=== PATIENT | male | born 1965 | race American Indian/Alaskan Native ===

== ENCOUNTER 2021-11-11 18:13 | Inpatient (IN) | payer MEDICARE ==
[2021-11-11] MEDS ORDERED: cefTRIAXone/NS 2 GM/100 ML 2 GM/100 ML BAG IV ONE ×2 (19:15→22:30)
[2021-11-11] MEDS ORDERED: AZITHROMYCIN/NS 500 MG/250 ML 500 MG/250 ML BAG IV ONE ×2 (19:15→22:30)
[2021-11-11] MEDS ORDERED: methylPREDNISolone Sod Succinate 125 MG/2 ML INJ IV ONE (19:15)
--- NOTE | 2021-11-11 19:18 | Emergency Department Report ---
ED Shortness of Breath HPI - General Chief Complaint: Dyspnea/Respdistress Stated Complaint: STEFF Time Seen by Provider: 11/11/21 19:01 Source: patient, EMS Mode of arrival: Stretcher Limitations: Physical Limitation - History of Present Illness Initial Comments: Patient is a 56-year-old male who presents emergency room with complaints of shortness of breath. Patient states the shortness of breath started 5 hours ago. Patient states shortness of breath worsening. Patient brought in by EMS. Patient has been intubated in the past. Patient states that the shortness of breath better with rest and worse with movement. Patient states he is bedbound due to his weight. Patient denies chest pain. Patient denies fever and chills. Patient complains of cough. Patient dates the cough is dry. Patient denies recent travel. Patient denies recent international travel. Patient denies exposure to the novel coronavirus. Patient denies sick contacts. Patient denies fever and chills. Patient denies loss of smell.. Patient denies diarrhea. Patient denies coming in contact with anybody with symptoms of the novel coronavirus. MD Complaint: shortness of breath -: Sudden Severity: severe Consistency: constant Improves With: rest Worsens With: movement Associated Symptoms: denies other symptoms Treatments Prior to Arrival: oxygen - Related Data Home Oxygen Therapy: No Allergies Allergy/AdvReac Type Severity Reaction Status Date / Time No Known Allergies Allergy Verified 11/11/21 20:58 ED Review of Systems ROS: Stated complaint: STEFF Other details as noted in HPI Constitutional: denies: chills, fever Eyes: denies: eye pain, eye discharge, vision change ENT: denies: ear pain, throat pain Respiratory: see HPI, cough, shortness of breath. denies: wheezing Cardiovascular: denies: chest pain, palpitations Endocrine: no symptoms reported Gastrointestinal: denies: abdominal pain, nausea, diarrhea Genitourinary: denies: urgency, dysuria Musculoskeletal: denies: back pain, joint swelling, arthralgia Skin: denies: rash, lesions Neurological: denies: headache, weakness, paresthesias Psychiatric: denies: anxiety, depression Hematological/Lymphatic: denies: easy bleeding, easy bruising ED Past Medical Hx - Past Medical History Previous Medical History?: Yes Hx Hypertension: Yes Hx Congestive Heart Failure: No Hx Diabetes: No Additional medical history: obesity, - Surgical History Past Surgical History?: Yes Additional Surgical History: Right hand surgery - Family History Family history: no significant - Social History Smoking Status: Never Smoker Substance Use Type: None ED Physical Exam - General Limitations: Physical Limitation General appearance: lethargic - Head Head exam: Present: atraumatic, normocephalic - Eye Eye exam: Present: normal appearance - ENT ENT exam: Present: mucous membranes dry - Neck Neck exam: Present: normal inspection - Respiratory Respiratory exam: Present: respiratory distress, accessory muscle use, decreased breath sounds - Cardiovascular Cardiovascular Exam: Present: regular rate, normal rhythm. Absent: systolic murmur, diastolic murmur, rubs, gallop - GI/Abdominal GI/Abdominal exam: Present: soft, normal bowel sounds - Rectal Rectal exam: Present: deferred - Extremities Exam Extremities exam: Present: normal inspection - Back Exam Back exam: Present: normal inspection - Neurological Exam Neurological exam: Present: alert, oriented X3 - Skin Skin exam: Present: warm, dry, intact, normal color. Absent: rash ED Course Vital Signs 11/11/21 11/11/21 11/11/21 18:19 19:09 20:34 Temperature 98.2 F Pulse Rate 91 H 86 91 H Respiratory 18 36 H 14 Rate Blood Pressure 136/68 Blood Pressure 103/78 131/73 [Left] O2 Sat by Pulse 100 95 100 Oximetry 11/11/21 11/11/21 11/11/21 21:19 22:59 23:00 Temperature Pulse Rate 87 76 76 Respiratory 20 20 14 Rate Blood Pressure Blood Pressure 124/82 74/30 104/53 [Left] O2 Sat by Pulse 99 100 93 Oximetry 11/11/21 11/12/21 11/12/21 23:13 00:04 00:09 Temperature Pulse Rate 82 87 86 Respiratory 17 17 19 Rate Blood Pressure Blood Pressure 113/61 145/79 145/79 [Left] O2 Sat by Pulse 95 97 100 Oximetry - Reevaluation(s) Reevaluation #1: Patient arrived via EMS. Patient is hypoxic. Patient will be placed on BiPAP. Respiratory therapy placed on BiPAP. 11/11/21 190 Patient's oxygen saturation on BiPAP is 96%. We will continue to monitor the patient. 11/11/21 19:10 Reevaluation #2: Patient increasing lethargic. Patient having increased work of breathing and worsening hypoxia. Patient will be intubated. 11/11/21 20:55 Reevaluation #3: Patient intubated without difficulty. See procedure note. 11/11/21 21:20 Reevaluation #4: Central line placed. Patient did not have any IV access post intubation so a central line was placed in the right femoral vein. See procedure note. Patient tolerated procedure well. Patient is intubated and the patient's oxygen saturation is improved. Patient given sedation. 11/11/21 22:06 Patient's blood pressure is decreasing. Patient was given a fluid bolus of 500 mils. Patient also be placed on Levophed. We will continue to monitor blood pressure. Patient's oxygen stable on the vent. 11/11/21 22:33 Reevaluation #5: Patient's blood pressure is improving. 11/11/21 23:02 Patient still on the fentanyl drip and the Levophed. Patient's blood pressure is stabilizing. 11/11/21 23:31 - Consultations Consultation #1: Hospitalist consulted for admission. Hospitalist to admit patient. 11/11/21 22:34 Consultation #2: I discussed the case with nephrology, Dr. Vargas. Dr. Vargas wants to emergent dialysis for the patient. 11/11/21 22:45 Consultation #3: I discussed the case with Dr. Umana. Dr. Umana is going to come in place the Vas-Cath. Dr. Buckley also accepted the patient to be admitted to the ICU. 11/11/21 23:30 - Central Line Placement Right Femoral Consent Obtained: emergent situation Time Out Performed: Yes Patient Placed on Monitor/Pulse Ox: Yes MD Prep: mask, gown, gloves Central Line Prep: Chlorhexidine scrub, sterile drapes applied Local Anesthesia Used: Lidocaine 1% Ultrasound Used for Placement: Yes Central Line Lumen Inserted: triple Reason for Insertion: Emergency Venous Access Bloods Obtained for Lab: No Central Line Position: good blood return, all ports aspirated, flus, sutured in place with 2-0 Dressing Applied: Tegaderm Patient Tolerated Procedure: well, no complications Complications: none Additional Comments: Central line placed without difficulty. Patient had no complications. Minimal blood loss. Patient required 1 stick. Humbertoger technique used. - Intubation Time Out Performed: Yes Sedative: Etomidate Paralytic: Rocuronium Laryngoscope: fiberoptic video scope Size: 3 Assist Device Used: fiberoptic device ET Tube Size: 7.5 Tube Secured Location: teeth Tube Placement Confirmation: visualized tube passing t, equal breath sounds bilat, no breath sounds over epi, confirmation by capnometr Patient Tolerated Procedure: well, no complications ED Medical Decision Making - Lab Data Result diagrams: 11/11/21 19:49 11/11/21 19:49 - EKG Data -: EKG Interpreted by Me EKG shows normal: sinus rhythm, axis, intervals, QRS complexes, ST-T waves Rate: normal - Radiology Data Radiology results: report reviewed interpreted by me: Chest x-ray shows a right sided pneumonia. CHEST 1 VIEW 11/11/2021 6:39 PM INDICATION / CLINICAL INFORMATION: Dyspnea. COMPARISON: None available. FINDINGS: SUPPORT DEVICES: None. Diffuse opacities are seen throughout the right lung with almost complete opacification. Increased interstitial prominence throughout the left lung. Heart is enlarged - Medical Decision Making Patient is a 56-year-old male who presented to the emergency room with complaints of shortness of breath and dyspnea on exertion and cough. Patient initially started on BiPAP. However, the patient continued to decline and became increasingly lethargic and increased work of breathing as well as hypoxic while on BiPAP. Patient eventually was intubated. Patient intubated without difficulty. Patient's hypoxia improved with post intubation. Patient was placed on a fentanyl drip for sedation. After initial evaluation, the patient was given early antibiotics due to the high suspicion of a pneumonia. Patient had a chest x-ray which shows pneumonia. I personally reviewed the chest x-ray. After the patient, the patient had a central line placed for good IV access. Patient had a triple-lumen placed in the right femoral vein. Patient had labs done which showed multiple abnormalities to include acute renal failure, hyperkalemia, elevated WBC, multiple chemistry abnormalities. Patient eventually became hypoxic and the patient was placed on Levophed. Patient was also given normal saline bolus. Patient's blood pressure responded well to saline and Levophed. I then discussed the patient with the hospitalist for admission. Patient was accepted to the hospitalist however I consulted nephrology and creative manager prior to admission. The medical doctor md recommended emergent dialysis. I then discussed the case with the creative manager to have the creative manager come place a dialysis cath. Critical care time documented due to the multiple reassessments, prolonged time at the bedside, interpretation of diagnostics and labs And discussion with consultants. - Differential Diagnosis Shortness of breath, respiratory failure, pneumonia Critical Care Time: Yes Critical care time in (mins) excluding proc time.: 80 Critical care attestation.: If time is entered above; I have spent that time in minutes in the direct care of this critically ill patient, excluding procedure time. Critical Care Time: 80 minutes ED Disposition Clinical Impression: Hypoxia, SOB (shortness of breath), Hyperkalemia Acute respiratory failure Qualifiers: Respiratory failure complication: hypoxia Qualified Code(s): J96.01 - Acute respiratory failure with hypoxia Pneumonia Qualifiers: Pneumonia type: due to unspecified organism Laterality: unspecified laterality Lung location: unspecified part of lung Qualified Code(s): J18.9 - Pneumonia, unspecified organism Hypotension Qualifiers: Hypotension type: unspecified hypotension type Qualified Code(s): I95.9 - Hypotension, unspecified Sepsis Qualifiers: Sepsis type: sepsis due to unspecified organism Sepsis acute organ dysfunction status: with acute organ dysfunction Severe sepsis acute organ dysfunction type: acute renal failure Acute renal failure type: unspecified Severe sepsis shock status: without septic shock Qualified Code(s): A41.9 - Sepsis, unspecified organism Acute renal failure (ARF) Qualifiers: Acute renal failure type: unspecified Qualified Code(s): N17.9 - Acute kidney failure, unspecified Disposition: ADMITTED INPATIENT Is pt being admited?: Yes Does the pt Need Aspirin: No Condition: Critical Time of Disposition: 23:06
--- NOTE | 2021-11-11 19:46 | XRay Report ---
CHEST 1 VIEW 11/11/2021 6:39 PM INDICATION / CLINICAL INFORMATION: Dyspnea. COMPARISON: None available. FINDINGS: SUPPORT DEVICES: None. Diffuse opacities are seen throughout the right lung with almost complete opacification. Increased in terstitial prominence throughout the left lung. Heart is enlarged Signer Name: Daniel Stephens MD Signed: 11/11/2021 7:42 PM Workstation Name: [id number]
[2021-11-11 20:25] LABS: Basophils # (Auto) 0.1 K/mm3 (0.0-0.1); Basophils % (Auto) 0.5 % (0.0-1.8); Eosinophils # (Auto) 0.1 K/mm3 (0.0-0.4); Eosinophils % (Auto) 0.9 % (0.0-4.3); Lymphocytes # (Auto) 1.1 K/mm3 (1.2-5.4); Mean Corpuscular HGB Conc 29 % (32-34); Mean Corpuscular Volume 93 fl (84-94); Monocytes % (Auto) 8.8 % (0.0-7.3); Platelet Count 255 K/mm3 (140-440); Red Blood Count 3.73 M/mm3 (3.65-5.03)
[2021-11-11 20:30] LABS: Hematocrit 34.8 % (35.5-45.6); Hemoglobin 10.1 gm/dl (11.8-15.2); Red Cell Distribution Width 20.1 % (13.2-15.2)
[2021-11-11 20:43] LABS: Calcium 7.5 mg/dL (8.4-10.2)
[2021-11-11] MEDS ORDERED: INSULIN REGULAR, HUMAN 100 UNITS/1 ML IV ONE (20:52)
[2021-11-11] MEDS ORDERED: DEXTROSE 50% IN WATER (25GM) 50 ML SYRINGE IV ONE (20:52)
[2021-11-11] MEDS ORDERED: CALCIUM CHLORIDE 1,000 MG/10 ML SYRINGE IV ONE ×2 (20:52→22:30)
[2021-11-11] MEDS ORDERED: LIP THERAPY VASELINE TP PRN (20:56)
[2021-11-11] MEDS ORDERED: MINERAL OIL/PETROLATUM, WHITE OPHTH OINT 3.5 GM OU PRN (20:56)
[2021-11-11] MEDS ORDERED: ETOMIDATE 20 MG/10 ML INJ IV ONE (21:04)
[2021-11-11] MEDS ORDERED: ROCURONIUM 50 MG/5 ML INJ IV ONE (21:05)
[2021-11-11] MEDS: fentaNYL DRIP Premix 2,000 MCG/100 ML BAG IV SCH (21:17)
[2021-11-11 21:20] LABS: Chol/HDL Ratio 3.39 %
[2021-11-11] MEDS ORDERED: LORazepam 2 MG/ML VIAL ONE (21:36)
[2021-11-11] MEDS ORDERED: LORazepam 2 MG/ML VIAL IM ONE (21:43)
[2021-11-11] MEDS: fentaNYL 100 MCG/2 ML INJ IV PRN (22:17)
[2021-11-11] MEDS ORDERED: methylPREDNISolone Sod Succinate 125 MG/2 ML INJ ONE (22:20)
[2021-11-11] MEDS ORDERED: SODIUM CHLORIDE 0.9% 500 ML 500 ML ONE (22:27)
[2021-11-11] MEDS ORDERED: SODIUM CHLORIDE 0.9% 500 ML 500 ML IV ONE (22:31)
[2021-11-11] MEDS: NORepinephrine/NS 8 MG-250 ML 8 MG/250 ML INFUS..BTL IV SCH (22:34)
[2021-11-11] MEDS ORDERED: HYDROmorphone 1 MG/1 ML INJ IV PRN (22:40)
[2021-11-11] MEDS ORDERED: DEXTROSE 50% IN WATER (25GM) 50 ML SYRINGE IV PRN (22:40)
[2021-11-11] MEDS ORDERED: ACETAMINOPHEN 325 MG TAB PO PRN (22:40)
[2021-11-11] MEDS ORDERED: MORPHINE 2 MG/1 ML INJ IV PRN (22:40)
[2021-11-11] MEDS ORDERED: ALBUTEROL 2.5 MG/3 ML NEBU IH PRN (22:40)
[2021-11-11] MEDS ORDERED: ONDANSETRON 4 MG/2 ML INJ IV PRN (22:40)
[2021-11-11] MEDS ORDERED: ALBUTEROL 2.5 MG/3 ML NEBU IH ONE (22:49)
--- NOTE | 2021-11-11 22:49 | History and Physical Report ---
History of Present Illness Date of examination: 11/11/21 Date of admission: 11/11/21 Chief complaint: Acute respiratory failure History of present illness: 56-year-old male with history of diabetes, hypertension, obesity was brought to the emergency room because of shortness of breath. Patient states the shortness of breath started 5 hours ago. Patient states shortness of breath worsening. Patient brought in by EMS. Patient has been intubated in the past. Patient states that the shortness of breath better with rest and worse with movement. Patient states he is bedbound due to his weight. Patient denies chest pain. Patient denies fever and chills. Patient complains of cough. Patient dates the cough is dry. In the emergency room patient is found to have acute respiratory failure subsequently patient was intubated. Patient also found to have acute renal failure BUN is 107 creatinine 13.8, potassium 7.6, bicarb 30, WBC 11.5, chest x- ray shows diffuse opacities are seen throughout the right lung with almost complete opacification. Increased interstitial prominence throughout the left lung. So going to admit the patient to the ICU put the patient on IV antibiotic patient already get insulin D50 calcium gluconate and Kayexalate. ER physician talked with critical care and nephrology for emergent hemodialysis and management Past History Past Medical History: diabetes, hypertension, other (Obesity) Past Surgical History: Other (Right hand surgery) Social history: other (Non-smoker) Family history: no significant family history Medications and Allergies Allergies Allergy/AdvReac Type Severity Reaction Status Date / Time No Known Allergies Allergy Verified 11/11/21 20:58 Active Meds: Active Medications Fentanyl (Fentanyl 100 Mcg/2 Ml Inj) 50 mcg IV Q10MIN PRN PRN Reason: ANALGESIA Last Admin: 11/11/21 22:17 Dose: 50 mcg Hydrophilic Ointment (Lip Therapy Vaseline) 1 applic TP Q2HR PRN PRN Reason: Dry Lips Fentanyl Citrate (Fentanyl Drip Premix) 2,000 mcg in 100 mls @ 13.608 mls/hr IV TITR BAO; Protocol Last Titration: 11/11/21 22:18 Dose: 1 mcg/kg/hr, 13.608 mls/hr Azithromycin (Zithromax/Ns) 500 mg in 250 mls @ 250 mls/hr IV ONCE ONE; Protocol Stop: 11/11/21 23:29 Last Admin: 11/11/21 22:43 Dose: 250 mls/hr Ceftriaxone Sodium (Rocephin/Ns 2 Gm/100 Ml) 2 gm in 100 mls @ 200 mls/hr IV ONCE ONE; Protocol Stop: 11/11/21 22:59 Last Admin: 11/11/21 22:42 Dose: 200 mls/hr NORepinephrine/NS 8 MG-250 ML (Norepinephrine/Ns 8 Mg-250 Ml (Double Conc)) 8 mg in 250 mls @ 3.75 mls/hr IV TITRATE BAO; Protocol Last Admin: 11/11/21 22:34 Dose: 2 mcg/min, 3.75 mls/hr Sodium Chloride (Nacl 0.9% 500 Ml) 500 mls @ 999 mls/hr IV ONCE ONE Stop: 11/11/21 23:01 Multi-Ingred Cream/Lotion/Oil/Oint (Mineral Oil/Petrolatum, White Ophth Oint 3.5 Gm) 1 applic OU Q4HR PRN PRN Reason: Dry Eye(s) Review of Systems All systems: negative Constitutional: weakness, malaise, lethargy Cardiovascular: shortness of breath, dyspnea on exertion Respiratory: shortness of breath, dyspnea on exertion Exam - Constitutional Vitals: Temp Pulse Resp BP Pulse Ox 98.2 F 87 20 124/82 99 11/11/21 18:19 11/11/21 21:19 11/11/21 21:19 11/11/21 21:19 11/11/21 21:19 General appearance: Present: severe distress - EENT Eyes: Present: PERRL ENT: hearing intact, clear oral mucosa - Neck Neck: Present: supple, normal ROM - Respiratory Respiratory effort: normal Respiratory: bilateral: diminished - Cardiovascular Heart Sounds: Present: S1 & S2. Absent: rub, click - Extremities Extremities: pulses symmetrical, No edema Peripheral Pulses: within normal limits - Abdominal General gastrointestinal: Present: soft, non-tender, non-distended, normal bowel sounds Male genitourinary: Present: normal - Integumentary Integumentary: Present: clear, warm, dry - Musculoskeletal Musculoskeletal: gait normal, strength equal bilaterally - Psychiatric Psychiatric: other (Patient is on vent) - Neurologic Neurologic: CNII-XII intact, moves all extremities, other (Patient is on vent) HEART Score - HEART Score Troponin: Troponin T 0.324 ng/mL (0.00-0.029) H* 11/11/21 19:49 Results - Labs CBC & Chem 7: 11/11/21 19:49 11/11/21 19:49 Labs: Laboratory Last Values WBC 11.5 K/mm3 (4.5-11.0) H 11/11/21 19:49 RBC 3.73 M/mm3 (3.65-5.03) 11/11/21 19:49 Hgb 10.1 gm/dl (11.8-15.2) L 11/11/21 19:49 Hct 34.8 % (35.5-45.6) L 11/11/21 19:49 MCV 93 fl (84-94) 11/11/21 19:49 MCH 27 pg (28-32) L 11/11/21 19:49 MCHC 29 % (32-34) L 11/11/21 19:49 RDW 20.1 % (13.2-15.2) H 11/11/21 19:49 Plt Count 255 K/mm3 (140-440) 11/11/21 19:49 Lymph % (Auto) 10.0 % (13.4-35.0) L 11/11/21 19:49 [place] % (Auto) 8.8 % (0.0-7.3) H 11/11/21 19:49 Eos % (Auto) 0.9 % (0.0-4.3) 11/11/21 19:49 Baso % (Auto) 0.5 % (0.0-1.8) 11/11/21 19:49 Lymph # (Auto) 1.1 K/mm3 (1.2-5.4) L 11/11/21 19:49 [place] # (Auto) 1.0 K/mm3 (0.0-0.8) H 11/11/21 19:49 Eos # (Auto) 0.1 K/mm3 (0.0-0.4) 11/11/21 19:49 Baso # (Auto) 0.1 K/mm3 (0.0-0.1) 11/11/21 19:49 Seg Neutrophils % 79.8 % (40.0-70.0) H 11/11/21 19:49 Seg Neutrophils # 9.2 K/mm3 (1.8-7.7) H 11/11/21 19:49 Sodium 140 mmol/L (137-145) 11/11/21 19:49 Potassium 7.6 mmol/L (3.6-5.0) H* 11/11/21 19:49 Chloride 107.8 mmol/L (98-107) H 11/11/21 19:49 Carbon Dioxide 13 mmol/L (22-30) L 11/11/21 19:49 Anion Gap 27 mmol/L 11/11/21 19:49 BUN 107 mg/dL (9-20) H 11/11/21 19:49 Creatinine 13.8 mg/dL (0.8-1.3) H 11/11/21 19:49 Estimated GFR 5 ml/min 11/11/21 19:49 BUN/Creatinine Ratio 8 % 11/11/21 19:49 Glucose 96 mg/dL (75-100) 11/11/21 19:49 Lactic Acid 0.90 mmol/L (0.7-2.0) 11/11/21 19:49 Calcium 7.5 mg/dL (8.4-10.2) L 11/11/21 19:49 Total Bilirubin 0.40 mg/dL (0.1-1.2) 11/11/21 19:49 AST 10 units/L (5-40) 11/11/21 19:49 ALT 7 units/L (7-56) 11/11/21 19:49 Alkaline Phosphatase 111 units/L (35-129) 11/11/21 19:49 Troponin T 0.324 ng/mL (0.00-0.029) H* 11/11/21 19:49 Total Protein 9.1 g/dL (6.3-8.2) H 11/11/21 19:49 Albumin 3.0 g/dL (3.9-5) L 11/11/21 19:49 Albumin/Globulin Ratio 0.5 % 11/11/21 19:49 Triglycerides 79 mg/dL (2-149) 11/11/21 19:49 Cholesterol 146 mg/dL (50-199) 11/11/21 19:49 LDL Cholesterol Direct 85 mg/dL (50-130) 11/11/21 19:49 HDL Cholesterol 43 mg/dL (40-59) 11/11/21 19:49 Cholesterol/HDL Ratio 3.39 % 11/11/21 19:49 - Imaging and Cardiology Chest x-ray: report reviewed Assessment and Plan VTE prophylaxis?: Chemical Plan of care discussed with patient/family: Yes - Patient Problems (1) Acute respiratory failure Current Visit: Yes Status: Acute Qualifiers: Respiratory failure complication: hypoxia Qualified Code(s): J96.01 - Acute respiratory failure with hypoxia Plan to address problem: Admit the patient to the ICU. Patient is on vent. DuoNeb by nebulizer every 4 hours. Albuterol via nebulizer every 4 hours as needed. Will consult critical care evaluation (2) Pneumonia Current Visit: Yes Status: Acute Plan to address problem: Rocephin 2 g IV daily. Zithromax 500 g p.o. daily. DuoNeb by nebulizer every 4 hours. Blood culture and sputum culture. Consult critical care evaluation. Recheck CBC in the morning (3) Hypoxia Current Visit: Yes Status: Acute Plan to address problem: Patient is on vent. DuoNeb by nebulizer every 4 hours. Albuterol via nebulizer every 4 hours as needed. Will consult critical care evaluation (4) KD (acute kidney injury) Current Visit: Yes Status: Acute Plan to address problem: Avoid nephrotoxic drug. Half-normal saline at the rate of 100 cc/h. Renally dose medication. Case discussed with nephrology for emergent dialysis. Recheck BMP in the morning (5) Hyperkalemia Current Visit: Yes Status: Acute Plan to address problem: Patient already get insulin regular 10 units IV x1 dose. D50 x1 ampoule. Calcium chloride 1000 mg IV x1 dose. Kayexalate 30 g p.o. x1 dose. Case discussed with nephrology for emergent dialysis. Recheck BMP in the morning (6) Diabetes Current Visit: Yes Status: Acute Plan to address problem: Accu-Chek every 6 hours with Humalog moderate dose coverage. Diabetic education (7) Elevated troponin Current Visit: Yes Status: Acute Plan to address problem: Aspirin 325 mg p.o. daily. Lipitor 40 mg p.o. daily. Serial cardiac enzymes. Echocardiogram. Cardiology evaluation (8) Hypertension Current Visit: Yes Status: Acute Plan to address problem: Hydralazine 10 mg IV every 6 hours as needed. We continue the home medication (9) Obesity Current Visit: Yes Status: Acute Plan to address problem: Counseled regarding weight reduction. Outpatient referral with bariatric surgery (10) DVT prophylaxis Current Visit: Yes Status: Acute Plan to address problem: Heparin 5000 units subcu every 12 hours for DVT prophylaxis. Pepcid 20 mg IV every 12 hours for GI prophylaxis. Patient is a full code
[2021-11-11] MEDS ORDERED: CALCIUM GLUCONATE 2,000 MG in SODIUM CHLORIDE 0.9% 100 ML IV ONE (22:51)
[2021-11-11] MEDS ORDERED: SODIUM BICARB 8.4% 50 MEQ/50 ML SYRINGE IV ONE (22:53)
[2021-11-11] MEDS ORDERED: SODIUM POLYSTYRENE 15 GM/60 ML ORAL LIQD PO ONE (22:54)
--- NOTE | 2021-11-11 22:59 | Progress Note ---
Subjective Date of service: 11/11/21 Interval history: Consulted for renal failure, hyperkalemia, acidosis. Medical Management for high K ordered. R&B of [employer] CLERK d/w family who are agreeable to and consent for dialysis. ER consulting vascular for vascath placmeent and stat HD ordered for afterwards. Mayur Vargas MD [phone] Objective - Vital Signs Vital signs: Vital Signs - 12hr 11/11/21 11/11/21 11/11/21 18:19 19:09 20:34 Temperature 98.2 F Pulse Rate 91 H 86 91 H Respiratory 18 36 H 14 Rate Blood Pressure 136/68 Blood Pressure 103/78 131/73 [Left] O2 Sat by Pulse 100 95 100 Oximetry 11/11/21 21:19 Temperature Pulse Rate 87 Respiratory 20 Rate Blood Pressure Blood Pressure 124/82 [Left] O2 Sat by Pulse 99 Oximetry - Lab 11/11/21 19:49 11/11/21 19:49 Most recent lab results Calcium 7.5 mg/dL (8.4-10.2) L 11/11/21 19:49 Medications & Allergies - Medications Allergies/Adverse Reactions: Allergies No Known Allergies Allergy (Verified 11/11/21 20:58) Active Medications: Generic Name Dose Route Start Last Admin Trade Name Freq PRN Reason Stop Dose Admin Acetaminophen 650 mg 11/11/21 22:40 Acetaminophen 325 Mg Tab PO Q4H PRN Pain MILD(1-3)/Fever >100.5/SOTO Albuterol 2.5 mg 11/11/21 22:40 Albuterol 2.5 Mg/3 Ml Nebu IH Q3HRT PRN Shortness Of Breath Albuterol/Ipratropium 1 ampul 11/12/21 02:00 Ipratropium/Albuterol Sulfate 3 Ml Ampul.Neb IH Q6HRT BAO Azithromycin 500 mg 11/12/21 10:00 Azithromycin 250 Mg Tab PO QDAY BAO Protocol Dextrose 50 ml 11/11/21 22:40 Dextrose 50% In Water (25gm) 50 Ml Syringe IV Q30MIN PRN Hypoglycemia Protocol Dextrose 0 ml 11/11/21 23:00 Dextrose 10% *Hypoglycemia IV 11/11/21 23:01 ONCE ONE Famotidine 20 mg 11/12/21 10:00 Famotidine 20 Mg/2 Ml Inj IV DAILY BAO Fentanyl 50 mcg 11/11/21 20:56 11/11/21 22:17 Fentanyl 100 Mcg/2 Ml Inj IV 50 mcg Q10MIN PRN Administration ANALGESIA Heparin Sodium (Porcine) 5,000 unit 11/12/21 10:00 Heparin 5,000 Unit/1 Ml Vial SUB-Q Q12HR [facility] Hydromorphone HCl 0.5 mg 11/11/21 22:40 Hydromorphone 1 Mg/1 Ml Inj IV Q3H PRN Pain , Severe (7-10) Hydrophilic Ointment 1 applic 11/11/21 20:56 Lip Therapy Vaseline TP Q2HR PRN Dry Lips Fentanyl Citrate 2,000 mcg in 100 mls @ 13.608 mls/hr 11/11/21 21:00 11/11/21 22:18 Fentanyl Drip Premix IV 1 mcg/kg/hr TITR BAO 13.608 mls/hr Titration Protocol 1 MCG/KG/HR Azithromycin 500 mg in 250 mls @ 250 mls/hr 11/11/21 22:30 11/11/21 22:43 Zithromax/Ns IV 11/11/21 23:29 250 mls/hr ONCE ONE Administration Protocol Ceftriaxone Sodium 2 gm in 100 mls @ 200 mls/hr 11/11/21 22:30 11/11/21 22:42 Rocephin/Ns 2 Gm/100 Ml IV 11/11/21 22:59 200 mls/hr ONCE ONE Administration Protocol NORepinephrine/NS 8 MG-250 ML 8 mg in 250 mls @ 3.75 mls/hr 11/11/21 23:00 11/11/21 22:34 Norepinephrine/Ns 8 Mg-250 Ml (Double Conc) IV 2 mcg/min TITRATE BAO 3.75 mls/hr Administration Protocol 2 MCG/MIN Sodium Chloride 500 mls @ 999 mls/hr 11/11/21 22:31 Nacl 0.9% 500 Ml IV 11/11/21 23:01 ONCE ONE Sodium Chloride 1,000 mls @ 100 mls/hr 11/11/21 23:00 Nacl 0.45% 1000 Ml IV DIRECT BAO Ceftriaxone Sodium 2 gm in 100 mls @ 200 mls/hr 11/12/21 22:00 Rocephin/Ns 2 Gm/100 Ml IV Q24H BAO Protocol Calcium Gluconate 2,000 mg/ 120 mls @ 660 mls/hr 11/11/21 22:51 Sodium Chloride IV 11/11/21 23:01 ONCE ONE Insulin Human Lispro 0 unit 11/12/21 00:00 Insulin Lispro 100 Unit/Ml SUB-Q Q6HR [facility] Protocol Morphine Sulfate 2 mg 11/11/21 22:40 Morphine 2 Mg/1 Ml Inj IV Q4H PRN Pain, Moderate (4-6) Multi-Ingred Cream/Lotion/Oil/Oint 1 applic 11/11/21 20:56 Mineral Oil/Petrolatum, White Ophth Oint 3.5 Gm OU Q4HR PRN Dry Eye(s) Ondansetron HCl 4 mg 11/11/21 22:40 Ondansetron 4 Mg/2 Ml Inj IV Q8H PRN Nausea And Vomiting Sodium Chloride 10 ml 11/12/21 10:00 Sodium Chloride 0.9% 10 Ml Flush Syringe IV BID [facility] Sodium Chloride 10 ml 11/11/21 22:40 Sodium Chloride 0.9% 10 Ml Flush Syringe IV PRN PRN LINE FLUSH
[2021-11-11] MEDS ORDERED: DEXTROSE 10% *Hypoglycemia IV ONE (23:00)
[2021-11-11] MEDS: CALC GLUCONATE 1GM/NS 100 ML 1 GM/100 ML BAG IV SCH ×2 (23:00→23:40)
[2021-11-11] MEDS ORDERED: SODIUM CHLORIDE 0.45% 1000 ML 1,000 ML IV SCH (23:00)
[2021-11-11] MEDS ORDERED: DEXTROSE 10% *Hypoglycemia IV PRN (23:03)
[2021-11-12] MEDS: fentaNYL 100 MCG/2 ML INJ IV PRN (00:12)
--- NOTE | 2021-11-12 01:48 | Procedure Note ---
Date of procedure: 11/12/21 Pre-op diagnosis: Renal Failure Post-op diagnosis: same Procedure: Right IJ trialysis catheter placement Patient's sister had just left but has been informed of need for HD so catheter placed emergently. Using ultrasound guidance, right IJ was accessed and using seldinger techingue a 13 pakistani triple lumen vascath was placed. Good blood return and flushing of all ports. Sutured in and dressed by nursing. Awaiting stat CXR. No immediate complications noted. Anesthesia: MAC Surgeon: JAKE KRUEGER Estimated blood loss: none Pathology: none Condition: critical Disposition: ICU
--- NOTE | 2021-11-12 01:53 | Consultation ---
History of Present Illness Consult date: 11/12/21 Requesting physician: FIDEL REDMAN III Reason for consult: hypoxemia, other (need for vascath) History of present illness: 56 y/o morbidly obese male, bedbound secondary to weight per chart admitted with acute respiratory failure, and acute renal failure. Patient is currently intubated and sedated on Fent. Per ED physician, patient was recently admitted at another hospital with a negative work up per family (sister). I was called in to place vascath and consulted for help with vent management. Per the chart, patient has been intubated before. He has never been to [facility] based on this MRN. Past History Past Medical History: diabetes, hypertension, other (Obesity) Past Surgical History: Other (Right hand surgery) Social history: other (Non-smoker) Family history: no significant family history Medications and Allergies Allergies Allergy/AdvReac Type Severity Reaction Status Date / Time No Known Allergies Allergy Verified 11/11/21 20:58 Active Meds: Active Medications Acetaminophen (Acetaminophen 325 Mg Tab) 650 mg PO Q4H PRN PRN Reason: Pain MILD(1-3)/Fever >100.5/SOTO Albuterol (Albuterol 2.5 Mg/3 Ml Nebu) 2.5 mg IH Q3HRT PRN PRN Reason: Shortness Of Breath Albuterol/Ipratropium (Ipratropium/Albuterol Sulfate 3 Ml Ampul.Neb) 1 ampul IH Q6HRT [facility] Aspirin (Aspirin 325 Mg Tab) 325 mg PO QDAY [facility] Atorvastatin Calcium (Atorvastatin 40 Mg Tab) 40 mg PO QHS [facility]O Azithromycin (Azithromycin 250 Mg Tab) 500 mg PO QDAY [facility]; Protocol Dextrose (Dextrose 10% *Hypoglycemia) 0 ml IV PRN PRN PRN Reason: Hypoglycemia Famotidine (Famotidine 20 Mg/2 Ml Inj) 20 mg IV DAILY [facility] Fentanyl (Fentanyl 100 Mcg/2 Ml Inj) 50 mcg IV Q10MIN PRN PRN Reason: ANALGESIA Last Admin: 11/12/21 00:12 Dose: 50 mcg Heparin Sodium (Porcine) (Heparin 5,000 Unit/1 Ml Vial) 5,000 unit SUB-Q Q12HR [facility] Hydromorphone HCl (Hydromorphone 1 Mg/1 Ml Inj) 0.5 mg IV Q3H PRN PRN Reason: Pain , Severe (7-10) Hydrophilic Ointment (Lip Therapy Vaseline) 1 applic TP Q2HR PRN PRN Reason: Dry Lips Fentanyl Citrate (Fentanyl Drip Premix) 2,000 mcg in 100 mls @ 13.608 mls/hr IV TITR [facility]; Protocol Last Titration: 11/12/21 00:11 Dose: 2 mcg/kg/hr, 27.216 mls/hr NORepinephrine/NS 8 MG-250 ML (Norepinephrine/Ns 8 Mg-250 Ml (Double Conc)) 8 mg in 250 mls @ 3.75 mls/hr IV TITRATE [facility]; Protocol Last Titration: 11/11/21 23:08 Dose: 10 mcg/min, 18.75 mls/hr Sodium Chloride (Nacl 0.45% 1000 Ml) 1,000 mls @ 100 mls/hr IV DIRECT [facility] Ceftriaxone Sodium (Rocephin/Ns 2 Gm/100 Ml) 2 gm in 100 mls @ 200 mls/hr IV Q24H [facility]; Protocol Insulin Human Lispro (Insulin Lispro 100 Unit/Ml) 0 unit SUB-Q Q6HR [facility]; Pro tocol Morphine Sulfate (Morphine 2 Mg/1 Ml Inj) 2 mg IV Q4H PRN PRN Reason: Pain, Moderate (4-6) Multi-Ingred Cream/Lotion/Oil/Oint (Mineral Oil/Petrolatum, White Ophth Oint 3.5 Gm) 1 applic OU Q4HR PRN PRN Reason: Dry Eye(s) Ondansetron HCl (Ondansetron 4 Mg/2 Ml Inj) 4 mg IV Q8H PRN PRN Reason: Nausea And Vomiting Sodium Chloride (Sodium Chloride 0.9% 10 Ml Flush Syringe) 10 ml IV BID [facility]O Sodium Chloride (Sodium Chloride 0.9% 10 Ml Flush Syringe) 10 ml IV PRN PRN PRN Reason: LINE FLUSH Review of Systems ROS unobtainable: due to endotracheal tube, due to mental status Physical Examination Vital signs: Vital Signs Temp Pulse Resp BP Pulse Ox 98.2 F 91 H 18 103/78 100 11/11/21 18:19 11/11/21 18:19 11/11/21 18:19 11/11/21 18:19 11/11/21 18:19 General appearance: comatose Eyes: non-icteric ENT: other (orally intubated and sedated) Neck: supple, other (large in circumference) Effort: normal Ascultation: Bilateral: diminished breath sounds Cardiovascular: regular rate and rhythm Gastrointestinal: normoactive bowel sounds Extremities: edema, anasarca unable to assess Results - Laboratory Findings CBC and BMP: 11/11/21 19:49 11/11/21 19:49 Abnormal lab findings: Abnormal Labs 11/11/21 11/11/21 11/11/21 19:49 19:49 23:29 WBC 11.5 H Hgb 10.1 L Hct 34.8 L MCH 27 L MCHC 29 L RDW 20.1 H Lymph % (Auto) 10.0 L Pike % (Auto) 8.8 H Lymph # (Auto) 1.1 L Pike # (Auto) 1.0 H Seg Neutrophils % 79.8 H Seg Neutrophils # 9.2 H Potassium 7.6 H* Chloride 107.8 H Carbon Dioxide 13 L BUN 107 H Creatinine 13.8 H Calcium 7.5 L Total Creatine Kinase 268 H Troponin T 0.324 H* Total Protein 9.1 H Albumin 3.0 L PTH Intact 11/11/21 23:29 WBC Hgb Hct MCH MCHC RDW Lymph % (Auto) Pike % (Auto) Lymph # (Auto) Pike # (Auto) Seg Neutrophils % Seg Neutrophils # Potassium Chloride Carbon Dioxide BUN Creatinine Calcium Total Creatine Kinase Troponin T Total Protein Albumin PTH Intact 1174 H - Diagnostic Findings Chest x-ray: image reviewed Assessment and Plan 56 y/o morbidly obese male with acute respiratory failure, requiring intubation and now in acute renal failure and in need of HD 1. Obtain ABG 2. Place Iglesias catheter 3. Wean Pressors for maps greater than 65 4. Insulin, D50 for Hyperkalemia, and HD per renal 5. Stopped scheduled duonebs 6. Stopped abx 7. Obtain BNP with morning labs 8. Guarded prognosis. CCT 31 minutes.
[2021-11-12] MEDS ORDERED: IPRATROPIUM/ALBUTEROL SULFATE 3 ML AMPUL.NEB IH SCH (02:00)
[2021-11-12] MEDS: INSULIN LISPRO 100 UNIT/ML SUB-Q SCH ×4 (02:55→17:25)
[2021-11-12 02:58] LABS: ABG Base Excess -10.6 mmol/L (-2.0-3.0); ABG HCO3 17.4 mmol/L (20.0-26.0); ABG Methemoglobin 0.6 % (0.0-1.5); ABG Oxygen Saturation 96.8 % (95.0-99.0); ABG PCO2 48.7 mm Hg; ABG PO2 100.6 mm Hg (80.0-90.0)
[2021-11-12 03:07] LABS: ABG PH 7.172 pH Units (7.350-7.450)
[2021-11-12 03:15] LABS: Bacteria,Urine 2+ /HPF (Negative); Bilirubin,Urine NEG (Negative); Blood,Urine SM (Negative); Color,Urine Yellow (Yellow); Mucus,Urine FEW /HPF; Urobilinogen,Urine < 2.0 mg/dL (<2.0)
[2021-11-12 03:17] LABS: Protein,Urine >500 mg/dL (Negative)
[2021-11-12] MEDS: D5W/0.9% NACL 1,000 ML IV SCH ×2 (03:28→22:51)
[2021-11-12 03:33] LABS: Creatinine,Urine 189.3 mg/dL (0.1-20.0)
[2021-11-12 03:41] LABS: Iron 24 ug/dL (49-181); Total Iron Binding Capacity 157 mcg/dL (250-450)
[2021-11-12] MEDS: fentaNYL DRIP Premix 2,000 MCG/100 ML BAG IV SCH ×6 (04:50→23:37)
[2021-11-12 05:53] LABS: Hepatitis B Surface Antigen Non-Reactive (Negative); Hepatitis C Virus Antibody Non-Reactive (NonReactive)
[2021-11-12 08:26] LABS: Mean Corpuscular HGB Conc 29 % (32-34); Mean Corpuscular Volume 91 fl (84-94); Platelet Count 261 K/mm3 (140-440); Red Blood Count 3.54 M/mm3 (3.65-5.03)
[2021-11-12 08:31] LABS: Hematocrit 32.3 % (35.5-45.6); Hemoglobin 9.4 gm/dl (11.8-15.2)
[2021-11-12 08:46] LABS: Calcium 8.1 mg/dL (8.4-10.2)
[2021-11-12 09:16] LABS: Basophils % (Manual) 0 % (0.0-1.8); Eosinophils % (Manual) 0 % (0.0-4.3); Total Cells Counted 100
[2021-11-12 09:18] LABS: Platelet Estimate Consistent w Auto; RBC Morphology Normal; Toxic Granulation 1+
--- NOTE | 2021-11-12 09:30 | Consultation ---
History of Present Illness - Reason for Consult Consult date: 11/12/21 acute renal failure - History of Present Illness RFC: KD, Hyperkalemia, acidosis, likely CKD HPI: 56-year-old male with history of diabetes, hypertension, obesity was brought to the emergency room because of shortness of breath. Pt has been found to have KD and acidois/hyperkalemia. Pt is currently intubated on Vent. Pt underwent emergent HD last night after Vascath placement. HD consent was obtained from Sister. ROS: Unable to obtain as pt intubated Past History Past Medical History: diabetes, hypertension, other (Obesity) Past Surgical History: Other (Right hand surgery) Social history: other (Non-smoker) Family history: no significant family history Medications and Allergies Allergies Allergy/AdvReac Type Severity Reaction Status Date / Time No Known Allergies Allergy Verified 11/11/21 20:58 Active Meds: Active Medications Acetaminophen (Acetaminophen 325 Mg Tab) 650 mg PO Q4H PRN PRN Reason: Pain MILD(1-3)/Fever >100.5/SOTO Albuterol (Albuterol 2.5 Mg/3 Ml Nebu) 2.5 mg IH Q3HRT PRN PRN Reason: Shortness Of Breath Aspirin (Aspirin 325 Mg Tab) 325 mg PO QDAY [facility] Atorvastatin Calcium (Atorvastatin 40 Mg Tab) 40 mg PO QHS [facility] Dextrose (Dextrose 10% *Hypoglycemia) 0 ml IV PRN PRN PRN Reason: Hypoglycemia Famotidine (Famotidine 20 Mg/2 Ml Inj) 20 mg IV DAILY [facility] Fentanyl (Fentanyl 100 Mcg/2 Ml Inj) 50 mcg IV Q10MIN PRN PRN Reason: ANALGESIA Last Admin: 11/12/21 00:12 Dose: 50 mcg Heparin Sodium (Porcine) (Heparin 5,000 Unit/1 Ml Vial) 5,000 unit SUB-Q Q12HR [facility] Hydromorphone HCl (Hydromorphone 1 Mg/1 Ml Inj) 0.5 mg IV Q3H PRN PRN Reason: Pain , Severe (7-10) Hydrophilic Ointment (Lip Therapy Vaseline) 1 applic TP Q2HR PRN PRN Reason: Dry Lips Fentanyl Citrate (Fentanyl Drip Premix) 2,000 mcg in 100 mls @ 13.608 mls/hr IV TITR [facility]; Protocol Last Admin: 11/12/21 08:33 Dose: 2 mcg/kg/hr, 27.216 mls/hr NORepinephrine/NS 8 MG-250 ML (Norepinephrine/Ns 8 Mg-250 Ml (Double Conc)) 8 mg in 250 mls @ 3.75 mls/hr IV TITRATE [facility]; Protocol Last Titration: 11/12/21 08:30 Dose: 0 mcg/min, 0 mls/hr Sodium Chloride (Nacl 0.45% 1000 Ml) 1,000 mls @ 100 mls/hr IV DIRECT [facility] Dextrose/Sodium Chloride (D5ns) 1,000 mls @ 50 mls/hr IV DIRECT [facility] Last Admin: 11/12/21 03:28 Dose: 50 mls/hr Insulin Human Lispro (Insulin Lispro 100 Unit/Ml) 0 unit SUB-Q Q6HR [facility]; Protocol Last Admin: 11/12/21 07:10 Dose: Not Given Morphine Sulfate (Morphine 2 Mg/1 Ml Inj) 2 mg IV Q4H PRN PRN Reason: Pain, Moderate (4-6) Multi-Ingred Cream/Lotion/Oil/Oint (Mineral Oil/Petrolatum, White Ophth Oint 3.5 Gm) 1 applic OU Q4HR PRN PRN Reason: Dry Eye(s) Ondansetron HCl (Ondansetron 4 Mg/2 Ml Inj) 4 mg IV Q8H PRN PRN Reason: Nausea And Vomiting Sodium Chloride (Sodium Chloride 0.9% 10 Ml Flush Syringe) 10 ml IV BID [facility] Sodium Chloride (Sodium Chloride 0.9% 10 Ml Flush Syringe) 10 ml IV PRN PRN PRN Reason: LINE FLUSH Exam - Vital Signs Vital signs: Vital Signs Temp Pulse Resp BP Pulse Ox 98.2 F 91 H 18 103/78 100 11/11/21 18:19 11/11/21 18:19 11/11/21 18:19 11/11/21 18:19 11/11/21 18:19 - Physical Exam Narrative exam: General appearance: comatose Eyes: non-icteric ENT: other (orally intubated and sedated) Neck: supple, other (large in circumference) Effort: normal Ascultation: Bilateral: diminished breath sounds Cardiovascular: regular rate and rhythm Gastrointestinal: normoactive bowel sounds Extremities: edema, anasarca unable to assess Results - Lab Results 11/12/21 06:55 11/12/21 06:55 Most recent lab results ABG pH 7.172 pH Units (7.350-7.450) L* 11/12/21 02:28 ABG pCO2 48.7 mm Hg 11/12/21 02:28 ABG pO2 100.6 mm Hg (80.0-90.0) H 11/12/21 02:28 ABG HCO3 17.4 mmol/L (20.0-26.0) L 11/12/21 02:28 ABG O2 Saturation 96.8 % (95.0-99.0) 11/12/21 02:28 Calcium 8.1 mg/dL (8.4-10.2) L 11/12/21 06:55 Urine Creatinine 189.3 mg/dL (0.1-20.0) H 11/12/21 02:20 Urine Sodium 30 mmol/L 11/12/21 02:20 Assessment and Plan (1) Acute respiratory failure (2) Pneumonia (3) Hypoxia (4) KD (acute kidney injury), likely CKD (5) Hyperkalemia (6) Diabetes (7) Elevated troponin (8) Hypertension (9) Obesity (10)Acidosis -No BL Cr available but likely has CKD -R&B of [employer] d/w family last night who agreed to and consented for dialysis. -s/p Vascath by ICU and HD afterwards. HD#2 today -Has been on pressors -Check Renal US, Urine studies -CK not high -PTH high signalling 2HPT from CKD -Intubated on Vent -Eval for HD need daily -Renally dose all meds Critical Care time: 36 minutes
[2021-11-12 09:51] LABS: ABG HCO3 20.1 mmol/L (20.0-26.0); ABG Methemoglobin 0.5 % (0.0-1.5); ABG Oxygen Saturation 99.3 % (95.0-99.0); ABG PCO2 42.2 mm Hg; ABG PH 7.296 pH Units (7.350-7.450); ABG PO2 237.3 mm Hg (80.0-90.0)
[2021-11-12] MEDS ORDERED: AZITHROMYCIN 250 MG TAB PO SCH (10:00)
[2021-11-12] MEDS ORDERED: FAMOTIDINE 20 MG/2 ML INJ IV SCH ×2 (10:00)
[2021-11-12] MEDS ORDERED: SODIUM POLYSTYRENE 15 GM/60 ML ORAL LIQD PO ONE ×3 (10:03→19:00)
[2021-11-12] MEDS: HEPARIN 5,000 UNIT/1 ML VIAL SUB-Q SCH ×2 (11:06→21:55)
--- NOTE | 2021-11-12 11:32 | XRay Report ---
CHEST 1 VIEW INDICATION / CLINICAL INFORMATION: post procedure. COMPARISON: Chest x-ray 11/11/2021 FINDINGS: SUPPORT DEVICES: Endotracheal tube terminates 4 cm to 5 cm above the barbra. Esophagogastric tube ter minates below the inferior margin likely within the stomach. Right IJ central venous catheter termina franklin near the cavoatrial junction.. HEART / MEDIASTINUM: No significant interval change. LUNGS / PLEURA: Diffuse airspace opacification of the right lung is again demonstrated minimally impr rivka. Left lung grossly clear. No pneumothorax. ADDITIONAL FINDINGS: No significant additional findings. IMPRESSION: 1. Minimal improvement in diffuse opacities throughout the right lung. Stable endotracheal tube. Esop hagogastric tube terminates beneath the inferior margin of the image likely within the stomach. Right IJ central venous catheter terminates near the cavoatrial junction. Signer Name: Rubén Dc II, MD Signed: 11/12/2021 2:37 AM Workstation Name: [id number]
--- NOTE | 2021-11-12 11:32 | Electrocardiograph Report ---
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
--- NOTE | 2021-11-12 11:32 | XRay Report ---
CHEST 1 VIEW INDICATION / CLINICAL INFORMATION: ETT placement. COMPARISON: Chest x-ray 11/11/2021 FINDINGS: SUPPORT DEVICES: Endotracheal tube terminates approximately 3 to 4 cm above the barbra. HEART / MEDIASTINUM: Borderline mild cardiomegaly stable. LUNGS / PLEURA: Diffuse airspace opacification of the right chest is demonstrated worsening since com parison study within the upper chest. Left lung is grossly clear for technique utilized. No pneumotho rax. ADDITIONAL FINDINGS: No significant additional findings. IMPRESSION: 1. Right greater than left airspace disease suggesting asymmetric pulmonary edema and/or infection. 2. Endotracheal tube in satisfactory position. Signer Name: Rubén Dc II, MD Signed: 11/12/2021 12:12 AM Workstation Name: [id number]
--- NOTE | 2021-11-12 11:33 | XRay Report ---
CHEST 1 VIEW INDICATION / CLINICAL INFORMATION: follow up respiratory failure STUDY TIME: 738 COMPARISON: 11/12/2021 FINDINGS: SUPPORT DEVICES: Stable HEART / MEDIASTINUM: Stable LUNGS / PLEURA: Congestion is increasing. Infiltrate in the right lung appears increased. No pneumoth orax. ADDITIONAL FINDINGS: No significant additional findings. Signer Name: Scotty Joshua MD Signed: 11/12/2021 8:59 AM Workstation Name: [id number]
--- NOTE | 2021-11-12 11:33 | XRay Report ---
ABDOMEN AP PORTABLE SUPINE 0727 INDICATION: og placement COMPARISON: None available. FINDINGS: Orogastric tube is coiled in the stomach with tip continuing distally into the distal stoma ch area. Signer Name: Scotty Joshua MD Signed: 11/12/2021 9:00 AM Workstation Name: [id number]
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
[2021-11-12] MEDS: ASPIRIN 325 MG TAB PO SCH (12:38)
[2021-11-12 17:25] LABS: Calcium 7.8 mg/dL (8.4-10.2)
--- NOTE | 2021-11-12 18:02 | Consultation ---
History of Present Illness Consult date: 11/12/21 Requesting physician: DAVID MALLOY Consult reason: elevated troponin History of present illness: Patient is a 56-year-old morbidly obese bedbound male who was admitted with acute respiratory failure and acute renal failure. Patient is currently intubated and sedated. As such, majority of HPI has been obtained from chart. Per documentation, patient presented with complaints of shortness of breath that began 5 hours prior to arrival. Associated with a dry cough. No chest pain or additional cardiac complaints reported. Cardiology has been consulted today for evaluation of elevated troponins. Initial troponin noted to be 0.324 upon admission. No repeat troponins have been checked. ECG reveals no acute i schemic changes. Patient is previously unknown to our practice. No prior cardiac work-up on file for review. Past History Past Medical History: diabetes, hypertension, other (chronic lymphedema) Social history: denies: smoking Medications and Allergies Allergies Allergy/AdvReac Type Severity Reaction Status Date / Time No Known Allergies Allergy Verified 11/11/21 20:58 Active Meds: Active Medications Acetaminophen (Acetaminophen 325 Mg Tab) 650 mg PO Q4H PRN PRN Reason: Pain MILD(1-3)/Fever >100.5/SOTO Albuterol (Albuterol 2.5 Mg/3 Ml Nebu) 2.5 mg IH Q3HRT PRN PRN Reason: Shortness Of Breath Aspirin (Aspirin 325 Mg Tab) 325 mg PO QDAY [facility] Last Admin: 11/12/21 12:38 Dose: 325 mg Atorvastatin Calcium (Atorvastatin 40 Mg Tab) 40 mg PO QHS [facility] Dextrose (Dextrose 10% *Hypoglycemia) 0 ml IV PRN PRN PRN Reason: Hypoglycemia Docusate Sodium (Docusate Sodium 100 Mg/10 Ml Oral Liqd) 100 mg PO BID [facility] Famotidine (Famotidine 20 Mg Tab) 20 mg PO QDAY [facility] Fentanyl (Fentanyl 100 Mcg/2 Ml Inj) 50 mcg IV Q10MIN PRN PRN Reason: ANALGESIA Last Admin: 11/12/21 00:12 Dose: 50 mcg Heparin Sodium (Porcine) (Heparin 5,000 Unit/1 Ml Vial) 5,000 unit SUB-Q Q12HR [facility] Last Admin: 11/12/21 11:06 Dose: 5,000 unit Hydromorphone HCl (Hydromorphone 1 Mg/1 Ml Inj) 0.5 mg IV Q3H PRN PRN Reason: Pain , Severe (7-10) Hydrophilic Ointment (Lip Therapy Vaseline) 1 applic TP Q2HR PRN PRN Reason: Dry Lips Fentanyl Citrate (Fentanyl Drip Premix) 2,000 mcg in 100 mls @ 13.608 mls/hr IV TITR BAO; Protocol Last Admin: 11/12/21 15:53 Dose: 2 mcg/kg/hr, 27.216 mls/hr NORepinephrine/NS 8 MG-250 ML (Norepinephrine/Ns 8 Mg-250 Ml (Double Conc)) 8 mg in 250 mls @ 3.75 mls/hr IV TITRATE BAO; Protocol Last Titration: 11/12/21 08:30 Dose: 0 mcg/min, 0 mls/hr Sodium Chloride (Nacl 0.45% 1000 Ml) 1,000 mls @ 100 mls/hr IV DIRECT BAO Dextrose/Sodium Chloride (D5ns) 1,000 mls @ 50 mls/hr IV DIRECT BAO Last Admin: 11/12/21 03:28 Dose: 50 mls/hr Insulin Human Lispro (Insulin Lispro 100 Unit/Ml) 0 unit SUB-Q Q6HR BAO; Protocol Last Admin: 11/12/21 17:25 Dose: Not Given Morphine Sulfate (Morphine 2 Mg/1 Ml Inj) 2 mg IV Q4H PRN PRN Reason: Pain, Moderate (4-6) Multi-Ingred Cream/Lotion/Oil/Oint (Mineral Oil/Petrolatum, White Ophth Oint 3.5 Gm) 1 applic OU Q4HR PRN PRN Reason: Dry Eye(s) Ondansetron HCl (Ondansetron 4 Mg/2 Ml Inj) 4 mg IV Q8H PRN PRN Reason: Nausea And Vomiting Sodium Chloride (Sodium Chloride 0.9% 10 Ml Flush Syringe) 10 ml IV BID BAO Last Admin: 11/12/21 11:06 Dose: 10 ml Sodium Chloride (Sodium Chloride 0.9% 10 Ml Flush Syringe) 10 ml IV PRN PRN PRN Reason: LINE FLUSH Review of Systems ROS unobtainable: due to endotracheal tube Physical Examination Vital Signs Temp Pulse Resp BP Pulse Ox 98.2 F 91 H 18 103/78 100 11/11/21 18:19 11/11/21 18:19 11/11/21 18:19 11/11/21 18:19 11/11/21 18:19 General appearance: other (intubated/sedated) HEENT: Positive: Normocephaly Neck: Negative: JVD/HJR Cardiac: Positive: Reg Rate and Rhythm, Other (distant heart sounds) Lungs: Positive: Ventilated Respirations Neuro: Positive: Other (intubated) Abdomen: Positive: Soft Skin: Negative: Rash Extremities: Present: edema Results 11/12/21 06:55 11/12/21 16:46 Cardiac Enzymes 11/11/21 Range/Units 19:49 AST 10 (5-40) units/L Lipids 11/11/21 Range/Units 19:49 Triglycerides 79 (2-149) mg/dL Cholesterol 146 (50-199) mg/dL HDL Cholesterol 43 (40-59) mg/dL Cholesterol/HDL Ratio 3.39 % CBC 11/11/21 11/12/21 Range/Units 19:49 06:55 WBC 11.5 H 20.5 H (4.5-11.0) K/mm3 RBC 3.73 3.54 L (3.65-5.03) M/mm3 Hgb 10.1 L 9.4 L (11.8-15.2) gm/dl Hct 34.8 L 32.3 L (35.5-45.6) % Plt Count 255 261 (140-440) K/mm3 Lymph # (Auto) 1.1 L (1.2-5.4) K/mm3 [place] # (Auto) 1.0 H (0.0-0.8) K/mm3 Eos # (Auto) 0.1 (0.0-0.4) K/mm3 Baso # (Auto) 0.1 (0.0-0.1) K/mm3 Comprehensive Metabolic Panel 11/11/21 11/12/21 11/12/21 Range/Units 19:49 06:55 16:46 Sodium 140 143 146 H (137-145) mmol/L Potassium 7.6 H* 5.5 H D 5.0 (3.6-5.0) mmol/L Chloride 107.8 H 107.1 H 108.2 H (98-107) mmol/L Carbon Dioxide 13 L 19 L 21 L (22-30) mmol/L BUN 107 H 78 H 66 H (9-20) mg/dL Creatinine 13.8 H 9.4 H 9.8 H (0.8-1.3) mg/dL Glucose 96 119 H 125 H (75-100) mg/dL Calcium 7.5 L 8.1 L 7.8 L (8.4-10.2) mg/dL AST 10 (5-40) units/L ALT 7 (7-56) units/L Alkaline Phosphatase 111 (35-129) units/L Total Protein 9.1 H (6.3-8.2) g/dL Albumin 3.0 L (3.9-5) g/dL - Imaging and Cardiology Echo: pending EKG: report reviewed, image reviewed - EKG Interpretation EKG: no acute changes EKG interpretations - EKG Sinus rhythms and dysrhythmias: sinus rhythm Assessment and Plan Acute Encephalopathy Acute Respiratory Failure Acute Renal Failure (s/p Vascath placement & emergent HD 11/11) Hyperkalemia (resolved) Anemia S/p Shock H/o HTN DM Morbid Obesity/Bedbound ?OHS/AYAN Chronic Lymphedema Plan: Echo pending. Trend serial troponins. CE elevation likely represents type 2 MO in the setting of acute respiratory failure/acute renal failure/shock. Continue present management per Primary teams. Ischemic evaluation may be considered when patient is clinically stable. Patient seen in conjunction with Dr. Avila, who agrees with the assessment and plan of care. - Patient Problems (1) Acute respiratory failure Current Visit: Yes Status: Acute Qualifiers: Respiratory failure complication: hypoxia Qualified Code(s): J96.01 - Acute respiratory failure with hypoxia (2) Acute renal failure (ARF) Current Visit: Yes Status: Acute Qualifiers: Qualified Code(s): N17.9 - Acute kidney failure, unspecified (3) Type 2 MO (myocardial infarction) Current Visit: Yes Status: Acute
[2021-11-12] MEDS: DOCUSATE SODIUM 100 MG/10 ML ORAL LIQD PO SCH (21:55)
[2021-11-12] MEDS ORDERED: cefTRIAXone/NS 2 GM/100 ML 2 GM/100 ML BAG IV SCH (22:00)
[2021-11-13] MEDS: INSULIN LISPRO 100 UNIT/ML SUB-Q SCH ×3 (02:27→14:52)
[2021-11-13] MEDS: fentaNYL DRIP Premix 2,000 MCG/100 ML BAG IV SCH ×3 (03:23→19:55)
[2021-11-13 05:02] LABS: ABG Base Excess -3.9 mmol/L (-2.0-3.0); ABG HCO3 22.8 mmol/L (20.0-26.0); ABG Methemoglobin 0.5 % (0.0-1.5); ABG Oxygen Saturation 96.6 % (95.0-99.0); ABG PCO2 50.3 mm Hg; ABG PH 7.274 pH Units (7.350-7.450); ABG PO2 93.2 mm Hg (80.0-90.0)
[2021-11-13 05:13] LABS: Calcium 7.7 mg/dL (8.4-10.2)
[2021-11-13] MEDS ORDERED: ETOMIDATE 20 MG/10 ML INJ IV ONE (05:25)
[2021-11-13] MEDS ORDERED: ROCURONIUM 50 MG/5 ML INJ IV ONE (05:25)
[2021-11-13 05:29] LABS: Hematocrit 27.5 % (35.5-45.6); Hemoglobin 8.4 gm/dl (11.8-15.2); Mean Corpuscular HGB Conc 30 % (32-34); Mean Corpuscular Volume 89 fl (84-94); Platelet Count 254 K/mm3 (140-440); Red Blood Count 3.09 M/mm3 (3.65-5.03); Red Cell Distribution Width 19.6 % (13.2-15.2)
--- NOTE | 2021-11-13 06:03 | XRay Report ---
CHEST 1 VIEW INDICATION / CLINICAL INFORMATION: follow up respiratory failure. COMPARISON: Chest x-ray 11/12/2021 FINDINGS: SUPPORT DEVICES: Stable, satisfactory device positioning. HEART / MEDIASTINUM: No significant interval change. LUNGS / PLEURA: Diffuse bilateral interstitial and airspace opacities suggest minimal change. No pneu mothorax. ADDITIONAL FINDINGS: No significant additional findings. IMPRESSION: 1. Persistent diffuse bilateral interstitial and airspace opacities with minimal interval change. Sta ble tubes and lines. Signer Name: Rubén Dc II, MD Signed: 11/13/2021 5:59 AM Workstation Name: [id number]
[2021-11-13] MEDS ORDERED: MAGNESIUM SULFATE 2 GM/50 ML BAG IV ONE (07:22)
[2021-11-13] MEDS: ASPIRIN 325 MG TAB PO SCH (09:04)
[2021-11-13] MEDS: DOCUSATE SODIUM 100 MG/10 ML ORAL LIQD PO SCH ×2 (09:04→22:39)
[2021-11-13] MEDS: HEPARIN 5,000 UNIT/1 ML VIAL SUB-Q SCH ×2 (09:05→22:39)
[2021-11-13] MEDS: FAMOTIDINE 20 MG TAB PO SCH (09:05)
--- NOTE | 2021-11-13 09:17 | Progress Note ---
Assessment and Plan 56 y/o morbidly obese male with acute respiratory failure, requiring intubation and now in acute renal failure and in need of HD 11/13/21: HD per renal. No PSV trials today. Wean PEEP after HD. Guarded prognosis. 1. Obtain ABG 2. Place Iglesias catheter 3. Wean Pressors for maps greater than 65 4. Insulin, D50 for Hyperkalemia, and HD per renal 5. Stopped scheduled duonebs 6. Stopped abx 7. Obtain BNP with morning labs 8. Guarded prognosis. CCT 31 minutes. Subjective Date of service: 11/13/21 Interval history: awake and alert. Had HD yesterday and getting HD again today. Very anxious. Down to 45% but still on 10 of PEEP, CXR shows pulmonary edema Objective Vital Signs - 12hr 11/12/21 11/12/21 11/12/21 21:20 21:31 21:41 Temperature Pulse Rate 70 75 67 Pulse Rate [ From Monitor] Respiratory 12 17 22 Rate Blood Pressure 99/50 105/57 99/50 O2 Sat by Pulse 100 99 99 Oximetry 11/12/21 11/12/21 11/12/21 21:51 22:00 22:11 Temperature Pulse Rate 66 71 63 Pulse Rate [ From Monitor] Respiratory 20 20 20 Rate Blood Pressure 92/51 102/54 102/54 O2 Sat by Pulse 99 99 99 Oximetry 11/12/21 11/12/21 11/12/21 22:21 22:31 22:41 Temperature Pulse Rate 64 66 63 Pulse Rate [ From Monitor] Respiratory 20 21 20 Rate Blood Pressure 90/43 90/43 90/43 O2 Sat by Pulse 100 99 99 Oximetry 11/12/21 11/12/21 11/12/21 22:51 23:01 23:09 Temperature Pulse Rate 71 86 69 Pulse Rate [ From Monitor] Respiratory 21 12 20 Rate Blood Pressure 90/43 90/43 84/62 O2 Sat by Pulse 100 99 95 Oximetry 11/12/21 11/12/21 11/12/21 23:11 23:21 23:31 Temperature Pulse Rate 67 73 72 Pulse Rate [ From Monitor] Respiratory 20 20 20 Rate Blood Pressure 84/62 84/62 84/62 O2 Sat by Pulse 95 97 98 Oximetry 11/12/21 11/12/21 11/13/21 23:41 23:51 00:00 Temperature 98.0 F Pulse Rate 68 72 74 Pulse Rate [ 64 From Monitor] Respiratory 19 20 17 Rate Blood Pressure 84/62 101/59 105/60 O2 Sat by Pulse 98 99 98 Oximetry 11/13/21 11/13/21 11/13/21 00:11 00:20 00:21 Temperature Pulse Rate 64 72 72 Pulse Rate [ From Monitor] Respiratory 20 15 Rate Blood Pressure 105/60 101/53 91/57 O2 Sat by Pulse 99 99 97 Oximetry 11/13/21 11/13/21 11/13/21 00:30 00:41 00:51 Temperature Pulse Rate 65 71 70 Pulse Rate [ From Monitor] Respiratory 16 20 20 Rate Blood Pressure 101/53 101/53 107/63 O2 Sat by Pulse 98 98 97 Oximetry 11/13/21 11/13/21 11/13/21 01:00 01:11 01:21 Temperature Pulse Rate 73 75 73 Pulse Rate [ From Monitor] Respiratory 19 23 20 Rate Blood Pressure 110/58 110/58 123/69 O2 Sat by Pulse 98 99 98 Oximetry 11/13/21 11/13/21 11/13/21 01:31 01:41 01:51 Temperature Pulse Rate 74 75 71 Pulse Rate [ From Monitor] Respiratory 18 19 21 Rate Blood Pressure 123/69 107/52 106/56 O2 Sat by Pulse Oximetry 11/13/21 11/13/21 11/13/21 02:00 02:11 02:21 Temperature Pulse Rate 68 67 73 Pulse Rate [ From Monitor] Respiratory 20 20 21 Rate Blood Pressure 111/56 111/56 111/57 O2 Sat by Pulse 94 95 Oximetry 11/13/21 11/13/21 11/13/21 02:30 02:41 02:51 Temperature Pulse Rate 74 74 79 Pulse Rate [ From Monitor] Respiratory 12 20 11 L Rate Blood Pressure 100/56 100/56 96/63 O2 Sat by Pulse 95 94 95 Oximetry 11/13/21 11/13/21 11/13/21 03:00 03:11 03:21 Temperature Pulse Rate 68 103 H 104 H Pulse Rate [ From Monitor] Respiratory 20 18 20 Rate Blood Pressure 99/54 99/54 128/84 O2 Sat by Pulse 95 94 92 Oximetry 11/13/21 11/13/21 11/13/21 03:30 03:41 03:51 Temperature Pulse Rate 94 H 85 76 Pulse Rate [ From Monitor] Respiratory 17 19 20 Rate Blood Pressure 137/83 137/83 107/61 O2 Sat by Pulse 92 93 89 Oximetry 11/13/21 11/13/21 11/13/21 04:00 04:01 04:11 Temperature 97.3 F L Pulse Rate 75 80 71 Pulse Rate [ 75 From Monitor] Respiratory 20 19 20 Rate Blood Pressure 113/80 107/61 122/69 O2 Sat by Pulse 99 94 92 Oximetry 11/13/21 11/13/21 11/13/21 04:21 04:30 04:41 Temperature Pulse Rate 71 90 77 Pulse Rate [ From Monitor] Respiratory 20 15 21 Rate Blood Pressure 106/59 113/80 113/80 O2 Sat by Pulse 92 92 91 Oximetry 11/13/21 11/13/21 11/13/21 04:51 05:00 05:11 Temperature Pulse Rate 72 78 73 Pulse Rate [ From Monitor] Respiratory 20 18 20 Rate Blood Pressure 121/73 121/77 121/77 O2 Sat by Pulse 93 94 93 Oximetry 11/13/21 11/13/21 11/13/21 05:21 05:30 05:41 Temperature Pulse Rate 72 90 81 Pulse Rate [ From Monitor] Respiratory 20 20 20 Rate Blood Pressure 117/62 133/72 133/72 O2 Sat by Pulse 94 94 93 Oximetry 11/13/21 11/13/21 11/13/21 05:51 06:01 06:11 Temperature Pulse Rate 109 H 91 H 85 Pulse Rate [ From Monitor] Respiratory 15 20 20 Rate Blood Pressure 127/82 147/78 147/78 O2 Sat by Pulse 94 90 91 Oximetry 11/13/21 11/13/21 11/13/21 06:21 06:30 06:41 Temperature Pulse Rate 79 75 77 Pulse Rate [ From Monitor] Respiratory 20 20 20 Rate Blood Pressure 124/71 101/50 101/50 O2 Sat by Pulse 91 92 94 Oximetry 11/13/21 11/13/21 11/13/21 06:51 07:00 07:11 Temperature Pulse Rate 83 83 76 Pulse Rate [ From Monitor] Respiratory 18 20 19 Rate Blood Pressure 116/60 149/81 149/81 O2 Sat by Pulse 95 95 93 Oximetry 11/13/21 11/13/21 11/13/21 07:21 07:30 07:37 Temperature 99.7 F H Pulse Rate 117 H 84 Pulse Rate [ From Monitor] Respiratory 19 20 Rate Blood Pressure 119/75 130/72 O2 Sat by Pulse 92 92 Oximetry 11/13/21 11/13/21 11/13/21 07:41 07:51 08:00 Temperature Pulse Rate 78 81 93 H Pulse Rate [ From Monitor] Respiratory 20 20 20 Rate Blood Pressure 130/72 119/63 183/106 O2 Sat by Pulse 93 94 95 Oximetry 11/13/21 08:11 Temperature Pulse Rate 77 Pulse Rate [ From Monitor] Respiratory 20 Rate Blood Pressure 129/72 O2 Sat by Pulse 95 Oximetry Constitutional: comatose Eyes: non-icteric ENT: other (orally intubated and sedated) Neck: supple, other (large in circumference) Effort: normal Ascultation: Bilateral: diminished breath sounds Cardiovascular: regular rate and rhythm Gastrointestinal: normoactive bowel sounds Extremities: edema, anasarca Neurologic: unable to assess CBC and BMP: 11/13/21 04:00 11/13/21 04:00 ABG, PT/INR, D-dimer: ABG ABG pH 7.274 pH Units (7.350-7.450) L 11/13/21 04:00 ABG pCO2 50.3 mm Hg 11/13/21 04:00 ABG pO2 93.2 mm Hg (80.0-90.0) H 11/13/21 04:00 ABG O2 Saturation 96.6 % (95.0-99.0) 11/13/21 04:00 Abnormal lab findings: Abnormal Labs 11/11/21 11/11/21 11/11/21 19:49 19:49 23:29 WBC 11.5 H RBC Hgb 10.1 L Hct 34.8 L MCH 27 L MCHC 29 L RDW 20.1 H Lymph % (Auto) 10.0 L Parmer % (Auto) 8.8 H Lymph # (Auto) 1.1 L Parmer # (Auto) 1.0 H Seg Neutrophils % 79.8 H Seg Neuts % (Manual) Lymphocytes % (Manual) Seg Neutrophils # 9.2 H Seg Neutrophils # Man Lymphocytes # (Manual) ABG pH ABG pO2 ABG HCO3 ABG O2 Saturation ABG Base Excess ABG Hemoglobin Sodium Potassium 7.6 H* Chloride 107.8 H Carbon Dioxide 13 L BUN 107 H Creatinine 13.8 H Glucose POC Glucose Calcium 7.5 L Phosphorus Magnesium Iron TIBC Total Creatine Kinase 268 H Troponin T 0.324 H* NT-Pro-B Natriuret Pep Total Protein 9.1 H Albumin 3.0 L PTH Intact Urine WBC (Auto) Urine Creatinine 11/11/21 11/11/21 11/12/21 23:29 23:29 02:20 WBC RBC Hgb Hct MCH MCHC RDW Lymph % (Auto) Parmer % (Auto) Lymph # (Auto) Parmer # (Auto) Seg Neutrophils % Seg Neuts % (Manual) Lymphocytes % (Manual) Seg Neutrophils # Seg Neutrophils # Man Lymphocytes # (Manual) ABG pH ABG pO2 ABG HCO3 ABG O2 Saturation ABG Base Excess ABG Hemoglobin Sodium Potassium Chloride Carbon Dioxide BUN Creatinine Glucose POC Glucose Calcium Phosphorus Magnesium Iron 24 L TIBC 157 L Total Creatine Kinase Troponin T NT-Pro-B Natriuret Pep Total Protein Albumin PTH Intact 1174 H Urine WBC (Auto) Urine Creatinine 189.3 H 11/12/21 11/12/21 11/12/21 02:20 02:28 06:55 WBC 20.5 H RBC 3.54 L Hgb 9.4 L Hct 32.3 L MCH 27 L MCHC 29 L RDW 20.0 H Lymph % (Auto) Parmer % (Auto) Lymph # (Auto) Parmer # (Auto) Seg Neutrophils % Seg Neuts % (Manual) 89.0 H Lymphocytes % (Manual) 0 L Seg Neutrophils # Seg Neutrophils # Man 18.2 H Lymphocytes # (Manual) 0.0 L ABG pH 7.172 L* ABG pO2 100.6 H ABG HCO3 17.4 L ABG O2 Saturation ABG Base Excess -10.6 L ABG Hemoglobin 9.4 L Sodium Potassium Chloride Carbon Dioxide BUN Creatinine Glucose POC Glucose Calcium Phosphorus Magnesium Iron TIBC Total Creatine Kinase Troponin T NT-Pro-B Natriuret Pep Total Protein Albumin PTH Intact Urine WBC (Auto) 12.0 H Urine Creatinine 11/12/21 11/12/21 11/12/21 06:55 09:10 12:01 WBC RBC Hgb Hct MCH MCHC RDW Lymph % (Auto) Parmer % (Auto) Lymph # (Auto) Parmer # (Auto) Seg Neutrophils % Seg Neuts % (Manual) Lymphocytes % (Manual) Seg Neutrophils # Seg Neutrophils # Man Lymphocytes # (Manual) ABG pH 7.296 L ABG pO2 237.3 H ABG HCO3 ABG O2 Saturation 99.3 H ABG Base Excess -6.0 L ABG Hemoglobin 8.8 L Sodium Potassium 5.5 H D Chloride 107.1 H Carbon Dioxide 19 L BUN 78 H Creatinine 9.4 H Glucose 119 H POC Glucose 106 H Calcium 8.1 L Phosphorus Magnesium Iron TIBC Total Creatine Kinase Troponin T NT-Pro-B Natriuret Pep Total Protein Albumin PTH Intact Urine WBC (Auto) Urine Creatinine 11/12/21 11/12/21 11/12/21 16:46 16:46 22:30 WBC RBC Hgb Hct MCH MCHC RDW Lymph % (Auto) Parmer % (Auto) Lymph # (Auto) Parmer # (Auto) Seg Neutrophils % Seg Neuts % (Manual) Lymphocytes % (Manual) Seg Neutrophils # Seg Neutrophils # Man Lymphocytes # (Manual) ABG pH ABG pO2 ABG HCO3 ABG O2 Saturation ABG Base Excess ABG Hemoglobin Sodium 146 H Potassium Chloride 108.2 H Carbon Dioxide 21 L BUN 66 H Creatinine 9.8 H Glucose 125 H POC Glucose Calcium 7.8 L Phosphorus Magnesium Iron TIBC Total Creatine Kinase Troponin T 0.319 H* 0.313 H* NT-Pro-B Natriuret Pep Total Protein Albumin PTH Intact Urine WBC (Auto) Urine Creatinine 11/12/21 11/12/21 11/13/21 23:18 Unknown 04:00 WBC 17.2 H RBC 3.09 L Hgb 8.4 L Hct 27.5 L MCH 27 L MCHC 30 L RDW 19.6 H Lymph % (Auto) Parmer % (Auto) Lymph # (Auto) Parmer # (Auto) Seg Neutrophils % Seg Neuts % (Manual) Lymphocytes % (Manual) Seg Neutrophils # Seg Neutrophils # Man Lymphocytes # (Manual) ABG pH ABG pO2 ABG HCO3 ABG O2 Saturation ABG Base Excess ABG Hemoglobin Sodium Potassium Chloride Carbon Dioxide BUN Creatinine Glucose POC Glucose 120 H Calcium Phosphorus Magnesium Iron TIBC Total Creatine Kinase Troponin T NT-Pro-B Natriuret Pep 3674 H Total Protein Albumin PTH Intact Urine WBC (Auto) Urine Creatinine 11/13/21 11/13/21 04:00 04:00 WBC RBC Hgb Hct MCH MCHC RDW Lymph % (Auto) Parmer % (Auto) Lymph # (Auto) Parmer # (Auto) Seg Neutrophils % Seg Neuts % (Manual) Lymphocytes % (Manual) Seg Neutrophils # Seg Neutrophils # Man Lymphocytes # (Manual) ABG pH 7.274 L ABG pO2 93.2 H ABG HCO3 ABG O2 Saturation ABG Base Excess -3.9 L ABG Hemoglobin 8.2 L Sodium Potassium Chloride Carbon Dioxide 21 L BUN 71 H Creatinine 9.9 H Glucose 128 H POC Glucose Calcium 7.7 L Phosphorus 5.10 H Magnesium 1.60 L Iron TIBC Total Creatine Kinase Troponin T NT-Pro-B Natriuret Pep Total Protein Albumin PTH Intact Urine WBC (Auto) Urine Creatinine
--- NOTE | 2021-11-13 10:55 | Progress Note ---
Assessment and Plan (1) Acute respiratory failure (2) Pneumonia (3) Hypoxia (4) KD (acute kidney injury) on top of CKD (5) Hyperkalemia (6) Diabetes (7) Elevated troponin (8) Hypertension (9) Obesity (10)Acidosis -No BL Cr available but likely has CKD -R&B of [employer] d/w family on admission who agreed to and consented for dialysis. -s/p Vascath by ICU. 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 Initiated on HD yesterday. Objective - Exam Narrative Exam: General appearance: comatose Eyes: non-icteric ENT: other (orally intubated and sedated) Neck: supple, other (large in circumference) Effort: normal Ascultation: Bilateral: diminished breath sounds Cardiovascular: regular rate and rhythm Gastrointestinal: normoactive bowel sounds Extremities: edema, anasarca unable to assess - Vital Signs Vital signs: Vital Signs - 12hr 11/12/21 11/12/21 11/12/21 23:01 23:09 23:11 Temperature Pulse Rate 86 69 67 Pulse Rate [ From Monitor] Respiratory 12 20 20 Rate Blood Pressure 90/43 84/62 84/62 O2 Sat by Pulse 99 95 95 Oximetry 11/12/21 11/12/21 11/12/21 23:21 23:31 23:41 Temperature Pulse Rate 73 72 68 Pulse Rate [ From Monitor] Respiratory 20 20 19 Rate Blood Pressure 84/62 84/62 84/62 O2 Sat by Pulse 97 98 98 Oximetry 11/12/21 11/13/21 11/13/21 23:51 00:00 00:11 Temperature 98.0 F Pulse Rate 72 74 64 Pulse Rate [ 64 From Monitor] Respiratory 20 17 20 Rate Blood Pressure 101/59 105/60 105/60 O2 Sat by Pulse 99 98 99 Oximetry 11/13/21 11/13/21 11/13/21 00:20 00:21 00:30 Temperature Pulse Rate 72 72 65 Pulse Rate [ From Monitor] Respiratory 15 16 Rate Blood Pressure 101/53 91/57 101/53 O2 Sat by Pulse 99 97 98 Oximetry 11/13/21 11/13/21 11/13/21 00:41 00:51 01:00 Temperature Pulse Rate 71 70 73 Pulse Rate [ From Monitor] Respiratory 20 20 19 Rate Blood Pressure 101/53 107/63 110/58 O2 Sat by Pulse 98 97 98 Oximetry 11/13/21 11/13/21 11/13/21 01:11 01:21 01:31 Temperature Pulse Rate 75 73 74 Pulse Rate [ From Monitor] Respiratory 23 20 18 Rate Blood Pressure 110/58 123/69 123/69 O2 Sat by Pulse 99 98 Oximetry 11/13/21 11/13/21 11/13/21 01:41 01:51 02:00 Temperature Pulse Rate 75 71 68 Pulse Rate [ From Monitor] Respiratory 19 21 20 Rate Blood Pressure 107/52 106/56 111/56 O2 Sat by Pulse Oximetry 11/13/21 11/13/21 11/13/21 02:11 02:21 02:30 Temperature Pulse Rate 67 73 74 Pulse Rate [ From Monitor] Respiratory 20 21 12 Rate Blood Pressure 111/56 111/57 100/56 O2 Sat by Pulse 94 95 95 Oximetry 11/13/21 11/13/21 11/13/21 02:41 02:51 03:00 Temperature Pulse Rate 74 79 68 Pulse Rate [ From Monitor] Respiratory 20 11 L 20 Rate Blood Pressure 100/56 96/63 99/54 O2 Sat by Pulse 94 95 95 Oximetry 11/13/21 11/13/21 11/13/21 03:11 03:21 03:30 Temperature Pulse Rate 103 H 104 H 94 H Pulse Rate [ From Monitor] Respiratory 18 20 17 Rate Blood Pressure 99/54 128/84 137/83 O2 Sat by Pulse 94 92 92 Oximetry 11/13/21 11/13/21 11/13/21 03:41 03:51 04:00 Temperature 97.3 F L Pulse Rate 85 76 75 Pulse Rate [ 75 From Monitor] Respiratory 19 20 20 Rate Blood Pressure 137/83 107/61 113/80 O2 Sat by Pulse 93 89 99 Oximetry 11/13/21 11/13/21 11/13/21 04:01 04:11 04:21 Temperature Pulse Rate 80 71 71 Pulse Rate [ From Monitor] Respiratory 19 20 20 Rate Blood Pressure 107/61 122/69 106/59 O2 Sat by Pulse 94 92 92 Oximetry 11/13/21 11/13/21 11/13/21 04:30 04:41 04:51 Temperature Pulse Rate 90 77 72 Pulse Rate [ From Monitor] Respiratory 15 21 20 Rate Blood Pressure 113/80 113/80 121/73 O2 Sat by Pulse 92 91 93 Oximetry 11/13/21 11/13/21 11/13/21 05:00 05:11 05:21 Temperature Pulse Rate 78 73 72 Pulse Rate [ From Monitor] Respiratory 18 20 20 Rate Blood Pressure 121/77 121/77 117/62 O2 Sat by Pulse 94 93 94 Oximetry 11/13/21 11/13/21 11/13/21 05:30 05:41 05:51 Temperature Pulse Rate 90 81 109 H Pulse Rate [ From Monitor] Respiratory 20 20 15 Rate Blood Pressure 133/72 133/72 127/82 O2 Sat by Pulse 94 93 94 Oximetry 11/13/21 11/13/21 11/13/21 06:01 06:11 06:21 Temperature Pulse Rate 91 H 85 79 Pulse Rate [ From Monitor] Respiratory 20 20 20 Rate Blood Pressure 147/78 147/78 124/71 O2 Sat by Pulse 90 91 91 Oximetry 11/13/21 11/13/21 11/13/21 06:30 06:41 06:51 Temperature Pulse Rate 75 77 83 Pulse Rate [ From Monitor] Respiratory 20 20 18 Rate Blood Pressure 101/50 101/50 116/60 O2 Sat by Pulse 92 94 95 Oximetry 11/13/21 11/13/21 11/13/21 07:00 07:11 07:21 Temperature Pulse Rate 83 76 117 H Pulse Rate [ From Monitor] Respiratory 20 19 19 Rate Blood Pressure 149/81 149/81 119/75 O2 Sat by Pulse 95 93 92 Oximetry 11/13/21 11/13/21 11/13/21 07:30 07:37 07:41 Temperature 99.7 F H Pulse Rate 84 78 Pulse Rate [ From Monitor] Respiratory 20 20 Rate Blood Pressure 130/72 130/72 O2 Sat by Pulse 92 93 Oximetry 11/13/21 11/13/21 11/13/21 07:51 08:00 08:11 Temperature Pulse Rate 81 93 H 77 Pulse Rate [ From Monitor] Respiratory 20 20 20 Rate Blood Pressure 119/63 183/106 129/72 O2 Sat by Pulse 94 95 95 Oximetry - Lab 11/13/21 04:00 11/13/21 04:00 Most recent lab results ABG pH 7.274 pH Units (7.350-7.450) L 11/13/21 04:00 ABG pCO2 50.3 mm Hg 11/13/21 04:00 ABG pO2 93.2 mm Hg (80.0-90.0) H 11/13/21 04:00 ABG HCO3 22.8 mmol/L (20.0-26.0) 11/13/21 04:00 ABG O2 Saturation 96.6 % (95.0-99.0) 11/13/21 04:00 Calcium 7.7 mg/dL (8.4-10.2) L 11/13/21 04:00 Phosphorus 5.10 mg/dL (2.5-4.5) H 11/13/21 04:00 Magnesium 1.60 mg/dL (1.7-2.3) L 11/13/21 04:00 Urine Creatinine 189.3 mg/dL (0.1-20.0) H 11/12/21 02:20 Urine Sodium 30 mmol/L 11/12/21 02:20 Medications & Allergies - Medications Allergies/Adverse Reactions: Allergies No Known Allergies Allergy (Verified 11/11/21 20:58) Active Medications: Generic Name Dose Route Start Last Admin Trade Name Freq PRN Reason Stop Dose Admin Acetaminophen 650 mg 11/11/21 22:40 Acetaminophen 325 Mg Tab PO Q4H PRN Pain MILD(1-3)/Fever >100.5/SOTO Albuterol 2.5 mg 11/11/21 22:40 Albuterol 2.5 Mg/3 Ml Nebu IH Q3HRT PRN Shortness Of Breath Aspirin 325 mg 11/12/21 10:00 11/13/21 09:04 Aspirin 325 Mg Tab PO 325 mg QDAY BAO Administration Atorvastatin Calcium 40 mg 11/12/21 22:00 11/12/21 21:55 Atorvastatin 40 Mg Tab PO 40 mg QHS BAO Administration Dextrose 0 ml 11/11/21 23:03 Dextrose 10% *Hypoglycemia IV PRN PRN Hypoglycemia Docusate Sodium 100 mg 11/12/21 22:00 11/13/21 09:04 Docusate Sodium 100 Mg/10 Ml Oral Liqd PO 100 mg BID BAO Administration Famotidine 20 mg 11/13/21 10:00 11/13/21 09:05 Famotidine 20 Mg Tab PO 20 mg QDAY BAO Administration Fentanyl 50 mcg 11/11/21 20:56 11/12/21 00:12 Fentanyl 100 Mcg/2 Ml Inj IV 50 mcg Q10MIN PRN Administration ANALGESIA Heparin Sodium (Porcine) 5,000 unit 11/12/21 10:00 11/13/21 09:05 Heparin 5,000 Unit/1 Ml Vial SUB-Q 5,000 unit Q12HR BAO Administration Hydromorphone HCl 0.5 mg 11/11/21 22:40 Hydromorphone 1 Mg/1 Ml Inj IV Q3H PRN Pain , Severe (7-10) Hydrophilic Ointment 1 applic 11/11/21 20:56 Lip Therapy Vaseline TP Q2HR PRN Dry Lips Fentanyl Citrate 2,000 mcg in 100 mls @ 13.608 mls/hr 11/11/21 21:00 11/13/21 10:24 Fentanyl Drip Premix IV 2 mcg/kg/hr TITR BAO 27.216 mls/hr Titration Protocol 1 MCG/KG/HR NORepinephrine/NS 8 MG-250 ML 8 mg in 250 mls @ 3.75 mls/hr 11/11/21 23:00 11/13/21 10:24 Norepinephrine/Ns 8 Mg-250 Ml (Double Conc) IV 2 mcg/min TITRATE BAO 3.75 mls/hr Titration Protocol 2 MCG/MIN Sodium Chloride 1,000 mls @ 100 mls/hr 11/11/21 23:00 Nacl 0.45% 1000 Ml IV DIRECT BAO Dextrose/Sodium Chloride 1,000 mls @ 50 mls/hr 11/12/21 03:00 11/13/21 08:49 D5ns IV 0 mls/hr DIRECT BAO Infusion Propofol 1,000 mg in 100 mls @ 8.166 mls/hr 11/13/21 09:00 11/13/21 09:15 Diprivan 10 Mg/Ml IV 5 mcg/kg/min TITR BAO 8.166 mls/hr Administration Protocol 5 MCG/KG/MIN Insulin Human Lispro 0 unit 11/12/21 00:00 11/13/21 07:18 Insulin Lispro 100 Unit/Ml SUB-Q Not Given Q6HR BAO Protocol Morphine Sulfate 2 mg 11/11/21 22:40 Morphine 2 Mg/1 Ml Inj IV Q4H PRN Pain, Moderate (4-6) Multi-Ingred Cream/Lotion/Oil/Oint 1 applic 11/11/21 20:56 Mineral Oil/Petrolatum, White Ophth Oint 3.5 Gm OU Q4HR PRN Dry Eye(s) Ondansetron HCl 4 mg 11/11/21 22:40 Ondansetron 4 Mg/2 Ml Inj IV Q8H PRN Nausea And Vomiting Sodium Chloride 10 ml 11/12/21 10:00 11/13/21 09:05 Sodium Chloride 0.9% 10 Ml Flush Syringe IV 10 ml BID BAO Administration Sodium Chloride 10 ml 11/11/21 22:40 Sodium Chloride 0.9% 10 Ml Flush Syringe IV PRN PRN LINE FLUSH
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
[2021-11-14] MEDS: INSULIN LISPRO 100 UNIT/ML SUB-Q SCH ×4 (00:50→17:26)
--- NOTE | 2021-11-14 02:22 | XRay Report ---
CHEST 1 VIEW INDICATION / CLINICAL INFORMATION: follow up respiratory failure. COMPARISON: Chest x-ray 11/13/2021 FINDINGS: SUPPORT DEVICES: Stable, satisfactory device positioning. HEART / MEDIASTINUM: No significant interval change. Moderate cardiomegaly. LUNGS / PLEURA: Persistent lower lung opacities and interval partial clearing of the mid chest bilate rally. No pneumothorax. ADDITIONAL FINDINGS: No significant additional findings. IMPRESSION: 1. Minimal interval change in the chest. There may be minimal improvement in airspace opacities mid c hest. Persistent lower lung opacities are noted. Signer Name: Rubén Dc II, MD Signed: 11/14/2021 2:18 AM Workstation Name: [id number]
[2021-11-14] MEDS: NORepinephrine/NS 8 MG-250 ML 8 MG/250 ML INFUS..BTL IV SCH (02:49)
[2021-11-14] MEDS: fentaNYL DRIP Premix 2,000 MCG/100 ML BAG IV SCH ×5 (02:52→22:50)
[2021-11-14 04:27] LABS: ABG HCO3 24.7 mmol/L (20.0-26.0); ABG Methemoglobin 0.4 % (0.0-1.5); ABG Oxygen Saturation 97.9 % (95.0-99.0); ABG PH 7.409 pH Units (7.350-7.450); ABG PO2 107.1 mm Hg (80.0-90.0)
[2021-11-14 07:10] LABS: Hematocrit 26.6 % (35.5-45.6); Hemoglobin 8.1 gm/dl (11.8-15.2); Mean Corpuscular HGB Conc 30 % (32-34); Mean Corpuscular Volume 88 fl (84-94); Platelet Count 233 K/mm3 (140-440); Red Blood Count 3.03 M/mm3 (3.65-5.03); Red Cell Distribution Width 19.3 % (13.2-15.2)
[2021-11-14 07:30] LABS: Calcium 7.5 mg/dL (8.4-10.2)
[2021-11-14] MEDS ORDERED: POTASSIUM CHLORIDE 20 MEQ PACKET FEEDTUBE SCH (08:30)
[2021-11-14] MEDS ORDERED: MAGNESIUM SULFATE 2 GM/50 ML BAG IV SCH (08:30)
[2021-11-14] MEDS: ASPIRIN 325 MG TAB PO SCH (10:14)
[2021-11-14] MEDS: DOCUSATE SODIUM 100 MG/10 ML ORAL LIQD PO SCH ×2 (10:14→20:55)
[2021-11-14] MEDS: FAMOTIDINE 20 MG TAB PO SCH (10:14)
[2021-11-14] MEDS: HEPARIN 5,000 UNIT/1 ML VIAL SUB-Q SCH ×2 (10:17→22:00)
--- NOTE | 2021-11-14 11:37 | Progress Note ---
Assessment and Plan Patient is a 56-year-old morbidly obese bedbound male who was admitted with acute respiratory failure and acute renal failure on 11/12/21. Cardiology initially consulted for elevated troponin on admission. Assessment: Acute Encephalopathy Acute Respiratory Failure Acute Renal Failure (s/p Vascath placement & emergent HD 11/11) Hyperkalemia (resolved) Anemia S/p Shock H/o HTN DM Morbid Obesity/Bedbound ?OHS/AYAN Chronic Lymphedema NSTEMI- likely type II NH in the setting of acute respiratory failure/acute renal failure/shock. Cardiographics: EKG- 11/12/21-sinus rhythm, low voltage, extremity Chest x-ray- 11/14/21: Minimal interval change in the chest. There may be minimal improvement airspace opacities mid chest. Persistent low opacities are noted Echocardiogram- 11/11/21: Exam will be followed up by limited Optison contrast study on 11/14/2021. Left ventricle systolic function is normal. LVEF is > 70%. Mild concentric left ventricular hypertrophy. There is no pericardial effusion. Plan: Limited follow-up echocardiogram pending Continue present management per Primary teams. Ischemic evaluation unattainable at this time due to patient weight limitations. Monitor electrolytes and replace as needed per protocol. Patient seen in conjunction with Dr. Metcalf, who agrees with the assessment and plan of care. - Patient Problems (1) Acute renal failure (ARF) Current Visit: Yes Status: Acute Qualifiers: Qualified Code(s): N17.9 - Acute kidney failure, unspecified (2) Acute respiratory failure Current Visit: Yes Status: Acute Qualifiers: Respiratory failure complication: hypoxia Qualified Code(s): J96.01 - Acute respiratory failure with hypoxia (3) Elevated troponin Current Visit: Yes Status: Acute (4) Obesity Current Visit: Yes Status: Acute (5) SOB (shortness of breath) Current Visit: Yes Status: Acute (6) Type 2 NH (myocardial infarction) Current Visit: Yes Status: Acute Subjective Date of service: 11/14/21 Principal diagnosis: Acute respiratory failure, Interval history: Patient seen and examined this morning in the intensive care unit. Patient remains intubated, however is awake and following commands on the vent. Per [employer], CPAP trial will likely occur today. Patient in no apparent distress. Intake & Output 11/11/21 11/12/21 11/13/2128/22 23:59 23:59 23:59 23:59 Intake Total 352.145 5737.825 2562.060 1081.897 Output Total 35 0 28 Balance 261.038 2465.825 2562.060 1053.897 Weight 272.155 kg 272.2 kg 272.2 kg Height Height 5 ft 9 in Height 5 ft 9 in Height 5 ft 9 in Height 5 ft 9 in Weight Weight 272.2 kg Weight 272.2 kg Weight 272.2 kg Weight 272.155 kg Objective Vital Signs Temp Pulse Pulse Resp BP Pulse Ox Pulse Ox 11/14/21 11:31 98.5 F 11/14/21 11:00 74 17 178/99 96 11/14/21 10:45 79 20 161/100 95 11/14/21 10:30 71 22 142/81 93 11/14/21 10:16 71 17 149/84 94 11/14/21 10:00 67 22 132/67 95 11/14/21 09:45 70 22 124/76 100 11/14/21 09:41 72 0 L 124/76 95 11/14/21 09:30 64 22 120/61 97 11/14/21 09:15 68 22 124/65 96 11/14/21 09:00 67 22 120/60 93 11/14/21 08:45 63 22 120/65 96 11/14/21 08:30 65 22 121/61 96 11/14/21 08:15 68 22 114/60 96 11/14/21 08:00 62 65 22 103/45 95 11/14/21 07:46 70 22 113/58 95 11/14/21 07:30 72 22 131/84 94 11/14/21 07:15 66 22 140/78 95 11/14/21 07:08 99.2 F 11/14/21 07:00 71 22 136/77 95 11/14/21 06:00 68 22 133/75 96 11/14/21 05:00 73 22 125/80 98 11/14/21 04:00 59 L 61 22 104/57 98 11/14/21 03:43 98.1 F 11/14/21 03:00 58 L 22 108/63 98 11/14/21 02:00 51 L 22 95/56 98 11/14/21 01:00 58 L 22 106/56 97 11/14/21 00:00 67 61 22 116/59 96 11/13/21 23:52 97.8 F 11/13/21 23:23 73 16 136/113 95 11/13/21 23:00 76 20 131/61 95 11/13/21 22:01 69 22 107/58 93 11/13/21 21:00 67 22 125/68 96 11/13/21 20:58 67 0 L 125/68 96 11/13/21 20:00 67 62 22 108/56 97 11/13/21 19:49 97.4 F L 11/13/21 19:00 75 22 109/69 97 11/13/21 18:30 98 11/13/21 18:15 91 H 22 146/87 97 11/13/21 18:00 99.0 F 83 22 150/98 98 100 11/13/21 17:45 53 L 22 103/69 99 11/13/21 17:30 49 L 22 104/65 99 11/13/21 17:15 49 L 22 97/58 100 11/13/21 17:00 54 L 22 94/57 99 11/13/21 16:45 53 L 22 93/60 99 11/13/21 16:30 57 L 22 108/68 99 11/13/21 16:29 98.9 F 11/13/21 16:15 58 L 22 104/67 98 11/13/21 16:13 57 L 104/67 11/13/21 16:00 66 50 L 22 94/58 98 11/13/21 15:45 65 22 90/58 98 11/13/21 15:30 64 21 110/65 99 11/13/21 15:15 65 22 128/74 99 11/13/21 15:00 69 22 136/73 97 11/13/21 14:45 98.9 F 77 15 115/67 97 98 11/13/21 14:30 71 22 115/67 96 11/13/21 14:15 65 22 106/65 99 11/13/21 14:00 59 L 22 119/70 98 11/13/21 13:45 57 L 22 114/62 100 11/13/21 13:30 59 L 22 115/69 99 11/13/21 13:11 57 L 22 104/62 99 11/13/21 13:00 62 22 104/62 99 11/13/21 12:51 63 22 109/65 99 11/13/21 12:41 60 22 114/68 98 11/13/21 12:30 62 22 114/68 98 11/13/21 12:21 62 22 93/49 99 11/13/21 12:11 62 20 115/69 99 11/13/21 12:00 65 65 20 115/69 98 11/13/21 11:51 68 20 115/72 98 11/13/21 11:47 67 115/72 97 11/13/21 11:41 98.9 F 62 20 109/64 97 - Physical Examination General: No Apparent Distress HEENT: Positive: Normocephaly Cardiac: Positive: Reg Rate and Rhythm, S1/S2 Lungs: Positive: Rhonchi, Ventilated Respirations Neuro: Positive: Other (intubated but awake and alert. Following commands. ) Abdomen: Positive: Soft, Active Bowel Sounds Skin: Negative: Rash Extremities: Present: edema (Chronic lymphedema) - Labs and Meds CBC 11/14/21 Range/Units 06:30 WBC 11.2 H (4.5-11.0) K/mm3 RBC 3.03 L (3.65-5.03) M/mm3 Hgb 8.1 L (11.8-15.2) gm/dl Hct 26.6 L (35.5-45.6) % Plt Count 233 (140-440) K/mm3 Comprehensive Metabolic Panel 11/14/21 Range/Units 06:30 Sodium 141 (137-145) mmol/L Potassium 3.0 L D (3.6-5.0) mmol/L Chloride 103.9 (98-107) mmol/L Carbon Dioxide 22 (22-30) mmol/L BUN 41 H (9-20) mg/dL Creatinine 7.0 H (0.8-1.3) mg/dL Glucose 107 H (75-100) mg/dL Calcium 7.5 L (8.4-10.2) mg/dL - Imaging and Cardiology EKG: report reviewed, image reviewed Echo: report reviewed - Telemetry EKG Rhythm: Sinus Rhythm - EKG Sinus rhythms and dysrhythmias: sinus rhythm - Allied health notes Allied health notes reviewed: nursing
--- NOTE | 2021-11-14 12:06 | Progress Note ---
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, He may have progressive CKD -Intubated on Vent -Eval for HD need daily -Renally dose all meds Subjective Date of service: 11/14/21 Principal diagnosis: Acute respiratory failure, Interval history: patient is intubated, awake, follows simple commands Objective - Vital Signs Vital signs: Vital Signs - 12hr 11/14/21 11/14/21 11/14/21 01:00 02:00 03:00 Temperature Pulse Rate 58 L 51 L 58 L Pulse Rate [ From Monitor] Respiratory Rate Blood Pressure 106/56 95/56 108/63 O2 Sat by Pulse 97 98 98 Oximetry 11/14/21 11/14/21 11/14/21 03:43 04:00 05:00 Temperature 98.1 F Pulse Rate 59 L 73 Pulse Rate [ 61 From Monitor] Respiratory Rate Blood Pressure 104/57 125/80 O2 Sat by Pulse 98 98 Oximetry 11/14/21 11/14/21 11/14/21 06:00 07:00 07:08 Temperature 99.2 F Pulse Rate 68 71 Pulse Rate [ From Monitor] Respiratory Rate Blood Pressure 133/75 136/77 O2 Sat by Pulse 96 95 Oximetry 11/14/21 11/14/21 11/14/21 07:15 07:30 07:46 Temperature Pulse Rate 66 72 70 Pulse Rate [ From Monitor] Respiratory 22 Rate Blood Pressure 140/78 131/84 113/58 O2 Sat by Pulse 95 94 95 Oximetry 11/14/21 11/14/21 11/14/21 08:00 08:15 08:30 Temperature Pulse Rate 62 68 65 Pulse Rate [ 65 From Monitor] Respiratory 22 Rate Blood Pressure 103/45 114/60 121/61 O2 Sat by Pulse 95 96 96 Oximetry 11/14/21 11/14/21 11/14/21 08:45 09:00 09:15 Temperature Pulse Rate 63 67 68 Pulse Rate [ From Monitor] Respiratory 22 22 22 Rate Blood Pressure 120/65 120/60 124/65 O2 Sat by Pulse 96 93 96 Oximetry 11/14/21 11/14/21 11/14/21 09:30 09:41 09:45 Temperature Pulse Rate 64 72 70 Pulse Rate [ From Monitor] Respiratory 22 0 L 22 Rate Blood Pressure 120/61 124/76 124/76 O2 Sat by Pulse 97 95 100 Oximetry 11/14/21 11/14/21 11/14/21 10:00 10:16 10:30 Temperature Pulse Rate 67 71 71 Pulse Rate [ From Monitor] Respiratory 22 17 22 Rate Blood Pressure 132/67 149/84 142/81 O2 Sat by Pulse 95 94 93 Oximetry 11/14/21 11/14/21 11/14/21 10:45 11:00 11:31 Temperature 98.5 F Pulse Rate 79 74 Pulse Rate [ From Monitor] Respiratory 20 17 Rate Blood Pressure 161/100 178/99 O2 Sat by Pulse 95 96 Oximetry - General Appearance General appearance: obese, intubated EENT: ATNC, PERRL, mucous membranes dry Neck: no JVD Respiratory: Present: Clear to Ascultation. Absent: Rales, Ronchi Cardiology: regular, S1S2 Gastrointestinal: normoactive bowel sounds, no tenderness, no distended, no masses Integumentary: no rash, warm and dry Musculoskeletal: other (non pitting edema in BLE) - Lab 11/14/21 06:30 11/14/21 06:30 Most recent lab results ABG pH 7.409 pH Units (7.350-7.450) 11/14/21 04:10 ABG pCO2 40.0 mm Hg 11/14/21 04:10 ABG pO2 107.1 mm Hg (80.0-90.0) H 11/14/21 04:10 ABG HCO3 24.7 mmol/L (20.0-26.0) 11/14/21 04:10 ABG O2 Saturation 97.9 % (95.0-99.0) 11/14/21 04:10 Calcium 7.5 mg/dL (8.4-10.2) L 11/14/21 06:30 Phosphorus 3.10 mg/dL (2.5-4.5) D 11/14/21 06:30 Magnesium 1.60 mg/dL (1.7-2.3) L 11/14/21 06:30 Urine Creatinine 189.3 mg/dL (0.1-20.0) H 11/12/21 02:20 Urine Sodium 30 mmol/L 11/12/21 02:20 Medications & Allergies - Medications Allergies/Adverse Reactions: Allergies No Known Allergies Allergy (Verified 11/11/21 20:58) Active Medications: Generic Name Dose Route Start Last Admin Trade Name Freq PRN Reason Stop Dose Admin Acetaminophen 650 mg 11/11/21 22:40 Acetaminophen 325 Mg Tab PO Q4H PRN Pain MILD(1-3)/Fever >100.5/SOTO Albuterol 2.5 mg 11/11/21 22:40 Albuterol 2.5 Mg/3 Ml Nebu IH Q3HRT PRN Shortness Of Breath Aspirin 325 mg 11/12/21 10:00 11/14/21 10:14 Aspirin 325 Mg Tab PO 325 mg QDAY BAO Administration Atorvastatin Calcium 40 mg 11/12/21 22:00 11/13/21 22:39 Atorvastatin 40 Mg Tab PO 40 mg QHS BAO Administration Dextrose 0 ml 11/11/21 23:03 Dextrose 10% *Hypoglycemia IV PRN PRN Hypoglycemia Docusate Sodium 100 mg 11/12/21 22:00 11/14/21 10:14 Docusate Sodium 100 Mg/10 Ml Oral Liqd PO 100 mg BID BAO Administration Famotidine 20 mg 11/13/21 10:00 11/14/21 10:14 Famotidine 20 Mg Tab PO 20 mg QDAY BAO Administration Fentanyl 50 mcg 11/11/21 20:56 11/12/21 00:12 Fentanyl 100 Mcg/2 Ml Inj IV 50 mcg Q10MIN PRN Administration ANALGESIA Heparin Sodium (Porcine) 5,000 unit 11/12/21 10:00 11/14/21 10:17 Heparin 5,000 Unit/1 Ml Vial SUB-Q 5,000 unit Q12HR BAO Administration Hydrophilic Ointment 1 applic 11/11/21 20:56 Lip Therapy Vaseline TP Q2HR PRN Dry Lips Fentanyl Citrate 2,000 mcg in 100 mls @ 13.608 mls/hr 11/11/21 21:00 11/14/21 10:17 Fentanyl Drip Premix IV 2 mcg/kg/hr TITR BAO 27.216 mls/hr Administration Protocol 1 MCG/KG/HR NORepinephrine/NS 8 MG-250 ML 8 mg in 250 mls @ 3.75 mls/hr 11/11/21 23:00 11/14/21 02:49 Norepinephrine/Ns 8 Mg-250 Ml (Double Conc) IV 4 mcg/min TITRATE BAO 7.5 mls/hr Administration Protocol 2 MCG/MIN Propofol 1,000 mg in 100 mls @ 8.166 mls/hr 11/13/21 09:00 11/14/21 10:30 Diprivan 10 Mg/Ml IV 0 mcg/kg/min TITR BAO 0 mls/hr Titration Protocol 5 MCG/KG/MIN Magnesium Sulfate 2 gm in 50 mls @ 25 mls/hr 11/14/21 08:30 11/14/21 10:15 Magnesium Sulfate 2gm/50ml IV 11/14/21 12:30 25 mls/hr ONCE@0830 BAO Administration Insulin Human Lispro 0 unit 11/12/21 00:00 11/14/21 07:02 Insulin Lispro 100 Unit/Ml SUB-Q Not Given Q6HR [facility] Protocol Multi-Ingred Cream/Lotion/Oil/Oint 1 applic 11/11/21 20:56 Mineral Oil/Petrolatum, White Ophth Oint 3.5 Gm OU Q4HR PRN Dry Eye(s) Ondansetron HCl 4 mg 11/11/21 22:40 Ondansetron 4 Mg/2 Ml Inj IV Q8H PRN Nausea And Vomiting Potassium Chloride 20 meq 11/14/21 08:30 11/14/21 10:14 Potassium Chloride 20 Meq Packet FEEDTUBE 11/14/21 12:30 20 meq ONCE@0830 BAO Administration Sodium Chloride 10 ml 11/12/21 10:00 11/14/21 10:15 Sodium Chloride 0.9% 10 Ml Flush Syringe IV 10 ml BID BAO Administration Sodium Chloride 10 ml 11/11/21 22:40 Sodium Chloride 0.9% 10 Ml Flush Syringe IV PRN PRN LINE FLUSH
--- NOTE | 2021-11-14 12:35 | Progress Note ---
Assessment and Plan Assessment and plan: This is a 56-year-old male with DM, HTN, obesity, currently bedbound and past intubations admitted with acute hypoxic respiratory failure and acute renal failure Hospital course to date: 11/12: Overnight patient received a dialysis catheter and was initiated on dialysis. Iglesias catheter was also placed. Antibiotics discontinued. proBNP pending. Decrease in FiO2 related to ABG. Echocardiogram pending. Patient given X1 for potassium 5.5 and nutrition consulted for tube feedings. updated brother at bedside 11/13: Propofol letter for sedation as patient seems restless on the ventilator only on fentanyl. HD scheduled for today. [facility] plans to conduct PSV possibly Sunday. 11/14: Tolerated HD overnight, 2L removed. Plan for possible HD again today. Patient is tolerating PST today on low dose fentanyl, plan for possible extubation tomorrow. Neuro: Acute metabolic encephalopathy -Fentanyl drip -RASS goal 0 to -1 -Avoid delirium -Reorientation as needed -Maintain sleep-wake cycle -aspiration/seizure precautions -As needed analgesia -Patient will open eyes to verbal stimuli -Consider neurology consult Cardiac: h/o HTN, elevated troponins -Cardiology consulted, appreciate recommendations -Blood pressure monitoring per protocol -S/p vasopressor support -Echocardiogram shows ejection fraction greater than 70 Respiratory: Acute hypoxic respiratory failure, ? [facility] consulted, appreciate recommendations -Intubated in the emergency department with a 8.00 ETT at 24 the lips -A.m. vent settings:AC/PRVC rate 22, tidal 550, PEEP 6, FiO2 40% -See RT notes for titration -A.m. ABG and CXR noted -VAP bundle -SPO2 monitoring GI: Protin calorie malnutrition, Morbid obesity -Continue enteral nutrition -NTR consulted for tube feedings -BR: Colace : Acute Renal Failure -FeNa 1.04% indicating either ATN or prerenal state -Nephrology consulted, appreciate recommendations -Vas-Cath placed at HD initiated 11/12 -HD per nephrology -Strict intake and output -Renally dose medications -Avoid nephrotoxic medications -Daily weights -Renal ultrasound pending -Trend BMP -Repeat magnesium -We will likely need to be started on phosphate binders Endo: h/o DM -Avoid hypoglycemia -SSI -Accu-Cheks q. 6 -Hemoglobin A1c 5.7 GI/DVT Prophylaxis - PPI- Pepcid - Heparin SubQ The high probability of a clinically significant, sudden or life threatening deterioration of the [multi] system(s) required my full and direct attention, intervention and personal management. The aggregate critical care time was [60] minutes. This time is in addition to time spent performing reported procedures but includes the following: [x] Data Review and interpretation [x] Patient assessment and monitoring of vital signs [x] Documentation [x] Medication orders and management Disposition Plan: icu Total Time Spent with Patient (Minutes): 60 History Interval history: Patient seen and examined at the bedside. Intubated and on low dose sedation, fully awake and following commands. [facility] overnight Hospitalist Physical - Constitutional Vitals: Temp Pulse Resp BP Pulse Ox 98.5 F 68 22 147/69 95 11/14/21 11:31 11/14/21 12:15 11/14/21 12:15 11/14/21 12:15 11/14/21 12:15 General appearance: Present: no acute distress, obese, other (intubated, while awake on low dose sedation) - EENT Eyes: Present: PERRL ENT: hearing intact - Neck Neck: Present: normal ROM - Respiratory Respiratory effort: normal Respiratory: bilateral: rhonchi - Cardiovascular Rhythm: regular Heart Sounds: Present: S1 & S2 - Extremities Extremities: no ischemia, pulses intact, pulses symmetrical Extremity abnormal: edema - Peripheral Assessment Generalized Edema Type: Pitting Edema Degree: 2+ Capillary Refill: < 3 seconds Skin Temperature: Warm Peripheral Pulses: within normal limits - Abdominal General gastrointestinal: soft, non-distended, normal bowel sounds - Integumentary Integumentary: Present: warm, dry - Psychiatric Psychiatric: appropriate mood/affect, cooperative, other (intubated, while awake on low dose sedation) - Neurologic Neurologic: moves all extremities (Except right hand graft- patient unable to moved- that his baseline), other (intubated, while awake on low dose sedation) - Allied Health Allied health notes reviewed: nursing, case management HEART Score - HEART Score Troponin: Troponin T 0.313 ng/mL (0.00-0.029) H* 11/12/21 22:30 Results - Labs CBC & Chem 7: 11/14/21 06:30 11/14/21 06:30 Labs: Laboratory Last Values WBC 11.2 K/mm3 (4.5-11.0) H 11/14/21 06:30 RBC 3.03 M/mm3 (3.65-5.03) L 11/14/21 06:30 Hgb 8.1 gm/dl (11.8-15.2) L 11/14/21 06:30 Hct 26.6 % (35.5-45.6) L 11/14/21 06:30 MCV 88 fl (84-94) 11/14/21 06:30 MCH 27 pg (28-32) L 11/14/21 06:30 MCHC 30 % (32-34) L 11/14/21 06:30 RDW 19.3 % (13.2-15.2) H 11/14/21 06:30 Plt Count 233 K/mm3 (140-440) 11/14/21 06:30 Lymph % (Auto) 10.0 % (13.4-35.0) L 11/11/21 19:49 [place] % (Auto) 8.8 % (0.0-7.3) H 11/11/21 19:49 Eos % (Auto) 0.9 % (0.0-4.3) 11/11/21 19:49 Baso % (Auto) 0.5 % (0.0-1.8) 11/11/21 19:49 Lymph # (Auto) 1.1 K/mm3 (1.2-5.4) L 11/11/21 19:49 [place] # (Auto) 1.0 K/mm3 (0.0-0.8) H 11/11/21 19:49 Eos # (Auto) 0.1 K/mm3 (0.0-0.4) 11/11/21 19:49 Baso # (Auto) 0.1 K/mm3 (0.0-0.1) 11/11/21 19:49 Add Manual Diff Complete 11/12/21 06:55 Total Counted 100 11/12/21 06:55 Seg Neutrophils % Low Heel Builder 11/12/21 06:55 Seg Neuts % (Manual) 89.0 % (40.0-70.0) H 11/12/21 06:55 Band Neutrophils % 5.0 % 11/12/21 06:55 Lymphocytes % (Manual) 0 % (13.4-35.0) L 11/12/21 06:55 Reactive Lymphs % (Man) 0 % 11/12/21 06:55 Monocytes % (Manual) 3.0 % (0.0-7.3) 11/12/21 06:55 Eosinophils % (Manual) 0 % (0.0-4.3) 11/12/21 06:55 Basophils % (Manual) 0 % (0.0-1.8) 11/12/21 06:55 Metamyelocytes % 3.0 % 11/12/21 06:55 Myelocytes % 0 % 11/12/21 06:55 Promyelocytes % 0 % 11/12/21 06:55 Blast Cells % 0 % 11/12/21 06:55 Nucleated RBC % Not Reportable 11/12/21 06:55 Seg Neutrophils # 9.2 K/mm3 (1.8-7.7) H 11/11/21 19:49 Seg Neutrophils # Man 18.2 K/mm3 (1.8-7.7) H 11/12/21 06:55 Band Neutrophils # 1.0 K/mm3 11/12/21 06:55 Lymphocytes # (Manual) 0.0 K/mm3 (1.2-5.4) L 11/12/21 06:55 Abs React Lymphs (Man) 0.0 K/mm3 11/12/21 06:55 Monocytes # (Manual) 0.6 K/mm3 (0.0-0.8) 11/12/21 06:55 Eosinophils # (Manual) 0.0 K/mm3 (0.0-0.4) 11/12/21 06:55 Basophils # (Manual) 0.0 K/mm3 (0.0-0.1) 11/12/21 06:55 Metamyelocytes # 0.6 K/mm3 11/12/21 06:55 Myelocytes # 0.0 K/mm3 11/12/21 06:55 Promyelocytes # 0.0 K/mm3 11/12/21 06:55 Blast Cells # 0.0 K/mm3 11/12/21 06:55 WBC Morphology Not Reportable 11/12/21 06:55 Hypersegmented Neuts Not Reportable 11/12/21 06:55 Hyposegmented Neuts Not Reportable 11/12/21 06:55 Hypogranular Neuts Not Reportable 11/12/21 06:55 Smudge Cells Not Reportable 11/12/21 06:55 Toxic Granulation 1+ 11/12/21 06:55 Toxic Vacuolation Not Reportable 11/12/21 06:55 Dohle Bodies Not Reportable 11/12/21 06:55 Pelger-Huet Anomaly Not Reportable 11/12/21 06:55 Lissa Rods Not Reportable 11/12/21 06:55 Platelet Estimate Consistent w auto 11/12/21 06:55 Clumped Platelets Not Reportable 11/12/21 06:55 Plt Clumps, EDTA Not Reportable 11/12/21 06:55 Large Platelets Not Reportable 11/12/21 06:55 Giant Platelets Not Reportable 11/12/21 06:55 Platelet Satelliting Not Reportable 11/12/21 06:55 Plt Morphology Comment Not Reportable 11/12/21 06:55 RBC Morphology Normal 11/12/21 06:55 Dimorphic RBCs Not Reportable 11/12/21 06:55 Polychromasia Not Reportable 11/12/21 06:55 Hypochromasia Not Reportable 11/12/21 06:55 Poikilocytosis Not Reportable 11/12/21 06:55 Anisocytosis Not Reportable 11/12/21 06:55 Microcytosis Not Reportable 11/12/21 06:55 Macrocytosis Not Reportable 11/12/21 06:55 Spherocytes Not Reportable 11/12/21 06:55 Pappenheimer Bodies Not Reportable 11/12/21 06:55 Sickle Cells Not Reportable 11/12/21 06:55 Target Cells Not Reportable 11/12/21 06:55 Tear Drop Cells Not Reportable 11/12/21 06:55 Ovalocytes Not Reportable 11/12/21 06:55 Helmet Cells Not Reportable 11/12/21 06:55 Shea-Selman Bodies Not Reportable 11/12/21 06:55 Borden Rings Not Reportable 11/12/21 06:55 Zuly Cells Not Reportable 11/12/21 06:55 Bite Cells Not Reportable 11/12/21 06:55 Crenated Cell Not Reportable 11/12/21 06:55 Elliptocytes Not Reportable 11/12/21 06:55 Acanthocytes (Spur) Not Reportable 11/12/21 06:55 Rouleaux Not Reportable 11/12/21 06:55 Hemoglobin C Crystals Not Reportable 11/12/21 06:55 Schistocytes Not Reportable 11/12/21 06:55 Malaria parasites Not Reportable 11/12/21 06:55 Nam Bodies Not Reportable 11/12/21 06:55 Hem Pathologist Commnt No 11/12/21 06:55 ABG pH 7.409 pH Units (7.350-7.450) 11/14/21 04:10 ABG pCO2 40.0 mm Hg 11/14/21 04:10 ABG pO2 107.1 mm Hg (80.0-90.0) H 11/14/21 04:10 ABG HCO3 24.7 mmol/L (20.0-26.0) 11/14/21 04:10 ABG O2 Saturation 97.9 % (95.0-99.0) 11/14/21 04:10 ABG O2 Content 9.0 (0.0-44) 11/14/21 04:10 ABG Base Excess 0.0 mmol/L (-2.0-3.0) 11/14/21 04:10 ABG Hemoglobin 6.5 gm/dl (14.0-18.0) L 11/14/21 04:10 ABG Carboxyhemoglobin 1.1 % (0.0-5.0) 11/14/21 04:10 ABG Methemoglobin 0.4 % (0.0-1.5) 11/14/21 04:10 Oxyhemoglobin 96.4 % (95.0-99.0) 11/14/21 04:10 FiO2 45 % 11/14/21 04:10 Sodium 141 mmol/L (137-145) 11/14/21 06:30 Potassium 3.0 mmol/L (3.6-5.0) L D 11/14/21 06:30 Chloride 103.9 mmol/L (98-107) 11/14/21 06:30 Carbon Dioxide 22 mmol/L (22-30) 11/14/21 06:30 Anion Gap 18 mmol/L 11/14/21 06:30 BUN 41 mg/dL (9-20) H 11/14/21 06:30 Creatinine 7.0 mg/dL (0.8-1.3) H 11/14/21 06:30 Estimated GFR 10 ml/min 11/14/21 06:30 BUN/Creatinine Ratio 6 % 11/14/21 06:30 Glucose 107 mg/dL (75-100) H 11/14/21 06:30 POC Glucose 95 mg/dL (70-105) 11/14/21 05:18 Hemoglobin A1c 5.7 % (4-6) 11/12/21 06:55 Lactic Acid 0.90 mmol/L (0.7-2.0) 11/11/21 19:49 Calcium 7.5 mg/dL (8.4-10.2) L 11/14/21 06:30 Phosphorus 3.10 mg/dL (2.5-4.5) D 11/14/21 06:30 Magnesium 1.60 mg/dL (1.7-2.3) L 11/14/21 06:30 Iron 24 ug/dL (49-181) L 11/11/21 23:29 TIBC 157 mcg/dL (250-450) L 11/11/21 23:29 Total Bilirubin 0.40 mg/dL (0.1-1.2) 11/11/21 19:49 AST 10 units/L (5-40) 11/11/21 19:49 ALT 7 units/L (7-56) 11/11/21 19:49 Alkaline Phosphatase 111 units/L (35-129) 11/11/21 19:49 Total Creatine Kinase 268 units/L (55-170) H 11/11/21 23:29 Troponin T 0.313 ng/mL (0.00-0.029) H* 11/12/21 22:30 NT-Pro-B Natriuret Pep 3674 pg/mL (0-900) H 11/12/21 Unknown Total Protein 9.1 g/dL (6.3-8.2) H 11/11/21 19:49 Albumin 3.0 g/dL (3.9-5) L 11/11/21 19:49 Albumin/Globulin Ratio 0.5 % 11/11/21 19:49 Triglycerides 79 mg/dL (2-149) 11/11/21 19:49 Cholesterol 146 mg/dL (50-199) 11/11/21 19:49 LDL Cholesterol Direct 85 mg/dL (50-130) 11/11/21 19:49 HDL Cholesterol 43 mg/dL (40-59) 11/11/21 19:49 Cholesterol/HDL Ratio 3.39 % 11/11/21 19:49 PTH Intact 1174 pg/mL (15-65) H 11/11/21 23:29 Urine Color Yellow (Yellow) 11/12/21 02:20 Urine Turbidity Cloudy (Clear) 11/12/21 02:20 Urine pH 5.0 (5.0-7.0) 11/12/21 02:20 Ur Specific [place] 1.013 (1.003-1.030) 11/12/21 02:20 Urine Protein >500 mg/dL (Negative) 11/12/21 02:20 Urine Glucose (UA) Neg mg/dL (Negative) 11/12/21 02:20 Urine Ketones Neg mg/dL (Negative) 11/12/21 02:20 Urine Blood Sm (Negative) 11/12/21 02:20 Urine Nitrite Neg (Negative) 11/12/21 02:20 Urine Bilirubin Neg (Negative) 11/12/21 02:20 Urine Urobilinogen < 2.0 mg/dL (<2.0) 11/12/21 02:20 Ur Leukocyte Esterase Tr (Negative) 11/12/21 02:20 Urine WBC (Auto) 12.0 /HPF (0.0-6.0) H 11/12/21 02:20 Urine RBC (Auto) 4.0 /HPF (0.0-6.0) 11/12/21 02:20 U Epithel Cells (Auto) 9.0 /HPF (0-13.0) 11/12/21 02:20 Urine Bacteria (Auto) 2+ /HPF (Negative) 11/12/21 02:20 Urine Mucus Few /HPF 11/12/21 02:20 Urine Yeast (Budding) 3+ /HPF 11/12/21 02:20 Urine Eosinophils None seen (None Seen) 11/12/21 02:20 Urine Creatinine 189.3 mg/dL (0.1-20.0) H 11/12/21 02:20 Urine Sodium 30 mmol/L 11/12/21 02:20 Hepatitis A IgM Ab Non-reactive (NonReactive) 11/12/21 04:45 Hep Bs Antigen Non-reactive (Negative) 11/12/21 04:45 Hep B Core IgM Ab Non-reactive (NonReactive) 11/12/21 04:45 Hepatitis C Antibody Non-reactive (NonReactive) 11/12/21 04:45 Microbiology: Microbiology 11/11/21 02:28 Tracheal Aspirate Sputum Culture - Final 11/12/21 02:20 Urine,Clean Catch Urine Culture - Preliminary Enterococcus Species Iglesias/IV: Voiding Method Indwelling Catheter Active Medications - Current Medications Current Medications: Generic Name Dose Route Start Last Admin Trade Name Freq PRN Reason Stop Dose Admin Acetaminophen 650 mg 11/11/21 22:40 Acetaminophen 325 Mg Tab PO Q4H PRN Pain MILD(1-3)/Fever >100.5/SOTO Albuterol 2.5 mg 11/11/21 22:40 Albuterol 2.5 Mg/3 Ml Nebu IH Q3HRT PRN Shortness Of Breath Aspirin 325 mg 11/12/21 10:00 11/14/21 10:14 Aspirin 325 Mg Tab PO 325 mg QDAY BAO Administration Atorvastatin Calcium 40 mg 11/12/21 22:00 11/13/21 22:39 Atorvastatin 40 Mg Tab PO 40 mg QHS BAO Administration Dextrose 0 ml 11/11/21 23:03 Dextrose 10% *Hypoglycemia IV PRN PRN Hypoglycemia Docusate Sodium 100 mg 11/12/21 22:00 11/14/21 10:14 Docusate Sodium 100 Mg/10 Ml Oral Liqd PO 100 mg BID BAO Administration Famotidine 20 mg 11/13/21 10:00 11/14/21 10:14 Famotidine 20 Mg Tab PO 20 mg QDAY BAO Administration Fentanyl 50 mcg 11/11/21 20:56 11/12/21 00:12 Fentanyl 100 Mcg/2 Ml Inj IV 50 mcg Q10MIN PRN Administration ANALGESIA Heparin Sodium (Porcine) 5,000 unit 11/12/21 10:00 11/14/21 10:17 Heparin 5,000 Unit/1 Ml Vial SUB-Q 5,000 unit Q12HR BAO Administration Hydrophilic Ointment 1 applic 11/11/21 20:56 Lip Therapy Vaseline TP Q2HR PRN Dry Lips Fentanyl Citrate 2,000 mcg in 100 mls @ 13.608 mls/hr 11/11/21 21:00 11/14/21 12:12 Fentanyl Drip Premix IV 1 mcg/kg/hr TITR BAO 13.608 mls/hr Titration Protocol 1 MCG/KG/HR NORepinephrine/NS 8 MG-250 ML 8 mg in 250 mls @ 3.75 mls/hr 11/11/21 23:00 11/14/21 02:49 Norepinephrine/Ns 8 Mg-250 Ml (Double Conc) IV 4 mcg/min TITRATE BAO 7.5 mls/hr Administration Protocol 2 MCG/MIN Propofol 1,000 mg in 100 mls @ 8.166 mls/hr 11/13/21 09:00 11/14/21 10:30 Diprivan 10 Mg/Ml IV 0 mcg/kg/min TITR BAO 0 mls/hr Titration Protocol 5 MCG/KG/MIN Insulin Human Lispro 0 unit 11/12/21 00:00 11/14/21 12:19 Insulin Lispro 100 Unit/Ml SUB-Q Not Given Q6HR BAO Protocol Multi-Ingred Cream/Lotion/Oil/Oint 1 applic 11/11/21 20:56 Mineral Oil/Petrolatum, White Ophth Oint 3.5 Gm OU Q4HR PRN Dry Eye(s) Ondansetron HCl 4 mg 11/11/21 22:40 Ondansetron 4 Mg/2 Ml Inj IV Q8H PRN Nausea And Vomiting Sodium Chloride 10 ml 11/12/21 10:00 11/14/21 10:15 Sodium Chloride 0.9% 10 Ml Flush Syringe IV 10 ml BID BAO Administration Sodium Chloride 10 ml 11/11/21 22:40 Sodium Chloride 0.9% 10 Ml Flush Syringe IV PRN PRN LINE FLUSH Nutrition/Malnutrition Assess - Dietary Evaluation Nutrition/Malnutrition Findings: Nutrition Notes Start: 11/12/21 16 :08 Freq: Status: Active Protocol: Document 11/13/21 16:02 ANAIS (Rec: 11/13/21 16:12 ANAIS [email or web address]) Nutrition Notes Need for Assessment generated from: MD Order,Education Initial or Follow up Brief Note Current Diagnosis Acute Kidney Injury,Diabetes, Hypertension,Respiratory Failure Other Pertinent Diagnosis Pneumonia, Hyperkalemia, Metabolic Acidosis, Leukocytosis. Current Diet TF-Nepro w/CARBSTEADY @ 50 ml/ hr (since D 11/12). Height 5 ft 9 in Weight 272.2 kg [place] Body Weight (kg) 72.72 BMI 88.6 Weight change and time frame No body weight change reported . Weight Status Morbidly Obese Subjective/Other Information RD consult for Nutrition Education. No reports available on TF tolerance at the time, will assess at F/U. Pt still in critical condition , not a candidate for Nutrition Education at the time, will assess feasibility on F/U. Percent of energy/protein needs met: Prescribed TF-Nepro w/ CARBSTEADY @ 50 ml/hr provides for energy/protein needs (2, 178 Kcal/98 g) during LOS, 100 % Kcal; 47%% AA. Nutrition Intervention Follow-Up By: 11/14/21 Additional Comments Nutrition education will be provided on F/U, if feasible. Continue monitoring TF tolerance and BM.
--- NOTE | 2021-11-14 14:58 | Progress Note ---
Assessment and Plan 56 y/o morbidly obese male with acute respiratory failure, requiring intubation and now in acute renal failure and in need of HD 11/14/21: Wean PEEP again today and attempt PSV trial. If passes will attempt extubation. HD per renal 11/13/21: HD per renal. No PSV trials today. Wean PEEP after HD. Guarded prognosis. 1. Obtain ABG 2. Place Iglesias catheter 3. Wean Pressors for maps greater than 65 4. Insulin, D50 for Hyperkalemia, and HD per renal 5. Stopped scheduled duonebs 6. Stopped abx 7. Obtain BNP with morning labs 8. Guarded prognosis. CCT 31 minutes. Subjective Date of service: 11/14/21 Principal diagnosis: Acute respiratory failure, Interval history: Awake and alert. ON one and one. Had HD yesterday. Objective Vital Signs - 12hr 11/14/21 11/14/21 11/14/21 03:00 03:43 04:00 Temperature 98.1 F Pulse Rate 58 L 59 L Pulse Rate [ 61 From Monitor] Respiratory Rate Blood Pressure 108/63 104/57 O2 Sat by Pulse 98 98 Oximetry 11/14/21 11/14/21 11/14/21 05:00 06:00 07:00 Temperature Pulse Rate 73 68 71 Pulse Rate [ From Monitor] Respiratory Rate Blood Pressure 125/80 133/75 136/77 O2 Sat by Pulse 98 96 95 Oximetry 11/14/21 11/14/21 11/14/21 07:08 07:15 07:30 Temperature 99.2 F Pulse Rate 66 72 Pulse Rate [ From Monitor] Respiratory Rate Blood Pressure 140/78 131/84 O2 Sat by Pulse 95 94 Oximetry 11/14/21 11/14/21 11/14/21 07:46 08:00 08:15 Temperature Pulse Rate 70 62 68 Pulse Rate [ 65 From Monitor] Respiratory 22 Rate Blood Pressure 113/58 103/45 114/60 O2 Sat by Pulse 95 95 96 Oximetry 11/14/21 11/14/21 11/14/21 08:30 08:45 09:00 Temperature Pulse Rate 65 63 67 Pulse Rate [ From Monitor] Respiratory 22 Rate Blood Pressure 121/61 120/65 120/60 O2 Sat by Pulse 96 96 93 Oximetry 11/14/21 11/14/21 11/14/21 09:15 09:30 09:41 Temperature Pulse Rate 68 64 72 Pulse Rate [ From Monitor] Respiratory 22 22 0 L Rate Blood Pressure 124/65 120/61 124/76 O2 Sat by Pulse 96 97 95 Oximetry 11/14/21 11/14/21 11/14/21 09:45 10:00 10:16 Temperature Pulse Rate 70 67 71 Pulse Rate [ From Monitor] Respiratory 22 17 Rate Blood Pressure 124/76 132/67 149/84 O2 Sat by Pulse 100 95 94 Oximetry 11/14/21 11/14/21 11/14/21 10:30 10:45 11:00 Temperature Pulse Rate 71 79 74 Pulse Rate [ From Monitor] Respiratory 20 17 Rate Blood Pressure 142/81 161/100 178/99 O2 Sat by Pulse 93 95 96 Oximetry 11/14/21 11/14/21 11/14/21 11:15 11:30 11:31 Temperature 98.5 F Pulse Rate 83 73 Pulse Rate [ From Monitor] Respiratory 12 22 Rate Blood Pressure 146/124 146/124 O2 Sat by Pulse 92 93 Oximetry 11/14/21 11/14/21 11/14/21 11:45 12:00 12:15 Temperature Pulse Rate 75 70 68 Pulse Rate [ 73 From Monitor] Respiratory 18 15 22 Rate Blood Pressure 152/87 148/77 147/69 O2 Sat by Pulse 95 95 95 Oximetry 11/14/21 11/14/21 11/14/21 12:30 12:45 13:00 Temperature Pulse Rate 73 78 74 Pulse Rate [ From Monitor] Respiratory 18 Rate Blood Pressure 148/78 133/74 133/74 O2 Sat by Pulse 95 95 92 Oximetry 11/14/21 11/14/21 11/14/21 13:15 13:30 13:46 Temperature Pulse Rate 69 69 78 Pulse Rate [ From Monitor] Respiratory 21 18 Rate Blood Pressure 135/70 135/70 148/75 O2 Sat by Pulse 94 94 93 Oximetry 11/14/21 11/14/21 11/14/21 14:00 14:16 14:30 Temperature Pulse Rate 69 71 69 Pulse Rate [ From Monitor] Respiratory 22 Rate Blood Pressure 135/69 166/95 166/95 O2 Sat by Pulse 94 97 94 Oximetry Constitutional: comatose Eyes: non-icteric ENT: other (orally intubated and sedated) Neck: supple, other (large in circumference) Effort: normal Ascultation: Bilateral: diminished breath sounds Cardiovascular: regular rate and rhythm Gastrointestinal: normoactive bowel sounds Extremities: edema, anasarca Neurologic: unable to assess CBC and BMP: 11/14/21 06:30 11/14/21 06:30 ABG, PT/INR, D-dimer: ABG ABG pH 7.409 pH Units (7.350-7.450) 11/14/21 04:10 ABG pCO2 40.0 mm Hg 11/14/21 04:10 ABG pO2 107.1 mm Hg (80.0-90.0) H 11/14/21 04:10 ABG O2 Saturation 97.9 % (95.0-99.0) 11/14/21 04:10 Abnormal lab findings: Abnormal Labs 11/11/21 11/11/21 11/11/21 19:49 19:49 23:29 WBC 11.5 H RBC Hgb 10.1 L Hct 34.8 L MCH 27 L MCHC 29 L RDW 20.1 H Lymph % (Auto) 10.0 L [place] % (Auto) 8.8 H Lymph # (Auto) 1.1 L [place] # (Auto) 1.0 H Seg Neutrophils % 79.8 H Seg Neuts % (Manual) Lymphocytes % (Manual) Seg Neutrophils # 9.2 H Seg Neutrophils # Man Lymphocytes # (Manual) ABG pH ABG pO2 ABG HCO3 ABG O2 Saturation ABG Base Excess ABG Hemoglobin Sodium Potassium 7.6 H* Chloride 107.8 H Carbon Dioxide 13 L BUN 107 H Creatinine 13.8 H Glucose POC Glucose Calcium 7.5 L Phosphorus Magnesium Iron TIBC Total Creatine Kinase 268 H Troponin T 0.324 H* NT-Pro-B Natriuret Pep Total Protein 9.1 H Albumin 3.0 L PTH Intact Urine WBC (Auto) Urine Creatinine 11/11/21 11/11/21 11/12/21 23:29 23:29 02:20 WBC RBC Hgb Hct MCH MCHC RDW Lymph % (Auto) [place] % (Auto) Lymph # (Auto) [place] # (Auto) Seg Neutrophils % Seg Neuts % (Manual) Lymphocytes % (Manual) Seg Neutrophils # Seg Neutrophils # Man Lymphocytes # (Manual) ABG pH ABG pO2 ABG HCO3 ABG O2 Saturation ABG Base Excess ABG Hemoglobin Sodium Potassium Chloride Carbon Dioxide BUN Creatinine Glucose POC Glucose Calcium Phosphorus Magnesium Iron 24 L TIBC 157 L Total Creatine Kinase Troponin T NT-Pro-B Natriuret Pep Total Protein Albumin PTH Intact 1174 H Urine WBC (Auto) Urine Creatinine 189.3 H 11/12/21 11/12/21 11/12/21 02:20 02:28 06:55 WBC 20.5 H RBC 3.54 L Hgb 9.4 L Hct 32.3 L MCH 27 L MCHC 29 L RDW 20.0 H Lymph % (Auto) [place] % (Auto) Lymph # (Auto) [place] # (Auto) Seg Neutrophils % Seg Neuts % (Manual) 89.0 H Lymphocytes % (Manual) 0 L Seg Neutrophils # Seg Neutrophils # Man 18.2 H Lymphocytes # (Manual) 0.0 L ABG pH 7.172 L* ABG pO2 100.6 H ABG HCO3 17.4 L ABG O2 Saturation ABG Base Excess -10.6 L ABG Hemoglobin 9.4 L Sodium Potassium Chloride Carbon Dioxide BUN Creatinine Glucose POC Glucose Calcium Phosphorus Magnesium Iron TIBC Total Creatine Kinase Troponin T NT-Pro-B Natriuret Pep Total Protein Albumin PTH Intact Urine WBC (Auto) 12.0 H Urine Creatinine 11/12/21 11/12/21 11/12/21 06:55 09:10 12:01 WBC RBC Hgb Hct MCH MCHC RDW Lymph % (Auto) [place] % (Auto) Lymph # (Auto) [place] # (Auto) Seg Neutrophils % Seg Neuts % (Manual) Lymphocytes % (Manual) Seg Neutrophils # Seg Neutrophils # Man Lymphocytes # (Manual) ABG pH 7.296 L ABG pO2 237.3 H ABG HCO3 ABG O2 Saturation 99.3 H ABG Base Excess -6.0 L ABG Hemoglobin 8.8 L Sodium Potassium 5.5 H D Chloride 107.1 H Carbon Dioxide 19 L BUN 78 H Creatinine 9.4 H Glucose 119 H POC Glucose 106 H Calcium 8.1 L Phosphorus Magnesium Iron TIBC Total Creatine Kinase Troponin T NT-Pro-B Natriuret Pep Total Protein Albumin PTH Intact Urine WBC (Auto) Urine Creatinine 11/12/21 11/12/21 11/12/21 16:46 16:46 22:30 WBC RBC Hgb Hct MCH MCHC RDW Lymph % (Auto) [place] % (Auto) Lymph # (Auto) [place] # (Auto) Seg Neutrophils % Seg Neuts % (Manual) Lymphocytes % (Manual) Seg Neutrophils # Seg Neutrophils # Man Lymphocytes # (Manual) ABG pH ABG pO2 ABG HCO3 ABG O2 Saturation ABG Base Excess ABG Hemoglobin Sodium 146 H Potassium Chloride 108.2 H Carbon Dioxide 21 L BUN 66 H Creatinine 9.8 H Glucose 125 H POC Glucose Calcium 7.8 L Phosphorus Magnesium Iron TIBC Total Creatine Kinase Troponin T 0.319 H* 0.313 H* NT-Pro-B Natriuret Pep Total Protein Albumin PTH Intact Urine WBC (Auto) Urine Creatinine 11/12/21 11/12/21 11/13/21 23:18 Unknown 04:00 WBC 17.2 H RBC 3.09 L Hgb 8.4 L Hct 27.5 L MCH 27 L MCHC 30 L RDW 19.6 H Lymph % (Auto) [place] % (Auto) Lymph # (Auto) [place] # (Auto) Seg Neutrophils % Seg Neuts % (Manual) Lymphocytes % (Manual) Seg Neutrophils # Seg Neutrophils # Man Lymphocytes # (Manual) ABG pH ABG pO2 ABG HCO3 ABG O2 Saturation ABG Base Excess ABG Hemoglobin Sodium Potassium Chloride Carbon Dioxide BUN Creatinine Glucose POC Glucose 120 H Calcium Phosphorus Magnesium Iron TIBC Total Creatine Kinase Troponin T NT-Pro-B Natriuret Pep 3674 H Total Protein Albumin PTH Intact Urine WBC (Auto) Urine Creatinine 11/13/21 11/13/21 11/13/21 04:00 04:00 05:23 WBC RBC Hgb Hct MCH MCHC RDW Lymph % (Auto) [place] % (Auto) Lymph # (Auto) [place] # (Auto) Seg Neutrophils % Seg Neuts % (Manual) Lymphocytes % (Manual) Seg Neutrophils # Seg Neutrophils # Man Lymphocytes # (Manual) ABG pH 7.274 L ABG pO2 93.2 H ABG HCO3 ABG O2 Saturation ABG Base Excess -3.9 L ABG Hemoglobin 8.2 L Sodium Potassium Chloride Carbon Dioxide 21 L BUN 71 H Creatinine 9.9 H Glucose 128 H POC Glucose 117 H Calcium 7.7 L Phosphorus 5.10 H Magnesium 1.60 L Iron TIBC Total Creatine Kinase Troponin T NT-Pro-B Natriuret Pep Total Protein Albumin PTH Intact Urine WBC (Auto) Urine Creatinine 11/13/21 11/13/21 11/14/21 16:20 23:31 04:10 WBC RBC Hgb Hct MCH MCHC RDW Lymph % (Auto) [place] % (Auto) Lymph # (Auto) [place] # (Auto) Seg Neutrophils % Seg Neuts % (Manual) Lymphocytes % (Manual) Seg Neutrophils # Seg Neutrophils # Man Lymphocytes # (Manual) ABG pH ABG pO2 107.1 H ABG HCO3 ABG O2 Saturation ABG Base Excess ABG Hemoglobin 6.5 L Sodium Potassium Chloride Carbon Dioxide BUN Creatinine Glucose POC Glucose 125 H 123 H Calcium Phosphorus Magnesium Iron TIBC Total Creatine Kinase Troponin T NT-Pro-B Natriuret Pep Total Protein Albumin PTH Intact Urine WBC (Auto) Urine Creatinine 11/14/21 11/14/21 06:30 06:30 WBC 11.2 H RBC 3.03 L Hgb 8.1 L Hct 26.6 L MCH 27 L MCHC 30 L RDW 19.3 H Lymph % (Auto) [place] % (Auto) Lymph # (Auto) [place] # (Auto) Seg Neutrophils % Seg Neuts % (Manual) Lymphocytes % (Manual) Seg Neutrophils # Seg Neutrophils # Man Lymphocytes # (Manual) ABG pH ABG pO2 ABG HCO3 ABG O2 Saturation ABG Base Excess ABG Hemoglobin Sodium Potassium 3.0 L D Chloride Carbon Dioxide BUN 41 H Creatinine 7.0 H Glucose 107 H POC Glucose Calcium 7.5 L Phosphorus Magnesium 1.60 L Iron TIBC Total Creatine Kinase Troponin T NT-Pro-B Natriuret Pep Total Protein Albumin PTH Intact Urine WBC (Auto) Urine Creatinine Allied health notes reviewed: nursing
[2021-11-15] MEDS: fentaNYL DRIP Premix 2,000 MCG/100 ML BAG IV SCH ×3 (03:00→18:41)
[2021-11-15 05:12] LABS: Hematocrit 26.3 % (35.5-45.6); Hemoglobin 8.1 gm/dl (11.8-15.2); Mean Corpuscular HGB Conc 31 % (32-34); Mean Corpuscular Volume 88 fl (84-94); Platelet Count 221 K/mm3 (140-440); Red Cell Distribution Width 19.2 % (13.2-15.2)
[2021-11-15 05:34] LABS: Calcium 8.3 mg/dL (8.4-10.2)
[2021-11-15] MEDS: INSULIN LISPRO 100 UNIT/ML SUB-Q SCH ×4 (05:43→19:38)
[2021-11-15] MEDS: ASPIRIN 325 MG TAB PO SCH (09:47)
[2021-11-15] MEDS: HEPARIN 5,000 UNIT/1 ML VIAL SUB-Q SCH ×2 (09:47→21:10)
[2021-11-15] MEDS: FAMOTIDINE 20 MG TAB PO SCH (09:47)
[2021-11-15] MEDS: DOCUSATE SODIUM 100 MG/10 ML ORAL LIQD PO SCH ×2 (09:47→21:10)
--- NOTE | 2021-11-15 10:37 | Progress Note ---
Assessment and Plan Patient is a 56-year-old morbidly obese bedbound male who was admitted with acute respiratory failure and acute renal failure on 11/12/21. Cardiology initially consulted for elevated troponin on admission. Assessment: Acute Encephalopathy Acute Respiratory Failure Acute Renal Failure (s/p Vascath placement & emergent HD 11/11)- nephrology following Hyperkalemia (resolved) Anemia S/p Shock H/o HTN DM Morbid Obesity/Bedbound ?OHS/AYAN Chronic Lymphedema NSTEMI- likely type II DC in the setting of acute respiratory failure/acute renal failure/shock. Cardiographics: EKG- 11/12/21-sinus rhythm, low voltage, extremity Chest x-ray- 11/14/21: Minimal interval change in the chest. There may be minimal improvement airspace opacities mid chest. Persistent low opacities are noted Echocardiogram- 11/11/21: Exam will be followed up by limited Optison contrast study on 11/14/2021. Left ventricle systolic function is normal. LVEF is > 70%. Mild concentric left ventricular hypertrophy. There is no pericardial effusion. Follow-up limited echo 11/14/2021: LV: The left ventricular systolic function is normal. The left ventricular ejection fraction is within the normal range. LVEF is 55 to 60%. No left ventricle thrombus noted on the study Plan: Limited follow-up echocardiogram result as above. Ischemic evaluation unattainable at this time due to patient weight limitations. Electrolyte replacement per Nephrology Continue present management per Primary teams. Patient seen in conjunction with Dr. Metcalf, who agrees with the assessment and plan of care. - Patient Problems (1) Acute renal failure (ARF) Current Visit: Yes Status: Acute Qualifiers: Qualified Code(s): N17.9 - Acute kidney failure, unspecified (2) Acute respiratory failure Current Visit: Yes Status: Acute Qualifiers: Respiratory failure complication: hypoxia Qualified Code(s): J96.01 - Acute respiratory failure with hypoxia (3) Elevated troponin Current Visit: Yes Status: Acute (4) Obesity Current Visit: Yes Status: Acute (5) SOB (shortness of breath) Current Visit: Yes Status: Acute (6) Type 2 DC (myocardial infarction) Current Visit: Yes Status: Acute Subjective Date of service: 11/15/21 Principal diagnosis: Acute respiratory failure, Interval history: Patient seen and examined this morning in the intensive care unit. Patient remains intubated, however is awake and following commands on the vent. Tolerating PST. Possible extubation today. No apparent distress. Telemetry: Sinus rhythm 70s Intake & Output 11/12/21 11/13/21 11/14/21 11/15/21 23:59 23:59 23:59 23:59 Intake Total 2134.825 2562.060 2070.349 986.151 Output Total 35 0 38 15 Balance 2099.825 2562.060 2032.349 971.151 Weight 272.2 kg 272.2 kg 272.2 kg Objective Vital Signs Temp Pulse Pulse Resp BP Pulse Ox Pulse Ox 11/15/21 10:00 64 22 110/55 93 11/15/21 09:00 73 22 110/57 91 11/15/21 08:00 98 F 64 22 122/65 93 11/15/21 07:00 67 22 128/76 95 11/15/21 06:00 63 22 99/41 95 11/15/21 05:00 69 22 123/69 96 11/15/21 04:03 78 127/82 99 11/15/21 04:00 98.3 F 75 77 22 103/64 97 11/15/21 03:00 60 22 98/53 98 11/15/21 02:00 62 22 103/60 98 11/15/21 01:00 64 22 108/66 97 11/15/21 00:00 97.7 F 60 77 22 96/62 98 11/14/21 23:36 59 L 97/60 99 11/14/21 23:32 60 22 97/60 99 11/14/21 23:00 61 22 97/53 99 11/14/21 22:00 62 22 113/57 97 11/14/21 21:00 82 20 182/92 96 11/14/21 20:00 98.2 F 85 77 14 201/99 97 11/14/21 19:48 83 146/92 95 11/14/21 19:00 76 22 175/91 94 11/14/21 18:47 96 11/14/21 18:39 75 12 133/68 98 11/14/21 18:10 97.9 F 93 H 22 141/77 94 11/14/21 18:00 83 18 158/89 93 11/14/21 17:45 72 22 136/70 95 11/14/21 17:30 79 22 148/94 97 11/14/21 17:16 67 22 161/84 96 11/14/21 17:15 72 161/84 11/14/21 17:00 69 22 140/81 96 11/14/21 16:45 65 22 140/81 97 11/14/21 16:30 75 16 140/92 96 11/14/21 16:15 68 22 146/82 97 11/14/21 16:00 97.9 F 64 77 14 125/66 97 11/14/21 15:52 64 0 L 129/81 97 11/14/21 15:45 68 22 129/81 96 11/14/21 15:30 66 20 140/76 96 11/14/21 15:16 66 22 124/63 96 11/14/21 15:15 65 134/63 11/14/21 15:00 66 22 142/71 95 11/14/21 14:46 21 133/72 95 11/14/21 14:45 98.4 F 74 22 133/72 97 11/14/21 14:30 69 22 166/95 94 11/14/21 14:16 71 22 166/95 97 11/14/21 14:00 69 22 135/69 94 11/14/21 13:46 78 18 148/75 93 11/14/21 13:30 69 21 135/70 94 11/14/21 13:15 69 22 135/70 94 11/14/21 13:00 74 18 133/74 92 11/14/21 12:45 78 22 133/74 95 11/14/21 12:30 73 22 148/78 95 11/14/21 12:15 68 22 147/69 95 11/14/21 12:00 70 73 15 148/77 95 11/14/21 11:45 75 18 152/87 95 11/14/21 11:31 98.5 F 11/14/21 11:30 73 22 146/124 93 11/14/21 11:15 83 12 146/124 92 11/14/21 11:00 74 17 178/99 96 11/14/21 10:45 79 20 161/100 95 - Physical Examination General: No Apparent Distress HEENT: Positive: Normocephaly Neck: Negative: JVD/HJR Cardiac: Positive: Reg Rate and Rhythm, S1/S2 Lungs: Positive: clear to auscultation (Anterior lobes), Ventilated Respirations Neuro: Positive: Other (intubated but awake and alert. Following commands. ) Abdomen: Positive: Soft, Active Bowel Sounds Skin: Negative: Rash Extremities: Present: edema (Chronic lymphedema bilateral lower extremities) - Labs and Meds CBC 11/15/21 Range/Units 04:00 WBC 11.3 H (4.5-11.0) K/mm3 RBC 3.00 L (3.65-5.03) M/mm3 Hgb 8.1 L (11.8-15.2) gm/dl Hct 26.3 L (35.5-45.6) % Plt Count 221 (140-440) K/mm3 Comprehensive Metabolic Panel 11/14/21 11/15/21 Range/Units 15:00 04:00 Sodium 140 (137-145) mmol/L Potassium 3.4 L 3.4 L (3.6-5.0) mmol/L Chloride 100.6 (98-107) mmol/L Carbon Dioxide 24 (22-30) mmol/L BUN 32 H (9-20) mg/dL Creatinine 5.9 H (0.8-1.3) mg/dL Glucose 117 H (75-100) mg/dL Calcium 8.3 L (8.4-10.2) mg/dL - Imaging and Cardiology EKG: report reviewed, image reviewed Echo: pending - Telemetry EKG Rhythm: Sinus Rhythm - Allied health notes Allied health notes reviewed: nursing
--- NOTE | 2021-11-15 11:31 | Progress Note ---
Assessment and Plan (1) Acute respiratory failure (2) Pneumonia (3) Hypoxia (4) KD (acute kidney injury) on top of CKD (5) Hyperkalemia (6) Diabetes (7) Elevated troponin (8) Hypertension (9) Obesity (10)Acidosis -no indication for HD today -no UOP recorded, renal US is pending -Intubated on Vent -Eval for HD need daily -Renally dose all meds Subjective Date of service: 11/15/21 Principal diagnosis: Acute respiratory failure, Interval history: tolerated HD yesterday Objective - Vital Signs Vital signs: Vital Signs - 12hr 11/14/21 11/14/21 11/15/21 23:32 23:36 00:00 Temperature 97.7 F Pulse Rate 60 59 L 60 Pulse Rate [ 77 From Monitor] Respiratory 22 Rate Blood Pressure 97/60 97/60 96/62 O2 Sat by Pulse 99 99 98 Oximetry 11/15/21 11/15/21 11/15/21 01:00 02:00 03:00 Temperature Pulse Rate 64 62 60 Pulse Rate [ From Monitor] Respiratory 22 Rate Blood Pressure 108/66 103/60 98/53 O2 Sat by Pulse 97 98 98 Oximetry 11/15/21 11/15/21 11/15/21 04:00 04:03 05:00 Temperature 98.3 F Pulse Rate 75 78 69 Pulse Rate [ 77 From Monitor] Respiratory 22 22 Rate Blood Pressure 103/64 127/82 123/69 O2 Sat by Pulse 97 99 96 Oximetry 11/15/21 11/15/21 11/15/21 06:00 07:00 08:00 Temperature 98 F Pulse Rate 63 67 64 Pulse Rate [ 64 From Monitor] Respiratory 22 22 14 Rate Blood Pressure 99/41 128/76 122/65 O2 Sat by Pulse 95 95 98 Oximetry 11/15/21 11/15/21 11/15/21 09:00 10:00 11:00 Temperature Pulse Rate 73 64 65 Pulse Rate [ From Monitor] Respiratory 22 Rate Blood Pressure 110/57 110/55 102/52 O2 Sat by Pulse 91 93 95 Oximetry - Lab 11/15/21 04:00 11/15/21 04:00 Most recent lab results ABG pH 7.409 pH Units (7.350-7.450) 11/14/21 04:10 ABG pCO2 40.0 mm Hg 11/14/21 04:10 ABG pO2 107.1 mm Hg (80.0-90.0) H 11/14/21 04:10 ABG HCO3 24.7 mmol/L (20.0-26.0) 11/14/21 04:10 ABG O2 Saturation 97.9 % (95.0-99.0) 11/14/21 04:10 Calcium 8.3 mg/dL (8.4-10.2) L 11/15/21 04:00 Phosphorus 3.10 mg/dL (2.5-4.5) 11/15/21 04:00 Magnesium 1.90 mg/dL (1.7-2.3) 11/14/21 15:00 Urine Creatinine 189.3 mg/dL (0.1-20.0) H 11/12/21 02:20 Urine Sodium 30 mmol/L 11/12/21 02:20 Medications & Allergies - Medications Allergies/Adverse Reactions: Allergies No Known Allergies Allergy (Verified 11/11/21 20:58) Active Medications: Generic Name Dose Route Start Last Admin Trade Name Freq PRN Reason Stop Dose Admin Acetaminophen 650 mg 11/11/21 22:40 Acetaminophen 325 Mg Tab PO Q4H PRN Pain MILD(1-3)/Fever >100.5/SOTO Albuterol 2.5 mg 11/11/21 22:40 Albuterol 2.5 Mg/3 Ml Nebu IH Q3HRT PRN Shortness Of Breath Aspirin 325 mg 11/12/21 10:00 11/15/21 09:47 Aspirin 325 Mg Tab PO 325 mg QDAY BAO Administration Atorvastatin Calcium 40 mg 11/12/21 22:00 11/14/21 22:00 Atorvastatin 40 Mg Tab PO 40 mg QHS BAO Administration Dextrose 0 ml 11/11/21 23:03 Dextrose 10% *Hypoglycemia IV PRN PRN Hypoglycemia Docusate Sodium 100 mg 11/12/21 22:00 11/15/21 09:47 Docusate Sodium 100 Mg/10 Ml Oral Liqd PO 100 mg BID BAO Administration Famotidine 20 mg 11/13/21 10:00 11/15/21 09:47 Famotidine 20 Mg Tab PO 20 mg QDAY BAO Administration Fentanyl 50 mcg 11/11/21 20:56 11/12/21 00:12 Fentanyl 100 Mcg/2 Ml Inj IV 50 mcg Q10MIN PRN Administration ANALGESIA Heparin Sodium (Porcine) 5,000 unit 11/12/21 10:00 11/15/21 09:47 Heparin 5,000 Unit/1 Ml Vial SUB-Q 5,000 unit Q12HR BAO Administration Hydrophilic Ointment 1 applic 11/11/21 20:56 Lip Therapy Vaseline TP Q2HR PRN Dry Lips Fentanyl Citrate 2,000 mcg in 100 mls @ 13.608 mls/hr 11/11/21 21:00 11/15/21 11:02 Fentanyl Drip Premix IV 0 mcg/kg/hr TITR BAO 0 mls/hr Titration Protocol 1 MCG/KG/HR NORepinephrine/NS 8 MG-250 ML 8 mg in 250 mls @ 3.75 mls/hr 11/11/21 23:00 11/14/21 02:49 Norepinephrine/Ns 8 Mg-250 Ml (Double Conc) IV 4 mcg/min TITRATE BAO 7.5 mls/hr Administration Protocol 2 MCG/MIN Propofol 1,000 mg in 100 mls @ 8.166 mls/hr 11/13/21 09:00 11/15/21 11:00 Diprivan 10 Mg/Ml IV 0 mcg/kg/min TITR BAO 0 mls/hr Titration Protocol 5 MCG/KG/MIN Insulin Human Lispro 0 unit 11/12/21 00:00 11/15/21 07:25 Insulin Lispro 100 Unit/Ml SUB-Q Not Given Q6HR [facility] Protocol Multi-Ingred Cream/Lotion/Oil/Oint 1 applic 11/11/21 20:56 Mineral Oil/Petrolatum, White Ophth Oint 3.5 Gm OU Q4HR PRN Dry Eye(s) Ondansetron HCl 4 mg 11/11/21 22:40 Ondansetron 4 Mg/2 Ml Inj IV Q8H PRN Nausea And Vomiting Sodium Chloride 10 ml 11/12/21 10:00 11/14/21 20:55 Sodium Chloride 0.9% 10 Ml Flush Syringe IV 10 ml BID BAO Administration Sodium Chloride 10 ml 11/11/21 22:40 Sodium Chloride 0.9% 10 Ml Flush Syringe IV PRN PRN LINE FLUSH
--- NOTE | 2021-11-15 11:37 | Progress Note ---
Assessment and Plan 56 y/o morbidly obese male with acute respiratory failure, requiring intubation and now in acute renal failure and in need of HD 11/15/21: stop sedation. Attempt PSV. Bipap PRN and QHS. Hopeful extubation today. HD per renal. 11/14/21: Wean PEEP again today and attempt PSV trial. If passes will attempt extubation. HD per renal 11/13/21: HD per renal. No PSV trials today. Wean PEEP after HD. Guarded prognosis. 1. Obtain ABG 2. Place Iglesias catheter 3. Wean Pressors for maps greater than 65 4. Insulin, D50 for Hyperkalemia, and HD per renal 5. Stopped scheduled duonebs 6. Stopped abx 7. Obtain BNP with morning labs 8. Guarded prognosis. CCT 31 minutes. Subjective Date of service: 11/15/21 Principal diagnosis: Acute respiratory failure, Interval history: No acute events. Awake and alert. Wants tube out. Objective Vital Signs - 12hr 11/14/21 11/15/21 11/15/21 23:36 00:00 01:00 Temperature 97.7 F Pulse Rate 59 L 60 64 Pulse Rate [ 77 From Monitor] Respiratory 22 Rate Blood Pressure 97/60 96/62 108/66 O2 Sat by Pulse 99 98 97 Oximetry 11/15/21 11/15/21 11/15/21 02:00 03:00 04:00 Temperature 98.3 F Pulse Rate 62 60 75 Pulse Rate [ 77 From Monitor] Respiratory 22 Rate Blood Pressure 103/60 98/53 103/64 O2 Sat by Pulse 98 98 97 Oximetry 11/15/21 11/15/21 11/15/21 04:03 05:00 06:00 Temperature Pulse Rate 78 69 63 Pulse Rate [ From Monitor] Respiratory 22 Rate Blood Pressure 127/82 123/69 99/41 O2 Sat by Pulse 99 96 95 Oximetry 11/15/21 11/15/21 11/15/21 07:00 08:00 09:00 Temperature 98 F Pulse Rate 67 64 73 Pulse Rate [ 64 From Monitor] Respiratory 22 14 22 Rate Blood Pressure 128/76 122/65 110/57 O2 Sat by Pulse 95 98 91 Oximetry 11/15/21 11/15/21 10:00 11:00 Temperature Pulse Rate 64 65 Pulse Rate [ From Monitor] Respiratory 22 Rate Blood Pressure 110/55 102/52 O2 Sat by Pulse 93 95 Oximetry Constitutional: comatose Eyes: non-icteric ENT: other (orally intubated and sedated) Neck: supple, other (large in circumference) Effort: normal Ascultation: Bilateral: diminished breath sounds Cardiovascular: regular rate and rhythm Gastrointestinal: normoactive bowel sounds Extremities: edema, anasarca Neurologic: unable to assess CBC and BMP: 11/15/21 04:00 11/15/21 04:00 ABG, PT/INR, D-dimer: ABG ABG pH 7.409 pH Units (7.350-7.450) 11/14/21 04:10 ABG pCO2 40.0 mm Hg 11/14/21 04:10 ABG pO2 107.1 mm Hg (80.0-90.0) H 11/14/21 04:10 ABG O2 Saturation 97.9 % (95.0-99.0) 11/14/21 04:10 Abnormal lab findings: Abnormal Labs 11/11/21 11/11/21 11/11/21 19:49 19:49 23:29 WBC 11.5 H RBC Hgb 10.1 L Hct 34.8 L MCH 27 L MCHC 29 L RDW 20.1 H Lymph % (Auto) 10.0 L [place] % (Auto) 8.8 H Lymph # (Auto) 1.1 L [place] # (Auto) 1.0 H Seg Neutrophils % 79.8 H Seg Neuts % (Manual) Lymphocytes % (Manual) Seg Neutrophils # 9.2 H Seg Neutrophils # Man Lymphocytes # (Manual) ABG pH ABG pO2 ABG HCO3 ABG O2 Saturation ABG Base Excess ABG Hemoglobin Sodium Potassium 7.6 H* Chloride 107.8 H Carbon Dioxide 13 L BUN 107 H Creatinine 13.8 H Glucose POC Glucose Calcium 7.5 L Phosphorus Magnesium Iron TIBC Total Creatine Kinase 268 H Troponin T 0.324 H* NT-Pro-B Natriuret Pep Total Protein 9.1 H Albumin 3.0 L PTH Intact Urine WBC (Auto) Urine Creatinine 11/11/21 11/11/21 11/12/21 23:29 23:29 02:20 WBC RBC Hgb Hct MCH MCHC RDW Lymph % (Auto) [place] % (Auto) Lymph # (Auto) [place] # (Auto) Seg Neutrophils % Seg Neuts % (Manual) Lymphocytes % (Manual) Seg Neutrophils # Seg Neutrophils # Man Lymphocytes # (Manual) ABG pH ABG pO2 ABG HCO3 ABG O2 Saturation ABG Base Excess ABG Hemoglobin Sodium Potassium Chloride Carbon Dioxide BUN Creatinine Glucose POC Glucose Calcium Phosphorus Magnesium Iron 24 L TIBC 157 L Total Creatine Kinase Troponin T NT-Pro-B Natriuret Pep Total Protein Albumin PTH Intact 1174 H Urine WBC (Auto) Urine Creatinine 189.3 H 11/12/21 11/12/21 11/12/21 02:20 02:28 06:55 WBC 20.5 H RBC 3.54 L Hgb 9.4 L Hct 32.3 L MCH 27 L MCHC 29 L RDW 20.0 H Lymph % (Auto) [place] % (Auto) Lymph # (Auto) [place] # (Auto) Seg Neutrophils % Seg Neuts % (Manual) 89.0 H Lymphocytes % (Manual) 0 L Seg Neutrophils # Seg Neutrophils # Man 18.2 H Lymphocytes # (Manual) 0.0 L ABG pH 7.172 L* ABG pO2 100.6 H ABG HCO3 17.4 L ABG O2 Saturation ABG Base Excess -10.6 L ABG Hemoglobin 9.4 L Sodium Potassium Chloride Carbon Dioxide BUN Creatinine Glucose POC Glucose Calcium Phosphorus Magnesium Iron TIBC Total Creatine Kinase Troponin T NT-Pro-B Natriuret Pep Total Protein Albumin PTH Intact Urine WBC (Auto) 12.0 H Urine Creatinine 11/12/21 11/12/21 11/12/21 06:55 09:10 12:01 WBC RBC Hgb Hct MCH MCHC RDW Lymph % (Auto) [place] % (Auto) Lymph # (Auto) [place] # (Auto) Seg Neutrophils % Seg Neuts % (Manual) Lymphocytes % (Manual) Seg Neutrophils # Seg Neutrophils # Man Lymphocytes # (Manual) ABG pH 7.296 L ABG pO2 237.3 H ABG HCO3 ABG O2 Saturation 99.3 H ABG Base Excess -6.0 L ABG Hemoglobin 8.8 L Sodium Potassium 5.5 H D Chloride 107.1 H Carbon Dioxide 19 L BUN 78 H Creatinine 9.4 H Glucose 119 H POC Glucose 106 H Calcium 8.1 L Phosphorus Magnesium Iron TIBC Total Creatine Kinase Troponin T NT-Pro-B Natriuret Pep Total Protein Albumin PTH Intact Urine WBC (Auto) Urine Creatinine 11/12/21 11/12/21 11/12/21 16:46 16:46 22:30 WBC RBC Hgb Hct MCH MCHC RDW Lymph % (Auto) [place] % (Auto) Lymph # (Auto) [place] # (Auto) Seg Neutrophils % Seg Neuts % (Manual) Lymphocytes % (Manual) Seg Neutrophils # Seg Neutrophils # Man Lymphocytes # (Manual) ABG pH ABG pO2 ABG HCO3 ABG O2 Saturation ABG Base Excess ABG Hemoglobin Sodium 146 H Potassium Chloride 108.2 H Carbon Dioxide 21 L BUN 66 H Creatinine 9.8 H Glucose 125 H POC Glucose Calcium 7.8 L Phosphorus Magnesium Iron TIBC Total Creatine Kinase Troponin T 0.319 H* 0.313 H* NT-Pro-B Natriuret Pep Total Protein Albumin PTH Intact Urine WBC (Auto) Urine Creatinine 11/12/21 11/12/21 11/13/21 23:18 Unknown 04:00 WBC 17.2 H RBC 3.09 L Hgb 8.4 L Hct 27.5 L MCH 27 L MCHC 30 L RDW 19.6 H Lymph % (Auto) [place] % (Auto) Lymph # (Auto) [place] # (Auto) Seg Neutrophils % Seg Neuts % (Manual) Lymphocytes % (Manual) Seg Neutrophils # Seg Neutrophils # Man Lymphocytes # (Manual) ABG pH ABG pO2 ABG HCO3 ABG O2 Saturation ABG Base Excess ABG Hemoglobin Sodium Potassium Chloride Carbon Dioxide BUN Creatinine Glucose POC Glucose 120 H Calcium Phosphorus Magnesium Iron TIBC Total Creatine Kinase Troponin T NT-Pro-B Natriuret Pep 3674 H Total Protein Albumin PTH Intact Urine WBC (Auto) Urine Creatinine 11/13/21 11/13/21 11/13/21 04:00 04:00 05:23 WBC RBC Hgb Hct MCH MCHC RDW Lymph % (Auto) [place] % (Auto) Lymph # (Auto) [place] # (Auto) Seg Neutrophils % Seg Neuts % (Manual) Lymphocytes % (Manual) Seg Neutrophils # Seg Neutrophils # Man Lymphocytes # (Manual) ABG pH 7.274 L ABG pO2 93.2 H ABG HCO3 ABG O2 Saturation ABG Base Excess -3.9 L ABG Hemoglobin 8.2 L Sodium Potassium Chloride Carbon Dioxide 21 L BUN 71 H Creatinine 9.9 H Glucose 128 H POC Glucose 117 H Calcium 7.7 L Phosphorus 5.10 H Magnesium 1.60 L Iron TIBC Total Creatine Kinase Troponin T NT-Pro-B Natriuret Pep Total Protein Albumin PTH Intact Urine WBC (Auto) Urine Creatinine 11/13/21 11/13/21 11/14/21 16:20 23:31 04:10 WBC RBC Hgb Hct MCH MCHC RDW Lymph % (Auto) [place] % (Auto) Lymph # (Auto) [place] # (Auto) Seg Neutrophils % Seg Neuts % (Manual) Lymphocytes % (Manual) Seg Neutrophils # Seg Neutrophils # Man Lymphocytes # (Manual) ABG pH ABG pO2 107.1 H ABG HCO3 ABG O2 Saturation ABG Base Excess ABG Hemoglobin 6.5 L Sodium Potassium Chloride Carbon Dioxide BUN Creatinine Glucose POC Glucose 125 H 123 H Calcium Phosphorus Magnesium Iron TIBC Total Creatine Kinase Troponin T NT-Pro-B Natriuret Pep Total Protein Albumin PTH Intact Urine WBC (Auto) Urine Creatinine 11/14/21 11/14/21 11/14/21 06:30 06:30 15:00 WBC 11.2 H RBC 3.03 L Hgb 8.1 L Hct 26.6 L MCH 27 L MCHC 30 L RDW 19.3 H Lymph % (Auto) [place] % (Auto) Lymph # (Auto) [place] # (Auto) Seg Neutrophils % Seg Neuts % (Manual) Lymphocytes % (Manual) Seg Neutrophils # Seg Neutrophils # Man Lymphocytes # (Manual) ABG pH ABG pO2 ABG HCO3 ABG O2 Saturation ABG Base Excess ABG Hemoglobin Sodium Potassium 3.0 L D 3.4 L Chloride Carbon Dioxide BUN 41 H Creatinine 7.0 H Glucose 107 H POC Glucose Calcium 7.5 L Phosphorus Magnesium 1.60 L Iron TIBC Total Creatine Kinase Troponin T NT-Pro-B Natriuret Pep Total Protein Albumin PTH Intact Urine WBC (Auto) Urine Creatinine 11/14/21 11/15/21 11/15/21 17:24 04:00 04:00 WBC 11.3 H RBC 3.00 L Hgb 8.1 L Hct 26.3 L MCH 27 L MCHC 31 L RDW 19.2 H Lymph % (Auto) [place] % (Auto) Lymph # (Auto) [place] # (Auto) Seg Neutrophils % Seg Neuts % (Manual) Lymphocytes % (Manual) Seg Neutrophils # Seg Neutrophils # Man Lymphocytes # (Manual) ABG pH ABG pO2 ABG HCO3 ABG O2 Saturation ABG Base Excess ABG Hemoglobin Sodium Potassium 3.4 L Chloride Carbon Dioxide BUN 32 H Creatinine 5.9 H Glucose 117 H POC Glucose 124 H Calcium 8.3 L Phosphorus Magnesium Iron TIBC Total Creatine Kinase Troponin T NT-Pro-B Natriuret Pep Total Protein Albumin PTH Intact Urine WBC (Auto) Urine Creatinine Allied health notes reviewed: nursing
--- NOTE | 2021-11-15 11:46 | Progress Note ---
<RUFUS ALVAREZ - Last Filed: 11/15/21 17:54> Assessment and Plan Assessment and plan: This is a 56-year-old male with DM, HTN, obesity, currently bedbound and past intubations admitted with acute hypoxic respiratory failure and acute renal failure Hospital course to date: 11/12: Overnight patient received a dialysis catheter and was initiated on dialysis. Iglesias catheter was also placed. Antibiotics discontinued. proBNP pending. Decrease in FiO2 related to ABG. Echocardiogram pending. Patient given X1 for potassium 5.5 and nutrition consulted for tube feedings. updated brother at bedside 11/13: Propofol letter for sedation as patient seems restless on the ventilator only on fentanyl. HD scheduled for today. [facility] plans to conduct PSV possibly Sunday. 11/14: Tolerated HD overnight, 2L removed. Plan for possible HD again today. Patient is tolerating PST today on low dose fentanyl, plan for possible extubation tomorrow. 11/15: SANA overnight. Remains on the vent and on low dose sedation. Continue to tolerate HD. Plan for PST and possible extubation today Neuro: Acute metabolic encephalopathy -Fentanyl and prop drip -RASS goal 0 to -1 -Avoid delirium -Reorientation as needed -Maintain sleep-wake cycle -aspiration/seizure precautions -As needed analgesia -Patient will open eyes to verbal stimuli -Consider neurology consult Cardiac: h/o HTN, elevated troponins -Cardiology consulted, appreciate recommendations -Blood pressure monitoring per protocol -S/p vasopressor support -Echocardiogram shows ejection fraction greater than 70 Respiratory: Acute hypoxic respiratory failure, ? [facility] consulted, appreciate recommendations -Intubated in the emergency department with a 8.00 ETT at 24 the lips -A.m. vent settings:AC/PRVC rate 22, tidal 550, PEEP 6, FiO2 40% -See RT notes for titration -A.m. ABG and CXR noted -VAP bundle -SPO2 monitoring GI: Protin calorie malnutrition, Morbid obesity -Continue enteral nutrition -NTR consulted for tube feedings -BR: Colace : Acute Renal Failure -FeNa 1.04% indicating either ATN or prerenal state -Nephrology consulted, appreciate recommendations -Vas-Cath placed at HD initiated 11/12 -HD per nephrology -Strict intake and output -Renally dose medications -Avoid nephrotoxic medications -Daily weights -Renal ultrasound pending -Trend BMP -Repeat magnesium Endo: h/o DM -Avoid hypoglycemia -SSI -Accu-Cheks q. 6 -Hemoglobin A1c 5.7 GI/DVT Prophylaxis - PPI- Pepcid - Heparin SubQ The high probability of a clinically significant, sudden or life threatening deterioration of the [multi] system(s) required my full and direct attention, intervention and personal management. The aggregate critical care time was [60] minutes. This time is in addition to time spent performing reported procedures but includes the following: [x] Data Review and interpretation [x] Patient assessment and monitoring of vital signs [x] Documentation [x] Medication orders and management Disposition Plan: icu Total Time Spent with Patient (Minutes): 60 History Interval history: Patient seen and examined at the bedside. Intubated and on low dose sedation, fully awake and following commands. SANA overnight Hospitalist Physical - Constitutional Vitals: Temp Pulse Resp BP Pulse Ox 98 F 65 22 102/52 95 11/15/21 08:00 11/15/21 11:00 11/15/21 11:00 11/15/21 11:00 11/15/21 11:00 General appearance: Present: no acute distress, obese, other (intubated, while awake on low dose sedation) - EENT Eyes: Present: PERRL, EOM intact ENT: hearing intact - Neck Neck: Present: normal ROM - Respiratory Respiratory effort: normal Respiratory: bilateral: rhonchi - Cardiovascular Rhythm: regular Heart Sounds: Present: S1 & S2 - Extremities Extremities: no ischemia, pulses intact, pulses symmetrical Extremity abnormal: edema - Peripheral Assessment Generalized Edema Type: Non-pitting Edema Degree: 2+ Capillary Refill: < 3 seconds Skin Temperature: Warm Peripheral Pulses: within normal limits - Abdominal General gastrointestinal: soft, non-distended, normal bowel sounds - Integumentary Integumentary: Present: warm, dry - Psychiatric Psychiatric: appropriate mood/affect, cooperative - Neurologic Neurologic: moves all extremities - Allied Health Allied health notes reviewed: nursing HEART Score - HEART Score Troponin: Troponin T 0.313 ng/mL (0.00-0.029) H* 11/12/21 22:30 Results - Labs CBC & Chem 7: 11/15/21 04:00 11/15/21 04:00 Labs: Laboratory Last Values WBC 11.3 K/mm3 (4.5-11.0) H 11/15/21 04:00 RBC 3.00 M/mm3 (3.65-5.03) L 11/15/21 04:00 Hgb 8.1 gm/dl (11.8-15.2) L 11/15/21 04:00 Hct 26.3 % (35.5-45.6) L 11/15/21 04:00 MCV 88 fl (84-94) 11/15/21 04:00 MCH 27 pg (28-32) L 11/15/21 04:00 MCHC 31 % (32-34) L 11/15/21 04:00 RDW 19.2 % (13.2-15.2) H 11/15/21 04:00 Plt Count 221 K/mm3 (140-440) 11/15/21 04:00 Lymph % (Auto) 10.0 % (13.4-35.0) L 11/11/21 19:49 [place] % (Auto) 8.8 % (0.0-7.3) H 11/11/21 19:49 Eos % (Auto) 0.9 % (0.0-4.3) 11/11/21 19:49 Baso % (Auto) 0.5 % (0.0-1.8) 11/11/21 19:49 Lymph # (Auto) 1.1 K/mm3 (1.2-5.4) L 11/11/21 19:49 [place] # (Auto) 1.0 K/mm3 (0.0-0.8) H 11/11/21 19:49 Eos # (Auto) 0.1 K/mm3 (0.0-0.4) 11/11/21 19:49 Baso # (Auto) 0.1 K/mm3 (0.0-0.1) 11/11/21 19:49 Add Manual Diff Complete 11/12/21 06:55 Total Counted 100 11/12/21 06:55 Seg Neutrophils % Broadcast Checker 11/12/21 06:55 Seg Neuts % (Manual) 89.0 % (40.0-70.0) H 11/12/21 06:55 Band Neutrophils % 5.0 % 11/12/21 06:55 Lymphocytes % (Manual) 0 % (13.4-35.0) L 11/12/21 06:55 Reactive Lymphs % (Man) 0 % 11/12/21 06:55 Monocytes % (Manual) 3.0 % (0.0-7.3) 11/12/21 06:55 Eosinophils % (Manual) 0 % (0.0-4.3) 11/12/21 06:55 Basophils % (Manual) 0 % (0.0-1.8) 11/12/21 06:55 Metamyelocytes % 3.0 % 11/12/21 06:55 Myelocytes % 0 % 11/12/21 06:55 Promyelocytes % 0 % 11/12/21 06:55 Blast Cells % 0 % 11/12/21 06:55 Nucleated RBC % Not Reportable 11/12/21 06:55 Seg Neutrophils # 9.2 K/mm3 (1.8-7.7) H 11/11/21 19:49 Seg Neutrophils # Man 18.2 K/mm3 (1.8-7.7) H 11/12/21 06:55 Band Neutrophils # 1.0 K/mm3 11/12/21 06:55 Lymphocytes # (Manual) 0.0 K/mm3 (1.2-5.4) L 11/12/21 06:55 Abs React Lymphs (Man) 0.0 K/mm3 11/12/21 06:55 Monocytes # (Manual) 0.6 K/mm3 (0.0-0.8) 11/12/21 06:55 Eosinophils # (Manual) 0.0 K/mm3 (0.0-0.4) 11/12/21 06:55 Basophils # (Manual) 0.0 K/mm3 (0.0-0.1) 11/12/21 06:55 Metamyelocytes # 0.6 K/mm3 11/12/21 06:55 Myelocytes # 0.0 K/mm3 11/12/21 06:55 Promyelocytes # 0.0 K/mm3 11/12/21 06:55 Blast Cells # 0.0 K/mm3 11/12/21 06:55 WBC Morphology Not Reportable 11/12/21 06:55 Hypersegmented Neuts Not Reportable 11/12/21 06:55 Hyposegmented Neuts Not Reportable 11/12/21 06:55 Hypogranular Neuts Not Reportable 11/12/21 06:55 Smudge Cells Not Reportable 11/12/21 06:55 Toxic Granulation 1+ 11/12/21 06:55 Toxic Vacuolation Not Reportable 11/12/21 06:55 Dohle Bodies Not Reportable 11/12/21 06:55 Pelger-Huet Anomaly Not Reportable 11/12/21 06:55 Lissa Rods Not Reportable 11/12/21 06:55 Platelet Estimate Consistent w auto 11/12/21 06:55 Clumped Platelets Not Reportable 11/12/21 06:55 Plt Clumps, EDTA Not Reportable 11/12/21 06:55 Large Platelets Not Reportable 11/12/21 06:55 Giant Platelets Not Reportable 11/12/21 06:55 Platelet Satelliting Not Reportable 11/12/21 06:55 Plt Morphology Comment Not Reportable 11/12/21 06:55 RBC Morphology Normal 11/12/21 06:55 Dimorphic RBCs Not Reportable 11/12/21 06:55 Polychromasia Not Reportable 11/12/21 06:55 Hypochromasia Not Reportable 11/12/21 06:55 Poikilocytosis Not Reportable 11/12/21 06:55 Anisocytosis Not Reportable 11/12/21 06:55 Microcytosis Not Reportable 11/12/21 06:55 Macrocytosis Not Reportable 11/12/21 06:55 Spherocytes Not Reportable 11/12/21 06:55 Pappenheimer Bodies Not Reportable 11/12/21 06:55 Sickle Cells Not Reportable 11/12/21 06:55 Target Cells Not Reportable 11/12/21 06:55 Tear Drop Cells Not Reportable 11/12/21 06:55 Ovalocytes Not Reportable 11/12/21 06:55 Helmet Cells Not Reportable 11/12/21 06:55 [place] Bodies Not Reportable 11/12/21 06:55 [place] Rings Not Reportable 11/12/21 06:55 [place] Cells Not Reportable 11/12/21 06:55 Bite Cells Not Reportable 11/12/21 06:55 Crenated Cell Not Reportable 11/12/21 06:55 Elliptocytes Not Reportable 11/12/21 06:55 Acanthocytes (Spur) Not Reportable 11/12/21 06:55 Rouleaux Not Reportable 11/12/21 06:55 Hemoglobin C Crystals Not Reportable 11/12/21 06:55 Schistocytes Not Reportable 11/12/21 06:55 Malaria parasites Not Reportable 11/12/21 06:55 Nam Bodies Not Reportable 11/12/21 06:55 Hem Pathologist Commnt No 11/12/21 06:55 ABG pH 7.409 pH Units (7.350-7.450) 11/14/21 04:10 ABG pCO2 40.0 mm Hg 11/14/21 04:10 ABG pO2 107.1 mm Hg (80.0-90.0) H 11/14/21 04:10 ABG HCO3 24.7 mmol/L (20.0-26.0) 11/14/21 04:10 ABG O2 Saturation 97.9 % (95.0-99.0) 11/14/21 04:10 ABG O2 Content 9.0 (0.0-44) 11/14/21 04:10 ABG Base Excess 0.0 mmol/L (-2.0-3.0) 11/14/21 04:10 ABG Hemoglobin 6.5 gm/dl (14.0-18.0) L 11/14/21 04:10 ABG Carboxyhemoglobin 1.1 % (0.0-5.0) 11/14/21 04:10 ABG Methemoglobin 0.4 % (0.0-1.5) 11/14/21 04:10 Oxyhemoglobin 96.4 % (95.0-99.0) 11/14/21 04:10 FiO2 45 % 11/14/21 04:10 Sodium 140 mmol/L (137-145) 11/15/21 04:00 Potassium 3.4 mmol/L (3.6-5.0) L 11/15/21 04:00 Chloride 100.6 mmol/L (98-107) 11/15/21 04:00 Carbon Dioxide 24 mmol/L (22-30) 11/15/21 04:00 Anion Gap 19 mmol/L 11/15/21 04:00 BUN 32 mg/dL (9-20) H 11/15/21 04:00 Creatinine 5.9 mg/dL (0.8-1.3) H 11/15/21 04:00 Estimated GFR 12 ml/min 11/15/21 04:00 BUN/Creatinine Ratio 5 % 11/15/21 04:00 Glucose 117 mg/dL (75-100) H 11/15/21 04:00 POC Glucose 104 mg/dL (70-105) 11/15/21 05:31 Hemoglobin A1c 5.7 % (4-6) 11/12/21 06:55 Lactic Acid 0.90 mmol/L (0.7-2.0) 11/11/21 19:49 Calcium 8.3 mg/dL (8.4-10.2) L 11/15/21 04:00 Phosphorus 3.10 mg/dL (2.5-4.5) 11/15/21 04:00 Magnesium 1.90 mg/dL (1.7-2.3) 11/14/21 15:00 Iron 24 ug/dL (49-181) L 11/11/21 23:29 TIBC 157 mcg/dL (250-450) L 11/11/21 23:29 Total Bilirubin 0.40 mg/dL (0.1-1.2) 11/11/21 19:49 AST 10 units/L (5-40) 11/11/21 19:49 ALT 7 units/L (7-56) 11/11/21 19:49 Alkaline Phosphatase 111 units/L (35-129) 11/11/21 19:49 Total Creatine Kinase 268 units/L (55-170) H 11/11/21 23:29 Troponin T 0.313 ng/mL (0.00-0.029) H* 11/12/21 22:30 NT-Pro-B Natriuret Pep 3674 pg/mL (0-900) H 11/12/21 Unknown Total Protein 9.1 g/dL (6.3-8.2) H 11/11/21 19:49 Albumin 3.0 g/dL (3.9-5) L 11/11/21 19:49 Albumin/Globulin Ratio 0.5 % 11/11/21 19:49 Triglycerides 79 mg/dL (2-149) 11/11/21 19:49 Cholesterol 146 mg/dL (50-199) 11/11/21 19:49 LDL Cholesterol Direct 85 mg/dL (50-130) 11/11/21 19:49 HDL Cholesterol 43 mg/dL (40-59) 11/11/21 19:49 Cholesterol/HDL Ratio 3.39 % 11/11/21 19:49 PTH Intact 1174 pg/mL (15-65) H 11/11/21 23:29 Urine Color Yellow (Yellow) 11/12/21 02:20 Urine Turbidity Cloudy (Clear) 11/12/21 02:20 Urine pH 5.0 (5.0-7.0) 11/12/21 02:20 Ur Specific [place] 1.013 (1.003-1.030) 11/12/21 02:20 Urine Protein >500 mg/dL (Negative) 11/12/21 02:20 Urine Glucose (UA) Neg mg/dL (Negative) 11/12/21 02:20 Urine Ketones Neg mg/dL (Negative) 11/12/21 02:20 Urine Blood Sm (Negative) 11/12/21 02:20 Urine Nitrite Neg (Negative) 11/12/21 02:20 Urine Bilirubin Neg (Negative) 11/12/21 02:20 Urine Urobilinogen < 2.0 mg/dL (<2.0) 11/12/21 02:20 Ur Leukocyte Esterase Tr (Negative) 11/12/21 02:20 Urine WBC (Auto) 12.0 /HPF (0.0-6.0) H 11/12/21 02:20 Urine RBC (Auto) 4.0 /HPF (0.0-6.0) 11/12/21 02:20 U Epithel Cells (Auto) 9.0 /HPF (0-13.0) 11/12/21 02:20 Urine Bacteria (Auto) 2+ /HPF (Negative) 11/12/21 02:20 Urine Mucus Few /HPF 11/12/21 02:20 Urine Yeast (Budding) 3+ /HPF 11/12/21 02:20 Urine Eosinophils None seen (None Seen) 11/12/21 02:20 Urine Creatinine 189.3 mg/dL (0.1-20.0) H 11/12/21 02:20 Urine Sodium 30 mmol/L 11/12/21 02:20 Hepatitis A IgM Ab Non-reactive (NonReactive) 11/12/21 04:45 Hep Bs Antigen Non-reactive (Negative) 11/12/21 04:45 Hep B Core IgM Ab Non-reactive (NonReactive) 11/12/21 04:45 Hepatitis C Antibody Non-reactive (NonReactive) 11/12/21 04:45 Microbiology: Microbiology 11/12/21 02:20 Urine,Clean Catch Urine Culture - Final Enterococcus Faecalis 11/11/21 02:28 Tracheal Aspirate Sputum Culture - Final Iglesias/IV: Voiding Method Indwelling Catheter Active Medications - Current Medications Current Medications: Generic Name Dose Route Start Last Admin Trade Name Freq PRN Reason Stop Dose Admin Acetaminophen 650 mg 11/11/21 22:40 Acetaminophen 325 Mg Tab PO Q4H PRN Pain MILD(1-3)/Fever >100.5/SOTO Albuterol 2.5 mg 11/11/21 22:40 Albuterol 2.5 Mg/3 Ml Nebu IH Q3HRT PRN Shortness Of Breath Aspirin 325 mg 11/12/21 10:00 11/15/21 09:47 Aspirin 325 Mg Tab PO 325 mg QDAY BAO Administration Atorvastatin Calcium 40 mg 11/12/21 22:00 11/14/21 22:00 Atorvastatin 40 Mg Tab PO 40 mg QHS BAO Administration Dextrose 0 ml 11/11/21 23:03 Dextrose 10% *Hypoglycemia IV PRN PRN Hypoglycemia Docusate Sodium 100 mg 11/12/21 22:00 11/15/21 09:47 Docusate Sodium 100 Mg/10 Ml Oral Liqd PO 100 mg BID BAO Administration Famotidine 20 mg 11/13/21 10:00 11/15/21 09:47 Famotidine 20 Mg Tab PO 20 mg QDAY BAO Administration Fentanyl 50 mcg 11/11/21 20:56 11/12/21 00:12 Fentanyl 100 Mcg/2 Ml Inj IV 50 mcg Q10MIN PRN Administration ANALGESIA Heparin Sodium (Porcine) 5,000 unit 11/12/21 10:00 11/15/21 09:47 Heparin 5,000 Unit/1 Ml Vial SUB-Q 5,000 unit Q12HR BAO Administration Hydrophilic Ointment 1 applic 11/11/21 20:56 Lip Therapy Vaseline TP Q2HR PRN Dry Lips Fentanyl Citrate 2,000 mcg in 100 mls @ 13.608 mls/hr 11/11/21 21:00 11/15/21 11:02 Fentanyl Drip Premix IV 0 mcg/kg/hr TITR BAO 0 mls/hr Titration Protocol 1 MCG/KG/HR NORepinephrine/NS 8 MG-250 ML 8 mg in 250 mls @ 3.75 mls/hr 11/11/21 23:00 11/14/21 02:49 Norepinephrine/Ns 8 Mg-250 Ml (Double Conc) IV 4 mcg/min TITRATE BAO 7.5 mls/hr Administration Protocol 2 MCG/MIN Propofol 1,000 mg in 100 mls @ 8.166 mls/hr 11/13/21 09:00 11/15/21 11:00 Diprivan 10 Mg/Ml IV 0 mcg/kg/min TITR BAO 0 mls/hr Titration Protocol 5 MCG/KG/MIN Insulin Human Lispro 0 unit 11/12/21 00:00 11/15/21 07:25 Insulin Lispro 100 Unit/Ml SUB-Q Not Given Q6HR BAO Protocol Multi-Ingred Cream/Lotion/Oil/Oint 1 applic 11/11/21 20:56 Mineral Oil/Petrolatum, White Ophth Oint 3.5 Gm OU Q4HR PRN Dry Eye(s) Ondansetron HCl 4 mg 11/11/21 22:40 Ondansetron 4 Mg/2 Ml Inj IV Q8H PRN Nausea And Vomiting Sodium Chloride 10 ml 11/12/21 10:00 11/14/21 20:55 Sodium Chloride 0.9% 10 Ml Flush Syringe IV 10 ml BID BAO Administration Sodium Chloride 10 ml 11/11/21 22:40 Sodium Chloride 0.9% 10 Ml Flush Syringe IV PRN PRN LINE FLUSH Nutrition/Malnutrition Assess - Dietary Evaluation Nutrition/Malnutrition Findings: Nutrition Notes Start: 11/12/21 16:08 Freq: Status: Active Protocol: Document 11/14/21 15:39 TODD (Rec: 11/14/21 15:45 [facility] [id number]) Nutrition Notes Initial or Follow up Reassessment Current Diagnosis Diabetes,Hypertension, Respiratory Failure Other Pertinent Diagnosis Acute renal failure (on HD), pneu Current Diet TF - Nepro at 50ml/hr Labs/Tests K 3 BUN 41 Cr 7 Mg 1.6 Pertinent Medications Mg sulfate x 1 dose, Levophed gtt, 20mEq KCl x 1 dose Height 5 ft 9 in Weight 272.2 kg [place] Body Weight (kg) 72.72 BMI 88.6 Weight Status Morbidly Obese Subjective/Other Information Observed Nepro infusing at goal rate. Per RN, pt tolerating TF. Pt remains on vent support. Percent of energy/protein needs met: 99% energy 53% pro Burn Absent Trauma Absent #1 Nutrition Diagnosis Inadequate oral intake Diagnosis Progress(for reassessment Continues documentation) Is patient on ventilator? Yes Is Patient Ambulatory and/or Out of Bed No REE-([place] Jeor-confined to bed) 4258.860 Kcal/Kg value to use for calculation 8 Approximate Energy Requirements Using 2178 kcal/Kg Additional Notes Pro needs up to 2.5g/kg IBW: 182g/day Fluid needs 1-1.5L/day Nutrition Intervention Nutrition Support: Continue Nepro at 50ml/hr with 200ml water flush q4h. Kcal 2,160 Protein (gm) 97 Carbohydrates (gm) 193 Fat (gm) 115 Fluid (mL) 872 Fiber (gm) 15 Goal #1 TF tolerance Goal #2 TF to meet at least 75% energy and pro needs Follow-Up By: 11/21/21 Additional Comments F/U: stable TF, vent status, wt <AMADO YODER - Last Filed: 11/15/21 18:59> Assessment and Plan Assessment and plan: I saw and evaluated the patient. I agree with the findings and the plan of care as documented in the Nurse Practitioner's~note, with the following corrections and additions. Hospitalist Physical - Constitutional Vitals: Temp Pulse Resp BP Pulse Ox 99 F 69 14 132/73 99 11/15/21 16:00 11/15/21 16:00 11/15/21 16:00 11/15/21 16:00 11/15/21 16:00 HEART Score - HEART Score Troponin: Troponin T 0.313 ng/mL (0.00-0.029) H* 11/12/21 22:30 Results - Labs CBC & Chem 7: 11/15/21 04:00 11/15/21 04:00 Labs: Laboratory Last Values WBC 11.3 K/mm3 (4.5-11.0) H 11/15/21 04:00 RBC 3.00 M/mm3 (3.65-5.03) L 11/15/21 04:00 Hgb 8.1 gm/dl (11.8-15.2) L 11/15/21 04:00 Hct 26.3 % (35.5-45.6) L 11/15/21 04:00 MCV 88 fl (84-94) 11/15/21 04:00 MCH 27 pg (28-32) L 11/15/21 04:00 MCHC 31 % (32-34) L 11/15/21 04:00 RDW 19.2 % (13.2-15.2) H 11/15/21 04:00 Plt Count 221 K/mm3 (140-440) 11/15/21 04:00 Lymph % (Auto) 10.0 % (13.4-35.0) L 11/11/21 19:49 [place] % (Auto) 8.8 % (0.0-7.3) H 11/11/21 19:49 Eos % (Auto) 0.9 % (0.0-4.3) 11/11/21 19:49 Baso % (Auto) 0.5 % (0.0-1.8) 11/11/21 19:49 Lymph # (Auto) 1.1 K/mm3 (1.2-5.4) L 11/11/21 19:49 [place] # (Auto) 1.0 K/mm3 (0.0-0.8) H 11/11/21 19:49 Eos # (Auto) 0.1 K/mm3 (0.0-0.4) 11/11/21 19:49 Baso # (Auto) 0.1 K/mm3 (0.0-0.1) 11/11/21 19:49 Add Manual Diff Complete 11/12/21 06:55 Total Counted 100 11/12/21 06:55 Seg Neutrophils % Broadcast Checker 11/12/21 06:55 Seg Neuts % (Manual) 89.0 % (40.0-70.0) H 11/12/21 06:55 Band Neutrophils % 5.0 % 11/12/21 06:55 Lymphocytes % (Manual) 0 % (13.4-35.0) L 11/12/21 06:55 Reactive Lymphs % (Man) 0 % 11/12/21 06:55 Monocytes % (Manual) 3.0 % (0.0-7.3) 11/12/21 06:55 Eosinophils % (Manual) 0 % (0.0-4.3) 11/12/21 06:55 Basophils % (Manual) 0 % (0.0-1.8) 11/12/21 06:55 Metamyelocytes % 3.0 % 11/12/21 06:55 Myelocytes % 0 % 11/12/21 06:55 Promyelocytes % 0 % 11/12/21 06:55 Blast Cells % 0 % 11/12/21 06:55 Nucleated RBC % Not Reportable 11/12/21 06:55 Seg Neutrophils # 9.2 K/mm3 (1.8-7.7) H 11/11/21 19:49 Seg Neutrophils # Man 18.2 K/mm3 (1.8-7.7) H 11/12/21 06:55 Band Neutrophils # 1.0 K/mm3 11/12/21 06:55 Lymphocytes # (Manual) 0.0 K/mm3 (1.2-5.4) L 11/12/21 06:55 Abs React Lymphs (Man) 0.0 K/mm3 11/12/21 06:55 Monocytes # (Manual) 0.6 K/mm3 (0.0-0.8) 11/12/21 06:55 Eosinophils # (Manual) 0.0 K/mm3 (0.0-0.4) 11/12/21 06:55 Basophils # (Manual) 0.0 K/mm3 (0.0-0.1) 11/12/21 06:55 Metamyelocytes # 0.6 K/mm3 11/12/21 06:55 Myelocytes # 0.0 K/mm3 11/12/21 06:55 Promyelocytes # 0.0 K/mm3 11/12/21 06:55 Blast Cells # 0.0 K/mm3 11/12/21 06:55 WBC Morphology Not Reportable 11/12/21 06:55 Hypersegmented Neuts Not Reportable 11/12/21 06:55 Hyposegmented Neuts Not Reportable 11/12/21 06:55 Hypogranular Neuts Not Reportable 11/12/21 06:55 Smudge Cells Not Reportable 11/12/21 06:55 Toxic Granulation 1+ 11/12/21 06:55 Toxic Vacuolation Not Reportable 11/12/21 06:55 Dohle Bodies Not Reportable 11/12/21 06:55 Pelger-Huet Anomaly Not Reportable 11/12/21 06:55 Lissa Rods Not Reportable 11/12/21 06:55 Platelet Estimate Consistent w auto 11/12/21 06:55 Clumped Platelets Not Reportable 11/12/21 06:55 Plt Clumps, EDTA Not Reportable 11/12/21 06:55 Large Platelets Not Reportable 11/12/21 06:55 Giant Platelets Not Reportable 11/12/21 06:55 Platelet Satelliting Not Reportable 11/12/21 06:55 Plt Morphology Comment Not Reportable 11/12/21 06:55 RBC Morphology Normal 11/12/21 06:55 Dimorphic RBCs Not Reportable 11/12/21 06:55 Polychromasia Not Reportable 11/12/21 06:55 Hypochromasia Not Reportable 11/12/21 06:55 Poikilocytosis Not Reportable 11/12/21 06:55 Anisocytosis Not Reportable 11/12/21 06:55 Microcytosis Not Reportable 11/12/21 06:55 Macrocytosis Not Reportable 11/12/21 06:55 Spherocytes Not Reportable 11/12/21 06:55 Pappenheimer Bodies Not Reportable 11/12/21 06:55 Sickle Cells Not Reportable 11/12/21 06:55 Target Cells Not Reportable 11/12/21 06:55 Tear Drop Cells Not Reportable 11/12/21 06:55 Ovalocytes Not Reportable 11/12/21 06:55 Helmet Cells Not Reportable 11/12/21 06:55 [place] Bodies Not Reportable 11/12/21 06:55 [place] Rings Not Reportable 11/12/21 06:55 [place] Cells Not Reportable 11/12/21 06:55 Bite Cells Not Reportable 11/12/21 06:55 Crenated Cell Not Reportable 11/12/21 06:55 Elliptocytes Not Reportable 11/12/21 06:55 Acanthocytes (Spur) Not Reportable 11/12/21 06:55 Rouleaux Not Reportable 11/12/21 06:55 Hemoglobin C Crystals Not Reportable 11/12/21 06:55 Schistocytes Not Reportable 11/12/21 06:55 Malaria parasites Not Reportable 11/12/21 06:55 Nam Bodies Not Reportable 11/12/21 06:55 Hem Pathologist Commnt No 11/12/21 06:55 ABG pH 7.335 pH Units (7.350-7.450) L 11/15/21 16:20 ABG pCO2 50.2 mm Hg 11/15/21 16:20 ABG pO2 254.0 mm Hg (80.0-90.0) H 11/15/21 16:20 ABG HCO3 26.2 mmol/L (20.0-26.0) H 11/15/21 16:20 ABG O2 Saturation 99.4 % (95.0-99.0) H 11/15/21 16:20 ABG O2 Content 12.3 (0.0-44) 11/15/21 16:20 ABG Base Excess 0.1 mmol/L (-2.0-3.0) 11/15/21 16:20 ABG Hemoglobin 8.5 gm/dl (14.0-18.0) L 11/15/21 16:20 ABG Carboxyhemoglobin 1.0 % (0.0-5.0) 11/15/21 16:20 ABG Methemoglobin 0.5 % (0.0-1.5) 11/15/21 16:20 Oxyhemoglobin 98.0 % (95.0-99.0) 11/15/21 16:20 FiO2 100 % 11/15/21 16:20 Sodium 140 mmol/L (137-145) 11/15/21 04:00 Potassium 3.4 mmol/L (3.6-5.0) L 11/15/21 04:00 Chloride 100.6 mmol/L (98-107) 11/15/21 04:00 Carbon Dioxide 24 mmol/L (22-30) 11/15/21 04:00 Anion Gap 19 mmol/L 11/15/21 04:00 BUN 32 mg/dL (9-20) H 11/15/21 04:00 Creatinine 5.9 mg/dL (0.8-1.3) H 11/15/21 04:00 Estimated GFR 12 ml/min 11/15/21 04:00 BUN/Creatinine Ratio 5 % 11/15/21 04:00 Glucose 117 mg/dL (75-100) H 11/15/21 04:00 POC Glucose 132 mg/dL (70-105) H 11/15/21 13:58 Hemoglobin A1c 5.7 % (4-6) 11/12/21 06:55 Lactic Acid 0.90 mmol/L (0.7-2.0) 11/11/21 19:49 Calcium 8.3 mg/dL (8.4-10.2) L 11/15/21 04:00 Phosphorus 3.10 mg/dL (2.5-4.5) 11/15/21 04:00 Magnesium 1.90 mg/dL (1.7-2.3) 11/14/21 15:00 Iron 24 ug/dL (49-181) L 11/11/21 23:29 TIBC 157 mcg/dL (250-450) L 11/11/21 23:29 Total Bilirubin 0.40 mg/dL (0.1-1.2) 11/11/21 19:49 AST 10 units/L (5-40) 11/11/21 19:49 ALT 7 units/L (7-56) 11/11/21 19:49 Alkaline Phosphatase 111 units/L (35-129) 11/11/21 19:49 Total Creatine Kinase 268 units/L (55-170) H 11/11/21 23:29 Troponin T 0.313 ng/mL (0.00-0.029) H* 11/12/21 22:30 NT-Pro-B Natriuret Pep 3674 pg/mL (0-900) H 11/12/21 Unknown Total Protein 9.1 g/dL (6.3-8.2) H 11/11/21 19:49 Albumin 3.0 g/dL (3.9-5) L 11/11/21 19:49 Albumin/Globulin Ratio 0.5 % 11/11/21 19:49 Triglycerides 79 mg/dL (2-149) 11/11/21 19:49 Cholesterol 146 mg/dL (50-199) 11/11/21 19:49 LDL Cholesterol Direct 85 mg/dL (50-130) 11/11/21 19:49 HDL Cholesterol 43 mg/dL (40-59) 11/11/21 19:49 Cholesterol/HDL Ratio 3.39 % 11/11/21 19:49 PTH Intact 1174 pg/mL (15-65) H 11/11/21 23:29 Urine Color Yellow (Yellow) 11/12/21 02:20 Urine Turbidity Cloudy (Clear) 11/12/21 02:20 Urine pH 5.0 (5.0-7.0) 11/12/21 02:20 Ur Specific [place] 1.013 (1.003-1.030) 11/12/21 02:20 Urine Protein >500 mg/dL (Negative) 11/12/21 02:20 Urine Glucose (UA) Neg mg/dL (Negative) 11/12/21 02:20 Urine Ketones Neg mg/dL (Negative) 11/12/21 02:20 Urine Blood Sm (Negative) 11/12/21 02:20 Urine Nitrite Neg (Negative) 11/12/21 02:20 Urine Bilirubin Neg (Negative) 11/12/21 02:20 Urine Urobilinogen < 2.0 mg/dL (<2.0) 11/12/21 02:20 Ur Leukocyte Esterase Tr (Negative) 11/12/21 02:20 Urine WBC (Auto) 12.0 /HPF (0.0-6.0) H 11/12/21 02:20 Urine RBC (Auto) 4.0 /HPF (0.0-6.0) 11/12/21 02:20 U Epithel Cells (Auto) 9.0 /HPF (0-13.0) 11/12/21 02:20 Urine Bacteria (Auto) 2+ /HPF (Negative) 11/12/21 02:20 Urine Mucus Few /HPF 11/12/21 02:20 Urine Yeast (Budding) 3+ /HPF 11/12/21 02:20 Urine Eosinophils None seen (None Seen) 11/12/21 02:20 Urine Creatinine 189.3 mg/dL (0.1-20.0) H 11/12/21 02:20 Urine Sodium 30 mmol/L 11/12/21 02:20 Hepatitis A IgM Ab Non-reactive (NonReactive) 11/12/21 04:45 Hep Bs Antigen Non-reactive (Negative) 11/12/21 04:45 Hep B Core IgM Ab Non-reactive (NonReactive) 11/12/21 04:45 Hepatitis C Antibody Non-reactive (NonReactive) 11/12/21 04:45 Iglesias/IV: Voiding Method Indwelling Catheter Active Medications - Current Medications Current Medications: Generic Name Dose Route Start Last Admin Trade Name Freq PRN Reason Stop Dose Admin Acetaminophen 650 mg 11/11/21 22:40 Acetaminophen 325 Mg Tab PO Q4H PRN Pain MILD(1-3)/Fever >100.5/SOTO Albuterol 2.5 mg 11/11/21 22:40 Albuterol 2.5 Mg/3 Ml Nebu IH Q3HRT PRN Shortness Of Breath Aspirin 325 mg 11/12/21 10:00 11/15/21 09:47 Aspirin 325 Mg Tab PO 325 mg QDAY BAO Administration Atorvastatin Calcium 40 mg 11/12/21 22:00 11/14/21 22:00 Atorvastatin 40 Mg Tab PO 40 mg QHS BAO Administration Dextrose 0 ml 11/11/21 23:03 Dextrose 10% *Hypoglycemia IV PRN PRN Hypoglycemia Docusate Sodium 100 mg 11/12/21 22:00 11/15/21 09:47 Docusate Sodium 100 Mg/10 Ml Oral Liqd PO 100 mg BID BAO Administration Famotidine 20 mg 11/13/21 10:00 11/15/21 09:47 Famotidine 20 Mg Tab PO 20 mg QDAY BAO Administration Fentanyl 50 mcg 11/11/21 20:56 11/12/21 00:12 Fentanyl 100 Mcg/2 Ml Inj IV 50 mcg Q10MIN PRN Administration ANALGESIA Heparin Sodium (Porcine) 5,000 unit 11/12/21 10:00 11/15/21 09:47 Heparin 5,000 Unit/1 Ml Vial SUB-Q 5,000 unit Q12HR BAO Administration Hydrophilic Ointment 1 applic 11/11/21 20:56 Lip Therapy Vaseline TP Q2HR PRN Dry Lips Fentanyl Citrate 2,000 mcg in 100 mls @ 13.608 mls/hr 11/11/21 21:00 11/15/21 18:41 Fentanyl Drip Premix IV 1 mcg/kg/hr TITR BAO 13.608 mls/hr Administration Protocol 1 MCG/KG/HR NORepinephrine/NS 8 MG-250 ML 8 mg in 250 mls @ 3.75 mls/hr 11/11/21 23:00 11/14/21 02:49 Norepinephrine/Ns 8 Mg-250 Ml (Double Conc) IV 4 mcg/min TITRATE BAO 7.5 mls/hr Administration Protocol 2 MCG/MIN Propofol 1,000 mg in 100 mls @ 8.166 mls/hr 11/13/21 09:00 11/15/21 16:56 Diprivan 10 Mg/Ml IV 5 mcg/kg/min TITR BAO 8.166 mls/hr Titration Protocol 5 MCG/KG/MIN Insulin Human Lispro 0 unit 11/12/21 00:00 11/15/21 16:56 Insulin Lispro 100 Unit/Ml SUB-Q Not Given Q6HR BAO Protocol Multi-Ingred Cream/Lotion/Oil/Oint 1 applic 11/11/21 20:56 Mineral Oil/Petrolatum, White Ophth Oint 3.5 Gm OU Q4HR PRN Dry Eye(s) Ondansetron HCl 4 mg 11/11/21 22:40 Ondansetron 4 Mg/2 Ml Inj IV Q8H PRN Nausea And Vomiting Sodium Chloride 10 ml 11/12/21 10:00 11/14/21 20:55 Sodium Chloride 0.9% 10 Ml Flush Syringe IV 10 ml BID BAO Administration Sodium Chloride 10 ml 11/11/21 22:40 Sodium Chloride 0.9% 10 Ml Flush Syringe IV PRN PRN LINE FLUSH Nutrition/Malnutrition Assess - Dietary Evaluation Nutrition/Malnutrition Findings: Nutrition Notes Start: 11/12/21 16:08 Freq: Status: Active Protocol: Document 11/14/21 15:39 TODD (Rec: 11/14/21 15:45 [facility] [id number]) Nutrition Notes Initial or Follow up Reassessment Current Diagnosis Diabetes,Hypertension, Respiratory Failure Other Pertinent Diagnosis Acute renal failure (on HD), pneu Current Diet TF - Nepro at 50ml/hr Labs/Tests K 3 BUN 41 Cr 7 Mg 1.6 Pertinent Medications Mg sulfate x 1 dose, Levophed gtt, 20mEq KCl x 1 dose Height 5 ft 9 in Weight 272.2 kg [place] Body Weight (kg) 72.72 BMI 88.6 Weight Status Morbidly Obese Subjective/Other Information Observed Nepro infusing at goal rate. Per RN, pt tolerating TF. Pt remains on vent support. Percent of energy/protein needs met: 99% energy 53% pro Burn Absent Trauma Absent #1 Nutrition Diagnosis Inadequate oral intake Diagnosis Progress(for reassessment Continues documentation) Is patient on ventilator? Yes Is Patient Ambulatory and/or Out of Bed No REE-([place]-confined to bed) 4258.860 Kcal/Kg value to use for calculation 8 Approximate Energy Requirements Using 2178 kcal/Kg Additional Notes Pro needs up to 2.5g/kg IBW: 182g/day Fluid needs 1-1.5L/day Nutrition Intervention Nutrition Support: Continue Nepro at 50ml/hr with 200ml water flush q4h. Kcal 2,160 Protein (gm) 97 Carbohydrates (gm) 193 Fat (gm) 115 Fluid (mL) 872 Fiber (gm) 15 Goal #1 TF tolerance Goal #2 TF to meet at least 75% energy and pro needs Follow-Up By: 11/21/21 Additional Comments F/U: stable TF, vent status, wt
[2021-11-15] MEDS ORDERED: EPINEPHrine RACEMIC 2.25% 0.5ML NEBU IH ONE (13:00)
[2021-11-15] MEDS ORDERED: ROCURONIUM 50 MG/5 ML INJ IV ONE (13:17)
[2021-11-15] MEDS ORDERED: ETOMIDATE 20 MG/10 ML INJ IV ONE (13:17)
[2021-11-15] MEDS ORDERED: propofoL 200 MG/20 ML VIAL IV ONE (13:20)
--- NOTE | 2021-11-15 14:03 | Event Note ---
Date: 11/15/21 PROCEDURE NOTE responded to desaturation event while on BIPAP patient with O2 sats in the 80's and dropping clinically with increasing lethargy and hypoventilation had essentially failed a trial of BIPAP despite IPAP 20, EPAP 12 and rate of 25 - call placed to anesthesia for back-up - ambubagged with peep valve at 16 cm H2O - propofol 100 mg administered after O2 sats recovered - intubation attempted with glideoscope - vocal cords anterior and unable to get ETT in - bagged and O2 sats recovered - bougie tried unsuccesfully - able with cricoid pressure and repositioning to get ETT through vocal cords then - stylet withdrawn as tube advanced into trachea - good color change on CO2 detector - CXR confirms adequate position - no overt hemodynamic decompensation throughout - anesthesiologist present towards end of procedure and appreciated
--- NOTE | 2021-11-15 14:10 | Ultrasound Report ---
ULTRASOUND RENAL INDICATION / CLINICAL INFORMATION: renal failure. COMPARISON: None available. FINDINGS: RIGHT KIDNEY: Length = 11.0 cm. - Echogenicity: Normal. - Cortical Thickness: Normal. - Hydronephrosis: None. - Cyst or mass: No significant abnormality. - Stones: None seen. LEFT KIDNEY: Not visualized URINARY BLADDER: Not visualized FREE FLUID: None. ADDITIONAL FINDINGS: None. IMPRESSION: 1. Examination is limited no acute findings are seen in the right kidney Signer Name: Daniel Stephens MD Signed: 11/15/2021 2:01 PM Workstation Name: [id number]
--- NOTE | 2021-11-15 14:37 | XRay Report ---
CHEST 1 VIEW 11/15/2021 1:27 PM INDICATION / CLINICAL INFORMATION: ETT placement. COMPARISON: 11/15/21 4:13 AM FINDINGS: SUPPORT DEVICES: Tubes and lines are in expected position. HEART / MEDIASTINUM: Stable. LUNGS / PLEURA: Bibasilar pulmonary opacities are unchanged. No pneumothorax. ADDITIONAL FINDINGS: No significant additional findings. IMPRESSION: 1. Endotracheal tube in expected position. No significant change. Signer Name: Licha Lockhart MD Signed: 11/15/2021 2:33 PM Workstation Name: [email or web address]
--- NOTE | 2021-11-15 16:42 | XRay Report ---
ABDOMEN 1 VIEW 11/15/2021 2:31 PM INDICATION / CLINICAL INFORMATION: OGT placement. COMPARISON: None available. FINDINGS: TUBES / LINES: Tip of the esophagogastric tube projects the level the gastric antrum. BOWEL GAS PATTERN: No significant abnormality. FREE AIR / EXTRALUMINAL GAS: None. ADDITIONAL FINDINGS: No significant additional findings. IMPRESSION: 1. Esophagogastric tube in expected position. Signer Name: Abiodun Bentley MD Signed: 11/15/2021 4:37 PM Workstation Name: [email or web address]
--- NOTE | 2021-11-15 16:47 | XRay Report ---
CHEST 1 VIEW INDICATION / CLINICAL INFORMATION: follow up respiratory failure. COMPARISON: One day prior FINDINGS: SUPPORT DEVICES: Unchanged. HEART / MEDIASTINUM: Stable. LUNGS / PLEURA: No significant interval change in severity or distribution of airspace opacities. No pneumothorax. ADDITIONAL FINDINGS: No significant additional findings. IMPRESSION: 1. No significant change. Signer Name: Ramon Saba MD Signed: 11/15/2021 4:43 PM Workstation Name: [email or web address]
[2021-11-15 17:00] LABS: ABG Base Excess 0.1 mmol/L (-2.0-3.0); ABG HCO3 26.2 mmol/L (20.0-26.0); ABG Methemoglobin 0.5 % (0.0-1.5); ABG Oxygen Saturation 99.4 % (95.0-99.0); ABG PCO2 50.2 mm Hg; ABG PH 7.335 pH Units (7.350-7.450)
[2021-11-16] MEDS: INSULIN LISPRO 100 UNIT/ML SUB-Q SCH ×4 (00:11→22:08)
[2021-11-16] MEDS: fentaNYL DRIP Premix 2,000 MCG/100 ML BAG IV SCH ×4 (01:36→22:54)
--- NOTE | 2021-11-16 01:54 | XRay Report ---
CHEST 1 VIEW INDICATION / CLINICAL INFORMATION: follow up respiratory failure. COMPARISON: Chest x-ray 11/15/2021 FINDINGS: SUPPORT DEVICES: Stable, satisfactory device positioning. HEART / MEDIASTINUM: Stable cardiomegaly. LUNGS / PLEURA: Prominent central vasculature increased in prominence since comparison. Interval decr ease in lung volume. Mid and lower lung opacities present bilaterally suggests minimal change. No pne umothorax. BONES: No significant osseous abnormality. ADDITIONAL FINDINGS: No significant additional findings. IMPRESSION: 1. Interval decrease in lung volumes. 2. Persistent bibasilar lung opacities thought to reflect atelectasis and/or edema. Mild vascular con gestion not excluded. Signer Name: Rubén Dc II, MD Signed: 11/16/2021 1:49 AM Workstation Name: [id number]
[2021-11-16 04:42] LABS: Hematocrit 25.2 % (35.5-45.6); Hemoglobin 7.8 gm/dl (11.8-15.2); Mean Corpuscular HGB Conc 31 % (32-34); Mean Corpuscular Volume 87 fl (84-94); Platelet Count 220 K/mm3 (140-440); Red Blood Count 2.88 M/mm3 (3.65-5.03); Red Cell Distribution Width 19.1 % (13.2-15.2)
[2021-11-16 04:42] LABS: ABG Base Excess 0.4 mmol/L (-2.0-3.0); ABG HCO3 25.7 mmol/L (20.0-26.0); ABG Methemoglobin 0.4 % (0.0-1.5); ABG Oxygen Saturation 98.1 % (95.0-99.0); ABG PCO2 44.6 mm Hg; ABG PH 7.378 pH Units (7.350-7.450); ABG PO2 115.6 mm Hg (80.0-90.0)
[2021-11-16 05:05] LABS: Calcium 7.9 mg/dL (8.4-10.2)
--- NOTE | 2021-11-16 07:02 | Progress Note ---
Assessment and Plan 56 y/o morbidly obese male with acute respiratory failure, requiring intubation and now in acute renal failure and in need of HD 11/16/21: Given patient body habitus, difficult airway and likely no improvement in current clinical state, will need trach. However given his neck size, I would suggest this be done by ENT as I am not even sure that the bovona XLT is long enough. Ok to consult surgery here but I suggest seeking transfer to a tertiary care facility with ENT to attempt this. Also suggest obtaining neck CT to further evaluate total neck anatomy that way if we need to send this over prior to acceptance we can. Guarded prognosis but mental status is intact. HD per renal. 11/15/21: stop sedation. Attempt PSV. Bipap PRN and QHS. Hopeful extubation today. HD per renal. 11/14/21: Wean PEEP again today and attempt PSV trial. If passes will attempt extubation. HD per renal 11/13/21: HD per renal. No PSV trials today. Wean PEEP after HD. Guarded prognosis. 1. Obtain ABG 2. Place Iglesias catheter 3. Wean Pressors for maps greater than 65 4. Insulin, D50 for Hyperkalemia, and HD per renal 5. Stopped scheduled duonebs 6. Stopped abx 7. Obtain BNP with morning labs 8. Guarded prognosis. CCT 31 minutes. Subjective Date of service: 11/16/21 Principal diagnosis: Acute respiratory failure, Interval history: Patient failed extubation yesterday despite rescue attempt with Bipap. Appreciate Dr. Gerard for re-intubating patient as I was in clinic. Sedated this am on Diprovan and Fent. Back at 40% with good sats. Good abg this am. Objective Vital Signs - 12hr 11/15/21 11/15/21 11/15/21 19:00 19:47 19:48 Temperature 97.6 F Pulse Rate 61 Pulse Rate [ 69 From Monitor] Respiratory 22 Rate Blood Pressure 118/65 O2 Sat by Pulse 100 99 Oximetry 11/15/21 11/15/21 11/15/21 19:49 20:00 21:00 Temperature 97.6 F Pulse Rate 63 64 57 L Pulse Rate [ From Monitor] Respiratory 22 22 Rate Blood Pressure 125/71 141/71 95/49 O2 Sat by Pulse 100 100 100 Oximetry 03/29/22 03/29/22 03/29/22 22:00 22:01 23:00 Temperature Pulse Rate 52 L 51 L 53 L Pulse Rate [ From Monitor] Respiratory 22 Rate Blood Pressure 92/47 92/47 97/49 O2 Sat by Pulse 100 100 100 Oximetry 11/15/21 11/15/21 11/16/21 23:47 23:53 00:00 Temperature 97.6 F Pulse Rate 62 61 Pulse Rate [ 60 From Monitor] Respiratory 22 Rate Blood Pressure 96/48 113/66 O2 Sat by Pulse 100 94 Oximetry 11/16/21 11/16/21 11/16/21 01:00 02:00 03:00 Temperature Pulse Rate 58 L 61 64 Pulse Rate [ From Monitor] Respiratory 22 Rate Blood Pressure 101/51 126/75 126/75 O2 Sat by Pulse 100 100 100 Oximetry 11/16/21 11/16/21 11/16/21 03:57 04:00 04:27 Temperature 97.8 F Pulse Rate 65 72 Pulse Rate [ From Monitor] Respiratory 22 Rate Blood Pressure 111/60 125/71 O2 Sat by Pulse 100 100 Oximetry 11/16/21 11/16/21 05:00 06:00 Temperature Pulse Rate 65 63 Pulse Rate [ From Monitor] Respiratory 22 Rate Blood Pressure 114/58 110/53 O2 Sat by Pulse 100 98 Oximetry Constitutional: comatose Eyes: non-icteric ENT: other (orally intubated and sedated) Neck: supple, other (large in circumference) Effort: normal Ascultation: Bilateral: diminished breath sounds Cardiovascular: regular rate and rhythm Gastrointestinal: normoactive bowel sounds Extremities: edema, anasarca Neurologic: unable to assess CBC and BMP: 11/16/21 04:00 11/16/21 04:00 ABG, PT/INR, D-dimer: ABG ABG pH 7.378 pH Units (7.350-7.450) 11/16/21 04:05 ABG pCO2 44.6 mm Hg 11/16/21 04:05 ABG pO2 115.6 mm Hg (80.0-90.0) H 11/16/21 04:05 ABG O2 Saturation 98.1 % (95.0-99.0) 11/16/21 04:05 Abnormal lab findings: Abnormal Labs 11/11/21 11/11/21 11/11/21 19:49 19:49 23:29 WBC 11.5 H RBC Hgb 10.1 L Hct 34.8 L MCH 27 L MCHC 29 L RDW 20.1 H Lymph % (Auto) 10.0 L [place] % (Auto) 8.8 H Lymph # (Auto) 1.1 L [place] # (Auto) 1.0 H Seg Neutrophils % 79.8 H Seg Neuts % (Manual) Lymphocytes % (Manual) Seg Neutrophils # 9.2 H Seg Neutrophils # Man Lymphocytes # (Manual) ABG pH ABG pO2 ABG HCO3 ABG O2 Saturation ABG Base Excess ABG Hemoglobin Sodium Potassium 7.6 H* Chloride 107.8 H Carbon Dioxide 13 L BUN 107 H Creatinine 13.8 H Glucose POC Glucose Calcium 7.5 L Phosphorus Magnesium Iron TIBC Total Creatine Kinase 268 H Troponin T 0.324 H* NT-Pro-B Natriuret Pep Total Protein 9.1 H Albumin 3.0 L PTH Intact Urine WBC (Auto) Urine Creatinine 11/11/21 11/11/21 11/12/21 23:29 23:29 02:20 WBC RBC Hgb Hct MCH MCHC RDW Lymph % (Auto) [place] % (Auto) Lymph # (Auto) [place] # (Auto) Seg Neutrophils % Seg Neuts % (Manual) Lymphocytes % (Manual) Seg Neutrophils # Seg Neutrophils # Man Lymphocytes # (Manual) ABG pH ABG pO2 ABG HCO3 ABG O2 Saturation ABG Base Excess ABG Hemoglobin Sodium Potassium Chloride Carbon Dioxide BUN Creatinine Glucose POC Glucose Calcium Phosphorus Magnesium Iron 24 L TIBC 157 L Total Creatine Kinase Troponin T NT-Pro-B Natriuret Pep Total Protein Albumin PTH Intact 1174 H Urine WBC (Auto) Urine Creatinine 189.3 H 11/12/21 11/12/21 11/12/21 02:20 02:28 06:55 WBC 20.5 H RBC 3.54 L Hgb 9.4 L Hct 32.3 L MCH 27 L MCHC 29 L RDW 20.0 H Lymph % (Auto) [place] % (Auto) Lymph # (Auto) [place] # (Auto) Seg Neutrophils % Seg Neuts % (Manual) 89.0 H Lymphocytes % (Manual) 0 L Seg Neutrophils # Seg Neutrophils # Man 18.2 H Lymphocytes # (Manual) 0.0 L ABG pH 7.172 L* ABG pO2 100.6 H ABG HCO3 17.4 L ABG O2 Saturation ABG Base Excess -10.6 L ABG Hemoglobin 9.4 L Sodium Potassium Chloride Carbon Dioxide BUN Creatinine Glucose POC Glucose Calcium Phosphorus Magnesium Iron TIBC Total Creatine Kinase Troponin T NT-Pro-B Natriuret Pep Total Protein Albumin PTH Intact Urine WBC (Auto) 12.0 H Urine Creatinine 11/12/21 11/12/21 11/12/21 06:55 09:10 12:01 WBC RBC Hgb Hct MCH MCHC RDW Lymph % (Auto) [place] % (Auto) Lymph # (Auto) [place] # (Auto) Seg Neutrophils % Seg Neuts % (Manual) Lymphocytes % (Manual) Seg Neutrophils # Seg Neutrophils # Man Lymphocytes # (Manual) ABG pH 7.296 L ABG pO2 237.3 H ABG HCO3 ABG O2 Saturation 99.3 H ABG Base Excess -6.0 L ABG Hemoglobin 8.8 L Sodium Potassium 5.5 H D Chloride 107.1 H Carbon Dioxide 19 L BUN 78 H Creatinine 9.4 H Glucose 119 H POC Glucose 106 H Calcium 8.1 L Phosphorus Magnesium Iron TIBC Total Creatine Kinase Troponin T NT-Pro-B Natriuret Pep Total Protein Albumin PTH Intact Urine WBC (Auto) Urine Creatinine 11/12/21 11/12/21 11/12/21 16:46 16:46 22:30 WBC RBC Hgb Hct MCH MCHC RDW Lymph % (Auto) [place] % (Auto) Lymph # (Auto) [place] # (Auto) Seg Neutrophils % Seg Neuts % (Manual) Lymphocytes % (Manual) Seg Neutrophils # Seg Neutrophils # Man Lymphocytes # (Manual) ABG pH ABG pO2 ABG HCO3 ABG O2 Saturation ABG Base Excess ABG Hemoglobin Sodium 146 H Potassium Chloride 108.2 H Carbon Dioxide 21 L BUN 66 H Creatinine 9.8 H Glucose 125 H POC Glucose Calcium 7.8 L Phosphorus Magnesium Iron TIBC Total Creatine Kinase Troponin T 0.319 H* 0.313 H* NT-Pro-B Natriuret Pep Total Protein Albumin PTH Intact Urine WBC (Auto) Urine Creatinine 11/12/21 11/12/21 11/13/21 23:18 Unknown 04:00 WBC 17.2 H RBC 3.09 L Hgb 8.4 L Hct 27.5 L MCH 27 L MCHC 30 L RDW 19.6 H Lymph % (Auto) [place] % (Auto) Lymph # (Auto) [place] # (Auto) Seg Neutrophils % Seg Neuts % (Manual) Lymphocytes % (Manual) Seg Neutrophils # Seg Neutrophils # Man Lymphocytes # (Manual) ABG pH ABG pO2 ABG HCO3 ABG O2 Saturation ABG Base Excess ABG Hemoglobin Sodium Potassium Chloride Carbon Dioxide BUN Creatinine Glucose POC Glucose 120 H Calcium Phosphorus Magnesium Iron TIBC Total Creatine Kinase Troponin T NT-Pro-B Natriuret Pep 3674 H Total Protein Albumin PTH Intact Urine WBC (Auto) Urine Creatinine 11/13/21 11/13/21 11/13/21 04:00 04:00 05:23 WBC RBC Hgb Hct MCH MCHC RDW Lymph % (Auto) [place] % (Auto) Lymph # (Auto) [place] # (Auto) Seg Neutrophils % Seg Neuts % (Manual) Lymphocytes % (Manual) Seg Neutrophils # Seg Neutrophils # Man Lymphocytes # (Manual) ABG pH 7.274 L ABG pO2 93.2 H ABG HCO3 ABG O2 Saturation ABG Base Excess -3.9 L ABG Hemoglobin 8.2 L Sodium Potassium Chloride Carbon Dioxide 21 L BUN 71 H Creatinine 9.9 H Glucose 128 H POC Glucose 117 H Calcium 7.7 L Phosphorus 5.10 H Magnesium 1.60 L Iron TIBC Total Creatine Kinase Troponin T NT-Pro-B Natriuret Pep Total Protein Albumin PTH Intact Urine WBC (Auto) Urine Creatinine 11/13/21 11/13/21 11/14/21 16:20 23:31 04:10 WBC RBC Hgb Hct MCH MCHC RDW Lymph % (Auto) [place] % (Auto) Lymph # (Auto) [place] # (Auto) Seg Neutrophils % Seg Neuts % (Manual) Lymphocytes % (Manual) Seg Neutrophils # Seg Neutrophils # Man Lymphocytes # (Manual) ABG pH ABG pO2 107.1 H ABG HCO3 ABG O2 Saturation ABG Base Excess ABG Hemoglobin 6.5 L Sodium Potassium Chloride Carbon Dioxide BUN Creatinine Glucose POC Glucose 125 H 123 H Calcium Phosphorus Magnesium Iron TIBC Total Creatine Kinase Troponin T NT-Pro-B Natriuret Pep Total Protein Albumin PTH Intact Urine WBC (Auto) Urine Creatinine 11/14/21 11/14/21 11/14/21 06:30 06:30 15:00 WBC 11.2 H RBC 3.03 L Hgb 8.1 L Hct 26.6 L MCH 27 L MCHC 30 L RDW 19.3 H Lymph % (Auto) [place] % (Auto) Lymph # (Auto) [place] # (Auto) Seg Neutrophils % Seg Neuts % (Manual) Lymphocytes % (Manual) Seg Neutrophils # Seg Neutrophils # Man Lymphocytes # (Manual) ABG pH ABG pO2 ABG HCO3 ABG O2 Saturation ABG Base Excess ABG Hemoglobin Sodium Potassium 3.0 L D 3.4 L Chloride Carbon Dioxide BUN 41 H Creatinine 7.0 H Glucose 107 H POC Glucose Calcium 7.5 L Phosphorus Magnesium 1.60 L Iron TIBC Total Creatine Kinase Troponin T NT-Pro-B Natriuret Pep Total Protein Albumin PTH Intact Urine WBC (Auto) Urine Creatinine 11/14/21 11/15/21 11/15/21 17:24 04:00 04:00 WBC 11.3 H RBC 3.00 L Hgb 8.1 L Hct 26.3 L MCH 27 L MCHC 31 L RDW 19.2 H Lymph % (Auto) [place] % (Auto) Lymph # (Auto) [place] # (Auto) Seg Neutrophils % Seg Neuts % (Manual) Lymphocytes % (Manual) Seg Neutrophils # Seg Neutrophils # Man Lymphocytes # (Manual) ABG pH ABG pO2 ABG HCO3 ABG O2 Saturation ABG Base Excess ABG Hemoglobin Sodium Potassium 3.4 L Chloride Carbon Dioxide BUN 32 H Creatinine 5.9 H Glucose 117 H POC Glucose 124 H Calcium 8.3 L Phosphorus Magnesium Iron TIBC Total Creatine Kinase Troponin T NT-Pro-B Natriuret Pep Total Protein Albumin PTH Intact Urine WBC (Auto) Urine Creatinine 11/15/21 11/15/21 11/16/21 13:58 16:20 04:00 WBC 13.2 H RBC 2.88 L Hgb 7.8 L Hct 25.2 L MCH 27 L MCHC 31 L RDW 19.1 H Lymph % (Auto) [place] % (Auto) Lymph # (Auto) [place] # (Auto) Seg Neutrophils % Seg Neuts % (Manual) Lymphocytes % (Manual) Seg Neutrophils # Seg Neutrophils # Man Lymphocytes # (Manual) ABG pH 7.335 L ABG pO2 254.0 H ABG HCO3 26.2 H ABG O2 Saturation 99.4 H ABG Base Excess ABG Hemoglobin 8.5 L Sodium Potassium Chloride Carbon Dioxide BUN Creatinine Glucose POC Glucose 132 H Calcium Phosphorus Magnesium Iron TIBC Total Creatine Kinase Troponin T NT-Pro-B Natriuret Pep Total Protein Albumin PTH Intact Urine WBC (Auto) Urine Creatinine 11/16/21 11/16/21 04:00 04:05 WBC RBC Hgb Hct MCH MCHC RDW Lymph % (Auto) [place] % (Auto) Lymph # (Auto) [place] # (Auto) Seg Neutrophils % Seg Neuts % (Manual) Lymphocytes % (Manual) Seg Neutrophils # Seg Neutrophils # Man Lymphocytes # (Manual) ABG pH ABG pO2 115.6 H ABG HCO3 ABG O2 Saturation ABG Base Excess ABG Hemoglobin 8.1 L Sodium Potassium Chloride Carbon Dioxide BUN 44 H Creatinine 7.7 H Glucose 104 H POC Glucose Calcium 7.9 L Phosphorus Magnesium Iron TIBC Total Creatine Kinase Troponin T NT-Pro-B Natriuret Pep Total Protein Albumin PTH Intact Urine WBC (Auto) Urine Creatinine Allied health notes reviewed: nursing
[2021-11-16] MEDS: DOCUSATE SODIUM 100 MG/10 ML ORAL LIQD PO SCH ×2 (09:00→21:17)
[2021-11-16] MEDS: FAMOTIDINE 20 MG TAB PO SCH (09:01)
[2021-11-16] MEDS: HEPARIN 5,000 UNIT/1 ML VIAL SUB-Q SCH ×2 (09:01→21:17)
[2021-11-16] MEDS: ASPIRIN 325 MG TAB PO SCH (09:01)
--- NOTE | 2021-11-16 09:41 | Progress Note ---
Assessment and Plan Patient is a 56-year-old morbidly obese bedbound male who was admitted with acute respiratory failure and acute renal failure on 11/12/21. Cardiology initially consulted for elevated troponin on admission. Assessment: Acute Encephalopathy Acute Respiratory Failure Acute Renal Failure (s/p Vascath placement & emergent HD 11/11)- nephrology following Hyperkalemia (resolved) Anemia S/p Shock H/o HTN DM Morbid Obesity/Bedbound ?O[facility]/AYAN Chronic Lymphedema NSTEMI- likely type II NH in the setting of acute respiratory failure/acute renal failure/shock. Cardiographics: EKG- 11/12/21-sinus rhythm, low voltage, extremity Chest x-ray- 11/14/21: Minimal interval change in the chest. There may be minimal improvement airspace opacities mid chest. Persistent low opacities are noted Echocardiogram- 11/11/21: Exam will be followed up by limited Optison contrast study on 11/14/2021. Left ventricle systolic function is normal. LVEF is > 70%. Mild concentric left ventricular hypertrophy. There is no pericardial effusion. Follow-up limited echo 11/14/2021: LV: The left ventricular systolic function is normal. The left ventricular ejection fraction is within the normal range. LVEF is 55 to 60%. No left ventricle thrombus noted on the study Plan: Ischemic evaluation remains unattainable at this time due to patient weight limitations. Electrolyte replacement per Nephrology Continue present management per Primary teams. Patient seen in conjunction with Dr. Metcalf, who agrees with the assessment and plan of care. - Patient Problems (1) Acute renal failure (ARF) Current Visit: Yes Status: Acute Qualifiers: Qualified Code(s): N17.9 - Acute kidney failure, unspecified (2) Acute respiratory failure Current Visit: Yes Status: Acute Qualifiers: Respiratory failure complication: hypoxia Qualified Code(s): J96.01 - Acute respiratory failure with hypoxia (3) Elevated troponin Current Visit: Yes Status: Acute (4) Obesity Current Visit: Yes Status: Acute (5) SOB (shortness of breath) Current Visit: Yes Status: Acute (6) Type 2 NH (myocardial infarction) Current Visit: Yes Status: Acute Subjective Date of service: 11/16/21 Principal diagnosis: Acute respiratory failure, Interval history: Patient seen and examined this morning in the intensive care unit. Patient was extubated yesterday but was subsequently reintubated for respiratory distress. Patient back on IV sedation. No apparent distress and is alert and following commands. Telemetry: Sinus rhythm 70s Intake & Output 11/15/21 11/16/21 11/16/21 23:59 07:59 15:59 Intake Total 81.135 811.525 530.317 Output Total 20 120 Balance 61.135 691.525 530.317 Objective Vital Signs Temp Pulse Pulse Resp BP Pulse Ox 11/16/21 09:00 73 22 115/55 97 11/16/21 08:42 75 137/68 97 11/16/21 08:00 98.8 F 69 69 22 120/70 99 11/16/21 07:00 60 22 94/50 99 11/16/21 06:00 63 22 110/53 98 11/16/21 05:00 65 22 114/58 100 11/16/21 04:27 72 125/71 100 11/16/21 04:00 65 22 111/60 100 11/16/21 03:57 97.8 F 11/16/21 03:00 64 22 126/75 100 11/16/21 02:00 61 22 126/75 100 11/16/21 01:00 58 L 22 101/51 100 11/16/21 00:00 61 60 22 113/66 94 11/15/21 23:53 97.6 F 11/15/21 23:47 62 96/48 100 11/15/21 23:00 53 L 22 97/49 100 11/15/21 22:01 51 L 22 92/47 100 11/15/21 22:00 52 L 22 92/47 100 11/15/21 21:00 57 L 22 95/49 100 11/15/21 20:00 97.6 F 64 22 141/71 100 11/15/21 19:49 63 125/71 100 11/15/21 19:48 69 99 11/15/21 19:47 97.6 F 11/15/21 19:00 61 22 118/65 100 11/15/21 18:01 84 15 114/60 11/15/21 17:00 60 22 113/69 100 11/15/21 16:00 99 F 64 69 22 132/73 100 11/15/21 15:49 61 165/128 99 11/15/21 15:00 56 L 22 96/46 100 11/15/21 14:00 84 20 147/77 99 11/15/21 13:30 88 11/15/21 13:00 107 H 27 H 203/105 95 11/15/21 12:01 82 15 103/82 92 11/15/21 12:00 97.8 F 75 75 16 96 11/15/21 11:53 80 11 L 124/77 99 11/15/21 11:00 65 22 102/52 95 11/15/21 10:00 64 22 110/55 93 - Physical Examination General: No Apparent Distress HEENT: Positive: Normocephaly Neck: Positive: trachea midline. Negative: JVD/HJR Cardiac: Positive: Reg Rate and Rhythm, S1/S2 Lungs: Positive: clear to auscultation, Ventilated Respirations (Anterior lobe) Neuro: Positive: Other (intubated but awake and alert. Following commands. ) Abdomen: Positive: Soft, Active Bowel Sounds Skin: Negative: Rash Extremities: Present: edema (Chronic lymphedema bilateral lower extremities) - Labs and Meds CBC 11/16/21 Range/Units 04:00 WBC 13.2 H (4.5-11.0) K/mm3 RBC 2.88 L (3.65-5.03) M/mm3 Hgb 7.8 L (11.8-15.2) gm/dl Hct 25.2 L (35.5-45.6) % Plt Count 220 (140-440) K/mm3 Comprehensive Metabolic Panel 11/16/21 Range/Units 04:00 Sodium 138 (137-145) mmol/L Potassium 3.7 (3.6-5.0) mmol/L Chloride 98.4 (98-107) mmol/L Carbon Dioxide 24 (22-30) mmol/L BUN 44 H (9-20) mg/dL Creatinine 7.7 H (0.8-1.3) mg/dL Glucose 104 H (75-100) mg/dL Calcium 7.9 L (8.4-10.2) mg/dL - Imaging and Cardiology EKG: report reviewed, image reviewed Echo: pending - Telemetry EKG Rhythm: Sinus Rhythm - EKG Sinus rhythms and dysrhythmias: sinus rhythm - Allied health notes Allied health notes reviewed: nursing
[2021-11-16] MEDS ORDERED: SODIUM CHLORIDE 0.9% 100 ML IV PRN (10:22)
--- NOTE | 2021-11-16 10:43 | Progress Note ---
<RUFUS ALVAREZ - Last Filed: 11/16/21 16:57> Assessment and Plan Assessment and plan: This is a 56-year-old male with DM, HTN, obesity, currently bedbound and past intubations admitted with acute hypoxic respiratory failure and acute renal failure Hospital course to date: 11/12: Overnight patient received a dialysis catheter and was initiated on dialysis. Iglesias catheter was also placed. Antibiotics discontinued. proBNP pending. Decrease in FiO2 related to ABG. Echocardiogram pending. Patient given X1 for potassium 5.5 and nutrition consulted for tube feedings. updated brother at bedside 11/13: Propofol letter for sedation as patient seems restless on the ventilator only on fentanyl. HD scheduled for today. [facility] plans to conduct PSV possibly Sunday. 11/14: Tolerated HD overnight, 2L removed. Plan for possible HD again today. Patient is tolerating PST today on low dose fentanyl, plan for possible extubation tomorrow. 11/15: SANA overnight. Remains on the vent and on low dose sedation. Continue to tolerate HD. Plan for PST and possible extubation today. 11/16: Failed extubation yesterday and had to be emergently reintubated due to hypoxia and decreased LOC. Patient is stable on the vent this am, remains on low dose sedation, while awake and following commands. CCM recommendations noted due to patient's body habitus, he might need to be trach/Peg. CT neck was canceled due to weight limit. General Surgery consulted for Trach/PEG eval. Neuro: Acute metabolic encephalopathy -Intubated and on low dose Fentanyl and prop drip, RASS 0 -RASS goal 0 to -1 -Avoid delirium -Reorientation as needed -Maintain sleep-wake cycle -aspiration/seizure precautions -As needed analgesia -Patient will open eyes to verbal stimuli -Consider neurology consult Cardiac: h/o HTN, elevated troponins -Cardiology consulted, appreciate recommendations -Blood pressure monitoring per protocol -S/p vasopressor support -Echocardiogram shows ejection fraction greater than 70 Respiratory: Acute hypoxic respiratory failure, ? OHS -CCM consulted, appreciate recommendations -Intubated in the emergency department on 11/04 -11/15 Failed extubation had to be emergently reintubated due to hypoxia and decreased LOC -A.m. vent settings:AC/PRVC rate 22, tidal 550, PEEP 8, FiO2 40% -See RT notes for titration -A.m. ABG and CXR noted -VAP bundle -SPO2 monitoring -Per CCM patient might need trach/PEG -General Surgery consulted GI: Protin calorie malnutrition, Morbid obesity -Continue enteral nutrition -NTR consulted for tube feedings -BR: Colace : Acute Renal Failure -FeNa 1.04% indicating either ATN or prerenal state -Nephrology consulted, appreciate recommendations -Vas-Cath placed at HD initiated 11/12 -HD per nephrology -Strict intake and output -Renally dose medications -Avoid nephrotoxic medications -Daily weights -Renal ultrasound pending -Trend BMP -Repeat magnesium Endo: h/o DM -Avoid hypoglycemia -SSI -Accu-Cheks q. 6 -Hemoglobin A1c 5.7 GI/DVT Prophylaxis - PPI- Pepcid - Heparin SubQ The high probability of a clinically significant, sudden or life threatening deterioration of the [multi] system(s) required my full and direct attention, intervention and personal management. The aggregate critical care time was [60] minutes. This time is in addition to time spent performing reported procedures but includes the following: [x] Data Review and interpretation [x] Patient assessment and monitoring of vital signs [x] Documentation [x] Medication orders and management Disposition Plan: icu Total Time Spent with Patient (Minutes): 60 History Interval history: Patient seen and examined at the bedside. failed extubation yesterday and had to be emergently reintubated due to hypoxia and decreased LOC. Patient stable on the vent this am, on low dose sedation,AAO and following commands. SANA overnight Hospitalist Physical - Constitutional Vitals: Temp Pulse Resp BP Pulse Ox 98.8 F 67 22 112/55 98 11/16/21 08:00 11/16/21 10:00 11/16/21 10:00 11/16/21 10:00 11/16/21 10:00 General appearance: Present: no acute distress, obese, other (intubated, while awake on low dose sedation) - EENT Eyes: Present: PERRL, EOM intact ENT: hearing intact - Neck Neck: Present: normal ROM - Respiratory Respiratory effort: normal Respiratory: bilateral: rhonchi - Cardiovascular Rhythm: regular Heart Sounds: Present: S1 & S2 - Extremities Extremities: no ischemia, pulses intact, pulses symmetrical Extremity abnormal: edema - Peripheral Assessment Generalized Edema Type: Non-pitting Edema Degree: 1+ Capillary Refill: < 3 seconds Skin Temperature: Warm Peripheral Pulses: within normal limits - Abdominal General gastrointestinal: soft, non-distended, normal bowel sounds - Integumentary Integumentary: Present: warm, dry - Psychiatric Psychiatric: appropriate mood/affect, cooperative - Neurologic Neurologic: moves all extremities, other (intubated, while awake on low dose sedation) - Allied Health Allied health notes reviewed: nursing HEART Score - HEART Score Troponin: Troponin T 0.313 ng/mL (0.00-0.029) H* 11/12/21 22:30 Results - Labs CBC & Chem 7: 11/16/21 04:00 11/16/21 04:00 Labs: Laboratory Last Values WBC 13.2 K/mm3 (4.5-11.0) H 11/16/21 04:00 RBC 2.88 M/mm3 (3.65-5.03) L 11/16/21 04:00 Hgb 7.8 gm/dl (11.8-15.2) L 11/16/21 04:00 Hct 25.2 % (35.5-45.6) L 11/16/21 04:00 MCV 87 fl (84-94) 11/16/21 04:00 MCH 27 pg (28-32) L 11/16/21 04:00 MCHC 31 % (32-34) L 11/16/21 04:00 RDW 19.1 % (13.2-15.2) H 11/16/21 04:00 Plt Count 220 K/mm3 (140-440) 11/16/21 04:00 Lymph % (Auto) 10.0 % (13.4-35.0) L 11/11/21 19:49 [place] % (Auto) 8.8 % (0.0-7.3) H 11/11/21 19:49 Eos % (Auto) 0.9 % (0.0-4.3) 11/11/21 19:49 Baso % (Auto) 0.5 % (0.0-1.8) 11/11/21 19:49 Lymph # (Auto) 1.1 K/mm3 (1.2-5.4) L 11/11/21 19:49 [place] # (Auto) 1.0 K/mm3 (0.0-0.8) H 11/11/21 19:49 Eos # (Auto) 0.1 K/mm3 (0.0-0.4) 11/11/21 19:49 Baso # (Auto) 0.1 K/mm3 (0.0-0.1) 11/11/21 19:49 Add Manual Diff Complete 11/12/21 06:55 Total Counted 100 11/12/21 06:55 Seg Neutrophils % Inbound Call Center Representative 11/12/21 06:55 Seg Neuts % (Manual) 89.0 % (40.0-70.0) H 11/12/21 06:55 Band Neutrophils % 5.0 % 11/12/21 06:55 Lymphocytes % (Manual) 0 % (13.4-35.0) L 11/12/21 06:55 Reactive Lymphs % (Man) 0 % 11/12/21 06:55 Monocytes % (Manual) 3.0 % (0.0-7.3) 11/12/21 06:55 Eosinophils % (Manual) 0 % (0.0-4.3) 11/12/21 06:55 Basophils % (Manual) 0 % (0.0-1.8) 11/12/21 06:55 Metamyelocytes % 3.0 % 11/12/21 06:55 Myelocytes % 0 % 11/12/21 06:55 Promyelocytes % 0 % 11/12/21 06:55 Blast Cells % 0 % 11/12/21 06:55 Nucleated RBC % Not Reportable 11/12/21 06:55 Seg Neutrophils # 9.2 K/mm3 (1.8-7.7) H 11/11/21 19:49 Seg Neutrophils # Man 18.2 K/mm3 (1.8-7.7) H 11/12/21 06:55 Band Neutrophils # 1.0 K/mm3 11/12/21 06:55 Lymphocytes # (Manual) 0.0 K/mm3 (1.2-5.4) L 11/12/21 06:55 Abs React Lymphs (Man) 0.0 K/mm3 11/12/21 06:55 Monocytes # (Manual) 0.6 K/mm3 (0.0-0.8) 11/12/21 06:55 Eosinophils # (Manual) 0.0 K/mm3 (0.0-0.4) 11/12/21 06:55 Basophils # (Manual) 0.0 K/mm3 (0.0-0.1) 11/12/21 06:55 Metamyelocytes # 0.6 K/mm3 11/12/21 06:55 Myelocytes # 0.0 K/mm3 11/12/21 06:55 Promyelocytes # 0.0 K/mm3 11/12/21 06:55 Blast Cells # 0.0 K/mm3 11/12/21 06:55 WBC Morphology Not Reportable 11/12/21 06:55 Hypersegmented Neuts Not Reportable 11/12/21 06:55 Hyposegmented Neuts Not Reportable 11/12/21 06:55 Hypogranular Neuts Not Reportable 11/12/21 06:55 Smudge Cells Not Reportable 11/12/21 06:55 Toxic Granulation 1+ 11/12/21 06:55 Toxic Vacuolation Not Reportable 11/12/21 06:55 Dohle Bodies Not Reportable 11/12/21 06:55 Pelger-Huet Anomaly Not Reportable 11/12/21 06:55 Lissa Rods Not Reportable 11/12/21 06:55 Platelet Estimate Consistent w auto 11/12/21 06:55 Clumped Platelets Not Reportable 11/12/21 06:55 Plt Clumps, EDTA Not Reportable 11/12/21 06:55 Large Platelets Not Reportable 11/12/21 06:55 Giant Platelets Not Reportable 11/12/21 06:55 Platelet Satelliting Not Reportable 11/12/21 06:55 Plt Morphology Comment Not Reportable 11/12/21 06:55 RBC Morphology Normal 11/12/21 06:55 Dimorphic RBCs Not Reportable 11/12/21 06:55 Polychromasia Not Reportable 11/12/21 06:55 Hypochromasia Not Reportable 11/12/21 06:55 Poikilocytosis Not Reportable 11/12/21 06:55 Anisocytosis Not Reportable 11/12/21 06:55 Microcytosis Not Reportable 11/12/21 06:55 Macrocytosis Not Reportable 11/12/21 06:55 Spherocytes Not Reportable 11/12/21 06:55 Pappenheimer Bodies Not Reportable 11/12/21 06:55 Sickle Cells Not Reportable 11/12/21 06:55 Target Cells Not Reportable 11/12/21 06:55 Tear Drop Cells Not Reportable 11/12/21 06:55 Ovalocytes Not Reportable 11/12/21 06:55 Helmet Cells Not Reportable 11/12/21 06:55 Shea-Marinette Bodies Not Reportable 11/12/21 06:55 [place] Rings Not Reportable 11/12/21 06:55 Tuttle Cells Not Reportable 11/12/21 06:55 Bite Cells Not Reportable 11/12/21 06:55 Crenated Cell Not Reportable 11/12/21 06:55 Elliptocytes Not Reportable 11/12/21 06:55 Acanthocytes (Spur) Not Reportable 11/12/21 06:55 Rouleaux Not Reportable 11/12/21 06:55 Hemoglobin C Crystals Not Reportable 11/12/21 06:55 Schistocytes Not Reportable 11/12/21 06:55 Malaria parasites Not Reportable 11/12/21 06:55 Nam Bodies Not Reportable 11/12/21 06:55 Hem Pathologist Commnt No 11/12/21 06:55 ABG pH 7.378 pH Units (7.350-7.450) 11/16/21 04:05 ABG pCO2 44.6 mm Hg 11/16/21 04:05 ABG pO2 115.6 mm Hg (80.0-90.0) H 11/16/21 04:05 ABG HCO3 25.7 mmol/L (20.0-26.0) 11/16/21 04:05 ABG O2 Saturation 98.1 % (95.0-99.0) 11/16/21 04:05 ABG O2 Content 11.2 (0.0-44) 11/16/21 04:05 ABG Base Excess 0.4 mmol/L (-2.0-3.0) 11/16/21 04:05 ABG Hemoglobin 8.1 gm/dl (14.0-18.0) L 11/16/21 04:05 ABG Carboxyhemoglobin 1.0 % (0.0-5.0) 11/16/21 04:05 ABG Methemoglobin 0.4 % (0.0-1.5) 11/16/21 04:05 Oxyhemoglobin 96.6 % (95.0-99.0) 11/16/21 04:05 FiO2 60 % 11/16/21 04:05 Sodium 138 mmol/L (137-145) 11/16/21 04:00 Potassium 3.7 mmol/L (3.6-5.0) 11/16/21 04:00 Chloride 98.4 mmol/L (98-107) 11/16/21 04:00 Carbon Dioxide 24 mmol/L (22-30) 11/16/21 04:00 Anion Gap 19 mmol/L 11/16/21 04:00 BUN 44 mg/dL (9-20) H 11/16/21 04:00 Creatinine 7.7 mg/dL (0.8-1.3) H 11/16/21 04:00 Estimated GFR 9 ml/min 11/16/21 04:00 BUN/Creatinine Ratio 6 % 11/16/21 04:00 Glucose 104 mg/dL (75-100) H 11/16/21 04:00 POC Glucose 98 mg/dL (70-105) 11/16/21 05:41 Hemoglobin A1c 5.7 % (4-6) 11/12/21 06:55 Lactic Acid 0.90 mmol/L (0.7-2.0) 11/11/21 19:49 Calcium 7.9 mg/dL (8.4-10.2) L 11/16/21 04:00 Phosphorus 4.40 mg/dL (2.5-4.5) D 11/16/21 04:00 Magnesium 1.90 mg/dL (1.7-2.3) 11/16/21 04:00 Iron 24 ug/dL (49-181) L 11/11/21 23:29 TIBC 157 mcg/dL (250-450) L 11/11/21 23:29 Total Bilirubin 0.40 mg/dL (0.1-1.2) 11/11/21 19:49 AST 10 units/L (5-40) 11/11/21 19:49 ALT 7 units/L (7-56) 11/11/21 19:49 Alkaline Phosphatase 111 units/L (35-129) 11/11/21 19:49 Total Creatine Kinase 268 units/L (55-170) H 11/11/21 23:29 Troponin T 0.313 ng/mL (0.00-0.029) H* 11/12/21 22:30 NT-Pro-B Natriuret Pep 3674 pg/mL (0-900) H 11/12/21 Unknown Total Protein 9.1 g/dL (6.3-8.2) H 11/11/21 19:49 Albumin 3.0 g/dL (3.9-5) L 11/11/21 19:49 Albumin/Globulin Ratio 0.5 % 11/11/21 19:49 Triglycerides 79 mg/dL (2-149) 11/11/21 19:49 Cholesterol 146 mg/dL (50-199) 11/11/21 19:49 LDL Cholesterol Direct 85 mg/dL (50-130) 11/11/21 19:49 HDL Cholesterol 43 mg/dL (40-59) 11/11/21 19:49 Cholesterol/HDL Ratio 3.39 % 11/11/21 19:49 PTH Intact 1174 pg/mL (15-65) H 11/11/21 23:29 Urine Color Yellow (Yellow) 11/12/21 02:20 Urine Turbidity Cloudy (Clear) 11/12/21 02:20 Urine pH 5.0 (5.0-7.0) 11/12/21 02:20 Ur Specific [place] 1.013 (1.003-1.030) 11/12/21 02:20 Urine Protein >500 mg/dL (Negative) 11/12/21 02:20 Urine Glucose (UA) Neg mg/dL (Negative) 11/12/21 02:20 Urine Ketones Neg mg/dL (Negative) 11/12/21 02:20 Urine Blood Sm (Negative) 11/12/21 02:20 Urine Nitrite Neg (Negative) 11/12/21 02:20 Urine Bilirubin Neg (Negative) 11/12/21 02:20 Urine Urobilinogen < 2.0 mg/dL (<2.0) 11/12/21 02:20 Ur Leukocyte Esterase Tr (Negative) 11/12/21 02:20 Urine WBC (Auto) 12.0 /HPF (0.0-6.0) H 11/12/21 02:20 Urine RBC (Auto) 4.0 /HPF (0.0-6.0) 11/12/21 02:20 U Epithel Cells (Auto) 9.0 /HPF (0-13.0) 11/12/21 02:20 Urine Bacteria (Auto) 2+ /HPF (Negative) 11/12/21 02:20 Urine Mucus Few /HPF 11/12/21 02:20 Urine Yeast (Budding) 3+ /HPF 11/12/21 02:20 Urine Eosinophils None seen (None Seen) 11/12/21 02:20 Urine Creatinine 189.3 mg/dL (0.1-20.0) H 11/12/21 02:20 Urine Sodium 30 mmol/L 11/12/21 02:20 Hepatitis A IgM Ab Non-reactive (NonReactive) 11/12/21 04:45 Hep Bs Antigen Non-reactive (Negative) 11/12/21 04:45 Hep B Core IgM Ab Non-reactive (NonReactive) 11/12/21 04:45 Hepatitis C Antibody Non-reactive (NonReactive) 11/12/21 04:45 Iglesias/IV: Voiding Method Incontinent Active Medications - Current Medications Current Medications: Generic Name Dose Route Start Last Admin Trade Name Freq PRN Reason Stop Dose Admin Acetaminophen 650 mg 11/11/21 22:40 Acetaminophen 325 Mg Tab PO Q4H PRN Pain MILD(1-3)/Fever >100.5/SOTO Albuterol 2.5 mg 11/11/21 22:40 Albuterol 2.5 Mg/3 Ml Nebu IH Q3HRT PRN Shortness Of Breath Aspirin 325 mg 11/12/21 10:00 11/16/21 09:01 Aspirin 325 Mg Tab PO 325 mg QDAY BAO Administration Atorvastatin Calcium 40 mg 11/12/21 22:00 11/15/21 21:10 Atorvastatin 40 Mg Tab PO 40 mg QHS BAO Administration Dextrose 0 ml 11/11/21 23:03 Dextrose 10% *Hypoglycemia IV PRN PRN Hypoglycemia Docusate Sodium 100 mg 11/12/21 22:00 11/16/21 09:00 Docusate Sodium 100 Mg/10 Ml Oral Liqd PO 100 mg BID BAO Administration Famotidine 20 mg 11/13/21 10:00 11/16/21 09:01 Famotidine 20 Mg Tab PO 20 mg QDAY BAO Administration Fentanyl 50 mcg 11/11/21 20:56 11/12/21 00:12 Fentanyl 100 Mcg/2 Ml Inj IV 50 mcg Q10MIN PRN Administration ANALGESIA Heparin Sodium (Porcine) 5,000 unit 11/12/21 10:00 11/16/21 09:01 Heparin 5,000 Unit/1 Ml Vial SUB-Q 5,000 unit Q12HR BAO Administration Hydrophilic Ointment 1 applic 11/11/21 20:56 Lip Therapy Vaseline TP Q2HR PRN Dry Lips Fentanyl Citrate 2,000 mcg in 100 mls @ 13.608 mls/hr 11/11/21 21:00 11/16/21 08:59 Fentanyl Drip Premix IV 1 mcg/kg/hr TITR BAO 13.608 mls/hr Administration Protocol 1 MCG/KG/HR NORepinephrine/NS 8 MG-250 ML 8 mg in 250 mls @ 3.75 mls/hr 11/11/21 23:00 11/14/21 02:49 Norepinephrine/Ns 8 Mg-250 Ml (Double Conc) IV 4 mcg/min TITRATE BAO 7.5 mls/hr Administration Protocol 2 MCG/MIN Propofol 1,000 mg in 100 mls @ 8.166 mls/hr 11/13/21 09:00 11/16/21 09:00 Diprivan 10 Mg/Ml IV 8 mcg/kg/min TITR BAO 13.066 mls/hr Administration Protocol 5 MCG/KG/MIN Sodium Chloride 100 mls @ 999 mls/hr 11/16/21 10:22 Nacl 0.9% IV LONG PRN Hypotension Insulin Human Lispro 0 unit 11/12/21 00:00 11/16/21 05:46 Insulin Lispro 100 Unit/Ml SUB-Q Not Given Q6HR [facility] Protocol Multi-Ingred Cream/Lotion/Oil/Oint 1 applic 11/11/21 20:56 Mineral Oil/Petrolatum, White Ophth Oint 3.5 Gm OU Q4HR PRN Dry Eye(s) Ondansetron HCl 4 mg 11/11/21 22:40 Ondansetron 4 Mg/2 Ml Inj IV Q8H PRN Nausea And Vomiting Sodium Chloride 10 ml 11/12/21 10:00 11/16/21 09:02 Sodium Chloride 0.9% 10 Ml Flush Syringe IV 10 ml BID BAO Administration Sodium Chloride 10 ml 11/11/21 22:40 Sodium Chloride 0.9% 10 Ml Flush Syringe IV PRN PRN LINE FLUSH Nutrition/Malnutrition Assess - Dietary Evaluation Nutrition/Malnutrition Findings: Nutrition Notes Start: 11/12/21 16:08 Freq: Status: Active Protocol: Document 11/14/21 15:39 TODD (Rec: 11/14/21 15:45 TODD [id number]) Nutrition Notes Initial or Follow up Reassessment Current Diagnosis Diabetes,Hypertension, Respiratory Failure Other Pertinent Diagnosis Acute renal failure (on HD), pneu Current Diet TF - Nepro at 50ml/hr Labs/Tests K 3 BUN 41 Cr 7 Mg 1.6 Pertinent Medications Mg sulfate x 1 dose, Levophed gtt, 20mEq KCl x 1 dose Height 5 ft 9 in Weight 272.2 kg [place] Body Weight (kg) 72.72 BMI 88.6 Weight Status Morbidly Obese Subjective/Other Information Observed Nepro infusing at goal rate. Per RN, pt tolerating TF. Pt remains on vent support. Percent of energy/protein needs met: 99% energy 53% pro Burn Absent Trauma Absent #1 Nutrition Diagnosis Inadequate oral intake Diagnosis Progress(for reassessment Continues documentation) Is patient on ventilator? Yes Is Patient Ambulatory and/or Out of Bed No REE-([facility]-confined to bed) 4258.860 Kcal/Kg value to use for calculation 8 Approximate Energy Requirements Using 2178 kcal/Kg Additional Notes Pro needs up to 2.5g/kg IBW: 182g/day Fluid needs 1-1.5L/day Nutrition Intervention Nutrition Support: Continue Nepro at 50ml/hr with 200ml water flush q4h. Kcal 2,160 Protein (gm) 97 Carbohydrates (gm) 193 Fat (gm) 115 Fluid (mL) 872 Fiber (gm) 15 Goal #1 TF tolerance Goal #2 TF to meet at least 75% energy and pro needs Follow-Up By: 11/21/21 Additional Comments F/U: stable TF, vent status, wt <AMADO YODER - Last Filed: 11/17/21 07:06> Assessment and Plan Assessment and plan: I saw and evaluated the patient. I agree with the findings and the plan of care as documented in the Nurse Practitioner's~note, with the following corrections and additions. Hospitalist Physical - Constitutional Vitals: Temp Pulse Resp BP Pulse Ox 97.8 F 83 19 133/84 96 11/17/21 04:00 11/17/21 06:00 11/17/21 06:00 11/17/21 06:00 11/17/21 06:00 HEART Score - HEART Score Troponin: Troponin T 0.313 ng/mL (0.00-0.029) H* 11/12/21 22:30 Results - Labs CBC & Chem 7: 11/17/21 04:15 11/17/21 04:15 Labs: Laboratory Last Values WBC 11.8 K/mm3 (4.5-11.0) H 11/17/21 04:15 RBC 3.02 M/mm3 (3.65-5.03) L 11/17/21 04:15 Hgb 8.1 gm/dl (11.8-15.2) L 11/17/21 04:15 Hct 26.9 % (35.5-45.6) L 11/17/21 04:15 MCV 89 fl (84-94) 11/17/21 04:15 MCH 27 pg (28-32) L 11/17/21 04:15 MCHC 30 % (32-34) L 11/17/21 04:15 RDW 18.9 % (13.2-15.2) H 11/17/21 04:15 Plt Count 223 K/mm3 (140-440) 11/17/21 04:15 Lymph % (Auto) 10.0 % (13.4-35.0) L 11/11/21 19:49 [place] % (Auto) 8.8 % (0.0-7.3) H 11/11/21 19:49 Eos % (Auto) 0.9 % (0.0-4.3) 11/11/21 19:49 Baso % (Auto) 0.5 % (0.0-1.8) 11/11/21 19:49 Lymph # (Auto) 1.1 K/mm3 (1.2-5.4) L 11/11/21 19:49 [place] # (Auto) 1.0 K/mm3 (0.0-0.8) H 11/11/21 19:49 Eos # (Auto) 0.1 K/mm3 (0.0-0.4) 11/11/21 19:49 Baso # (Auto) 0.1 K/mm3 (0.0-0.1) 11/11/21 19:49 Add Manual Diff Complete 11/12/21 06:55 Total Counted 100 11/12/21 06:55 Seg Neutrophils % Inbound Call Center Representative 11/12/21 06:55 Seg Neuts % (Manual) 89.0 % (40.0-70.0) H 11/12/21 06:55 Band Neutrophils % 5.0 % 11/12/21 06:55 Lymphocytes % (Manual) 0 % (13.4-35.0) L 11/12/21 06:55 Reactive Lymphs % (Man) 0 % 11/12/21 06:55 Monocytes % (Manual) 3.0 % (0.0-7.3) 11/12/21 06:55 Eosinophils % (Manual) 0 % (0.0-4.3) 11/12/21 06:55 Basophils % (Manual) 0 % (0.0-1.8) 11/12/21 06:55 Metamyelocytes % 3.0 % 11/12/21 06:55 Myelocytes % 0 % 11/12/21 06:55 Promyelocytes % 0 % 11/12/21 06:55 Blast Cells % 0 % 11/12/21 06:55 Nucleated RBC % Not Reportable 11/12/21 06:55 Seg Neutrophils # 9.2 K/mm3 (1.8-7.7) H 11/11/21 19:49 Seg Neutrophils # Man 18.2 K/mm3 (1.8-7.7) H 11/12/21 06:55 Band Neutrophils # 1.0 K/mm3 11/12/21 06:55 Lymphocytes # (Manual) 0.0 K/mm3 (1.2-5.4) L 11/12/21 06:55 Abs React Lymphs (Man) 0.0 K/mm3 11/12/21 06:55 Monocytes # (Manual) 0.6 K/mm3 (0.0-0.8) 11/12/21 06:55 Eosinophils # (Manual) 0.0 K/mm3 (0.0-0.4) 11/12/21 06:55 Basophils # (Manual) 0.0 K/mm3 (0.0-0.1) 11/12/21 06:55 Metamyelocytes # 0.6 K/mm3 11/12/21 06:55 Myelocytes # 0.0 K/mm3 11/12/21 06:55 Promyelocytes # 0.0 K/mm3 11/12/21 06:55 Blast Cells # 0.0 K/mm3 11/12/21 06:55 WBC Morphology Not Reportable 11/12/21 06:55 Hypersegmented Neuts Not Reportable 11/12/21 06:55 Hyposegmented Neuts Not Reportable 11/12/21 06:55 Hypogranular Neuts Not Reportable 11/12/21 06:55 Smudge Cells Not Reportable 11/12/21 06:55 Toxic Granulation 1+ 11/12/21 06:55 Toxic Vacuolation Not Reportable 11/12/21 06:55 Dohle Bodies Not Reportable 11/12/21 06:55 Pelger-Huet Anomaly Not Reportable 11/12/21 06:55 Lissa Rods Not Reportable 11/12/21 06:55 Platelet Estimate Consistent w auto 11/12/21 06:55 Clumped Platelets Not Reportable 11/12/21 06:55 Plt Clumps, EDTA Not Reportable 11/12/21 06:55 Large Platelets Not Reportable 11/12/21 06:55 Giant Platelets Not Reportable 11/12/21 06:55 Platelet Satelliting Not Reportable 11/12/21 06:55 Plt Morphology Comment Not Reportable 11/12/21 06:55 RBC Morphology Normal 11/12/21 06:55 Dimorphic RBCs Not Reportable 11/12/21 06:55 Polychromasia Not Reportable 11/12/21 06:55 Hypochromasia Not Reportable 11/12/21 06:55 Poikilocytosis Not Reportable 11/12/21 06:55 Anisocytosis Not Reportable 11/12/21 06:55 Microcytosis Not Reportable 11/12/21 06:55 Macrocytosis Not Reportable 11/12/21 06:55 Spherocytes Not Reportable 11/12/21 06:55 Pappenheimer Bodies Not Reportable 11/12/21 06:55 Sickle Cells Not Reportable 11/12/21 06:55 Target Cells Not Reportable 11/12/21 06:55 Tear Drop Cells Not Reportable 11/12/21 06:55 Ovalocytes Not Reportable 11/12/21 06:55 Helmet Cells Not Reportable 11/12/21 06:55 Shea-[place]in[place] Bodies Not Reportable 11/12/21 06:55 [place] Rings Not Reportable 11/12/21 06:55 Tuttle Cells Not Reportable 11/12/21 06:55 Bite Cells Not Reportable 11/12/21 06:55 Crenated Cell Not Reportable 11/12/21 06:55 Elliptocytes Not Reportable 11/12/21 06:55 Acanthocytes (Spur) Not Reportable 11/12/21 06:55 Rouleaux Not Reportable 11/12/21 06:55 Hemoglobin C Crystals Not Reportable 11/12/21 06:55 Schistocytes Not Reportable 11/12/21 06:55 Malaria parasites Not Reportable 11/12/21 06:55 Nam Bodies Not Reportable 11/12/21 06:55 Hem Pathologist Commnt No 11/12/21 06:55 ABG pH 7.412 pH Units (7.350-7.450) 11/17/21 04:25 ABG pCO2 41.3 mm Hg 11/17/21 04:25 ABG pO2 153.8 mm Hg (80.0-90.0) H 11/17/21 04:25 ABG HCO3 25.7 mmol/L (20.0-26.0) 11/17/21 04:25 ABG O2 Saturation 98.9 % (95.0-99.0) 11/17/21 04:25 ABG O2 Content 11.7 (0.0-44) 11/17/21 04:25 ABG Base Excess 1.0 mmol/L (-2.0-3.0) 11/17/21 04:25 ABG Hemoglobin 8.3 gm/dl (14.0-18.0) L 11/17/21 04:25 ABG Carboxyhemoglobin 1.1 % (0.0-5.0) 11/17/21 04:25 ABG Methemoglobin 0.4 % (0.0-1.5) 11/17/21 04:25 Oxyhemoglobin 97.4 % (95.0-99.0) 11/17/21 04:25 FiO2 40 % 11/17/21 04:25 Sodium 139 mmol/L (137-145) 11/17/21 04:15 Potassium 3.6 mmol/L (3.6-5.0) 11/17/21 04:15 Chloride 101.1 mmol/L (98-107) 11/17/21 04:15 Carbon Dioxide 25 mmol/L (22-30) 11/17/21 04:15 Anion Gap 17 mmol/L 11/17/21 04:15 BUN 33 mg/dL (9-20) H 11/17/21 04:15 Creatinine 6.2 mg/dL (0.8-1.3) H 11/17/21 04:15 Estimated GFR 11 ml/min 11/17/21 04:15 BUN/Creatinine Ratio 5 % 11/17/21 04:15 Glucose 118 mg/dL (75-100) H 11/17/21 04:15 POC Glucose 103 mg/dL (70-105) 11/17/21 05:04 Hemoglobin A1c 5.7 % (4-6) 11/12/21 06:55 Lactic Acid 0.90 mmol/L (0.7-2.0) 11/11/21 19:49 Calcium 8.5 mg/dL (8.4-10.2) 11/17/21 04:15 Phosphorus 4.40 mg/dL (2.5-4.5) D 11/16/21 04:00 Magnesium 1.90 mg/dL (1.7-2.3) 11/16/21 04:00 Iron 24 ug/dL (49-181) L 11/11/21 23:29 TIBC 157 mcg/dL (250-450) L 11/11/21 23:29 Total Bilirubin 0.40 mg/dL (0.1-1.2) 11/11/21 19:49 AST 10 units/L (5-40) 11/11/21 19:49 ALT 7 units/L (7-56) 11/11/21 19:49 Alkaline Phosphatase 111 units/L (35-129) 11/11/21 19:49 Total Creatine Kinase 268 units/L (55-170) H 11/11/21 23:29 Troponin T 0.313 ng/mL (0.00-0.029) H* 11/12/21 22:30 NT-Pro-B Natriuret Pep 3674 pg/mL (0-900) H 11/12/21 Unknown Total Protein 9.1 g/dL (6.3-8.2) H 11/11/21 19:49 Albumin 3.0 g/dL (3.9-5) L 11/11/21 19:49 Albumin/Globulin Ratio 0.5 % 11/11/21 19:49 Triglycerides 79 mg/dL (2-149) 11/11/21 19:49 Cholesterol 146 mg/dL (50-199) 11/11/21 19:49 LDL Cholesterol Direct 85 mg/dL (50-130) 11/11/21 19:49 HDL Cholesterol 43 mg/dL (40-59) 11/11/21 19:49 Cholesterol/HDL Ratio 3.39 % 11/11/21 19:49 PTH Intact 1174 pg/mL (15-65) H 11/11/21 23:29 Urine Color Yellow (Yellow) 11/12/21 02:20 Urine Turbidity Cloudy (Clear) 11/12/21 02:20 Urine pH 5.0 (5.0-7.0) 11/12/21 02:20 Ur Specific [place] 1.013 (1.003-1.030) 11/12/21 02:20 Urine Protein >500 mg/dL (Negative) 11/12/21 02:20 Urine Glucose (UA) Neg mg/dL (Negative) 11/12/21 02:20 Urine Ketones Neg mg/dL (Negative) 11/12/21 02:20 Urine Blood Sm (Negative) 11/12/21 02:20 Urine Nitrite Neg (Negative) 11/12/21 02:20 Urine Bilirubin Neg (Negative) 11/12/21 02:20 Urine Urobilinogen < 2.0 mg/dL (<2.0) 11/12/21 02:20 Ur Leukocyte Esterase Tr (Negative) 11/12/21 02:20 Urine WBC (Auto) 12.0 /HPF (0.0-6.0) H 11/12/21 02:20 Urine RBC (Auto) 4.0 /HPF (0.0-6.0) 11/12/21 02:20 U Epithel Cells (Auto) 9.0 /HPF (0-13.0) 11/12/21 02:20 Urine Bacteria (Auto) 2+ /HPF (Negative) 11/12/21 02:20 Urine Mucus Few /HPF 11/12/21 02:20 Urine Yeast (Budding) 3+ /HPF 11/12/21 02:20 Urine Eosinophils None seen (None Seen) 11/12/21 02:20 Urine Creatinine 189.3 mg/dL (0.1-20.0) H 11/12/21 02:20 Urine Sodium 30 mmol/L 11/12/21 02:20 Hepatitis A IgM Ab Non-reactive (NonReactive) 11/12/21 04:45 Hep Bs Antigen Non-reactive (Negative) 11/12/21 04:45 Hep B Core IgM Ab Non-reactive (NonReactive) 11/12/21 04:45 Hepatitis C Antibody Non-reactive (NonReactive) 11/12/21 04:45 Iglesias/IV: Voiding Method Incontinent Active Medications - Current Medications Current Medications: Generic Name Dose Route Start Last Admin Trade Name Freq PRN Reason Stop Dose Admin Acetaminophen 650 mg 11/11/21 22:40 Acetaminophen 325 Mg Tab PO Q4H PRN Pain MILD(1-3)/Fever >100.5/SOTO Albuterol 2.5 mg 11/11/21 22:40 Albuterol 2.5 Mg/3 Ml Nebu IH Q3HRT PRN Shortness Of Breath Aspirin 325 mg 11/12/21 10:00 11/16/21 09:01 Aspirin 325 Mg Tab PO 325 mg QDAY BAO Administration Atorvastatin Calcium 40 mg 11/12/21 22:00 11/16/21 21:17 Atorvastatin 40 Mg Tab PO 40 mg QHS BAO Administration Dextrose 0 ml 11/11/21 23:03 Dextrose 10% *Hypoglycemia IV PRN PRN Hypoglycemia Docusate Sodium 100 mg 11/12/21 22:00 11/16/21 21:17 Docusate Sodium 100 Mg/10 Ml Oral Liqd PO 100 mg BID BAO Administration Famotidine 20 mg 11/13/21 10:00 11/16/21 09:01 Famotidine 20 Mg Tab PO 20 mg QDAY BAO Administration Fentanyl 50 mcg 11/11/21 20:56 11/12/21 00:12 Fentanyl 100 Mcg/2 Ml Inj IV 50 mcg Q10MIN PRN Administration ANALGESIA Heparin Sodium (Porcine) 5,000 unit 11/12/21 10:00 11/16/21 21:17 Heparin 5,000 Unit/1 Ml Vial SUB-Q 5,000 unit Q12HR BAO Administration Hydrophilic Ointment 1 applic 11/11/21 20:56 Lip Therapy Vaseline TP Q2HR PRN Dry Lips Fentanyl Citrate 2,000 mcg in 100 mls @ 13.608 mls/hr 11/11/21 21:00 11/17/21 06:03 Fentanyl Drip Premix IV 2 mcg/kg/hr TITR BAO 27.216 mls/hr Administration Protocol 1 MCG/KG/HR NORepinephrine/NS 8 MG-250 ML 8 mg in 250 mls @ 3.75 mls/hr 11/11/21 23:00 11/17/21 02:00 Norepinephrine/Ns 8 Mg-250 Ml (Double Conc) IV 2 mcg/min TITRATE BAO 3.75 mls/hr Titration Protocol 2 MCG/MIN Propofol 1,000 mg in 100 mls @ 8.166 mls/hr 11/13/21 09:00 11/17/21 06:03 Diprivan 10 Mg/Ml IV 8 mcg/kg/min TITR BAO 13.066 mls/hr Titration Protocol 5 MCG/KG/MIN Sodium Chloride 100 mls @ 999 mls/hr 11/16/21 10:22 Nacl 0.9% IV LONG PRN Hypotension Insulin Human Lispro 0 unit 11/12/21 00:00 11/17/21 06:13 Insulin Lispro 100 Unit/Ml SUB-Q Not Given Q6HR [facility] Protocol Multi-Ingred Cream/Lotion/Oil/Oint 1 applic 11/11/21 20:56 Mineral Oil/Petrolatum, White Ophth Oint 3.5 Gm OU Q4HR PRN Dry Eye(s) Ondansetron HCl 4 mg 11/11/21 22:40 Ondansetron 4 Mg/2 Ml Inj IV Q8H PRN Nausea And Vomiting Sodium Chloride 10 ml 11/12/21 10:00 11/16/21 21:17 Sodium Chloride 0.9% 10 Ml Flush Syringe IV 10 ml BID BAO Administration Sodium Chloride 10 ml 11/11/21 22:40 Sodium Chloride 0.9% 10 Ml Flush Syringe IV PRN PRN LINE FLUSH Nutrition/Malnutrition Assess - Dietary Evaluation Nutrition/Malnutrition Findings: Nutrition Notes Start: 11/12/21 16:08 Freq: Status: Active Protocol: Document 11/14/21 15:39 TODD (Rec: 11/14/21 15:45 TODD [id number]) Nutrition Notes Initial or Follow up Reassessment Current Diagnosis Diabetes,Hypertension, Respiratory Failure Other Pertinent Diagnosis Acute renal failure (on HD), pneu Current Diet TF - Nepro at 50ml/hr Labs/Tests K 3 BUN 41 Cr 7 Mg 1.6 Pertinent Medications Mg sulfate x 1 dose, Levophed gtt, 20mEq KCl x 1 dose Height 5 ft 9 in Weight 272.2 kg [place] Body Weight (kg) 72.72 BMI 88.6 Weight Status Morbidly Obese Subjective/Other Information Observed Nepro infusing at goal rate. Per RN, pt tolerating TF. Pt remains on vent support. Percent of energy/protein needs met: 99% energy 53% pro Burn Absent Trauma Absent #1 Nutrition Diagnosis Inadequate oral intake Diagnosis Progress(for reassessment Continues documentation) Is patient on ventilator? Yes Is Patient Ambulatory and/or Out of Bed No REE-([facility]-confined to bed) 4258.860 Kcal/Kg value to use for calculation 8 Approximate Energy Requirements Using 2178 kcal/Kg Additional Notes Pro needs up to 2.5g/kg IBW: 182g/day Fluid needs 1-1.5L/day Nutrition Intervention Nutrition Support: Continue Nepro at 50ml/hr with 200ml water flush q4h. Kcal 2,160 Protein (gm) 97 Carbohydrates (gm) 193 Fat (gm) 115 Fluid (mL) 872 Fiber (gm) 15 Goal #1 TF tolerance Goal #2 TF to meet at least 75% energy and pro needs Follow-Up By: 11/21/21 Additional Comments F/U: stable TF, vent status, wt
--- NOTE | 2021-11-16 10:49 | Progress Note ---
Assessment and Plan Assessment Acute respiratory failure Pneumonia Hypoxia KD (acute kidney injury) on top of CKD Hyperkalemia Diabetes Elevated troponin Hypertension Obesity Acidosis Plan -Renal labs reviewed. Serum creatinine 7.7 today, yesterday's was 5.9 -Hemodialysis today for UF and clearance, HD to be done daily ordered for now -Renal ultrasound- Left kidney no visualized. No hydronephrosis to right kidney -Intubated on Vent -Renally dose all medications -Obtain daily weights -Monitor I/O's daily -Assess dialysis needs daily -Plan of care reviewed by Dr. Ya Subjective Date of service: 11/16/21 Principal diagnosis: Acute respiratory failure, Interval history: Awake and Intubated. Sister at bedside. Reviewed renal plan with both. Objective - Vital Signs Vital signs: Vital Signs - 12hr 11/15/21 11/15/21 11/15/21 23:00 23:47 23:53 Temperature 97.6 F Pulse Rate 53 L 62 Pulse Rate [ From Monitor] Respiratory 22 Rate Blood Pressure 97/49 96/48 O2 Sat by Pulse 100 100 Oximetry 11/16/21 11/16/21 11/16/21 00:00 01:00 02:00 Temperature Pulse Rate 61 58 L 61 Pulse Rate [ 60 From Monitor] Respiratory 22 Rate Blood Pressure 113/66 101/51 126/75 O2 Sat by Pulse 94 100 100 Oximetry 11/16/21 11/16/21 11/16/21 03:00 03:57 04:00 Temperature 97.8 F Pulse Rate 64 65 Pulse Rate [ From Monitor] Respiratory 22 Rate Blood Pressure 126/75 111/60 O2 Sat by Pulse 100 100 Oximetry 11/16/21 11/16/21 11/16/21 04:27 05:00 06:00 Temperature Pulse Rate 72 65 63 Pulse Rate [ From Monitor] Respiratory 22 Rate Blood Pressure 125/71 114/58 110/53 O2 Sat by Pulse 100 100 98 Oximetry 11/16/21 11/16/21 11/16/21 07:00 08:00 08:42 Temperature 98.8 F Pulse Rate 60 69 75 Pulse Rate [ 69 From Monitor] Respiratory 22 22 Rate Blood Pressure 94/50 120/70 137/68 O2 Sat by Pulse 99 99 97 Oximetry 11/16/21 11/16/21 09:00 10:00 Temperature Pulse Rate 73 67 Pulse Rate [ From Monitor] Respiratory 22 22 Rate Blood Pressure 115/55 112/55 O2 Sat by Pulse 97 98 Oximetry - General Appearance General appearance: well-developed, appears stated age, obese, fatigue, other EENT: ATNC, PERRL Neck: no JVD, supple Respiratory: Present: Decreased Breath Sounds Cardiology: S1S2 Gastrointestinal: normoactive bowel sounds, obese Integumentary: warm and dry Neurologic: other (Awake but intubated) Musculoskeletal: joint swelling - Lab 11/16/21 04:00 11/16/21 04:00 Most recent lab results ABG pH 7.378 pH Units (7.350-7.450) 11/16/21 04:05 ABG pCO2 44.6 mm Hg 11/16/21 04:05 ABG pO2 115.6 mm Hg (80.0-90.0) H 11/16/21 04:05 ABG HCO3 25.7 mmol/L (20.0-26.0) 11/16/21 04:05 ABG O2 Saturation 98.1 % (95.0-99.0) 11/16/21 04:05 Calcium 7.9 mg/dL (8.4-10.2) L 11/16/21 04:00 Phosphorus 4.40 mg/dL (2.5-4.5) D 11/16/21 04:00 Magnesium 1.90 mg/dL (1.7-2.3) 11/16/21 04:00 Urine Creatinine 189.3 mg/dL (0.1-20.0) H 11/12/21 02:20 Urine Sodium 30 mmol/L 11/12/21 02:20 Medications & Allergies - Medications Allergies/Adverse Reactions: Allergies No Known Allergies Allergy (Verified 11/11/21 20:58) Active Medications: Generic Name Dose Route Start Last Admin Trade Name Freq PRN Reason Stop Dose Admin Acetaminophen 650 mg 11/11/21 22:40 Acetaminophen 325 Mg Tab PO Q4H PRN Pain MILD(1-3)/Fever >100.5/SOTO Albuterol 2.5 mg 11/11/21 22:40 Albuterol 2.5 Mg/3 Ml Nebu IH Q3HRT PRN Shortness Of Breath Aspirin 325 mg 11/12/21 10:00 11/16/21 09:01 Aspirin 325 Mg Tab PO 325 mg QDAY BAO Administration Atorvastatin Calcium 40 mg 11/12/21 22:00 11/15/21 21:10 Atorvastatin 40 Mg Tab PO 40 mg QHS BAO Administration Dextrose 0 ml 11/11/21 23:03 Dextrose 10% *Hypoglycemia IV PRN PRN Hypoglycemia Docusate Sodium 100 mg 11/12/21 22:00 11/16/21 09:00 Docusate Sodium 100 Mg/10 Ml Oral Liqd PO 100 mg BID BAO Administration Famotidine 20 mg 11/13/21 10:00 11/16/21 09:01 Famotidine 20 Mg Tab PO 20 mg QDAY BAO Administration Fentanyl 50 mcg 11/11/21 20:56 11/12/21 00:12 Fentanyl 100 Mcg/2 Ml Inj IV 50 mcg Q10MIN PRN Administration ANALGESIA Heparin Sodium (Porcine) 5,000 unit 11/12/21 10:00 11/16/21 09:01 Heparin 5,000 Unit/1 Ml Vial SUB-Q 5,000 unit Q12HR [facility] Administration Hydrophilic Ointment 1 applic 11/11/21 20:56 Lip Therapy Vaseline TP Q2HR PRN Dry Lips Fentanyl Citrate 2,000 mcg in 100 mls @ 13.608 mls/hr 11/11/21 21:00 11/16/21 08:59 Fentanyl Drip Premix IV 1 mcg/kg/hr TITR BAO 13.608 mls/hr Administration Protocol 1 MCG/KG/HR NORepinephrine/NS 8 MG-250 ML 8 mg in 250 mls @ 3.75 mls/hr 11/11/21 23:00 11/14/21 02:49 Norepinephrine/Ns 8 Mg-250 Ml (Double Conc) IV 4 mcg/min TITRATE BAO 7.5 mls/hr Administration Protocol 2 MCG/MIN Propofol 1,000 mg in 100 mls @ 8.166 mls/hr 11/13/21 09:00 11/16/21 09:00 Diprivan 10 Mg/Ml IV 8 mcg/kg/min TITR BAO 13.066 mls/hr Administration Protocol 5 MCG/KG/MIN Sodium Chloride 100 mls @ 999 mls/hr 11/16/21 10:22 Nacl 0.9% IV LONG PRN Hypotension Insulin Human Lispro 0 unit 11/12/21 00:00 11/16/21 05:46 Insulin Lispro 100 Unit/Ml SUB-Q Not Given Q6HR [facility] Protocol Multi-Ingred Cream/Lotion/Oil/Oint 1 applic 11/11/21 20:56 Mineral Oil/Petrolatum, White Ophth Oint 3.5 Gm OU Q4HR PRN Dry Eye(s) Ondansetron HCl 4 mg 11/11/21 22:40 Ondansetron 4 Mg/2 Ml Inj IV Q8H PRN Nausea And Vomiting Sodium Chloride 10 ml 11/12/21 10:00 11/16/21 09:02 Sodium Chloride 0.9% 10 Ml Flush Syringe IV 10 ml BID BAO Administration Sodium Chloride 10 ml 11/11/21 22:40 Sodium Chloride 0.9% 10 Ml Flush Syringe IV PRN PRN LINE FLUSH
--- NOTE | 2021-11-16 13:20 | Ultrasound Report ---
SOFT TISSUE HEAD AND NECK ULTRASOUND HISTORY: future tracheostomy placement. TECHNIQUE: Grayscale and color Doppler imaging performed. COMPARISON: None FINDINGS: A modified examination was performed for tracheostomy placement planning. The anterior bord er of the trachea is approximately 3 cm deep to the skin. There is no evidence for cervical mass, gwen nopathy or fluid collection. The thyroid gland is mildly enlarged. The right lobe measures 5.6 x 2.0 x 2.5 cm. The left lobe measu res 6.1 x 1.9 x 2.2 cm. The isthmus measures 0.5 cm in thickness. There is a solitary ill-defined nod ule in the inferior left thyroid lobe measuring 2.7 x 1.9 x 2.2 cm. IMPRESSION: Mild thyromegaly. 2.7 cm left thyroid lobe nodule. The trachea is approximately 3 cm deep to the skin. Signer Name: Phu Coley Jr, MD Signed: 11/16/2021 1:13 PM Workstation Name: [id number]
--- NOTE | 2021-11-16 13:22 | Ultrasound Report ---
LIMITED ABDOMINAL ULTRASOUND HISTORY: for future peg placement. TECHNIQUE: Grayscale and color Doppler imaging performed. COMPARISON: None FINDINGS: A modified examination was performed for surgical planning for PEG tube placement. Images o f the left upper quadrant were obtained. The left upper quadrant abdominal wall is approximately 9 cm deep to the skin surface. Detailed evaluation of internal structures was not obtained. IMPRESSION: The subcutaneous tissues in the left upper quadrant is 9 cm thick. Signer Name: Phu Coley Jr, MD Signed: 11/16/2021 1:15 PM Workstation Name: [id number]
[2021-11-16] MEDS: NORepinephrine/NS 8 MG-250 ML 8 MG/250 ML INFUS..BTL IV SCH (13:33)
--- NOTE | 2021-11-16 16:47 | Consultation ---
History of Present Illness Consult date: 11/16/21 Requesting physician: JAKE KRUEGER - History of present illness History of present illness: 56-year-old -[place] male with a BMI of 88. Patient has respiratory insufficiency and has required several reintubations. Is also with recent onset of hemodialysis for renal failure. Surgical consultation is for trach and PEG placement. Patient's girth is too large to fit in the CT scanner. Unable to obtain neck CT or abdominal CT to evaluate distances since they were changed by his morbid obesity. Ultrasound of the neck indicates the distance from the skin to mid trachea is about 3 cm. Ultrasound of the left upper quadrant shows the distance from skin to peritoneum is 9 cm. We will review distances available on [facility] in the OR and the PEG kit. Past History Past Medical History: diabetes, hypertension, other (chronic lymphedema) Past Surgical History: Other (Right hand surgery) Social history: denies: smoking Family history: no significant family history Medications and Allergies Allergies Allergy/AdvReac Type Severity Reaction Status Date / Time No Known Allergies Allergy Verified 11/11/21 20:58 Active Meds: Active Medications Acetaminophen (Acetaminophen 325 Mg Tab) 650 mg PO Q4H PRN PRN Reason: Pain MILD(1-3)/Fever >100.5/SOTO Albuterol (Albuterol 2.5 Mg/3 Ml Nebu) 2.5 mg IH Q3HRT PRN PRN Reason: Shortness Of Breath Aspirin (Aspirin 325 Mg Tab) 325 mg PO QDAY [facility] Last Admin: 11/16/21 09:01 Dose: 325 mg Atorvastatin Calcium (Atorvastatin 40 Mg Tab) 40 mg PO QHS [facility] Last Admin: 11/15/21 21:10 Dose: 40 mg Dextrose (Dextrose 10% *Hypoglycemia) 0 ml IV PRN PRN PRN Reason: Hypoglycemia Docusate Sodium (Docusate Sodium 100 Mg/10 Ml Oral Liqd) 100 mg PO BID [facility] Last Admin: 11/16/21 09:00 Dose: 100 mg Famotidine (Famotidine 20 Mg Tab) 20 mg PO QDAY [facility] Last Admin: 11/16/21 09:01 Dose: 20 mg Fentanyl (Fentanyl 100 Mcg/2 Ml Inj) 50 mcg IV Q10MIN PRN PRN Reason: ANALGESIA Last Admin: 11/12/21 00:12 Dose: 50 mcg Heparin Sodium (Porcine) (Heparin 5,000 Unit/1 Ml Vial) 5,000 unit SUB-Q Q12HR BAO Last Admin: 11/16/21 09:01 Dose: 5,000 unit Hydrophilic Ointment (Lip Therapy Vaseline) 1 applic TP Q2HR PRN PRN Reason: Dry Lips Fentanyl Citrate (Fentanyl Drip Premix) 2,000 mcg in 100 mls @ 13.608 mls/hr IV TITR BAO; Protocol Last Admin: 11/16/21 16:26 Dose: 1 mcg/kg/hr, 13.608 mls/hr NORepinephrine/NS 8 MG-250 ML (Norepinephrine/Ns 8 Mg-250 Ml (Double Conc)) 8 mg in 250 mls @ 3.75 mls/hr IV TITRATE BAO; Protocol Last Admin: 11/16/21 13:33 Dose: 2 mcg/min, 3.75 mls/hr Propofol (Diprivan 10 Mg/Ml) 1,000 mg in 100 mls @ 8.166 mls/hr IV TITR BAO; Protocol Last Titration: 11/16/21 16:38 Dose: 0 mcg/kg/min, 0 mls/hr Sodium Chloride (Nacl 0.9%) 100 mls @ 999 mls/hr IV LONG PRN PRN Reason: Hypotension Insulin Human Lispro (Insulin Lispro 100 Unit/Ml) 0 unit SUB-Q Q6HR BAO; Protocol Last Admin: 11/16/21 11:16 Dose: Not Given Multi-Ingred Cream/Lotion/Oil/Oint (Mineral Oil/Petrolatum, White Ophth Oint 3.5 Gm) 1 applic OU Q4HR PRN PRN Reason: Dry Eye(s) Ondansetron HCl (Ondansetron 4 Mg/2 Ml Inj) 4 mg IV Q8H PRN PRN Reason: Nausea And Vomiting Sodium Chloride (Sodium Chloride 0.9% 10 Ml Flush Syringe) 10 ml IV BID BAO Last Admin: 11/16/21 09:02 Dose: 10 ml Sodium Chloride (Sodium Chloride 0.9% 10 Ml Flush Syringe) 10 ml IV PRN PRN PRN Reason: LINE FLUSH Exam Vital Signs Temp Pulse Resp BP Pulse Ox 98.2 F 91 H 18 103/78 100 11/11/21 18:19 11/11/21 18:19 11/11/21 18:19 11/11/21 18:19 11/11/21 18:19 - General physical appearance Positive: well developed - Eyes Positive: PERRL - Neck Positive: no masses, no bruits, trachea midline - Respiratory Positive: normal expansion - Cardiovascular Rhythm: regular - Extremities Extremities: no ischemia Extremity abnormal: edema - Abdomen Abdomen: Present: soft. Absent: tender, distended, masses, rebound - Integumentary no rash Results - Labs 11/16/21 04:00 11/16/21 04:00 Abnormal lab results 11/15/21 11/16/21 11/16/21 Range/Units 16:20 04:00 04:00 WBC 13.2 H (4.5-11.0) K/mm3 RBC 2.88 L (3.65-5.03) M/mm3 Hgb 7.8 L (11.8-15.2) gm/dl Hct 25.2 L (35.5-45.6) % MCH 27 L (28-32) pg MCHC 31 L (32-34) % RDW 19.1 H (13.2-15.2) % ABG pH 7.335 L (7.350-7.450) pH Units ABG pO2 254.0 H (80.0-90.0) mm Hg ABG HCO3 26.2 H (20.0-26.0) mmol/L ABG O2 Saturation 99.4 H (95.0-99.0) % ABG Hemoglobin 8.5 L (14.0-18.0) gm/dl BUN 44 H (9-20) mg/dL Creatinine 7.7 H (0.8-1.3) mg/dL Glucose 104 H (75-100) mg/dL Calcium 7.9 L (8.4-10.2) mg/dL 11/16/21 Range/Units 04:05 WBC (4.5-11.0) K/mm3 RBC (3.65-5.03) M/mm3 Hgb (11.8-15.2) gm/dl Hct (35.5-45.6) % MCH (28-32) pg MCHC (32-34) % RDW (13.2-15.2) % ABG pH (7.350-7.450) pH Units ABG pO2 115.6 H (80.0-90.0) mm Hg ABG HCO3 (20.0-26.0) mmol/L ABG O2 Saturation (95.0-99.0) % ABG Hemoglobin 8.1 L (14.0-18.0) gm/dl BUN (9-20) mg/dL Creatinine (0.8-1.3) mg/dL Glucose (75-100) mg/dL Calcium (8.4-10.2) mg/dL Diabetes panel 11/16/21 Range/Units 04:00 Sodium 138 (137-145) mmol/L Potassium 3.7 (3.6-5.0) mmol/L Chloride 98.4 (98-107) mmol/L Carbon Dioxide 24 (22-30) mmol/L BUN 44 H (9-20) mg/dL Creatinine 7.7 H (0.8-1.3) mg/dL Glucose 104 H (75-100) mg/dL Calcium 7.9 L (8.4-10.2) mg/dL Calcium panel 11/16/21 Range/Units 04:00 Calcium 7.9 L (8.4-10.2) mg/dL Phosphorus 4.40 D (2.5-4.5) mg/dL Pituitary panel 11/16/21 Range/Units 04:00 Sodium 138 (137-145) mmol/L Potassium 3.7 (3.6-5.0) mmol/L Chloride 98.4 (98-107) mmol/L Carbon Dioxide 24 (22-30) mmol/L BUN 44 H (9-20) mg/dL Creatinine 7.7 H (0.8-1.3) mg/dL Glucose 104 H (75-100) mg/dL Calcium 7.9 L (8.4-10.2) mg/dL Adrenal panel 11/16/21 Range/Units 04:00 Sodium 138 (137-145) mmol/L Potassium 3.7 (3.6-5.0) mmol/L Chloride 98.4 (98-107) mmol/L Carbon Dioxide 24 (22-30) mmol/L BUN 44 H (9-20) mg/dL Creatinine 7.7 H (0.8-1.3) mg/dL Glucose 104 H (75-100) mg/dL Calcium 7.9 L (8.4-10.2) mg/dL Assessment and Plan 56-year-old -[place] male with a BMI of 88. Patient has respiratory insufficiency and has required several reintubations. Is also with recent onset of hemodialysis for renal failure. Surgical consultation is for trach and PEG placement. Patient's girth is too large to fit in the CT scanner. Unable to obtain neck CT or abdominal CT to evaluate distances since they were changed by his morbid obesity. Ultrasound of the neck indicates the distance from the skin to mid trachea is about 3 cm. Ultrasound of the left upper quadrant shows the distance from skin to peritoneum is 9 cm. We will review distances available on [facility] in the OR and the PEG kit.
[2021-11-17] MEDS: INSULIN LISPRO 100 UNIT/ML SUB-Q SCH ×4 (01:43→17:29)
[2021-11-17] MEDS: fentaNYL DRIP Premix 2,000 MCG/100 ML BAG IV SCH ×6 (02:30→21:10)
--- NOTE | 2021-11-17 04:21 | XRay Report ---
CHEST 1 VIEW INDICATION / CLINICAL INFORMATION: follow up respiratory failure. COMPARISON: Chest x-ray 11/16/2021 FINDINGS: SUPPORT DEVICES: Stable, satisfactory device positioning. HEART / MEDIASTINUM: Stable moderate cardiomegaly. LUNGS / PLEURA: Low lung volumes with bibasilar opacities minimal change in comparison given the diff erence in technique. The may be some improvement in vascular prominence within the central chest. No pneumothorax. BONES: No significant osseous abnormality. ADDITIONAL FINDINGS: No significant additional findings. IMPRESSION: 1. Overall appearance of the chest suggests minimal change given the difference in technique. There m ay be minimal decrease in central vascular prominence. Signer Name: Rubén Dc II, MD Signed: 11/17/2021 4:17 AM Workstation Name: [id number]
[2021-11-17 04:48] LABS: Hematocrit 26.9 % (35.5-45.6); Hemoglobin 8.1 gm/dl (11.8-15.2); Mean Corpuscular HGB Conc 30 % (32-34); Mean Corpuscular Volume 89 fl (84-94); Platelet Count 223 K/mm3 (140-440); Red Blood Count 3.02 M/mm3 (3.65-5.03); Red Cell Distribution Width 18.9 % (13.2-15.2)
[2021-11-17 04:56] LABS: ABG HCO3 25.7 mmol/L (20.0-26.0); ABG Methemoglobin 0.4 % (0.0-1.5); ABG Oxygen Saturation 98.9 % (95.0-99.0); ABG PCO2 41.3 mm Hg; ABG PH 7.412 pH Units (7.350-7.450); ABG PO2 153.8 mm Hg (80.0-90.0)
[2021-11-17 05:00] LABS: Calcium 8.5 mg/dL (8.4-10.2)
--- NOTE | 2021-11-17 09:24 | Progress Note ---
Assessment and Plan 56 y/o morbidly obese male with acute respiratory failure, requiring intubation and now in acute renal failure and in need of HD 11/17/21: Follow up Gen Sigala eval, they are checking to see the materials they have in OR. Reviewed neck ultrasound, per their read trachea is only about an 1inch away from the skin. Shocking given his neck size but given the difficulty in intubation and his entrance being anterior, this makes sense. Will defer to surgery call but have no problem with calling for transfer as well. Wean Pressors as tolerated. HD per renal. COntinue sedation for RASS of 0. Guarded to poor prognosis. 11/16/21: Given patient body habitus, difficult airway and likely no improvement in current clinical state, will need trach. However given his neck size, I would suggest this be done by ENT as I am not even sure that the bovona XLT is long enough. Ok to consult surgery here but I suggest seeking transfer to a [facility] facility with ENT to attempt this. Also suggest obtaining neck CT to further evaluate total neck anatomy that way if we need to send this over prior to acceptance we can. Guarded prognosis but mental status is intact. HD per renal. 11/15/21: stop sedation. Attempt PSV. Bipap PRN and QHS. Hopeful extubation today. HD per renal. 11/14/21: Wean PEEP again today and attempt PSV trial. If passes will attempt extubation. HD per renal 11/13/21: HD per renal. No PSV trials today. Wean PEEP after HD. Guarded prognosis. 1. Obtain ABG 2. Place Iglesias catheter 3. Wean Pressors for maps greater than 65 4. Insulin, D50 for Hyperkalemia, and HD per renal 5. Stopped scheduled duonebs 6. Stopped abx 7. Obtain BNP with morning labs 8. Guarded prognosis. CCT 31 minutes. Subjective Date of service: 11/17/21 Principal diagnosis: Acute respiratory failure, Interval history: Unable to fit in CT scanner. Neck ultrasound done. Gen Sigala did see and appreciate their evaluation. Objective Vital Signs - 12hr 11/16/21 11/16/21 11/16/21 21:31 21:45 22:01 Temperature Pulse Rate 75 67 73 Pulse Rate [ From Monitor] Respiratory 23 21 19 Rate Blood Pressure 108/54 108/54 108/54 O2 Sat by Pulse 98 98 98 Oximetry 11/16/21 11/16/21 11/16/21 22:07 22:15 22:31 Temperature Pulse Rate 68 67 74 Pulse Rate [ From Monitor] Respiratory 22 22 22 Rate Blood Pressure 108/54 108/54 108/54 O2 Sat by Pulse 98 99 99 Oximetry 11/16/21 11/16/21 11/16/21 22:45 23:00 23:15 Temperature Pulse Rate 74 76 95 H Pulse Rate [ From Monitor] Respiratory 22 22 22 Rate Blood Pressure 108/54 115/69 115/69 O2 Sat by Pulse 99 99 100 Oximetry 11/16/21 11/16/21 11/17/21 23:31 23:45 00:00 Temperature 98.3 F Pulse Rate 89 82 69 Pulse Rate [ 75 From Monitor] Respiratory 22 22 Rate Blood Pressure 115/69 160/79 114/66 O2 Sat by Pulse 96 94 96 Oximetry 11/17/21 11/17/21 11/17/21 00:08 00:15 00:30 Temperature Pulse Rate 62 59 L 52 L Pulse Rate [ From Monitor] Respiratory 22 22 Rate Blood Pressure 114/66 114/66 88/31 O2 Sat by Pulse 97 98 98 Oximetry 11/17/21 11/17/21 11/17/21 00:45 01:00 01:15 Temperature Pulse Rate 52 L 54 L 53 L Pulse Rate [ From Monitor] Respiratory 22 22 22 Rate Blood Pressure 140/82 112/60 115/65 O2 Sat by Pulse 100 100 100 Oximetry 11/17/21 11/17/21 11/17/21 01:30 01:45 02:00 Temperature Pulse Rate 76 55 L 54 L Pulse Rate [ From Monitor] Respiratory 22 22 22 Rate Blood Pressure 125/96 109/63 105/56 O2 Sat by Pulse 100 100 100 Oximetry 11/17/21 11/17/21 11/17/21 02:15 02:30 02:45 Temperature Pulse Rate 53 L 52 L 52 L Pulse Rate [ From Monitor] Respiratory 22 22 22 Rate Blood Pressure 107/60 110/62 113/65 O2 Sat by Pulse 100 100 100 Oximetry 11/17/21 11/17/21 11/17/21 03:00 03:15 03:30 Temperature Pulse Rate 52 L 54 L 55 L Pulse Rate [ From Monitor] Respiratory 22 22 22 Rate Blood Pressure 112/66 118/72 116/69 O2 Sat by Pulse 100 100 100 Oximetry 11/17/21 11/17/21 11/17/21 03:45 04:00 04:15 Temperature 97.8 F Pulse Rate 58 L 69 71 Pulse Rate [ 81 From Monitor] Respiratory Rate Blood Pressure 121/70 156/87 165/94 O2 Sat by Pulse 100 100 100 Oximetry 11/17/21 11/17/21 11/17/21 04:27 04:30 04:45 Temperature Pulse Rate 77 85 83 Pulse Rate [ From Monitor] Respiratory Rate Blood Pressure 130/73 164/82 135/72 O2 Sat by Pulse 96 99 97 Oximetry 11/17/21 11/17/21 11/17/21 05:00 05:15 05:30 Temperature Pulse Rate 84 79 75 Pulse Rate [ From Monitor] Respiratory 15 Rate Blood Pressure 130/73 134/68 124/71 O2 Sat by Pulse 96 94 94 Oximetry 11/17/21 11/17/21 11/17/21 05:45 06:00 06:15 Temperature Pulse Rate 66 83 62 Pulse Rate [ From Monitor] Respiratory Rate Blood Pressure 113/36 133/84 131/80 O2 Sat by Pulse 95 96 96 Oximetry 11/17/21 11/17/21 11/17/21 06:30 06:45 07:00 Temperature Pulse Rate 60 54 L 54 L Pulse Rate [ From Monitor] Respiratory Rate Blood Pressure 131/77 113/54 97/50 O2 Sat by Pulse 97 97 98 Oximetry 11/17/21 11/17/21 11/17/21 07:11 07:15 07:30 Temperature 98.1 F Pulse Rate 53 L 54 L Pulse Rate [ From Monitor] Respiratory Rate Blood Pressure 93/50 100/56 O2 Sat by Pulse 97 98 Oximetry 11/17/21 11/17/21 11/17/21 07:45 08:00 08:15 Temperature Pulse Rate 54 L 53 L 54 L Pulse Rate [ 54 L From Monitor] Respiratory 22 Rate Blood Pressure 101/59 99/57 100/52 O2 Sat by Pulse 99 99 99 Oximetry Constitutional: comatose Eyes: non-icteric ENT: other (orally intubated and sedated) Neck: supple, other (large in circumference) Effort: normal Ascultation: Bilateral: diminished breath sounds Cardiovascular: regular rate and rhythm Gastrointestinal: normoactive bowel sounds Extremities: edema, anasarca Neurologic: unable to assess CBC and BMP: 11/17/21 04:15 11/17/21 04:15 ABG, PT/INR, D-dimer: ABG ABG pH 7.412 pH Units (7.350-7.450) 11/17/21 04:25 ABG pCO2 41.3 mm Hg 11/17/21 04:25 ABG pO2 153.8 mm Hg (80.0-90.0) H 11/17/21 04:25 ABG O2 Saturation 98.9 % (95.0-99.0) 11/17/21 04:25 Abnormal lab findings: Abnormal Labs 11/11/21 11/11/21 11/11/21 19:49 19:49 23:29 WBC 11.5 H RBC Hgb 10.1 L Hct 34.8 L MCH 27 L MCHC 29 L RDW 20.1 H Lymph % (Auto) 10.0 L Gar[place] % (Auto) 8.8 H Lymph # (Auto) 1.1 L [place] # (Auto) 1.0 H Seg Neutrophils % 79.8 H Seg Neuts % (Manual) Lymphocytes % (Manual) Seg Neutrophils # 9.2 H Seg Neutrophils # Man Lymphocytes # (Manual) ABG pH ABG pO2 ABG HCO3 ABG O2 Saturation ABG Base Excess ABG Hemoglobin Sodium Potassium 7.6 H* Chloride 107.8 H Carbon Dioxide 13 L BUN 107 H Creatinine 13.8 H Glucose POC Glucose Calcium 7.5 L Phosphorus Magnesium Iron TIBC Total Creatine Kinase 268 H Troponin T 0.324 H* NT-Pro-B Natriuret Pep Total Protein 9.1 H Albumin 3.0 L PTH Intact Urine WBC (Auto) Urine Creatinine 11/11/21 11/11/21 11/12/21 23:29 23:29 02:20 WBC RBC Hgb Hct MCH MCHC RDW Lymph % (Auto) Gar[place] % (Auto) Lymph # (Auto) [place] # (Auto) Seg Neutrophils % Seg Neuts % (Manual) Lymphocytes % (Manual) Seg Neutrophils # Seg Neutrophils # Man Lymphocytes # (Manual) ABG pH ABG pO2 ABG HCO3 ABG O2 Saturation ABG Base Excess ABG Hemoglobin Sodium Potassium Chloride Carbon Dioxide BUN Creatinine Glucose POC Glucose Calcium Phosphorus Magnesium Iron 24 L TIBC 157 L Total Creatine Kinase Troponin T NT-Pro-B Natriuret Pep Total Protein Albumin PTH Intact 1174 H Urine WBC (Auto) Urine Creatinine 189.3 H 11/12/21 11/12/21 11/12/21 02:20 02:28 06:55 WBC 20.5 H RBC 3.54 L Hgb 9.4 L Hct 32.3 L MCH 27 L MCHC 29 L RDW 20.0 H Lymph % (Auto) [place] % (Auto) Lymph # (Auto) [place] # (Auto) Seg Neutrophils % Seg Neuts % (Manual) 89.0 H Lymphocytes % (Manual) 0 L Seg Neutrophils # Seg Neutrophils # Man 18.2 H Lymphocytes # (Manual) 0.0 L ABG pH 7.172 L* ABG pO2 100.6 H ABG HCO3 17.4 L ABG O2 Saturation ABG Base Excess -10.6 L ABG Hemoglobin 9.4 L Sodium Potassium Chloride Carbon Dioxide BUN Creatinine Glucose POC Glucose Calcium Phosphorus Magnesium Iron TIBC Total Creatine Kinase Troponin T NT-Pro-B Natriuret Pep Total Protein Albumin PTH Intact Urine WBC (Auto) 12.0 H Urine Creatinine 11/12/21 11/12/21 11/12/21 06:55 09:10 12:01 WBC RBC Hgb Hct MCH MCHC RDW Lymph % (Auto) [place] % (Auto) Lymph # (Auto) [place] # (Auto) Seg Neutrophils % Seg Neuts % (Manual) Lymphocytes % (Manual) Seg Neutrophils # Seg Neutrophils # Man Lymphocytes # (Manual) ABG pH 7.296 L ABG pO2 237.3 H ABG HCO3 ABG O2 Saturation 99.3 H ABG Base Excess -6.0 L ABG Hemoglobin 8.8 L Sodium Potassium 5.5 H D Chloride 107.1 H Carbon Dioxide 19 L BUN 78 H Creatinine 9.4 H Glucose 119 H POC Glucose 106 H Calcium 8.1 L Phosphorus Magnesium Iron TIBC Total Creatine Kinase Troponin T NT-Pro-B Natriuret Pep Total Protein Albumin PTH Intact Urine WBC (Auto) Urine Creatinine 11/12/21 11/12/21 11/12/21 16:46 16:46 22:30 WBC RBC Hgb Hct MCH MCHC RDW Lymph % (Auto) Garland % (Auto) Lymph # (Auto) [place] # (Auto) Seg Neutrophils % Seg Neuts % (Manual) Lymphocytes % (Manual) Seg Neutrophils # Seg Neutrophils # Man Lymphocytes # (Manual) ABG pH ABG pO2 ABG HCO3 ABG O2 Saturation ABG Base Excess ABG Hemoglobin Sodium 146 H Potassium Chloride 108.2 H Carbon Dioxide 21 L BUN 66 H Creatinine 9.8 H Glucose 125 H POC Glucose Calcium 7.8 L Phosphorus Magnesium Iron TIBC Total Creatine Kinase Troponin T 0.319 H* 0.313 H* NT-Pro-B Natriuret Pep Total Protein Albumin PTH Intact Urine WBC (Auto) Urine Creatinine 11/12/21 11/12/21 11/13/21 23:18 Unknown 04:00 WBC 17.2 H RBC 3.09 L Hgb 8.4 L Hct 27.5 L MCH 27 L MCHC 30 L RDW 19.6 H Lymph % (Auto) [place] % (Auto) Lymph # (Auto) [place] # (Auto) Seg Neutrophils % Seg Neuts % (Manual) Lymphocytes % (Manual) Seg Neutrophils # Seg Neutrophils # Man Lymphocytes # (Manual) ABG pH ABG pO2 ABG HCO3 ABG O2 Saturation ABG Base Excess ABG Hemoglobin Sodium Potassium Chloride Carbon Dioxide BUN Creatinine Glucose POC Glucose 120 H Calcium Phosphorus Magnesium Iron TIBC Total Creatine Kinase Troponin T NT-Pro-B Natriuret Pep 3674 H Total Protein Albumin PTH Intact Urine WBC (Auto) Urine Creatinine 11/13/21 11/13/21 11/13/21 04:00 04:00 05:23 WBC RBC Hgb Hct MCH MCHC RDW Lymph % (Auto) [place] % (Auto) Lymph # (Auto) [place] # (Auto) Seg Neutrophils % Seg Neuts % (Manual) Lymphocytes % (Manual) Seg Neutrophils # Seg Neutrophils # Man Lymphocytes # (Manual) ABG pH 7.274 L ABG pO2 93.2 H ABG HCO3 ABG O2 Saturation ABG Base Excess -3.9 L ABG Hemoglobin 8.2 L Sodium Potassium Chloride Carbon Dioxide 21 L BUN 71 H Creatinine 9.9 H Glucose 128 H POC Glucose 117 H Calcium 7.7 L Phosphorus 5.10 H Magnesium 1.60 L Iron TIBC Total Creatine Kinase Troponin T NT-Pro-B Natriuret Pep Total Protein Albumin PTH Intact Urine WBC (Auto) Urine Creatinine 11/13/21 11/13/21 11/14/21 16:20 23:31 04:10 WBC RBC Hgb Hct MCH MCHC RDW Lymph % (Auto) [place] % (Auto) Lymph # (Auto) [place] # (Auto) Seg Neutrophils % Seg Neuts % (Manual) Lymphocytes % (Manual) Seg Neutrophils # Seg Neutrophils # Man Lymphocytes # (Manual) ABG pH ABG pO2 107.1 H ABG HCO3 ABG O2 Saturation ABG Base Excess ABG Hemoglobin 6.5 L Sodium Potassium Chloride Carbon Dioxide BUN Creatinine Glucose POC Glucose 125 H 123 H Calcium Phosphorus Magnesium Iron TIBC Total Creatine Kinase Troponin T NT-Pro-B Natriuret Pep Total Protein Albumin PTH Intact Urine WBC (Auto) Urine Creatinine 11/14/21 11/14/21 11/14/21 06:30 06:30 15:00 WBC 11.2 H RBC 3.03 L Hgb 8.1 L Hct 26.6 L MCH 27 L MCHC 30 L RDW 19.3 H Lymph % (Auto) [place] % (Auto) Lymph # (Auto) [place] # (Auto) Seg Neutrophils % Seg Neuts % (Manual) Lymphocytes % (Manual) Seg Neutrophils # Seg Neutrophils # Man Lymphocytes # (Manual) ABG pH ABG pO2 ABG HCO3 ABG O2 Saturation ABG Base Excess ABG Hemoglobin Sodium Potassium 3.0 L D 3.4 L Chloride Carbon Dioxide BUN 41 H Creatinine 7.0 H Glucose 107 H POC Glucose Calcium 7.5 L Phosphorus Magnesium 1.60 L Iron TIBC Total Creatine Kinase Troponin T NT-Pro-B Natriuret Pep Total Protein Albumin PTH Intact Urine WBC (Auto) Urine Creatinine 11/14/21 11/15/21 11/15/21 17:24 04:00 04:00 WBC 11.3 H RBC 3.00 L Hgb 8.1 L Hct 26.3 L MCH 27 L MCHC 31 L RDW 19.2 H Lymph % (Auto) [place] % (Auto) Lymph # (Auto) [place] # (Auto) Seg Neutrophils % Seg Neuts % (Manual) Lymphocytes % (Manual) Seg Neutrophils # Seg Neutrophils # Man Lymphocytes # (Manual) ABG pH ABG pO2 ABG HCO3 ABG O2 Saturation ABG Base Excess ABG Hemoglobin Sodium Potassium 3.4 L Chloride Carbon Dioxide BUN 32 H Creatinine 5.9 H Glucose 117 H POC Glucose 124 H Calcium 8.3 L Phosphorus Magnesium Iron TIBC Total Creatine Kinase Troponin T NT-Pro-B Natriuret Pep Total Protein Albumin PTH Intact Urine WBC (Auto) Urine Creatinine 11/15/21 11/15/21 11/16/21 13:58 16:20 04:00 WBC 13.2 H RBC 2.88 L Hgb 7.8 L Hct 25.2 L MCH 27 L MCHC 31 L RDW 19.1 H Lymph % (Auto) [place] % (Auto) Lymph # (Auto) [place] # (Auto) Seg Neutrophils % Seg Neuts % (Manual) Lymphocytes % (Manual) Seg Neutrophils # Seg Neutrophils # Man Lymphocytes # (Manual) ABG pH 7.335 L ABG pO2 254.0 H ABG HCO3 26.2 H ABG O2 Saturation 99.4 H ABG Base Excess ABG Hemoglobin 8.5 L Sodium Potassium Chloride Carbon Dioxide BUN Creatinine Glucose POC Glucose 132 H Calcium Phosphorus Magnesium Iron TIBC Total Creatine Kinase Troponin T NT-Pro-B Natriuret Pep Total Protein Albumin PTH Intact Urine WBC (Auto) Urine Creatinine 11/16/21 11/16/21 11/16/21 04:00 04:05 11:06 WBC RBC Hgb Hct MCH MCHC RDW Lymph % (Auto) [place] % (Auto) Lymph # (Auto) [place] # (Auto) Seg Neutrophils % Seg Neuts % (Manual) Lymphocytes % (Manual) Seg Neutrophils # Seg Neutrophils # Man Lymphocytes # (Manual) ABG pH ABG pO2 115.6 H ABG HCO3 ABG O2 Saturation ABG Base Excess ABG Hemoglobin 8.1 L Sodium Potassium Chloride Carbon Dioxide BUN 44 H Creatinine 7.7 H Glucose 104 H POC Glucose 106 H Calcium 7.9 L Phosphorus Magnesium Iron TIBC Total Creatine Kinase Troponin T NT-Pro-B Natriuret Pep Total Protein Albumin PTH Intact Urine WBC (Auto) Urine Creatinine 11/16/21 11/16/21 11/17/21 18:05 23:51 04:15 WBC 11.8 H RBC 3.02 L Hgb 8.1 L Hct 26.9 L MCH 27 L MCHC 30 L RDW 18.9 H Lymph % (Auto) [place] % (Auto) Lymph # (Auto) [place] # (Auto) Seg Neutrophils % Seg Neuts % (Manual) Lymphocytes % (Manual) Seg Neutrophils # Seg Neutrophils # Man Lymphocytes # (Manual) ABG pH ABG pO2 ABG HCO3 ABG O2 Saturation ABG Base Excess ABG Hemoglobin Sodium Potassium Chloride Carbon Dioxide BUN Creatinine Glucose POC Glucose 109 H 118 H Calcium Phosphorus Magnesium Iron TIBC Total Creatine Kinase Troponin T NT-Pro-B Natriuret Pep Total Protein Albumin PTH Intact Urine WBC (Auto) Urine Creatinine 11/17/21 11/17/21 04:15 04:25 WBC RBC Hgb Hct MCH MCHC RDW Lymph % (Auto) [place] % (Auto) Lymph # (Auto) [place] # (Auto) Seg Neutrophils % Seg Neuts % (Manual) Lymphocytes % (Manual) Seg Neutrophils # Seg Neutrophils # Man Lymphocytes # (Manual) ABG pH ABG pO2 153.8 H ABG HCO3 ABG O2 Saturation ABG Base Excess ABG Hemoglobin 8.3 L Sodium Potassium Chloride Carbon Dioxide BUN 33 H Creatinine 6.2 H Glucose 118 H POC Glucose Calcium Phosphorus Magnesium Iron TIBC Total Creatine Kinase Troponin T NT-Pro-B Natriuret Pep Total Protein Albumin PTH Intact Urine WBC (Auto) Urine Creatinine Allied health notes reviewed: nursing
--- NOTE | 2021-11-17 09:56 | Progress Note ---
Assessment and Plan Acute respiratory failure Pneumonia Hypoxia KD (acute kidney injury) on top of CKD Hyperkalemia Diabetes Elevated troponin Hypertension Obesity Acidosis Plan -no signs of renal recover -cont daily HD for clearance and volume removal for now -Renal ultrasound- Left kidney no visualized. No hydronephrosis to right kidney -Intubated on Vent -Renally dose all medications -Obtain daily weights -Monitor I/O's daily -Assess dialysis needs daily Subjective Date of service: 11/17/21 Principal diagnosis: Acute respiratory failure, Interval history: in ICU, on pressor Objective - Vital Signs Vital signs: Vital Signs - 12hr 11/16/21 11/16/21 11/16/21 22:01 22:07 22:15 Temperature Pulse Rate 73 68 67 Pulse Rate [ From Monitor] Respiratory Rate Blood Pressure 108/54 108/54 108/54 O2 Sat by Pulse 98 98 99 Oximetry 11/16/21 11/16/21 11/16/21 22:31 22:45 23:00 Temperature Pulse Rate 74 74 76 Pulse Rate [ From Monitor] Respiratory Rate Blood Pressure 108/54 108/54 115/69 O2 Sat by Pulse 99 99 99 Oximetry 11/16/21 11/16/21 11/16/21 23:15 23:31 23:45 Temperature Pulse Rate 95 H 89 82 Pulse Rate [ From Monitor] Respiratory 22 Rate Blood Pressure 115/69 115/69 160/79 O2 Sat by Pulse 100 96 94 Oximetry 11/17/21 11/17/21 11/17/21 00:00 00:08 00:15 Temperature 98.3 F Pulse Rate 69 62 59 L Pulse Rate [ 75 From Monitor] Respiratory Rate Blood Pressure 114/66 114/66 114/66 O2 Sat by Pulse 96 97 98 Oximetry 11/17/21 11/17/21 11/17/21 00:30 00:45 01:00 Temperature Pulse Rate 52 L 52 L 54 L Pulse Rate [ From Monitor] Respiratory 22 Rate Blood Pressure 88/31 140/82 112/60 O2 Sat by Pulse 98 100 100 Oximetry 11/17/21 11/17/21 11/17/21 01:15 01:30 01:45 Temperature Pulse Rate 53 L 76 55 L Pulse Rate [ From Monitor] Respiratory 22 Rate Blood Pressure 115/65 125/96 109/63 O2 Sat by Pulse 100 100 100 Oximetry 11/17/21 11/17/21 11/17/21 02:00 02:15 02:30 Temperature Pulse Rate 54 L 53 L 52 L Pulse Rate [ From Monitor] Respiratory Rate Blood Pressure 105/56 107/60 110/62 O2 Sat by Pulse 100 100 100 Oximetry 11/17/21 11/17/21 11/17/21 02:45 03:00 03:15 Temperature Pulse Rate 52 L 52 L 54 L Pulse Rate [ From Monitor] Respiratory Rate Blood Pressure 113/65 112/66 118/72 O2 Sat by Pulse 100 100 100 Oximetry 11/17/21 11/17/21 11/17/21 03:30 03:45 04:00 Temperature 97.8 F Pulse Rate 55 L 58 L 69 Pulse Rate [ 81 From Monitor] Respiratory Rate Blood Pressure 116/69 121/70 156/87 O2 Sat by Pulse 100 100 100 Oximetry 11/17/21 11/17/21 11/17/21 04:15 04:27 04:30 Temperature Pulse Rate 71 77 85 Pulse Rate [ From Monitor] Respiratory Rate Blood Pressure 165/94 130/73 164/82 O2 Sat by Pulse 100 96 99 Oximetry 11/17/21 11/17/21 11/17/21 04:45 05:00 05:15 Temperature Pulse Rate 83 84 79 Pulse Rate [ From Monitor] Respiratory Rate Blood Pressure 135/72 130/73 134/68 O2 Sat by Pulse 97 96 94 Oximetry 11/17/21 11/17/21 11/17/21 05:30 05:45 06:00 Temperature Pulse Rate 75 66 83 Pulse Rate [ From Monitor] Respiratory 15 19 Rate Blood Pressure 124/71 113/36 133/84 O2 Sat by Pulse 94 95 96 Oximetry 11/17/21 11/17/21 11/17/21 06:15 06:30 06:45 Temperature Pulse Rate 62 60 54 L Pulse Rate [ From Monitor] Respiratory 22 Rate Blood Pressure 131/80 131/77 113/54 O2 Sat by Pulse 96 97 97 Oximetry 11/17/21 11/17/21 11/17/21 07:00 07:11 07:15 Temperature 98.1 F Pulse Rate 54 L 53 L Pulse Rate [ From Monitor] Respiratory 22 Rate Blood Pressure 97/50 93/50 O2 Sat by Pulse 98 97 Oximetry 11/17/21 11/17/21 11/17/21 07:30 07:45 08:00 Temperature Pulse Rate 54 L 54 L 53 L Pulse Rate [ 54 L From Monitor] Respiratory 22 22 22 Rate Blood Pressure 100/56 101/59 99/57 O2 Sat by Pulse 98 99 99 Oximetry 11/17/21 11/17/21 08:15 09:18 Temperature Pulse Rate 54 L 77 Pulse Rate [ From Monitor] Respiratory 22 Rate Blood Pressure 100/52 141/76 O2 Sat by Pulse 99 96 Oximetry - Lab 11/17/21 04:15 11/17/21 04:15 Most recent lab results ABG pH 7.412 pH Units (7.350-7.450) 11/17/21 04:25 ABG pCO2 41.3 mm Hg 11/17/21 04:25 ABG pO2 153.8 mm Hg (80.0-90.0) H 11/17/21 04:25 ABG HCO3 25.7 mmol/L (20.0-26.0) 11/17/21 04:25 ABG O2 Saturation 98.9 % (95.0-99.0) 11/17/21 04:25 Calcium 8.5 mg/dL (8.4-10.2) 11/17/21 04:15 Phosphorus 4.40 mg/dL (2.5-4.5) D 11/16/21 04:00 Magnesium 1.90 mg/dL (1.7-2.3) 11/16/21 04:00 Urine Creatinine 189.3 mg/dL (0.1-20.0) H 11/12/21 02:20 Urine Sodium 30 mmol/L 11/12/21 02:20 Medications & Allergies - Medications Allergies/Adverse Reactions: Allergies No Known Allergies Allergy (Verified 11/11/21 20:58) Active Medications: Generic Name Dose Route Start Last Admin Trade Name Freq PRN Reason Stop Dose Admin Acetaminophen 650 mg 11/11/21 22:40 Acetaminophen 325 Mg Tab PO Q4H PRN Pain MILD(1-3)/Fever >100.5/SOTO Albuterol 2.5 mg 11/11/21 22:40 Albuterol 2.5 Mg/3 Ml Nebu IH Q3HRT PRN Shortness Of Breath Aspirin 325 mg 11/17/21 10:00 Aspirin 325 Mg Tab FEEDTUBE QDAY [facility] Atorvastatin Calcium 40 mg 11/17/21 22:00 Atorvastatin 40 Mg Tab FEEDTUBE QHS BAO Dextrose 0 ml 11/11/21 23:03 Dextrose 10% *Hypoglycemia IV PRN PRN Hypoglycemia Docusate Sodium 100 mg 11/17/21 10:00 Docusate Sodium 100 Mg/10 Ml Oral Liqd FEEDTUBE BID [facility] Famotidine 20 mg 11/17/21 10:00 Famotidine 20 Mg Tab FEEDTUBE QDAY [facility] Fentanyl 50 mcg 11/11/21 20:56 11/12/21 00:12 Fentanyl 100 Mcg/2 Ml Inj IV 50 mcg Q10MIN PRN Administration ANALGESIA Heparin Sodium (Porcine) 5,000 unit 11/12/21 10:00 11/16/21 21:17 Heparin 5,000 Unit/1 Ml Vial SUB-Q 5,000 unit Q12HR [facility] Administration Hydrophilic Ointment 1 applic 11/11/21 20:56 Lip Therapy Vaseline TP Q2HR PRN Dry Lips Fentanyl Citrate 2,000 mcg in 100 mls @ 13.608 mls/hr 11/11/21 21:00 11/17/21 06:03 Fentanyl Drip Premix IV 2 mcg/kg/hr TITR BAO 27.216 mls/hr Administration Protocol 1 MCG/KG/HR NORepinephrine/NS 8 MG-250 ML 8 mg in 250 mls @ 3.75 mls/hr 11/11/21 23:00 11/17/21 08:21 Norepinephrine/Ns 8 Mg-250 Ml (Double Conc) IV 2 mcg/min TITRATE BAO 3.75 mls/hr Titration Protocol 2 MCG/MIN Propofol 1,000 mg in 100 mls @ 8.166 mls/hr 11/13/21 09:00 11/17/21 08:42 Diprivan 10 Mg/Ml IV 8 mcg/kg/min TITR BAO 13.066 mls/hr Titration Protocol 5 MCG/KG/MIN Sodium Chloride 100 mls @ 999 mls/hr 11/16/21 10:22 Nacl 0.9% IV LONG PRN Hypotension Insulin Human Lispro 0 unit 11/12/21 00:00 11/17/21 06:13 Insulin Lispro 100 Unit/Ml SUB-Q Not Given Q6HR [facility] Protocol Multi-Ingred Cream/Lotion/Oil/Oint 1 applic 11/11/21 20:56 Mineral Oil/Petrolatum, White Ophth Oint 3.5 Gm OU Q4HR PRN Dry Eye(s) Ondansetron HCl 4 mg 11/11/21 22:40 Ondansetron 4 Mg/2 Ml Inj IV Q8H PRN Nausea And Vomiting Senna 8.6 mg 11/17/21 10:00 Sennosides 8.6 Mg Tab FEEDTUBE Q12H BOA Sodium Chloride 10 ml 11/12/21 10:00 11/16/21 21:17 Sodium Chloride 0.9% 10 Ml Flush Syringe IV 10 ml BID BAO Administration Sodium Chloride 10 ml 11/11/21 22:40 Sodium Chloride 0.9% 10 Ml Flush Syringe IV PRN PRN LINE FLUSH
[2021-11-17] MEDS: DOCUSATE SODIUM 100 MG/10 ML ORAL LIQD FEEDTUBE SCH ×2 (10:16→21:10)
[2021-11-17] MEDS: SENNOSIDES 8.6 MG TAB FEEDTUBE SCH ×2 (10:16→21:10)
[2021-11-17] MEDS: FAMOTIDINE 20 MG TAB FEEDTUBE SCH (10:16)
[2021-11-17] MEDS: ASPIRIN 325 MG TAB FEEDTUBE SCH (10:16)
[2021-11-17] MEDS: HEPARIN 5,000 UNIT/1 ML VIAL SUB-Q SCH ×2 (10:17→21:10)
--- NOTE | 2021-11-17 10:36 | Progress Note ---
<RUFUS ALVAREZ - Last Filed: 11/17/21 16:10> Assessment and Plan Assessment and plan: This is a 56-year-old male with DM, HTN, obesity, currently bedbound and past intubations admitted with acute hypoxic respiratory failure and acute renal failure Hospital course to date: 11/12: Overnight patient received a dialysis catheter and was initiated on dialysis. Iglesias catheter was also placed. Antibiotics discontinued. proBNP pending. Decrease in FiO2 related to ABG. Echocardiogram pending. Patient given X1 for potassium 5.5 and nutrition consulted for tube feedings. updated brother at bedside 11/13: Propofol letter for sedation as patient seems restless on the ventilator only on fentanyl. HD scheduled for today. [facility] plans to conduct PSV possibly Sunday. 11/14: Tolerated HD overnight, 2L removed. Plan for possible HD again today. Patient is tolerating PST today on low dose fentanyl, plan for possible extubation tomorrow. 11/15: SANA overnight. Remains on the vent and on low dose sedation. Continue to tolerate HD. Plan for PST and possible extubation today. 11/16: Failed extubation yesterday and had to be emergently reintubated due to hypoxia and decreased LOC. Patient is stable on the vent this am, remains on low dose sedation, while awake and following commands. CCM recommendations noted due to patient's body habitus, he might need to be trach/Peg. CT neck was canceled due to weight limit. General Surgery consulted for Trach/PEG eval. 11/17: Remains on the vent, sedation increased overnight due to increased agitation and low dose pressors were initiated. Patient tolerated HD yesterday, plan for HD again today. Plan for possible trach/PEG vs possible transfer for ENT eval for trach/PEG. Awaiting on General surgery recommendations. Neuro: Acute metabolic encephalopathy -Intubated on Fentanyl and prop drip, RASS 0 -RASS goal 0 to -1 -Avoid delirium -Reorientation as needed -Maintain sleep-wake cycle -aspiration/seizure precautions -As needed analgesia -Patient will open eyes to verbal stimuli -Consider neurology consult Cardiac: h/o HTN, elevated troponins -Cardiology consulted, appreciate recommendations -Blood pressure monitoring per protocol -S/p vasopressor support -Echocardiogram shows ejection fraction greater than 70 Respiratory: Acute hypoxic respiratory failure, ? OHS -CCM consulted, appreciate recommendations -Intubated in the emergency department on 11/04 -11/15 Failed extubation had to be emergently reintubated due to hypoxia and decreased LOC -A.m. vent settings:AC/PRVC rate 22, tidal 550, PEEP 8, FiO2 30% -See RT notes for titration -A.m. ABG and CXR noted -VAP bundle -SPO2 monitoring -Per CCM patient might need trach/PEG -General Surgery consulted GI: Protin calorie malnutrition, Morbid obesity -Continue enteral nutrition -NTR consulted for tube feedings -BR: Colace : Acute Renal Failure -FeNa 1.04% indicating either ATN or prerenal state -Nephrology consulted, appreciate recommendations -Vas-Cath placed at HD initiated 11/12 -HD per nephrology -Strict intake and output -Renally dose medications -Avoid nephrotoxic medications -Daily weights -Renal ultrasound pending -Trend BMP -Repeat magnesium Endo: h/o DM -Avoid hypoglycemia -SSI -Accu-Cheks q. 6 -Hemoglobin A1c 5.7 GI/DVT Prophylaxis - PPI- Pepcid - Heparin SubQ The high probability of a clinically significant, sudden or life threatening deterioration of the [multi] system(s) required my full and direct attention, intervention and personal management. The aggregate critical care time was [60] minutes. This time is in addition to time spent performing reported procedures but includes the following: [x] Data Review and interpretation [x] Patient assessment and monitoring of vital signs [x] Documentation [x] Medication orders and management Disposition Plan: icu Total Time Spent with Patient (Minutes): 60 History Interval history: Patient seen and examined at the bedside. Remains intubated and sedated on propofol and fentanyl, easily arousable and following commands. Periods of anxiety/agitation overnight, sedation was increased and low dose pressors were initiated for hypotension. Hospitalist Physical - Constitutional Vitals: Temp Pulse Resp BP Pulse Ox 98.1 F 77 22 141/76 96 11/17/21 07:11 11/17/21 09:18 11/17/21 08:15 11/17/21 09:18 11/17/21 09:18 General appearance: Present: no acute distress, obese, other (intubated and sedated, easily arousable and following commands) - EENT Eyes: Present: PERRL ENT: hearing intact - Neck Neck: Present: normal ROM - Respiratory Respiratory effort: normal Respiratory: bilateral: diminished - Cardiovascular Rhythm: regular Heart Sounds: Present: S1 & S2 - Extremities Extremities: no ischemia, pulses intact, pulses symmetrical Extremity abnormal: edema - Peripheral Assessment Generalized Edema Type: Non-pitting Edema Degree: 3+ Capillary Refill: < 3 seconds Skin Temperature: Warm Peripheral Pulses: within normal limits - Abdominal General gastrointestinal: soft, non-distended, normal bowel sounds - Integumentary Integumentary: Present: warm, dry - Psychiatric Psychiatric: appropriate mood/affect, cooperative - Neurologic Neurologic: moves all extremities, other (intubated and sedated, easily arousable and following commands) - Allied Health Allied health notes reviewed: nursing, case management HEART Score - HEART Score Troponin: Troponin T 0.313 ng/mL (0.00-0.029) H* 11/12/21 22:30 Results - Labs CBC & Chem 7: 11/17/21 04:15 11/17/21 04:15 Labs: Laboratory Last Values WBC 11.8 K/mm3 (4.5-11.0) H 11/17/21 04:15 RBC 3.02 M/mm3 (3.65-5.03) L 11/17/21 04:15 Hgb 8.1 gm/dl (11.8-15.2) L 11/17/21 04:15 Hct 26.9 % (35.5-45.6) L 11/17/21 04:15 MCV 89 fl (84-94) 11/17/21 04:15 MCH 27 pg (28-32) L 11/17/21 04:15 MCHC 30 % (32-34) L 11/17/21 04:15 RDW 18.9 % (13.2-15.2) H 11/17/21 04:15 Plt Count 223 K/mm3 (140-440) 11/17/21 04:15 Lymph % (Auto) 10.0 % (13.4-35.0) L 11/11/21 19:49 [place] % (Auto) 8.8 % (0.0-7.3) H 11/11/21 19:49 Eos % (Auto) 0.9 % (0.0-4.3) 11/11/21 19:49 Baso % (Auto) 0.5 % (0.0-1.8) 11/11/21 19:49 Lymph # (Auto) 1.1 K/mm3 (1.2-5.4) L 11/11/21 19:49 [place] # (Auto) 1.0 K/mm3 (0.0-0.8) H 11/11/21 19:49 Eos # (Auto) 0.1 K/mm3 (0.0-0.4) 11/11/21 19:49 Baso # (Auto) 0.1 K/mm3 (0.0-0.1) 11/11/21 19:49 Add Manual Diff Complete 11/12/21 06:55 Total Counted 100 11/12/21 06:55 Seg Neutrophils % Technical Assoc 11/12/21 06:55 Seg Neuts % (Manual) 89.0 % (40.0-70.0) H 11/12/21 06:55 Band Neutrophils % 5.0 % 11/12/21 06:55 Lymphocytes % (Manual) 0 % (13.4-35.0) L 11/12/21 06:55 Reactive Lymphs % (Man) 0 % 11/12/21 06:55 Monocytes % (Manual) 3.0 % (0.0-7.3) 11/12/21 06:55 Eosinophils % (Manual) 0 % (0.0-4.3) 11/12/21 06:55 Basophils % (Manual) 0 % (0.0-1.8) 11/12/21 06:55 Metamyelocytes % 3.0 % 11/12/21 06:55 Myelocytes % 0 % 11/12/21 06:55 Promyelocytes % 0 % 11/12/21 06:55 Blast Cells % 0 % 11/12/21 06:55 Nucleated RBC % Not Reportable 11/12/21 06:55 Seg Neutrophils # 9.2 K/mm3 (1.8-7.7) H 11/11/21 19:49 Seg Neutrophils # Man 18.2 K/mm3 (1.8-7.7) H 11/12/21 06:55 Band Neutrophils # 1.0 K/mm3 11/12/21 06:55 Lymphocytes # (Manual) 0.0 K/mm3 (1.2-5.4) L 11/12/21 06:55 Abs React Lymphs (Man) 0.0 K/mm3 11/12/21 06:55 Monocytes # (Manual) 0.6 K/mm3 (0.0-0.8) 11/12/21 06:55 Eosinophils # (Manual) 0.0 K/mm3 (0.0-0.4) 11/12/21 06:55 Basophils # (Manual) 0.0 K/mm3 (0.0-0.1) 11/12/21 06:55 Metamyelocytes # 0.6 K/mm3 11/12/21 06:55 Myelocytes # 0.0 K/mm3 11/12/21 06:55 Promyelocytes # 0.0 K/mm3 11/12/21 06:55 Blast Cells # 0.0 K/mm3 11/12/21 06:55 WBC Morphology Not Reportable 11/12/21 06:55 Hypersegmented Neuts Not Reportable 11/12/21 06:55 Hyposegmented Neuts Not Reportable 11/12/21 06:55 Hypogranular Neuts Not Reportable 11/12/21 06:55 Smudge Cells Not Reportable 11/12/21 06:55 Toxic Granulation 1+ 11/12/21 06:55 Toxic Vacuolation Not Reportable 11/12/21 06:55 Dohle Bodies Not Reportable 11/12/21 06:55 Pelger-Huet Anomaly Not Reportable 11/12/21 06:55 Lissa Rods Not Reportable 11/12/21 06:55 Platelet Estimate Consistent w auto 11/12/21 06:55 Clumped Platelets Not Reportable 11/12/21 06:55 Plt Clumps, EDTA Not Reportable 11/12/21 06:55 Large Platelets Not Reportable 11/12/21 06:55 Giant Platelets Not Reportable 11/12/21 06:55 Platelet Satelliting Not Reportable 11/12/21 06:55 Plt Morphology Comment Not Reportable 11/12/21 06:55 RBC Morphology Normal 11/12/21 06:55 Dimorphic RBCs Not Reportable 11/12/21 06:55 Polychromasia Not Reportable 11/12/21 06:55 Hypochromasia Not Reportable 11/12/21 06:55 Poikilocytosis Not Reportable 11/12/21 06:55 Anisocytosis Not Reportable 11/12/21 06:55 Microcytosis Not Reportable 11/12/21 06:55 Macrocytosis Not Reportable 11/12/21 06:55 Spherocytes Not Reportable 11/12/21 06:55 Pappenheimer Bodies Not Reportable 11/12/21 06:55 Sickle Cells Not Reportable 11/12/21 06:55 Target Cells Not Reportable 11/12/21 06:55 Tear Drop Cells Not Reportable 11/12/21 06:55 Ovalocytes Not Reportable 11/12/21 06:55 Helmet Cells Not Reportable 11/12/21 06:55 [place] Bodies Not Reportable 11/12/21 06:55 Blairs Rings Not Reportable 11/12/21 06:55 [place] Cells Not Reportable 11/12/21 06:55 Bite Cells Not Reportable 11/12/21 06:55 Crenated Cell Not Reportable 11/12/21 06:55 Elliptocytes Not Reportable 11/12/21 06:55 Acanthocytes (Spur) Not Reportable 11/12/21 06:55 Rouleaux Not Reportable 11/12/21 06:55 Hemoglobin C Crystals Not Reportable 11/12/21 06:55 Schistocytes Not Reportable 11/12/21 06:55 Malaria parasites Not Reportable 11/12/21 06:55 Nam Bodies Not Reportable 11/12/21 06:55 Hem Pathologist Commnt No 11/12/21 06:55 ABG pH 7.412 pH Units (7.350-7.450) 11/17/21 04:25 ABG pCO2 41.3 mm Hg 11/17/21 04:25 ABG pO2 153.8 mm Hg (80.0-90.0) H 11/17/21 04:25 ABG HCO3 25.7 mmol/L (20.0-26.0) 11/17/21 04:25 ABG O2 Saturation 98.9 % (95.0-99.0) 11/17/21 04:25 ABG O2 Content 11.7 (0.0-44) 11/17/21 04:25 ABG Base Excess 1.0 mmol/L (-2.0-3.0) 11/17/21 04:25 ABG Hemoglobin 8.3 gm/dl (14.0-18.0) L 11/17/21 04:25 ABG Carboxyhemoglobin 1.1 % (0.0-5.0) 11/17/21 04:25 ABG Methemoglobin 0.4 % (0.0-1.5) 11/17/21 04:25 Oxyhemoglobin 97.4 % (95.0-99.0) 11/17/21 04:25 FiO2 40 % 11/17/21 04:25 Sodium 139 mmol/L (137-145) 11/17/21 04:15 Potassium 3.6 mmol/L (3.6-5.0) 11/17/21 04:15 Chloride 101.1 mmol/L (98-107) 11/17/21 04:15 Carbon Dioxide 25 mmol/L (22-30) 11/17/21 04:15 Anion Gap 17 mmol/L 11/17/21 04:15 BUN 33 mg/dL (9-20) H 11/17/21 04:15 Creatinine 6.2 mg/dL (0.8-1.3) H 11/17/21 04:15 Estimated GFR 11 ml/min 11/17/21 04:15 BUN/Creatinine Ratio 5 % 11/17/21 04:15 Glucose 118 mg/dL (75-100) H 11/17/21 04:15 POC Glucose 103 mg/dL (70-105) 11/17/21 05:04 Hemoglobin A1c 5.7 % (4-6) 11/12/21 06:55 Lactic Acid 0.90 mmol/L (0.7-2.0) 11/11/21 19:49 Calcium 8.5 mg/dL (8.4-10.2) 11/17/21 04:15 Phosphorus 4.40 mg/dL (2.5-4.5) D 11/16/21 04:00 Magnesium 1.90 mg/dL (1.7-2.3) 11/16/21 04:00 Iron 24 ug/dL (49-181) L 11/11/21 23:29 TIBC 157 mcg/dL (250-450) L 11/11/21 23:29 Total Bilirubin 0.40 mg/dL (0.1-1.2) 11/11/21 19:49 AST 10 units/L (5-40) 11/11/21 19:49 ALT 7 units/L (7-56) 11/11/21 19:49 Alkaline Phosphatase 111 units/L (35-129) 11/11/21 19:49 Total Creatine Kinase 268 units/L (55-170) H 11/11/21 23:29 Troponin T 0.313 ng/mL (0.00-0.029) H* 11/12/21 22:30 NT-Pro-B Natriuret Pep 3674 pg/mL (0-900) H 11/12/21 Unknown Total Protein 9.1 g/dL (6.3-8.2) H 11/11/21 19:49 Albumin 3.0 g/dL (3.9-5) L 11/11/21 19:49 Albumin/Globulin Ratio 0.5 % 11/11/21 19:49 Triglycerides 79 mg/dL (2-149) 11/11/21 19:49 Cholesterol 146 mg/dL (50-199) 11/11/21 19:49 LDL Cholesterol Direct 85 mg/dL (50-130) 11/11/21 19:49 HDL Cholesterol 43 mg/dL (40-59) 11/11/21 19:49 Cholesterol/HDL Ratio 3.39 % 11/11/21 19:49 PTH Intact 1174 pg/mL (15-65) H 11/11/21 23:29 Urine Color Yellow (Yellow) 11/12/21 02:20 Urine Turbidity Cloudy (Clear) 11/12/21 02:20 Urine pH 5.0 (5.0-7.0) 11/12/21 02:20 Ur Specific [place] 1.013 (1.003-1.030) 11/12/21 02:20 Urine Protein >500 mg/dL (Negative) 11/12/21 02:20 Urine Glucose (UA) Neg mg/dL (Negative) 11/12/21 02:20 Urine Ketones Neg mg/dL (Negative) 11/12/21 02:20 Urine Blood Sm (Negative) 11/12/21 02:20 Urine Nitrite Neg (Negative) 11/12/21 02:20 Urine Bilirubin Neg (Negative) 11/12/21 02:20 Urine Urobilinogen < 2.0 mg/dL (<2.0) 11/12/21 02:20 Ur Leukocyte Esterase Tr (Negative) 11/12/21 02:20 Urine WBC (Auto) 12.0 /HPF (0.0-6.0) H 11/12/21 02:20 Urine RBC (Auto) 4.0 /HPF (0.0-6.0) 11/12/21 02:20 U Epithel Cells (Auto) 9.0 /HPF (0-13.0) 11/12/21 02:20 Urine Bacteria (Auto) 2+ /HPF (Negative) 11/12/21 02:20 Urine Mucus Few /HPF 11/12/21 02:20 Urine Yeast (Budding) 3+ /HPF 11/12/21 02:20 Urine Eosinophils None seen (None Seen) 11/12/21 02:20 Urine Creatinine 189.3 mg/dL (0.1-20.0) H 11/12/21 02:20 Urine Sodium 30 mmol/L 11/12/21 02:20 Hepatitis A IgM Ab Non-reactive (NonReactive) 11/12/21 04:45 Hep Bs Antigen Non-reactive (Negative) 11/12/21 04:45 Hep B Core IgM Ab Non-reactive (NonReactive) 11/12/21 04:45 Hepatitis C Antibody Non-reactive (NonReactive) 11/12/21 04:45 Iglesias/IV: Voiding Method Incontinent Active Medications - Current Medications Current Medications: Generic Name Dose Route Start Last Admin Trade Name Freq PRN Reason Stop Dose Admin Acetaminophen 650 mg 11/11/21 22:40 Acetaminophen 325 Mg Tab PO Q4H PRN Pain MILD(1-3)/Fever >100.5/SOTO Albuterol 2.5 mg 11/11/21 22:40 Albuterol 2.5 Mg/3 Ml Nebu IH Q3HRT PRN Shortness Of Breath Aspirin 325 mg 11/17/21 10:00 11/17/21 10:16 Aspirin 325 Mg Tab FEEDTUBE 325 mg QDAY BAO Administration Atorvastatin Calcium 40 mg 11/17/21 22:00 Atorvastatin 40 Mg Tab FEEDTUBE QHS BAO Dextrose 0 ml 11/11/21 23:03 Dextrose 10% *Hypoglycemia IV PRN PRN Hypoglycemia Docusate Sodium 100 mg 11/17/21 10:00 11/17/21 10:16 Docusate Sodium 100 Mg/10 Ml Oral Liqd FEEDTUBE 100 mg BID BAO Administration Famotidine 20 mg 11/17/21 10:00 11/17/21 10:16 Famotidine 20 Mg Tab FEEDTUBE 20 mg QDAY [facility] Administration Fentanyl 50 mcg 11/11/21 20:56 11/12/21 00:12 Fentanyl 100 Mcg/2 Ml Inj IV 50 mcg Q10MIN PRN Administration ANALGESIA Heparin Sodium (Porcine) 5,000 unit 11/12/21 10:00 11/17/21 10:17 Heparin 5,000 Unit/1 Ml Vial SUB-Q 5,000 unit Q12HR BAO Administration Hydrophilic Ointment 1 applic 11/11/21 20:56 Lip Therapy Vaseline TP Q2HR PRN Dry Lips Fentanyl Citrate 2,000 mcg in 100 mls @ 13.608 mls/hr 11/11/21 21:00 11/17/21 10:16 Fentanyl Drip Premix IV 2 mcg/kg/hr TITR BAO 27.216 mls/hr Administration Protocol 1 MCG/KG/HR NORepinephrine/NS 8 MG-250 ML 8 mg in 250 mls @ 3.75 mls/hr 11/11/21 23:00 11/17/21 08:21 Norepinephrine/Ns 8 Mg-250 Ml (Double Conc) IV 2 mcg/min TITRATE BAO 3.75 mls/hr Titration Protocol 2 MCG/MIN Propofol 1,000 mg in 100 mls @ 8.166 mls/hr 11/13/21 09:00 11/17/21 10:21 Diprivan 10 Mg/Ml IV 10 mcg/kg/min TITR BAO 16.332 mls/hr Titration Protocol 5 MCG/KG/MIN Sodium Chloride 100 mls @ 999 mls/hr 11/16/21 10:22 Nacl 0.9% IV LONG PRN Hypotension Insulin Human Lispro 0 unit 11/12/21 00:00 11/17/21 06:13 Insulin Lispro 100 Unit/Ml SUB-Q Not Given Q6HR [facility] Protocol Multi-Ingred Cream/Lotion/Oil/Oint 1 applic 11/11/21 20:56 Mineral Oil/Petrolatum, White Ophth Oint 3.5 Gm OU Q4HR PRN Dry Eye(s) Ondansetron HCl 4 mg 11/11/21 22:40 Ondansetron 4 Mg/2 Ml Inj IV Q8H PRN Nausea And Vomiting Senna 8.6 mg 11/17/21 10:00 11/17/21 10:16 Sennosides 8.6 Mg Tab FEEDTUBE 8.6 mg Q12H BAO Administration Sodium Chloride 10 ml 11/12/21 10:00 11/17/21 10:17 Sodium Chloride 0.9% 10 Ml Flush Syringe IV 10 ml BID BAO Administration Sodium Chloride 10 ml 11/11/21 22:40 Sodium Chloride 0.9% 10 Ml Flush Syringe IV PRN PRN LINE FLUSH Nutrition/Malnutrition Assess - Dietary Evaluation Nutrition/Malnutrition Findings: Nutrition Notes Start: 11/12/21 16:08 Freq: Status: Active Protocol: Document 11/14/21 15:39 [facility] (Rec: 11/14/21 15:45 [facility] [email or web address]) Nutrition Notes Initial or Follow up Reassessment Current Diagnosis Diabetes,Hypertension, Respiratory Failure Other Pertinent Diagnosis Acute renal failure (on HD), pneu Current Diet TF - Nepro at 50ml/hr Labs/Tests K 3 BUN 41 Cr 7 Mg 1.6 Pertinent Medications Mg sulfate x 1 dose, Levophed gtt, 20mEq KCl x 1 dose Height 5 ft 9 in Weight 272.2 kg [place] Body Weight (kg) 72.72 BMI 88.6 Weight Status Morbidly Obese Subjective/Other Information Observed Nepro infusing at goal rate. Per RN, pt tolerating TF. Pt remains on vent support. Percent of energy/protein needs met: 99% energy 53% pro Burn Absent Trauma Absent #1 Nutrition Diagnosis Inadequate oral intake Diagnosis Progress(for reassessment Continues documentation) Is patient on ventilator? Yes Is Patient Ambulatory and/or Out of Bed No REE-([place]-confined to bed) 4258.860 Kcal/Kg value to use for calculation 8 Approximate Energy Requirements Using 2178 kcal/Kg Additional Notes Pro needs up to 2.5g/kg IBW: 182g/day Fluid needs 1-1.5L/day Nutrition Intervention Nutrition Support: Continue Nepro at 50ml/hr with 200ml water flush q4h. Kcal 2,160 Protein (gm) 97 Carbohydrates (gm) 193 Fat (gm) 115 Fluid (mL) 872 Fiber (gm) 15 Goal #1 TF tolerance Goal #2 TF to meet at least 75% energy and pro needs Follow-Up By: 11/21/21 Additional Comments F/U: stable TF, vent status, wt <AMADO YODER - Last Filed: 11/18/21 07:26> Assessment and Plan Assessment and plan: I saw and evaluated the patient. I agree with the findings and the plan of care as documented in the Nurse Practitioner's~note, with the following corrections and additions. Hospitalist Physical - Constitutional Vitals: Temp Pulse Resp BP Pulse Ox 98 F 62 20 121/81 99 11/18/21 03:18 11/18/21 06:00 11/18/21 06:00 11/18/21 06:00 11/18/21 06:00 HEART Score - HEART Score Troponin: Troponin T 0.313 ng/mL (0.00-0.029) H* 11/12/21 22:30 Results - Labs CBC & Chem 7: 11/18/21 04:00 11/18/21 04:00 Labs: Laboratory Last Values WBC 10.9 K/mm3 (4.5-11.0) 11/18/21 04:00 RBC 2.88 M/mm3 (3.65-5.03) L 11/18/21 04:00 Hgb 7.8 gm/dl (11.8-15.2) L 11/18/21 04:00 Hct 25.3 % (35.5-45.6) L 11/18/21 04:00 MCV 88 fl (84-94) 11/18/21 04:00 MCH 27 pg (28-32) L 11/18/21 04:00 MCHC 31 % (32-34) L 11/18/21 04:00 RDW 18.7 % (13.2-15.2) H 11/18/21 04:00 Plt Count 229 K/mm3 (140-440) 11/18/21 04:00 Lymph % (Auto) 10.0 % (13.4-35.0) L 11/11/21 19:49 [place] % (Auto) 8.8 % (0.0-7.3) H 11/11/21 19:49 Eos % (Auto) 0.9 % (0.0-4.3) 11/11/21 19:49 Baso % (Auto) 0.5 % (0.0-1.8) 11/11/21 19:49 Lymph # (Auto) 1.1 K/mm3 (1.2-5.4) L 11/11/21 19:49 [place] # (Auto) 1.0 K/mm3 (0.0-0.8) H 11/11/21 19:49 Eos # (Auto) 0.1 K/mm3 (0.0-0.4) 11/11/21 19:49 Baso # (Auto) 0.1 K/mm3 (0.0-0.1) 11/11/21 19:49 Add Manual Diff Complete 11/12/21 06:55 Total Counted 100 11/12/21 06:55 Seg Neutrophils % Technical Assoc 11/12/21 06:55 Seg Neuts % (Manual) 89.0 % (40.0-70.0) H 11/12/21 06:55 Band Neutrophils % 5.0 % 11/12/21 06:55 Lymphocytes % (Manual) 0 % (13.4-35.0) L 11/12/21 06:55 Reactive Lymphs % (Man) 0 % 11/12/21 06:55 Monocytes % (Manual) 3.0 % (0.0-7.3) 11/12/21 06:55 Eosinophils % (Manual) 0 % (0.0-4.3) 11/12/21 06:55 Basophils % (Manual) 0 % (0.0-1.8) 11/12/21 06:55 Metamyelocytes % 3.0 % 11/12/21 06:55 Myelocytes % 0 % 11/12/21 06:55 Promyelocytes % 0 % 11/12/21 06:55 Blast Cells % 0 % 11/12/21 06:55 Nucleated RBC % Not Reportable 11/12/21 06:55 Seg Neutrophils # 9.2 K/mm3 (1.8-7.7) H 11/11/21 19:49 Seg Neutrophils # Man 18.2 K/mm3 (1.8-7.7) H 11/12/21 06:55 Band Neutrophils # 1.0 K/mm3 11/12/21 06:55 Lymphocytes # (Manual) 0.0 K/mm3 (1.2-5.4) L 11/12/21 06:55 Abs React Lymphs (Man) 0.0 K/mm3 11/12/21 06:55 Monocytes # (Manual) 0.6 K/mm3 (0.0-0.8) 11/12/21 06:55 Eosinophils # (Manual) 0.0 K/mm3 (0.0-0.4) 11/12/21 06:55 Basophils # (Manual) 0.0 K/mm3 (0.0-0.1) 11/12/21 06:55 Metamyelocytes # 0.6 K/mm3 11/12/21 06:55 Myelocytes # 0.0 K/mm3 11/12/21 06:55 Promyelocytes # 0.0 K/mm3 11/12/21 06:55 Blast Cells # 0.0 K/mm3 11/12/21 06:55 WBC Morphology Not Reportable 11/12/21 06:55 Hypersegmented Neuts Not Reportable 11/12/21 06:55 Hyposegmented Neuts Not Reportable 11/12/21 06:55 Hypogranular Neuts Not Reportable 11/12/21 06:55 Smudge Cells Not Reportable 11/12/21 06:55 Toxic Granulation 1+ 11/12/21 06:55 Toxic Vacuolation Not Reportable 11/12/21 06:55 Dohle Bodies Not Reportable 11/12/21 06:55 Pelger-Huet Anomaly Not Reportable 11/12/21 06:55 Lissa Rods Not Reportable 11/12/21 06:55 Platelet Estimate Consistent w auto 11/12/21 06:55 Clumped Platelets Not Reportable 11/12/21 06:55 Plt Clumps, EDTA Not Reportable 11/12/21 06:55 Large Platelets Not Reportable 11/12/21 06:55 Giant Platelets Not Reportable 11/12/21 06:55 Platelet Satelliting Not Reportable 11/12/21 06:55 Plt Morphology Comment Not Reportable 11/12/21 06:55 RBC Morphology Normal 11/12/21 06:55 Dimorphic RBCs Not Reportable 11/12/21 06:55 Polychromasia Not Reportable 11/12/21 06:55 Hypochromasia Not Reportable 11/12/21 06:55 Poikilocytosis Not Reportable 11/12/21 06:55 Anisocytosis Not Reportable 11/12/21 06:55 Microcytosis Not Reportable 11/12/21 06:55 Macrocytosis Not Reportable 11/12/21 06:55 Spherocytes Not Reportable 11/12/21 06:55 Pappenheimer Bodies Not Reportable 11/12/21 06:55 Sickle Cells Not Reportable 11/12/21 06:55 Target Cells Not Reportable 11/12/21 06:55 Tear Drop Cells Not Reportable 11/12/21 06:55 Ovalocytes Not Reportable 11/12/21 06:55 Helmet Cells Not Reportable 11/12/21 06:55 [place] Bodies Not Reportable 11/12/21 06:55 Blairs Rings Not Reportable 11/12/21 06:55 [place] Cells Not Reportable 11/12/21 06:55 Bite Cells Not Reportable 11/12/21 06:55 Crenated Cell Not Reportable 11/12/21 06:55 Elliptocytes Not Reportable 11/12/21 06:55 Acanthocytes (Spur) Not Reportable 11/12/21 06:55 Rouleaux Not Reportable 11/12/21 06:55 Hemoglobin C Crystals Not Reportable 11/12/21 06:55 Schistocytes Not Reportable 11/12/21 06:55 Malaria parasites Not Reportable 11/12/21 06:55 Nam Bodies Not Reportable 11/12/21 06:55 Hem Pathologist Commnt No 11/12/21 06:55 ABG pH 7.467 pH Units (7.350-7.450) H 11/18/21 04:35 ABG pCO2 37.1 mm Hg 11/18/21 04:35 ABG pO2 110.0 mm Hg (80.0-90.0) H 11/18/21 04:35 ABG HCO3 26.2 mmol/L (20.0-26.0) H 11/18/21 04:35 ABG O2 Saturation 98.1 % (95.0-99.0) 11/18/21 04:35 ABG O2 Content 11.3 (0.0-44) 11/18/21 04:35 ABG Base Excess 2.4 mmol/L (-2.0-3.0) 11/18/21 04:35 ABG Hemoglobin 8.1 gm/dl (14.0-18.0) L 11/18/21 04:35 ABG Carboxyhemoglobin 1.2 % (0.0-5.0) 11/18/21 04:35 ABG Methemoglobin 0.4 % (0.0-1.5) 11/18/21 04:35 Oxyhemoglobin 96.5 % (95.0-99.0) 11/18/21 04:35 FiO2 30 % 11/18/21 04:35 Sodium 138 mmol/L (137-145) 11/18/21 04:00 Potassium 3.6 mmol/L (3.6-5.0) 11/18/21 04:00 Chloride 99.6 mmol/L (98-107) 11/18/21 04:00 Carbon Dioxide 26 mmol/L (22-30) 11/18/21 04:00 Anion Gap 16 mmol/L 11/18/21 04:00 BUN 28 mg/dL (9-20) H 11/18/21 04:00 Creatinine 5.5 mg/dL (0.8-1.3) H 11/18/21 04:00 Estimated GFR 13 ml/min 11/18/21 04:00 BUN/Creatinine Ratio 5 % 11/18/21 04:00 Glucose 99 mg/dL (75-100) 11/18/21 04:00 POC Glucose 82 mg/dL (70-105) 11/18/21 05:09 Hemoglobin A1c 5.7 % (4-6) 11/12/21 06:55 Lactic Acid 0.90 mmol/L (0.7-2.0) 11/11/21 19:49 Calcium 8.4 mg/dL (8.4-10.2) 11/18/21 04:00 Phosphorus 3.20 mg/dL (2.5-4.5) 11/18/21 04:00 Magnesium 1.80 mg/dL (1.7-2.3) 11/18/21 04:00 Iron 24 ug/dL (49-181) L 11/11/21 23:29 TIBC 157 mcg/dL (250-450) L 11/11/21 23:29 Total Bilirubin 0.40 mg/dL (0.1-1.2) 11/11/21 19:49 AST 10 units/L (5-40) 11/11/21 19:49 ALT 7 units/L (7-56) 11/11/21 19:49 Alkaline Phosphatase 111 units/L (35-129) 11/11/21 19:49 Total Creatine Kinase 268 units/L (55-170) H 11/11/21 23:29 Troponin T 0.313 ng/mL (0.00-0.029) H* 11/12/21 22:30 NT-Pro-B Natriuret Pep 3674 pg/mL (0-900) H 11/12/21 Unknown Total Protein 9.1 g/dL (6.3-8.2) H 11/11/21 19:49 Albumin 3.0 g/dL (3.9-5) L 11/11/21 19:49 Albumin/Globulin Ratio 0.5 % 11/11/21 19:49 Triglycerides 79 mg/dL (2-149) 11/11/21 19:49 Cholesterol 146 mg/dL (50-199) 11/11/21 19:49 LDL Cholesterol Direct 85 mg/dL (50-130) 11/11/21 19:49 HDL Cholesterol 43 mg/dL (40-59) 11/11/21 19:49 Cholesterol/HDL Ratio 3.39 % 11/11/21 19:49 PTH Intact 1174 pg/mL (15-65) H 11/11/21 23:29 Urine Color Yellow (Yellow) 11/12/21 02:20 Urine Turbidity Cloudy (Clear) 11/12/21 02:20 Urine pH 5.0 (5.0-7.0) 11/12/21 02:20 Ur Specific [place] 1.013 (1.003-1.030) 11/12/21 02:20 Urine Protein >500 mg/dL (Negative) 11/12/21 02:20 Urine Glucose (UA) Neg mg/dL (Negative) 11/12/21 02:20 Urine Ketones Neg mg/dL (Negative) 11/12/21 02:20 Urine Blood Sm (Negative) 11/12/21 02:20 Urine Nitrite Neg (Negative) 11/12/21 02:20 Urine Bilirubin Neg (Negative) 11/12/21 02:20 Urine Urobilinogen < 2.0 mg/dL (<2.0) 11/12/21 02:20 Ur Leukocyte Esterase Tr (Negative) 11/12/21 02:20 Urine WBC (Auto) 12.0 /HPF (0.0-6.0) H 11/12/21 02:20 Urine RBC (Auto) 4.0 /HPF (0.0-6.0) 11/12/21 02:20 U Epithel Cells (Auto) 9.0 /HPF (0-13.0) 11/12/21 02:20 Urine Bacteria (Auto) 2+ /HPF (Negative) 11/12/21 02:20 Urine Mucus Few /HPF 11/12/21 02:20 Urine Yeast (Budding) 3+ /HPF 11/12/21 02:20 Urine Eosinophils None seen (None Seen) 11/12/21 02:20 Urine Creatinine 189.3 mg/dL (0.1-20.0) H 11/12/21 02:20 Urine Sodium 30 mmol/L 11/12/21 02:20 Hepatitis A IgM Ab Non-reactive (NonReactive) 11/12/21 04:45 Hep Bs Antigen Non-reactive (Negative) 11/12/21 04:45 Hep B Core IgM Ab Non-reactive (NonReactive) 11/12/21 04:45 Hepatitis C Antibody Non-reactive (NonReactive) 11/12/21 04:45 Iglesias/IV: Voiding Method Incontinent Active Medications - Current Medications Current Medications: Generic Name Dose Route Start Last Admin Trade Name Freq PRN Reason Stop Dose Admin Acetaminophen 650 mg 11/11/21 22:40 Acetaminophen 325 Mg Tab PO Q4H PRN Pain MILD(1-3)/Fever >100.5/SOTO Albuterol 2.5 mg 11/11/21 22:40 Albuterol 2.5 Mg/3 Ml Nebu IH Q3HRT PRN Shortness Of Breath Aspirin 325 mg 11/17/21 10:00 11/17/21 10:16 Aspirin 325 Mg Tab FEEDTUBE 325 mg QDAY BAO Administration Atorvastatin Calcium 40 mg 11/17/21 22:00 11/17/21 21:10 Atorvastatin 40 Mg Tab FEEDTUBE 40 mg QHS BAO Administration Dextrose 0 ml 11/11/21 23:03 Dextrose 10% *Hypoglycemia IV PRN PRN Hypoglycemia Docusate Sodium 100 mg 11/17/21 10:00 11/17/21 21:10 Docusate Sodium 100 Mg/10 Ml Oral Liqd FEEDTUBE 100 mg BID BAO Administration Famotidine 20 mg 11/17/21 10:00 11/17/21 10:16 Famotidine 20 Mg Tab FEEDTUBE 20 mg QDAY BAO Administration Fentanyl 50 mcg 11/11/21 20:56 11/12/21 00:12 Fentanyl 100 Mcg/2 Ml Inj IV 50 mcg Q10MIN PRN Administration ANALGESIA Heparin Sodium (Porcine) 5,000 unit 11/12/21 10:00 11/17/21 21:10 Heparin 5,000 Unit/1 Ml Vial SUB-Q 5,000 unit Q12HR [facility] Administration Hydrophilic Ointment 1 applic 11/11/21 20:56 Lip Therapy Vaseline TP Q2HR PRN Dry Lips Fentanyl Citrate 2,000 mcg in 100 mls @ 13.608 mls/hr 11/11/21 21:00 11/18/21 06:29 Fentanyl Drip Premix IV 2 mcg/kg/hr TITR BAO 27.216 mls/hr Administration Protocol 1 MCG/KG/HR NORepinephrine/NS 8 MG-250 ML 8 mg in 250 mls @ 3.75 mls/hr 11/11/21 23:00 11/17/21 21:11 Norepinephrine/Ns 8 Mg-250 Ml (Double Conc) IV 1.07 mcg/min TITRATE BAO 2 mls/hr Titration Protocol 2 MCG/MIN Propofol 1,000 mg in 100 mls @ 8.166 mls/hr 11/13/21 09:00 11/18/21 04:30 Diprivan 10 Mg/Ml IV 15 mcg/kg/min TITR BAO 24.498 mls/hr Administration Protocol 5 MCG/KG/MIN Sodium Chloride 100 mls @ 999 mls/hr 11/16/21 10:22 Nacl 0.9% IV LONG PRN Hypotension Insulin Human Lispro 0 unit 11/12/21 00:00 11/18/21 06:05 Insulin Lispro 100 Unit/Ml SUB-Q Not Given Q6HR [facility] Protocol Multi-Ingred Cream/Lotion/Oil/Oint 1 applic 11/11/21 20:56 Mineral Oil/Petrolatum, White Ophth Oint 3.5 Gm OU Q4HR PRN Dry Eye(s) Ondansetron HCl 4 mg 11/11/21 22:40 Ondansetron 4 Mg/2 Ml Inj IV Q8H PRN Nausea And Vomiting Senna 8.6 mg 11/17/21 10:00 11/17/21 21:10 Sennosides 8.6 Mg Tab FEEDTUBE 8.6 mg Q12H BAO Administration Sodium Chloride 10 ml 11/12/21 10:00 11/17/21 21:10 Sodium Chloride 0.9% 10 Ml Flush Syringe IV 10 ml BID BAO Administration Sodium Chloride 10 ml 11/11/21 22:40 Sodium Chloride 0.9% 10 Ml Flush Syringe IV PRN PRN LINE FLUSH Nutrition/Malnutrition Assess - Dietary Evaluation Nutrition/Malnutrition Findings: Nutrition Notes Start: 11/12/21 16:08 Freq: Status: Active Protocol: Document 11/14/21 15:39 TODD (Rec: 11/14/21 15:45 TODD [id number]) Nutrition Notes Initial or Follow up Reassessment Current Diagnosis Diabetes,Hypertension, Respiratory Failure Other Pertinent Diagnosis Acute renal failure (on HD), pneu Current Diet TF - Nepro at 50ml/hr Labs/Tests K 3 BUN 41 Cr 7 Mg 1.6 Pertinent Medications Mg sulfate x 1 dose, Levophed gtt, 20mEq KCl x 1 dose Height 5 ft 9 in Weight 272.2 kg [place] Body Weight (kg) 72.72 BMI 88.6 Weight Status Morbidly Obese Subjective/Other Information Observed Nepro infusing at goal rate. Per RN, pt tolerating TF. Pt remains on vent support. Percent of energy/protein needs met: 99% energy 53% pro Burn Absent Trauma Absent #1 Nutrition Diagnosis Inadequate oral intake Diagnosis Progress(for reassessment Continues documentation) Is patient on ventilator? Yes Is Patient Ambulatory and/or Out of Bed No REE-([facility]-confined to bed) 4258.860 Kcal/Kg value to use for calculation 8 Approximate Energy Requirements Using 2178 kcal/Kg Additional Notes Pro needs up to 2.5g/kg IBW: 182g/day Fluid needs 1-1.5L/day Nutrition Intervention Nutrition Support: Continue Nepro at 50ml/hr with 200ml water flush q4h. Kcal 2,160 Protein (gm) 97 Carbohydrates (gm) 193 Fat (gm) 115 Fluid (mL) 872 Fiber (gm) 15 Goal #1 TF tolerance Goal #2 TF to meet at least 75% energy and pro needs Follow-Up By: 11/21/21 Additional Comments F/U: stable TF, vent status, wt
--- NOTE | 2021-11-17 15:32 | Progress Note ---
Assessment and Plan Patient is a 56-year-old morbidly obese bedbound male who was admitted with acute respiratory failure and acute renal failure on 11/12/21. Cardiology initially consulted for elevated troponin on admission. Assessment: Acute Encephalopathy Acute Respiratory Failure Acute Renal Failure (s/p Vascath placement & emergent HD 11/11)- nephrology following Hyperkalemia (resolved) Anemia S/p Shock H/o HTN DM Morbid Obesity/Bedbound ?OHS/AYAN Chronic Lymphedema NSTEMI- likely type II GA in the setting of acute respiratory failure/acute renal failure/shock. Echocardiogram- 11/11/21: Exam will be followed up by limited Optison contrast study on 11/14/2021. Left ventricle systolic function is normal. LVEF is > 70%. Mild concentric left ventricular hypertrophy. There is no pericardial effusion. Limited echo 11/14/2021: LV: The left ventricular systolic function is normal. The left ventricular ejection fraction is within the normal range. LVEF is 55 to 60%. No left ventricle thrombus noted on the study Plan: Ischemic evaluation remains unattainable at this time due to patient weight limitations. Electrolyte replacement per Nephrology Continue present management per Primary teams. Patient seen in conjunction with Dr. Ma, who agrees with the assessment and plan of care. 30 minutes of critical care time spent in care coordination of patient - Patient Problems (1) Acute renal failure (ARF) Current Visit: No Status: Acute Qualifiers: Qualified Code(s): N17.9 - Acute kidney failure, unspecified (2) Acute respiratory failure Current Visit: Yes Status: Acute Qualifiers: Respiratory failure complication: hypoxia Qualified Code(s): J96.01 - Acute respiratory failure with hypoxia (3) Hyperkalemia Current Visit: Yes Status: Acute (4) Hypotension Current Visit: Yes Status: Acute Qualifiers: Hypotension type: unspecified hypotension type Qualified Code(s): I95.9 - Hypotension, unspecified (5) Obesity Current Visit: Yes Status: Acute (6) Type 2 GA (myocardial infarction) Current Visit: Yes Status: Acute Subjective Date of service: 11/17/21 Principal diagnosis: Acute respiratory failure, Interval history: Patient remains intubated and awake Patient sinus 60s to 70s on monitor episodes of bradycardia overnight Objective Vital Signs Temp Pulse Pulse Resp BP Pulse Ox Pulse Ox 11/17/21 15:15 64 22 142/81 97 11/17/21 15:00 68 22 129/80 97 11/17/21 14:45 76 22 137/81 97 11/17/21 14:30 77 23 127/82 98 11/17/21 14:15 66 22 143/84 98 11/17/21 14:00 54 L 22 96/51 99 11/17/21 13:45 55 L 22 97/47 97 11/17/21 13:30 98.0 F 57 L 22 126/70 98 98 11/17/21 13:22 53 L 114/65 11/17/21 13:15 54 L 22 109/65 99 11/17/21 13:00 54 L 22 113/64 98 11/17/21 12:48 53 L 124/72 99 11/17/21 12:45 55 L 22 118/67 99 11/17/21 12:30 53 L 22 120/69 99 11/17/21 12:15 53 L 22 124/72 98 11/17/21 12:00 52 L 58 L 22 129/70 99 11/17/21 11:45 98.4 F 50 L 22 127/73 99 11/17/21 11:30 50 L 22 129/73 99 11/17/21 11:15 51 L 22 118/66 98 11/17/21 11:00 53 L 22 97/56 100 11/17/21 10:45 62 19 102/53 97 11/17/21 10:30 65 22 116/65 97 11/17/21 10:21 70 137/81 11/17/21 10:16 98.0 F 70 22 130/74 97 11/17/21 10:15 69 21 130/74 95 11/17/21 10:00 65 22 119/64 96 11/17/21 09:45 79 14 133/82 96 11/17/21 09:31 76 22 142/122 98 11/17/21 09:18 77 141/76 96 11/17/21 09:15 78 21 141/76 97 11/17/21 09:00 72 22 125/71 97 11/17/21 08:45 68 22 126/72 97 11/17/21 08:31 65 22 140/84 97 11/17/21 08:15 54 L 22 100/52 99 11/17/21 08:00 53 L 54 L 22 99/57 99 11/17/21 07:45 54 L 22 101/59 99 11/17/21 07:30 54 L 22 100/56 98 11/17/21 07:15 53 L 22 93/50 97 11/17/21 07:11 98.1 F 11/17/21 07:00 54 L 22 97/50 98 11/17/21 06:45 54 L 22 113/54 97 11/17/21 06:30 60 22 131/77 97 11/17/21 06:15 62 22 131/80 96 11/17/21 06:00 83 19 133/84 96 11/17/21 05:45 66 22 113/36 95 11/17/21 05:30 75 15 124/71 94 11/17/21 05:15 79 21 134/68 94 11/17/21 05:00 84 15 130/73 96 11/17/21 04:45 83 22 135/72 97 11/17/21 04:30 85 22 164/82 99 11/17/21 04:27 77 130/73 96 11/17/21 04:15 71 22 165/94 100 11/17/21 04:00 97.8 F 69 81 22 156/87 100 11/17/21 03:45 58 L 22 121/70 100 11/17/21 03:30 55 L 22 116/69 100 11/17/21 03:15 54 L 22 118/72 100 11/17/21 03:00 52 L 22 112/66 100 11/17/21 02:45 52 L 22 113/65 100 11/17/21 02:30 52 L 22 110/62 100 11/17/21 02:15 53 L 22 107/60 100 11/17/21 02:00 54 L 22 105/56 100 11/17/21 01:45 55 L 22 109/63 100 11/17/21 01:30 76 22 125/96 100 11/17/21 01:15 53 L 22 115/65 100 11/17/21 01:00 54 L 22 112/60 100 11/17/21 00:45 52 L 22 140/82 100 11/17/21 00:30 52 L 22 88/31 98 11/17/21 00:15 59 L 22 114/66 98 11/17/21 00:08 62 114/66 97 11/17/21 00:00 98.3 F 69 75 22 114/66 96 11/16/21 23:45 82 22 160/79 94 11/16/21 23:31 89 22 115/69 96 11/16/21 23:15 95 H 22 115/69 100 11/16/21 23:00 76 22 115/69 99 11/16/21 22:45 74 22 108/54 99 11/16/21 22:31 74 22 108/54 99 11/16/21 22:15 67 22 108/54 99 11/16/21 22:07 68 22 108/54 98 11/16/21 22:01 73 19 108/54 98 11/16/21 21:45 67 21 108/54 98 11/16/21 21:31 75 23 108/54 98 11/16/21 21:15 75 22 108/54 98 11/16/21 21:00 67 22 108/54 98 11/16/21 20:45 70 22 112/51 98 11/16/21 20:31 74 20 112/51 98 11/16/21 20:15 73 23 112/51 100 11/16/21 20:13 74 112/51 98 11/16/21 20:00 97.9 F 69 68 22 112/51 98 11/16/21 19:45 72 21 123/63 98 11/16/21 19:30 73 22 97/48 97 11/16/21 19:15 71 22 106/58 97 11/16/21 19:00 72 22 111/51 96 11/16/21 18:45 76 18 135/73 96 11/16/21 18:30 70 22 110/59 96 11/16/21 18:15 77 22 142/71 95 11/16/21 18:00 86 21 121/101 95 11/16/21 17:45 73 22 136/69 95 11/16/21 17:30 80 19 133/74 95 11/16/21 17:15 97.8 F 73 22 125/69 96 95 11/16/21 17:00 79 22 116/61 94 11/16/21 16:45 73 22 115/56 94 11/16/21 16:30 71 22 109/55 92 11/16/21 16:24 72 130/71 91 11/16/21 16:15 64 22 116/52 97 11/16/21 16:00 66 67 22 121/62 97 11/16/21 15:45 65 22 134/71 97 - Physical Examination General: No Apparent Distress HEENT: Positive: Normocephaly Neck: Positive: trachea midline. Negative: JVD/HJR Cardiac: Positive: Reg Rate and Rhythm Lungs: Positive: Ventilated Respirations Neuro: Positive: Other (intubated but awake and alert. Following commands. ) Abdomen: Positive: Soft, Active Bowel Sounds Skin: Negative: Rash Extremities: Present: edema (Chronic lymphedema bilateral lower extremities) - Labs and Meds CBC 11/17/21 Range/Units 04:15 WBC 11.8 H (4.5-11.0) K/mm3 RBC 3.02 L (3.65-5.03) M/mm3 Hgb 8.1 L (11.8-15.2) gm/dl Hct 26.9 L (35.5-45.6) % Plt Count 223 (140-440) K/mm3 Comprehensive Metabolic Panel 11/17/21 Range/Units 04:15 Sodium 139 (137-145) mmol/L Potassium 3.6 (3.6-5.0) mmol/L Chloride 101.1 (98-107) mmol/L Carbon Dioxide 25 (22-30) mmol/L BUN 33 H (9-20) mg/dL Creatinine 6.2 H (0.8-1.3) mg/dL Glucose 118 H (75-100) mg/dL Calcium 8.5 (8.4-10.2) mg/dL - Imaging and Cardiology EKG: report reviewed, image reviewed Echo: report reviewed - Telemetry EKG Rhythm: Sinus Rhythm - EKG Sinus rhythms and dysrhythmias: sinus rhythm - Allied health notes Allied health notes reviewed: nursing
[2021-11-18] MEDS: fentaNYL DRIP Premix 2,000 MCG/100 ML BAG IV SCH ×8 (00:08→23:51)
[2021-11-18] MEDS: INSULIN LISPRO 100 UNIT/ML SUB-Q SCH ×4 (00:15→17:51)
--- NOTE | 2021-11-18 04:00 | XRay Report ---
CHEST 1 VIEW INDICATION / CLINICAL INFORMATION: follow up respiratory failure. COMPARISON: Chest x-ray 11/17/2021 FINDINGS: SUPPORT DEVICES: Stable, satisfactory device positioning. HEART / MEDIASTINUM: Stable cardiomegaly LUNGS / PLEURA: Scattered bilateral midlung airspace opacities remain present as does worsened opacit y right lung base thought to reflect right lower lobe atelectasis. No pneumothorax. BONES: No significant osseous abnormality. ADDITIONAL FINDINGS: No significant additional findings. IMPRESSION: 1. Worsened right lower lobe atelectasis suggested. 2. Little change in scattered midlung opacities demonstrated bilaterally. Signer Name: Rubén Dc II, MD Signed: 11/18/2021 3:56 AM Workstation Name: [id number]
[2021-11-18 04:54] LABS: ABG Base Excess 2.4 mmol/L (-2.0-3.0); ABG HCO3 26.2 mmol/L (20.0-26.0); ABG Methemoglobin 0.4 % (0.0-1.5); ABG Oxygen Saturation 98.1 % (95.0-99.0); ABG PCO2 37.1 mm Hg; ABG PH 7.467 pH Units (7.350-7.450)
[2021-11-18 05:40] LABS: Hematocrit 25.3 % (35.5-45.6); Hemoglobin 7.8 gm/dl (11.8-15.2); Mean Corpuscular HGB Conc 31 % (32-34); Mean Corpuscular Volume 88 fl (84-94); Platelet Count 229 K/mm3 (140-440); Red Blood Count 2.88 M/mm3 (3.65-5.03); Red Cell Distribution Width 18.7 % (13.2-15.2)
[2021-11-18 05:59] LABS: Calcium 8.4 mg/dL (8.4-10.2)
[2021-11-18] MEDS: HEPARIN 5,000 UNIT/1 ML VIAL SUB-Q SCH ×2 (09:01→21:46)
[2021-11-18] MEDS: DOCUSATE SODIUM 100 MG/10 ML ORAL LIQD FEEDTUBE SCH ×2 (09:01→21:45)
[2021-11-18] MEDS: FAMOTIDINE 20 MG TAB FEEDTUBE SCH (09:02)
[2021-11-18] MEDS: ASPIRIN 325 MG TAB FEEDTUBE SCH (09:02)
[2021-11-18] MEDS: SENNOSIDES 8.6 MG TAB FEEDTUBE SCH ×2 (09:02→21:45)
--- NOTE | 2021-11-18 09:59 | Progress Note ---
Assessment and Plan Acute respiratory failure Pneumonia Hypoxia KD (acute kidney injury) on top of CKD Hyperkalemia Diabetes Elevated troponin Hypertension Obesity Acidosis Plan -no signs of renal recover, cont to have low UOP -cont daily HD for clearance and volume removal for now, ordered again for today -Renal ultrasound- Left kidney no visualized. No hydronephrosis to right kidney -Intubated on Vent -Renally dose all medications -Obtain daily weights -Monitor I/O's daily -Assess dialysis needs daily Subjective Date of service: 11/18/21 Principal diagnosis: Acute respiratory failure, Interval history: tolerating HD Objective - Vital Signs Vital signs: Vital Signs - 12hr 11/17/21 11/17/21 11/17/21 22:00 22:15 22:30 Temperature Pulse Rate 70 64 65 Pulse Rate [ From Monitor] Respiratory 22 Rate Blood Pressure 114/68 104/54 118/67 O2 Sat by Pulse 95 95 95 Oximetry 11/17/21 11/17/21 11/17/21 22:45 23:00 23:15 Temperature Pulse Rate 64 65 62 Pulse Rate [ From Monitor] Respiratory 22 Rate Blood Pressure 114/63 119/68 117/64 O2 Sat by Pulse 96 95 95 Oximetry 11/17/21 11/17/21 11/17/21 23:21 23:30 23:45 Temperature 98.8 F Pulse Rate 62 67 Pulse Rate [ From Monitor] Respiratory Rate Blood Pressure 121/70 117/75 O2 Sat by Pulse 96 95 Oximetry 11/18/21 11/18/21 11/18/21 00:00 00:06 00:15 Temperature Pulse Rate 64 80 77 Pulse Rate [ 64 From Monitor] Respiratory 20 Rate Blood Pressure 120/69 120/69 142/79 O2 Sat by Pulse 96 96 97 Oximetry 11/18/21 11/18/21 11/18/21 00:30 00:45 01:00 Temperature Pulse Rate 65 61 59 L Pulse Rate [ From Monitor] Respiratory 22 Rate Blood Pressure 110/54 99/51 103/57 O2 Sat by Pulse 95 94 98 Oximetry 11/18/21 11/18/21 11/18/21 01:15 01:30 01:45 Temperature Pulse Rate 56 L 55 L 55 L Pulse Rate [ From Monitor] Respiratory 22 Rate Blood Pressure 96/53 98/51 98/52 O2 Sat by Pulse 97 97 98 Oximetry 11/18/21 11/18/21 11/18/21 02:00 02:15 02:30 Temperature Pulse Rate 53 L 55 L 60 Pulse Rate [ From Monitor] Respiratory 22 22 Rate Blood Pressure 101/55 116/75 117/69 O2 Sat by Pulse 98 98 98 Oximetry 11/18/21 11/18/21 11/18/21 02:45 03:00 03:15 Temperature Pulse Rate 66 61 68 Pulse Rate [ From Monitor] Respiratory 22 13 22 Rate Blood Pressure 130/78 126/74 139/84 O2 Sat by Pulse 98 98 97 Oximetry 11/18/21 11/18/21 11/18/21 03:18 03:30 03:45 Temperature 98 F Pulse Rate 71 62 Pulse Rate [ From Monitor] Respiratory 22 Rate Blood Pressure 148/89 118/65 O2 Sat by Pulse 97 97 Oximetry 11/18/21 11/18/21 11/18/21 04:00 04:01 04:15 Temperature Pulse Rate 58 L 64 Pulse Rate [ 55 L From Monitor] Respiratory 22 Rate Blood Pressure 118/65 118/65 O2 Sat by Pulse 98 97 98 Oximetry 11/18/21 11/18/21 11/18/21 04:31 04:36 04:45 Temperature Pulse Rate 57 L 53 L 59 L Pulse Rate [ From Monitor] Respiratory 22 Rate Blood Pressure 102/59 93/53 91/48 O2 Sat by Pulse 100 100 99 Oximetry 11/18/21 11/18/21 11/18/21 05:00 05:15 05:30 Temperature Pulse Rate 53 L 53 L 55 L Pulse Rate [ From Monitor] Respiratory 20 20 20 Rate Blood Pressure 93/53 92/51 96/55 O2 Sat by Pulse 100 100 100 Oximetry 11/18/21 11/18/21 11/18/21 05:45 06:00 06:15 Temperature Pulse Rate 58 L 62 65 Pulse Rate [ From Monitor] Respiratory 20 20 20 Rate Blood Pressure 105/62 121/81 122/71 O2 Sat by Pulse 99 99 99 Oximetry 11/18/21 11/18/21 11/18/21 06:30 06:45 07:00 Temperature Pulse Rate 63 62 62 Pulse Rate [ From Monitor] Respiratory 21 20 20 Rate Blood Pressure 128/77 112/67 113/63 O2 Sat by Pulse 100 100 100 Oximetry 11/18/21 11/18/2111/18/22 07:15 07:30 07:33 Temperature Pulse Rate 60 60 58 L Pulse Rate [ From Monitor] Respiratory 20 20 Rate Blood Pressure 109/63 108/68 108/68 O2 Sat by Pulse 100 100 100 Oximetry 11/18/21 11/18/21 11/18/21 07:45 08:00 08:15 Temperature 96.7 F L Pulse Rate 58 L 58 L 56 L Pulse Rate [ 56 L From Monitor] Respiratory 20 20 20 Rate Blood Pressure 102/61 104/58 107/65 O2 Sat by Pulse 99 98 100 Oximetry 11/18/21 11/18/21 11/18/21 08:30 08:45 09:00 Temperature Pulse Rate 58 L 58 L 57 L Pulse Rate [ From Monitor] Respiratory 20 20 20 Rate Blood Pressure 106/60 109/62 103/61 O2 Sat by Pulse 100 100 100 Oximetry - Lab 11/18/21 04:00 11/18/21 04:00 Most recent lab results ABG pH 7.467 pH Units (7.350-7.450) H 11/18/21 04:35 ABG pCO2 37.1 mm Hg 11/18/21 04:35 ABG pO2 110.0 mm Hg (80.0-90.0) H 11/18/21 04:35 ABG HCO3 26.2 mmol/L (20.0-26.0) H 11/18/21 04:35 ABG O2 Saturation 98.1 % (95.0-99.0) 11/18/21 04:35 Calcium 8.4 mg/dL (8.4-10.2) 11/18/21 04:00 Phosphorus 3.20 mg/dL (2.5-4.5) 11/18/21 04:00 Magnesium 1.80 mg/dL (1.7-2.3) 11/18/21 04:00 Urine Creatinine 189.3 mg/dL (0.1-20.0) H 11/12/21 02:20 Urine Sodium 30 mmol/L 11/12/21 02:20 Medications & Allergies - Medications Allergies/Adverse Reactions: Allergies No Known Allergies Allergy (Verified 11/11/21 20:58) Active Medications: Generic Name Dose Route Start Last Admin Trade Name Freq PRN Reason Stop Dose Admin Acetaminophen 650 mg 11/11/21 22:40 Acetaminophen 325 Mg Tab PO Q4H PRN Pain MILD(1-3)/Fever >100.5/SOTO Albuterol 2.5 mg 11/11/21 22:40 Albuterol 2.5 Mg/3 Ml Nebu IH Q3HRT PRN Shortness Of Breath Aspirin 325 mg 11/17/21 10:00 11/18/21 09:02 Aspirin 325 Mg Tab FEEDTUBE 325 mg QDAY BAO Administration Atorvastatin Calcium 40 mg 11/17/21 22:00 11/17/21 21:10 Atorvastatin 40 Mg Tab FEEDTUBE 40 mg QHS BAO Administration Dextrose 0 ml 11/11/21 23:03 Dextrose 10% *Hypoglycemia IV PRN PRN Hypoglycemia Docusate Sodium 100 mg 11/17/21 10:00 11/18/21 09:01 Docusate Sodium 100 Mg/10 Ml Oral Liqd FEEDTUBE 100 mg BID BAO Administration Famotidine 20 mg 11/17/21 10:00 11/18/21 09:02 Famotidine 20 Mg Tab FEEDTUBE 20 mg QDAY BAO Administration Fentanyl 50 mcg 11/11/21 20:56 11/12/21 00:12 Fentanyl 100 Mcg/2 Ml Inj IV 50 mcg Q10MIN PRN Administration ANALGESIA Heparin Sodium (Porcine) 5,000 unit 11/12/21 10:00 11/18/21 09:01 Heparin 5,000 Unit/1 Ml Vial SUB-Q 5,000 unit Q12HR BAO Administration Hydrophilic Ointment 1 applic 11/11/21 20:56 Lip Therapy Vaseline TP Q2HR PRN Dry Lips Fentanyl Citrate 2,000 mcg in 100 mls @ 13.608 mls/hr 11/11/21 21:00 11/18/21 06:29 Fentanyl Drip Premix IV 2 mcg/kg/hr TITR BAO 27.216 mls/hr Administration Protocol 1 MCG/KG/HR NORepinephrine/NS 8 MG-250 ML 8 mg in 250 mls @ 3.75 mls/hr 11/11/21 23:00 11/17/21 21:11 Norepinephrine/Ns 8 Mg-250 Ml (Double Conc) IV 1.07 mcg/min TITRATE BAO 2 mls/hr Titration Protocol 2 MCG/MIN Propofol 1,000 mg in 100 mls @ 8.166 mls/hr 11/13/21 09:00 11/18/21 07:49 Diprivan 10 Mg/Ml IV 15 mcg/kg/min TITR BAO 24.498 mls/hr Administration Protocol 5 MCG/KG/MIN Sodium Chloride 100 mls @ 999 mls/hr 11/16/21 10:22 Nacl 0.9% IV LONG PRN Hypotension Insulin Human Lispro 0 unit 11/12/21 00:00 11/18/21 06:05 Insulin Lispro 100 Unit/Ml SUB-Q Not Given Q6HR [facility] Protocol Multi-Ingred Cream/Lotion/Oil/Oint 1 applic 11/11/21 20:56 Mineral Oil/Petrolatum, White Ophth Oint 3.5 Gm OU Q4HR PRN Dry Eye(s) Ondansetron HCl 4 mg 11/11/21 22:40 Ondansetron 4 Mg/2 Ml Inj IV Q8H PRN Nausea And Vomiting Senna 8.6 mg 11/17/21 10:00 11/18/21 09:02 Sennosides 8.6 Mg Tab FEEDTUBE 8.6 mg Q12H BAO Administration Sodium Chloride 10 ml 11/12/21 10:00 11/18/21 09:02 Sodium Chloride 0.9% 10 Ml Flush Syringe IV 10 ml BID BAO Administration Sodium Chloride 10 ml 11/11/21 22:40 Sodium Chloride 0.9% 10 Ml Flush Syringe IV PRN PRN LINE FLUSH
--- NOTE | 2021-11-18 10:35 | Progress Note ---
Assessment and Plan 56 y/o morbidly obese male with acute respiratory failure, requiring intubation and now in acute renal failure and in need of HD 11/18/21: Await Gen Surg comments as they were checking on OR supplies. If not able to, will start working on transfer as patient will need trach given current clinical state. HD per renal. Wean pressors as tolerated. Guarded to poor prognosis. 11/17/21: Follow up Gen Surge eval, they are checking to see the materials they have in OR. Reviewed neck ultrasound, per their read trachea is only about an 1 inch away from the skin. Shocking given his neck size but given the difficulty in intubation and his entrance being anterior, this makes sense. Will defer to surgery call but have no problem with calling for transfer as well. Wean Pressors as tolerated. HD per renal. Continue sedation for RASS of 0. Guarded to poor prognosis. 11/16/21: Given patient body habitus, difficult airway and likely no improvement in current clinical state, will need trach. However given his neck size, I would suggest this be done by ENT as I am not even sure that the bovona XLT is long enough. Ok to consult surgery here but I suggest seeking transfer to a tertiary care facility with ENT to attempt this. Also suggest obtaining neck CT to further evaluate total neck anatomy that way if we need to send this over prior to acceptance we can. Guarded prognosis but mental status is intact. HD per renal. 11/15/21: stop sedation. Attempt PSV. Bipap PRN and QHS. Hopeful extubation today. HD per renal. 11/14/21: Wean PEEP again today and attempt PSV trial. If passes will attempt extubation. HD per renal 11/13/21: HD per renal. No PSV trials today. Wean PEEP after HD. Guarded prognosis. 1. Obtain ABG 2. Place Iglesias catheter 3. Wean Pressors for maps greater than 65 4. Insulin, D50 for Hyperkalemia, and HD per renal 5. Stopped scheduled duonebs 6. Stopped abx 7. Obtain BNP with morning labs 8. Guarded prognosis. CCT 31 minutes. Subjective Date of service: 11/18/21 Principal diagnosis: Acute respiratory failure, Interval history: Intubated and sedated on Diprovan 15 and Fent. Still on Levo at 2 but stable BP's. HD should happen today. Good sats and good ABG on 30% and 8 of PEEP. Objective Vital Signs - 12hr 11/17/21 11/17/21 11/17/21 22:45 23:00 23:15 Temperature Pulse Rate 64 65 62 Pulse Rate [ From Monitor] Respiratory 22 Rate Blood Pressure 114/63 119/68 117/64 O2 Sat by Pulse 96 95 95 Oximetry 11/17/21 11/17/21 11/17/21 23:21 23:30 23:45 Temperature 98.8 F Pulse Rate 62 67 Pulse Rate [ From Monitor] Respiratory Rate Blood Pressure 121/70 117/75 O2 Sat by Pulse 96 95 Oximetry 11/18/21 11/18/21 11/18/21 00:00 00:06 00:15 Temperature Pulse Rate 64 80 77 Pulse Rate [ 64 From Monitor] Respiratory Rate Blood Pressure 120/69 120/69 142/79 O2 Sat by Pulse 96 96 97 Oximetry 11/18/21 11/18/21 11/18/21 00:30 00:45 01:00 Temperature Pulse Rate 65 61 59 L Pulse Rate [ From Monitor] Respiratory 22 Rate Blood Pressure 110/54 99/51 103/57 O2 Sat by Pulse 95 94 98 Oximetry 11/18/21 11/18/21 11/18/21 01:15 01:30 01:45 Temperature Pulse Rate 56 L 55 L 55 L Pulse Rate [ From Monitor] Respiratory 22 Rate Blood Pressure 96/53 98/51 98/52 O2 Sat by Pulse 97 97 98 Oximetry 11/18/21 11/18/21 11/18/21 02:00 02:15 02:30 Temperature Pulse Rate 53 L 55 L 60 Pulse Rate [ From Monitor] Respiratory 22 Rate Blood Pressure 101/55 116/75 117/69 O2 Sat by Pulse 98 98 98 Oximetry 11/18/21 11/18/21 11/18/21 02:45 03:00 03:15 Temperature Pulse Rate 66 61 68 Pulse Rate [ From Monitor] Respiratory 13 22 Rate Blood Pressure 130/78 126/74 139/84 O2 Sat by Pulse 98 98 97 Oximetry 11/18/21 11/18/21 11/18/21 03:18 03:30 03:45 Temperature 98 F Pulse Rate 71 62 Pulse Rate [ From Monitor] Respiratory 22 Rate Blood Pressure 148/89 118/65 O2 Sat by Pulse 97 97 Oximetry 11/18/21 11/18/21 11/18/21 04:00 04:01 04:15 Temperature Pulse Rate 58 L 64 Pulse Rate [ 55 L From Monitor] Respiratory 22 22 Rate Blood Pressure 118/65 118/65 O2 Sat by Pulse 98 97 98 Oximetry 11/18/21 11/18/21 11/18/21 04:31 04:36 04:45 Temperature Pulse Rate 57 L 53 L 59 L Pulse Rate [ From Monitor] Respiratory 22 22 Rate Blood Pressure 102/59 93/53 91/48 O2 Sat by Pulse 100 100 99 Oximetry 11/18/21 11/18/21 11/18/21 05:00 05:15 05:30 Temperature Pulse Rate 53 L 53 L 55 L Pulse Rate [ From Monitor] Respiratory 20 20 20 Rate Blood Pressure 93/53 92/51 96/55 O2 Sat by Pulse 100 100 100 Oximetry 11/18/21 11/18/21 11/18/21 05:45 06:00 06:15 Temperature Pulse Rate 58 L 62 65 Pulse Rate [ From Monitor] Respiratory 20 20 20 Rate Blood Pressure 105/62 121/81 122/71 O2 Sat by Pulse 99 99 99 Oximetry 11/18/21 11/18/21 11/18/21 06:30 06:45 07:00 Temperature Pulse Rate 63 62 62 Pulse Rate [ From Monitor] Respiratory 21 20 20 Rate Blood Pressure 128/77 112/67 113/63 O2 Sat by Pulse 100 100 100 Oximetry 11/18/21 11/18/21 11/18/21 07:15 07:30 07:33 Temperature Pulse Rate 60 60 58 L Pulse Rate [ From Monitor] Respiratory 20 20 Rate Blood Pressure 109/63 108/68 108/68 O2 Sat by Pulse 100 100 100 Oximetry 11/18/21 11/18/21 11/18/21 07:45 08:00 08:15 Temperature 96.7 F L Pulse Rate 58 L 58 L 56 L Pulse Rate [ 56 L From Monitor] Respiratory 20 20 20 Rate Blood Pressure 102/61 104/58 107/65 O2 Sat by Pulse 99 98 100 Oximetry 11/18/21 11/18/21 11/18/21 08:30 08:45 09:00 Temperature Pulse Rate 58 L 58 L 57 L Pulse Rate [ From Monitor] Respiratory 20 20 20 Rate Blood Pressure 106/60 109/62 103/61 O2 Sat by Pulse 100 100 100 Oximetry Constitutional: comatose Eyes: non-icteric ENT: other (orally intubated and sedated) Neck: supple, other (large in circumference) Effort: normal Ascultation: Bilateral: diminished breath sounds Cardiovascular: regular rate and rhythm Gastrointestinal: normoactive bowel sounds Extremities: edema, anasarca Neurologic: unable to assess CBC and BMP: 11/18/21 04:00 11/18/21 04:00 ABG, PT/INR, D-dimer: ABG ABG pH 7.467 pH Units (7.350-7.450) H 11/18/21 04:35 ABG pCO2 37.1 mm Hg 11/18/21 04:35 ABG pO2 110.0 mm Hg (80.0-90.0) H 11/18/21 04:35 ABG O2 Saturation 98.1 % (95.0-99.0) 11/18/21 04:35 Abnormal lab findings: Abnormal Labs 11/11/21 11/11/21 11/11/21 19:49 19:49 23:29 WBC 11.5 H RBC Hgb 10.1 L Hct 34.8 L MCH 27 L MCHC 29 L RDW 20.1 H Lymph % (Auto) 10.0 L [place] % (Auto) 8.8 H Lymph # (Auto) 1.1 L [place] # (Auto) 1.0 H Seg Neutrophils % 79.8 H Seg Neuts % (Manual) Lymphocytes % (Manual) Seg Neutrophils # 9.2 H Seg Neutrophils # Man Lymphocytes # (Manual) ABG pH ABG pO2 ABG HCO3 ABG O2 Saturation ABG Base Excess ABG Hemoglobin Sodium Potassium 7.6 H* Chloride 107.8 H Carbon Dioxide 13 L BUN 107 H Creatinine 13.8 H Glucose POC Glucose Calcium 7.5 L Phosphorus Magnesium Iron TIBC Total Creatine Kinase 268 H Troponin T 0.324 H* NT-Pro-B Natriuret Pep Total Protein 9.1 H Albumin 3.0 L PTH Intact Urine WBC (Auto) Urine Creatinine 11/11/21 11/11/21 11/12/21 23:29 23:29 02:20 WBC RBC Hgb Hct MCH MCHC RDW Lymph % (Auto) [place] % (Auto) Lymph # (Auto) [place] # (Auto) Seg Neutrophils % Seg Neuts % (Manual) Lymphocytes % (Manual) Seg Neutrophils # Seg Neutrophils # Man Lymphocytes # (Manual) ABG pH ABG pO2 ABG HCO3 ABG O2 Saturation ABG Base Excess ABG Hemoglobin Sodium Potassium Chloride Carbon Dioxide BUN Creatinine Glucose POC Glucose Calcium Phosphorus Magnesium Iron 24 L TIBC 157 L Total Creatine Kinase Troponin T NT-Pro-B Natriuret Pep Total Protein Albumin PTH Intact 1174 H Urine WBC (Auto) Urine Creatinine 189.3 H 11/12/21 11/12/21 11/12/21 02:20 02:28 06:55 WBC 20.5 H RBC 3.54 L Hgb 9.4 L Hct 32.3 L MCH 27 L MCHC 29 L RDW 20.0 H Lymph % (Auto) [place] % (Auto) Lymph # (Auto) [place] # (Auto) Seg Neutrophils % Seg Neuts % (Manual) 89.0 H Lymphocytes % (Manual) 0 L Seg Neutrophils # Seg Neutrophils # Man 18.2 H Lymphocytes # (Manual) 0.0 L ABG pH 7.172 L* ABG pO2 100.6 H ABG HCO3 17.4 L ABG O2 Saturation ABG Base Excess -10.6 L ABG Hemoglobin 9.4 L Sodium Potassium Chloride Carbon Dioxide BUN Creatinine Glucose POC Glucose Calcium Phosphorus Magnesium Iron TIBC Total Creatine Kinase Troponin T NT-Pro-B Natriuret Pep Total Protein Albumin PTH Intact Urine WBC (Auto) 12.0 H Urine Creatinine 11/12/21 11/12/21 11/12/21 06:55 09:10 12:01 WBC RBC Hgb Hct MCH MCHC RDW Lymph % (Auto) [place] % (Auto) Lymph # (Auto) [place] # (Auto) Seg Neutrophils % Seg Neuts % (Manual) Lymphocytes % (Manual) Seg Neutrophils # Seg Neutrophils # Man Lymphocytes # (Manual) ABG pH 7.296 L ABG pO2 237.3 H ABG HCO3 ABG O2 Saturation 99.3 H ABG Base Excess -6.0 L ABG Hemoglobin 8.8 L Sodium Potassium 5.5 H D Chloride 107.1 H Carbon Dioxide 19 L BUN 78 H Creatinine 9.4 H Glucose 119 H POC Glucose 106 H Calcium 8.1 L Phosphorus Magnesium Iron TIBC Total Creatine Kinase Troponin T NT-Pro-B Natriuret Pep Total Protein Albumin PTH Intact Urine WBC (Auto) Urine Creatinine 11/12/21 11/12/21 11/12/21 16:46 16:46 22:30 WBC RBC Hgb Hct MCH MCHC RDW Lymph % (Auto) [place] % (Auto) Lymph # (Auto) [place] # (Auto) Seg Neutrophils % Seg Neuts % (Manual) Lymphocytes % (Manual) Seg Neutrophils # Seg Neutrophils # Man Lymphocytes # (Manual) ABG pH ABG pO2 ABG HCO3 ABG O2 Saturation ABG Base Excess ABG Hemoglobin Sodium 146 H Potassium Chloride 108.2 H Carbon Dioxide 21 L BUN 66 H Creatinine 9.8 H Glucose 125 H POC Glucose Calcium 7.8 L Phosphorus Magnesium Iron TIBC Total Creatine Kinase Troponin T 0.319 H* 0.313 H* NT-Pro-B Natriuret Pep Total Protein Albumin PTH Intact Urine WBC (Auto) Urine Creatinine 11/12/21 11/12/21 11/13/21 23:18 Unknown 04:00 WBC 17.2 H RBC 3.09 L Hgb 8.4 L Hct 27.5 L MCH 27 L MCHC 30 L RDW 19.6 H Lymph % (Auto) [place] % (Auto) Lymph # (Auto) [place] # (Auto) Seg Neutrophils % Seg Neuts % (Manual) Lymphocytes % (Manual) Seg Neutrophils # Seg Neutrophils # Man Lymphocytes # (Manual) ABG pH ABG pO2 ABG HCO3 ABG O2 Saturation ABG Base Excess ABG Hemoglobin Sodium Potassium Chloride Carbon Dioxide BUN Creatinine Glucose POC Glucose 120 H Calcium Phosphorus Magnesium Iron TIBC Total Creatine Kinase Troponin T NT-Pro-B Natriuret Pep 3674 H Total Protein Albumin PTH Intact Urine WBC (Auto) Urine Creatinine 11/13/21 11/13/21 11/13/21 04:00 04:00 05:23 WBC RBC Hgb Hct MCH MCHC RDW Lymph % (Auto) [place] % (Auto) Lymph # (Auto) [place] # (Auto) Seg Neutrophils % Seg Neuts % (Manual) Lymphocytes % (Manual) Seg Neutrophils # Seg Neutrophils # Man Lymphocytes # (Manual) ABG pH 7.274 L ABG pO2 93.2 H ABG HCO3 ABG O2 Saturation ABG Base Excess -3.9 L ABG Hemoglobin 8.2 L Sodium Potassium Chloride Carbon Dioxide 21 L BUN 71 H Creatinine 9.9 H Glucose 128 H POC Glucose 117 H Calcium 7.7 L Phosphorus 5.10 H Magnesium 1.60 L Iron TIBC Total Creatine Kinase Troponin T NT-Pro-B Natriuret Pep Total Protein Albumin PTH Intact Urine WBC (Auto) Urine Creatinine 11/13/21 11/13/21 11/14/21 16:20 23:31 04:10 WBC RBC Hgb Hct MCH MCHC RDW Lymph % (Auto) [place] % (Auto) Lymph # (Auto) [place] # (Auto) Seg Neutrophils % Seg Neuts % (Manual) Lymphocytes % (Manual) Seg Neutrophils # Seg Neutrophils # Man Lymphocytes # (Manual) ABG pH ABG pO2 107.1 H ABG HCO3 ABG O2 Saturation ABG Base Excess ABG Hemoglobin 6.5 L Sodium Potassium Chloride Carbon Dioxide BUN Creatinine Glucose POC Glucose 125 H 123 H Calcium Phosphorus Magnesium Iron TIBC Total Creatine Kinase Troponin T NT-Pro-B Natriuret Pep Total Protein Albumin PTH Intact Urine WBC (Auto) Urine Creatinine 11/14/21 11/14/21 11/14/21 06:30 06:30 15:00 WBC 11.2 H RBC 3.03 L Hgb 8.1 L Hct 26.6 L MCH 27 L MCHC 30 L RDW 19.3 H Lymph % (Auto) [place] % (Auto) Lymph # (Auto) [place] # (Auto) Seg Neutrophils % Seg Neuts % (Manual) Lymphocytes % (Manual) Seg Neutrophils # Seg Neutrophils # Man Lymphocytes # (Manual) ABG pH ABG pO2 ABG HCO3 ABG O2 Saturation ABG Base Excess ABG Hemoglobin Sodium Potassium 3.0 L D 3.4 L Chloride Carbon Dioxide BUN 41 H Creatinine 7.0 H Glucose 107 H POC Glucose Calcium 7.5 L Phosphorus Magnesium 1.60 L Iron TIBC Total Creatine Kinase Troponin T NT-Pro-B Natriuret Pep Total Protein Albumin PTH Intact Urine WBC (Auto) Urine Creatinine 11/14/21 11/15/21 11/15/21 17:24 04:00 04:00 WBC 11.3 H RBC 3.00 L Hgb 8.1 L Hct 26.3 L MCH 27 L MCHC 31 L RDW 19.2 H Lymph % (Auto) [place] % (Auto) Lymph # (Auto) [place] # (Auto) Seg Neutrophils % Seg Neuts % (Manual) Lymphocytes % (Manual) Seg Neutrophils # Seg Neutrophils # Man Lymphocytes # (Manual) ABG pH ABG pO2 ABG HCO3 ABG O2 Saturation ABG Base Excess ABG Hemoglobin Sodium Potassium 3.4 L Chloride Carbon Dioxide BUN 32 H Creatinine 5.9 H Glucose 117 H POC Glucose 124 H Calcium 8.3 L Phosphorus Magnesium Iron TIBC Total Creatine Kinase Troponin T NT-Pro-B Natriuret Pep Total Protein Albumin PTH Intact Urine WBC (Auto) Urine Creatinine 11/15/21 11/15/21 11/16/21 13:58 16:20 04:00 WBC 13.2 H RBC 2.88 L Hgb 7.8 L Hct 25.2 L MCH 27 L MCHC 31 L RDW 19.1 H Lymph % (Auto) [place] % (Auto) Lymph # (Auto) [place] # (Auto) Seg Neutrophils % Seg Neuts % (Manual) Lymphocytes % (Manual) Seg Neutrophils # Seg Neutrophils # Man Lymphocytes # (Manual) ABG pH 7.335 L ABG pO2 254.0 H ABG HCO3 26.2 H ABG O2 Saturation 99.4 H ABG Base Excess ABG Hemoglobin 8.5 L Sodium Potassium Chloride Carbon Dioxide BUN Creatinine Glucose POC Glucose 132 H Calcium Phosphorus Magnesium Iron TIBC Total Creatine Kinase Troponin T NT-Pro-B Natriuret Pep Total Protein Albumin PTH Intact Urine WBC (Auto) Urine Creatinine 11/16/21 11/16/21 11/16/21 04:00 04:05 11:06 WBC RBC Hgb Hct MCH MCHC RDW Lymph % (Auto) [place] % (Auto) Lymph # (Auto) [place] # (Auto) Seg Neutrophils % Seg Neuts % (Manual) Lymphocytes % (Manual) Seg Neutrophils # Seg Neutrophils # Man Lymphocytes # (Manual) ABG pH ABG pO2 115.6 H ABG HCO3 ABG O2 Saturation ABG Base Excess ABG Hemoglobin 8.1 L Sodium Potassium Chloride Carbon Dioxide BUN 44 H Creatinine 7.7 H Glucose 104 H POC Glucose 106 H Calcium 7.9 L Phosphorus Magnesium Iron TIBC Total Creatine Kinase Troponin T NT-Pro-B Natriuret Pep Total Protein Albumin PTH Intact Urine WBC (Auto) Urine Creatinine 11/16/21 11/16/21 11/17/21 18:05 23:51 04:15 WBC 11.8 H RBC 3.02 L Hgb 8.1 L Hct 26.9 L MCH 27 L MCHC 30 L RDW 18.9 H Lymph % (Auto) [place] % (Auto) Lymph # (Auto) [place] # (Auto) Seg Neutrophils % Seg Neuts % (Manual) Lymphocytes % (Manual) Seg Neutrophils # Seg Neutrophils # Man Lymphocytes # (Manual) ABG pH ABG pO2 ABG HCO3 ABG O2 Saturation ABG Base Excess ABG Hemoglobin Sodium Potassium Chloride Carbon Dioxide BUN Creatinine Glucose POC Glucose 109 H 118 H Calcium Phosphorus Magnesium Iron TIBC Total Creatine Kinase Troponin T NT-Pro-B Natriuret Pep Total Protein Albumin PTH Intact Urine WBC (Auto) Urine Creatinine 11/17/21 11/17/21 11/17/21 04:15 04:25 11:25 WBC RBC Hgb Hct MCH MCHC RDW Lymph % (Auto) [place] % (Auto) Lymph # (Auto) [place] # (Auto) Seg Neutrophils % Seg Neuts % (Manual) Lymphocytes % (Manual) Seg Neutrophils # Seg Neutrophils # Man Lymphocytes # (Manual) ABG pH ABG pO2 153.8 H ABG HCO3 ABG O2 Saturation ABG Base Excess ABG Hemoglobin 8.3 L Sodium Potassium Chloride Carbon Dioxide BUN 33 H Creatinine 6.2 H Glucose 118 H POC Glucose 108 H Calcium Phosphorus Magnesium Iron TIBC Total Creatine Kinase Troponin T NT-Pro-B Natriuret Pep Total Protein Albumin PTH Intact Urine WBC (Auto) Urine Creatinine 11/18/21 11/18/21 11/18/21 04:00 04:00 04:35 WBC RBC 2.88 L Hgb 7.8 L Hct 25.3 L MCH 27 L MCHC 31 L RDW 18.7 H Lymph % (Auto) [place] % (Auto) Lymph # (Auto) [place] # (Auto) Seg Neutrophils % Seg Neuts % (Manual) Lymphocytes % (Manual) Seg Neutrophils # Seg Neutrophils # Man Lymphocytes # (Manual) ABG pH 7.467 H ABG pO2 110.0 H ABG HCO3 26.2 H ABG O2 Saturation ABG Base Excess ABG Hemoglobin 8.1 L Sodium Potassium Chloride Carbon Dioxide BUN 28 H Creatinine 5.5 H Glucose POC Glucose Calcium Phosphorus Magnesium Iron TIBC Total Creatine Kinase Troponin T NT-Pro-B Natriuret Pep Total Protein Albumin PTH Intact Urine WBC (Auto) Urine Creatinine Allied health notes reviewed: nursing
--- NOTE | 2021-11-18 11:17 | Progress Note ---
<RUFUS ALVAREZ - Last Filed: 11/18/21 15:49> Assessment and Plan Assessment and plan: This is a 56-year-old male with DM, HTN, obesity, currently bedbound and past intubations admitted with acute hypoxic respiratory failure and acute renal failure Hospital course to date: 11/12: Overnight patient received a dialysis catheter and was initiated on dialysis. Iglesias catheter was also placed. Antibiotics discontinued. proBNP pending. Decrease in FiO2 related to ABG. Echocardiogram pending. Patient given X1 for potassium 5.5 and nutrition consulted for tube feedings. updated brother at bedside 11/13: Propofol letter for sedation as patient seems restless on the ventilator only on fentanyl. HD scheduled for today. [facility] plans to conduct PSV possibly Sunday. 11/14: Tolerated HD overnight, 2L removed. Plan for possible HD again today. Patient is tolerating PST today on low dose fentanyl, plan for possible extubation tomorrow. 11/15: SANA overnight. Remains on the vent and on low dose sedation. Continue to tolerate HD. Plan for PST and possible extubation today. 11/16: Failed extubation yesterday and had to be emergently reintubated due to hypoxia and decreased LOC. Patient is stable on the vent this am, remains on low dose sedation, while awake and following commands. CCM recommendations noted due to patient's body habitus, he might need to be trach/Peg. CT neck was canceled due to weight limit. General Surgery consulted for Trach/PEG eval. 11/17: Remains on the vent, sedation increased overnight due to increased agitation and low dose pressors were initiated. Patient tolerated HD yesterday, plan for HD again today. Plan for possible trach/PEG vs possible transfer for ENT eval for trach/PEG. Awaiting on General surgery recommendations. 11/18: SANA overnight. D/w CCM plan for US thyroid biopsy per General Surgery recommendation due thyroid nodule to r/o malignancy. Patient remains on low dose levophed gtt. Continue HD per Nephro. Neuro: Acute metabolic encephalopathy -Intubated on Fentanyl and prop drip, RASS 0 -RASS goal 0 to -1 -Avoid delirium -Reorientation as needed -Maintain sleep-wake cycle -aspiration/seizure precautions -As needed analgesia -Patient will open eyes to verbal stimuli -Consider neurology consult Cardiac: h/o HTN, elevated troponins -Cardiology consulted, appreciate recommendations -Blood pressure monitoring per protocol -S/p vasopressor support -Echocardiogram shows ejection fraction greater than 70 Respiratory: Acute hypoxic respiratory failure, ? [facility] consulted, appreciate recommendations -Intubated in the emergency department on 11/04 -11/15 Failed extubation had to be emergently reintubated due to hypoxia and decreased LOC -A.m. vent settings:AC/PRVC rate 22, tidal 550, PEEP 8, FiO2 30% -See RT notes for titration -A.m. ABG and CXR noted -VAP bundle -SPO2 monitoring -Per [facility] patient might need trach/PEG -General Surgery consulted GI: Protin calorie malnutrition, Morbid obesity -Continue enteral nutrition -NTR consulted for tube feedings -BR: Colace : Acute Renal Failure -FeNa 1.04% indicating either ATN or prerenal state -Nephrology consulted, appreciate recommendations -Vas-Cath placed at HD initiated 11/12 -HD per nephrology -Strict intake and output -Renally dose medications -Avoid nephrotoxic medications -Daily weights -Renal ultrasound pending -Trend BMP -Repeat magnesium Endo: h/o DM -Avoid hypoglycemia -SSI -Accu-Cheks q. 6 -Hemoglobin A1c 5.7 GI/DVT Prophylaxis - PPI- Pepcid - Heparin SubQ The high probability of a clinically significant, sudden or life threatening deterioration of the [multi] system(s) required my full and direct attention, intervention and personal management. The aggregate critical care time was [60] minutes. This time is in addition to time spent performing reported procedures but includes the following: [x] Data Review and interpretation [x] Patient assessment and monitoring of vital signs [x] Documentation [x] Medication orders and management Disposition Plan: icu Total Time Spent with Patient (Minutes): 60 History Interval history: Patient seen and examined at the bedside. Remains intubated and sedated on propofol and fentanyl. On low dose levophed this am. SANA overnight Hospitalist Physical - Constitutional Vitals: Temp Pulse Resp BP Pulse Ox 96.7 F L 57 L 20 103/61 100 11/18/21 08:00 11/18/21 09:00 11/18/21 09:00 11/18/21 09:00 11/18/21 09:00 General appearance: Present: no acute distress, obese, other (intubated and sedated, easily arousable and following commands) - EENT Eyes: Present: PERRL ENT: hearing intact - Neck Neck: Present: normal ROM - Respiratory Respiratory effort: normal Respiratory: bilateral: diminished - Cardiovascular Rhythm: regular Heart Sounds: Present: S1 & S2 - Extremities Extremities: no ischemia, pulses intact, pulses symmetrical Extremity abnormal: edema - Peripheral Assessment Generalized Edema Type: Non-pitting Edema Degree: 2+ Capillary Refill: < 3 seconds Skin Temperature: Warm Peripheral Pulses: within normal limits - Abdominal General gastrointestinal: soft, non-distended, normal bowel sounds - Integumentary Integumentary: Present: warm, dry - Psychiatric Psychiatric: appropriate mood/affect, cooperative - Neurologic Neurologic: moves all extremities (Except RUE- H/o Broken wrist), other (intu bated and sedated, easily arousable and following commands) - Allied Health Allied health notes reviewed: nursing, case management HEART Score - HEART Score Troponin: Troponin T 0.313 ng/mL (0.00-0.029) H* 11/12/21 22:30 Results - Labs CBC & Chem 7: 11/18/21 04:00 11/18/21 04:00 Labs: Laboratory Last Values WBC 10.9 K/mm3 (4.5-11.0) 11/18/21 04:00 RBC 2.88 M/mm3 (3.65-5.03) L 11/18/21 04:00 Hgb 7.8 gm/dl (11.8-15.2) L 11/18/21 04:00 Hct 25.3 % (35.5-45.6) L 11/18/21 04:00 MCV 88 fl (84-94) 11/18/21 04:00 MCH 27 pg (28-32) L 11/18/21 04:00 MCHC 31 % (32-34) L 11/18/21 04:00 RDW 18.7 % (13.2-15.2) H 11/18/21 04:00 Plt Count 229 K/mm3 (140-440) 11/18/21 04:00 Lymph % (Auto) 10.0 % (13.4-35.0) L 11/11/21 19:49 [place] % (Auto) 8.8 % (0.0-7.3) H 11/11/21 19:49 Eos % (Auto) 0.9 % (0.0-4.3) 11/11/21 19:49 Baso % (Auto) 0.5 % (0.0-1.8) 11/11/21 19:49 Lymph # (Auto) 1.1 K/mm3 (1.2-5.4) L 11/11/21 19:49 [place] # (Auto) 1.0 K/mm3 (0.0-0.8) H 11/11/21 19:49 Eos # (Auto) 0.1 K/mm3 (0.0-0.4) 11/11/21 19:49 Baso # (Auto) 0.1 K/mm3 (0.0-0.1) 11/11/21 19:49 Add Manual Diff Complete 11/12/21 06:55 Total Counted 100 11/12/21 06:55 Seg Neutrophils % Supervisor Border Department 11/12/21 06:55 Seg Neuts % (Manual) 89.0 % (40.0-70.0) H 11/12/21 06:55 Band Neutrophils % 5.0 % 11/12/21 06:55 Lymphocytes % (Manual) 0 % (13.4-35.0) L 11/12/21 06:55 Reactive Lymphs % (Man) 0 % 11/12/21 06:55 Monocytes % (Manual) 3.0 % (0.0-7.3) 11/12/21 06:55 Eosinophils % (Manual) 0 % (0.0-4.3) 11/12/21 06:55 Basophils % (Manual) 0 % (0.0-1.8) 11/12/21 06:55 Metamyelocytes % 3.0 % 11/12/21 06:55 Myelocytes % 0 % 11/12/21 06:55 Promyelocytes % 0 % 11/12/21 06:55 Blast Cells % 0 % 11/12/21 06:55 Nucleated RBC % Not Reportable 11/12/21 06:55 Seg Neutrophils # 9.2 K/mm3 (1.8-7.7) H 11/11/21 19:49 Seg Neutrophils # Man 18.2 K/mm3 (1.8-7.7) H 11/12/21 06:55 Band Neutrophils # 1.0 K/mm3 11/12/21 06:55 Lymphocytes # (Manual) 0.0 K/mm3 (1.2-5.4) L 11/12/21 06:55 Abs React Lymphs (Man) 0.0 K/mm3 11/12/21 06:55 Monocytes # (Manual) 0.6 K/mm3 (0.0-0.8) 11/12/21 06:55 Eosinophils # (Manual) 0.0 K/mm3 (0.0-0.4) 11/12/21 06:55 Basophils # (Manual) 0.0 K/mm3 (0.0-0.1) 11/12/21 06:55 Metamyelocytes # 0.6 K/mm3 11/12/21 06:55 Myelocytes # 0.0 K/mm3 11/12/21 06:55 Promyelocytes # 0.0 K/mm3 11/12/21 06:55 Blast Cells # 0.0 K/mm3 11/12/21 06:55 WBC Morphology Not Reportable 11/12/21 06:55 Hypersegmented Neuts Not Reportable 11/12/21 06:55 Hyposegmented Neuts Not Reportable 11/12/21 06:55 Hypogranular Neuts Not Reportable 11/12/21 06:55 Smudge Cells Not Reportable 11/12/21 06:55 Toxic Granulation 1+ 11/12/21 06:55 Toxic Vacuolation Not Reportable 11/12/21 06:55 Dohle Bodies Not Reportable 11/12/21 06:55 Pelger-Huet Anomaly Not Reportable 11/12/21 06:55 Lissa Rods Not Reportable 11/12/21 06:55 Platelet Estimate Consistent w auto 11/12/21 06:55 Clumped Platelets Not Reportable 11/12/21 06:55 Plt Clumps, EDTA Not Reportable 11/12/21 06:55 Large Platelets Not Reportable 11/12/21 06:55 Giant Platelets Not Reportable 11/12/21 06:55 Platelet Satelliting Not Reportable 11/12/21 06:55 Plt Morphology Comment Not Reportable 11/12/21 06:55 RBC Morphology Normal 11/12/21 06:55 Dimorphic RBCs Not Reportable 11/12/21 06:55 Polychromasia Not Reportable 11/12/21 06:55 Hypochromasia Not Reportable 11/12/21 06:55 Poikilocytosis Not Reportable 11/12/21 06:55 Anisocytosis Not Reportable 11/12/21 06:55 Microcytosis Not Reportable 11/12/21 06:55 Macrocytosis Not Reportable 11/12/21 06:55 Spherocytes Not Reportable 11/12/21 06:55 Pappenheimer Bodies Not Reportable 11/12/21 06:55 Sickle Cells Not Reportable 11/12/21 06:55 Target Cells Not Reportable 11/12/21 06:55 Tear Drop Cells Not Reportable 11/12/21 06:55 Ovalocytes Not Reportable 11/12/21 06:55 Helmet Cells Not Reportable 11/12/21 06:55 Shea-Beebe Bodies Not Reportable 11/12/21 06:55 Caret Rings Not Reportable 11/12/21 06:55 [place] Cells Not Reportable 11/12/21 06:55 Bite Cells Not Reportable 11/12/21 06:55 Crenated Cell Not Reportable 11/12/21 06:55 Elliptocytes Not Reportable 11/12/21 06:55 Acanthocytes (Spur) Not Reportable 11/12/21 06:55 Rouleaux Not Reportable 11/12/21 06:55 Hemoglobin C Crystals Not Reportable 11/12/21 06:55 Schistocytes Not Reportable 11/12/21 06:55 Malaria parasites Not Reportable 11/12/21 06:55 Nam Bodies Not Reportable 11/12/21 06:55 Hem Pathologist Commnt No 11/12/21 06:55 ABG pH 7.467 pH Units (7.350-7.450) H 11/18/21 04:35 ABG pCO2 37.1 mm Hg 11/18/21 04:35 ABG pO2 110.0 mm Hg (80.0-90.0) H 11/18/21 04:35 ABG HCO3 26.2 mmol/L (20.0-26.0) H 11/18/21 04:35 ABG O2 Saturation 98.1 % (95.0-99.0) 11/18/21 04:35 ABG O2 Content 11.3 (0.0-44) 11/18/21 04:35 ABG Base Excess 2.4 mmol/L (-2.0-3.0) 11/18/21 04:35 ABG Hemoglobin 8.1 gm/dl (14.0-18.0) L 11/18/21 04:35 ABG Carboxyhemoglobin 1.2 % (0.0-5.0) 11/18/21 04:35 ABG Methemoglobin 0.4 % (0.0-1.5) 11/18/21 04:35 Oxyhemoglobin 96.5 % (95.0-99.0) 11/18/21 04:35 FiO2 30 % 11/18/21 04:35 Sodium 138 mmol/L (137-145) 11/18/21 04:00 Potassium 3.6 mmol/L (3.6-5.0) 11/18/21 04:00 Chloride 99.6 mmol/L (98-107) 11/18/21 04:00 Carbon Dioxide 26 mmol/L (22-30) 11/18/21 04:00 Anion Gap 16 mmol/L 11/18/21 04:00 BUN 28 mg/dL (9-20) H 11/18/21 04:00 Creatinine 5.5 mg/dL (0.8-1.3) H 11/18/21 04:00 Estimated GFR 13 ml/min 11/18/21 04:00 BUN/Creatinine Ratio 5 % 11/18/21 04:00 Glucose 99 mg/dL (75-100) 11/18/21 04:00 POC Glucose 82 mg/dL (70-105) 11/18/21 05:09 Hemoglobin A1c 5.7 % (4-6) 11/12/21 06:55 Lactic Acid 0.90 mmol/L (0.7-2.0) 11/11/21 19:49 Calcium 8.4 mg/dL (8.4-10.2) 11/18/21 04:00 Phosphorus 3.20 mg/dL (2.5-4.5) 11/18/21 04:00 Magnesium 1.80 mg/dL (1.7-2.3) 11/18/21 04:00 Iron 24 ug/dL (49-181) L 11/11/21 23:29 TIBC 157 mcg/dL (250-450) L 11/11/21 23:29 Total Bilirubin 0.40 mg/dL (0.1-1.2) 11/11/21 19:49 AST 10 units/L (5-40) 11/11/21 19:49 ALT 7 units/L (7-56) 11/11/21 19:49 Alkaline Phosphatase 111 units/L (35-129) 11/11/21 19:49 Total Creatine Kinase 268 units/L (55-170) H 11/11/21 23:29 Troponin T 0.313 ng/mL (0.00-0.029) H* 11/12/21 22:30 NT-Pro-B Natriuret Pep 3674 pg/mL (0-900) H 11/12/21 Unknown Total Protein 9.1 g/dL (6.3-8.2) H 11/11/21 19:49 Albumin 3.0 g/dL (3.9-5) L 11/11/21 19:49 Albumin/Globulin Ratio 0.5 % 11/11/21 19:49 Triglycerides 79 mg/dL (2-149) 11/11/21 19:49 Cholesterol 146 mg/dL (50-199) 11/11/21 19:49 LDL Cholesterol Direct 85 mg/dL (50-130) 11/11/21 19:49 HDL Cholesterol 43 mg/dL (40-59) 11/11/21 19:49 Cholesterol/HDL Ratio 3.39 % 11/11/21 19:49 PTH Intact 1174 pg/mL (15-65) H 11/11/21 23:29 Urine Color Yellow (Yellow) 11/12/21 02:20 Urine Turbidity Cloudy (Clear) 11/12/21 02:20 Urine pH 5.0 (5.0-7.0) 11/12/21 02:20 Ur Specific [place] 1.013 (1.003-1.030) 11/12/21 02:20 Urine Protein >500 mg/dL (Negative) 11/12/21 02:20 Urine Glucose (UA) Neg mg/dL (Negative) 11/12/21 02:20 Urine Ketones Neg mg/dL (Negative) 11/12/21 02:20 Urine Blood Sm (Negative) 11/12/21 02:20 Urine Nitrite Neg (Negative) 11/12/21 02:20 Urine Bilirubin Neg (Negative) 11/12/21 02:20 Urine Urobilinogen < 2.0 mg/dL (<2.0) 11/12/21 02:20 Ur Leukocyte Esterase Tr (Negative) 11/12/21 02:20 Urine WBC (Auto) 12.0 /HPF (0.0-6.0) H 11/12/21 02:20 Urine RBC (Auto) 4.0 /HPF (0.0-6.0) 11/12/21 02:20 U Epithel Cells (Auto) 9.0 /HPF (0-13.0) 11/12/21 02:20 Urine Bacteria (Auto) 2+ /HPF (Negative) 11/12/21 02:20 Urine Mucus Few /HPF 11/12/21 02:20 Urine Yeast (Budding) 3+ /HPF 11/12/21 02:20 Urine Eosinophils None seen (None Seen) 11/12/21 02:20 Urine Creatinine 189.3 mg/dL (0.1-20.0) H 11/12/21 02:20 Urine Sodium 30 mmol/L 11/12/21 02:20 Hepatitis A IgM Ab Non-reactive (NonReactive) 11/12/21 04:45 Hep Bs Antigen Non-reactive (Negative) 11/12/21 04:45 Hep B Core IgM Ab Non-reactive (NonReactive) 11/12/21 04:45 Hepatitis C Antibody Non-reactive (NonReactive) 11/12/21 04:45 Iglesias/IV: Voiding Method Incontinent Active Medications - Current Medications Current Medications: Generic Name Dose Route Start Last Admin Trade Name Freq PRN Reason Stop Dose Admin Acetaminophen 650 mg 11/11/21 22:40 Acetaminophen 325 Mg Tab PO Q4H PRN Pain MILD(1-3)/Fever >100.5/SOTO Albuterol 2.5 mg 11/11/21 22:40 Albuterol 2.5 Mg/3 Ml Nebu IH Q3HRT PRN Shortness Of Breath Aspirin 325 mg 11/17/21 10:00 11/18/21 09:02 Aspirin 325 Mg Tab FEEDTUBE 325 mg QDAY BAO Administration Atorvastatin Calcium 40 mg 11/17/21 22:00 11/17/21 21:10 Atorvastatin 40 Mg Tab FEEDTUBE 40 mg QHS BAO Administration Dextrose 0 ml 11/11/21 23:03 Dextrose 10% *Hypoglycemia IV PRN PRN Hypoglycemia Docusate Sodium 100 mg 11/17/21 10:00 11/18/21 09:01 Docusate Sodium 100 Mg/10 Ml Oral Liqd FEEDTUBE 100 mg BID BAO Administration Famotidine 20 mg 11/17/21 10:00 11/18/21 09:02 Famotidine 20 Mg Tab FEEDTUBE 20 mg QDAY BAO Administration Fentanyl 50 mcg 11/11/21 20:56 11/12/21 00:12 Fentanyl 100 Mcg/2 Ml Inj IV 50 mcg Q10MIN PRN Administration ANALGESIA Heparin Sodium (Porcine) 5,000 unit 11/12/21 10:00 11/18/21 09:01 Heparin 5,000 Unit/1 Ml Vial SUB-Q 5,000 unit Q12HR [facility] Administration Hydrophilic Ointment 1 applic 11/11/21 20:56 Lip Therapy Vaseline TP Q2HR PRN Dry Lips Fentanyl Citrate 2,000 mcg in 100 mls @ 13.608 mls/hr 11/11/21 21:00 11/18/21 10:12 Fentanyl Drip Premix IV 2 mcg/kg/hr TITR BAO 27.216 mls/hr Administration Protocol 1 MCG/KG/HR NORepinephrine/NS 8 MG-250 ML 8 mg in 250 mls @ 3.75 mls/hr 11/11/21 23:00 11/18/21 10:13 Norepinephrine/Ns 8 Mg-250 Ml (Double Conc) IV 3 mcg/min TITRATE BAO 5.625 mls/hr Titration Protocol 2 MCG/MIN Propofol 1,000 mg in 100 mls @ 8.166 mls/hr 11/13/21 09:00 11/18/21 07:49 Diprivan 10 Mg/Ml IV 15 mcg/kg/min TITR BAO 24.498 mls/hr Administration Protocol 5 MCG/KG/MIN Sodium Chloride 100 mls @ 999 mls/hr 11/16/21 10:22 Nacl 0.9% IV LONG PRN Hypotension Insulin Human Lispro 0 unit 11/12/21 00:00 11/18/21 06:05 Insulin Lispro 100 Unit/Ml SUB-Q Not Given Q6HR [facility] Protocol Multi-Ingred Cream/Lotion/Oil/Oint 1 applic 11/11/21 20:56 Mineral Oil/Petrolatum, White Ophth Oint 3.5 Gm OU Q4HR PRN Dry Eye(s) Ondansetron HCl 4 mg 11/11/21 22:40 Ondansetron 4 Mg/2 Ml Inj IV Q8H PRN Nausea And Vomiting Senna 8.6 mg 11/17/21 10:00 11/18/21 09:02 Sennosides 8.6 Mg Tab FEEDTUBE 8.6 mg Q12H BAO Administration Sodium Chloride 10 ml 11/12/21 10:00 11/18/21 09:02 Sodium Chloride 0.9% 10 Ml Flush Syringe IV 10 ml BID BAO Administration Sodium Chloride 10 ml 11/11/21 22:40 Sodium Chloride 0.9% 10 Ml Flush Syringe IV PRN PRN LINE FLUSH Nutrition/Malnutrition Assess - Dietary Evaluation Nutrition/Malnutrition Findings: Nutrition Notes Start: 11/12/21 16:08 Freq: Status: Active Protocol: Document 11/14/21 15:39 TODD (Rec: 11/14/21 15:45 TODD [email or web address]) Nutrition Notes Initial or Follow up Reassessment Current Diagnosis Diabetes,Hypertension, Respiratory Failure Other Pertinent Diagnosis Acute renal failure (on HD), pneu Current Diet TF - Nepro at 50ml/hr Labs/Tests K 3 BUN 41 Cr 7 Mg 1.6 Pertinent Medications Mg sulfate x 1 dose, Levophed gtt, 20mEq KCl x 1 dose Height 5 ft 9 in Weight 272.2 kg Transfer Body Weight (kg) 72.72 BMI 88.6 Weight Status Morbidly Obese Subjective/Other Information Observed Nepro infusing at goal rate. Per RN, pt tolerating TF. Pt remains on vent support. Percent of energy/protein needs met: 99% energy 53% pro Burn Absent Trauma Absent #1 Nutrition Diagnosis Inadequate oral intake Diagnosis Progress(for reassessment Continues documentation) Is patient on ventilator? Yes Is Patient Ambulatory and/or Out of Bed No REE-([facility]-confined to bed) 4258.860 Kcal/Kg value to use for calculation 8 Approximate Energy Requirements Using 2178 kcal/Kg Additional Notes Pro needs up to 2.5g/kg IBW: 182g/day Fluid needs 1-1.5L/day Nutrition Intervention Nutrition Support: Continue Nepro at 50ml/hr with 200ml water flush q4h. Kcal 2,160 Protein (gm) 97 Carbohydrates (gm) 193 Fat (gm) 115 Fluid (mL) 872 Fiber (gm) 15 Goal #1 TF tolerance Goal #2 TF to meet at least 75% energy and pro needs Follow-Up By: 11/21/21 Additional Comments F/U: stable TF, vent status, wt <AMADO YODER Amarilis - Last Filed: 11/18/21 17:34> Assessment and Plan Assessment and plan: I saw and evaluated the patient. I agree with the findings and the plan of care as documented in the Nurse Practitioner's~note, with the following corrections and additions. Hospitalist Physical - Constitutional Vitals: Temp Pulse Resp BP Pulse Ox 97.7 F 74 20 108/58 97 11/18/21 16:00 11/18/21 17:15 11/18/21 17:15 11/18/21 17:15 11/18/21 17:15 HEART Score - HEART Score Troponin: Troponin T 0.313 ng/mL (0.00-0.029) H* 11/12/21 22:30 Results - Labs CBC & Chem 7: 11/18/21 04:00 11/18/21 04:00 Labs: Laboratory Last Values WBC 10.9 K/mm3 (4.5-11.0) 11/18/21 04:00 RBC 2.88 M/mm3 (3.65-5.03) L 11/18/21 04:00 Hgb 7.8 gm/dl (11.8-15.2) L 11/18/21 04:00 Hct 25.3 % (35.5-45.6) L 11/18/21 04:00 MCV 88 fl (84-94) 11/18/21 04:00 MCH 27 pg (28-32) L 11/18/21 04:00 MCHC 31 % (32-34) L 11/18/21 04:00 RDW 18.7 % (13.2-15.2) H 11/18/21 04:00 Plt Count 229 K/mm3 (140-440) 11/18/21 04:00 Lymph % (Auto) 10.0 % (13.4-35.0) L 11/11/21 19:49 [place] % (Auto) 8.8 % (0.0-7.3) H 11/11/21 19:49 Eos % (Auto) 0.9 % (0.0-4.3) 11/11/21 19:49 Baso % (Auto) 0.5 % (0.0-1.8) 11/11/21 19:49 Lymph # (Auto) 1.1 K/mm3 (1.2-5.4) L 11/11/21 19:49 [place] # (Auto) 1.0 K/mm3 (0.0-0.8) H 11/11/21 19:49 Eos # (Auto) 0.1 K/mm3 (0.0-0.4) 11/11/21 19:49 Baso # (Auto) 0.1 K/mm3 (0.0-0.1) 11/11/21 19:49 Add Manual Diff Complete 11/12/21 06:55 Total Counted 100 11/12/21 06:55 Seg Neutrophils % Supervisor Border Department 11/12/21 06:55 Seg Neuts % (Manual) 89.0 % (40.0-70.0) H 11/12/21 06:55 Band Neutrophils % 5.0 % 11/12/21 06:55 Lymphocytes % (Manual) 0 % (13.4-35.0) L 11/12/21 06:55 Reactive Lymphs % (Man) 0 % 11/12/21 06:55 Monocytes % (Manual) 3.0 % (0.0-7.3) 11/12/21 06:55 Eosinophils % (Manual) 0 % (0.0-4.3) 11/12/21 06:55 Basophils % (Manual) 0 % (0.0-1.8) 11/12/21 06:55 Metamyelocytes % 3.0 % 11/12/21 06:55 Myelocytes % 0 % 11/12/21 06:55 Promyelocytes % 0 % 11/12/21 06:55 Blast Cells % 0 % 11/12/21 06:55 Nucleated RBC % Not Reportable 11/12/21 06:55 Seg Neutrophils # 9.2 K/mm3 (1.8-7.7) H 11/11/21 19:49 Seg Neutrophils # Man 18.2 K/mm3 (1.8-7.7) H 11/12/21 06:55 Band Neutrophils # 1.0 K/mm3 11/12/21 06:55 Lymphocytes # (Manual) 0.0 K/mm3 (1.2-5.4) L 11/12/21 06:55 Abs React Lymphs (Man) 0.0 K/mm3 11/12/21 06:55 Monocytes # (Manual) 0.6 K/mm3 (0.0-0.8) 11/12/21 06:55 Eosinophils # (Manual) 0.0 K/mm3 (0.0-0.4) 11/12/21 06:55 Basophils # (Manual) 0.0 K/mm3 (0.0-0.1) 11/12/21 06:55 Metamyelocytes # 0.6 K/mm3 11/12/21 06:55 Myelocytes # 0.0 K/mm3 11/12/21 06:55 Promyelocytes # 0.0 K/mm3 11/12/21 06:55 Blast Cells # 0.0 K/mm3 11/12/21 06:55 WBC Morphology Not Reportable 11/12/21 06:55 Hypersegmented Neuts Not Reportable 11/12/21 06:55 Hyposegmented Neuts Not Reportable 11/12/21 06:55 Hypogranular Neuts Not Reportable 11/12/21 06:55 Smudge Cells Not Reportable 11/12/21 06:55 Toxic Granulation 1+ 11/12/21 06:55 Toxic Vacuolation Not Reportable 11/12/21 06:55 Dohle Bodies Not Reportable 11/12/21 06:55 Pelger-Huet Anomaly Not Reportable 11/12/21 06:55 Lissa Rods Not Reportable 11/12/21 06:55 Platelet Estimate Consistent w auto 11/12/21 06:55 Clumped Platelets Not Reportable 11/12/21 06:55 Plt Clumps, EDTA Not Reportable 11/12/21 06:55 Large Platelets Not Reportable 11/12/21 06:55 Giant Platelets Not Reportable 11/12/21 06:55 Platelet Satelliting Not Reportable 11/12/21 06:55 Plt Morphology Comment Not Reportable 11/12/21 06:55 RBC Morphology Normal 11/12/21 06:55 Dimorphic RBCs Not Reportable 11/12/21 06:55 Polychromasia Not Reportable 11/12/21 06:55 Hypochromasia Not Reportable 11/12/21 06:55 Poikilocytosis Not Reportable 11/12/21 06:55 Anisocytosis Not Reportable 11/12/21 06:55 Microcytosis Not Reportable 11/12/21 06:55 Macrocytosis Not Reportable 11/12/21 06:55 Spherocytes Not Reportable 11/12/21 06:55 Pappenheimer Bodies Not Reportable 11/12/21 06:55 Sickle Cells Not Reportable 11/12/21 06:55 Target Cells Not Reportable 11/12/21 06:55 Tear Drop Cells Not Reportable 11/12/21 06:55 Ovalocytes Not Reportable 11/12/21 06:55 Helmet Cells Not Reportable 11/12/21 06:55 Shea-Beebe Bodies Not Reportable 11/12/21 06:55 Caret Rings Not Reportable 11/12/21 06:55 [place] Cells Not Reportable 11/12/21 06:55 Bite Cells Not Reportable 11/12/21 06:55 Crenated Cell Not Reportable 11/12/21 06:55 Elliptocytes Not Reportable 11/12/21 06:55 Acanthocytes (Spur) Not Reportable 11/12/21 06:55 Rouleaux Not Reportable 11/12/21 06:55 Hemoglobin C Crystals Not Reportable 11/12/21 06:55 Schistocytes Not Reportable 11/12/21 06:55 Malaria parasites Not Reportable 11/12/21 06:55 Nam Bodies Not Reportable 11/12/21 06:55 Hem Pathologist Commnt No 11/12/21 06:55 ABG pH 7.467 pH Units (7.350-7.450) H 11/18/21 04:35 ABG pCO2 37.1 mm Hg 11/18/21 04:35 ABG pO2 110.0 mm Hg (80.0-90.0) H 11/18/21 04:35 ABG HCO3 26.2 mmol/L (20.0-26.0) H 11/18/21 04:35 ABG O2 Saturation 98.1 % (95.0-99.0) 11/18/21 04:35 ABG O2 Content 11.3 (0.0-44) 11/18/21 04:35 ABG Base Excess 2.4 mmol/L (-2.0-3.0) 11/18/21 04:35 ABG Hemoglobin 8.1 gm/dl (14.0-18.0) L 11/18/21 04:35 ABG Carboxyhemoglobin 1.2 % (0.0-5.0) 11/18/21 04:35 ABG Methemoglobin 0.4 % (0.0-1.5) 11/18/21 04:35 Oxyhemoglobin 96.5 % (95.0-99.0) 11/18/21 04:35 FiO2 30 % 11/18/21 04:35 Sodium 138 mmol/L (137-145) 11/18/21 04:00 Potassium 3.6 mmol/L (3.6-5.0) 11/18/21 04:00 Chloride 99.6 mmol/L (98-107) 11/18/21 04:00 Carbon Dioxide 26 mmol/L (22-30) 11/18/21 04:00 Anion Gap 16 mmol/L 11/18/21 04:00 BUN 28 mg/dL (9-20) H 11/18/21 04:00 Creatinine 5.5 mg/dL (0.8-1.3) H 11/18/21 04:00 Estimated GFR 13 ml/min 11/18/21 04:00 BUN/Creatinine Ratio 5 % 11/18/21 04:00 Glucose 99 mg/dL (75-100) 11/18/21 04:00 POC Glucose 131 mg/dL (70-105) H 11/18/21 11:50 Hemoglobin A1c 5.7 % (4-6) 11/12/21 06:55 Lactic Acid 0.90 mmol/L (0.7-2.0) 11/11/21 19:49 Calcium 8.4 mg/dL (8.4-10.2) 11/18/21 04:00 Phosphorus 3.20 mg/dL (2.5-4.5) 11/18/21 04:00 Magnesium 1.80 mg/dL (1.7-2.3) 11/18/21 04:00 Iron 24 ug/dL (49-181) L 11/11/21 23:29 TIBC 157 mcg/dL (250-450) L 11/11/21 23:29 Total Bilirubin 0.40 mg/dL (0.1-1.2) 11/11/21 19:49 AST 10 units/L (5-40) 11/11/21 19:49 ALT 7 units/L (7-56) 11/11/21 19:49 Alkaline Phosphatase 111 units/L (35-129) 11/11/21 19:49 Total Creatine Kinase 268 units/L (55-170) H 11/11/21 23:29 Troponin T 0.313 ng/mL (0.00-0.029) H* 11/12/21 22:30 NT-Pro-B Natriuret Pep 3674 pg/mL (0-900) H 11/12/21 Unknown Total Protein 9.1 g/dL (6.3-8.2) H 11/11/21 19:49 Albumin 3.0 g/dL (3.9-5) L 11/11/21 19:49 Albumin/Globulin Ratio 0.5 % 11/11/21 19:49 Triglycerides 79 mg/dL (2-149) 11/11/21 19:49 Cholesterol 146 mg/dL (50-199) 11/11/21 19:49 LDL Cholesterol Direct 85 mg/dL (50-130) 11/11/21 19:49 HDL Cholesterol 43 mg/dL (40-59) 11/11/21 19:49 Cholesterol/HDL Ratio 3.39 % 11/11/21 19:49 PTH Intact 1174 pg/mL (15-65) H 11/11/21 23:29 Urine Color Yellow (Yellow) 11/12/21 02:20 Urine Turbidity Cloudy (Clear) 11/12/21 02:20 Urine pH 5.0 (5.0-7.0) 11/12/21 02:20 Ur Specific [place] 1.013 (1.003-1.030) 11/12/21 02:20 Urine Protein >500 mg/dL (Negative) 11/12/21 02:20 Urine Glucose (UA) Neg mg/dL (Negative) 11/12/21 02:20 Urine Ketones Neg mg/dL (Negative) 11/12/21 02:20 Urine Blood Sm (Negative) 11/12/21 02:20 Urine Nitrite Neg (Negative) 11/12/21 02:20 Urine Bilirubin Neg (Negative) 11/12/21 02:20 Urine Urobilinogen < 2.0 mg/dL (<2.0) 11/12/21 02:20 Ur Leukocyte Esterase Tr (Negative) 11/12/21 02:20 Urine WBC (Auto) 12.0 /HPF (0.0-6.0) H 11/12/21 02:20 Urine RBC (Auto) 4.0 /HPF (0.0-6.0) 11/12/21 02:20 U Epithel Cells (Auto) 9.0 /HPF (0-13.0) 11/12/21 02:20 Urine Bacteria (Auto) 2+ /HPF (Negative) 11/12/21 02:20 Urine Mucus Few /HPF 11/12/21 02:20 Urine Yeast (Budding) 3+ /HPF 11/12/21 02:20 Urine Eosinophils None seen (None Seen) 11/12/21 02:20 Urine Creatinine 189.3 mg/dL (0.1-20.0) H 11/12/21 02:20 Urine Sodium 30 mmol/L 11/12/21 02:20 Hepatitis A IgM Ab Non-reactive (NonReactive) 11/12/21 04:45 Hep Bs Antigen Non-reactive (Negative) 11/12/21 04:45 Hep B Core IgM Ab Non-reactive (NonReactive) 11/12/21 04:45 Hepatitis C Antibody Non-reactive (NonReactive) 11/12/21 04:45 Iglesias/IV: Voiding Method Incontinent Active Medications - Current Medications Current Medications: Generic Name Dose Route Start Last Admin Trade Name Freq PRN Reason Stop Dose Admin Acetaminophen 650 mg 11/11/21 22:40 Acetaminophen 325 Mg Tab PO Q4H PRN Pain MILD(1-3)/Fever >100.5/SOTO Albuterol 2.5 mg 11/11/21 22:40 Albuterol 2.5 Mg/3 Ml Nebu IH Q3HRT PRN Shortness Of Breath Aspirin 325 mg 11/17/21 10:00 11/18/21 09:02 Aspirin 325 Mg Tab FEEDTUBE 325 mg QDAY BAO Administration Atorvastatin Calcium 40 mg 11/17/21 22:00 11/17/21 21:10 Atorvastatin 40 Mg Tab FEEDTUBE 40 mg QHS BAO Administration Dextrose 50 ml 11/18/21 13:00 Dextrose 50% In Water (25gm) 50 Ml Syringe IV Q30MIN PRN Hypoglycemia Protocol Docusate Sodium 100 mg 11/17/21 10:00 11/18/21 09:01 Docusate Sodium 100 Mg/10 Ml Oral Liqd FEEDTUBE 100 mg BID BAO Administration Famotidine 20 mg 11/17/21 10:00 11/18/21 09:02 Famotidine 20 Mg Tab FEEDTUBE 20 mg QDAY [facility] Administration Fentanyl 50 mcg 11/11/21 20:56 11/12/21 00:12 Fentanyl 100 Mcg/2 Ml Inj IV 50 mcg Q10MIN PRN Administration ANALGESIA Heparin Sodium (Porcine) 5,000 unit 11/12/21 10:00 11/18/21 09:01 Heparin 5,000 Unit/1 Ml Vial SUB-Q 5,000 unit Q12HR [facility] Administration Hydrophilic Ointment 1 applic 11/11/21 20:56 Lip Therapy Vaseline TP Q2HR PRN Dry Lips Fentanyl Citrate 2,000 mcg in 100 mls @ 13.608 mls/hr 11/11/21 21:00 11/18/21 14:13 Fentanyl Drip Premix IV 2 mcg/kg/hr TITR BAO 27.216 mls/hr Administration Protocol 1 MCG/KG/HR NORepinephrine/NS 8 MG-250 ML 8 mg in 250 mls @ 3.75 mls/hr 11/11/21 23:00 11/18/21 14:48 Norepinephrine/Ns 8 Mg-250 Ml (Double Conc) IV 2 mcg/min TITRATE BAO 3.75 mls/hr Titration Protocol 2 MCG/MIN Propofol 1,000 mg in 100 mls @ 8.166 mls/hr 11/13/21 09:00 11/18/21 16:31 Diprivan 10 Mg/Ml IV 15 mcg/kg/min TITR BAO 24.498 mls/hr Administration Protocol 5 MCG/KG/MIN Sodium Chloride 100 mls @ 999 mls/hr 11/16/21 10:22 Nacl 0.9% IV LONG PRN Hypotension Insulin Human Lispro 0 unit 11/12/21 00:00 11/18/21 11:51 Insulin Lispro 100 Unit/Ml SUB-Q Not Given Q6HR [facility] Protocol Multi-Ingred Cream/Lotion/Oil/Oint 1 applic 11/11/21 20:56 Mineral Oil/Petrolatum, White Ophth Oint 3.5 Gm OU Q4HR PRN Dry Eye(s) Ondansetron HCl 4 mg 11/11/21 22:40 Ondansetron 4 Mg/2 Ml Inj IV Q8H PRN Nausea And Vomiting Senna 8.6 mg 11/17/21 10:00 11/18/21 09:02 Sennosides 8.6 Mg Tab FEEDTUBE 8.6 mg Q12H BAO Administration Sodium Chloride 10 ml 11/12/21 10:00 11/18/21 09:02 Sodium Chloride 0.9% 10 Ml Flush Syringe IV 10 ml BID BAO Administration Sodium Chloride 10 ml 11/11/21 22:40 Sodium Chloride 0.9% 10 Ml Flush Syringe IV PRN PRN LINE FLUSH Nutrition/Malnutrition Assess - Dietary Evaluation Nutrition/Malnutrition Findings: Nutrition Notes Start: 11/12/21 16:08 Freq: Status: Active Protocol: Document 11/14/21 15:39 TODD (Rec: 11/14/21 15:45 TODD [id number]) Nutrition Notes Initial or Follow up Reassessment Current Diagnosis Diabetes,Hypertension, Respiratory Failure Other Pertinent Diagnosis Acute renal failure (on HD), pneu Current Diet TF - Nepro at 50ml/hr Labs/Tests K 3 BUN 41 Cr 7 Mg 1.6 Pertinent Medications Mg sulfate x 1 dose, Levophed gtt, 20mEq KCl x 1 dose Height 5 ft 9 in Weight 272.2 kg Transfer Body Weight (kg) 72.72 BMI 88.6 Weight Status Morbidly Obese Subjective/Other Information Observed Nepro infusing at goal rate. Per RN, pt tolerating TF. Pt remains on vent support. Percent of energy/protein needs met: 99% energy 53% pro Burn Absent Trauma Absent #1 Nutrition Diagnosis Inadequate oral intake Diagnosis Progress(for reassessment Continues documentation) Is patient on ventilator? Yes Is Patient Ambulatory and/or Out of Bed No REE-([facility]-confined to bed) 4258.860 Kcal/Kg value to use for calculation 8 Approximate Energy Requirements Using 2178 kcal/Kg Additional Notes Pro needs up to 2.5g/kg IBW: 182g/day Fluid needs 1-1.5L/day Nutrition Intervention Nutrition Support: Continue Nepro at 50ml/hr with 200ml water flush q4h. Kcal 2,160 Protein (gm) 97 Carbohydrates (gm) 193 Fat (gm) 115 Fluid (mL) 872 Fiber (gm) 15 Goal #1 TF tolerance Goal #2 TF to meet at least 75% energy and pro needs Follow-Up By: 11/21/21 Additional Comments F/U: stable TF, vent status, wt
[2021-11-18] MEDS ORDERED: DEXTROSE 50% IN WATER (25GM) 50 ML SYRINGE IV PRN (13:00)
--- NOTE | 2021-11-18 15:42 | Progress Note ---
Assessment and Plan Patient is a 56-year-old morbidly obese bedbound male who was admitted with acute respiratory failure and acute renal failure on 11/12/21. Cardiology initially consulted for elevated troponin on admission. Assessment: Acute Encephalopathy Acute Respiratory Failure Acute Renal Failure (s/p Vascath placement & emergent HD 11/11)- nephrology following Hyperkalemia (resolved) Anemia S/p Shock H/o HTN DM Morbid Obesity/Bedbound ?OHS/AYAN Chronic Lymphedema NSTEMI- likely type II LA in the setting of acute respiratory failure/acute renal failure/shock. Echocardiogram- 11/11/21: Exam will be followed up by limited Optison contrast study on 11/14/2021. Left ventricle systolic function is normal. LVEF is > 70%. Mild concentric left ventricular hypertrophy. There is no pericardial effusion. Limited echo 11/14/2021: LV: The left ventricular systolic function is normal. The left ventricular ejection fraction is within the normal range. LVEF is 55 to 60%. No left ventricle thrombus noted on the study Plan: Ischemic evaluation remains unattainable at this time due to patient weight limitations. Electrolyte and volume management per Nephrology Continue present management per Primary teams. Cardiac status otherwise stable we will see as needed Patient seen in conjunction with Dr. Ma, who agrees with the assessment and plan of care. 30 minutes of critical care time spent in care coordination of patient - Patient Problems (1) Acute renal failure (ARF) Current Visit: No Status: Acute Qualifiers: Qualified Code(s): N17.9 - Acute kidney failure, unspecified (2) Acute respiratory failure Current Visit: Yes Status: Acute Qualifiers: Respiratory failure complication: hypoxia Qualified Code(s): J96.01 - Acute respiratory failure with hypoxia (3) Hyperkalemia Current Visit: Yes Status: Acute (4) Hypotension Current Visit: Yes Status: Acute Qualifiers: Hypotension type: unspecified hypotension type Qualified Code(s): I95.9 - Hypotension, unspecified (5) Obesity Current Visit: Yes Status: Acute (6) Type 2 LA (myocardial infarction) Current Visit: Yes Status: Acute Subjective Date of service: 11/18/21 Principal diagnosis: Acute respiratory failure, Interval history: Patient remains intubated and awake Patient sinus upper 50s-60s on monitor Objective Vital Signs Temp Pulse Pulse Resp BP Pulse Ox Pulse Ox 11/18/21 15:00 80 20 108/69 97 11/18/21 14:45 73 20 105/58 97 11/18/21 14:30 68 20 124/67 96 11/18/21 14:15 67 20 118/70 95 11/18/21 14:00 61 20 115/68 94 11/18/21 13:45 98.4 F 63 18 115/68 95 98 11/18/21 13:30 62 20 94/53 95 11/18/21 13:15 62 20 101/56 96 11/18/21 13:00 60 20 101/58 98 11/18/21 12:45 61 20 104/56 98 11/18/21 12:30 60 20 102/57 98 11/18/21 12:15 59 L 20 102/57 98 11/18/21 12:00 98.2 F 63 56 L 20 113/62 98 11/18/21 11:45 65 20 126/76 98 11/18/21 11:30 77 20 98/54 98 11/18/21 11:17 53 L 95/51 99 11/18/21 11:15 52 L 20 95/51 98 11/18/21 11:00 52 L 20 100/54 99 11/18/21 10:45 53 L 20 113/70 100 11/18/21 10:30 98.2 F 53 L 18 118/70 100 98 11/18/21 10:15 53 L 20 117/72 100 11/18/21 10:00 56 L 20 100/65 100 11/18/21 09:45 56 L 20 102/59 99 11/18/21 09:30 58 L 20 100/55 99 11/18/21 09:15 57 L 20 98/56 99 11/18/21 09:00 57 L 20 103/61 100 11/18/21 08:45 58 L 20 109/62 100 11/18/21 08:30 58 L 20 106/60 100 11/18/21 08:15 56 L 20 107/65 100 11/18/21 08:00 96.7 F L 58 L 56 L 20 104/58 98 11/18/21 07:45 58 L 20 102/61 99 11/18/21 07:33 58 L 108/68 100 11/18/21 07:30 60 20 108/68 100 11/18/21 07:15 60 20 109/63 100 11/18/21 07:00 62 20 113/63 100 11/18/21 06:45 62 20 112/67 100 11/18/21 06:30 63 21 128/77 100 11/18/21 06:15 65 20 122/71 99 11/18/21 06:00 62 20 121/81 99 11/18/21 05:45 58 L 20 105/62 99 11/18/21 05:30 55 L 20 96/55 100 11/18/21 05:15 53 L 20 92/51 100 11/18/21 05:00 53 L 20 93/53 100 11/18/21 04:45 59 L 22 91/48 99 11/18/21 04:36 53 L 93/53 100 11/18/21 04:31 57 L 22 102/59 100 11/18/21 04:15 64 118/65 98 11/18/21 04:01 58 L 22 118/65 97 11/18/21 04:00 55 L 22 98 11/18/21 03:45 62 22 118/65 97 11/18/21 03:30 71 22 148/89 97 11/18/21 03:18 98 F 11/18/21 03:15 68 22 139/84 97 11/18/21 03:00 61 13 126/74 98 11/18/21 02:45 66 22 130/78 98 11/18/21 02:30 60 22 117/69 98 11/18/21 02:15 55 L 22 116/75 98 11/18/21 02:00 53 L 22 101/55 98 11/18/21 01:45 55 L 22 98/52 98 11/18/21 01:30 55 L 22 98/51 97 11/18/21 01:15 56 L 22 96/53 97 11/18/21 01:00 59 L 22 103/57 98 11/18/21 00:45 61 22 99/51 94 11/18/21 00:30 65 22 110/54 95 11/18/21 00:15 77 20 142/79 97 11/18/21 00:06 80 120/69 96 11/18/21 00:00 64 64 22 120/69 96 11/17/21 23:45 67 22 117/75 95 11/17/21 23:30 62 22 121/70 96 11/17/21 23:21 98.8 F 11/17/21 23:15 62 22 117/64 95 11/17/21 23:00 65 22 119/68 95 11/17/21 22:45 64 22 114/63 96 11/17/21 22:30 65 22 118/67 95 11/17/21 22:15 64 22 104/54 95 11/17/21 22:00 70 21 114/68 95 11/17/21 21:45 69 22 123/63 95 11/17/21 21:30 76 22 132/74 95 11/17/21 21:15 77 16 140/79 94 11/17/21 21:00 68 22 140/81 97 11/17/21 20:45 59 L 22 119/71 98 11/17/21 20:30 56 L 22 128/79 99 11/17/21 20:22 57 L 108/62 100 11/17/21 20:15 53 L 22 108/62 99 11/17/21 20:07 53 L 22 104/59 98 11/17/21 20:00 97.5 F L 54 L 54 L 22 104/59 98 11/17/21 19:45 55 L 22 107/59 99 11/17/21 19:30 55 L 22 95/48 98 11/17/21 19:15 57 L 22 97/52 99 11/17/21 19:00 56 L 22 96/50 97 11/17/21 18:45 55 L 22 100/52 98 11/17/21 18:30 57 L 22 102/50 98 11/17/21 18:15 54 L 22 100/54 99 11/17/21 18:00 54 L 22 101/58 98 11/17/21 17:45 56 L 22 100/57 99 11/17/21 17:32 98.5 F 11/17/21 17:30 54 L 22 95/50 98 11/17/21 17:15 56 L 22 103/58 99 11/17/21 17:00 54 L 22 92/40 96 11/17/21 16:45 58 L 22 101/44 96 11/17/21 16:30 62 22 111/60 97 11/17/21 16:15 63 22 122/61 95 03/31/22 16:01 70 19 121/64 96 11/17/21 15:45 65 22 152/83 97 - Physical Examination General: No Apparent Distress HEENT: Positive: Normocephaly Neck: Positive: trachea midline. Negative: JVD/HJR Cardiac: Positive: Reg Rate and Rhythm Lungs: Positive: Ventilated Respirations Neuro: Positive: Other (intubated but awake and alert. Following commands. ) Abdomen: Positive: Soft, Active Bowel Sounds Skin: Negative: Rash Extremities: Present: edema (Chronic lymphedema bilateral lower extremities) - Labs and Meds CBC 11/18/21 Range/Units 04:00 WBC 10.9 (4.5-11.0) K/mm3 RBC 2.88 L (3.65-5.03) M/mm3 Hgb 7.8 L (11.8-15.2) gm/dl Hct 25.3 L (35.5-45.6) % Plt Count 229 (140-440) K/mm3 Comprehensive Metabolic Panel 11/18/21 Range/Units 04:00 Sodium 138 (137-145) mmol/L Potassium 3.6 (3.6-5.0) mmol/L Chloride 99.6 (98-107) mmol/L Carbon Dioxide 26 (22-30) mmol/L BUN 28 H (9-20) mg/dL Creatinine 5.5 H (0.8-1.3) mg/dL Glucose 99 (75-100) mg/dL Calcium 8.4 (8.4-10.2) mg/dL - Imaging and Cardiology EKG: report reviewed, image reviewed Echo: report reviewed - Telemetry EKG Rhythm: Sinus Rhythm - EKG Sinus rhythms and dysrhythmias: sinus rhythm - Allied health notes Allied health notes reviewed: nursing
[2021-11-18] MEDS: NORepinephrine/NS 8 MG-250 ML 8 MG/250 ML INFUS..BTL IV SCH (19:35)
[2021-11-19] MEDS: fentaNYL DRIP Premix 2,000 MCG/100 ML BAG IV SCH ×5 (03:36→22:19)
[2021-11-19] MEDS: INSULIN LISPRO 100 UNIT/ML SUB-Q SCH ×4 (03:42→17:24)
[2021-11-19 05:11] LABS: Calcium 8.9 mg/dL (8.4-10.2)
[2021-11-19] MEDS: ASPIRIN 325 MG TAB FEEDTUBE SCH (09:35)
[2021-11-19] MEDS: HEPARIN 5,000 UNIT/1 ML VIAL SUB-Q SCH ×2 (09:35→21:44)
[2021-11-19] MEDS: FAMOTIDINE 20 MG TAB FEEDTUBE SCH (09:35)
[2021-11-19] MEDS: SENNOSIDES 8.6 MG TAB FEEDTUBE SCH ×2 (09:35→21:44)
[2021-11-19] MEDS: DOCUSATE SODIUM 100 MG/10 ML ORAL LIQD FEEDTUBE SCH ×2 (09:35→21:44)
--- NOTE | 2021-11-19 10:56 | Progress Note ---
Assessment and Plan 56 y/o morbidly obese male with acute respiratory failure, requiring intubation and now in acute renal failure and in need of HD 11/19/2021: No significant change remained intubated on mechanical ventilator with good stable vital signs. We will continue with the current vent settings. Await tracheostomy in the future. Long-term prognosis is guarded. 11/18/21: Await Gen Surg comments as they were checking on OR supplies. If not able to, will start working on transfer as patient will need trach given current clinical state. HD per renal. Wean pressors as tolerated. Guarded to poor prognosis. 11/17/21: Follow up Gen Surge eval, they are checking to see the materials they have in OR. Reviewed neck ultrasound, per their read trachea is only about an 1inch away from the skin. Shocking given his neck size but given the difficulty in intubation and his entrance being anterior, this makes sense. Will defer to surgery call but have no problem with calling for transfer as well. Wean Pressors as tolerated. HD per renal. Continue sedation for RASS of 0. Guarded to poor prognosis. 11/16/21: Given patient body habitus, difficult airway and likely no improvement in current clinical state, will need trach. However given his neck size, I would suggest this be done by ENT as I am not even sure that the [place] XLT is long enough. Ok to consult surgery here but I suggest seeking transfer to a tertiary care facility with ENT to attempt this. Also suggest obtaining neck CT to further evaluate total neck anatomy that way if we need to send this over prior to acceptance we can. Guarded prognosis but mental status is intact. HD per renal. 11/15/21: stop sedation. Attempt PSV. Bipap PRN and QHS. Hopeful extubation today. HD per renal. 11/14/21: Wean PEEP again today and attempt PSV trial. If passes will attempt extubation. HD per renal 11/13/21: HD per renal. No PSV trials today. Wean PEEP after HD. Guarded prognosis. Critical care time 31-minute. Subjective Date of service: 11/19/21 Principal diagnosis: Acute respiratory failure, Interval history: Patient remains intubated on mechanical ventilator. No significant change. On hemodialysis per renal. Awaiting trach. Objective Vital Signs - 12hr 11/18/21 11/18/21 11/18/21 23:00 23:36 23:53 Temperature Pulse Rate 64 93 H 89 Pulse Rate [ From Monitor] Respiratory 20 Rate Blood Pressure 111/65 131/75 O2 Sat by Pulse 98 96 Oximetry 11/19/21 11/19/21 11/19/21 00:00 00:04 01:00 Temperature 98.5 F Pulse Rate 87 86 84 Pulse Rate [ 76 From Monitor] Respiratory 20 20 20 Rate Blood Pressure 144/84 144/84 99/63 O2 Sat by Pulse 94 94 94 Oximetry 11/19/21 11/19/21 11/19/21 02:00 03:00 03:20 Temperature 97.7 F Pulse Rate 88 99 H Pulse Rate [ From Monitor] Respiratory 20 22 Rate Blood Pressure 129/70 130/75 O2 Sat by Pulse 92 63 L Oximetry 11/19/21 11/19/21 11/19/21 04:00 04:10 05:00 Temperature 98 F Pulse Rate 79 85 76 Pulse Rate [ 76 From Monitor] Respiratory 20 20 Rate Blood Pressure 124/70 124/70 104/52 O2 Sat by Pulse 94 92 94 Oximetry 11/19/21 11/19/21 11/19/21 06:00 07:00 07:31 Temperature Pulse Rate 91 H 79 81 Pulse Rate [ From Monitor] Respiratory 20 20 Rate Blood Pressure 124/80 111/60 121/68 O2 Sat by Pulse 94 95 96 Oximetry 11/19/21 11/19/21 11/19/21 07:45 08:00 09:00 Temperature 97.4 F L 97.4 F L Pulse Rate 78 77 Pulse Rate [ 76 From Monitor] Respiratory 20 20 Rate Blood Pressure 110/59 100/49 O2 Sat by Pulse 96 95 Oximetry 11/19/21 10:00 Temperature Pulse Rate 72 Pulse Rate [ From Monitor] Respiratory 20 Rate Blood Pressure 91/50 O2 Sat by Pulse 96 Oximetry Constitutional: comatose Eyes: non-icteric ENT: other (orally intubated and sedated) Neck: supple, other (large in circumference) Effort: normal Ascultation: Bilateral: diminished breath sounds Cardiovascular: regular rate and rhythm Gastrointestinal: normoactive bowel sounds Extremities: edema, anasarca Neurologic: unable to assess CBC and BMP: 11/18/21 04:00 11/19/21 04:00 ABG, PT/INR, D-dimer: ABG ABG pH 7.467 pH Units (7.350-7.450) H 11/18/21 04:35 ABG pCO2 37.1 mm Hg 11/18/21 04:35 ABG pO2 110.0 mm Hg (80.0-90.0) H 11/18/21 04:35 ABG O2 Saturation 98.1 % (95.0-99.0) 11/18/21 04:35 Abnormal lab findings: Abnormal Labs 11/11/21 11/11/21 11/11/21 19:49 19:49 23:29 WBC 11.5 H RBC Hgb 10.1 L Hct 34.8 L MCH 27 L MCHC 29 L RDW 20.1 H Lymph % (Auto) 10.0 L [place] % (Auto) 8.8 H Lymph # (Auto) 1.1 L [place] # (Auto) 1.0 H Seg Neutrophils % 79.8 H Seg Neuts % (Manual) Lymphocytes % (Manual) Seg Neutrophils # 9.2 H Seg Neutrophils # Man Lymphocytes # (Manual) ABG pH ABG pO2 ABG HCO3 ABG O2 Saturation ABG Base Excess ABG Hemoglobin Sodium Potassium 7.6 H* Chloride 107.8 H Carbon Dioxide 13 L BUN 107 H Creatinine 13.8 H Glucose POC Glucose Calcium 7.5 L Phosphorus Magnesium Iron TIBC Total Creatine Kinase 268 H Troponin T 0.324 H* NT-Pro-B Natriuret Pep Total Protein 9.1 H Albumin 3.0 L PTH Intact Urine WBC (Auto) Urine Creatinine 11/11/21 11/11/21 11/12/21 23:29 23:29 02:20 WBC RBC Hgb Hct MCH MCHC RDW Lymph % (Auto) [place] % (Auto) Lymph # (Auto) [place] # (Auto) Seg Neutrophils % Seg Neuts % (Manual) Lymphocytes % (Manual) Seg Neutrophils # Seg Neutrophils # Man Lymphocytes # (Manual) ABG pH ABG pO2 ABG HCO3 ABG O2 Saturation ABG Base Excess ABG Hemoglobin Sodium Potassium Chloride Carbon Dioxide BUN Creatinine Glucose POC Glucose Calcium Phosphorus Magnesium Iron 24 L TIBC 157 L Total Creatine Kinase Troponin T NT-Pro-B Natriuret Pep Total Protein Albumin PTH Intact 1174 H Urine WBC (Auto) Urine Creatinine 189.3 H 11/12/21 11/12/21 11/12/21 02:20 02:28 06:55 WBC 20.5 H RBC 3.54 L Hgb 9.4 L Hct 32.3 L MCH 27 L MCHC 29 L RDW 20.0 H Lymph % (Auto) [place] % (Auto) Lymph # (Auto) [place] # (Auto) Seg Neutrophils % Seg Neuts % (Manual) 89.0 H Lymphocytes % (Manual) 0 L Seg Neutrophils # Seg Neutrophils # Man 18.2 H Lymphocytes # (Manual) 0.0 L ABG pH 7.172 L* ABG pO2 100.6 H ABG HCO3 17.4 L ABG O2 Saturation ABG Base Excess -10.6 L ABG Hemoglobin 9.4 L Sodium Potassium Chloride Carbon Dioxide BUN Creatinine Glucose POC Glucose Calcium Phosphorus Magnesium Iron TIBC Total Creatine Kinase Troponin T NT-Pro-B Natriuret Pep Total Protein Albumin PTH Intact Urine WBC (Auto) 12.0 H Urine Creatinine 11/12/21 11/12/21 11/12/21 06:55 09:10 12:01 WBC RBC Hgb Hct MCH MCHC RDW Lymph % (Auto) [place] % (Auto) Lymph # (Auto) [place] # (Auto) Seg Neutrophils % Seg Neuts % (Manual) Lymphocytes % (Manual) Seg Neutrophils # Seg Neutrophils # Man Lymphocytes # (Manual) ABG pH 7.296 L ABG pO2 237.3 H ABG HCO3 ABG O2 Saturation 99.3 H ABG Base Excess -6.0 L ABG Hemoglobin 8.8 L Sodium Potassium 5.5 H D Chloride 107.1 H Carbon Dioxide 19 L BUN 78 H Creatinine 9.4 H Glucose 119 H POC Glucose 106 H Calcium 8.1 L Phosphorus Magnesium Iron TIBC Total Creatine Kinase Troponin T NT-Pro-B Natriuret Pep Total Protein Albumin PTH Intact Urine WBC (Auto) Urine Creatinine 11/12/21 11/12/21 11/12/21 16:46 16:46 22:30 WBC RBC Hgb Hct MCH MCHC RDW Lymph % (Auto) [place] % (Auto) Lymph # (Auto) [place] # (Auto) Seg Neutrophils % Seg Neuts % (Manual) Lymphocytes % (Manual) Seg Neutrophils # Seg Neutrophils # Man Lymphocytes # (Manual) ABG pH ABG pO2 ABG HCO3 ABG O2 Saturation ABG Base Excess ABG Hemoglobin Sodium 146 H Potassium Chloride 108.2 H Carbon Dioxide 21 L BUN 66 H Creatinine 9.8 H Glucose 125 H POC Glucose Calcium 7.8 L Phosphorus Magnesium Iron TIBC Total Creatine Kinase Troponin T 0.319 H* 0.313 H* NT-Pro-B Natriuret Pep Total Protein Albumin PTH Intact Urine WBC (Auto) Urine Creatinine 11/12/21 11/12/21 11/13/21 23:18 Unknown 04:00 WBC 17.2 H RBC 3.09 L Hgb 8.4 L Hct 27.5 L MCH 27 L MCHC 30 L RDW 19.6 H Lymph % (Auto) [place] % (Auto) Lymph # (Auto) [place] # (Auto) Seg Neutrophils % Seg Neuts % (Manual) Lymphocytes % (Manual) Seg Neutrophils # Seg Neutrophils # Man Lymphocytes # (Manual) ABG pH ABG pO2 ABG HCO3 ABG O2 Saturation ABG Base Excess ABG Hemoglobin Sodium Potassium Chloride Carbon Dioxide BUN Creatinine Glucose POC Glucose 120 H Calcium Phosphorus Magnesium Iron TIBC Total Creatine Kinase Troponin T NT-Pro-B Natriuret Pep 3674 H Total Protein Albumin PTH Intact Urine WBC (Auto) Urine Creatinine 11/13/21 11/13/21 11/13/21 04:00 04:00 05:23 WBC RBC Hgb Hct MCH MCHC RDW Lymph % (Auto) [place] % (Auto) Lymph # (Auto) [place] # (Auto) Seg Neutrophils % Seg Neuts % (Manual) Lymphocytes % (Manual) Seg Neutrophils # Seg Neutrophils # Man Lymphocytes # (Manual) ABG pH 7.274 L ABG pO2 93.2 H ABG HCO3 ABG O2 Saturation ABG Base Excess -3.9 L ABG Hemoglobin 8.2 L Sodium Potassium Chloride Carbon Dioxide 21 L BUN 71 H Creatinine 9.9 H Glucose 128 H POC Glucose 117 H Calcium 7.7 L Phosphorus 5.10 H Magnesium 1.60 L Iron TIBC Total Creatine Kinase Troponin T NT-Pro-B Natriuret Pep Total Protein Albumin PTH Intact Urine WBC (Auto) Urine Creatinine 11/13/21 11/13/21 11/14/21 16:20 23:31 04:10 WBC RBC Hgb Hct MCH MCHC RDW Lymph % (Auto) [place] % (Auto) Lymph # (Auto) [place] # (Auto) Seg Neutrophils % Seg Neuts % (Manual) Lymphocytes % (Manual) Seg Neutrophils # Seg Neutrophils # Man Lymphocytes # (Manual) ABG pH ABG pO2 107.1 H ABG HCO3 ABG O2 Saturation ABG Base Excess ABG Hemoglobin 6.5 L Sodium Potassium Chloride Carbon Dioxide BUN Creatinine Glucose POC Glucose 125 H 123 H Calcium Phosphorus Magnesium Iron TIBC Total Creatine Kinase Troponin T NT-Pro-B Natriuret Pep Total Protein Albumin PTH Intact Urine WBC (Auto) Urine Creatinine 11/14/21 11/14/21 11/14/21 06:30 06:30 15:00 WBC 11.2 H RBC 3.03 L Hgb 8.1 L Hct 26.6 L MCH 27 L MCHC 30 L RDW 19.3 H Lymph % (Auto) [place] % (Auto) Lymph # (Auto) [place] # (Auto) Seg Neutrophils % Seg Neuts % (Manual) Lymphocytes % (Manual) Seg Neutrophils # Seg Neutrophils # Man Lymphocytes # (Manual) ABG pH ABG pO2 ABG HCO3 ABG O2 Saturation ABG Base Excess ABG Hemoglobin Sodium Potassium 3.0 L D 3.4 L Chloride Carbon Dioxide BUN 41 H Creatinine 7.0 H Glucose 107 H POC Glucose Calcium 7.5 L Phosphorus Magnesium 1.60 L Iron TIBC Total Creatine Kinase Troponin T NT-Pro-B Natriuret Pep Total Protein Albumin PTH Intact Urine WBC (Auto) Urine Creatinine 11/14/21 11/15/21 11/15/21 17:24 04:00 04:00 WBC 11.3 H RBC 3.00 L Hgb 8.1 L Hct 26.3 L MCH 27 L MCHC 31 L RDW 19.2 H Lymph % (Auto) [place] % (Auto) Lymph # (Auto) [place] # (Auto) Seg Neutrophils % Seg Neuts % (Manual) Lymphocytes % (Manual) Seg Neutrophils # Seg Neutrophils # Man Lymphocytes # (Manual) ABG pH ABG pO2 ABG HCO3 ABG O2 Saturation ABG Base Excess ABG Hemoglobin Sodium Potassium 3.4 L Chloride Carbon Dioxide BUN 32 H Creatinine 5.9 H Glucose 117 H POC Glucose 124 H Calcium 8.3 L Phosphorus Magnesium Iron TIBC Total Creatine Kinase Troponin T NT-Pro-B Natriuret Pep Total Protein Albumin PTH Intact Urine WBC (Auto) Urine Creatinine 11/15/21 11/15/21 11/16/21 13:58 16:20 04:00 WBC 13.2 H RBC 2.88 L Hgb 7.8 L Hct 25.2 L MCH 27 L MCHC 31 L RDW 19.1 H Lymph % (Auto) [place] % (Auto) Lymph # (Auto) [place] # (Auto) Seg Neutrophils % Seg Neuts % (Manual) Lymphocytes % (Manual) Seg Neutrophils # Seg Neutrophils # Man Lymphocytes # (Manual) ABG pH 7.335 L ABG pO2 254.0 H ABG HCO3 26.2 H ABG O2 Saturation 99.4 H ABG Base Excess ABG Hemoglobin 8.5 L Sodium Potassium Chloride Carbon Dioxide BUN Creatinine Glucose POC Glucose 132 H Calcium Phosphorus Magnesium Iron TIBC Total Creatine Kinase Troponin T NT-Pro-B Natriuret Pep Total Protein Albumin PTH Intact Urine WBC (Auto) Urine Creatinine 11/16/21 11/16/21 11/16/21 04:00 04:05 11:06 WBC RBC Hgb Hct MCH MCHC RDW Lymph % (Auto) [place] % (Auto) Lymph # (Auto) [place] # (Auto) Seg Neutrophils % Seg Neuts % (Manual) Lymphocytes % (Manual) Seg Neutrophils # Seg Neutrophils # Man Lymphocytes # (Manual) ABG pH ABG pO2 115.6 H ABG HCO3 ABG O2 Saturation ABG Base Excess ABG Hemoglobin 8.1 L Sodium Potassium Chloride Carbon Dioxide BUN 44 H Creatinine 7.7 H Glucose 104 H POC Glucose 106 H Calcium 7.9 L Phosphorus Magnesium Iron TIBC Total Creatine Kinase Troponin T NT-Pro-B Natriuret Pep Total Protein Albumin PTH Intact Urine WBC (Auto) Urine Creatinine 11/16/21 11/16/21 11/17/21 18:05 23:51 04:15 WBC 11.8 H RBC 3.02 L Hgb 8.1 L Hct 26.9 L MCH 27 L MCHC 30 L RDW 18.9 H Lymph % (Auto) [place] % (Auto) Lymph # (Auto) [place] # (Auto) Seg Neutrophils % Seg Neuts % (Manual) Lymphocytes % (Manual) Seg Neutrophils # Seg Neutrophils # Man Lymphocytes # (Manual) ABG pH ABG pO2 ABG HCO3 ABG O2 Saturation ABG Base Excess ABG Hemoglobin Sodium Potassium Chloride Carbon Dioxide BUN Creatinine Glucose POC Glucose 109 H 118 H Calcium Phosphorus Magnesium Iron TIBC Total Creatine Kinase Troponin T NT-Pro-B Natriuret Pep Total Protein Albumin PTH Intact Urine WBC (Auto) Urine Creatinine 11/17/21 11/17/21 11/17/21 04:15 04:25 11:25 WBC RBC Hgb Hct MCH MCHC RDW Lymph % (Auto) [place] % (Auto) Lymph # (Auto) [place] # (Auto) Seg Neutrophils % Seg Neuts % (Manual) Lymphocytes % (Manual) Seg Neutrophils # Seg Neutrophils # Man Lymphocytes # (Manual) ABG pH ABG pO2 153.8 H ABG HCO3 ABG O2 Saturation ABG Base Excess ABG Hemoglobin 8.3 L Sodium Potassium Chloride Carbon Dioxide BUN 33 H Creatinine 6.2 H Glucose 118 H POC Glucose 108 H Calcium Phosphorus Magnesium Iron TIBC Total Creatine Kinase Troponin T NT-Pro-B Natriuret Pep Total Protein Albumin PTH Intact Urine WBC (Auto) Urine Creatinine 11/18/21 11/18/21 11/18/21 04:00 04:00 04:35 WBC RBC 2.88 L Hgb 7.8 L Hct 25.3 L MCH 27 L MCHC 31 L RDW 18.7 H Lymph % (Auto) [place] % (Auto) Lymph # (Auto) [place] # (Auto) Seg Neutrophils % Seg Neuts % (Manual) Lymphocytes % (Manual) Seg Neutrophils # Seg Neutrophils # Man Lymphocytes # (Manual) ABG pH 7.467 H ABG pO2 110.0 H ABG HCO3 26.2 H ABG O2 Saturation ABG Base Excess ABG Hemoglobin 8.1 L Sodium Potassium Chloride Carbon Dioxide BUN 28 H Creatinine 5.5 H Glucose POC Glucose Calcium Phosphorus Magnesium Iron TIBC Total Creatine Kinase Troponin T NT-Pro-B Natriuret Pep Total Protein Albumin PTH Intact Urine WBC (Auto) Urine Creatinine 11/18/21 11/19/21 11:50 04:00 WBC RBC Hgb Hct MCH MCHC RDW Lymph % (Auto) [place] % (Auto) Lymph # (Auto) [place] # (Auto) Seg Neutrophils % Seg Neuts % (Manual) Lymphocytes % (Manual) Seg Neutrophils # Seg Neutrophils # Man Lymphocytes # (Manual) ABG pH ABG pO2 ABG HCO3 ABG O2 Saturation ABG Base Excess ABG Hemoglobin Sodium Potassium Chloride Carbon Dioxide BUN 26 H Creatinine 4.7 H Glucose 110 H POC Glucose 131 H Calcium Phosphorus Magnesium Iron TIBC Total Creatine Kinase Troponin T NT-Pro-B Natriuret Pep Total Protein Albumin PTH Intact Urine WBC (Auto) Urine Creatinine Allied health notes reviewed: nursing
--- NOTE | 2021-11-19 11:21 | Progress Note ---
<RUFUS ALVAREZ - Last Filed: 11/19/21 16:15> Assessment and Plan Assessment and plan: This is a 56-year-old male with DM, HTN, obesity, currently bedbound and past intubations admitted with acute hypoxic respiratory failure and acute renal failure Hospital course to date: 11/12: Overnight patient received a dialysis catheter and was initiated on dialysis. Iglesias catheter was also placed. Antibiotics discontinued. proBNP pending. Decrease in FiO2 related to ABG. Echocardiogram pending. Patient given X1 for potassium 5.5 and nutrition consulted for tube feedings. updated brother at bedside 11/13: Propofol letter for sedation as patient seems restless on the ventilator only on fentanyl. HD scheduled for today. [facility] plans to conduct PSV possibly Sunday. 11/14: Tolerated HD overnight, 2L removed. Plan for possible HD again today. Patient is tolerating PST today on low dose fentanyl, plan for possible extubation tomorrow. 11/15: SNAA overnight. Remains on the vent and on low dose sedation. Continue to tolerate HD. Plan for PST and possible extubation today. 11/16: Failed extubation yesterday and had to be emergently reintubated due to hypoxia and decreased LOC. Patient is stable on the vent this am, remains on low dose sedation, while awake and following commands. CCM recommendations noted due to patient's body habitus, he might need to be trach/Peg. CT neck was canceled due to weight limit. General Surgery consulted for Trach/PEG eval. 11/17: Remains on the vent, sedation increased overnight due to increased agitation and low dose pressors were initiated. Patient tolerated HD yesterday, plan for HD again today. Plan for possible trach/PEG vs possible transfer for ENT eval for trach/PEG. Awaiting on General surgery recommendations. 11/18: SANA overnight. D/w CCM plan for US thyroid biopsy per General Surgery recommendation due thyroid nodule to r/o malignancy. Patient remains on low dose levophed gtt. Continue HD per Nephro. 11/19: Periods of low SPO2 overnight which resolved with deep suctioning. Patient remains on low dose vent setting, no respiratory distress noted this am. Patient remains on sedation and low dose levophed, MAP in the 70s, continue to wean pressors for MAP above 65. Pending US biopsy of the thyroid for possible trach per General Surgery. Neuro: Acute metabolic encephalopathy -Intubated on Fentanyl and prop drip, RASS 0 -RASS goal 0 to -1 -Avoid delirium -Reorientation as needed -Maintain sleep-wake cycle -aspiration/seizure precautions -As needed analgesia -Patient will open eyes to verbal stimuli -Consider neurology consult Cardiac: h/o HTN, elevated troponins -Cardiology consulted, appreciate recommendations -Blood pressure monitoring per protocol -S/p vasopressor support -Echocardiogram shows ejection fraction greater than 70 Respiratory: Acute hypoxic respiratory failure, ? [facility] consulted, appreciate recommendations -Intubated in the emergency department on 11/04 -11/15 Failed extubation had to be emergently reintubated due to hypoxia and decreased LOC -A.m. vent settings:AC/PRVC rate 20, tidal 550, PEEP 8, FiO2 30% -See RT notes for titration -A.m. ABG and CXR noted -VAP bundle -SPO2 monitoring -Per [facility] patient might need trach/PEG -General Surgery consulted GI: Protin calorie malnutrition, Morbid obesity -Continue enteral nutrition -NTR consulted for tube feedings -BR: Colace : Acute Renal Failure -FeNa 1.04% indicating either ATN or prerenal state -Nephrology consulted, appreciate recommendations -Vas-Cath placed at HD initiated 11/12 -HD per nephrology -Strict intake and output -Renally dose medications -Avoid nephrotoxic medications -Daily weights -Renal ultrasound pending -Trend BMP -Repeat magnesium Endo: h/o DM -Avoid hypoglycemia -SSI -Accu-Cheks q. 6 -Hemoglobin A1c 5.7 GI/DVT Prophylaxis - PPI- Pepcid - Heparin SubQ The high probability of a clinically significant, sudden or life threatening de terioration of the [multi] system(s) required my full and direct attention, intervention and personal management. The aggregate critical care time was [60] minutes. This time is in addition to time spent performing reported procedures but includes the following: [x] Data Review and interpretation [x] Patient assessment and monitoring of vital signs [x] Documentation [x] Medication orders and management Disposition Plan: icu Total Time Spent with Patient (Minutes): 60 History Interval history: Patient seen and examined at the bedside. Remains intubated and sedated on propofol and fentanyl. On low dose levophed this am. Periods of desaturations in the 80s overnight which resolved with deep suctioning. Otherwise SANA overnight Hospitalist Physical - Constitutional Vitals: Temp Pulse Resp BP Pulse Ox 97.4 F L 72 20 91/50 96 11/19/21 08:00 11/19/21 10:00 11/19/21 10:00 11/19/21 10:00 11/19/21 10:00 General appearance: Present: no acute distress, obese, other (intubated and sedated, easily arousable and following commands) - EENT Eyes: Present: PERRL ENT: hearing intact - Neck Neck: Present: normal ROM - Respiratory Respiratory effort: normal Respiratory: bilateral: rhonchi - Cardiovascular Rhythm: regular Heart Sounds: Present: S1 & S2 - Extremities Extremities: no ischemia, pulses intact, pulses symmetrical Extremity abnormal: edema - Peripheral Assessment Generalized Edema Type: Non-pitting Edema Degree: 2+ Capillary Refill: < 3 seconds Skin Temperature: Warm Peripheral Pulses: within normal limits - Abdominal General gastrointestinal: soft, non-distended, normal bowel sounds - Integumentary Integumentary: Present: warm, dry - Psychiatric Psychiatric: appropriate mood/affect, cooperative, other (intubated and sedated, easily arousable and following commands) - Neurologic Neurologic: moves all extremities (Except RUE- Broken wrist at baseline), other (intubated and sedated, easily arousable and following commands) - Allied Health Allied health notes reviewed: nursing, case management HEART Score - HEART Score Troponin: Troponin T 0.313 ng/mL (0.00-0.029) H* 11/12/21 22:30 Results - Labs CBC & Chem 7: 11/18/21 04:00 11/19/21 04:00 Labs: Laboratory Last Values WBC 10.9 K/mm3 (4.5-11.0) 11/18/21 04:00 RBC 2.88 M/mm3 (3.65-5.03) L 11/18/21 04:00 Hgb 7.8 gm/dl (11.8-15.2) L 11/18/21 04:00 Hct 25.3 % (35.5-45.6) L 11/18/21 04:00 MCV 88 fl (84-94) 11/18/21 04:00 MCH 27 pg (28-32) L 11/18/21 04:00 MCHC 31 % (32-34) L 11/18/21 04:00 RDW 18.7 % (13.2-15.2) H 11/18/21 04:00 Plt Count 229 K/mm3 (140-440) 11/18/21 04:00 Lymph % (Auto) 10.0 % (13.4-35.0) L 11/11/21 19:49 [place] % (Auto) 8.8 % (0.0-7.3) H 11/11/21 19:49 Eos % (Auto) 0.9 % (0.0-4.3) 11/11/21 19:49 Baso % (Auto) 0.5 % (0.0-1.8) 11/11/21 19:49 Lymph # (Auto) 1.1 K/mm3 (1.2-5.4) L 11/11/21 19:49 [place] # (Auto) 1.0 K/mm3 (0.0-0.8) H 11/11/21 19:49 Eos # (Auto) 0.1 K/mm3 (0.0-0.4) 11/11/21 19:49 Baso # (Auto) 0.1 K/mm3 (0.0-0.1) 11/11/21 19:49 Add Manual Diff Complete 11/12/21 06:55 Total Counted 100 11/12/21 06:55 Seg Neutrophils % Office Support Associate 11/12/21 06:55 Seg Neuts % (Manual) 89.0 % (40.0-70.0) H 11/12/21 06:55 Band Neutrophils % 5.0 % 11/12/21 06:55 Lymphocytes % (Manual) 0 % (13.4-35.0) L 11/12/21 06:55 Reactive Lymphs % (Man) 0 % 11/12/21 06:55 Monocytes % (Manual) 3.0 % (0.0-7.3) 11/12/21 06:55 Eosinophils % (Manual) 0 % (0.0-4.3) 11/12/21 06:55 Basophils % (Manual) 0 % (0.0-1.8) 11/12/21 06:55 Metamyelocytes % 3.0 % 11/12/21 06:55 Myelocytes % 0 % 11/12/21 06:55 Promyelocytes % 0 % 11/12/21 06:55 Blast Cells % 0 % 11/12/21 06:55 Nucleated RBC % Not Reportable 11/12/21 06:55 Seg Neutrophils # 9.2 K/mm3 (1.8-7.7) H 11/11/21 19:49 Seg Neutrophils # Man 18.2 K/mm3 (1.8-7.7) H 11/12/21 06:55 Band Neutrophils # 1.0 K/mm3 11/12/21 06:55 Lymphocytes # (Manual) 0.0 K/mm3 (1.2-5.4) L 11/12/21 06:55 Abs React Lymphs (Man) 0.0 K/mm3 11/12/21 06:55 Monocytes # (Manual) 0.6 K/mm3 (0.0-0.8) 11/12/21 06:55 Eosinophils # (Manual) 0.0 K/mm3 (0.0-0.4) 11/12/21 06:55 Basophils # (Manual) 0.0 K/mm3 (0.0-0.1) 11/12/21 06:55 Metamyelocytes # 0.6 K/mm3 11/12/21 06:55 Myelocytes # 0.0 K/mm3 11/12/21 06:55 Promyelocytes # 0.0 K/mm3 11/12/21 06:55 Blast Cells # 0.0 K/mm3 11/12/21 06:55 WBC Morphology Not Reportable 11/12/21 06:55 Hypersegmented Neuts Not Reportable 11/12/21 06:55 Hyposegmented Neuts Not Reportable 11/12/21 06:55 Hypogranular Neuts Not Reportable 11/12/21 06:55 Smudge Cells Not Reportable 11/12/21 06:55 Toxic Granulation 1+ 11/12/21 06:55 Toxic Vacuolation Not Reportable 11/12/21 06:55 Dohle Bodies Not Reportable 11/12/21 06:55 Pelger-Huet Anomaly Not Reportable 11/12/21 06:55 Lissa Rods Not Reportable 11/12/21 06:55 Platelet Estimate Consistent w auto 11/12/21 06:55 Clumped Platelets Not Reportable 11/12/21 06:55 Plt Clumps, EDTA Not Reportable 11/12/21 06:55 Large Platelets Not Reportable 11/12/21 06:55 Giant Platelets Not Reportable 11/12/21 06:55 Platelet Satelliting Not Reportable 11/12/21 06:55 Plt Morphology Comment Not Reportable 11/12/21 06:55 RBC Morphology Normal 11/12/21 06:55 Dimorphic RBCs Not Reportable 11/12/21 06:55 Polychromasia Not Reportable 11/12/21 06:55 Hypochromasia Not Reportable 11/12/21 06:55 Poikilocytosis Not Reportable 11/12/21 06:55 Anisocytosis Not Reportable 11/12/21 06:55 Microcytosis Not Reportable 11/12/21 06:55 Macrocytosis Not Reportable 11/12/21 06:55 Spherocytes Not Reportable 11/12/21 06:55 Pappenheimer Bodies Not Reportable 11/12/21 06:55 Sickle Cells Not Reportable 11/12/21 06:55 Target Cells Not Reportable 11/12/21 06:55 Tear Drop Cells Not Reportable 11/12/21 06:55 Ovalocytes Not Reportable 11/12/21 06:55 Helmet Cells Not Reportable 11/12/21 06:55 Shea-[place]dale Bodies Not Reportable 11/12/21 06:55 [place] Rings Not Reportable 11/12/21 06:55 [place] Cells Not Reportable 11/12/21 06:55 Bite Cells Not Reportable 11/12/21 06:55 Crenated Cell Not Reportable 11/12/21 06:55 Elliptocytes Not Reportable 11/12/21 06:55 Acanthocytes (Spur) Not Reportable 11/12/21 06:55 Rouleaux Not Reportable 11/12/21 06:55 Hemoglobin C Crystals Not Reportable 11/12/21 06:55 Schistocytes Not Reportable 11/12/21 06:55 Malaria parasites Not Reportable 11/12/21 06:55 Nam Bodies Not Reportable 11/12/21 06:55 Hem Pathologist Commnt No 11/12/21 06:55 ABG pH 7.467 pH Units (7.350-7.450) H 11/18/21 04:35 ABG pCO2 37.1 mm Hg 11/18/21 04:35 ABG pO2 110.0 mm Hg (80.0-90.0) H 11/18/21 04:35 ABG HCO3 26.2 mmol/L (20.0-26.0) H 11/18/21 04:35 ABG O2 Saturation 98.1 % (95.0-99.0) 11/18/21 04:35 ABG O2 Content 11.3 (0.0-44) 11/18/21 04:35 ABG Base Excess 2.4 mmol/L (-2.0-3.0) 11/18/21 04:35 ABG Hemoglobin 8.1 gm/dl (14.0-18.0) L 11/18/21 04:35 ABG Carboxyhemoglobin 1.2 % (0.0-5.0) 11/18/21 04:35 ABG Methemoglobin 0.4 % (0.0-1.5) 11/18/21 04:35 Oxyhemoglobin 96.5 % (95.0-99.0) 11/18/21 04:35 FiO2 30 % 11/18/21 04:35 Sodium 137 mmol/L (137-145) 11/19/21 04:00 Potassium 3.9 mmol/L (3.6-5.0) 11/19/21 04:00 Chloride 99.7 mmol/L (98-107) 11/19/21 04:00 Carbon Dioxide 25 mmol/L (22-30) 11/19/21 04:00 Anion Gap 16 mmol/L 11/19/21 04:00 BUN 26 mg/dL (9-20) H 11/19/21 04:00 Creatinine 4.7 mg/dL (0.8-1.3) H 11/19/21 04:00 Estimated GFR 16 ml/min 11/19/21 04:00 BUN/Creatinine Ratio 6 % 11/19/21 04:00 Glucose 110 mg/dL (75-100) H 11/19/21 04:00 POC Glucose 87 mg/dL (70-105) 11/19/21 05:12 Hemoglobin A1c 5.7 % (4-6) 11/12/21 06:55 Lactic Acid 0.90 mmol/L (0.7-2.0) 11/11/21 19:49 Calcium 8.9 mg/dL (8.4-10.2) 11/19/21 04:00 Phosphorus 3.60 mg/dL (2.5-4.5) 11/19/21 04:00 Magnesium 1.80 mg/dL (1.7-2.3) 11/19/21 04:00 Iron 24 ug/dL (49-181) L 11/11/21 23:29 TIBC 157 mcg/dL (250-450) L 11/11/21 23:29 Total Bilirubin 0.40 mg/dL (0.1-1.2) 11/11/21 19:49 AST 10 units/L (5-40) 11/11/21 19:49 ALT 7 units/L (7-56) 11/11/21 19:49 Alkaline Phosphatase 111 units/L (35-129) 11/11/21 19:49 Total Creatine Kinase 268 units/L (55-170) H 11/11/21 23:29 Troponin T 0.313 ng/mL (0.00-0.029) H* 11/12/21 22:30 NT-Pro-B Natriuret Pep 3674 pg/mL (0-900) H 11/12/21 Unknown Total Protein 9.1 g/dL (6.3-8.2) H 11/11/21 19:49 Albumin 3.0 g/dL (3.9-5) L 11/11/21 19:49 Albumin/Globulin Ratio 0.5 % 11/11/21 19:49 Triglycerides 105 mg/dL (2-149) 11/19/21 04:00 Cholesterol 146 mg/dL (50-199) 11/11/21 19:49 LDL Cholesterol Direct 85 mg/dL (50-130) 11/11/21 19:49 HDL Cholesterol 43 mg/dL (40-59) 11/11/21 19:49 Cholesterol/HDL Ratio 3.39 % 11/11/21 19:49 PTH Intact 1174 pg/mL (15-65) H 11/11/21 23:29 Urine Color Yellow (Yellow) 11/12/21 02:20 Urine Turbidity Cloudy (Clear) 11/12/21 02:20 Urine pH 5.0 (5.0-7.0) 11/12/21 02:20 Ur Specific [place] 1.013 (1.003-1.030) 11/12/21 02:20 Urine Protein >500 mg/dL (Negative) 11/12/21 02:20 Urine Glucose (UA) Neg mg/dL (Negative) 11/12/21 02:20 Urine Ketones Neg mg/dL (Negative) 11/12/21 02:20 Urine Blood Sm (Negative) 11/12/21 02:20 Urine Nitrite Neg (Negative) 11/12/21 02:20 Urine Bilirubin Neg (Negative) 11/12/21 02:20 Urine Urobilinogen < 2.0 mg/dL (<2.0) 11/12/21 02:20 Ur Leukocyte Esterase Tr (Negative) 11/12/21 02:20 Urine WBC (Auto) 12.0 /HPF (0.0-6.0) H 11/12/21 02:20 Urine RBC (Auto) 4.0 /HPF (0.0-6.0) 11/12/21 02:20 U Epithel Cells (Auto) 9.0 /HPF (0-13.0) 11/12/21 02:20 Urine Bacteria (Auto) 2+ /HPF (Negative) 11/12/21 02:20 Urine Mucus Few /HPF 11/12/21 02:20 Urine Yeast (Budding) 3+ /HPF 11/12/21 02:20 Urine Eosinophils None seen (None Seen) 11/12/21 02:20 Urine Creatinine 189.3 mg/dL (0.1-20.0) H 11/12/21 02:20 Urine Sodium 30 mmol/L 11/12/21 02:20 Hepatitis A IgM Ab Non-reactive (NonReactive) 11/12/21 04:45 Hep Bs Antigen Non-reactive (Negative) 11/12/21 04:45 Hep B Core IgM Ab Non-reactive (NonReactive) 11/12/21 04:45 Hepatitis C Antibody Non-reactive (NonReactive) 11/12/21 04:45 Iglesias/IV: Voiding Method Incontinent Active Medications - Current Medications Current Medications: Generic Name Dose Route Start Last Admin Trade Name Freq PRN Reason Stop Dose Admin Acetaminophen 650 mg 11/11/21 22:40 Acetaminophen 325 Mg Tab PO Q4H PRN Pain MILD(1-3)/Fever >100.5/SOTO Albuterol 2.5 mg 11/11/21 22:40 Albuterol 2.5 Mg/3 Ml Nebu IH Q3HRT PRN Shortness Of Breath Aspirin 325 mg 11/17/21 10:00 11/19/21 09:35 Aspirin 325 Mg Tab FEEDTUBE 325 mg QDAY BAO Administration Atorvastatin Calcium 40 mg 11/17/21 22:00 11/18/21 21:45 Atorvastatin 40 Mg Tab FEEDTUBE 40 mg QHS BAO Administration Dextrose 50 ml 11/18/21 13:00 Dextrose 50% In Water (25gm) 50 Ml Syringe IV Q30MIN PRN Hypoglycemia Protocol Docusate Sodium 100 mg 11/17/21 10:00 11/19/21 09:35 Docusate Sodium 100 Mg/10 Ml Oral Liqd FEEDTUBE 100 mg BID BAO Administration Famotidine 20 mg 11/17/21 10:00 11/19/21 09:35 Famotidine 20 Mg Tab FEEDTUBE 20 mg QDAY BAO Administration Fentanyl 50 mcg 11/11/21 20:56 11/12/21 00:12 Fentanyl 100 Mcg/2 Ml Inj IV 50 mcg Q10MIN PRN Administration ANALGESIA Heparin Sodium (Porcine) 5,000 unit 11/12/21 10:00 11/19/21 09:35 Heparin 5,000 Unit/1 Ml Vial SUB-Q 5,000 unit Q12HR BAO Administration Hydrophilic Ointment 1 applic 11/11/21 20:56 Lip Therapy Vaseline TP Q2HR PRN Dry Lips Fentanyl Citrate 2,000 mcg in 100 mls @ 13.608 mls/hr 11/11/21 21:00 11/19/21 08:12 Fentanyl Drip Premix IV 2 mcg/kg/hr TITR BAO 27.216 mls/hr Administration Protocol 1 MCG/KG/HR NORepinephrine/NS 8 MG-250 ML 8 mg in 250 mls @ 3.75 mls/hr 11/11/21 23:00 11/19/21 10:47 Norepinephrine/Ns 8 Mg-250 Ml (Double Conc) IV 4 mcg/min TITRATE BAO 7.5 mls/hr Titration Protocol 2 MCG/MIN Propofol 1,000 mg in 100 mls @ 8.166 mls/hr 11/13/21 09:00 11/19/21 10:41 Diprivan 10 Mg/Ml IV 15 mcg/kg/min TITR BAO 24.498 mls/hr Administration Protocol 5 MCG/KG/MIN Sodium Chloride 100 mls @ 999 mls/hr 11/16/21 10:22 Nacl 0.9% IV LONG PRN Hypotension Insulin Human Lispro 0 unit 11/12/21 00:00 11/19/21 07:04 Insulin Lispro 100 Unit/Ml SUB-Q Not Given Q6HR [facility] Protocol Multi-Ingred Cream/Lotion/Oil/Oint 1 applic 11/11/21 20:56 Mineral Oil/Petrolatum, White Ophth Oint 3.5 Gm OU Q4HR PRN Dry Eye(s) Ondansetron HCl 4 mg 11/11/21 22:40 Ondansetron 4 Mg/2 Ml Inj IV Q8H PRN Nausea And Vomiting Senna 8.6 mg 11/17/21 10:00 11/19/21 09:35 Sennosides 8.6 Mg Tab FEEDTUBE 8.6 mg Q12H BAO Administration Sodium Chloride 10 ml 11/12/21 10:00 11/19/21 09:36 Sodium Chloride 0.9% 10 Ml Flush Syringe IV 10 ml BID BAO Administration Sodium Chloride 10 ml 11/11/21 22:40 Sodium Chloride 0.9% 10 Ml Flush Syringe IV PRN PRN LINE FLUSH Nutrition/Malnutrition Assess - Dietary Evaluation Nutrition/Malnutrition Findings: Nutrition Notes Start: 11/12/21 16:08 Freq: Status: Active Protocol: Document 11/14/21 15:39 TODD (Rec: 11/14/21 15:45 TODD [id number]) Nutrition Notes Initial or Follow up Reassessment Current Diagnosis Diabetes,Hypertension, Respiratory Failure Other Pertinent Diagnosis Acute renal failure (on HD), pneu Current Diet TF - Nepro at 50ml/hr Labs/Tests K 3 BUN 41 Cr 7 Mg 1.6 Pertinent Medications Mg sulfate x 1 dose, Levophed gtt, 20mEq KCl x 1 dose Height 5 ft 9 in Weight 272.2 kg [place] Body Weight (kg) 72.72 BMI 88.6 Weight Status Morbidly Obese Subjective/Other Information Observed Nepro infusing at goal rate. Per RN, pt tolerating TF. Pt remains on vent support. Percent of energy/protein needs met: 99% energy 53% pro Burn Absent Trauma Absent #1 Nutrition Diagnosis Inadequate oral intake Diagnosis Progress(for reassessment Continues documentation) Is patient on ventilator? Yes Is Patient Ambulatory and/or Out of Bed No REE-([facility]-confined to bed) 4258.860 Kcal/Kg value to use for calculation 8 Approximate Energy Requirements Using 2178 kcal/Kg Additional Notes Pro needs up to 2.5g/kg IBW: 182g/day Fluid needs 1-1.5L/day Nutrition Intervention Nutrition Support: Continue Nepro at 50ml/hr with 200ml water flush q4h. Kcal 2,160 Protein (gm) 97 Carbohydrates (gm) 193 Fat (gm) 115 Fluid (mL) 872 Fiber (gm) 15 Goal #1 TF tolerance Goal #2 TF to meet at least 75% energy and pro needs Follow-Up By: 11/21/21 Additional Comments F/U: stable TF, vent status, wt <ERIN SALVADOR - Last Filed: 11/21/21 13:34> Assessment and Plan Assessment and plan: I saw and evaluated the patient. Discussed with the nurse practitioner and agree with their findings and plan as documented in this note. Hospitalist Physical - Constitutional Vitals: Temp Pulse Resp BP Pulse Ox 99.3 F 105 H 20 119/72 92 11/21/21 12:00 11/21/21 12:00 11/21/21 12:00 11/21/21 12:00 11/21/21 12:00 HEART Score - HEART Score Troponin: Troponin T 0.313 ng/mL (0.00-0.029) H* 11/12/21 22:30 Results - Labs CBC & Chem 7: 11/21/21 04:00 11/21/21 04:00 Labs: Laboratory Last Values WBC 12.0 K/mm3 (4.5-11.0) H 11/21/21 04:00 RBC 2.85 M/mm3 (3.65-5.03) L 11/21/21 04:00 Hgb 7.8 gm/dl (11.8-15.2) L 11/21/21 04:00 Hct 24.8 % (35.5-45.6) L 11/21/21 04:00 MCV 87 fl (84-94) 11/21/21 04:00 MCH 28 pg (28-32) 11/21/21 04:00 MCHC 32 % (32-34) 11/21/21 04:00 RDW 18.5 % (13.2-15.2) H 11/21/21 04:00 Plt Count 205 K/mm3 (140-440) 11/21/21 04:00 Lymph % (Auto) 10.0 % (13.4-35.0) L 11/11/21 19:49 [place] % (Auto) 8.8 % (0.0-7.3) H 11/11/21 19:49 Eos % (Auto) 0.9 % (0.0-4.3) 11/11/21 19:49 Baso % (Auto) 0.5 % (0.0-1.8) 11/11/21 19:49 Lymph # (Auto) 1.1 K/mm3 (1.2-5.4) L 11/11/21 19:49 [place] # (Auto) 1.0 K/mm3 (0.0-0.8) H 11/11/21 19:49 Eos # (Auto) 0.1 K/mm3 (0.0-0.4) 11/11/21 19:49 Baso # (Auto) 0.1 K/mm3 (0.0-0.1) 11/11/21 19:49 Add Manual Diff Complete 11/12/21 06:55 Total Counted 100 11/12/21 06:55 Seg Neutrophils % Office Support Associate 11/12/21 06:55 Seg Neuts % (Manual) 89.0 % (40.0-70.0) H 11/12/21 06:55 Band Neutrophils % 5.0 % 11/12/21 06:55 Lymphocytes % (Manual) 0 % (13.4-35.0) L 11/12/21 06:55 Reactive Lymphs % (Man) 0 % 11/12/21 06:55 Monocytes % (Manual) 3.0 % (0.0-7.3) 11/12/21 06:55 Eosinophils % (Manual) 0 % (0.0-4.3) 11/12/21 06:55 Basophils % (Manual) 0 % (0.0-1.8) 11/12/21 06:55 Metamyelocytes % 3.0 % 11/12/21 06:55 Myelocytes % 0 % 11/12/21 06:55 Promyelocytes % 0 % 11/12/21 06:55 Blast Cells % 0 % 11/12/21 06:55 Nucleated RBC % Not Reportable 11/12/21 06:55 Seg Neutrophils # 9.2 K/mm3 (1.8-7.7) H 11/11/21 19:49 Seg Neutrophils # Man 18.2 K/mm3 (1.8-7.7) H 11/12/21 06:55 Band Neutrophils # 1.0 K/mm3 11/12/21 06:55 Lymphocytes # (Manual) 0.0 K/mm3 (1.2-5.4) L 11/12/21 06:55 Abs React Lymphs (Man) 0.0 K/mm3 11/12/21 06:55 Monocytes # (Manual) 0.6 K/mm3 (0.0-0.8) 11/12/21 06:55 Eosinophils # (Manual) 0.0 K/mm3 (0.0-0.4) 11/12/21 06:55 Basophils # (Manual) 0.0 K/mm3 (0.0-0.1) 11/12/21 06:55 Metamyelocytes # 0.6 K/mm3 11/12/21 06:55 Myelocytes # 0.0 K/mm3 11/12/21 06:55 Promyelocytes # 0.0 K/mm3 11/12/21 06:55 Blast Cells # 0.0 K/mm3 11/12/21 06:55 WBC Morphology Not Reportable 11/12/21 06:55 Hypersegmented Neuts Not Reportable 11/12/21 06:55 Hyposegmented Neuts Not Reportable 11/12/21 06:55 Hypogranular Neuts Not Reportable 11/12/21 06:55 Smudge Cells Not Reportable 11/12/21 06:55 Toxic Granulation 1+ 11/12/21 06:55 Toxic Vacuolation Not Reportable 11/12/21 06:55 Dohle Bodies Not Reportable 11/12/21 06:55 Pelger-Huet Anomaly Not Reportable 11/12/21 06:55 Lissa Rods Not Reportable 11/12/21 06:55 Platelet Estimate Consistent w auto 11/12/21 06:55 Clumped Platelets Not Reportable 11/12/21 06:55 Plt Clumps, EDTA Not Reportable 11/12/21 06:55 Large Platelets Not Reportable 11/12/21 06:55 Giant Platelets Not Reportable 11/12/21 06:55 Platelet Satelliting Not Reportable 11/12/21 06:55 Plt Morphology Comment Not Reportable 11/12/21 06:55 RBC Morphology Normal 11/12/21 06:55 Dimorphic RBCs Not Reportable 11/12/21 06:55 Polychromasia Not Reportable 11/12/21 06:55 Hypochromasia Not Reportable 11/12/21 06:55 Poikilocytosis Not Reportable 11/12/21 06:55 Anisocytosis Not Reportable 11/12/21 06:55 Microcytosis Not Reportable 11/12/21 06:55 Macrocytosis Not Reportable 11/12/21 06:55 Spherocytes Not Reportable 11/12/21 06:55 Pappenheimer Bodies Not Reportable 11/12/21 06:55 Sickle Cells Not Reportable 11/12/21 06:55 Target Cells Not Reportable 11/12/21 06:55 Tear Drop Cells Not Reportable 11/12/21 06:55 Ovalocytes Not Reportable 11/12/21 06:55 Helmet Cells Not Reportable 11/12/21 06:55 Shea-[place] Bodies Not Reportable 11/12/21 06:55 [place] Rings Not Reportable 11/12/21 06:55 [place] Cells Not Reportable 11/12/21 06:55 Bite Cells Not Reportable 11/12/21 06:55 Crenated Cell Not Reportable 11/12/21 06:55 Elliptocytes Not Reportable 11/12/21 06:55 Acanthocytes (Spur) Not Reportable 11/12/21 06:55 [place]leaux Not Reportable 11/12/21 06:55 Hemoglobin C Crystals Not Reportable 11/12/21 06:55 Schistocytes Not Reportable 11/12/21 06:55 Malaria parasites Not Reportable 11/12/21 06:55 Nam Bodies Not Reportable 11/12/21 06:55 Hem Pathologist Commnt No 11/12/21 06:55 ABG pH 7.467 pH Units (7.350-7.450) H 11/18/21 04:35 ABG pCO2 37.1 mm Hg 11/18/21 04:35 ABG pO2 110.0 mm Hg (80.0-90.0) H 11/18/21 04:35 ABG HCO3 26.2 mmol/L (20.0-26.0) H 11/18/21 04:35 ABG O2 Saturation 98.1 % (95.0-99.0) 11/18/21 04:35 ABG O2 Content 11.3 (0.0-44) 11/18/21 04:35 ABG Base Excess 2.4 mmol/L (-2.0-3.0) 11/18/21 04:35 ABG Hemoglobin 8.1 gm/dl (14.0-18.0) L 11/18/21 04:35 ABG Carboxyhemoglobin 1.2 % (0.0-5.0) 11/18/21 04:35 ABG Methemoglobin 0.4 % (0.0-1.5) 11/18/21 04:35 Oxyhemoglobin 96.5 % (95.0-99.0) 11/18/21 04:35 FiO2 30 % 11/18/21 04:35 Sodium 133 mmol/L (137-145) L 11/21/21 04:00 Potassium 4.3 mmol/L (3.6-5.0) 11/21/21 04:00 Chloride 95.3 mmol/L (98-107) L 11/21/21 04:00 Carbon Dioxide 25 mmol/L (22-30) 11/21/21 04:00 Anion Gap 17 mmol/L 11/21/21 04:00 BUN 40 mg/dL (9-20) H 11/21/21 04:00 Creatinine 6.2 mg/dL (0.8-1.3) H 11/21/21 04:00 Estimated GFR 11 ml/min 11/21/21 04:00 BUN/Creatinine Ratio 6 % 11/21/21 04:00 Glucose 103 mg/dL (75-100) H 11/21/21 04:00 POC Glucose 102 mg/dL (70-105) 11/21/21 05:25 Hemoglobin A1c 5.7 % (4-6) 11/12/21 06:55 Lactic Acid 0.90 mmol/L (0.7-2.0) 11/11/21 19:49 Calcium 8.9 mg/dL (8.4-10.2) 11/21/21 04:00 Phosphorus 3.70 mg/dL (2.5-4.5) D 11/21/21 04:00 Magnesium 1.90 mg/dL (1.7-2.3) 11/21/21 04:00 Iron 24 ug/dL (49-181) L 11/11/21 23:29 TIBC 157 mcg/dL (250-450) L 11/11/21 23:29 Total Bilirubin 0.40 mg/dL (0.1-1.2) 11/11/21 19:49 AST 10 units/L (5-40) 11/11/21 19:49 ALT 7 units/L (7-56) 11/11/21 19:49 Alkaline Phosphatase 111 units/L (35-129) 11/11/21 19:49 Total Creatine Kinase 268 units/L (55-170) H 11/11/21 23:29 Troponin T 0.313 ng/mL (0.00-0.029) H* 11/12/21 22:30 NT-Pro-B Natriuret Pep 3674 pg/mL (0-900) H 11/12/21 Unknown Total Protein 9.1 g/dL (6.3-8.2) H 11/11/21 19:49 Albumin 3.0 g/dL (3.9-5) L 11/11/21 19:49 Albumin/Globulin Ratio 0.5 % 11/11/21 19:49 Triglycerides 109 mg/dL (2-149) 11/21/21 04:00 Cholesterol 146 mg/dL (50-199) 11/11/21 19:49 LDL Cholesterol Direct 85 mg/dL (50-130) 11/11/21 19:49 HDL Cholesterol 43 mg/dL (40-59) 11/11/21 19:49 Cholesterol/HDL Ratio 3.39 % 11/11/21 19:49 PTH Intact 1174 pg/mL (15-65) H 11/11/21 23:29 Urine Color Yellow (Yellow) 11/12/21 02:20 Urine Turbidity Cloudy (Clear) 11/12/21 02:20 Urine pH 5.0 (5.0-7.0) 11/12/21 02:20 Ur Specific [place] 1.013 (1.003-1.030) 11/12/21 02:20 Urine Protein >500 mg/dL (Negative) 11/12/21 02:20 Urine Glucose (UA) Neg mg/dL (Negative) 11/12/21 02:20 Urine Ketones Neg mg/dL (Negative) 11/12/21 02:20 Urine Blood Sm (Negative) 11/12/21 02:20 Urine Nitrite Neg (Negative) 11/12/21 02:20 Urine Bilirubin Neg (Negative) 11/12/21 02:20 Urine Urobilinogen < 2.0 mg/dL (<2.0) 11/12/21 02:20 Ur Leukocyte Esterase Tr (Negative) 11/12/21 02:20 Urine WBC (Auto) 12.0 /HPF (0.0-6.0) H 11/12/21 02:20 Urine RBC (Auto) 4.0 /HPF (0.0-6.0) 11/12/21 02:20 U Epithel Cells (Auto) 9.0 /HPF (0-13.0) 11/12/21 02:20 Urine Bacteria (Auto) 2+ /HPF (Negative) 11/12/21 02:20 Urine Mucus Few /HPF 11/12/21 02:20 Urine Yeast (Budding) 3+ /HPF 11/12/21 02:20 Urine Eosinophils None seen (None Seen) 11/12/21 02:20 Urine Creatinine 189.3 mg/dL (0.1-20.0) H 11/12/21 02:20 Urine Sodium 30 mmol/L 11/12/21 02:20 Hepatitis A IgM Ab Non-reactive (NonReactive) 11/12/21 04:45 Hep Bs Antigen Non-reactive (Negative) 11/12/21 04:45 Hep B Core IgM Ab Non-reactive (NonReactive) 11/12/21 04:45 Hepatitis C Antibody Non-reactive (NonReactive) 11/12/21 04:45 Iglesias/IV: Voiding Method Incontinent Active Medications - Current Medications Current Medications: Generic Name Dose Route Start Last Admin Trade Name Freq PRN Reason Stop Dose Admin Acetaminophen 650 mg 11/11/21 22:40 Acetaminophen 325 Mg Tab PO Q4H PRN Pain MILD(1-3)/Fever >100.5/SOTO Albuterol 2.5 mg 11/11/21 22:40 Albuterol 2.5 Mg/3 Ml Nebu IH Q3HRT PRN Shortness Of Breath Aspirin 325 mg 11/17/21 10:00 11/21/21 10:20 Aspirin 325 Mg Tab FEEDTUBE 325 mg QDAY BAO Administration Atorvastatin Calcium 40 mg 11/17/21 22:00 11/20/21 21:23 Atorvastatin 40 Mg Tab FEEDTUBE 40 mg QHS BAO Administration Dextrose 50 ml 11/18/21 13:00 Dextrose 50% In Water (25gm) 50 Ml Syringe IV Q30MIN PRN Hypoglycemia Protocol Docusate Sodium 100 mg 11/17/21 10:00 11/21/21 10:20 Docusate Sodium 100 Mg/10 Ml Oral Liqd FEEDTUBE 100 mg BID BAO Administration Famotidine 20 mg 11/17/21 10:00 11/21/21 10:20 Famotidine 20 Mg Tab FEEDTUBE 20 mg QDAY BAO Administration Fentanyl 50 mcg 11/11/21 20:56 11/12/21 00:12 Fentanyl 100 Mcg/2 Ml Inj IV 50 mcg Q10MIN PRN Administration ANALGESIA Heparin Sodium (Porcine) 5,000 unit 11/12/21 10:00 11/21/21 10:20 Heparin 5,000 Unit/1 Ml Vial SUB-Q 5,000 unit Q12HR BAO Administration Hydrophilic Ointment 1 applic 11/11/21 20:56 Lip Therapy Vaseline TP Q2HR PRN Dry Lips Fentanyl Citrate 2,000 mcg in 100 mls @ 13.608 mls/hr 11/11/21 21:00 11/21/21 12:19 Fentanyl Drip Premix IV 1 mcg/kg/hr TITR BAO 13.608 mls/hr Administration Protocol 1 MCG/KG/HR NORepinephrine/NS 8 MG-250 ML 8 mg in 250 mls @ 3.75 mls/hr 11/11/21 23:00 11/21/21 11:30 Norepinephrine/Ns 8 Mg-250 Ml (Double Conc) IV 10 mcg/min TITRATE BAO 18.75 mls/hr Titration Protocol 2 MCG/MIN Propofol 1,000 mg in 100 mls @ 8.166 mls/hr 11/13/21 09:00 11/21/21 10:36 Diprivan 10 Mg/Ml IV 5 mcg/kg/min TITR BAO 8.166 mls/hr Titration Protocol 5 MCG/KG/MIN Sodium Chloride 100 mls @ 999 mls/hr 11/21/21 08:11 Nacl 0.9% IV LONG PRN Hypotension Insulin Human Lispro 0 unit 11/12/21 00:00 11/21/21 12:17 Insulin Lispro 100 Unit/Ml SUB-Q Not Given Q6HR [facility] Protocol Lorazepam 2 mg 11/21/21 11:00 Lorazepam 2 Mg/Ml Vial IV Q4H PRN Agitation Multi-Ingred Cream/Lotion/Oil/Oint 1 applic 11/11/21 20:56 Mineral Oil/Petrolatum, White Ophth Oint 3.5 Gm OU Q4HR PRN Dry Eye(s) Ondansetron HCl 4 mg 11/11/21 22:40 Ondansetron 4 Mg/2 Ml Inj IV Q8H PRN Nausea And Vomiting Senna 8.6 mg 11/17/21 10:00 11/21/21 10:20 Sennosides 8.6 Mg Tab FEEDTUBE 8.6 mg Q12H BAO Administration Sodium Chloride 10 ml 11/12/21 10:00 11/21/21 10:21 Sodium Chloride 0.9% 10 Ml Flush Syringe IV 10 ml BID BAO Administration Sodium Chloride 10 ml 11/11/21 22:40 Sodium Chloride 0.9% 10 Ml Flush Syringe IV PRN PRN LINE FLUSH Nutrition/Malnutrition Assess - Dietary Evaluation Nutrition/Malnutrition Findings: Nutrition Notes Start: 11/12/21 16:08 Freq: Status: Active Protocol: Document 11/21/21 12:33 [facility] (Rec: 11/21/21 12:44 [facility] [id number]) Nutrition Notes Initial or Follow up Reassessment Current Diagnosis Acute Kidney Injury,Diabetes, Hypertension,Respiratory Failure Other Pertinent Diagnosis Pneu Current Diet TF - Nepro at 50ml/hr Labs/Tests Na 133 BUN 40 Cr 6.2 Pertinent Medications Colace, Pepcid, Senokot, Levophed gtt, Propofol at 8. 166ml/hr (provides 216 kcal) Height 5 ft 9 in Weight 186.45 kg [place] Body Weight (kg) 72.72 BMI 60.7 Weight change and time frame Current wt obtained from bed scale Weight Status Morbidly Obese Subjective/Other Information Pt receiving HD at time of visit (11:07). Per HD nurse, pt been receiving HD almost daily; she will remove 3L of fluid today; 4L removed this past Sunday. Pt remains on vent support. Per RN, pt last BM was 11/17. Pt tolerating TF. Percent of energy/protein needs met: 100% energy 53% pro Burn Absent Trauma Absent #1 Nutrition Diagnosis Inadequate oral intake Diagnosis Progress(for reassessment Continues documentation) Is patient on ventilator? Yes Is Patient Ambulatory and/or Out of Bed No REE-([facility]-confined to bed) 3230.892 Kcal/Kg value to use for calculation 11 Approximate Energy Requirements Using 1 kcal/Kg Calculation Used for Recommendations 65-70% energy Additional Notes Energy needs: 7585-9901 kcal/ day Pro needs up to 2.5g/kg IBW: 182g/day Fluid needs 1-1.5L/day Nutrition Intervention Nutrition Support: Continue Nepro at 50ml/hr with 200ml water flush q4h. Kcal 2,160 Protein (gm) 97 Carbohydrates (gm) 193 Fat (gm) 115 Fluid (mL) 872 Fiber (gm) 15 Goal #1 TF tolerance Goal #2 TF to meet energy and pro needs as best possible Follow-Up By: 11/28/21 Additional Comments F/U: stable TF, vent status, trach/PEG placement, BM, wt, renal function
--- NOTE | 2021-11-19 11:45 | Progress Note ---
Assessment and Plan 56-year-old -Turkmen male with a BMI of 88. Patient has respiratory insufficiency and has required several reintubations. Is also with recent onset of hemodialysis for renal failure. Surgical consultation is for trach and PEG placement. Patient's girth is too large to fit in the CT scanner. Unable to obtain neck CT or abdominal CT to evaluate distances since they were changed by his morbid obesity. Ultrasound of the neck indicates the distance from the skin to mid trachea is about 3 cm. Ultrasound of the left upper quadrant shows the distance from skin to peritoneum is 9 cm. Anticipate ultrasound-guided core biopsy of thyroid nodule on Sunday we will follow up path with you. Subjective Date of service: 11/19/21 Narrative: Morbidly obese male patient on ventilator unable to wean. Consult was initially for tracheostomy. Ultrasound was used to interrogate the neck determine if distance to the trachea was within reach of our in-house extended length Sh[place]. The ultrasound incidentally found a 2.7 Siner nodule in the lower lobe of the right thyroid lobe. TI-RADS 3 category was given to this initially I discussed the implications of a neoplasm and of the thyroid its management and the presence of a tracheostomy with radiology. Dr. Coley agrees to do a core biopsy at this time with ultrasound guidance to rule out a neoplasm. Recommend doing this prior to placing a tracheostomy. Objective Vital Signs - 12hr 11/18/21 11/19/21 11/19/21 23:53 00:00 00:04 Temperature 98.5 F Pulse Rate 89 87 86 Pulse Rate [ 76 From Monitor] Respiratory 20 20 Rate Blood Pressure 144/84 144/84 O2 Sat by Pulse 94 94 Oximetry 11/19/21 11/19/21 11/19/21 01:00 02:00 03:00 Temperature Pulse Rate 84 88 99 H Pulse Rate [ From Monitor] Respiratory 20 20 22 Rate Blood Pressure 99/63 129/70 130/75 O2 Sat by Pulse 94 92 63 L Oximetry 11/19/21 11/19/21 11/19/21 03:20 04:00 04:10 Temperature 97.7 F 98 F Pulse Rate 79 85 Pulse Rate [ 76 From Monitor] Respiratory 20 Rate Blood Pressure 124/70 124/70 O2 Sat by Pulse 94 92 Oximetry 11/19/21 11/19/21 11/19/21 05:00 06:00 07:00 Temperature Pulse Rate 76 91 H 79 Pulse Rate [ From Monitor] Respiratory 20 20 20 Rate Blood Pressure 104/52 124/80 111/60 O2 Sat by Pulse 94 94 95 Oximetry 11/19/21 11/19/21 11/19/21 07:31 07:45 08:00 Temperature 97.4 F L 97.4 F L Pulse Rate 81 78 Pulse Rate [ 76 From Monitor] Respiratory 20 Rate Blood Pressure 121/68 110/59 O2 Sat by Pulse 96 96 Oximetry 11/19/21 11/19/21 11/19/21 09:00 10:00 11:13 Temperature Pulse Rate 77 72 66 Pulse Rate [ From Monitor] Respiratory 20 20 Rate Blood Pressure 100/49 91/50 112/63 O2 Sat by Pulse 95 96 97 Oximetry 11/19/21 11:31 Temperature 98.9 F Pulse Rate Pulse Rate [ From Monitor] Respiratory Rate Blood Pressure O2 Sat by Pulse Oximetry - Labs 11/18/21 04:00 11/19/21 04:00 Diabetes panel 11/19/21 Range/Units 04:00 Sodium 137 (137-145) mmol/L Potassium 3.9 (3.6-5.0) mmol/L Chloride 99.7 (98-107) mmol/L Carbon Dioxide 25 (22-30) mmol/L BUN 26 H (9-20) mg/dL Creatinine 4.7 H (0.8-1.3) mg/dL Glucose 110 H (75-100) mg/dL Calcium 8.9 (8.4-10.2) mg/dL Triglycerides 105 (2-149) mg/dL Calcium panel 11/19/21 Range/Units 04:00 Calcium 8.9 (8.4-10.2) mg/dL Phosphorus 3.60 (2.5-4.5) mg/dL Pituitary panel 11/19/21 Range/Units 04:00 Sodium 137 (137-145) mmol/L Potassium 3.9 (3.6-5.0) mmol/L Chloride 99.7 (98-107) mmol/L Carbon Dioxide 25 (22-30) mmol/L BUN 26 H (9-20) mg/dL Creatinine 4.7 H (0.8-1.3) mg/dL Glucose 110 H (75-100) mg/dL Calcium 8.9 (8.4-10.2) mg/dL Adrenal panel 11/19/21 Range/Units 04:00 Sodium 137 (137-145) mmol/L Potassium 3.9 (3.6-5.0) mmol/L Chloride 99.7 (98-107) mmol/L Carbon Dioxide 25 (22-30) mmol/L BUN 26 H (9-20) mg/dL Creatinine 4.7 H (0.8-1.3) mg/dL Glucose 110 H (75-100) mg/dL Calcium 8.9 (8.4-10.2) mg/dL
--- NOTE | 2021-11-19 13:48 | Progress Note ---
Assessment and Plan Assessment and Plan Acute respiratory failure Pneumonia Hypoxia KD (acute kidney injury) on top of CKD Hyperkalemia Diabetes Elevated troponin Hypertension Obesity Acidosis Plan -S/p HD yesterday for UF and clearance, UF removed 3L -HD again today for UF and clearance -Will hold off on ordering HD for tomorrow at this time, but will evaluate pt tomorrow in case HD is needed -Assess need for HD on daily basis -Renal function reviewed, SCr level was 4.7 today, yesterday's SCr level was 5.5 -On levophed drip -Renal ultrasound- Left kidney no visualized. No hydronephrosis to right kidney -Renally dose all medications -Monitor I/O's daily -Renal plan reviewed by Dr Ya Subjective Date of service: 11/19/21 Principal diagnosis: Acute respiratory failure, Interval history: Pt seen in ICU bed, intubated on propofol, fentanyl, and levophed drips Objective - Vital Signs Vital signs: Vital Signs - 12hr 11/19/21 11/19/21 11/19/21 02:00 03:00 03:20 Temperature 97.7 F Pulse Rate 88 99 H Pulse Rate [ From Monitor] Respiratory 20 22 Rate Blood Pressure 129/70 130/75 O2 Sat by Pulse 92 63 L Oximetry 11/19/21 11/19/21 11/19/21 04:00 04:10 05:00 Temperature 98 F Pulse Rate 79 85 76 Pulse Rate [ 76 From Monitor] Respiratory 20 20 Rate Blood Pressure 124/70 124/70 104/52 O2 Sat by Pulse 94 92 94 Oximetry 11/19/21 11/19/21 11/19/21 06:00 07:00 07:31 Temperature Pulse Rate 91 H 79 81 Pulse Rate [ From Monitor] Respiratory 20 20 Rate Blood Pressure 124/80 111/60 121/68 O2 Sat by Pulse 94 95 96 Oximetry 11/19/21 11/19/21 11/19/21 07:45 08:00 09:00 Temperature 97.4 F L 97.4 F L Pulse Rate 78 77 Pulse Rate [ 76 From Monitor] Respiratory 20 20 Rate Blood Pressure 110/59 100/49 O2 Sat by Pulse 96 95 Oximetry 11/19/21 11/19/21 11/19/21 10:00 11:00 11:13 Temperature Pulse Rate 72 68 66 Pulse Rate [ From Monitor] Respiratory 20 20 Rate Blood Pressure 91/50 112/63 112/63 O2 Sat by Pulse 96 97 97 Oximetry 11/19/21 11/19/21 11/19/21 11:31 12:00 13:00 Temperature 98.9 F Pulse Rate 67 65 Pulse Rate [ 67 From Monitor] Respiratory 20 20 Rate Blood Pressure 99/54 95/49 O2 Sat by Pulse 96 96 Oximetry - General Appearance General appearance: intubated EENT: ATNC Respiratory: Present: Decreased Breath Sounds Cardiology: regular, S1S2, other (ACCESS: Right IJ Vas Catheter intact) Gastrointestinal: normoactive bowel sounds (orogastric tube noted) Integumentary: warm and dry Neurologic: other (intubated) Musculoskeletal: other (2+ edema to BLE) - Lab 11/18/21 04:00 11/19/21 04:00 Most recent lab results ABG pH 7.467 pH Units (7.350-7.450) H 11/18/21 04:35 ABG pCO2 37.1 mm Hg 11/18/21 04:35 ABG pO2 110.0 mm Hg (80.0-90.0) H 11/18/21 04:35 ABG HCO3 26.2 mmol/L (20.0-26.0) H 11/18/21 04:35 ABG O2 Saturation 98.1 % (95.0-99.0) 11/18/21 04:35 Calcium 8.9 mg/dL (8.4-10.2) 11/19/21 04:00 Phosphorus 3.60 mg/dL (2.5-4.5) 11/19/21 04:00 Magnesium 1.80 mg/dL (1.7-2.3) 11/19/21 04:00 Urine Creatinine 189.3 mg/dL (0.1-20.0) H 11/12/21 02:20 Urine Sodium 30 mmol/L 11/12/21 02:20 Medications & Allergies - Medications Allergies/Adverse Reactions: Allergies No Known Allergies Allergy (Verified 11/11/21 20:58) Active Medications: Generic Name Dose Route Start Last Admin Trade Name Freq PRN Reason Stop Dose Admin Acetaminophen 650 mg 11/11/21 22:40 Acetaminophen 325 Mg Tab PO Q4H PRN Pain MILD(1-3)/Fever >100.5/SOTO Albuterol 2.5 mg 11/11/21 22:40 Albuterol 2.5 Mg/3 Ml Nebu IH Q3HRT PRN Shortness Of Breath Aspirin 325 mg 11/17/21 10:00 11/19/21 09:35 Aspirin 325 Mg Tab FEEDTUBE 325 mg QDAY BAO Administration Atorvastatin Calcium 40 mg 11/17/21 22:00 11/18/21 21:45 Atorvastatin 40 Mg Tab FEEDTUBE 40 mg QHS BAO Administration Dextrose 50 ml 11/18/21 13:00 Dextrose 50% In Water (25gm) 50 Ml Syringe IV Q30MIN PRN Hypoglycemia Protocol Docusate Sodium 100 mg 11/17/21 10:00 11/19/21 09:35 Docusate Sodium 100 Mg/10 Ml Oral Liqd FEEDTUBE 100 mg BID BAO Administration Famotidine 20 mg 11/17/21 10:00 11/19/21 09:35 Famotidine 20 Mg Tab FEEDTUBE 20 mg QDAY BAO Administration Fentanyl 50 mcg 11/11/21 20:56 11/12/21 00:12 Fentanyl 100 Mcg/2 Ml Inj IV 50 mcg Q10MIN PRN Administration ANALGESIA Heparin Sodium (Porcine) 5,000 unit 11/12/21 10:00 11/19/21 09:35 Heparin 5,000 Unit/1 Ml Vial SUB-Q 5,000 unit Q12HR BAO Administration Hydrophilic Ointment 1 applic 11/11/21 20:56 Lip Therapy Vaseline TP Q2HR PRN Dry Lips Fentanyl Citrate 2,000 mcg in 100 mls @ 13.608 mls/hr 11/11/21 21:00 11/19/21 13:07 Fentanyl Drip Premix IV 1 mcg/kg/hr TITR BAO 13.608 mls/hr Titration Protocol 1 MCG/KG/HR NORepinephrine/NS 8 MG-250 ML 8 mg in 250 mls @ 3.75 mls/hr 11/11/21 23:00 11/19/21 13:13 Norepinephrine/Ns 8 Mg-250 Ml (Double Conc) IV 6 mcg/min TITRATE BAO 11.25 mls/hr Titration Protocol 2 MCG/MIN Propofol 1,000 mg in 100 mls @ 8.166 mls/hr 11/13/21 09:00 11/19/21 11:32 Diprivan 10 Mg/Ml IV 10 mcg/kg/min TITR BAO 16.332 mls/hr Titration Protocol 5 MCG/KG/MIN Sodium Chloride 100 mls @ 999 mls/hr 11/16/21 10:22 Nacl 0.9% IV LONG PRN Hypotension Insulin Human Lispro 0 unit 11/12/21 00:00 11/19/21 11:33 Insulin Lispro 100 Unit/Ml SUB-Q Not Given Q6HR BAO Protocol Multi-Ingred Cream/Lotion/Oil/Oint 1 applic 11/11/21 20:56 Mineral Oil/Petrolatum, White Ophth Oint 3.5 Gm OU Q4HR PRN Dry Eye(s) Ondansetron HCl 4 mg 11/11/21 22:40 Ondansetron 4 Mg/2 Ml Inj IV Q8H PRN Nausea And Vomiting Senna 8.6 mg 11/17/21 10:00 11/19/21 09:35 Sennosides 8.6 Mg Tab FEEDTUBE 8.6 mg Q12H BAO Administration Sodium Chloride 10 ml 11/12/21 10:00 11/19/21 09:36 Sodium Chloride 0.9% 10 Ml Flush Syringe IV 10 ml BID BAO Administration Sodium Chloride 10 ml 11/11/21 22:40 Sodium Chloride 0.9% 10 Ml Flush Syringe IV PRN PRN LINE FLUSH
[2021-11-20] MEDS: NORepinephrine/NS 8 MG-250 ML 8 MG/250 ML INFUS..BTL IV SCH (00:20)
[2021-11-20] MEDS: fentaNYL DRIP Premix 2,000 MCG/100 ML BAG IV SCH ×4 (02:07→18:39)
[2021-11-20 04:54] LABS: Calcium 8.9 mg/dL (8.4-10.2)
[2021-11-20] MEDS: INSULIN LISPRO 100 UNIT/ML SUB-Q SCH ×3 (06:42→18:25)
--- NOTE | 2021-11-20 07:31 | Progress Note ---
Assessment and Plan 56-year-old -Monegas[place] male with a BMI of 88. Patient has respiratory insufficiency and has required several reintubations. Is also with recent onset of hemodialysis for renal failure. Surgical consultation is for trach and PEG placement. Patient's girth is too large to fit in the CT scanner. Unable to obtain neck CT or abdominal CT to evaluate distances since they were changed by his morbid obesity. Ultrasound of the neck indicates the distance from the skin to mid trachea is about 3 cm. Ultrasound of the left upper quadrant shows the distance from skin to peritoneum is 9 cm. In hospital bear and jazmin will likely cover the distance. Peg will likely need done with laprascopic assistance. Anticipate ultrasound-guided core biopsy of thyroid nodule on Sunday we will follow up path with you. Subjective Date of service: 11/20/21 Patient Reports: Positive: no new complaints Objective Vital Signs - 12hr 11/19/21 11/19/21 11/19/21 19:57 20:00 21:00 Temperature 98.4 F Pulse Rate 77 92 H Pulse Rate [ 79 From Monitor] Respiratory 19 19 Rate Blood Pressure 127/71 124/74 O2 Sat by Pulse 100 97 Oximetry 11/19/21 11/19/21 11/19/21 22:00 22:34 23:00 Temperature Pulse Rate 64 64 67 Pulse Rate [ From Monitor] Respiratory 20 20 20 Rate Blood Pressure 130/73 133/73 135/75 O2 Sat by Pulse 99 99 99 Oximetry 11/19/21 11/20/21 11/20/21 23:39 00:00 01:00 Temperature 99 F Pulse Rate 66 67 69 Pulse Rate [ 77 From Monitor] Respiratory 20 20 Rate Blood Pressure 127/71 123/70 122/69 O2 Sat by Pulse 99 99 99 Oximetry 11/20/21 11/20/21 11/20/21 02:00 03:00 03:37 Temperature 99.4 F Pulse Rate 66 69 Pulse Rate [ From Monitor] Respiratory 20 20 Rate Blood Pressure 126/73 138/75 O2 Sat by Pulse 98 98 Oximetry 11/20/21 11/20/21 11/20/21 04:00 05:00 06:00 Temperature Pulse Rate 71 85 93 H Pulse Rate [ 73 From Monitor] Respiratory 20 24 20 Rate Blood Pressure 137/76 143/79 149/84 O2 Sat by Pulse 96 84 95 Oximetry 11/20/21 07:00 Temperature Pulse Rate 87 Pulse Rate [ From Monitor] Respiratory 20 Rate Blood Pressure 161/91 O2 Sat by Pulse 100 Oximetry - Labs 11/18/21 04:00 11/20/21 04:00 Diabetes panel 11/20/21 Range/Units 04:00 Sodium 134 L (137-145) mmol/L Potassium 3.7 (3.6-5.0) mmol/L Chloride 94.4 L (98-107) mmol/L Carbon Dioxide 26 (22-30) mmol/L BUN 25 H (9-20) mg/dL Creatinine 4.6 H (0.8-1.3) mg/dL Glucose 117 H (75-100) mg/dL Calcium 8.9 (8.4-10.2) mg/dL Calcium panel 11/20/21 Range/Units 04:00 Calcium 8.9 (8.4-10.2) mg/dL Phosphorus 2.80 D (2.5-4.5) mg/dL Pituitary panel 11/20/21 Range/Units 04:00 Sodium 134 L (137-145) mmol/L Potassium 3.7 (3.6-5.0) mmol/L Chloride 94.4 L (98-107) mmol/L Carbon Dioxide 26 (22-30) mmol/L BUN 25 H (9-20) mg/dL Creatinine 4.6 H (0.8-1.3) mg/dL Glucose 117 H (75-100) mg/dL Calcium 8.9 (8.4-10.2) mg/dL Adrenal panel 11/20/21 Range/Units 04:00 Sodium 134 L (137-145) mmol/L Potassium 3.7 (3.6-5.0) mmol/L Chloride 94.4 L (98-107) mmol/L Carbon Dioxide 26 (22-30) mmol/L BUN 25 H (9-20) mg/dL Creatinine 4.6 H (0.8-1.3) mg/dL Glucose 117 H (75-100) mg/dL Calcium 8.9 (8.4-10.2) mg/dL
[2021-11-20] MEDS: SENNOSIDES 8.6 MG TAB FEEDTUBE SCH ×2 (09:44→21:24)
[2021-11-20] MEDS: HEPARIN 5,000 UNIT/1 ML VIAL SUB-Q SCH ×2 (09:44→21:23)
[2021-11-20] MEDS: FAMOTIDINE 20 MG TAB FEEDTUBE SCH (09:44)
[2021-11-20] MEDS: DOCUSATE SODIUM 100 MG/10 ML ORAL LIQD FEEDTUBE SCH ×2 (09:44→21:23)
[2021-11-20] MEDS: ASPIRIN 325 MG TAB FEEDTUBE SCH (09:44)
--- NOTE | 2021-11-20 11:13 | Progress Note ---
<RUFUS ALVAREZ - Last Filed: 11/20/21 15:48> Assessment and Plan Assessment and plan: This is a 56-year-old male with DM, HTN, obesity, currently bedbound and past intubations admitted with acute hypoxic respiratory failure and acute renal failure Hospital course to date: 11/12: Overnight patient received a dialysis catheter and was initiated on dialysis. Iglesias catheter was also placed. Antibiotics discontinued. proBNP pending. Decrease in FiO2 related to ABG. Echocardiogram pending. Patient given X1 for potassium 5.5 and nutrition consulted for tube feedings. updated brother at bedside 11/13: Propofol letter for sedation as patient seems restless on the ventilator only on fentanyl. HD scheduled for today. [facility] plans to conduct PSV possibly Sunday. 11/14: Tolerated HD overnight, 2L removed. Plan for possible HD again today. Patient is tolerating PST today on low dose fentanyl, plan for possible extubation tomorrow. 11/15: SANA overnight. Remains on the vent and on low dose sedation. Continue to tolerate HD. Plan for PST and possible extubation today. 11/16: Failed extubation yesterday and had to be emergently reintubated due to hypoxia and decreased LOC. Patient is stable on the vent this am, remains on low dose sedation, while awake and following commands. CCM recommendations noted due to patient's body habitus, he might need to be trach/Peg. CT neck was canceled due to weight limit. General Surgery consulted for Trach/PEG eval. 11/17: Remains on the vent, sedation increased overnight due to increased agitation and low dose pressors were initiated. Patient tolerated HD yesterday, plan for HD again today. Plan for possible trach/PEG vs possible transfer for ENT eval for trach/PEG. Awaiting on General surgery recommendations. 11/18: SANA overnight. D/w CCM plan for US thyroid biopsy per General Surgery recommendation due thyroid nodule to r/o malignancy. Patient remains on low dose levophed gtt. Continue HD per Nephro. 11/19: Periods of low SPO2 overnight which resolved with deep suctioning. Patient remains on low dose vent setting, no respiratory distress noted this am. Patient remains on sedation and low dose levophed, MAP in the 70s, continue to wean pressors for MAP above 65. Pending US biopsy of the thyroid for possible trach per General Surgery. 4/3: SANA overnight. Remains on low dose pressors, continue to wean for MAP above 65. Pending US guided thyroid biopsy for possible trach/PEG per General Surgery. Neuro: Acute metabolic encephalopathy -Intubated on Fentanyl and prop drip, RASS 0 -RASS goal 0 to -1 -Avoid delirium -Reorientation as needed -Maintain sleep-wake cycle -aspiration/seizure precautions -As needed analgesia -Patient will open eyes to verbal stimuli -Consider neurology consult Cardiac: h/o HTN, elevated troponins -Cardiology consulted, appreciate recommendations -Blood pressure monitoring per protocol -S/p vasopressor support -Echocardiogram shows ejection fraction greater than 70 Respiratory: Acute hypoxic respiratory failure, ? [facility] consulted, appreciate recommendations -Intubated in the emergency department on 11/04 -11/15 Failed extubation had to be emergently reintubated due to hypoxia and decreased LOC -A.m. vent settings:AC/PRVC rate 20, tidal 550, PEEP 8, FiO2 30% -See RT notes for titration -A.m. ABG and CXR noted -VAP bundle -SPO2 monitoring -Per [facility] patient might need trach/PEG -General Surgery consulted, pending US guided thyroid biopsy. GI: Protin calorie malnutrition, Morbid obesity -Continue enteral nutrition -NTR consulted for tube feedings -BR: Colace : Acute Renal Failure -FeNa 1.04% indicating either ATN or prerenal state -Nephrology consulted, appreciate recommendations -Vas-Cath placed at HD initiated 11/12 -HD per nephrology -Strict intake and output -Renally dose medications -Avoid nephrotoxic medications -Daily weights -Renal ultrasound pending -Trend BMP -Repeat magnesium Endo: h/o DM -Avoid hypoglycemia -SSI -Accu-Cheks q. 6 -Hemoglobin A1c 5.7 GI/DVT Prophylaxis - PPI- Pepcid - Heparin SubQ The high probability of a clinically significant, sudden or life threatening det erioration of the [multi] system(s) required my full and direct attention, intervention and personal management. The aggregate critical care time was [60] minutes. This time is in addition to time spent performing reported procedures but includes the following: [x] Data Review and interpretation [x] Patient assessment and monitoring of vital signs [x] Documentation [x] Medication orders and management Disposition Plan: icu Total Time Spent with Patient (Minutes): 60 History Interval history: Patient seen and examined at the bedside. Remains intubated and sedated on propofol and fentanyl. Still on low dose levophed this am. Tolerated HD yesterday, 4L removed. SANA overnight Hospitalist Physical - Constitutional Vitals: Temp Pulse Resp BP Pulse Ox 98.2 F 89 20 114/73 97 11/20/21 08:00 11/20/21 10:00 11/20/21 10:00 11/20/21 10:00 11/20/21 10:00 General appearance: Present: no acute distress, obese, other (intubated and sedated, easily arousable and following commands) - EENT Eyes: Present: PERRL ENT: hearing intact - Neck Neck: Present: normal ROM - Respiratory Respiratory effort: normal Respiratory: bilateral: rhonchi - Cardiovascular Rhythm: regular Heart Sounds: Present: S1 & S2 - Extremities Extremities: no ischemia, pulses intact, pulses symmetrical Extremity abnormal: edema - Peripheral Assessment Generalized Edema Type: Non-pitting Edema Degree: 2+ Capillary Refill: < 3 seconds Skin Temperature: Warm Peripheral Pulses: within normal limits - Abdominal General gastrointestinal: soft, non-distended, normal bowel sounds - Integumentary Integumentary: Present: warm, dry - Psychiatric Psychiatric: appropriate mood/affect, cooperative, other (intubated and sedated, easily arousable and following commands) - Neurologic Neurologic: other (intubated and sedated, easily arousable and following commands) - Allied Health Allied health notes reviewed: nursing HEART Score - HEART Score Troponin: Troponin T 0.313 ng/mL (0.00-0.029) H* 11/12/21 22:30 Results - Labs CBC & Chem 7: 11/18/21 04:00 11/20/21 04:00 Labs: Laboratory Last Values WBC 10.9 K/mm3 (4.5-11.0) 11/18/21 04:00 RBC 2.88 M/mm3 (3.65-5.03) L 11/18/21 04:00 Hgb 7.8 gm/dl (11.8-15.2) L 11/18/21 04:00 Hct 25.3 % (35.5-45.6) L 11/18/21 04:00 MCV 88 fl (84-94) 11/18/21 04:00 MCH 27 pg (28-32) L 11/18/21 04:00 MCHC 31 % (32-34) L 11/18/21 04:00 RDW 18.7 % (13.2-15.2) H 11/18/21 04:00 Plt Count 229 K/mm3 (140-440) 11/18/21 04:00 Lymph % (Auto) 10.0 % (13.4-35.0) L 11/11/21 19:49 Navarro % (Auto) 8.8 % (0.0-7.3) H 11/11/21 19:49 Eos % (Auto) 0.9 % (0.0-4.3) 11/11/21 19:49 Baso % (Auto) 0.5 % (0.0-1.8) 11/11/21 19:49 Lymph # (Auto) 1.1 K/mm3 (1.2-5.4) L 11/11/21 19:49 Navarro # (Auto) 1.0 K/mm3 (0.0-0.8) H 11/11/21 19:49 Eos # (Auto) 0.1 K/mm3 (0.0-0.4) 11/11/21 19:49 Baso # (Auto) 0.1 K/mm3 (0.0-0.1) 11/11/21 19:49 Add Manual Diff Complete 11/12/21 06:55 Total Counted 100 11/12/21 06:55 Seg Neutrophils % Children[facility] Minister 11/12/21 06:55 Seg Neuts % (Manual) 89.0 % (40.0-70.0) H 11/12/21 06:55 Band Neutrophils % 5.0 % 11/12/21 06:55 Lymphocytes % (Manual) 0 % (13.4-35.0) L 11/12/21 06:55 Reactive Lymphs % (Man) 0 % 11/12/21 06:55 Monocytes % (Manual) 3.0 % (0.0-7.3) 11/12/21 06:55 Eosinophils % (Manual) 0 % (0.0-4.3) 11/12/21 06:55 Basophils % (Manual) 0 % (0.0-1.8) 11/12/21 06:55 Metamyelocytes % 3.0 % 11/12/21 06:55 Myelocytes % 0 % 11/12/21 06:55 Promyelocytes % 0 % 11/12/21 06:55 Blast Cells % 0 % 11/12/21 06:55 Nucleated RBC % Not Reportable 11/12/21 06:55 Seg Neutrophils # 9.2 K/mm3 (1.8-7.7) H 11/11/21 19:49 Seg Neutrophils # Man 18.2 K/mm3 (1.8-7.7) H 11/12/21 06:55 Band Neutrophils # 1.0 K/mm3 11/12/21 06:55 Lymphocytes # (Manual) 0.0 K/mm3 (1.2-5.4) L 11/12/21 06:55 Abs React Lymphs (Man) 0.0 K/mm3 11/12/21 06:55 Monocytes # (Manual) 0.6 K/mm3 (0.0-0.8) 11/12/21 06:55 Eosinophils # (Manual) 0.0 K/mm3 (0.0-0.4) 11/12/21 06:55 Basophils # (Manual) 0.0 K/mm3 (0.0-0.1) 11/12/21 06:55 Metamyelocytes # 0.6 K/mm3 11/12/21 06:55 Myelocytes # 0.0 K/mm3 11/12/21 06:55 Promyelocytes # 0.0 K/mm3 11/12/21 06:55 Blast Cells # 0.0 K/mm3 11/12/21 06:55 WBC Morphology Not Reportable 11/12/21 06:55 Hypersegmented Neuts Not Reportable 11/12/21 06:55 Hyposegmented Neuts Not Reportable 11/12/21 06:55 Hypogranular Neuts Not Reportable 11/12/21 06:55 Smudge Cells Not Reportable 11/12/21 06:55 Toxic Granulation 1+ 11/12/21 06:55 Toxic Vacuolation Not Reportable 11/12/21 06:55 Dohle Bodies Not Reportable 11/12/21 06:55 Pelger-Huet Anomaly Not Reportable 11/12/21 06:55 Lissa Rods Not Reportable 11/12/21 06:55 Platelet Estimate Consistent w auto 11/12/21 06:55 Clumped Platelets Not Reportable 11/12/21 06:55 Plt Clumps, EDTA Not Reportable 11/12/21 06:55 Large Platelets Not Reportable 11/12/21 06:55 Giant Platelets Not Reportable 11/12/21 06:55 Platelet Satelliting Not Reportable 11/12/21 06:55 Plt Morphology Comment Not Reportable 11/12/21 06:55 RBC Morphology Normal 11/12/21 06:55 Dimorphic RBCs Not Reportable 11/12/21 06:55 Polychromasia Not Reportable 11/12/21 06:55 Hypochromasia Not Reportable 11/12/21 06:55 Poikilocytosis Not Reportable 11/12/21 06:55 Anisocytosis Not Reportable 11/12/21 06:55 Microcytosis Not Reportable 11/12/21 06:55 Macrocytosis Not Reportable 11/12/21 06:55 Spherocytes Not Reportable 11/12/21 06:55 Pappenheimer Bodies Not Reportable 11/12/21 06:55 Sickle Cells Not Reportable 11/12/21 06:55 Target Cells Not Reportable 11/12/21 06:55 Tear Drop Cells Not Reportable 11/12/21 06:55 Ovalocytes Not Reportable 11/12/21 06:55 Helmet Cells Not Reportable 11/12/21 06:55 Shea-Shawneeland Bodies Not Reportable 11/12/21 06:55 Ashby Rings Not Reportable 11/12/21 06:55 Peralta Cells Not Reportable 11/12/21 06:55 Bite Cells Not Reportable 11/12/21 06:55 Crenated Cell Not Reportable 11/12/21 06:55 Elliptocytes Not Reportable 11/12/21 06:55 Acanthocytes (Spur) Not Reportable 11/12/21 06:55 Rouleaux Not Reportable 11/12/21 06:55 Hemoglobin C Crystals Not Reportable 11/12/21 06:55 Schistocytes Not Reportable 11/12/21 06:55 Malaria parasites Not Reportable 11/12/21 06:55 Nam Bodies Not Reportable 11/12/21 06:55 Hem Pathologist Commnt No 11/12/21 06:55 ABG pH 7.467 pH Units (7.350-7.450) H 11/18/21 04:35 ABG pCO2 37.1 mm Hg 11/18/21 04:35 ABG pO2 110.0 mm Hg (80.0-90.0) H 11/18/21 04:35 ABG HCO3 26.2 mmol/L (20.0-26.0) H 11/18/21 04:35 ABG O2 Saturation 98.1 % (95.0-99.0) 11/18/21 04:35 ABG O2 Content 11.3 (0.0-44) 11/18/21 04:35 ABG Base Excess 2.4 mmol/L (-2.0-3.0) 11/18/21 04:35 ABG Hemoglobin 8.1 gm/dl (14.0-18.0) L 11/18/21 04:35 ABG Carboxyhemoglobin 1.2 % (0.0-5.0) 11/18/21 04:35 ABG Methemoglobin 0.4 % (0.0-1.5) 11/18/21 04:35 Oxyhemoglobin 96.5 % (95.0-99.0) 11/18/21 04:35 FiO2 30 % 11/18/21 04:35 Sodium 134 mmol/L (137-145) L 11/20/21 04:00 Potassium 3.7 mmol/L (3.6-5.0) 11/20/21 04:00 Chloride 94.4 mmol/L (98-107) L 11/20/21 04:00 Carbon Dioxide 26 mmol/L (22-30) 11/20/21 04:00 Anion Gap 17 mmol/L 11/20/21 04:00 BUN 25 mg/dL (9-20) H 11/20/21 04:00 Creatinine 4.6 mg/dL (0.8-1.3) H 11/20/21 04:00 Estimated GFR 16 ml/min 11/20/21 04:00 BUN/Creatinine Ratio 5 % 11/20/21 04:00 Glucose 117 mg/dL (75-100) H 11/20/21 04:00 POC Glucose 105 mg/dL (70-105) 11/20/21 05:32 Hemoglobin A1c 5.7 % (4-6) 11/12/21 06:55 Lactic Acid 0.90 mmol/L (0.7-2.0) 11/11/21 19:49 Calcium 8.9 mg/dL (8.4-10.2) 11/20/21 04:00 Phosphorus 2.80 mg/dL (2.5-4.5) D 11/20/21 04:00 Magnesium 1.70 mg/dL (1.7-2.3) 11/20/21 04:00 Iron 24 ug/dL (49-181) L 11/11/21 23:29 TIBC 157 mcg/dL (250-450) L 11/11/21 23:29 Total Bilirubin 0.40 mg/dL (0.1-1.2) 11/11/21 19:49 AST 10 units/L (5-40) 11/11/21 19:49 ALT 7 units/L (7-56) 11/11/21 19:49 Alkaline Phosphatase 111 units/L (35-129) 11/11/21 19:49 Total Creatine Kinase 268 units/L (55-170) H 11/11/21 23:29 Troponin T 0.313 ng/mL (0.00-0.029) H* 11/12/21 22:30 NT-Pro-B Natriuret Pep 3674 pg/mL (0-900) H 11/12/21 Unknown Total Protein 9.1 g/dL (6.3-8.2) H 11/11/21 19:49 Albumin 3.0 g/dL (3.9-5) L 11/11/21 19:49 Albumin/Globulin Ratio 0.5 % 11/11/21 19:49 Triglycerides 105 mg/dL (2-149) 11/19/21 04:00 Cholesterol 146 mg/dL (50-199) 11/11/21 19:49 LDL Cholesterol Direct 85 mg/dL (50-130) 11/11/21 19:49 HDL Cholesterol 43 mg/dL (40-59) 11/11/21 19:49 Cholesterol/HDL Ratio 3.39 % 11/11/21 19:49 PTH Intact 1174 pg/mL (15-65) H 11/11/21 23:29 Urine Color Yellow (Yellow) 11/12/21 02:20 Urine Turbidity Cloudy (Clear) 11/12/21 02:20 Urine pH 5.0 (5.0-7.0) 11/12/21 02:20 Ur Specific [place] 1.013 (1.003-1.030) 11/12/21 02:20 Urine Protein >500 mg/dL (Negative) 11/12/21 02:20 Urine Glucose (UA) Neg mg/dL (Negative) 11/12/21 02:20 Urine Ketones Neg mg/dL (Negative) 11/12/21 02:20 Urine Blood Sm (Negative) 11/12/21 02:20 Urine Nitrite Neg (Negative) 11/12/21 02:20 Urine Bilirubin Neg (Negative) 11/12/21 02:20 Urine Urobilinogen < 2.0 mg/dL (<2.0) 11/12/21 02:20 Ur Leukocyte Esterase Tr (Negative) 11/12/21 02:20 Urine WBC (Auto) 12.0 /HPF (0.0-6.0) H 11/12/21 02:20 Urine RBC (Auto) 4.0 /HPF (0.0-6.0) 11/12/21 02:20 U Epithel Cells (Auto) 9.0 /HPF (0-13.0) 11/12/21 02:20 Urine Bacteria (Auto) 2+ /HPF (Negative) 11/12/21 02:20 Urine Mucus Few /HPF 11/12/21 02:20 Urine Yeast (Budding) 3+ /HPF 11/12/21 02:20 Urine Eosinophils None seen (None Seen) 11/12/21 02:20 Urine Creatinine 189.3 mg/dL (0.1-20.0) H 11/12/21 02:20 Urine Sodium 30 mmol/L 11/12/21 02:20 Hepatitis A IgM Ab Non-reactive (NonReactive) 11/12/21 04:45 Hep Bs Antigen Non-reactive (Negative) 11/12/21 04:45 Hep B Core IgM Ab Non-reactive (NonReactive) 11/12/21 04:45 Hepatitis C Antibody Non-reactive (NonReactive) 11/12/21 04:45 Iglesias/IV: Voiding Method Incontinent Active Medications - Current Medications Current Medications: Generic Name Dose Route Start Last Admin Trade Name Freq PRN Reason Stop Dose Admin Acetaminophen 650 mg 11/11/21 22:40 Acetaminophen 325 Mg Tab PO Q4H PRN Pain MILD(1-3)/Fever >100.5/SOTO Albuterol 2.5 mg 11/11/21 22:40 Albuterol 2.5 Mg/3 Ml Nebu IH Q3HRT PRN Shortness Of Breath Aspirin 325 mg 11/17/21 10:00 11/20/21 09:44 Aspirin 325 Mg Tab FEEDTUBE 325 mg QDAY BAO Administration Atorvastatin Calcium 40 mg 11/17/21 22:00 11/19/21 21:44 Atorvastatin 40 Mg Tab FEEDTUBE 40 mg QHS BAO Administration Dextrose 50 ml 11/18/21 13:00 Dextrose 50% In Water (25gm) 50 Ml Syringe IV Q30MIN PRN Hypoglycemia Protocol Docusate Sodium 100 mg 11/17/21 10:00 11/20/21 09:44 Docusate Sodium 100 Mg/10 Ml Oral Liqd FEEDTUBE 100 mg BID BAO Administration Famotidine 20 mg 11/17/21 10:00 11/20/21 09:44 Famotidine 20 Mg Tab FEEDTUBE 20 mg QDAY BAO Administration Fentanyl 50 mcg 11/11/21 20:56 11/12/21 00:12 Fentanyl 100 Mcg/2 Ml Inj IV 50 mcg Q10MIN PRN Administration ANALGESIA Heparin Sodium (Porcine) 5,000 unit 11/12/21 10:00 11/20/21 09:44 Heparin 5,000 Unit/1 Ml Vial SUB-Q 5,000 unit Q12HR BAO Administration Hydrophilic Ointment 1 applic 11/11/21 20:56 Lip Therapy Vaseline TP Q2HR PRN Dry Lips Fentanyl Citrate 2,000 mcg in 100 mls @ 13.608 mls/hr 11/11/21 21:00 11/20/21 05:18 Fentanyl Drip Premix IV 1 mcg/kg/hr TITR BAO 13.608 mls/hr Administration Protocol 1 MCG/KG/HR NORepinephrine/NS 8 MG-250 ML 8 mg in 250 mls @ 3.75 mls/hr 11/11/21 23:00 11/20/21 10:40 Norepinephrine/Ns 8 Mg-250 Ml (Double Conc) IV 2 mcg/min TITRATE BAO 3.75 mls/hr Titration Protocol 2 MCG/MIN Propofol 1,000 mg in 100 mls @ 8.166 mls/hr 11/13/21 09:00 11/20/21 06:41 Diprivan 10 Mg/Ml IV 10 mcg/kg/min TITR BAO 16.332 mls/hr Administration Protocol 5 MCG/KG/MIN Sodium Chloride 100 mls @ 999 mls/hr 11/16/21 10:22 Nacl 0.9% IV LONG PRN Hypotension Insulin Human Lispro 0 unit 11/12/21 00:00 11/20/21 06:42 Insulin Lispro 100 Unit/Ml SUB-Q Not Given Q6HR BAO Protocol Multi-Ingred Cream/Lotion/Oil/Oint 1 applic 11/11/21 20:56 Mineral Oil/Petrolatum, White Ophth Oint 3.5 Gm OU Q4HR PRN Dry Eye(s) Ondansetron HCl 4 mg 11/11/21 22:40 Ondansetron 4 Mg/2 Ml Inj IV Q8H PRN Nausea And Vomiting Senna 8.6 mg 11/17/21 10:00 11/20/21 09:44 Sennosides 8.6 Mg Tab FEEDTUBE 8.6 mg Q12H BAO Administration Sodium Chloride 10 ml 11/12/21 10:00 11/20/21 09:45 Sodium Chloride 0.9% 10 Ml Flush Syringe IV Not Given BID BAO Sodium Chloride 10 ml 11/11/21 22:40 Sodium Chloride 0.9% 10 Ml Flush Syringe IV PRN PRN LINE FLUSH Nutrition/Malnutrition Assess - Dietary Evaluation Nutrition/Malnutrition Findings: Nutrition Notes Start: 11/12/21 16:08 Freq: Status: Active Protocol: Document 11/14/21 15:39 [facility] (Rec: 11/14/21 15:45 [facility] [id number]) Nutrition Notes Initial or Follow up Reassessment Current Diagnosis Diabetes,Hypertension, Respiratory Failure Other Pertinent Diagnosis Acute renal failure (on HD), pneu Current Diet TF - Nepro at 50ml/hr Labs/Tests K 3 BUN 41 Cr 7 Mg 1.6 Pertinent Medications Mg sulfate x 1 dose, Levophed gtt, 20mEq KCl x 1 dose Height 5 ft 9 in Weight 272.2 kg [place] Body Weight (kg) 72.72 BMI 88.6 Weight Status Morbidly Obese Subjective/Other Information Observed Nepro infusing at goal rate. Per RN, pt tolerating TF. Pt remains on vent support. Percent of energy/protein needs met: 99% energy 53% pro Burn Absent Trauma Absent #1 Nutrition Diagnosis Inadequate oral intake Diagnosis Progress(for reassessment Continues documentation) Is patient on ventilator? Yes Is Patient Ambulatory and/or Out of Bed No REE-([facility]-confined to bed) 4258.860 Kcal/Kg value to use for calculation 8 Approximate Energy Requirements Using 2178 kcal/Kg Additional Notes Pro needs up to 2.5g/kg IBW: 182g/day Fluid needs 1-1.5L/day Nutrition Intervention Nutrition Support: Continue Nepro at 50ml/hr with 200ml water flush q4h. Kcal 2,160 Protein (gm) 97 Carbohydrates (gm) 193 Fat (gm) 115 Fluid (mL) 872 Fiber (gm) 15 Goal #1 TF tolerance Goal #2 TF to meet at least 75% energy and pro needs Follow-Up By: 11/21/21 Additional Comments F/U: stable TF, vent status, wt <ERIN SALVADOR - Last Filed: 11/21/21 13:32> Assessment and Plan Assessment and plan: I saw and evaluated the patient. Discussed with the nurse practitioner and agree with their findings and plan as documented in this note. Hospitalist Physical - Constitutional Vitals: Temp Pulse Resp BP Pulse Ox 99.3 F 105 H 20 119/72 92 11/21/21 12:00 11/21/21 12:00 11/21/21 12:00 11/21/21 12:00 11/21/21 12:00 HEART Score - HEART Score Troponin: Troponin T 0.313 ng/mL (0.00-0.029) H* 11/12/21 22:30 Results - Labs CBC & Chem 7: 11/21/21 04:00 11/21/21 04:00 Labs: Laboratory Last Values WBC 12.0 K/mm3 (4.5-11.0) H 11/21/21 04:00 RBC 2.85 M/mm3 (3.65-5.03) L 11/21/21 04:00 Hgb 7.8 gm/dl (11.8-15.2) L 11/21/21 04:00 Hct 24.8 % (35.5-45.6) L 11/21/21 04:00 MCV 87 fl (84-94) 11/21/21 04:00 MCH 28 pg (28-32) 11/21/21 04:00 MCHC 32 % (32-34) 11/21/21 04:00 RDW 18.5 % (13.2-15.2) H 11/21/21 04:00 Plt Count 205 K/mm3 (140-440) 11/21/21 04:00 Lymph % (Auto) 10.0 % (13.4-35.0) L 11/11/21 19:49 Navarro % (Auto) 8.8 % (0.0-7.3) H 11/11/21 19:49 Eos % (Auto) 0.9 % (0.0-4.3) 11/11/21 19:49 Baso % (Auto) 0.5 % (0.0-1.8) 11/11/21 19:49 Lymph # (Auto) 1.1 K/mm3 (1.2-5.4) L 11/11/21 19:49 Navarro # (Auto) 1.0 K/mm3 (0.0-0.8) H 11/11/21 19:49 Eos # (Auto) 0.1 K/mm3 (0.0-0.4) 11/11/21 19:49 Baso # (Auto) 0.1 K/mm3 (0.0-0.1) 11/11/21 19:49 Add Manual Diff Complete 11/12/21 06:55 Total Counted 100 11/12/21 06:55 Seg Neutrophils % Children[facility] Minister 11/12/21 06:55 Seg Neuts % (Manual) 89.0 % (40.0-70.0) H 11/12/21 06:55 Band Neutrophils % 5.0 % 11/12/21 06:55 Lymphocytes % (Manual) 0 % (13.4-35.0) L 11/12/21 06:55 Reactive Lymphs % (Man) 0 % 11/12/21 06:55 Monocytes % (Manual) 3.0 % (0.0-7.3) 11/12/21 06:55 Eosinophils % (Manual) 0 % (0.0-4.3) 11/12/21 06:55 Basophils % (Manual) 0 % (0.0-1.8) 11/12/21 06:55 Metamyelocytes % 3.0 % 11/12/21 06:55 Myelocytes % 0 % 11/12/21 06:55 Promyelocytes % 0 % 11/12/21 06:55 Blast Cells % 0 % 11/12/21 06:55 Nucleated RBC % Not Reportable 11/12/21 06:55 Seg Neutrophils # 9.2 K/mm3 (1.8-7.7) H 11/11/21 19:49 Seg Neutrophils # Man 18.2 K/mm3 (1.8-7.7) H 11/12/21 06:55 Band Neutrophils # 1.0 K/mm3 11/12/21 06:55 Lymphocytes # (Manual) 0.0 K/mm3 (1.2-5.4) L 11/12/21 06:55 Abs React Lymphs (Man) 0.0 K/mm3 11/12/21 06:55 Monocytes # (Manual) 0.6 K/mm3 (0.0-0.8) 11/12/21 06:55 Eosinophils # (Manual) 0.0 K/mm3 (0.0-0.4) 11/12/21 06:55 Basophils # (Manual) 0.0 K/mm3 (0.0-0.1) 11/12/21 06:55 Metamyelocytes # 0.6 K/mm3 11/12/21 06:55 Myelocytes # 0.0 K/mm3 11/12/21 06:55 Promyelocytes # 0.0 K/mm3 11/12/21 06:55 Blast Cells # 0.0 K/mm3 11/12/21 06:55 WBC Morphology Not Reportable 11/12/21 06:55 Hypersegmented Neuts Not Reportable 11/12/21 06:55 Hyposegmented Neuts Not Reportable 11/12/21 06:55 Hypogranular Neuts Not Reportable 11/12/21 06:55 Smudge Cells Not Reportable 11/12/21 06:55 Toxic Granulation 1+ 11/12/21 06:55 Toxic Vacuolation Not Reportable 11/12/21 06:55 Dohle Bodies Not Reportable 11/12/21 06:55 Pelger-Huet Anomaly Not Reportable 11/12/21 06:55 Lissa Rods Not Reportable 11/12/21 06:55 Platelet Estimate Consistent w auto 11/12/21 06:55 Clumped Platelets Not Reportable 11/12/21 06:55 Plt Clumps, EDTA Not Reportable 11/12/21 06:55 Large Platelets Not Reportable 11/12/21 06:55 Giant Platelets Not Reportable 11/12/21 06:55 Platelet Satelliting Not Reportable 11/12/21 06:55 Plt Morphology Comment Not Reportable 11/12/21 06:55 RBC Morphology Normal 11/12/21 06:55 Dimorphic RBCs Not Reportable 11/12/21 06:55 Polychromasia Not Reportable 11/12/21 06:55 Hypochromasia Not Reportable 11/12/21 06:55 Poikilocytosis Not Reportable 11/12/21 06:55 Anisocytosis Not Reportable 11/12/21 06:55 Microcytosis Not Reportable 11/12/21 06:55 Macrocytosis Not Reportable 11/12/21 06:55 Spherocytes Not Reportable 11/12/21 06:55 Pappenheimer Bodies Not Reportable 11/12/21 06:55 Sickle Cells Not Reportable 11/12/21 06:55 Target Cells Not Reportable 11/12/21 06:55 Tear Drop Cells Not Reportable 11/12/21 06:55 Ovalocytes Not Reportable 11/12/21 06:55 Helmet Cells Not Reportable 11/12/21 06:55 Shea-[place] Bodies Not Reportable 11/12/21 06:55 Ashby Rings Not Reportable 11/12/21 06:55 Zuly Cells Not Reportable 11/12/21 06:55 Bite Cells Not Reportable 11/12/21 06:55 Crenated Cell Not Reportable 11/12/21 06:55 Elliptocytes Not Reportable 11/12/21 06:55 Acanthocytes (Spur) Not Reportable 11/12/21 06:55 Rouleaux Not Reportable 11/12/21 06:55 Hemoglobin C Crystals Not Reportable 11/12/21 06:55 Schistocytes Not Reportable 11/12/21 06:55 Malaria parasites Not Reportable 11/12/21 06:55 Nam Bodies Not Reportable 11/12/21 06:55 Hem Pathologist Commnt No 11/12/21 06:55 ABG pH 7.467 pH Units (7.350-7.450) H 11/18/21 04:35 ABG pCO2 37.1 mm Hg 11/18/21 04:35 ABG pO2 110.0 mm Hg (80.0-90.0) H 11/18/21 04:35 ABG HCO3 26.2 mmol/L (20.0-26.0) H 11/18/21 04:35 ABG O2 Saturation 98.1 % (95.0-99.0) 11/18/21 04:35 ABG O2 Content 11.3 (0.0-44) 11/18/21 04:35 ABG Base Excess 2.4 mmol/L (-2.0-3.0) 11/18/21 04:35 ABG Hemoglobin 8.1 gm/dl (14.0-18.0) L 11/18/21 04:35 ABG Carboxyhemoglobin 1.2 % (0.0-5.0) 11/18/21 04:35 ABG Methemoglobin 0.4 % (0.0-1.5) 11/18/21 04:35 Oxyhemoglobin 96.5 % (95.0-99.0) 11/18/21 04:35 FiO2 30 % 11/18/21 04:35 Sodium 133 mmol/L (137-145) L 11/21/21 04:00 Potassium 4.3 mmol/L (3.6-5.0) 11/21/21 04:00 Chloride 95.3 mmol/L (98-107) L 11/21/21 04:00 Carbon Dioxide 25 mmol/L (22-30) 11/21/21 04:00 Anion Gap 17 mmol/L 11/21/21 04:00 BUN 40 mg/dL (9-20) H 11/21/21 04:00 Creatinine 6.2 mg/dL (0.8-1.3) H 11/21/21 04:00 Estimated GFR 11 ml/min 11/21/21 04:00 BUN/Creatinine Ratio 6 % 11/21/21 04:00 Glucose 103 mg/dL (75-100) H 11/21/21 04:00 POC Glucose 102 mg/dL (70-105) 11/21/21 05:25 Hemoglobin A1c 5.7 % (4-6) 11/12/21 06:55 Lactic Acid 0.90 mmol/L (0.7-2.0) 11/11/21 19:49 Calcium 8.9 mg/dL (8.4-10.2) 11/21/21 04:00 Phosphorus 3.70 mg/dL (2.5-4.5) D 11/21/21 04:00 Magnesium 1.90 mg/dL (1.7-2.3) 11/21/21 04:00 Iron 24 ug/dL (49-181) L 11/11/21 23:29 TIBC 157 mcg/dL (250-450) L 11/11/21 23:29 Total Bilirubin 0.40 mg/dL (0.1-1.2) 11/11/21 19:49 AST 10 units/L (5-40) 11/11/21 19:49 ALT 7 units/L (7-56) 11/11/21 19:49 Alkaline Phosphatase 111 units/L (35-129) 11/11/21 19:49 Total Creatine Kinase 268 units/L (55-170) H 11/11/21 23:29 Troponin T 0.313 ng/mL (0.00-0.029) H* 11/12/21 22:30 NT-Pro-B Natriuret Pep 3674 pg/mL (0-900) H 11/12/21 Unknown Total Protein 9.1 g/dL (6.3-8.2) H 11/11/21 19:49 Albumin 3.0 g/dL (3.9-5) L 11/11/21 19:49 Albumin/Globulin Ratio 0.5 % 11/11/21 19:49 Triglycerides 109 mg/dL (2-149) 11/21/21 04:00 Cholesterol 146 mg/dL (50-199) 11/11/21 19:49 LDL Cholesterol Direct 85 mg/dL (50-130) 11/11/21 19:49 HDL Cholesterol 43 mg/dL (40-59) 11/11/21 19:49 Cholesterol/HDL Ratio 3.39 % 11/11/21 19:49 PTH Intact 1174 pg/mL (15-65) H 11/11/21 23:29 Urine Color Yellow (Yellow) 11/12/21 02:20 Urine Turbidity Cloudy (Clear) 11/12/21 02:20 Urine pH 5.0 (5.0-7.0) 11/12/21 02:20 Ur Specific [place] 1.013 (1.003-1.030) 11/12/21 02:20 Urine Protein >500 mg/dL (Negative) 11/12/21 02:20 Urine Glucose (UA) Neg mg/dL (Negative) 11/12/21 02:20 Urine Ketones Neg mg/dL (Negative) 11/12/21 02:20 Urine Blood Sm (Negative) 11/12/21 02:20 Urine Nitrite Neg (Negative) 11/12/21 02:20 Urine Bilirubin Neg (Negative) 11/12/21 02:20 Urine Urobilinogen < 2.0 mg/dL (<2.0) 11/12/21 02:20 Ur Leukocyte Esterase Tr (Negative) 11/12/21 02:20 Urine WBC (Auto) 12.0 /HPF (0.0-6.0) H 11/12/21 02:20 Urine RBC (Auto) 4.0 /HPF (0.0-6.0) 11/12/21 02:20 U Epithel Cells (Auto) 9.0 /HPF (0-13.0) 11/12/21 02:20 Urine Bacteria (Auto) 2+ /HPF (Negative) 11/12/21 02:20 Urine Mucus Few /HPF 11/12/21 02:20 Urine Yeast (Budding) 3+ /HPF 11/12/21 02:20 Urine Eosinophils None seen (None Seen) 11/12/21 02:20 Urine Creatinine 189.3 mg/dL (0.1-20.0) H 11/12/21 02:20 Urine Sodium 30 mmol/L 11/12/21 02:20 Hepatitis A IgM Ab Non-reactive (NonReactive) 11/12/21 04:45 Hep Bs Antigen Non-reactive (Negative) 11/12/21 04:45 Hep B Core IgM Ab Non-reactive (NonReactive) 11/12/21 04:45 Hepatitis C Antibody Non-reactive (NonReactive) 11/12/21 04:45 Iglesias/IV: Voiding Method Incontinent Active Medications - Current Medications Current Medications: Generic Name Dose Route Start Last Admin Trade Name Freq PRN Reason Stop Dose Admin Acetaminophen 650 mg 11/11/21 22:40 Acetaminophen 325 Mg Tab PO Q4H PRN Pain MILD(1-3)/Fever >100.5/SOTO Albuterol 2.5 mg 11/11/21 22:40 Albuterol 2.5 Mg/3 Ml Nebu Q3HRT PRN Shortness Of Breath Aspirin 325 mg 11/17/21 10:00 11/21/21 10:20 Aspirin 325 Mg Tab FEEDTUBE 325 mg QDAY BAO Administration Atorvastatin Calcium 40 mg 11/17/21 22:00 11/20/21 21:23 Atorvastatin 40 Mg Tab FEEDTUBE 40 mg QHS BAO Administration Dextrose 50 ml 11/18/21 13:00 Dextrose 50% In Water (25gm) 50 Ml Syringe IV Q30MIN PRN Hypoglycemia Protocol Docusate Sodium 100 mg 11/17/21 10:00 11/21/21 10:20 Docusate Sodium 100 Mg/10 Ml Oral Liqd FEEDTUBE 100 mg BID BAO Administration Famotidine 20 mg 11/17/21 10:00 11/21/21 10:20 Famotidine 20 Mg Tab FEEDTUBE 20 mg QDAY BAO Administration Fentanyl 50 mcg 11/11/21 20:56 11/12/21 00:12 Fentanyl 100 Mcg/2 Ml Inj IV 50 mcg Q10MIN PRN Administration ANALGESIA Heparin Sodium (Porcine) 5,000 unit 11/12/21 10:00 11/21/21 10:20 Heparin 5,000 Unit/1 Ml Vial SUB-Q 5,000 unit Q12HR BAO Administration Hydrophilic Ointment 1 applic 11/11/21 20:56 Lip Therapy Vaseline TP Q2HR PRN Dry Lips Fentanyl Citrate 2,000 mcg in 100 mls @ 13.608 mls/hr 11/11/21 21:00 11/21/21 12:19 Fentanyl Drip Premix IV 1 mcg/kg/hr TITR BAO 13.608 mls/hr Administration Protocol 1 MCG/KG/HR NORepinephrine/NS 8 MG-250 ML 8 mg in 250 mls @ 3.75 mls/hr 11/11/21 23:00 11/21/21 11:30 Norepinephrine/Ns 8 Mg-250 Ml (Double Conc) IV 10 mcg/min TITRATE BAO 18.75 mls/hr Titration Protocol 2 MCG/MIN Propofol 1,000 mg in 100 mls @ 8.166 mls/hr 11/13/21 09:00 11/21/21 10:36 Diprivan 10 Mg/Ml IV 5 mcg/kg/min TITR BAO 8.166 mls/hr Titration Protocol 5 MCG/KG/MIN Sodium Chloride 100 mls @ 999 mls/hr 11/21/21 08:11 Nacl 0.9% IV LONG PRN Hypotension Insulin Human Lispro 0 unit 11/12/21 00:00 11/21/21 12:17 Insulin Lispro 100 Unit/Ml SUB-Q Not Given Q6HR BAO Protocol Lorazepam 2 mg 11/21/21 11:00 Lorazepam 2 Mg/Ml Vial IV Q4H PRN Agitation Multi-Ingred Cream/Lotion/Oil/Oint 1 applic 11/11/21 20:56 Mineral Oil/Petrolatum, White Ophth Oint 3.5 Gm OU Q4HR PRN Dry Eye(s) Ondansetron HCl 4 mg 11/11/21 22:40 Ondansetron 4 Mg/2 Ml Inj IV Q8H PRN Nausea And Vomiting Senna 8.6 mg 11/17/21 10:00 11/21/21 10:20 Sennosides 8.6 Mg Tab FEEDTUBE 8.6 mg Q12H BAO Administration Sodium Chloride 10 ml 11/12/21 10:00 11/21/21 10:21 Sodium Chloride 0.9% 10 Ml Flush Syringe IV 10 ml BID BAO Administration Sodium Chloride 10 ml 11/11/21 22:40 Sodium Chloride 0.9% 10 Ml Flush Syringe IV PRN PRN LINE FLUSH Nutrition/Malnutrition Assess - Dietary Evaluation Nutrition/Malnutrition Findings: Nutrition Notes Start: 11/12/21 16:08 Freq: Status: Active Protocol: Document 11/21/21 12:33 TODD (Rec: 11/21/21 12:44 [facility] [id number]) Nutrition Notes Initial or Follow up Reassessment Current Diagnosis Acute Kidney Injury,Diabetes, Hypertension,Respiratory Failure Other Pertinent Diagnosis Pneu Current Diet TF - Nepro at 50ml/hr Labs/Tests Na 133 BUN 40 Cr 6.2 Pertinent Medications Colace, Pepcid, Senokot, Levophed gtt, Propofol at 8. 166ml/hr (provides 216 kcal) Height 5 ft 9 in Weight 186.45 kg [place] Body Weight (kg) 72.72 BMI 60.7 Weight change and time frame Current wt obtained from bed scale Weight Status Morbidly Obese Subjective/Other Information Pt receiving HD at time of visit (11:07). Per HD nurse, pt been receiving HD almost daily; she will remove 3L of fluid today; 4L removed this past Sunday. Pt remains on vent support. Per RN, pt last BM was 11/17. Pt tolerating TF. Percent of energy/protein needs met: 100% energy 53% pro Burn Absent Trauma Absent #1 Nutrition Diagnosis Inadequate oral intake Diagnosis Progress(for reassessment Continues documentation) Is patient on ventilator? Yes Is Patient Ambulatory and/or Out of Bed No REE-(Whitley-. Jewa-confined to bed) 3230.892 Kcal/Kg value to use for calculation 11 Approximate Energy Requirements Using 1 kcal/Kg Calculation Used for Recommendations 65-70% energy Additional Notes Energy needs: 1140-6673 kcal/ day Pro needs up to 2.5g/kg IBW: 182g/day Fluid needs 1-1.5L/day Nutrition Intervention Nutrition Support: Continue Nepro at 50ml/hr with 200ml water flush q4h. Kcal 2,160 Protein (gm) 97 Carbohydrates (gm) 193 Fat (gm) 115 Fluid (mL) 872 Fiber (gm) 15 Goal #1 TF tolerance Goal #2 TF to meet energy and pro needs as best possible Follow-Up By: 11/28/21 Additional Comments F/U: stable TF, vent status, trach/PEG placement, BM, wt, renal function
--- NOTE | 2021-11-20 13:28 | Progress Note ---
Assessment and Plan 56 y/o morbidly obese male with acute respiratory failure, requiring intubation and now in acute renal failure and in need of HD 11/20/21: No change, weaing vasopressors, remain on PRVC. Await possible trach this week. 11/19/2021: No significant change remained intubated on mechanical ventilator with good stable vital signs. We will continue with the current vent settings. Await tracheostomy in the future. Long-term prognosis is guarded. 11/18/21: Await Gen Surg comments as they were checking on OR supplies. If not able to, will start working on transfer as patient will need trach given current clinical state. HD per renal. Wean pressors as tolerated. Guarded to poor prognosis. 11/17/21: Follow up Gen Surge eval, they are checking to see the materials they have in OR. Reviewed neck ultrasound, per their read trachea is only about an 1inch away from the skin. Shocking given his neck size but given the difficulty in intubation and his entrance being anterior, this makes sense. Will defer to surgery call but have no problem with calling for transfer as well. Wean Pressors as tolerated. HD per renal. Continue sedation for RASS of 0. Guarded to poor prognosis. 11/16/21: Given patient body habitus, difficult airway and likely no improvement in current clinical state, will need trach. However given his neck size, I would suggest this be done by ENT as I am not even sure that the bovona XLT is long enough. Ok to consult surgery here but I suggest seeking transfer to a tertiary care facility with ENT to attempt this. Also suggest obtaining neck CT to further evaluate total neck anatomy that way if we need to send this over prior to acceptance we can. Guarded prognosis but mental status is intact. HD per renal. 11/15/21: stop sedation. Attempt PSV. Bipap PRN and QHS. Hopeful extubation today. HD per renal. 11/14/21: Wean PEEP again today and attempt PSV trial. If passes will attempt extubation. HD per renal 11/13/21: HD per renal. No PSV trials today. Wean PEEP after HD. Guarded pr ognosis. Critical care time 31-minute. Subjective Date of service: 11/20/21 Principal diagnosis: Acute respiratory failure, Interval history: Patient remains intubated on mechanical ventilator. No significant change. On hemodialysis per renal. Awaiting trach. Remain on sedation and low dose vasopressors, being weaned for MAP 65 Objective Vital Signs - 12hr 11/20/21 11/20/21 11/20/21 02:00 03:00 03:37 Temperature 99.4 F Pulse Rate 66 69 Pulse Rate [ From Monitor] Respiratory 20 20 Rate Blood Pressure 126/73 138/75 O2 Sat by Pulse 98 98 Oximetry 11/20/21 11/20/21 11/20/21 04:00 05:00 06:00 Temperature Pulse Rate 71 85 93 H Pulse Rate [ 73 From Monitor] Respiratory 20 24 20 Rate Blood Pressure 137/76 143/79 149/84 O2 Sat by Pulse 96 84 95 Oximetry 11/20/21 11/20/21 11/20/21 07:00 08:00 08:47 Temperature 98.2 F Pulse Rate 87 86 87 Pulse Rate [ 97 H From Monitor] Respiratory 20 20 Rate Blood Pressure 161/91 118/75 115/70 O2 Sat by Pulse 100 93 94 Oximetry 11/20/21 11/20/21 11/20/21 09:00 10:00 11:00 Temperature Pulse Rate 86 89 94 H Pulse Rate [ From Monitor] Respiratory 20 20 18 Rate Blood Pressure 121/76 114/73 95/51 O2 Sat by Pulse 96 97 96 Oximetry 11/20/21 11/20/21 11/20/21 12:00 12:13 13:00 Temperature 97.8 F Pulse Rate 94 H 95 H 93 H Pulse Rate [ 94 H From Monitor] Respiratory 13 20 Rate Blood Pressure 106/64 106/64 104/66 O2 Sat by Pulse 96 96 97 Oximetry Constitutional: comatose Eyes: non-icteric ENT: other (orally intubated and sedated) Neck: supple, other (large in circumference) Effort: normal Ascultation: Bilateral: diminished breath sounds Cardiovascular: regular rate and rhythm Gastrointestinal: normoactive bowel sounds Extremities: edema, anasarca Neurologic: unable to assess CBC and BMP: 11/18/21 04:00 11/20/21 04:00 ABG, PT/INR, D-dimer: ABG ABG pH 7.467 pH Units (7.350-7.450) H 11/18/21 04:35 ABG pCO2 37.1 mm Hg 11/18/21 04:35 ABG pO2 110.0 mm Hg (80.0-90.0) H 11/18/21 04:35 ABG O2 Saturation 98.1 % (95.0-99.0) 11/18/21 04:35 Abnormal lab findings: Abnormal Labs 11/11/21 11/11/21 11/11/21 19:49 19:49 23:29 WBC 11.5 H RBC Hgb 10.1 L Hct 34.8 L MCH 27 L MCHC 29 L RDW 20.1 H Lymph % (Auto) 10.0 L Rush % (Auto) 8.8 H Lymph # (Auto) 1.1 L Rush # (Auto) 1.0 H Seg Neutrophils % 79.8 H Seg Neuts % (Manual) Lymphocytes % (Manual) Seg Neutrophils # 9.2 H Seg Neutrophils # Man Lymphocytes # (Manual) ABG pH ABG pO2 ABG HCO3 ABG O2 Saturation ABG Base Excess ABG Hemoglobin Sodium Potassium 7.6 H* Chloride 107.8 H Carbon Dioxide 13 L BUN 107 H Creatinine 13.8 H Glucose POC Glucose Calcium 7.5 L Phosphorus Magnesium Iron TIBC Total Creatine Kinase 268 H Troponin T 0.324 H* NT-Pro-B Natriuret Pep Total Protein 9.1 H Albumin 3.0 L PTH Intact Urine WBC (Auto) Urine Creatinine 11/11/21 11/11/21 11/12/21 23:29 23:29 02:20 WBC RBC Hgb Hct MCH MCHC RDW Lymph % (Auto) Rush % (Auto) Lymph # (Auto) Rush # (Auto) Seg Neutrophils % Seg Neuts % (Manual) Lymphocytes % (Manual) Seg Neutrophils # Seg Neutrophils # Man Lymphocytes # (Manual) ABG pH ABG pO2 ABG HCO3 ABG O2 Saturation ABG Base Excess ABG Hemoglobin Sodium Potassium Chloride Carbon Dioxide BUN Creatinine Glucose POC Glucose Calcium Phosphorus Magnesium Iron 24 L TIBC 157 L Total Creatine Kinase Troponin T NT-Pro-B Natriuret Pep Total Protein Albumin PTH Intact 1174 H Urine WBC (Auto) Urine Creatinine 189.3 H 11/12/21 11/12/21 11/12/21 02:20 02:28 06:55 WBC 20.5 H RBC 3.54 L Hgb 9.4 L Hct 32.3 L MCH 27 L MCHC 29 L RDW 20.0 H Lymph % (Auto) Rush % (Auto) Lymph # (Auto) Rush # (Auto) Seg Neutrophils % Seg Neuts % (Manual) 89.0 H Lymphocytes % (Manual) 0 L Seg Neutrophils # Seg Neutrophils # Man 18.2 H Lymphocytes # (Manual) 0.0 L ABG pH 7.172 L* ABG pO2 100.6 H ABG HCO3 17.4 L ABG O2 Saturation ABG Base Excess -10.6 L ABG Hemoglobin 9.4 L Sodium Potassium Chloride Carbon Dioxide BUN Creatinine Glucose POC Glucose Calcium Phosphorus Magnesium Iron TIBC Total Creatine Kinase Troponin T NT-Pro-B Natriuret Pep Total Protein Albumin PTH Intact Urine WBC (Auto) 12.0 H Urine Creatinine 11/12/21 11/12/21 11/12/21 06:55 09:10 12:01 WBC RBC Hgb Hct MCH MCHC RDW Lymph % (Auto) [place] % (Auto) Lymph # (Auto) [place] # (Auto) Seg Neutrophils % Seg Neuts % (Manual) Lymphocytes % (Manual) Seg Neutrophils # Seg Neutrophils # Man Lymphocytes # (Manual) ABG pH 7.296 L ABG pO2 237.3 H ABG HCO3 ABG O2 Saturation 99.3 H ABG Base Excess -6.0 L ABG Hemoglobin 8.8 L Sodium Potassium 5.5 H D Chloride 107.1 H Carbon Dioxide 19 L BUN 78 H Creatinine 9.4 H Glucose 119 H POC Glucose 106 H Calcium 8.1 L Phosphorus Magnesium Iron TIBC Total Creatine Kinase Troponin T NT-Pro-B Natriuret Pep Total Protein Albumin PTH Intact Urine WBC (Auto) Urine Creatinine 11/12/21 11/12/21 11/12/21 16:46 16:46 22:30 WBC RBC Hgb Hct MCH MCHC RDW Lymph % (Auto) [place] % (Auto) Lymph # (Auto) [place] # (Auto) Seg Neutrophils % Seg Neuts % (Manual) Lymphocytes % (Manual) Seg Neutrophils # Seg Neutrophils # Man Lymphocytes # (Manual) ABG pH ABG pO2 ABG HCO3 ABG O2 Saturation ABG Base Excess ABG Hemoglobin Sodium 146 H Potassium Chloride 108.2 H Carbon Dioxide 21 L BUN 66 H Creatinine 9.8 H Glucose 125 H POC Glucose Calcium 7.8 L Phosphorus Magnesium Iron TIBC Total Creatine Kinase Troponin T 0.319 H* 0.313 H* NT-Pro-B Natriuret Pep Total Protein Albumin PTH Intact Urine WBC (Auto) Urine Creatinine 11/12/21 11/12/21 11/13/21 23:18 Unknown 04:00 WBC 17.2 H RBC 3.09 L Hgb 8.4 L Hct 27.5 L MCH 27 L MCHC 30 L RDW 19.6 H Lymph % (Auto) [place] % (Auto) Lymph # (Auto) [place] # (Auto) Seg Neutrophils % Seg Neuts % (Manual) Lymphocytes % (Manual) Seg Neutrophils # Seg Neutrophils # Man Lymphocytes # (Manual) ABG pH ABG pO2 ABG HCO3 ABG O2 Saturation ABG Base Excess ABG Hemoglobin Sodium Potassium Chloride Carbon Dioxide BUN Creatinine Glucose POC Glucose 120 H Calcium Phosphorus Magnesium Iron TIBC Total Creatine Kinase Troponin T NT-Pro-B Natriuret Pep 3674 H Total Protein Albumin PTH Intact Urine WBC (Auto) Urine Creatinine 11/13/21 11/13/21 11/13/21 04:00 04:00 05:23 WBC RBC Hgb Hct MCH MCHC RDW Lymph % (Auto) [place] % (Auto) Lymph # (Auto) [place] # (Auto) Seg Neutrophils % Seg Neuts % (Manual) Lymphocytes % (Manual) Seg Neutrophils # Seg Neutrophils # Man Lymphocytes # (Manual) ABG pH 7.274 L ABG pO2 93.2 H ABG HCO3 ABG O2 Saturation ABG Base Excess -3.9 L ABG Hemoglobin 8.2 L Sodium Potassium Chloride Carbon Dioxide 21 L BUN 71 H Creatinine 9.9 H Glucose 128 H POC Glucose 117 H Calcium 7.7 L Phosphorus 5.10 H Magnesium 1.60 L Iron TIBC Total Creatine Kinase Troponin T NT-Pro-B Natriuret Pep Total Protein Albumin PTH Intact Urine WBC (Auto) Urine Creatinine 11/13/21 11/13/21 11/14/21 16:20 23:31 04:10 WBC RBC Hgb Hct MCH MCHC RDW Lymph % (Auto) [place] % (Auto) Lymph # (Auto) [place] # (Auto) Seg Neutrophils % Seg Neuts % (Manual) Lymphocytes % (Manual) Seg Neutrophils # Seg Neutrophils # Man Lymphocytes # (Manual) ABG pH ABG pO2 107.1 H ABG HCO3 ABG O2 Saturation ABG Base Excess ABG Hemoglobin 6.5 L Sodium Potassium Chloride Carbon Dioxide BUN Creatinine Glucose POC Glucose 125 H 123 H Calcium Phosphorus Magnesium Iron TIBC Total Creatine Kinase Troponin T NT-Pro-B Natriuret Pep Total Protein Albumin PTH Intact Urine WBC (Auto) Urine Creatinine 11/14/21 11/14/21 11/14/21 06:30 06:30 15:00 WBC 11.2 H RBC 3.03 L Hgb 8.1 L Hct 26.6 L MCH 27 L MCHC 30 L RDW 19.3 H Lymph % (Auto) [place] % (Auto) Lymph # (Auto) [place] # (Auto) Seg Neutrophils % Seg Neuts % (Manual) Lymphocytes % (Manual) Seg Neutrophils # Seg Neutrophils # Man Lymphocytes # (Manual) ABG pH ABG pO2 ABG HCO3 ABG O2 Saturation ABG Base Excess ABG Hemoglobin Sodium Potassium 3.0 L D 3.4 L Chloride Carbon Dioxide BUN 41 H Creatinine 7.0 H Glucose 107 H POC Glucose Calcium 7.5 L Phosphorus Magnesium 1.60 L Iron TIBC Total Creatine Kinase Troponin T NT-Pro-B Natriuret Pep Total Protein Albumin PTH Intact Urine WBC (Auto) Urine Creatinine 11/14/21 11/15/21 11/15/21 17:24 04:00 04:00 WBC 11.3 H RBC 3.00 L Hgb 8.1 L Hct 26.3 L MCH 27 L MCHC 31 L RDW 19.2 H Lymph % (Auto) [place] % (Auto) Lymph # (Auto) [place] # (Auto) Seg Neutrophils % Seg Neuts % (Manual) Lymphocytes % (Manual) Seg Neutrophils # Seg Neutrophils # Man Lymphocytes # (Manual) ABG pH ABG pO2 ABG HCO3 ABG O2 Saturation ABG Base Excess ABG Hemoglobin Sodium Potassium 3.4 L Chloride Carbon Dioxide BUN 32 H Creatinine 5.9 H Glucose 117 H POC Glucose 124 H Calcium 8.3 L Phosphorus Magnesium Iron TIBC Total Creatine Kinase Troponin T NT-Pro-B Natriuret Pep Total Protein Albumin PTH Intact Urine WBC (Auto) Urine Creatinine 11/15/21 11/15/21 11/16/21 13:58 16:20 04:00 WBC 13.2 H RBC 2.88 L Hgb 7.8 L Hct 25.2 L MCH 27 L MCHC 31 L RDW 19.1 H Lymph % (Auto) [place] % (Auto) Lymph # (Auto) [place] # (Auto) Seg Neutrophils % Seg Neuts % (Manual) Lymphocytes % (Manual) Seg Neutrophils # Seg Neutrophils # Man Lymphocytes # (Manual) ABG pH 7.335 L ABG pO2 254.0 H ABG HCO3 26.2 H ABG O2 Saturation 99.4 H ABG Base Excess ABG Hemoglobin 8.5 L Sodium Potassium Chloride Carbon Dioxide BUN Creatinine Glucose POC Glucose 132 H Calcium Phosphorus Magnesium Iron TIBC Total Creatine Kinase Troponin T NT-Pro-B Natriuret Pep Total Protein Albumin PTH Intact Urine WBC (Auto) Urine Creatinine 11/16/21 11/16/21 11/16/21 04:00 04:05 11:06 WBC RBC Hgb Hct MCH MCHC RDW Lymph % (Auto) [place] % (Auto) Lymph # (Auto) [place] # (Auto) Seg Neutrophils % Seg Neuts % (Manual) Lymphocytes % (Manual) Seg Neutrophils # Seg Neutrophils # Man Lymphocytes # (Manual) ABG pH ABG pO2 115.6 H ABG HCO3 ABG O2 Saturation ABG Base Excess ABG Hemoglobin 8.1 L Sodium Potassium Chloride Carbon Dioxide BUN 44 H Creatinine 7.7 H Glucose 104 H POC Glucose 106 H Calcium 7.9 L Phosphorus Magnesium Iron TIBC Total Creatine Kinase Troponin T NT-Pro-B Natriuret Pep Total Protein Albumin PTH Intact Urine WBC (Auto) Urine Creatinine 11/16/21 11/16/21 11/17/21 18:05 23:51 04:15 WBC 11.8 H RBC 3.02 L Hgb 8.1 L Hct 26.9 L MCH 27 L MCHC 30 L RDW 18.9 H Lymph % (Auto) [place] % (Auto) Lymph # (Auto) [place] # (Auto) Seg Neutrophils % Seg Neuts % (Manual) Lymphocytes % (Manual) Seg Neutrophils # Seg Neutrophils # Man Lymphocytes # (Manual) ABG pH ABG pO2 ABG HCO3 ABG O2 Saturation ABG Base Excess ABG Hemoglobin Sodium Potassium Chloride Carbon Dioxide BUN Creatinine Glucose POC Glucose 109 H 118 H Calcium Phosphorus Magnesium Iron TIBC Total Creatine Kinase Troponin T NT-Pro-B Natriuret Pep Total Protein Albumin PTH Intact Urine WBC (Auto) Urine Creatinine 11/17/21 11/17/21 11/17/21 04:15 04:25 11:25 WBC RBC Hgb Hct MCH MCHC RDW Lymph % (Auto) [place] % (Auto) Lymph # (Auto) [place] # (Auto) Seg Neutrophils % Seg Neuts % (Manual) Lymphocytes % (Manual) Seg Neutrophils # Seg Neutrophils # Man Lymphocytes # (Manual) ABG pH ABG pO2 153.8 H ABG HCO3 ABG O2 Saturation ABG Base Excess ABG Hemoglobin 8.3 L Sodium Potassium Chloride Carbon Dioxide BUN 33 H Creatinine 6.2 H Glucose 118 H POC Glucose 108 H Calcium Phosphorus Magnesium Iron TIBC Total Creatine Kinase Troponin T NT-Pro-B Natriuret Pep Total Protein Albumin PTH Intact Urine WBC (Auto) Urine Creatinine 11/18/21 11/18/21 11/18/21 04:00 04:00 04:35 WBC RBC 2.88 L Hgb 7.8 L Hct 25.3 L MCH 27 L MCHC 31 L RDW 18.7 H Lymph % (Auto) [place] % (Auto) Lymph # (Auto) [place] # (Auto) Seg Neutrophils % Seg Neuts % (Manual) Lymphocytes % (Manual) Seg Neutrophils # Seg Neutrophils # Man Lymphocytes # (Manual) ABG pH 7.467 H ABG pO2 110.0 H ABG HCO3 26.2 H ABG O2 Saturation ABG Base Excess ABG Hemoglobin 8.1 L Sodium Potassium Chloride Carbon Dioxide BUN 28 H Creatinine 5.5 H Glucose POC Glucose Calcium Phosphorus Magnesium Iron TIBC Total Creatine Kinase Troponin T NT-Pro-B Natriuret Pep Total Protein Albumin PTH Intact Urine WBC (Auto) Urine Creatinine 11/18/21 11/19/21 11/19/21 11:50 04:00 11:30 WBC RBC Hgb Hct MCH MCHC RDW Lymph % (Auto) [place] % (Auto) Lymph # (Auto) [place] # (Auto) Seg Neutrophils % Seg Neuts % (Manual) Lymphocytes % (Manual) Seg Neutrophils # Seg Neutrophils # Man Lymphocytes # (Manual) ABG pH ABG pO2 ABG HCO3 ABG O2 Saturation ABG Base Excess ABG Hemoglobin Sodium Potassium Chloride Carbon Dioxide BUN 26 H Creatinine 4.7 H Glucose 110 H POC Glucose 131 H 106 H Calcium Phosphorus Magnesium Iron TIBC Total Creatine Kinase Troponin T NT-Pro-B Natriuret Pep Total Protein Albumin PTH Intact Urine WBC (Auto) Urine Creatinine 11/19/21 11/20/21 11/20/21 17:09 00:14 04:00 WBC RBC Hgb Hct MCH MCHC RDW Lymph % (Auto) Rush % (Auto) Lymph # (Auto) [place] # (Auto) Seg Neutrophils % Seg Neuts % (Manual) Lymphocytes % (Manual) Seg Neutrophils # Seg Neutrophils # Man Lymphocytes # (Manual) ABG pH ABG pO2 ABG HCO3 ABG O2 Saturation ABG Base Excess ABG Hemoglobin Sodium 134 L Potassium Chloride 94.4 L Carbon Dioxide BUN 25 H Creatinine 4.6 H Glucose 117 H POC Glucose 129 H 115 H Calcium Phosphorus Magnesium Iron TIBC Total Creatine Kinase Troponin T NT-Pro-B Natriuret Pep Total Protein Albumin PTH Intact Urine WBC (Auto) Urine Creatinine 11/20/21 11:36 WBC RBC Hgb Hct MCH MCHC RDW Lymph % (Auto) Rush % (Auto) Lymph # (Auto) Rush # (Auto) Seg Neutrophils % Seg Neuts % (Manual) Lymphocytes % (Manual) Seg Neutrophils # Seg Neutrophils # Man Lymphocytes # (Manual) ABG pH ABG pO2 ABG HCO3 ABG O2 Saturation ABG Base Excess ABG Hemoglobin Sodium Potassium Chloride Carbon Dioxide BUN Creatinine Glucose POC Glucose 117 H Calcium Phosphorus Magnesium Iron TIBC Total Creatine Kinase Troponin T NT-Pro-B Natriuret Pep Total Protein Albumin PTH Intact Urine WBC (Auto) Urine Creatinine Allied health notes reviewed: nursing
--- NOTE | 2021-11-20 14:51 | Progress Note ---
Assessment and Plan Assessment and Plan Acute respiratory failure Pneumonia Hypoxia KD (acute kidney injury) on top of CKD Hyperkalemia Diabetes Elevated troponin Hypertension Obesity Acidosis Plan -S/p HD yesterday for UF and clearance, UF removed 4L -No acute indication for HD today -HD tomorrow for UF and clearance -Assess need for HD on daily basis -Renal function reviewed, SCr level was 4.6 today, yesterday's SCr level was 4.7 -On levophed drip -On Nepro tube feeding -Renal ultrasound- Left kidney no visualized. No hydronephrosis to right kidney -Renally dose all medications -Monitor I/O's daily -Renal plan reviewed by Dr Ya Subjective Date of service: 11/20/21 Principal diagnosis: Acute respiratory failure, Interval history: Pt seen in ICU bed, intubated on propofol, fentanyl, and levophed drips. Son at bedside, updated on renal plan Objective - Vital Signs Vital signs: Vital Signs - 12hr 11/20/21 11/20/21 11/20/21 03:00 03:37 04:00 Temperature 99.4 F Pulse Rate 69 71 Pulse Rate [ 73 From Monitor] Respiratory 20 20 Rate Blood Pressure 138/75 137/76 O2 Sat by Pulse 98 96 Oximetry 11/20/21 11/20/21 11/20/21 05:00 06:00 07:00 Temperature Pulse Rate 85 93 H 87 Pulse Rate [ From Monitor] Respiratory 24 20 20 Rate Blood Pressure 143/79 149/84 161/91 O2 Sat by Pulse 84 95 100 Oximetry 11/20/21 11/20/21 11/20/21 08:00 08:47 09:00 Temperature 98.2 F Pulse Rate 86 87 86 Pulse Rate [ 97 H From Monitor] Respiratory 20 20 Rate Blood Pressure 118/75 115/70 121/76 O2 Sat by Pulse 93 94 96 Oximetry 11/20/21 11/20/21 11/20/21 10:00 11:00 12:00 Temperature 97.8 F Pulse Rate 89 94 H 93 H Pulse Rate [ 94 H From Monitor] Respiratory 20 18 13 Rate Blood Pressure 114/73 95/51 106/64 O2 Sat by Pulse 97 96 96 Oximetry 11/20/21 11/20/21 12:13 13:00 Temperature Pulse Rate 95 H 93 H Pulse Rate [ From Monitor] Respiratory 20 Rate Blood Pressure 106/64 104/66 O2 Sat by Pulse 96 97 Oximetry - General Appearance General appearance: intubated EENT: ATNC Respiratory: Present: Decreased Breath Sounds ( intubated) Cardiology: regular, S1S2, other (Access: Right IJ Vas Catheter intact) Gastrointestinal: normoactive bowel sounds (orogastric tube in place) Integumentary: other (BLE skin changes) Neurologic: other (intubated, opens eyes to verbal command) Musculoskeletal: other (BLE edema) - Lab 11/18/21 04:00 11/20/21 04:00 Most recent lab results ABG pH 7.467 pH Units (7.350-7.450) H 11/18/21 04:35 ABG pCO2 37.1 mm Hg 11/18/21 04:35 ABG pO2 110.0 mm Hg (80.0-90.0) H 11/18/21 04:35 ABG HCO3 26.2 mmol/L (20.0-26.0) H 11/18/21 04:35 ABG O2 Saturation 98.1 % (95.0-99.0) 11/18/21 04:35 Calcium 8.9 mg/dL (8.4-10.2) 11/20/21 04:00 Phosphorus 2.80 mg/dL (2.5-4.5) D 11/20/21 04:00 Magnesium 1.70 mg/dL (1.7-2.3) 11/20/21 04:00 Urine Creatinine 189.3 mg/dL (0.1-20.0) H 11/12/21 02:20 Urine Sodium 30 mmol/L 11/12/21 02:20 Medications & Allergies - Medications Allergies/Adverse Reactions: Allergies No Known Allergies Allergy (Verified 11/11/21 20:58) Active Medications: Generic Name Dose Route Start Last Admin Trade Name Freq PRN Reason Stop Dose Admin Acetaminophen 650 mg 11/11/21 22:40 Acetaminophen 325 Mg Tab PO Q4H PRN Pain MILD(1-3)/Fever >100.5/SOTO Albuterol 2.5 mg 11/11/21 22:40 Albuterol 2.5 Mg/3 Ml Nebu IH Q3HRT PRN Shortness Of Breath Aspirin 325 mg 11/17/21 10:00 11/20/21 09:44 Aspirin 325 Mg Tab FEEDTUBE 325 mg QDAY BAO Administration Atorvastatin Calcium 40 mg 11/17/21 22:00 11/19/21 21:44 Atorvastatin 40 Mg Tab FEEDTUBE 40 mg QHS BAO Administration Dextrose 50 ml 11/18/21 13:00 Dextrose 50% In Water (25gm) 50 Ml Syringe IV Q30MIN PRN Hypoglycemia Protocol Docusate Sodium 100 mg 11/17/21 10:00 11/20/21 09:44 Docusate Sodium 100 Mg/10 Ml Oral Liqd FEEDTUBE 100 mg BID BAO Administration Famotidine 20 mg 11/17/21 10:00 11/20/21 09:44 Famotidine 20 Mg Tab FEEDTUBE 20 mg QDAY BAO Administration Fentanyl 50 mcg 11/11/21 20:56 11/12/21 00:12 Fentanyl 100 Mcg/2 Ml Inj IV 50 mcg Q10MIN PRN Administration ANALGESIA Heparin Sodium (Porcine) 5,000 unit 11/12/21 10:00 11/20/21 09:44 Heparin 5,000 Unit/1 Ml Vial SUB-Q 5,000 unit Q12HR BAO Administration Hydrophilic Ointment 1 applic 11/11/21 20:56 Lip Therapy Vaseline TP Q2HR PRN Dry Lips Fentanyl Citrate 2,000 mcg in 100 mls @ 13.608 mls/hr 11/11/21 21:00 11/20/21 11:28 Fentanyl Drip Premix IV 1 mcg/kg/hr TITR BAO 13.608 mls/hr Administration Protocol 1 MCG/KG/HR NORepinephrine/NS 8 MG-250 ML 8 mg in 250 mls @ 3.75 mls/hr 11/11/21 23:00 11/20/21 13:32 Norepinephrine/Ns 8 Mg-250 Ml (Double Conc) IV 4 mcg/min TITRATE BAO 7.5 mls/hr Titration Protocol 2 MCG/MIN Propofol 1,000 mg in 100 mls @ 8.166 mls/hr 11/13/21 09:00 11/20/21 12:43 Diprivan 10 Mg/Ml IV 15 mcg/kg/min TITR BAO 24.498 mls/hr Administration Protocol 5 MCG/KG/MIN Sodium Chloride 100 mls @ 999 mls/hr 11/16/21 10:22 Nacl 0.9% IV LONG PRN Hypotension Insulin Human Lispro 0 unit 11/12/21 00:00 11/20/21 11:38 Insulin Lispro 100 Unit/Ml SUB-Q Not Given Q6HR [facility] Protocol Multi-Ingred Cream/Lotion/Oil/Oint 1 applic 11/11/21 20:56 Mineral Oil/Petrolatum, White Ophth Oint 3.5 Gm OU Q4HR PRN Dry Eye(s) Ondansetron HCl 4 mg 11/11/21 22:40 Ondansetron 4 Mg/2 Ml Inj IV Q8H PRN Nausea And Vomiting Senna 8.6 mg 11/17/21 10:00 11/20/21 09:44 Sennosides 8.6 Mg Tab FEEDTUBE 8.6 mg Q12H BAO Administration Sodium Chloride 10 ml 11/12/21 10:00 11/20/21 09:45 Sodium Chloride 0.9% 10 Ml Flush Syringe IV Not Given BID BAO Sodium Chloride 10 ml 11/11/21 22:40 Sodium Chloride 0.9% 10 Ml Flush Syringe IV PRN PRN LINE FLUSH
[2021-11-21] MEDS: INSULIN LISPRO 100 UNIT/ML SUB-Q SCH ×3 (00:41→12:17)
[2021-11-21] MEDS: fentaNYL DRIP Premix 2,000 MCG/100 ML BAG IV SCH ×3 (02:49→23:28)
[2021-11-21] MEDS: NORepinephrine/NS 8 MG-250 ML 8 MG/250 ML INFUS..BTL IV SCH (04:11)
--- NOTE | 2021-11-21 05:00 | XRay Report ---
CHEST 1 VIEW 11/21/2021 3:54 AM INDICATION / CLINICAL INFORMATION: Respiratory failure, intubated. COMPARISON: 11/18/2021 FINDINGS: SUPPORT DEVICES: Stable, satisfactory device positioning. HEART / MEDIASTINUM: Stable. LUNGS / PLEURA: Stable bibasilar opacities likely atelectasis. No pneumothorax. ADDITIONAL FINDINGS: No significant additional findings. IMPRESSION: 1. No adverse change from the prior exam. Signer Name: Greg Branch MD Signed: 11/21/2021 4:55 AM Workstation Name: [email or web address] [id number]
[2021-11-21 05:05] LABS: Hematocrit 24.8 % (35.5-45.6); Hemoglobin 7.8 gm/dl (11.8-15.2); Mean Corpuscular HGB Conc 32 % (32-34); Mean Corpuscular Volume 87 fl (84-94); Platelet Count 205 K/mm3 (140-440); Red Blood Count 2.85 M/mm3 (3.65-5.03); Red Cell Distribution Width 18.5 % (13.2-15.2)
[2021-11-21 05:12] LABS: Calcium 8.9 mg/dL (8.4-10.2)
[2021-11-21] MEDS ORDERED: SODIUM CHLORIDE 0.9% 100 ML IV PRN (08:11)
--- NOTE | 2021-11-21 09:28 | Progress Note ---
Assessment and Plan 56-year-old -[place] male with a BMI of 88. Patient has respiratory insufficiency and has required several reintubations. Is also with recent onset of hemodialysis for renal failure. Surgical consultation is for trach and PEG placement. Patient's girth is too large to fit in the CT scanner. Unable to obtain neck CT or abdominal CT to evaluate distances since they were changed by his morbid obesity. Ultrasound of the neck indicates the distance from the skin to mid trachea is about 3 cm. Ultrasound of the left upper quadrant shows the distance from skin to peritoneum is 9 cm. In hospital bear and ireneana will likely cover the distance. Peg will likely need done with laprascopic assistance. Discussed ultrasound findings of thyroid nodule with Dr. Gutierrez. Agree with his assessment for to defer the fine-needle aspirate cytology as risk is relatively low for neoplasm at this time. Discussed with the critical care team potential for transfer. If this could be done within the next few days will defer the placement of the trach and PEG tube to the referring service. Subjective Date of service: 11/21/21 Narrative: Discussed ultrasound findings of thyroid nodule with Dr. Gutierrez. Agree with his assessment for to defer the fine-needle aspirate cytology as risk is relatively low for neoplasm at this time. Discussed with the critical care team potential for transfer. If this could be done within the next few days will defer the placement of the trach and PEG tube to the referring service. Objective Vital Signs - 12hr 11/20/21 11/20/21 11/20/21 22:00 22:41 23:00 Temperature Pulse Rate 95 H 90 92 H Pulse Rate [ From Monitor] Respiratory 20 20 17 Rate Blood Pressure 108/66 88/52 106/66 O2 Sat by Pulse 96 95 95 Oximetry 11/20/21 11/20/21 11/20/21 23:31 23:40 23:57 Temperature 98.4 F Pulse Rate 102 H 101 H Pulse Rate [ From Monitor] Respiratory 16 Rate Blood Pressure 115/59 O2 Sat by Pulse 93 94 Oximetry 11/21/21 11/21/21 11/21/21 00:00 01:00 02:00 Temperature Pulse Rate 100 H 88 86 Pulse Rate [ 83 From Monitor] Respiratory 20 20 21 Rate Blood Pressure 132/72 91/52 97/53 O2 Sat by Pulse 95 96 97 Oximetry 11/21/21 11/21/21 11/21/21 03:00 03:41 04:00 Temperature Pulse Rate 82 82 85 Pulse Rate [ 83 From Monitor] Respiratory 20 20 Rate Blood Pressure 93/49 86/48 94/60 O2 Sat by Pulse 97 99 97 Oximetry 11/21/21 11/21/21 11/21/21 04:28 05:00 06:00 Temperature 98.8 F Pulse Rate 90 87 Pulse Rate [ From Monitor] Respiratory 20 20 Rate Blood Pressure 102/58 101/61 O2 Sat by Pulse 96 95 Oximetry 11/21/21 11/21/21 11/21/21 07:00 07:15 07:30 Temperature Pulse Rate 89 93 H 93 H Pulse Rate [ From Monitor] Respiratory 20 18 11 L Rate Blood Pressure 101/58 106/64 94/56 O2 Sat by Pulse 96 93 93 Oximetry 11/21/21 11/21/21 11/21/21 07:34 07:45 08:00 Temperature 99.1 F 99.1 F Pulse Rate 93 H 88 Pulse Rate [ 85 From Monitor] Respiratory 21 20 Rate Blood Pressure 111/67 97/54 O2 Sat by Pulse 96 94 Oximetry 11/21/21 08:15 Temperature Pulse Rate 87 Pulse Rate [ From Monitor] Respiratory 19 Rate Blood Pressure 90/52 O2 Sat by Pulse 95 Oximetry - Labs 11/21/21 04:00 11/21/21 04:00 Diabetes panel 11/21/21 Range/Units 04:00 Sodium 133 L (137-145) mmol/L Potassium 4.3 (3.6-5.0) mmol/L Chloride 95.3 L (98-107) mmol/L Carbon Dioxide 25 (22-30) mmol/L BUN 40 H (9-20) mg/dL Creatinine 6.2 H (0.8-1.3) mg/dL Glucose 103 H (75-100) mg/dL Calcium 8.9 (8.4-10.2) mg/dL Triglycerides 109 (2-149) mg/dL Calcium panel 11/21/21 Range/Units 04:00 Calcium 8.9 (8.4-10.2) mg/dL Phosphorus 3.70 D (2.5-4.5) mg/dL Pituitary panel 11/21/21 Range/Units 04:00 Sodium 133 L (137-145) mmol/L Potassium 4.3 (3.6-5.0) mmol/L Chloride 95.3 L (98-107) mmol/L Carbon Dioxide 25 (22-30) mmol/L BUN 40 H (9-20) mg/dL Creatinine 6.2 H (0.8-1.3) mg/dL Glucose 103 H (75-100) mg/dL Calcium 8.9 (8.4-10.2) mg/dL Adrenal panel 11/21/21 Range/Units 04:00 Sodium 133 L (137-145) mmol/L Potassium 4.3 (3.6-5.0) mmol/L Chloride 95.3 L (98-107) mmol/L Carbon Dioxide 25 (22-30) mmol/L BUN 40 H (9-20) mg/dL Creatinine 6.2 H (0.8-1.3) mg/dL Glucose 103 H (75-100) mg/dL Calcium 8.9 (8.4-10.2) mg/dL
[2021-11-21] MEDS ORDERED: HEPARIN 10,000 UNITS/10 ML VIAL IV NR (10:00)
[2021-11-21] MEDS: SENNOSIDES 8.6 MG TAB FEEDTUBE SCH ×2 (10:20→22:00)
[2021-11-21] MEDS: ASPIRIN 325 MG TAB FEEDTUBE SCH (10:20)
[2021-11-21] MEDS: DOCUSATE SODIUM 100 MG/10 ML ORAL LIQD FEEDTUBE SCH ×2 (10:20→21:01)
[2021-11-21] MEDS: HEPARIN 5,000 UNIT/1 ML VIAL SUB-Q SCH (10:20)
[2021-11-21] MEDS: FAMOTIDINE 20 MG TAB FEEDTUBE SCH (10:20)
--- NOTE | 2021-11-21 11:42 | Progress Note ---
Assessment and Plan Acute respiratory failure Pneumonia Hypoxia KD (acute kidney injury) on top of CKD Hyperkalemia Diabetes Elevated troponin Hypertension Obesity Acidosis Plan -HD today for UF and clearance -Assess need for HD on daily basis -On levophed drip -On Nepro tube feeding -Renal ultrasound- Left kidney no visualized. No hydronephrosis to right kidney -Renally dose all medications -Monitor I/O's daily Subjective Date of service: 11/21/21 Principal diagnosis: Acute respiratory failure, Interval history: intubated and sedated Objective - Vital Signs Vital signs: Vital Signs - 12hr 11/20/21 11/20/21 11/21/21 23:40 23:57 00:00 Temperature 98.4 F Pulse Rate 101 H 100 H Pulse Rate [ 83 From Monitor] Respiratory 20 Rate Blood Pressure 132/72 O2 Sat by Pulse 94 95 Oximetry O2 Sat by Pulse Oximetry [ Anterior Bilateral Throughout] 11/21/21 11/21/21 11/21/21 01:00 02:00 03:00 Temperature Pulse Rate 88 86 82 Pulse Rate [ From Monitor] Respiratory 20 21 20 Rate Blood Pressure 91/52 97/53 93/49 O2 Sat by Pulse 96 97 97 Oximetry O2 Sat by Pulse Oximetry [ Anterior Bilateral Throughout] 11/21/21 11/21/21 11/21/21 03:41 04:00 04:28 Temperature 98.8 F Pulse Rate 82 85 Pulse Rate [ 83 From Monitor] Respiratory 20 Rate Blood Pressure 86/48 94/60 O2 Sat by Pulse 99 97 Oximetry O2 Sat by Pulse Oximetry [ Anterior Bilateral Throughout] 11/21/21 11/21/21 11/21/21 05:00 06:00 07:00 Temperature Pulse Rate 90 87 89 Pulse Rate [ From Monitor] Respiratory 20 20 20 Rate Blood Pressure 102/58 101/61 101/58 O2 Sat by Pulse 96 95 96 Oximetry O2 Sat by Pulse Oximetry [ Anterior Bilateral Throughout] 11/21/21 11/21/21 11/21/21 07:15 07:30 07:34 Temperature 99.1 F Pulse Rate 93 H 93 H Pulse Rate [ From Monitor] Respiratory 18 11 L Rate Blood Pressure 106/64 94/56 O2 Sat by Pulse 93 93 Oximetry O2 Sat by Pulse Oximetry [ Anterior Bilateral Throughout] 11/21/21 11/21/21 11/21/21 07:45 08:00 08:15 Temperature 99.1 F Pulse Rate 93 H 88 87 Pulse Rate [ 85 From Monitor] Respiratory 21 20 19 Rate Blood Pressure 111/67 97/54 90/52 O2 Sat by Pulse 96 94 95 Oximetry O2 Sat by Pulse Oximetry [ Anterior Bilateral Throughout] 11/21/21 11/21/21 11/21/21 08:31 08:45 09:00 Temperature 99.1 F Pulse Rate 86 89 92 H Pulse Rate [ From Monitor] Respiratory 21 11 L 22 Rate Blood Pressure 123/73 115/65 115/63 O2 Sat by Pulse 100 96 95 Oximetry O2 Sat by Pulse 89 Oximetry [ Anterior Bilateral Throughout] 11/21/21 11/21/21 11/21/21 09:15 09:20 09:30 Temperature Pulse Rate 90 89 95 H Pulse Rate [ From Monitor] Respiratory 18 20 Rate Blood Pressure 68/31 132/74 110/62 O2 Sat by Pulse 92 89 Oximetry O2 Sat by Pulse Oximetry [ Anterior Bilateral Throughout] 11/21/21 11/21/21 11/21/21 09:45 10:00 10:15 Temperature Pulse Rate 105 H 113 H 110 H Pulse Rate [ From Monitor] Respiratory 18 20 22 Rate Blood Pressure 140/78 157/92 182/94 O2 Sat by Pulse 92 91 Oximetry O2 Sat by Pulse Oximetry [ Anterior Bilateral Throughout] 11/21/21 11/21/21 11/21/21 10:30 10:45 11:00 Temperature Pulse Rate 116 H 123 H 121 H Pulse Rate [ From Monitor] Respiratory 20 18 20 Rate Blood Pressure 161/86 161/86 119/63 O2 Sat by Pulse 92 87 92 Oximetry O2 Sat by Pulse Oximetry [ Anterior Bilateral Throughout] 11/21/21 11:15 Temperature Pulse Rate 121 H Pulse Rate [ From Monitor] Respiratory Rate Blood Pressure 92/48 O2 Sat by Pulse Oximetry O2 Sat by Pulse Oximetry [ Anterior Bilateral Throughout] - General Appearance General appearance: sedated on ventilator, intubated EENT: mucous membranes dry Neck: no JVD Respiratory: Present: Decreased Breath Sounds Cardiology: tachycardia Gastrointestinal: normoactive bowel sounds Integumentary: no rash, warm and dry - Lab 11/21/21 04:00 11/21/21 04:00 Most recent lab results ABG pH 7.467 pH Units (7.350-7.450) H 11/18/21 04:35 ABG pCO2 37.1 mm Hg 11/18/21 04:35 ABG pO2 110.0 mm Hg (80.0-90.0) H 11/18/21 04:35 ABG HCO3 26.2 mmol/L (20.0-26.0) H 11/18/21 04:35 ABG O2 Saturation 98.1 % (95.0-99.0) 11/18/21 04:35 Calcium 8.9 mg/dL (8.4-10.2) 11/21/21 04:00 Phosphorus 3.70 mg/dL (2.5-4.5) D 11/21/21 04:00 Magnesium 1.90 mg/dL (1.7-2.3) 11/21/21 04:00 Urine Creatinine 189.3 mg/dL (0.1-20.0) H 11/12/21 02:20 Urine Sodium 30 mmol/L 11/12/21 02:20 Medications & Allergies - Medications Allergies/Adverse Reactions: Allergies No Known Allergies Allergy (Verified 11/11/21 20:58) Active Medications: Generic Name Dose Route Start Last Admin Trade Name Freq PRN Reason Stop Dose Admin Acetaminophen 650 mg 11/11/21 22:40 Acetaminophen 325 Mg Tab PO Q4H PRN Pain MILD(1-3)/Fever >100.5/SOTO Albuterol 2.5 mg 11/11/21 22:40 Albuterol 2.5 Mg/3 Ml Nebu IH Q3HRT PRN Shortness Of Breath Aspirin 325 mg 11/17/21 10:00 11/21/21 10:20 Aspirin 325 Mg Tab FEEDTUBE 325 mg QDAY BAO Administration Atorvastatin Calcium 40 mg 11/17/21 22:00 11/20/21 21:23 Atorvastatin 40 Mg Tab FEEDTUBE 40 mg QHS BAO Administration Dextrose 50 ml 11/18/21 13:00 Dextrose 50% In Water (25gm) 50 Ml Syringe IV Q30MIN PRN Hypoglycemia Protocol Docusate Sodium 100 mg 11/17/21 10:00 11/21/21 10:20 Docusate Sodium 100 Mg/10 Ml Oral Liqd FEEDTUBE 100 mg BID BAO Administration Famotidine 20 mg 11/17/21 10:00 11/21/21 10:20 Famotidine 20 Mg Tab FEEDTUBE 20 mg QDAY BAO Administration Fentanyl 50 mcg 11/11/21 20:56 11/12/21 00:12 Fentanyl 100 Mcg/2 Ml Inj IV 50 mcg Q10MIN PRN Administration ANALGESIA Heparin Sodium (Porcine) 5,000 unit 11/12/21 10:00 11/21/21 10:20 Heparin 5,000 Unit/1 Ml Vial SUB-Q 5,000 unit Q12HR BAO Administration Hydrophilic Ointment 1 applic 11/11/21 20:56 Lip Therapy Vaseline TP Q2HR PRN Dry Lips Fentanyl Citrate 2,000 mcg in 100 mls @ 13.608 mls/hr 11/11/21 21:00 11/21/21 10:36 Fentanyl Drip Premix IV 1 mcg/kg/hr TITR BAO 13.608 mls/hr Titration Protocol 1 MCG/KG/HR NORepinephrine/NS 8 MG-250 ML 8 mg in 250 mls @ 3.75 mls/hr 11/11/21 23:00 11/21/21 10:15 Norepinephrine/Ns 8 Mg-250 Ml (Double Conc) IV 4 mcg/min TITRATE BAO 7.5 mls/hr Titration Protocol 2 MCG/MIN Propofol 1,000 mg in 100 mls @ 8.166 mls/hr 11/13/21 09:00 11/21/21 10:36 Diprivan 10 Mg/Ml IV 5 mcg/kg/min TITR BAO 8.166 mls/hr Titration Protocol 5 MCG/KG/MIN Sodium Chloride 100 mls @ 999 mls/hr 11/21/21 08:11 Nacl 0.9% IV LONG PRN Hypotension Insulin Human Lispro 0 unit 11/12/21 00:00 11/21/21 06:23 Insulin Lispro 100 Unit/Ml SUB-Q Not Given Q6HR [facility] Protocol Lorazepam 2 mg 11/21/21 11:00 Lorazepam 2 Mg/Ml Vial IV Q4H PRN Agitation Multi-Ingred Cream/Lotion/Oil/Oint 1 applic 11/11/21 20:56 Mineral Oil/Petrolatum, White Ophth Oint 3.5 Gm OU Q4HR PRN Dry Eye(s) Ondansetron HCl 4 mg 11/11/21 22:40 Ondansetron 4 Mg/2 Ml Inj IV Q8H PRN Nausea And Vomiting Senna 8.6 mg 11/17/21 10:00 11/21/21 10:20 Sennosides 8.6 Mg Tab FEEDTUBE 8.6 mg Q12H BAO Administration Sodium Chloride 10 ml 11/12/21 10:00 11/21/21 10:21 Sodium Chloride 0.9% 10 Ml Flush Syringe IV 10 ml BID BAO Administration Sodium Chloride 10 ml 11/11/21 22:40 Sodium Chloride 0.9% 10 Ml Flush Syringe IV PRN PRN LINE FLUSH
--- NOTE | 2021-11-21 12:40 | Progress Note ---
Assessment and Plan 56 y/o morbidly obese male with acute respiratory failure, requiring intubation and now in acute renal failure and in need of HD 11/20/21: Reviewed Gen Surg note. Will reach out to them for further discussion. Continue aggressive volume removal. Wean Pressors as tolerated. 11/18/21: Await Gen Surg comments as they were checking on OR supplies. If not able to, will start working on transfer as patient will need trach given current clinical state. HD per renal. Wean pressors as tolerated. Guarded to poor prognosis. 11/17/21: Follow up Gen Surge eval, they are checking to see the materials they have in OR. Reviewed neck ultrasound, per their read trachea is only about an 1inch away from the skin. Shocking given his neck size but given the difficulty in intubation and his entrance being anterior, this makes sense. Will defer to surgery call but have no problem with calling for transfer as well. Wean Pressors as tolerated. HD per renal. Continue sedation for RASS of 0. Guarded to poor prognosis. 11/16/21: Given patient body habitus, difficult airway and likely no improvement in current clinical state, will need trach. However given his neck size, I would suggest this be done by ENT as I am not even sure that the bovona XLT is long enough. Ok to consult surgery here but I suggest seeking transfer to a tertiary care facility with ENT to attempt this. Also suggest obtaining neck CT to further evaluate total neck anatomy that way if we need to send this over prior to acceptance we can. Guarded prognosis but mental status is intact. HD per renal. 11/15/21: stop sedation. Attempt PSV. Bipap PRN and QHS. Hopeful extubation today. HD per renal. 11/14/21: Wean PEEP again today and attempt PSV trial. If passes will attempt extubation. HD per renal 11/13/21: HD per renal. No PSV trials today. Wean PEEP after HD. Guarded prognosis. 1. Obtain ABG 2. Place Iglesias catheter 3. Wean Pressors for maps greater than 65 4. Insulin, D50 for Hyperkalemia, and HD per renal 5. Stopped scheduled duonebs 6. Stopped abx 7. Obtain BNP with morning labs 8. Guarded prognosis. CCT 31 minutes. Subjective Date of service: 11/21/21 Principal diagnosis: Acute respiratory failure, Interval history: No acute events. Getting HD with plan to pull off 3 liters. Objective Vital Signs - 12hr 11/21/21 11/21/21 11/21/21 01:00 02:00 03:00 Temperature Pulse Rate 88 86 82 Pulse Rate [ From Monitor] Respiratory 20 21 20 Rate Blood Pressure 91/52 97/53 93/49 O2 Sat by Pulse 96 97 97 Oximetry O2 Sat by Pulse Oximetry [ Anterior Bilateral Throughout] 11/21/21 11/21/21 11/21/21 03:41 04:00 04:28 Temperature 98.8 F Pulse Rate 82 85 Pulse Rate [ 83 From Monitor] Respiratory 20 Rate Blood Pressure 86/48 94/60 O2 Sat by Pulse 99 97 Oximetry O2 Sat by Pulse Oximetry [ Anterior Bilateral Throughout] 11/21/21 11/21/21 11/21/21 05:00 06:00 07:00 Temperature Pulse Rate 90 87 89 Pulse Rate [ From Monitor] Respiratory 20 20 20 Rate Blood Pressure 102/58 101/61 101/58 O2 Sat by Pulse 96 95 96 Oximetry O2 Sat by Pulse Oximetry [ Anterior Bilateral Throughout] 11/21/21 11/21/21 11/21/21 07:15 07:30 07:34 Temperature 99.1 F Pulse Rate 93 H 93 H Pulse Rate [ From Monitor] Respiratory 18 11 L Rate Blood Pressure 106/64 94/56 O2 Sat by Pulse 93 93 Oximetry O2 Sat by Pulse Oximetry [ Anterior Bilateral Throughout] 11/21/21 11/21/21 11/21/21 07:45 08:00 08:15 Temperature 99.1 F Pulse Rate 93 H 88 87 Pulse Rate [ 85 From Monitor] Respiratory 21 20 19 Rate Blood Pressure 111/67 97/54 90/52 O2 Sat by Pulse 96 94 95 Oximetry O2 Sat by Pulse Oximetry [ Anterior Bilateral Throughout] 11/21/21 11/21/21 11/21/21 08:31 08:45 09:00 Temperature 99.1 F Pulse Rate 86 89 92 H Pulse Rate [ From Monitor] Respiratory 21 11 L 22 Rate Blood Pressure 123/73 115/65 115/63 O2 Sat by Pulse 100 96 95 Oximetry O2 Sat by Pulse 89 Oximetry [ Anterior Bilateral Throughout] 11/21/21 11/21/21 11/21/21 09:15 09:20 09:30 Temperature Pulse Rate 90 89 95 H Pulse Rate [ From Monitor] Respiratory 18 20 Rate Blood Pressure 68/31 132/74 110/62 O2 Sat by Pulse 92 89 Oximetry O2 Sat by Pulse Oximetry [ Anterior Bilateral Throughout] 11/21/21 11/21/21 11/21/21 09:45 10:00 10:15 Temperature Pulse Rate 105 H 113 H 110 H Pulse Rate [ From Monitor] Respiratory 18 20 22 Rate Blood Pressure 140/78 157/92 182/94 O2 Sat by Pulse 92 91 Oximetry O2 Sat by Pulse Oximetry [ Anterior Bilateral Throughout] 11/21/21 11/21/21 11/21/21 10:30 10:45 11:00 Temperature Pulse Rate 116 H 123 H 121 H Pulse Rate [ From Monitor] Respiratory 20 18 20 Rate Blood Pressure 161/86 161/86 119/63 O2 Sat by Pulse 92 87 92 Oximetry O2 Sat by Pulse Oximetry [ Anterior Bilateral Throughout] 11/21/21 11/21/21 11/21/21 11:15 11:30 11:31 Temperature Pulse Rate 112 H 114 H 118 H Pulse Rate [ From Monitor] Respiratory 19 25 H Rate Blood Pressure 92/48 118/71 53/39 O2 Sat by Pulse 89 90 Oximetry O2 Sat by Pulse Oximetry [ Anterior Bilateral Throughout] 11/21/21 11/21/21 11/21/21 11:38 11:45 12:00 Temperature 99.3 F 99.3 F Pulse Rate 113 H 109 H Pulse Rate [ 105 H From Monitor] Respiratory 16 20 Rate Blood Pressure 140/87 119/72 O2 Sat by Pulse 92 92 Oximetry O2 Sat by Pulse Oximetry [ Anterior Bilateral Throughout] Constitutional: comatose Eyes: non-icteric ENT: other (orally intubated and sedated) Neck: supple, other (large in circumference) Effort: normal Ascultation: Bilateral: diminished breath sounds Cardiovascular: regular rate and rhythm Gastrointestinal: normoactive bowel sounds Extremities: edema, anasarca Neurologic: unable to assess CBC and BMP: 11/21/21 04:00 11/21/21 04:00 ABG, PT/INR, D-dimer: ABG ABG pH 7.467 pH Units (7.350-7.450) H 11/18/21 04:35 ABG pCO2 37.1 mm Hg 11/18/21 04:35 ABG pO2 110.0 mm Hg (80.0-90.0) H 11/18/21 04:35 ABG O2 Saturation 98.1 % (95.0-99.0) 11/18/21 04:35 Abnormal lab findings: Abnormal Labs 11/11/21 11/11/21 11/11/21 19:49 19:49 23:29 WBC 11.5 H RBC Hgb 10.1 L Hct 34.8 L MCH 27 L MCHC 29 L RDW 20.1 H Lymph % (Auto) 10.0 L Dickey % (Auto) 8.8 H Lymph # (Auto) 1.1 L Dickey # (Auto) 1.0 H Seg Neutrophils % 79.8 H Seg Neuts % (Manual) Lymphocytes % (Manual) Seg Neutrophils # 9.2 H Seg Neutrophils # Man Lymphocytes # (Manual) ABG pH ABG pO2 ABG HCO3 ABG O2 Saturation ABG Base Excess ABG Hemoglobin Sodium Potassium 7.6 H* Chloride 107.8 H Carbon Dioxide 13 L BUN 107 H Creatinine 13.8 H Glucose POC Glucose Calcium 7.5 L Phosphorus Magnesium Iron TIBC Total Creatine Kinase 268 H Troponin T 0.324 H* NT-Pro-B Natriuret Pep Total Protein 9.1 H Albumin 3.0 L PTH Intact Urine WBC (Auto) Urine Creatinine 11/11/21 11/11/21 11/12/21 23:29 23:29 02:20 WBC RBC Hgb Hct MCH MCHC RDW Lymph % (Auto) Dickey % (Auto) Lymph # (Auto) D[place]key # (Auto) Seg Neutrophils % Seg Neuts % (Manual) Lymphocytes % (Manual) Seg Neutrophils # Seg Neutrophils # Man Lymphocytes # (Manual) ABG pH ABG pO2 ABG HCO3 ABG O2 Saturation ABG Base Excess ABG Hemoglobin Sodium Potassium Chloride Carbon Dioxide BUN Creatinine Glucose POC Glucose Calcium Phosphorus Magnesium Iron 24 L TIBC 157 L Total Creatine Kinase Troponin T NT-Pro-B Natriuret Pep Total Protein Albumin PTH Intact 1174 H Urine WBC (Auto) Urine Creatinine 189.3 H 11/12/21 11/12/21 11/12/21 02:20 02:28 06:55 WBC 20.5 H RBC 3.54 L Hgb 9.4 L Hct 32.3 L MCH 27 L MCHC 29 L RDW 20.0 H Lymph % (Auto) D[place]key % (Auto) Lymph # (Auto) D[place]key # (Auto) Seg Neutrophils % Seg Neuts % (Manual) 89.0 H Lymphocytes % (Manual) 0 L Seg Neutrophils # Seg Neutrophils # Man 18.2 H Lymphocytes # (Manual) 0.0 L ABG pH 7.172 L* ABG pO2 100.6 H ABG HCO3 17.4 L ABG O2 Saturation ABG Base Excess -10.6 L ABG Hemoglobin 9.4 L Sodium Potassium Chloride Carbon Dioxide BUN Creatinine Glucose POC Glucose Calcium Phosphorus Magnesium Iron TIBC Total Creatine Kinase Troponin T NT-Pro-B Natriuret Pep Total Protein Albumin PTH Intact Urine WBC (Auto) 12.0 H Urine Creatinine 11/12/21 11/12/21 11/12/21 06:55 09:10 12:01 WBC RBC Hgb Hct MCH MCHC RDW Lymph % (Auto) D[place]key % (Auto) Lymph # (Auto) D[place]key # (Auto) Seg Neutrophils % Seg Neuts % (Manual) Lymphocytes % (Manual) Seg Neutrophils # Seg Neutrophils # Man Lymphocytes # (Manual) ABG pH 7.296 L ABG pO2 237.3 H ABG HCO3 ABG O2 Saturation 99.3 H ABG Base Excess -6.0 L ABG Hemoglobin 8.8 L Sodium Potassium 5.5 H D Chloride 107.1 H Carbon Dioxide 19 L BUN 78 H Creatinine 9.4 H Glucose 119 H POC Glucose 106 H Calcium 8.1 L Phosphorus Magnesium Iron TIBC Total Creatine Kinase Troponin T NT-Pro-B Natriuret Pep Total Protein Albumin PTH Intact Urine WBC (Auto) Urine Creatinine 11/12/21 11/12/21 11/12/21 16:46 16:46 22:30 WBC RBC Hgb Hct MCH MCHC RDW Lymph % (Auto) D[place]key % (Auto) Lymph # (Auto) D[place]key # (Auto) Seg Neutrophils % Seg Neuts % (Manual) Lymphocytes % (Manual) Seg Neutrophils # Seg Neutrophils # Man Lymphocytes # (Manual) ABG pH ABG pO2 ABG HCO3 ABG O2 Saturation ABG Base Excess ABG Hemoglobin Sodium 146 H Potassium Chloride 108.2 H Carbon Dioxide 21 L BUN 66 H Creatinine 9.8 H Glucose 125 H POC Glucose Calcium 7.8 L Phosphorus Magnesium Iron TIBC Total Creatine Kinase Troponin T 0.319 H* 0.313 H* NT-Pro-B Natriuret Pep Total Protein Albumin PTH Intact Urine WBC (Auto) Urine Creatinine 11/12/21 11/12/21 11/13/21 23:18 Unknown 04:00 WBC 17.2 H RBC 3.09 L Hgb 8.4 L Hct 27.5 L MCH 27 L MCHC 30 L RDW 19.6 H Lymph % (Auto) D[place]key % (Auto) Lymph # (Auto) D[place]key # (Auto) Seg Neutrophils % Seg Neuts % (Manual) Lymphocytes % (Manual) Seg Neutrophils # Seg Neutrophils # Man Lymphocytes # (Manual) ABG pH ABG pO2 ABG HCO3 ABG O2 Saturation ABG Base Excess ABG Hemoglobin Sodium Potassium Chloride Carbon Dioxide BUN Creatinine Glucose POC Glucose 120 H Calcium Phosphorus Magnesium Iron TIBC Total Creatine Kinase Troponin T NT-Pro-B Natriuret Pep 3674 H Total Protein Albumin PTH Intact Urine WBC (Auto) Urine Creatinine 11/13/21 11/13/21 11/13/21 04:00 04:00 05:23 WBC RBC Hgb Hct MCH MCHC RDW Lymph % (Auto) D[place]key % (Auto) Lymph # (Auto) D[place]key # (Auto) Seg Neutrophils % Seg Neuts % (Manual) Lymphocytes % (Manual) Seg Neutrophils # Seg Neutrophils # Man Lymphocytes # (Manual) ABG pH 7.274 L ABG pO2 93.2 H ABG HCO3 ABG O2 Saturation ABG Base Excess -3.9 L ABG Hemoglobin 8.2 L Sodium Potassium Chloride Carbon Dioxide 21 L BUN 71 H Creatinine 9.9 H Glucose 128 H POC Glucose 117 H Calcium 7.7 L Phosphorus 5.10 H Magnesium 1.60 L Iron TIBC Total Creatine Kinase Troponin T NT-Pro-B Natriuret Pep Total Protein Albumin PTH Intact Urine WBC (Auto) Urine Creatinine 11/13/21 11/13/21 11/14/21 16:20 23:31 04:10 WBC RBC Hgb Hct MCH MCHC RDW Lymph % (Auto) D[place]key % (Auto) Lymph # (Auto) D[place]key # (Auto) Seg Neutrophils % Seg Neuts % (Manual) Lymphocytes % (Manual) Seg Neutrophils # Seg Neutrophils # Man Lymphocytes # (Manual) ABG pH ABG pO2 107.1 H ABG HCO3 ABG O2 Saturation ABG Base Excess ABG Hemoglobin 6.5 L Sodium Potassium Chloride Carbon Dioxide BUN Creatinine Glucose POC Glucose 125 H 123 H Calcium Phosphorus Magnesium Iron TIBC Total Creatine Kinase Troponin T NT-Pro-B Natriuret Pep Total Protein Albumin PTH Intact Urine WBC (Auto) Urine Creatinine 11/14/21 11/14/21 11/14/21 06:30 06:30 15:00 WBC 11.2 H RBC 3.03 L Hgb 8.1 L Hct 26.6 L MCH 27 L MCHC 30 L RDW 19.3 H Lymph % (Auto) D[place]key % (Auto) Lymph # (Auto) D[place]key # (Auto) Seg Neutrophils % Seg Neuts % (Manual) Lymphocytes % (Manual) Seg Neutrophils # Seg Neutrophils # Man Lymphocytes # (Manual) ABG pH ABG pO2 ABG HCO3 ABG O2 Saturation ABG Base Excess ABG Hemoglobin Sodium Potassium 3.0 L D 3.4 L Chloride Carbon Dioxide BUN 41 H Creatinine 7.0 H Glucose 107 H POC Glucose Calcium 7.5 L Phosphorus Magnesium 1.60 L Iron TIBC Total Creatine Kinase Troponin T NT-Pro-B Natriuret Pep Total Protein Albumin PTH Intact Urine WBC (Auto) Urine Creatinine 11/14/21 11/15/21 11/15/21 17:24 04:00 04:00 WBC 11.3 H RBC 3.00 L Hgb 8.1 L Hct 26.3 L MCH 27 L MCHC 31 L RDW 19.2 H Lymph % (Auto) D[place]key % (Auto) Lymph # (Auto) D[place]key # (Auto) Seg Neutrophils % Seg Neuts % (Manual) Lymphocytes % (Manual) Seg Neutrophils # Seg Neutrophils # Man Lymphocytes # (Manual) ABG pH ABG pO2 ABG HCO3 ABG O2 Saturation ABG Base Excess ABG Hemoglobin Sodium Potassium 3.4 L Chloride Carbon Dioxide BUN 32 H Creatinine 5.9 H Glucose 117 H POC Glucose 124 H Calcium 8.3 L Phosphorus Magnesium Iron TIBC Total Creatine Kinase Troponin T NT-Pro-B Natriuret Pep Total Protein Albumin PTH Intact Urine WBC (Auto) Urine Creatinine 11/15/21 11/15/21 11/16/21 13:58 16:20 04:00 WBC 13.2 H RBC 2.88 L Hgb 7.8 L Hct 25.2 L MCH 27 L MCHC 31 L RDW 19.1 H Lymph % (Auto) D[place]key % (Auto) Lymph # (Auto) D[place]key # (Auto) Seg Neutrophils % Seg Neuts % (Manual) Lymphocytes % (Manual) Seg Neutrophils # Seg Neutrophils # Man Lymphocytes # (Manual) ABG pH 7.335 L ABG pO2 254.0 H ABG HCO3 26.2 H ABG O2 Saturation 99.4 H ABG Base Excess ABG Hemoglobin 8.5 L Sodium Potassium Chloride Carbon Dioxide BUN Creatinine Glucose POC Glucose 132 H Calcium Phosphorus Magnesium Iron TIBC Total Creatine Kinase Troponin T NT-Pro-B Natriuret Pep Total Protein Albumin PTH Intact Urine WBC (Auto) Urine Creatinine 11/16/21 11/16/21 11/16/21 04:00 04:05 11:06 WBC RBC Hgb Hct MCH MCHC RDW Lymph % (Auto) D[place]key % (Auto) Lymph # (Auto) [place]key # (Auto) Seg Neutrophils % Seg Neuts % (Manual) Lymphocytes % (Manual) Seg Neutrophils # Seg Neutrophils # Man Lymphocytes # (Manual) ABG pH ABG pO2 115.6 H ABG HCO3 ABG O2 Saturation ABG Base Excess ABG Hemoglobin 8.1 L Sodium Potassium Chloride Carbon Dioxide BUN 44 H Creatinine 7.7 H Glucose 104 H POC Glucose 106 H Calcium 7.9 L Phosphorus Magnesium Iron TIBC Total Creatine Kinase Troponin T NT-Pro-B Natriuret Pep Total Protein Albumin PTH Intact Urine WBC (Auto) Urine Creatinine 11/16/21 11/16/21 11/17/21 18:05 23:51 04:15 WBC 11.8 H RBC 3.02 L Hgb 8.1 L Hct 26.9 L MCH 27 L MCHC 30 L RDW 18.9 H Lymph % (Auto) D[place]key % (Auto) Lymph # (Auto) D[place]key # (Auto) Seg Neutrophils % Seg Neuts % (Manual) Lymphocytes % (Manual) Seg Neutrophils # Seg Neutrophils # Man Lymphocytes # (Manual) ABG pH ABG pO2 ABG HCO3 ABG O2 Saturation ABG Base Excess ABG Hemoglobin Sodium Potassium Chloride Carbon Dioxide BUN Creatinine Glucose POC Glucose 109 H 118 H Calcium Phosphorus Magnesium Iron TIBC Total Creatine Kinase Troponin T NT-Pro-B Natriuret Pep Total Protein Albumin PTH Intact Urine WBC (Auto) Urine Creatinine 11/17/21 11/17/21 11/17/21 04:15 04:25 11:25 WBC RBC Hgb Hct MCH MCHC RDW Lymph % (Auto) D[place]key % (Auto) Lymph # (Auto) [place]key # (Auto) Seg Neutrophils % Seg Neuts % (Manual) Lymphocytes % (Manual) Seg Neutrophils # Seg Neutrophils # Man Lymphocytes # (Manual) ABG pH ABG pO2 153.8 H ABG HCO3 ABG O2 Saturation ABG Base Excess ABG Hemoglobin 8.3 L Sodium Potassium Chloride Carbon Dioxide BUN 33 H Creatinine 6.2 H Glucose 118 H POC Glucose 108 H Calcium Phosphorus Magnesium Iron TIBC Total Creatine Kinase Troponin T NT-Pro-B Natriuret Pep Total Protein Albumin PTH Intact Urine WBC (Auto) Urine Creatinine 11/18/21 11/18/21 11/18/21 04:00 04:00 04:35 WBC RBC 2.88 L Hgb 7.8 L Hct 25.3 L MCH 27 L MCHC 31 L RDW 18.7 H Lymph % (Auto) D[place]key % (Auto) Lymph # (Auto) D[place]key # (Auto) Seg Neutrophils % Seg Neuts % (Manual) Lymphocytes % (Manual) Seg Neutrophils # Seg Neutrophils # Man Lymphocytes # (Manual) ABG pH 7.467 H ABG pO2 110.0 H ABG HCO3 26.2 H ABG O2 Saturation ABG Base Excess ABG Hemoglobin 8.1 L Sodium Potassium Chloride Carbon Dioxide BUN 28 H Creatinine 5.5 H Glucose POC Glucose Calcium Phosphorus Magnesium Iron TIBC Total Creatine Kinase Troponin T NT-Pro-B Natriuret Pep Total Protein Albumin PTH Intact Urine WBC (Auto) Urine Creatinine 11/18/21 11/19/21 11/19/21 11:50 04:00 11:30 WBC RBC Hgb Hct MCH MCHC RDW Lymph % (Auto) D[place]key % (Auto) Lymph # (Auto) [place]key # (Auto) Seg Neutrophils % Seg Neuts % (Manual) Lymphocytes % (Manual) Seg Neutrophils # Seg Neutrophils # Man Lymphocytes # (Manual) ABG pH ABG pO2 ABG HCO3 ABG O2 Saturation ABG Base Excess ABG Hemoglobin Sodium Potassium Chloride Carbon Dioxide BUN 26 H Creatinine 4.7 H Glucose 110 H POC Glucose 131 H 106 H Calcium Phosphorus Magnesium Iron TIBC Total Creatine Kinase Troponin T NT-Pro-B Natriuret Pep Total Protein Albumin PTH Intact Urine WBC (Auto) Urine Creatinine 11/19/21 11/20/21 11/20/21 17:09 00:14 04:00 WBC RBC Hgb Hct MCH MCHC RDW Lymph % (Auto) D[place]key % (Auto) Lymph # (Auto) [place]key # (Auto) Seg Neutrophils % Seg Neuts % (Manual) Lymphocytes % (Manual) Seg Neutrophils # Seg Neutrophils # Man Lymphocytes # (Manual) ABG pH ABG pO2 ABG HCO3 ABG O2 Saturation ABG Base Excess ABG Hemoglobin Sodium 134 L Potassium Chloride 94.4 L Carbon Dioxide BUN 25 H Creatinine 4.6 H Glucose 117 H POC Glucose 129 H 115 H Calcium Phosphorus Magnesium Iron TIBC Total Creatine Kinase Troponin T NT-Pro-B Natriuret Pep Total Protein Albumin PTH Intact Urine WBC (Auto) Urine Creatinine 11/20/21 11/21/21 11/21/21 11:36 04:00 04:00 WBC 12.0 H RBC 2.85 L Hgb 7.8 L Hct 24.8 L MCH MCHC RDW 18.5 H Lymph % (Auto) D[place]key % (Auto) Lymph # (Auto) [place]key # (Auto) Seg Neutrophils % Seg Neuts % (Manual) Lymphocytes % (Manual) Seg Neutrophils # Seg Neutrophils # Man Lymphocytes # (Manual) ABG pH ABG pO2 ABG HCO3 ABG O2 Saturation ABG Base Excess ABG Hemoglobin Sodium 133 L Potassium Chloride 95.3 L Carbon Dioxide BUN 40 H Creatinine 6.2 H Glucose 103 H POC Glucose 117 H Calcium Phosphorus Magnesium Iron TIBC Total Creatine Kinase Troponin T NT-Pro-B Natriuret Pep Total Protein Albumin PTH Intact Urine WBC (Auto) Urine Creatinine Allied health notes reviewed: nursing
--- NOTE | 2021-11-21 14:46 | XRay Report ---
ABDOMEN 1 VIEW 11/21/2021 INDICATION / CLINICAL INFORMATION: constipation; new OG tube placement. COMPARISON: 11/15/2021 FINDINGS: TUBES / LINES: Enteric tube terminates within the stomach with the side-port at the GE junction, cons ider advancement. BOWEL GAS PATTERN: No significant abnormality. FREE AIR / EXTRALUMINAL GAS: None seen. ADDITIONAL FINDINGS: No significant additional findings. IMPRESSION: 1. Enteric tube terminates within the stomach with side-port at the GE junction, consider enhancement . Signer Name: Magan Cox DO Signed: 11/21/2021 2:41 PM Workstation Name: [id number]
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
--- NOTE | 2021-11-21 16:09 | XRay Report ---
ABDOMEN 1 VIEW(S) INDICATION / CLINICAL INFORMATION: OG tube new placement. COMPARISON: None available. FINDINGS: TUBES / LINES: NG tube tip at the third duodenum. BOWEL GAS PATTERN: No significant abnormality. ADDITIONAL FINDINGS: No significant additional findings. IMPRESSION: NG tube tip at third portion of duodenum. Signer Name: Mark Miller MD Signed: 11/21/2021 4:04 PM Workstation Name: [id number]
[2021-11-21] MEDS ORDERED: MAGNESIUM CITRATE 300 ML ORAL LIQD PO ONE (17:36)
[2021-11-21] MEDS: fentaNYL 100 MCG/2 ML INJ IV PRN (20:58)
--- NOTE | 2021-11-22 00:39 | XRay Report ---
CHEST 1 VIEW 11/21/2021 11:33 PM INDICATION / CLINICAL INFORMATION: OETT placement. COMPARISON: Exam On 11/21/2021 FINDINGS: SUPPORT DEVICES: The ET tube tip is about 10 cm above the barbra. Advancement should be considered. HEART / MEDIASTINUM: Stable. LUNGS / PLEURA: Stable diffuse bilateral pulmonary opacities. No pneumothorax. ADDITIONAL FINDINGS: No significant additional findings. IMPRESSION: 1. ET tube tip is about 10 cm above the barbra. Some advancement should be considered. Signer Name: Greg Branch MD Signed: 11/22/2021 12:35 AM Workstation Name: [id number]
[2021-11-22] MEDS: INSULIN LISPRO 100 UNIT/ML SUB-Q SCH ×3 (00:55→18:56)
[2021-11-22] MEDS: fentaNYL 100 MCG/2 ML INJ IV PRN (03:45)
--- NOTE | 2021-11-22 04:38 | XRay Report ---
CHEST 1 VIEW 11/22/2021 3:26 AM INDICATION / CLINICAL INFORMATION: OETT placement. COMPARISON: Exam done earlier today FINDINGS: SUPPORT DEVICES: ET tube tip is about 10 cm above the barbra. HEART / MEDIASTINUM: Stable. LUNGS / PLEURA: Stable diffuse bilateral pulmonary opacities. No pneumothorax. ADDITIONAL FINDINGS: No significant additional findings. IMPRESSION: 1. Persistent ET tube about 10 cm above the barbra. Signer Name: Greg Branch MD Signed: 11/22/2021 4:33 AM Workstation Name: [email or web address]
[2021-11-22 04:40] LABS: Hematocrit 26.6 % (35.5-45.6); Hemoglobin 8.1 gm/dl (11.8-15.2); Mean Corpuscular HGB Conc 31 % (32-34); Mean Corpuscular Volume 88 fl (84-94); Platelet Count 243 K/mm3 (140-440); Red Blood Count 3.01 M/mm3 (3.65-5.03); Red Cell Distribution Width 18.3 % (13.2-15.2)
[2021-11-22 04:52] LABS: INR 1.01 (0.87-1.13)
[2021-11-22 04:59] LABS: Calcium 8.6 mg/dL (8.4-10.2)
[2021-11-22] MEDS: fentaNYL DRIP Premix 2,000 MCG/100 ML BAG IV SCH ×5 (08:00→22:40)
[2021-11-22] MEDS ORDERED: WATER FOR IRRIG STERILE 250 ML BOTTLE IR ONE (09:04)
--- NOTE | 2021-11-22 09:10 | Anesthesia Consultation ---
Anesthesia Consult and Med Hx Date of service: 11/22/21 - Airway Intubation Access Assessment: Possibly Difficult (oETT in situ) - Pre-Operative Health Status ASA Pre-Surgery Classification: ASA4 Proposed Anesthetic Plan: General - Pulmonary Hx Respiratory Symptoms: Yes (vent dependent respiratory failure) - Cardiovascular System Hx Hypertension: Yes (intermittently on pressors this admission) - Endocrine Hx Renal Disease: Yes (ARF on HD) - Hematic Hx Anemia: Yes - Other Systems Hx Obesity: Yes (per chart review, patient weighs >500lbs with BMI 88) - Additional Comments Anesthesia Medical History Comments: FiO2 40% /Peep 8, normotensive w/ norepi off, propofol and fentanyl gtt for sedation. Anesthesia consent obtained from Kristen Gilliland (sister) over the phone.
[2021-11-22] MEDS ORDERED: LIDOCAINE 2%/EPINEPHRINE 1:200,000 VIAL (20 ML) INFILTRATI ONE (09:14)
[2021-11-22 09:17] LABS: Basophils # (Auto) 0.1 K/mm3 (0.0-0.1); Basophils % (Auto) 0.4 % (0.0-1.8); Eosinophils # (Auto) 0.2 K/mm3 (0.0-0.4); Eosinophils % (Auto) 1.4 % (0.0-4.3); Hematocrit 26.3 % (35.5-45.6); Hemoglobin 7.8 gm/dl (11.8-15.2); Lymphocytes # (Auto) 0.8 K/mm3 (1.2-5.4); Lymphocytes % (Auto) 5.7 % (13.4-35.0); Mean Corpuscular HGB Conc 30 % (32-34); Mean Corpuscular Volume 89 fl (84-94); Monocytes # (Auto) 1.9 K/mm3 (0.0-0.8); Platelet Count 244 K/mm3 (140-440); Red Blood Count 2.95 M/mm3 (3.65-5.03); Red Cell Distribution Width 18.9 % (13.2-15.2)
[2021-11-22] MEDS ORDERED: propofoL 200 MG/20 ML VIAL IV ONE (09:22)
[2021-11-22] MEDS ORDERED: ROCURONIUM 50 MG/5 ML INJ IV ONE (09:22)
[2021-11-22 09:34] LABS: Creatine Kinase MB 2.4 ng/mL (0.0-4.0)
[2021-11-22 09:36] LABS: Calcium 8.6 mg/dL (8.4-10.2)
[2021-11-22] MEDS ORDERED: PHENYLEPHRINE/NS 1,000 MCG/10 ML SYRINGE (OR USE) IV ONE (10:12)
[2021-11-22] MEDS ORDERED: ePHEDrine SULFATE 50 MG/1 ML INJ ONE (10:12)
--- NOTE | 2021-11-22 10:20 | Progress Note ---
Assessment and Plan 56 y/o morbidly obese male with acute respiratory failure, requiring intubation and now in acute renal failure and in need of HD 11/22/21: Follow up post op. Will need LTACH. HD per renal, need to ask them if he will need permacath as well. 11/21/21: Reviewed Gen Surg note. Will reach out to them for further discussion. Continue aggressive volume removal. Wean Pressors as tolerated. 11/18/21: Await Gen Surg comments as they were checking on OR supplies. If not able to, will start working on transfer as patient will need trach given current clinical state. HD per renal. Wean pressors as tolerated. Guarded to poor prognosis. 11/17/21: Follow up Gen Surge eval, they are checking to see the materials they have in OR. Reviewed neck ultrasound, per their read trachea is only about an 1inch away from the skin. Shocking given his neck size but given the difficulty in intubation and his entrance being anterior, this makes sense. Will defer to surgery call but have no problem with calling for transfer as well. Wean Press ors as tolerated. HD per renal. Continue sedation for RASS of 0. Guarded to poor prognosis. 11/16/21: Given patient body habitus, difficult airway and likely no improvement in current clinical state, will need trach. However given his neck size, I would suggest this be done by ENT as I am not even sure that the bovona XLT is long enough. Ok to consult surgery here but I suggest seeking transfer to a tertiary care facility with ENT to attempt this. Also suggest obtaining neck CT to further evaluate total neck anatomy that way if we need to send this over prior to acceptance we can. Guarded prognosis but mental status is intact. HD per renal. 11/15/21: stop sedation. Attempt PSV. Bipap PRN and QHS. Hopeful extubation today. HD per renal. 11/14/21: Wean PEEP again today and attempt PSV trial. If passes will attempt extubation. HD per renal 11/13/21: HD per renal. No PSV trials today. Wean PEEP after HD. Guarded prognosis. 1. Obtain ABG 2. Place Iglesias catheter 3. Wean Pressors for maps greater than 65 4. Insulin, D50 for Hyperkalemia, and HD per renal 5. Stopped scheduled duonebs 6. Stopped abx 7. Obtain BNP with morning labs 8. Guarded prognosis. CCT 31 minutes. Subjective Date of service: 11/22/21 Principal diagnosis: Acute respiratory failure, Interval history: Surgery has decided to proceed with trach. Patient leaving for OR now. Last night, tube has been dislodged and as being read as 10cm above the barbra. Spoke with RT, still with good volumes and good sats. Objective Vital Signs - 12hr 11/21/21 11/21/21 11/21/21 22:30 22:45 23:00 Temperature Pulse Rate 101 H 119 H 112 H Pulse Rate [ From Monitor] Respiratory 20 29 H 19 Rate Blood Pressure 112/63 116/79 125/71 O2 Sat by Pulse 94 95 93 Oximetry 11/21/21 11/21/21 11/21/21 23:15 23:28 23:30 Temperature Pulse Rate 116 H 103 H 102 H Pulse Rate [ From Monitor] Respiratory 22 20 23 Rate Blood Pressure 132/81 132/81 114/69 O2 Sat by Pulse 94 94 94 Oximetry 11/21/21 11/21/21 11/21/21 23:40 23:45 23:50 Temperature Pulse Rate 96 H 106 H 98 H Pulse Rate [ From Monitor] Respiratory 24 Rate Blood Pressure 110/56 110/56 O2 Sat by Pulse 93 96 Oximetry 11/22/21 11/22/21 11/22/21 00:00 00:15 00:30 Temperature Pulse Rate 97 H 96 H 96 H Pulse Rate [ From Monitor] Respiratory 19 17 20 Rate Blood Pressure 100/55 95/50 104/58 O2 Sat by Pulse 93 93 94 Oximetry 11/22/21 11/22/21 11/22/21 00:40 00:45 00:55 Temperature Pulse Rate 96 H 97 H Pulse Rate [ From Monitor] Respiratory 17 22 Rate Blood Pressure 103/63 O2 Sat by Pulse 95 94 Oximetry 11/22/21 11/22/21 11/22/21 01:00 01:05 01:15 Temperature 98.2 F Pulse Rate 97 H 90 Pulse Rate [ From Monitor] Respiratory 19 16 Rate Blood Pressure 94/40 84/51 O2 Sat by Pulse 93 96 Oximetry 11/22/21 11/22/21 11/22/21 01:30 01:45 02:00 Temperature Pulse Rate 95 H 95 H 91 H Pulse Rate [ From Monitor] Respiratory 15 20 16 Rate Blood Pressure 89/50 89/60 86/50 O2 Sat by Pulse 95 95 94 Oximetry 11/22/21 11/22/21 11/22/21 02:15 02:30 02:45 Temperature Pulse Rate 88 101 H 100 H Pulse Rate [ From Monitor] Respiratory 17 39 H Rate Blood Pressure 107/65 107/65 108/64 O2 Sat by Pulse 100 Oximetry 11/22/21 11/22/21 11/22/21 03:00 03:15 03:30 Temperature Pulse Rate 111 H 109 H 108 H Pulse Rate [ From Monitor] Respiratory 21 40 H 20 Rate Blood Pressure 152/78 128/83 123/82 O2 Sat by Pulse 100 100 100 Oximetry 11/22/21 11/22/21 11/22/21 03:45 04:00 04:15 Temperature 98.3 F Pulse Rate 100 H 100 H 97 H Pulse Rate [ From Monitor] Respiratory 18 20 23 Rate Blood Pressure 130/74 135/76 135/68 O2 Sat by Pulse 100 100 100 Oximetry 11/22/21 11/22/21 11/22/21 04:30 04:41 04:45 Temperature Pulse Rate 98 H 96 H 99 H Pulse Rate [ From Monitor] Respiratory 13 21 Rate Blood Pressure 116/59 122/74 122/75 O2 Sat by Pulse 93 99 100 Oximetry 11/22/21 11/22/21 11/22/21 05:00 05:15 05:20 Temperature Pulse Rate 96 H 95 H 95 H Pulse Rate [ From Monitor] Respiratory 23 23 22 Rate Blood Pressure 116/78 122/74 O2 Sat by Pulse 100 100 94 Oximetry 11/22/21 11/22/21 11/22/21 05:30 05:45 06:00 Temperature Pulse Rate 95 H 89 94 H Pulse Rate [ From Monitor] Respiratory 14 14 21 Rate Blood Pressure 116/72 120/68 133/76 O2 Sat by Pulse 100 99 99 Oximetry 11/22/21 11/22/21 11/22/21 06:15 06:30 06:45 Temperature Pulse Rate 91 H 90 91 H Pulse Rate [ From Monitor] Respiratory 21 18 15 Rate Blood Pressure 116/69 132/75 109/65 O2 Sat by Pulse 99 100 100 Oximetry 11/22/21 11/22/21 11/22/21 07:00 07:15 07:30 Temperature Pulse Rate 96 H 91 H 89 Pulse Rate [ From Monitor] Respiratory 19 23 10 L Rate Blood Pressure 109/65 128/74 118/71 O2 Sat by Pulse 100 100 100 Oximetry 11/22/21 11/22/21 11/22/21 07:46 08:00 08:16 Temperature 98.3 F Pulse Rate 85 84 82 Pulse Rate [ 104 H From Monitor] Respiratory 12 15 20 Rate Blood Pressure 118/74 105/57 105/57 O2 Sat by Pulse 100 100 100 Oximetry 11/22/21 11/22/21 11/22/21 08:30 08:43 08:46 Temperature Pulse Rate 80 79 81 Pulse Rate [ From Monitor] Respiratory 20 17 Rate Blood Pressure 104/59 104/54 104/59 O2 Sat by Pulse 96 100 100 Oximetry 11/22/21 09:00 Temperature Pulse Rate 83 Pulse Rate [ From Monitor] Respiratory 22 Rate Blood Pressure 100/67 O2 Sat by Pulse 98 Oximetry Constitutional: comatose Eyes: non-icteric ENT: other (orally intubated and sedated) Neck: supple, other (large in circumference) Effort: normal Ascultation: Bilateral: diminished breath sounds Cardiovascular: regular rate and rhythm Gastrointestinal: normoactive bowel sounds Extremities: edema, anasarca Neurologic: unable to assess CBC and BMP: 11/22/21 08:30 11/22/21 08:30 ABG, PT/INR, D-dimer: ABG ABG pH 7.467 pH Units (7.350-7.450) H 11/18/21 04:35 ABG pCO2 37.1 mm Hg 11/18/21 04:35 ABG pO2 110.0 mm Hg (80.0-90.0) H 11/18/21 04:35 ABG O2 Saturation 98.1 % (95.0-99.0) 11/18/21 04:35 PT/INR, D-dimer PT 14.4 Sec. (12.2-14.9) 11/22/21 04:00 INR 1.01 (0.87-1.13) 11/22/21 04:00 Abnormal lab findings: Abnormal Labs 11/11/21 11/11/21 11/11/21 19:49 19:49 23:29 WBC 11.5 H RBC Hgb 10.1 L Hct 34.8 L MCH 27 L MCHC 29 L RDW 20.1 H Lymph % (Auto) 10.0 L Greer % (Auto) 8.8 H Lymph # (Auto) 1.1 L Greer # (Auto) 1.0 H Seg Neutrophils % 79.8 H Seg Neuts % (Manual) Lymphocytes % (Manual) Seg Neutrophils # 9.2 H Seg Neutrophils # Man Lymphocytes # (Manual) ABG pH ABG pO2 ABG HCO3 ABG O2 Saturation ABG Base Excess ABG Hemoglobin Sodium Potassium 7.6 H* Chloride 107.8 H Carbon Dioxide 13 L BUN 107 H Creatinine 13.8 H Glucose POC Glucose Calcium 7.5 L Phosphorus Magnesium Iron TIBC Total Creatine Kinase 268 H Troponin T 0.324 H* NT-Pro-B Natriuret Pep Total Protein 9.1 H Albumin 3.0 L PTH Intact Urine WBC (Auto) Urine Creatinine 11/11/21 11/11/21 11/12/21 23:29 23:29 02:20 WBC RBC Hgb Hct MCH MCHC RDW Lymph % (Auto) Greer % (Auto) Lymph # (Auto) Greer # (Auto) Seg Neutrophils % Seg Neuts % (Manual) Lymphocytes % (Manual) Seg Neutrophils # Seg Neutrophils # Man Lymphocytes # (Manual) ABG pH ABG pO2 ABG HCO3 ABG O2 Saturation ABG Base Excess ABG Hemoglobin Sodium Potassium Chloride Carbon Dioxide BUN Creatinine Glucose POC Glucose Calcium Phosphorus Magnesium Iron 24 L TIBC 157 L Total Creatine Kinase Troponin T NT-Pro-B Natriuret Pep Total Protein Albumin PTH Intact 1174 H Urine WBC (Auto) Urine Creatinine 189.3 H 11/12/21 11/12/21 11/12/21 02:20 02:28 06:55 WBC 20.5 H RBC 3.54 L Hgb 9.4 L Hct 32.3 L MCH 27 L MCHC 29 L RDW 20.0 H Lymph % (Auto) Greer % (Auto) Lymph # (Auto) Greer # (Auto) Seg Neutrophils % Seg Neuts % (Manual) 89.0 H Lymphocytes % (Manual) 0 L Seg Neutrophils # Seg Neutrophils # Man 18.2 H Lymphocytes # (Manual) 0.0 L ABG pH 7.172 L* ABG pO2 100.6 H ABG HCO3 17.4 L ABG O2 Saturation ABG Base Excess -10.6 L ABG Hemoglobin 9.4 L Sodium Potassium Chloride Carbon Dioxide BUN Creatinine Glucose POC Glucose Calcium Phosphorus Magnesium Iron TIBC Total Creatine Kinase Troponin T NT-Pro-B Natriuret Pep Total Protein Albumin PTH Intact Urine WBC (Auto) 12.0 H Urine Creatinine 11/12/21 11/12/21 11/12/21 06:55 09:10 12:01 WBC RBC Hgb Hct MCH MCHC RDW Lymph % (Auto) Greer % (Auto) Lymph # (Auto) Greer # (Auto) Seg Neutrophils % Seg Neuts % (Manual) Lymphocytes % (Manual) Seg Neutrophils # Seg Neutrophils # Man Lymphocytes # (Manual) ABG pH 7.296 L ABG pO2 237.3 H ABG HCO3 ABG O2 Saturation 99.3 H ABG Base Excess -6.0 L ABG Hemoglobin 8.8 L Sodium Potassium 5.5 H D Chloride 107.1 H Carbon Dioxide 19 L BUN 78 H Creatinine 9.4 H Glucose 119 H POC Glucose 106 H Calcium 8.1 L Phosphorus Magnesium Iron TIBC Total Creatine Kinase Troponin T NT-Pro-B Natriuret Pep Total Protein Albumin PTH Intact Urine WBC (Auto) Urine Creatinine 11/12/21 11/12/21 11/12/21 16:46 16:46 22:30 WBC RBC Hgb Hct MCH MCHC RDW Lymph % (Auto) Greer % (Auto) Lymph # (Auto) Greer # (Auto) Seg Neutrophils % Seg Neuts % (Manual) Lymphocytes % (Manual) Seg Neutrophils # Seg Neutrophils # Man Lymphocytes # (Manual) ABG pH ABG pO2 ABG HCO3 ABG O2 Saturation ABG Base Excess ABG Hemoglobin Sodium 146 H Potassium Chloride 108.2 H Carbon Dioxide 21 L BUN 66 H Creatinine 9.8 H Glucose 125 H POC Glucose Calcium 7.8 L Phosphorus Magnesium Iron TIBC Total Creatine Kinase Troponin T 0.319 H* 0.313 H* NT-Pro-B Natriuret Pep Total Protein Albumin PTH Intact Urine WBC (Auto) Urine Creatinine 11/12/21 11/12/21 11/13/21 23:18 Unknown 04:00 WBC 17.2 H RBC 3.09 L Hgb 8.4 L Hct 27.5 L MCH 27 L MCHC 30 L RDW 19.6 H Lymph % (Auto) Greer % (Auto) Lymph # (Auto) Greer # (Auto) Seg Neutrophils % Seg Neuts % (Manual) Lymphocytes % (Manual) Seg Neutrophils # Seg Neutrophils # Man Lymphocytes # (Manual) ABG pH ABG pO2 ABG HCO3 ABG O2 Saturation ABG Base Excess ABG Hemoglobin Sodium Potassium Chloride Carbon Dioxide BUN Creatinine Glucose POC Glucose 120 H Calcium Phosphorus Magnesium Iron TIBC Total Creatine Kinase Troponin T NT-Pro-B Natriuret Pep 3674 H Total Protein Albumin PTH Intact Urine WBC (Auto) Urine Creatinine 11/13/21 11/13/21 11/13/21 04:00 04:00 05:23 WBC RBC Hgb Hct MCH MCHC RDW Lymph % (Auto) Greer % (Auto) Lymph # (Auto) Greer # (Auto) Seg Neutrophils % Seg Neuts % (Manual) Lymphocytes % (Manual) Seg Neutrophils # Seg Neutrophils # Man Lymphocytes # (Manual) ABG pH 7.274 L ABG pO2 93.2 H ABG HCO3 ABG O2 Saturation ABG Base Excess -3.9 L ABG Hemoglobin 8.2 L Sodium Potassium Chloride Carbon Dioxide 21 L BUN 71 H Creatinine 9.9 H Glucose 128 H POC Glucose 117 H Calcium 7.7 L Phosphorus 5.10 H Magnesium 1.60 L Iron TIBC Total Creatine Kinase Troponin T NT-Pro-B Natriuret Pep Total Protein Albumin PTH Intact Urine WBC (Auto) Urine Creatinine 11/13/21 11/13/21 11/14/21 16:20 23:31 04:10 WBC RBC Hgb Hct MCH MCHC RDW Lymph % (Auto) Greer % (Auto) Lymph # (Auto) Greer # (Auto) Seg Neutrophils % Seg Neuts % (Manual) Lymphocytes % (Manual) Seg Neutrophils # Seg Neutrophils # Man Lymphocytes # (Manual) ABG pH ABG pO2 107.1 H ABG HCO3 ABG O2 Saturation ABG Base Excess ABG Hemoglobin 6.5 L Sodium Potassium Chloride Carbon Dioxide BUN Creatinine Glucose POC Glucose 125 H 123 H Calcium Phosphorus Magnesium Iron TIBC Total Creatine Kinase Troponin T NT-Pro-B Natriuret Pep Total Protein Albumin PTH Intact Urine WBC (Auto) Urine Creatinine 11/14/21 11/14/21 11/14/21 06:30 06:30 15:00 WBC 11.2 H RBC 3.03 L Hgb 8.1 L Hct 26.6 L MCH 27 L MCHC 30 L RDW 19.3 H Lymph % (Auto) Greer % (Auto) Lymph # (Auto) Greer # (Auto) Seg Neutrophils % Seg Neuts % (Manual) Lymphocytes % (Manual) Seg Neutrophils # Seg Neutrophils # Man Lymphocytes # (Manual) ABG pH ABG pO2 ABG HCO3 ABG O2 Saturation ABG Base Excess ABG Hemoglobin Sodium Potassium 3.0 L D 3.4 L Chloride Carbon Dioxide BUN 41 H Creatinine 7.0 H Glucose 107 H POC Glucose Calcium 7.5 L Phosphorus Magnesium 1.60 L Iron TIBC Total Creatine Kinase Troponin T NT-Pro-B Natriuret Pep Total Protein Albumin PTH Intact Urine WBC (Auto) Urine Creatinine 11/14/21 11/15/21 11/15/21 17:24 04:00 04:00 WBC 11.3 H RBC 3.00 L Hgb 8.1 L Hct 26.3 L MCH 27 L MCHC 31 L RDW 19.2 H Lymph % (Auto) Greer % (Auto) Lymph # (Auto) [place] # (Auto) Seg Neutrophils % Seg Neuts % (Manual) Lymphocytes % (Manual) Seg Neutrophils # Seg Neutrophils # Man Lymphocytes # (Manual) ABG pH ABG pO2 ABG HCO3 ABG O2 Saturation ABG Base Excess ABG Hemoglobin Sodium Potassium 3.4 L Chloride Carbon Dioxide BUN 32 H Creatinine 5.9 H Glucose 117 H POC Glucose 124 H Calcium 8.3 L Phosphorus Magnesium Iron TIBC Total Creatine Kinase Troponin T NT-Pro-B Natriuret Pep Total Protein Albumin PTH Intact Urine WBC (Auto) Urine Creatinine 11/15/21 11/15/21 11/16/21 13:58 16:20 04:00 WBC 13.2 H RBC 2.88 L Hgb 7.8 L Hct 25.2 L MCH 27 L MCHC 31 L RDW 19.1 H Lymph % (Auto) Greer % (Auto) Lymph # (Auto) Greer # (Auto) Seg Neutrophils % Seg Neuts % (Manual) Lymphocytes % (Manual) Seg Neutrophils # Seg Neutrophils # Man Lymphocytes # (Manual) ABG pH 7.335 L ABG pO2 254.0 H ABG HCO3 26.2 H ABG O2 Saturation 99.4 H ABG Base Excess ABG Hemoglobin 8.5 L Sodium Potassium Chloride Carbon Dioxide BUN Creatinine Glucose POC Glucose 132 H Calcium Phosphorus Magnesium Iron TIBC Total Creatine Kinase Troponin T NT-Pro-B Natriuret Pep Total Protein Albumin PTH Intact Urine WBC (Auto) Urine Creatinine 11/16/21 11/16/21 11/16/21 04:00 04:05 11:06 WBC RBC Hgb Hct MCH MCHC RDW Lymph % (Auto) Greer % (Auto) Lymph # (Auto) Greer # (Auto) Seg Neutrophils % Seg Neuts % (Manual) Lymphocytes % (Manual) Seg Neutrophils # Seg Neutrophils # Man Lymphocytes # (Manual) ABG pH ABG pO2 115.6 H ABG HCO3 ABG O2 Saturation ABG Base Excess ABG Hemoglobin 8.1 L Sodium Potassium Chloride Carbon Dioxide BUN 44 H Creatinine 7.7 H Glucose 104 H POC Glucose 106 H Calcium 7.9 L Phosphorus Magnesium Iron TIBC Total Creatine Kinase Troponin T NT-Pro-B Natriuret Pep Total Protein Albumin PTH Intact Urine WBC (Auto) Urine Creatinine 11/16/21 11/16/21 11/17/21 18:05 23:51 04:15 WBC 11.8 H RBC 3.02 L Hgb 8.1 L Hct 26.9 L MCH 27 L MCHC 30 L RDW 18.9 H Lymph % (Auto) Greer % (Auto) Lymph # (Auto) Greer # (Auto) Seg Neutrophils % Seg Neuts % (Manual) Lymphocytes % (Manual) Seg Neutrophils # Seg Neutrophils # Man Lymphocytes # (Manual) ABG pH ABG pO2 ABG HCO3 ABG O2 Saturation ABG Base Excess ABG Hemoglobin Sodium Potassium Chloride Carbon Dioxide BUN Creatinine Glucose POC Glucose 109 H 118 H Calcium Phosphorus Magnesium Iron TIBC Total Creatine Kinase Troponin T NT-Pro-B Natriuret Pep Total Protein Albumin PTH Intact Urine WBC (Auto) Urine Creatinine 11/17/21 11/17/21 11/17/21 04:15 04:25 11:25 WBC RBC Hgb Hct MCH MCHC RDW Lymph % (Auto) Greer % (Auto) Lymph # (Auto) Greer # (Auto) Seg Neutrophils % Seg Neuts % (Manual) Lymphocytes % (Manual) Seg Neutrophils # Seg Neutrophils # Man Lymphocytes # (Manual) ABG pH ABG pO2 153.8 H ABG HCO3 ABG O2 Saturation ABG Base Excess ABG Hemoglobin 8.3 L Sodium Potassium Chloride Carbon Dioxide BUN 33 H Creatinine 6.2 H Glucose 118 H POC Glucose 108 H Calcium Phosphorus Magnesium Iron TIBC Total Creatine Kinase Troponin T NT-Pro-B Natriuret Pep Total Protein Albumin PTH Intact Urine WBC (Auto) Urine Creatinine 11/18/21 11/18/21 11/18/21 04:00 04:00 04:35 WBC RBC 2.88 L Hgb 7.8 L Hct 25.3 L MCH 27 L MCHC 31 L RDW 18.7 H Lymph % (Auto) Greer % (Auto) Lymph # (Auto) Greer # (Auto) Seg Neutrophils % Seg Neuts % (Manual) Lymphocytes % (Manual) Seg Neutrophils # Seg Neutrophils # Man Lymphocytes # (Manual) ABG pH 7.467 H ABG pO2 110.0 H ABG HCO3 26.2 H ABG O2 Saturation ABG Base Excess ABG Hemoglobin 8.1 L Sodium Potassium Chloride Carbon Dioxide BUN 28 H Creatinine 5.5 H Glucose POC Glucose Calcium Phosphorus Magnesium Iron TIBC Total Creatine Kinase Troponin T NT-Pro-B Natriuret Pep Total Protein Albumin PTH Intact Urine WBC (Auto) Urine Creatinine 11/18/21 11/19/21 11/19/21 11:50 04:00 11:30 WBC RBC Hgb Hct MCH MCHC RDW Lymph % (Auto) Greer % (Auto) Lymph # (Auto) Greer # (Auto) Seg Neutrophils % Seg Neuts % (Manual) Lymphocytes % (Manual) Seg Neutrophils # Seg Neutrophils # Man Lymphocytes # (Manual) ABG pH ABG pO2 ABG HCO3 ABG O2 Saturation ABG Base Excess ABG Hemoglobin Sodium Potassium Chloride Carbon Dioxide BUN 26 H Creatinine 4.7 H Glucose 110 H POC Glucose 131 H 106 H Calcium Phosphorus Magnesium Iron TIBC Total Creatine Kinase Troponin T NT-Pro-B Natriuret Pep Total Protein Albumin PTH Intact Urine WBC (Auto) Urine Creatinine 11/19/21 11/20/21 11/20/21 17:09 00:14 04:00 WBC RBC Hgb Hct MCH MCHC RDW Lymph % (Auto) Greer % (Auto) Lymph # (Auto) Greer # (Auto) Seg Neutrophils % Seg Neuts % (Manual) Lymphocytes % (Manual) Seg Neutrophils # Seg Neutrophils # Man Lymphocytes # (Manual) ABG pH ABG pO2 ABG HCO3 ABG O2 Saturation ABG Base Excess ABG Hemoglobin Sodium 134 L Potassium Chloride 94.4 L Carbon Dioxide BUN 25 H Creatinine 4.6 H Glucose 117 H POC Glucose 129 H 115 H Calcium Phosphorus Magnesium Iron TIBC Total Creatine Kinase Troponin T NT-Pro-B Natriuret Pep Total Protein Albumin PTH Intact Urine WBC (Auto) Urine Creatinine 11/20/21 11/21/21 11/21/21 11:36 04:00 04:00 WBC 12.0 H RBC 2.85 L Hgb 7.8 L Hct 24.8 L MCH MCHC RDW 18.5 H Lymph % (Auto) Greer % (Auto) Lymph # (Auto) Greer # (Auto) Seg Neutrophils % Seg Neuts % (Manual) Lymphocytes % (Manual) Seg Neutrophils # Seg Neutrophils # Man Lymphocytes # (Manual) ABG pH ABG pO2 ABG HCO3 ABG O2 Saturation ABG Base Excess ABG Hemoglobin Sodium 133 L Potassium Chloride 95.3 L Carbon Dioxide BUN 40 H Creatinine 6.2 H Glucose 103 H POC Glucose 117 H Calcium Phosphorus Magnesium Iron TIBC Total Creatine Kinase Troponin T NT-Pro-B Natriuret Pep Total Protein Albumin PTH Intact Urine WBC (Auto) Urine Creatinine 11/21/21 11/21/21 11/22/21 11:38 18:13 00:41 WBC RBC Hgb Hct MCH MCHC RDW Lymph % (Auto) Greer % (Auto) Lymph # (Auto) Greer # (Auto) Seg Neutrophils % Seg Neuts % (Manual) Lymphocytes % (Manual) Seg Neutrophils # Seg Neutrophils # Man Lymphocytes # (Manual) ABG pH ABG pO2 ABG HCO3 ABG O2 Saturation ABG Base Excess ABG Hemoglobin Sodium Potassium Chloride Carbon Dioxide BUN Creatinine Glucose POC Glucose 127 H 112 H 106 H Calcium Phosphorus Magnesium Iron TIBC Total Creatine Kinase Troponin T NT-Pro-B Natriuret Pep Total Protein Albumin PTH Intact Urine WBC (Auto) Urine Creatinine 11/22/21 11/22/21 11/22/21 04:00 04:00 08:30 WBC 16.1 H 14.8 H RBC 3.01 L 2.95 L Hgb 8.1 L 7.8 L Hct 26.6 L 26.3 L MCH 27 L 27 L MCHC 31 L 30 L RDW 18.3 H 18.9 H Lymph % (Auto) 5.7 L Greer % (Auto) 13.0 H Lymph # (Auto) 0.8 L Greer # (Auto) 1.9 H Seg Neutrophils % 79.5 H Seg Neuts % (Manual) Lymphocytes % (Manual) Seg Neutrophils # 11.8 H Seg Neutrophils # Man Lymphocytes # (Manual) ABG pH ABG pO2 ABG HCO3 ABG O2 Saturation ABG Base Excess ABG Hemoglobin Sodium 136 L Potassium Chloride 97.6 L Carbon Dioxide BUN 35 H Creatinine 5.8 H Glucose 120 H POC Glucose Calcium Phosphorus 4.80 H D Magnesium 3.80 H Iron TIBC Total Creatine Kinase Troponin T NT-Pro-B Natriuret Pep Total Protein Albumin PTH Intact Urine WBC (Auto) Urine Creatinine 11/22/21 08:30 WBC RBC Hgb Hct MCH MCHC RDW Lymph % (Auto) Greer % (Auto) Lymph # (Auto) [place]er # (Auto) Seg Neutrophils % Seg Neuts % (Manual) Lymphocytes % (Manual) Seg Neutrophils # Seg Neutrophils # Man Lymphocytes # (Manual) ABG pH ABG pO2 ABG HCO3 ABG O2 Saturation ABG Base Excess ABG Hemoglobin Sodium Potassium 5.3 H Chloride Carbon Dioxide BUN 36 H Creatinine 6.1 H Glucose 117 H POC Glucose Calcium Phosphorus Magnesium Iron TIBC Total Creatine Kinase 534 H Troponin T 0.294 H* NT-Pro-B Natriuret Pep Total Protein Albumin PTH Intact Urine WBC (Auto) Urine Creatinine Allied health notes reviewed: nursing
[2021-11-22] MEDS ORDERED: KETAMINE/STERILE WATER 50 MG/ML SYRINGE ONE (10:36)
--- NOTE | 2021-11-22 10:41 | Event Note ---
Date: 11/22/21 Received report from RT that oETT was noted to be at 20cm @ the teeth (previously 26cm yesterday) and unable to advance the tube or in-line suction catheter. SpO2 remained 100% but concern for ETT malposition. Once in OR on vent, patient was noted to have significant leak, again suspicious for malpositioned tube. I advanced glidescope FOB through swivel connector into ETT and visualized the vocal cord just beyond the tip of the tube. I advanced the scope through the cords and into the trachea without difficulty. I saw what appeared to be a tear in the proximal tracheal mucosa without evidence of active bleeding. The ETT was advanced over the scope into the tracheal lumen easily and re-secured. Afterward, air leak resolved. SpO2 remained 100% throughout. Surgeon made aware of tracheal mucosal findings.
[2021-11-22] MEDS ORDERED: LIDOCAINE 1%/EPINEPHRINE 1:100,000 VIAL (20 ML) INFILTRATI ONE (10:47)
--- NOTE | 2021-11-22 10:49 | Anesthesia Day of Surgery ---
Anesthesia Day of Surgery - Day of Surgery Patient Examined: Yes Patient H&P Reviewed: Yes Patient is NPO: Yes
--- NOTE | 2021-11-22 11:43 | Progress Note ---
Assessment and Plan Acute respiratory failure Pneumonia Hypoxia KD (acute kidney injury) on top of CKD Hyperkalemia Diabetes Elevated troponin Hypertension Obesity Acidosis Plan -HD again today for UF and clearance, albumin added for low BP and heparin to prevent clotting -Assess need for HD on daily basis -On Nepro tube feeding -Renal ultrasound- Left kidney no visualized. No hydronephrosis to right kidney -Renally dose all medications -Monitor I/O's daily Subjective Date of service: 11/22/21 Principal diagnosis: Acute respiratory failure, Interval history: the patient was in the OR for trachestomy and PEG tube placement Objective - Vital Signs Vital signs: Vital Signs - 12hr 11/21/21 11/21/21 11/22/21 23:45 23:50 00:00 Temperature Pulse Rate 106 H 98 H 97 H Pulse Rate [ From Monitor] Respiratory 24 19 Rate Blood Pressure 110/56 110/56 100/55 O2 Sat by Pulse 93 96 93 Oximetry 11/22/21 11/22/21 11/22/21 00:15 00:30 00:40 Temperature Pulse Rate 96 H 96 H 96 H Pulse Rate [ From Monitor] Respiratory 17 20 Rate Blood Pressure 95/50 104/58 O2 Sat by Pulse 93 94 Oximetry 11/22/21 11/22/21 11/22/21 00:45 00:55 01:00 Temperature Pulse Rate 97 H 97 H Pulse Rate [ From Monitor] Respiratory 17 22 19 Rate Blood Pressure 103/63 94/40 O2 Sat by Pulse 95 94 93 Oximetry 11/22/21 11/22/21 11/22/21 01:05 01:15 01:30 Temperature 98.2 F Pulse Rate 90 95 H Pulse Rate [ From Monitor] Respiratory 16 15 Rate Blood Pressure 84/51 89/50 O2 Sat by Pulse 96 95 Oximetry 11/22/21 11/22/21 11/22/21 01:45 02:00 02:15 Temperature Pulse Rate 95 H 91 H 88 Pulse Rate [ From Monitor] Respiratory 20 16 17 Rate Blood Pressure 89/60 86/50 107/65 O2 Sat by Pulse 95 94 Oximetry 11/22/21 11/22/21 11/22/21 02:30 02:45 03:00 Temperature Pulse Rate 101 H 100 H 111 H Pulse Rate [ From Monitor] Respiratory 39 H 21 Rate Blood Pressure 107/65 108/64 152/78 O2 Sat by Pulse 100 100 Oximetry 11/22/21 11/22/21 11/22/21 03:15 03:30 03:45 Temperature Pulse Rate 109 H 108 H 100 H Pulse Rate [ From Monitor] Respiratory 40 H 20 18 Rate Blood Pressure 128/83 123/82 130/74 O2 Sat by Pulse 100 100 100 Oximetry 11/22/21 11/22/21 11/22/21 04:00 04:15 04:30 Temperature 98.3 F Pulse Rate 100 H 97 H 98 H Pulse Rate [ From Monitor] Respiratory 20 23 13 Rate Blood Pressure 135/76 135/68 116/59 O2 Sat by Pulse 100 100 93 Oximetry 11/22/21 11/22/21 11/22/21 04:41 04:45 05:00 Temperature Pulse Rate 96 H 99 H 96 H Pulse Rate [ From Monitor] Respiratory 21 23 Rate Blood Pressure 122/74 122/75 116/78 O2 Sat by Pulse 99 100 100 Oximetry 11/22/21 11/22/21 11/22/21 05:15 05:20 05:30 Temperature Pulse Rate 95 H 95 H 95 H Pulse Rate [ From Monitor] Respiratory 23 22 14 Rate Blood Pressure 122/74 116/72 O2 Sat by Pulse 100 94 100 Oximetry 11/22/21 11/22/21 11/22/21 05:45 06:00 06:15 Temperature Pulse Rate 89 94 H 91 H Pulse Rate [ From Monitor] Respiratory 14 21 21 Rate Blood Pressure 120/68 133/76 116/69 O2 Sat by Pulse 99 99 99 Oximetry 11/22/21 11/22/21 11/22/21 06:30 06:45 07:00 Temperature Pulse Rate 90 91 H 96 H Pulse Rate [ From Monitor] Respiratory 18 15 19 Rate Blood Pressure 132/75 109/65 109/65 O2 Sat by Pulse 100 100 100 Oximetry 11/22/21 11/22/21 11/22/21 07:15 07:30 07:46 Temperature Pulse Rate 91 H 89 85 Pulse Rate [ From Monitor] Respiratory 23 10 L 12 Rate Blood Pressure 128/74 118/71 118/74 O2 Sat by Pulse 100 100 100 Oximetry 11/22/21 11/22/21 11/22/21 08:00 08:16 08:30 Temperature 98.3 F Pulse Rate 84 82 80 Pulse Rate [ 104 H From Monitor] Respiratory 15 20 20 Rate Blood Pressure 105/57 105/57 104/59 O2 Sat by Pulse 100 100 96 Oximetry 11/22/21 11/22/21 11/22/21 08:43 08:46 09:00 Temperature Pulse Rate 79 81 83 Pulse Rate [ From Monitor] Respiratory 17 22 Rate Blood Pressure 104/54 104/59 100/67 O2 Sat by Pulse 100 100 98 Oximetry - Lab 11/22/21 08:30 11/22/21 08:30 Most recent lab results ABG pH 7.467 pH Units (7.350-7.450) H 11/18/21 04:35 ABG pCO2 37.1 mm Hg 11/18/21 04:35 ABG pO2 110.0 mm Hg (80.0-90.0) H 11/18/21 04:35 ABG HCO3 26.2 mmol/L (20.0-26.0) H 11/18/21 04:35 ABG O2 Saturation 98.1 % (95.0-99.0) 11/18/21 04:35 Calcium 8.6 mg/dL (8.4-10.2) 11/22/21 08:30 Phosphorus 4.80 mg/dL (2.5-4.5) H D 11/22/21 04:00 Magnesium 3.80 mg/dL (1.7-2.3) H 11/22/21 04:00 Urine Creatinine 189.3 mg/dL (0.1-20.0) H 11/12/21 02:20 Urine Sodium 30 mmol/L 11/12/21 02:20 Medications & Allergies - Medications Allergies/Adverse Reactions: Allergies No Known Allergies Allergy (Verified 11/11/21 20:58) Home Medications: Home Medications Medication Instructions Recorded Confirmed Last Taken Type No Known Home Medications [No 11/22/21 11/22/21 Unknown History Reported Home Medications] Active Medications: Generic Name Dose Route Start Last Admin Trade Name Freq PRN Reason Stop Dose Admin Acetaminophen 650 mg 11/11/21 22:40 Acetaminophen 325 Mg Tab PO Q4H PRN Pain MILD(1-3)/Fever >100.5/SOTO Albuterol 2.5 mg 11/11/21 22:40 Albuterol 2.5 Mg/3 Ml Nebu IH Q3HRT PRN Shortness Of Breath Aspirin 325 mg 11/17/21 10:00 11/21/21 10:20 Aspirin 325 Mg Tab FEEDTUBE 325 mg QDAY BAO Administration Atorvastatin Calcium 40 mg 11/17/21 22:00 11/21/21 21:01 Atorvastatin 40 Mg Tab FEEDTUBE 40 mg QHS BAO Administration Dextrose 50 ml 11/18/21 13:00 Dextrose 50% In Water (25gm) 50 Ml Syringe IV Q30MIN PRN Hypoglycemia Protocol Docusate Sodium 100 mg 11/17/21 10:00 11/21/21 21:01 Docusate Sodium 100 Mg/10 Ml Oral Liqd FEEDTUBE 100 mg BID BAO Administration Famotidine 20 mg 11/17/21 10:00 11/21/21 10:20 Famotidine 20 Mg Tab FEEDTUBE 20 mg QDAY BAO Administration Fentanyl 50 mcg 11/11/21 20:56 11/22/21 03:45 Fentanyl 100 Mcg/2 Ml Inj IV 50 mcg Q10MIN PRN Administration ANALGESIA Hydrophilic Ointment 1 applic 11/11/21 20:56 Lip Therapy Vaseline TP Q2HR PRN Dry Lips Fentanyl Citrate 2,000 mcg in 100 mls @ 13.608 mls/hr 11/11/21 21:00 11/22/21 08:00 Fentanyl Drip Premix IV 2 mcg/kg/hr TITR BAO 27.216 mls/hr Administration Protocol 1 MCG/KG/HR NORepinephrine/NS 8 MG-250 ML 8 mg in 250 mls @ 3.75 mls/hr 11/11/21 23:00 11/21/21 19:20 Norepinephrine/Ns 8 Mg-250 Ml (Double Conc) IV 2 mcg/min TITRATE BAO 3.75 mls/hr Titration Protocol 2 MCG/MIN Propofol 1,000 mg in 100 mls @ 8.166 mls/hr 11/13/21 09:00 11/22/21 09:10 Diprivan 10 Mg/Ml IV 10 mcg/kg/min TITR BAO 16.332 mls/hr Administration Protocol 5 MCG/KG/MIN Sodium Chloride 100 mls @ 999 mls/hr 11/21/21 08:11 Nacl 0.9% IV LONG PRN Hypotension Insulin Human Lispro 0 unit 11/12/21 00:00 11/22/21 00:55 Insulin Lispro 100 Unit/Ml SUB-Q Not Given Q6HR [facility] Protocol Lorazepam 2 mg 11/21/21 11:00 Lorazepam 2 Mg/Ml Vial IV Q4H PRN Agitation Multi-Ingred Cream/Lotion/Oil/Oint 1 applic 11/11/21 20:56 Mineral Oil/Petrolatum, White Ophth Oint 3.5 Gm OU Q4HR PRN Dry Eye(s) Ondansetron HCl 4 mg 11/11/21 22:40 Ondansetron 4 Mg/2 Ml Inj IV Q8H PRN Nausea And Vomiting Polyethylene Glycol 17 gm 11/22/21 10:00 Polyethylene Glycol 3350 17 Gm Powder PO QDAY BAO Senna 8.6 mg 11/17/21 10:00 11/21/21 22:00 Sennosides 8.6 Mg Tab FEEDTUBE 8.6 mg Q12H BAO Administration Sodium Chloride 10 ml 11/12/21 10:00 11/22/21 09:11 Sodium Chloride 0.9% 10 Ml Flush Syringe IV 10 ml BID BAO Administration Sodium Chloride 10 ml 11/11/21 22:40 Sodium Chloride 0.9% 10 Ml Flush Syringe IV PRN PRN LINE FLUSH
--- NOTE | 2021-11-22 12:16 | Operative Report ---
Operative Report Operative Report: Date of surgery: 11/22/2021 Preoperative diagnosis: Vent dependent respiratory failure, dysphagia Postoperative diagnosis: Same as above Procedure: PEG Tube placement Surgeon: Gali galaviz DO Co-surgeon: Farrah Box MD Anesthesia: Geta, local Findings: Good placement of PEG with outer bumper at 5 cm at the skin EBL: Less than 5 cc Specimen: None Complications: None Disposition: Stable to ICU HPI and indication: Patient is a 56-year-old male with severe morbid obesity who presented to the hospital with respiratory distress. The patient has not been able to wean from the ventilator and therefore tracheostomy and PEG tube was requested by the retail account executive. Consent was obtained from the patient's family. Procedure in detail: A mouthguard was placed through which a flexible endoscope was passed through the mouth and into the esophagus. The NG tube was visualized along the way. The endoscope was advanced through the esophagus and into the stomach. The stomach was unremarkable. The stomach was insufflated and transillumination performed. An satisfactory area of transillumination was visualized in the epigastrium with at least 3 cm distance from the costal margin. This was marked. The skin was then prepped and draped in usual sterile fashion. Local anesthetic was infiltrated to the skin at the intended incision site. A small incision was made in the skin using an 11 blade. An introducer needle/breakaway sheath was inserted directly through this incision into the stomach under direct endoscopic visualization. The needle was removed. The wire was passed and grasped with a snare and the wire pulled along with the endoscope through the mouth. The PEG tube was assembled onto the wire and pulled back through the mouth and down into the stomach. The outer bumper was at 5 cm at the skin. The PEG tube was cut to size and assembled in the usual fashion. A drain sponge was applied between the skin and the PEG tube and the tube secured with tape. I then reinserted the endoscope into the mouth and down into the stomach. The PEG tube inner bumper was seen to lay flush against the gastric mucosa without tension. There is no bleeding. The NG tube was withdrawn. The stomach was then desufflated and the endoscope withdrawn. Patient tolerated the procedure well.
--- NOTE | 2021-11-22 12:19 | Operative Report ---
Operative Report Operative Report: Date of Operation: 11/22/2021 Preoperative diagnosis: Ventilator -dependent respiratory failure Operative diagnosis: Same as above Procedure performed: Fiber optic bronchoscopy Surgeon: Gali Romeo DO Anesthesia: GETA Findings: Edematous vocal cords. Unremarkable trachea. Complications: None Addition: Stable HPI and indication: Patient is a 56-year-old male with a history of severe morbid obesity presented to the hospital with acute respiratory distress. He has been intubated and unable to be weaned from the ventilator. Tracheostomy and PEG tube are requested by the uppers edge burnisher. Consent obtained from family. Procedure in detail: The patient was identified in ICU bed and brought down to the operating room. After anesthesia was induced, the fiberoptic bronchoscope was passed through the endotracheal tube via adapter. The trachea and barbra were visualized, there was a normal. Of the mucosa and no debris or fluid was seen. The vocal cords were edematous. At this point, Dr. Box performed the tracheostomy portion of the procedure (please see separate operative note) a 7 Spanish distal XLT cuffed tracheostomy tube was placed under direct visualization by fiberoptic bronchoscopy. Please see separate operative note for more details on Tracheostomy placement. Once the tracheostomy tube was placed, the bronchoscope was withdrawn from the endotracheal tube and placed through the tracheostomy tube. The tracheostomy tube appeared to be in good position approximately 5 cm from the barbra. The tidal volumes were satisfactory and there was end-tidal CO2. The bronchoscope was then withdrawn. Patient tolerated the procedure well.
--- NOTE | 2021-11-22 12:20 | Operative Report ---
Operative Report Operative Report: Date of surgery: 11/23/2019 Preoperative diagnosis: Vent dependence Postoperative diagnosis: Same as above Procedure: Percutaneous tracheostomy Surgeon: Dr. Box Organ Builder: Dr. Romeo Anesthesia: Geta, local Findings: Good placement of tracheostomy as visualized by fiberoptic bronchoscopy EBL: LESS than 5 cc Specimen: None Complications: None Disposition: Stable to ICU HPI and indication: Patient is a Procedure in detail: The patient was identified in the ICU and brought down to the operating room and positioned in supine position in the hospital bed. Consent was verified on the chart timeout was performed. The neck was prepped and draped in usual sterile fashion. Anesthesia was administered. A shoulder roll was placed, with the patient's neck mildly hyperextended. Dr. Romeo performed fiberoptic bronchoscopy throughout the entire procedure. The fiberoptic bronchoscope was inserted through the endotracheal tube via the adapter and the trachea examined. The trachea was unremarkable, and the 7.0 ET tube was approximately 3 cm from barbra at 24 cm at the lip. 1% lidocaine was infiltrated into the skin and subcutaneous tissue approximately 2 fingerbreadths above the barbra. A 2 cm incision was made in a horizontal fashion using a 15 blade. Using a hemostat the soft tissues were bluntly dissected until the trachea was encountered. The ET tube was then pulled back slowly to 16 cm. Using the introducer needle, the trachea was entered under direct visualization. The wire was passed down the trachea towards the barbra. Introducer needle was then removed. The trachea was then serially dilated, after which a 8 Thai Shiley tracheostomy tube was inserted. The balloon was visualized via fiberoptic bronchoscopy. The balloon was inflated, patient placed back on ventilator. There was end-tidal CO2 detected and tidal volumes assessed which were satisfactory. The bronchoscope was then placed through the tracheostomy and showed good positioning of the tracheostomy approximately 4 to 5 cm above the barbra and no bleeding. A drain sponge was placed between the skin and tracheostomy. The tracheostomy was secured to the patient's neck using a tracheostomy strap. A post op chest x-ray is pending. The patient tolerated the procedure well. All sharps were disposed of ap propriately. The patient was taken back to the ICU in stable condition.
--- NOTE | 2021-11-22 13:15 | Post Anesthesia Evaluation ---
- Post Anesthesia Evaluation Patient Participated: No Airway Patent: Yes Stable Respiratory Function: Yes Nausea/Vomiting: No (unable to assess) Temp > 96.8F: Yes Pain Manageable: Yes (unable to asses) Adequeate Hydration: Yes Anesthesia Complications: No Patient on Ventilator: Yes
--- NOTE | 2021-11-22 13:19 | XRay Report ---
CHEST 1 VIEW 11/22/2021 12:31 PM INDICATION / CLINICAL INFORMATION: Follow-up after tracheostomy placement. COMPARISON: One view of the chest from earlier today. FINDINGS: SUPPORT DEVICES: A tracheostomy tube is in expected position. The esophagogastric tube has been remov ed. Unchanged right internal jugular vein Vas-Cath. HEART / MEDIASTINUM: Stable. LUNGS / PLEURA: Decreased volume of the right lung is noted with increased right pleural parenchymal opacities. The left lung is clear. No pneumothorax. ADDITIONAL FINDINGS: No significant additional findings. IMPRESSION: Expected positioning of the tracheostomy tube with decreased right lung volume and increased right pl eural parenchymal opacities. Signer Name: Edil Riley MD Signed: 11/22/2021 1:15 PM Workstation Name: [id number]
--- NOTE | 2021-11-22 13:23 | XRay Report ---
RIGHT WRIST 2 VIEWS INDICATION / CLINICAL INFORMATION: Evaluate for possible right wrist fracture COMPARISON: None available. FINDINGS: BONES and JOINT(S): The bones are demineralized. 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 The distal ulna is dislocated dorsally/laterally. No acute displaced fracture is identified. Severe degenerative changes are noted along the radiocarpal joint. SOFT TISSUES: Mild/moderate generalized edema is seen without other significant abnormalities. ADDITIONAL FINDINGS: None. IMPRESSION: 1. 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 Please correlate with the pat ient's history. 2. Dislocation of the distal ulna may also be chronic. Please correlate with the clinical findings. Signer Name: Edil Riley MD Signed: 11/22/2021 1:19 PM Workstation Name: [id number]
[2021-11-22] MEDS ORDERED: HEPARIN 10,000 UNITS/10 ML VIAL IV PRN (14:00)
[2021-11-22] MEDS ORDERED: ALBUMIN HUMAN 25% (25 GM/100 ML) INJ IV PRN (14:00)
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
[2021-11-22] MEDS: ASPIRIN 325 MG TAB FEEDTUBE SCH (14:08)
[2021-11-22] MEDS: POLYETHYLENE GLYCOL 3350 17 GM POWDER PO SCH (14:09)
[2021-11-22] MEDS: FAMOTIDINE 20 MG TAB FEEDTUBE SCH (14:09)
[2021-11-22] MEDS: DOCUSATE SODIUM 100 MG/10 ML ORAL LIQD FEEDTUBE SCH ×2 (14:09→21:14)
[2021-11-22] MEDS: SENNOSIDES 8.6 MG TAB FEEDTUBE SCH ×2 (14:09→21:14)
[2021-11-22] MEDS: NORepinephrine/NS 8 MG-250 ML 8 MG/250 ML INFUS..BTL IV SCH (22:41)
[2021-11-23] MEDS: INSULIN LISPRO 100 UNIT/ML SUB-Q SCH ×4 (00:27→17:26)
[2021-11-23] MEDS: fentaNYL DRIP Premix 2,000 MCG/100 ML BAG IV SCH ×3 (02:40→20:43)
[2021-11-23 04:46] LABS: Hematocrit 25.7 % (35.5-45.6); Hemoglobin 7.8 gm/dl (11.8-15.2); Mean Corpuscular HGB Conc 30 % (32-34); Mean Corpuscular Volume 88 fl (84-94); Platelet Count 262 K/mm3 (140-440); Red Blood Count 2.93 M/mm3 (3.65-5.03); Red Cell Distribution Width 18.5 % (13.2-15.2)
[2021-11-23 05:07] LABS: Calcium 8.6 mg/dL (8.4-10.2)
[2021-11-23] MEDS: NORepinephrine/NS 8 MG-250 ML 8 MG/250 ML INFUS..BTL IV SCH (08:17)
--- NOTE | 2021-11-23 08:48 | Progress Note ---
Assessment and Plan Assessment Acute respiratory failure Pneumonia Hypoxia KD (acute kidney injury) on top of CKD Hyperkalemia Diabetes Elevated troponin Hypertension Obesity Acidosis Plan -Renal labs reviewed. Serum creatinine 5.1 today, yesterday's was 6.1 -Hemodialysis today for UF and clearance, HD to be done daily for now -Ordered IV Albumin prn for Hypotension during HD -Renal ultrasound- Left kidney no visualized. No hydronephrosis to right kidney -Renally dose all medications -Obtain daily weights -Monitor I/O's daily -Assess dialysis needs daily -Plan of care reviewed by Dr. Ya Subjective Date of service: 11/23/21 Principal diagnosis: Acute respiratory failure, Interval history: Awake. Has PEG tube and Trach. No family at bedside. Objective - Vital Signs Vital signs: Vital Signs - 12hr 11/22/21 11/22/21 11/22/21 21:00 21:15 21:30 Temperature Pulse Rate 100 H 90 92 H Pulse Rate [ From Monitor] Respiratory 23 17 19 Rate Blood Pressure 103/60 112/66 122/64 O2 Sat by Pulse 100 100 100 Oximetry 11/22/21 11/22/21 11/22/21 21:45 22:00 22:15 Temperature Pulse Rate 92 H 93 H 92 H Pulse Rate [ From Monitor] Respiratory 22 19 25 H Rate Blood Pressure 97/55 115/68 108/59 O2 Sat by Pulse 100 100 100 Oximetry 11/22/21 11/22/21 11/22/21 22:30 22:45 23:00 Temperature Pulse Rate 93 H 94 H 91 H Pulse Rate [ From Monitor] Respiratory 27 H 18 20 Rate Blood Pressure 119/69 115/66 103/56 O2 Sat by Pulse 100 100 100 Oximetry 11/22/21 11/22/21 11/22/21 23:15 23:16 23:30 Temperature Pulse Rate 91 H 91 H 93 H Pulse Rate [ From Monitor] Respiratory 20 20 20 Rate Blood Pressure 121/64 121/64 98/51 O2 Sat by Pulse 100 100 100 Oximetry 11/22/21 11/22/21 11/22/21 23:45 23:47 23:57 Temperature 99.2 F Pulse Rate 96 H 95 H Pulse Rate [ From Monitor] Respiratory 20 Rate Blood Pressure 97/51 97/51 O2 Sat by Pulse 100 100 Oximetry 11/23/21 11/23/21 11/23/21 00:00 00:16 00:30 Temperature Pulse Rate 98 H 96 H 98 H Pulse Rate [ 90 From Monitor] Respiratory 20 20 20 Rate Blood Pressure 79/40 109/54 114/59 O2 Sat by Pulse 100 100 100 Oximetry 11/23/21 11/23/21 11/23/21 00:45 01:00 01:15 Temperature Pulse Rate 97 H 99 H 101 H Pulse Rate [ From Monitor] Respiratory 20 20 31 H Rate Blood Pressure 103/54 120/65 121/68 O2 Sat by Pulse 100 100 100 Oximetry 11/23/21 11/23/21 11/23/21 01:30 01:45 02:00 Temperature Pulse Rate 100 H 102 H 101 H Pulse Rate [ From Monitor] Respiratory 41 H 32 H 29 H Rate Blood Pressure 103/56 99/57 107/56 O2 Sat by Pulse 100 100 100 Oximetry 11/23/21 11/23/21 11/23/21 02:15 02:30 02:45 Temperature Pulse Rate 102 H 102 H 109 H Pulse Rate [ From Monitor] Respiratory 35 H 38 H 29 H Rate Blood Pressure 115/63 115/70 113/62 O2 Sat by Pulse 100 100 100 Oximetry 11/23/21 11/23/21 11/23/21 03:00 03:15 03:30 Temperature Pulse Rate 119 H 102 H 107 H Pulse Rate [ From Monitor] Respiratory 13 20 20 Rate Blood Pressure 124/58 88/36 100/48 O2 Sat by Pulse 98 99 100 Oximetry 11/23/21 11/23/21 11/23/21 03:45 04:00 04:06 Temperature 98.6 F Pulse Rate 108 H 105 H 107 H Pulse Rate [ 90 From Monitor] Respiratory 20 15 Rate Blood Pressure 125/58 96/50 96/50 O2 Sat by Pulse 100 99 100 Oximetry 11/23/21 11/23/21 11/23/21 04:15 04:30 04:46 Temperature Pulse Rate 107 H 108 H 106 H Pulse Rate [ From Monitor] Respiratory 20 20 19 Rate Blood Pressure 104/53 107/57 81/58 O2 Sat by Pulse 100 100 100 Oximetry 11/23/21 11/23/21 11/23/21 05:00 05:15 05:30 Temperature Pulse Rate 104 H 102 H 99 H Pulse Rate [ From Monitor] Respiratory 16 16 16 Rate Blood Pressure 111/66 110/54 102/57 O2 Sat by Pulse 100 100 100 Oximetry 11/23/21 11/23/21 11/23/21 05:45 06:00 06:15 Temperature Pulse Rate 99 H 100 H 101 H Pulse Rate [ From Monitor] Respiratory 20 20 20 Rate Blood Pressure 100/55 102/62 112/70 O2 Sat by Pulse 100 100 100 Oximetry 11/23/21 11/23/21 11/23/21 06:30 06:45 07:00 Temperature Pulse Rate 102 H 104 H 105 H Pulse Rate [ From Monitor] Respiratory 17 20 13 Rate Blood Pressure 124/78 113/69 113/69 O2 Sat by Pulse 100 100 100 Oximetry 11/23/21 11/23/21 07:46 08:00 Temperature 99.1 F Pulse Rate 103 H 92 H Pulse Rate [ From Monitor] Respiratory 20 Rate Blood Pressure 114/38 O2 Sat by Pulse 100 100 Oximetry - General Appearance General appearance: well-developed, obese, other EENT: ATNC Neck: no JVD Respiratory: Present: Decreased Breath Sounds, Other (Has trach) Cardiology: S1S2 Gastrointestinal: normoactive bowel sounds, obese Integumentary: warm and dry Neurologic: other (Awake) Musculoskeletal: joint swelling - Lab 11/23/21 04:00 11/23/21 04:00 Most recent lab results ABG pH 7.467 pH Units (7.350-7.450) H 11/18/21 04:35 ABG pCO2 37.1 mm Hg 11/18/21 04:35 ABG pO2 110.0 mm Hg (80.0-90.0) H 11/18/21 04:35 ABG HCO3 26.2 mmol/L (20.0-26.0) H 11/18/21 04:35 ABG O2 Saturation 98.1 % (95.0-99.0) 11/18/21 04:35 Calcium 8.6 mg/dL (8.4-10.2) 11/23/21 04:00 Phosphorus 4.80 mg/dL (2.5-4.5) H D 11/22/21 04:00 Magnesium 3.80 mg/dL (1.7-2.3) H 11/22/21 04:00 Urine Creatinine 189.3 mg/dL (0.1-20.0) H 11/12/21 02:20 Urine Sodium 30 mmol/L 11/12/21 02:20 Medications & Allergies - Medications Allergies/Adverse Reactions: Allergies No Known Allergies Allergy (Verified 11/11/21 20:58) Home Medications: Home Medications Medication Instructions Recorded Confirmed Last Taken Type No Known Home Medications [No 11/22/21 11/22/21 Unknown History Reported Home Medications] Active Medications: Generic Name Dose Route Start Last Admin Trade Name Freq PRN Reason Stop Dose Admin Acetaminophen 650 mg 11/11/21 22:40 Acetaminophen 325 Mg Tab PO Q4H PRN Pain MILD(1-3)/Fever >100.5/SOTO Albuterol 2.5 mg 11/11/21 22:40 Albuterol 2.5 Mg/3 Ml Nebu IH Q3HRT PRN Shortness Of Breath Aspirin 325 mg 11/17/21 10:00 11/22/21 14:08 Aspirin 325 Mg Tab FEEDTUBE Not Given QDAY PENDING SALE TO [facility] Atorvastatin Calcium 40 mg 11/17/21 22:00 11/22/21 21:14 Atorvastatin 40 Mg Tab FEEDTUBE 40 mg QHS PENDING SALE TO [facility] Administration Dextrose 50 ml 11/18/21 13:00 Dextrose 50% In Water (25gm) 50 Ml Syringe IV Q30MIN PRN Hypoglycemia Protocol Docusate Sodium 100 mg 11/17/21 10:00 11/22/21 21:14 Docusate Sodium 100 Mg/10 Ml Oral Liqd FEEDTUBE Not Given BID BAO Famotidine 20 mg 11/17/21 10:00 11/22/21 14:09 Famotidine 20 Mg Tab FEEDTUBE Not Given QDAY PENDING SALE TO [facility] Fentanyl 50 mcg 11/11/21 20:56 11/22/21 03:45 Fentanyl 100 Mcg/2 Ml Inj IV 50 mcg Q10MIN PRN Administration ANALGESIA Hydrophilic Ointment 1 applic 11/11/21 20:56 Lip Therapy Vaseline TP Q2HR PRN Dry Lips Fentanyl Citrate 2,000 mcg in 100 mls @ 13.608 mls/hr 11/11/21 21:00 11/23/21 08:20 Fentanyl Drip Premix IV 1 mcg/kg/hr TITR BAO 13.608 mls/hr Administration Protocol 1 MCG/KG/HR NORepinephrine/NS 8 MG-250 ML 8 mg in 250 mls @ 3.75 mls/hr 11/11/21 23:00 11/23/21 08:17 Norepinephrine/Ns 8 Mg-250 Ml (Double Conc) IV 4 mcg/min TITRATE BAO 7.5 mls/hr Administration Protocol 2 MCG/MIN Propofol 1,000 mg in 100 mls @ 8.166 mls/hr 11/13/21 09:00 11/23/21 08:05 Diprivan 10 Mg/Ml IV 5 mcg/kg/min TITR BAO 8.166 mls/hr Administration Protocol 5 MCG/KG/MIN Sodium Chloride 100 mls @ 999 mls/hr 11/21/21 08:11 Nacl 0.9% IV LONG PRN Hypotension Insulin Human Lispro 0 unit 11/12/21 00:00 11/23/21 05:09 Insulin Lispro 100 Unit/Ml SUB-Q Not Given Q6HR PENDING SALE TO [facility] Protocol Lorazepam 2 mg 11/21/21 11:00 Lorazepam 2 Mg/Ml Vial IV Q4H PRN Agitation Multi-Ingred Cream/Lotion/Oil/Oint 1 applic 11/11/21 20:56 Mineral Oil/Petrolatum, White Ophth Oint 3.5 Gm OU Q4HR PRN Dry Eye(s) Ondansetron HCl 4 mg 11/11/21 22:40 Ondansetron 4 Mg/2 Ml Inj IV Q8H PRN Nausea And Vomiting Polyethylene Glycol 17 gm 11/22/21 10:00 11/22/21 14:09 Polyethylene Glycol 3350 17 Gm Powder PO Not Given QDAY BAO Senna 8.6 mg 11/17/21 10:00 11/22/21 21:14 Sennosides 8.6 Mg Tab FEEDTUBE Not Given Q12H BAO Sodium Chloride 10 ml 11/12/21 10:00 11/22/21 21:15 Sodium Chloride 0.9% 10 Ml Flush Syringe IV 10 ml BID BAO Administration Sodium Chloride 10 ml 11/11/21 22:40 Sodium Chloride 0.9% 10 Ml Flush Syringe IV PRN PRN LINE FLUSH
[2021-11-23] MEDS: ASPIRIN 325 MG TAB FEEDTUBE SCH (09:30)
[2021-11-23] MEDS: DOCUSATE SODIUM 100 MG/10 ML ORAL LIQD FEEDTUBE SCH ×2 (09:30→21:25)
[2021-11-23] MEDS: FAMOTIDINE 20 MG TAB FEEDTUBE SCH (09:30)
[2021-11-23] MEDS: POLYETHYLENE GLYCOL 3350 17 GM POWDER PO SCH (09:30)
[2021-11-23] MEDS: SENNOSIDES 8.6 MG TAB FEEDTUBE SCH ×2 (09:32→21:25)
--- NOTE | 2021-11-23 10:30 | Progress Note ---
Assessment and Plan 56 y/o morbidly obese male with acute respiratory failure, requiring intubation and now in acute renal failure and in need of HD 11/23/21: Successful trach and peg on yesterday. HD today, post HD start weaning trials. Will need LTACH. Will ask renal about Permcath placement 11/22/21: Follow up post op. Will need LTACH. HD per renal, need to ask them if he will need permacath as well. 11/21/21: Reviewed Gen Surg note. Will reach out to them for further discussion. Continue aggressive volume removal. Wean Pressors as tolerated. 11/18/21: Await Gen Surg comments as they were checking on OR supplies. If not able to, will start working on transfer as patient will need trach given current clinical state. HD per renal. Wean pressors as tolerated. Guarded to poor prognosis. 11/17/21: Follow up Gen Surge eval, they are checking to see the materials they have in OR. Reviewed neck ultrasound, per their read trachea is only about an 1inch away from the skin. Shocking given his neck size but given the difficulty in intubation and his entrance being anterior, this makes sense. Will defer to surgery call but have no problem with calling for transfer as well. Wean Pressors as tolerated. HD per renal. Continue sedation for RASS of 0. Guarded to poor prognosis. 11/16/21: Given patient body habitus, difficult airway and likely no improvement in current clinical state, will need trach. However given his neck size, I would suggest this be done by ENT as I am not even sure that the bovona XLT is long enough. Ok to consult surgery here but I suggest seeking transfer to a tertiary care facility with ENT to attempt this. Also suggest obtaining neck CT to further evaluate total neck anatomy that way if we need to send this over prior to acceptance we can. Guarded prognosis but mental status is intact. HD per renal. 11/15/21: stop sedation. Attempt PSV. Bipap PRN and QHS. Hopeful extubation today. HD per renal. 11/14/21: Wean PEEP again today and attempt PSV trial. If passes will attempt extubation. HD per renal 11/13/21: HD per renal. No PSV trials today. Wean PEEP after HD. Guarded prognosis. 1. Obtain ABG 2. Place Iglesias catheter 3. Wean Pressors for maps greater than 65 4. Insulin, D50 for Hyperkalemia, and HD per renal 5. Stopped scheduled duonebs 6. Stopped abx 7. Obtain BNP with morning labs 8. Guarded prognosis. CCT 31 minutes. Subjective Date of service: 11/23/21 Principal diagnosis: Acute respiratory failure, Interval history: s/p trach and peg on yesterday. AWake and alert, watching TV this am. HD machine in room for dialysis. Tolerated procedure well without complications. Remainder is negative. Objective Vital Signs - 12hr 11/22/21 11/22/21 11/22/21 22:30 22:45 23:00 Temperature Pulse Rate 93 H 94 H 91 H Pulse Rate [ From Monitor] Respiratory 27 H 18 20 Rate Blood Pressure 119/69 115/66 103/56 O2 Sat by Pulse 100 100 100 Oximetry 11/22/21 11/22/21 11/22/21 23:15 23:16 23:30 Temperature Pulse Rate 91 H 91 H 93 H Pulse Rate [ From Monitor] Respiratory 20 20 20 Rate Blood Pressure 121/64 121/64 98/51 O2 Sat by Pulse 100 100 100 Oximetry 11/22/21 11/22/21 11/22/21 23:45 23:47 23:57 Temperature 99.2 F Pulse Rate 96 H 95 H Pulse Rate [ From Monitor] Respiratory 20 Rate Blood Pressure 97/51 97/51 O2 Sat by Pulse 100 100 Oximetry 11/23/21 11/23/21 11/23/21 00:00 00:16 00:30 Temperature Pulse Rate 98 H 96 H 98 H Pulse Rate [ 90 From Monitor] Respiratory 20 20 20 Rate Blood Pressure 79/40 109/54 114/59 O2 Sat by Pulse 100 100 100 Oximetry 11/23/21 11/23/21 11/23/21 00:45 01:00 01:15 Temperature Pulse Rate 97 H 99 H 101 H Pulse Rate [ From Monitor] Respiratory 20 20 31 H Rate Blood Pressure 103/54 120/65 121/68 O2 Sat by Pulse 100 100 100 Oximetry 11/23/21 11/23/21 11/23/21 01:30 01:45 02:00 Temperature Pulse Rate 100 H 102 H 101 H Pulse Rate [ From Monitor] Respiratory 41 H 32 H 29 H Rate Blood Pressure 103/56 99/57 107/56 O2 Sat by Pulse 100 100 100 Oximetry 11/23/21 11/23/21 11/23/21 02:15 02:30 02:45 Temperature Pulse Rate 102 H 102 H 109 H Pulse Rate [ From Monitor] Respiratory 35 H 38 H 29 H Rate Blood Pressure 115/63 115/70 113/62 O2 Sat by Pulse 100 100 100 Oximetry 11/23/21 11/23/21 11/23/21 03:00 03:15 03:30 Temperature Pulse Rate 119 H 102 H 107 H Pulse Rate [ From Monitor] Respiratory 13 20 20 Rate Blood Pressure 124/58 88/36 100/48 O2 Sat by Pulse 98 99 100 Oximetry 11/23/21 11/23/21 11/23/21 03:45 04:00 04:06 Temperature 98.6 F Pulse Rate 108 H 105 H 107 H Pulse Rate [ 90 From Monitor] Respiratory 20 15 Rate Blood Pressure 125/58 96/50 96/50 O2 Sat by Pulse 100 99 100 Oximetry 11/23/21 11/23/21 11/23/21 04:15 04:30 04:46 Temperature Pulse Rate 107 H 108 H 106 H Pulse Rate [ From Monitor] Respiratory 20 20 19 Rate Blood Pressure 104/53 107/57 81/58 O2 Sat by Pulse 100 100 100 Oximetry 11/23/21 11/23/21 11/23/21 05:00 05:15 05:30 Temperature Pulse Rate 104 H 102 H 99 H Pulse Rate [ From Monitor] Respiratory 16 16 16 Rate Blood Pressure 111/66 110/54 102/57 O2 Sat by Pulse 100 100 100 Oximetry 11/23/21 11/23/21 11/23/21 05:45 06:00 06:15 Temperature Pulse Rate 99 H 100 H 101 H Pulse Rate [ From Monitor] Respiratory 20 20 20 Rate Blood Pressure 100/55 102/62 112/70 O2 Sat by Pulse 100 100 100 Oximetry 11/23/21 11/23/21 11/23/21 06:30 06:45 07:00 Temperature Pulse Rate 102 H 104 H 105 H Pulse Rate [ From Monitor] Respiratory 17 20 13 Rate Blood Pressure 124/78 113/69 113/69 O2 Sat by Pulse 100 100 100 Oximetry 11/23/21 11/23/21 11/23/21 07:16 07:30 07:46 Temperature Pulse Rate 105 H 102 H 105 H Pulse Rate [ From Monitor] Respiratory 16 20 21 Rate Blood Pressure 92/33 87/39 96/47 O2 Sat by Pulse 100 100 99 Oximetry 11/23/21 11/23/21 11/23/21 08:00 08:16 08:30 Temperature 99.1 F Pulse Rate 100 H 106 H 98 H Pulse Rate [ From Monitor] Respiratory 18 17 23 Rate Blood Pressure 114/38 92/46 111/61 O2 Sat by Pulse 100 100 100 Oximetry 11/23/21 11/23/21 11/23/21 08:45 09:03 09:15 Temperature Pulse Rate 96 H 102 H 101 H Pulse Rate [ From Monitor] Respiratory 20 19 18 Rate Blood Pressure 95/55 92/33 92/46 O2 Sat by Pulse 100 100 100 Oximetry 11/23/21 11/23/21 09:30 09:45 Temperature Pulse Rate 103 H Pulse Rate [ From Monitor] Respiratory 16 Rate Blood Pressure 99/57 99/57 O2 Sat by Pulse 100 100 Oximetry Constitutional: comatose Eyes: non-icteric ENT: other (orally intubated and sedated) Neck: supple, other (large in circumference) Effort: normal Ascultation: Bilateral: diminished breath sounds Cardiovascular: regular rate and rhythm Gastrointestinal: normoactive bowel sounds Extremities: edema, anasarca Neurologic: unable to assess CBC and BMP: 11/23/21 04:00 11/23/21 04:00 ABG, PT/INR, D-dimer: ABG ABG pH 7.467 pH Units (7.350-7.450) H 11/18/21 04:35 ABG pCO2 37.1 mm Hg 11/18/21 04:35 ABG pO2 110.0 mm Hg (80.0-90.0) H 11/18/21 04:35 ABG O2 Saturation 98.1 % (95.0-99.0) 11/18/21 04:35 PT/INR, D-dimer PT 14.4 Sec. (12.2-14.9) 11/22/21 04:00 INR 1.01 (0.87-1.13) 11/22/21 04:00 Abnormal lab findings: Abnormal Labs 11/11/21 11/11/21 11/11/21 19:49 19:49 23:29 WBC 11.5 H RBC Hgb 10.1 L Hct 34.8 L MCH 27 L MCHC 29 L RDW 20.1 H Lymph % (Auto) 10.0 L [place] % (Auto) 8.8 H Lymph # (Auto) 1.1 L [place] # (Auto) 1.0 H Seg Neutrophils % 79.8 H Seg Neuts % (Manual) Lymphocytes % (Manual) Seg Neutrophils # 9.2 H Seg Neutrophils # Man Lymphocytes # (Manual) ABG pH ABG pO2 ABG HCO3 ABG O2 Saturation ABG Base Excess ABG Hemoglobin Sodium Potassium 7.6 H* Chloride 107.8 H Carbon Dioxide 13 L BUN 107 H Creatinine 13.8 H Glucose POC Glucose Calcium 7.5 L Phosphorus Magnesium Iron TIBC Total Creatine Kinase 268 H Troponin T 0.324 H* NT-Pro-B Natriuret Pep Total Protein 9.1 H Albumin 3.0 L PTH Intact Urine WBC (Auto) Urine Creatinine 11/11/21 11/11/21 11/12/21 23:29 23:29 02:20 WBC RBC Hgb Hct MCH MCHC RDW Lymph % (Auto) [place] % (Auto) Lymph # (Auto) [place] # (Auto) Seg Neutrophils % Seg Neuts % (Manual) Lymphocytes % (Manual) Seg Neutrophils # Seg Neutrophils # Man Lymphocytes # (Manual) ABG pH ABG pO2 ABG HCO3 ABG O2 Saturation ABG Base Excess ABG Hemoglobin Sodium Potassium Chloride Carbon Dioxide BUN Creatinine Glucose POC Glucose Calcium Phosphorus Magnesium Iron 24 L TIBC 157 L Total Creatine Kinase Troponin T NT-Pro-B Natriuret Pep Total Protein Albumin PTH Intact 1174 H Urine WBC (Auto) Urine Creatinine 189.3 H 11/12/21 11/12/21 11/12/21 02:20 02:28 06:55 WBC 20.5 H RBC 3.54 L Hgb 9.4 L Hct 32.3 L MCH 27 L MCHC 29 L RDW 20.0 H Lymph % (Auto) [place] % (Auto) Lymph # (Auto) [place] # (Auto) Seg Neutrophils % Seg Neuts % (Manual) 89.0 H Lymphocytes % (Manual) 0 L Seg Neutrophils # Seg Neutrophils # Man 18.2 H Lymphocytes # (Manual) 0.0 L ABG pH 7.172 L* ABG pO2 100.6 H ABG HCO3 17.4 L ABG O2 Saturation ABG Base Excess -10.6 L ABG Hemoglobin 9.4 L Sodium Potassium Chloride Carbon Dioxide BUN Creatinine Glucose POC Glucose Calcium Phosphorus Magnesium Iron TIBC Total Creatine Kinase Troponin T NT-Pro-B Natriuret Pep Total Protein Albumin PTH Intact Urine WBC (Auto) 12.0 H Urine Creatinine 11/12/21 11/12/21 11/12/21 06:55 09:10 12:01 WBC RBC Hgb Hct MCH MCHC RDW Lymph % (Auto) [place] % (Auto) Lymph # (Auto) [place] # (Auto) Seg Neutrophils % Seg Neuts % (Manual) Lymphocytes % (Manual) Seg Neutrophils # Seg Neutrophils # Man Lymphocytes # (Manual) ABG pH 7.296 L ABG pO2 237.3 H ABG HCO3 ABG O2 Saturation 99.3 H ABG Base Excess -6.0 L ABG Hemoglobin 8.8 L Sodium Potassium 5.5 H D Chloride 107.1 H Carbon Dioxide 19 L BUN 78 H Creatinine 9.4 H Glucose 119 H POC Glucose 106 H Calcium 8.1 L Phosphorus Magnesium Iron TIBC Total Creatine Kinase Troponin T NT-Pro-B Natriuret Pep Total Protein Albumin PTH Intact Urine WBC (Auto) Urine Creatinine 11/12/21 11/12/21 11/12/21 16:46 16:46 22:30 WBC RBC Hgb Hct MCH MCHC RDW Lymph % (Auto) [place] % (Auto) Lymph # (Auto) [place] # (Auto) Seg Neutrophils % Seg Neuts % (Manual) Lymphocytes % (Manual) Seg Neutrophils # Seg Neutrophils # Man Lymphocytes # (Manual) ABG pH ABG pO2 ABG HCO3 ABG O2 Saturation ABG Base Excess ABG Hemoglobin Sodium 146 H Potassium Chloride 108.2 H Carbon Dioxide 21 L BUN 66 H Creatinine 9.8 H Glucose 125 H POC Glucose Calcium 7.8 L Phosphorus Magnesium Iron TIBC Total Creatine Kinase Troponin T 0.319 H* 0.313 H* NT-Pro-B Natriuret Pep Total Protein Albumin PTH Intact Urine WBC (Auto) Urine Creatinine 11/12/21 11/12/21 11/13/21 23:18 Unknown 04:00 WBC 17.2 H RBC 3.09 L Hgb 8.4 L Hct 27.5 L MCH 27 L MCHC 30 L RDW 19.6 H Lymph % (Auto) [place] % (Auto) Lymph # (Auto) [place] # (Auto) Seg Neutrophils % Seg Neuts % (Manual) Lymphocytes % (Manual) Seg Neutrophils # Seg Neutrophils # Man Lymphocytes # (Manual) ABG pH ABG pO2 ABG HCO3 ABG O2 Saturation ABG Base Excess ABG Hemoglobin Sodium Potassium Chloride Carbon Dioxide BUN Creatinine Glucose POC Glucose 120 H Calcium Phosphorus Magnesium Iron TIBC Total Creatine Kinase Troponin T NT-Pro-B Natriuret Pep 3674 H Total Protein Albumin PTH Intact Urine WBC (Auto) Urine Creatinine 11/13/21 11/13/21 11/13/21 04:00 04:00 05:23 WBC RBC Hgb Hct MCH MCHC RDW Lymph % (Auto) [place] % (Auto) Lymph # (Auto) [place] # (Auto) Seg Neutrophils % Seg Neuts % (Manual) Lymphocytes % (Manual) Seg Neutrophils # Seg Neutrophils # Man Lymphocytes # (Manual) ABG pH 7.274 L ABG pO2 93.2 H ABG HCO3 ABG O2 Saturation ABG Base Excess -3.9 L ABG Hemoglobin 8.2 L Sodium Potassium Chloride Carbon Dioxide 21 L BUN 71 H Creatinine 9.9 H Glucose 128 H POC Glucose 117 H Calcium 7.7 L Phosphorus 5.10 H Magnesium 1.60 L Iron TIBC Total Creatine Kinase Troponin T NT-Pro-B Natriuret Pep Total Protein Albumin PTH Intact Urine WBC (Auto) Urine Creatinine 11/13/21 11/13/21 11/14/21 16:20 23:31 04:10 WBC RBC Hgb Hct MCH MCHC RDW Lymph % (Auto) [place] % (Auto) Lymph # (Auto) [place] # (Auto) Seg Neutrophils % Seg Neuts % (Manual) Lymphocytes % (Manual) Seg Neutrophils # Seg Neutrophils # Man Lymphocytes # (Manual) ABG pH ABG pO2 107.1 H ABG HCO3 ABG O2 Saturation ABG Base Excess ABG Hemoglobin 6.5 L Sodium Potassium Chloride Carbon Dioxide BUN Creatinine Glucose POC Glucose 125 H 123 H Calcium Phosphorus Magnesium Iron TIBC Total Creatine Kinase Troponin T NT-Pro-B Natriuret Pep Total Protein Albumin PTH Intact Urine WBC (Auto) Urine Creatinine 11/14/21 11/14/21 11/14/21 06:30 06:30 15:00 WBC 11.2 H RBC 3.03 L Hgb 8.1 L Hct 26.6 L MCH 27 L MCHC 30 L RDW 19.3 H Lymph % (Auto) [place] % (Auto) Lymph # (Auto) [place] # (Auto) Seg Neutrophils % Seg Neuts % (Manual) Lymphocytes % (Manual) Seg Neutrophils # Seg Neutrophils # Man Lymphocytes # (Manual) ABG pH ABG pO2 ABG HCO3 ABG O2 Saturation ABG Base Excess ABG Hemoglobin Sodium Potassium 3.0 L D 3.4 L Chloride Carbon Dioxide BUN 41 H Creatinine 7.0 H Glucose 107 H POC Glucose Calcium 7.5 L Phosphorus Magnesium 1.60 L Iron TIBC Total Creatine Kinase Troponin T NT-Pro-B Natriuret Pep Total Protein Albumin PTH Intact Urine WBC (Auto) Urine Creatinine 11/14/21 11/15/21 11/15/21 17:24 04:00 04:00 WBC 11.3 H RBC 3.00 L Hgb 8.1 L Hct 26.3 L MCH 27 L MCHC 31 L RDW 19.2 H Lymph % (Auto) [place] % (Auto) Lymph # (Auto) [place] # (Auto) Seg Neutrophils % Seg Neuts % (Manual) Lymphocytes % (Manual) Seg Neutrophils # Seg Neutrophils # Man Lymphocytes # (Manual) ABG pH ABG pO2 ABG HCO3 ABG O2 Saturation ABG Base Excess ABG Hemoglobin Sodium Potassium 3.4 L Chloride Carbon Dioxide BUN 32 H Creatinine 5.9 H Glucose 117 H POC Glucose 124 H Calcium 8.3 L Phosphorus Magnesium Iron TIBC Total Creatine Kinase Troponin T NT-Pro-B Natriuret Pep Total Protein Albumin PTH Intact Urine WBC (Auto) Urine Creatinine 11/15/21 11/15/21 11/16/21 13:58 16:20 04:00 WBC 13.2 H RBC 2.88 L Hgb 7.8 L Hct 25.2 L MCH 27 L MCHC 31 L RDW 19.1 H Lymph % (Auto) [place] % (Auto) Lymph # (Auto) [place] # (Auto) Seg Neutrophils % Seg Neuts % (Manual) Lymphocytes % (Manual) Seg Neutrophils # Seg Neutrophils # Man Lymphocytes # (Manual) ABG pH 7.335 L ABG pO2 254.0 H ABG HCO3 26.2 H ABG O2 Saturation 99.4 H ABG Base Excess ABG Hemoglobin 8.5 L Sodium Potassium Chloride Carbon Dioxide BUN Creatinine Glucose POC Glucose 132 H Calcium Phosphorus Magnesium Iron TIBC Total Creatine Kinase Troponin T NT-Pro-B Natriuret Pep Total Protein Albumin PTH Intact Urine WBC (Auto) Urine Creatinine 11/16/21 11/16/21 11/16/21 04:00 04:05 11:06 WBC RBC Hgb Hct MCH MCHC RDW Lymph % (Auto) [place] % (Auto) Lymph # (Auto) [place] # (Auto) Seg Neutrophils % Seg Neuts % (Manual) Lymphocytes % (Manual) Seg Neutrophils # Seg Neutrophils # Man Lymphocytes # (Manual) ABG pH ABG pO2 115.6 H ABG HCO3 ABG O2 Saturation ABG Base Excess ABG Hemoglobin 8.1 L Sodium Potassium Chloride Carbon Dioxide BUN 44 H Creatinine 7.7 H Glucose 104 H POC Glucose 106 H Calcium 7.9 L Phosphorus Magnesium Iron TIBC Total Creatine Kinase Troponin T NT-Pro-B Natriuret Pep Total Protein Albumin PTH Intact Urine WBC (Auto) Urine Creatinine 11/16/21 11/16/21 11/17/21 18:05 23:51 04:15 WBC 11.8 H RBC 3.02 L Hgb 8.1 L Hct 26.9 L MCH 27 L MCHC 30 L RDW 18.9 H Lymph % (Auto) [place] % (Auto) Lymph # (Auto) [place] # (Auto) Seg Neutrophils % Seg Neuts % (Manual) Lymphocytes % (Manual) Seg Neutrophils # Seg Neutrophils # Man Lymphocytes # (Manual) ABG pH ABG pO2 ABG HCO3 ABG O2 Saturation ABG Base Excess ABG Hemoglobin Sodium Potassium Chloride Carbon Dioxide BUN Creatinine Glucose POC Glucose 109 H 118 H Calcium Phosphorus Magnesium Iron TIBC Total Creatine Kinase Troponin T NT-Pro-B Natriuret Pep Total Protein Albumin PTH Intact Urine WBC (Auto) Urine Creatinine 11/17/21 11/17/21 11/17/21 04:15 04:25 11:25 WBC RBC Hgb Hct MCH MCHC RDW Lymph % (Auto) [place] % (Auto) Lymph # (Auto) [place] # (Auto) Seg Neutrophils % Seg Neuts % (Manual) Lymphocytes % (Manual) Seg Neutrophils # Seg Neutrophils # Man Lymphocytes # (Manual) ABG pH ABG pO2 153.8 H ABG HCO3 ABG O2 Saturation ABG Base Excess ABG Hemoglobin 8.3 L Sodium Potassium Chloride Carbon Dioxide BUN 33 H Creatinine 6.2 H Glucose 118 H POC Glucose 108 H Calcium Phosphorus Magnesium Iron TIBC Total Creatine Kinase Troponin T NT-Pro-B Natriuret Pep Total Protein Albumin PTH Intact Urine WBC (Auto) Urine Creatinine 11/18/21 11/18/21 11/18/21 04:00 04:00 04:35 WBC RBC 2.88 L Hgb 7.8 L Hct 25.3 L MCH 27 L MCHC 31 L RDW 18.7 H Lymph % (Auto) [place] % (Auto) Lymph # (Auto) [place] # (Auto) Seg Neutrophils % Seg Neuts % (Manual) Lymphocytes % (Manual) Seg Neutrophils # Seg Neutrophils # Man Lymphocytes # (Manual) ABG pH 7.467 H ABG pO2 110.0 H ABG HCO3 26.2 H ABG O2 Saturation ABG Base Excess ABG Hemoglobin 8.1 L Sodium Potassium Chloride Carbon Dioxide BUN 28 H Creatinine 5.5 H Glucose POC Glucose Calcium Phosphorus Magnesium Iron TIBC Total Creatine Kinase Troponin T NT-Pro-B Natriuret Pep Total Protein Albumin PTH Intact Urine WBC (Auto) Urine Creatinine 11/18/21 11/19/21 11/19/21 11:50 04:00 11:30 WBC RBC Hgb Hct MCH MCHC RDW Lymph % (Auto) [place] % (Auto) Lymph # (Auto) [place] # (Auto) Seg Neutrophils % Seg Neuts % (Manual) Lymphocytes % (Manual) Seg Neutrophils # Seg Neutrophils # Man Lymphocytes # (Manual) ABG pH ABG pO2 ABG HCO3 ABG O2 Saturation ABG Base Excess ABG Hemoglobin Sodium Potassium Chloride Carbon Dioxide BUN 26 H Creatinine 4.7 H Glucose 110 H POC Glucose 131 H 106 H Calcium Phosphorus Magnesium Iron TIBC Total Creatine Kinase Troponin T NT-Pro-B Natriuret Pep Total Protein Albumin PTH Intact Urine WBC (Auto) Urine Creatinine 11/19/21 11/20/21 11/20/21 17:09 00:14 04:00 WBC RBC Hgb Hct MCH MCHC RDW Lymph % (Auto) [place] % (Auto) Lymph # (Auto) [place] # (Auto) Seg Neutrophils % Seg Neuts % (Manual) Lymphocytes % (Manual) Seg Neutrophils # Seg Neutrophils # Man Lymphocytes # (Manual) ABG pH ABG pO2 ABG HCO3 ABG O2 Saturation ABG Base Excess ABG Hemoglobin Sodium 134 L Potassium Chloride 94.4 L Carbon Dioxide BUN 25 H Creatinine 4.6 H Glucose 117 H POC Glucose 129 H 115 H Calcium Phosphorus Magnesium Iron TIBC Total Creatine Kinase Troponin T NT-Pro-B Natriuret Pep Total Protein Albumin PTH Intact Urine WBC (Auto) Urine Creatinine 11/20/21 11/21/21 11/21/21 11:36 04:00 04:00 WBC 12.0 H RBC 2.85 L Hgb 7.8 L Hct 24.8 L MCH MCHC RDW 18.5 H Lymph % (Auto) [place] % (Auto) Lymph # (Auto) [place] # (Auto) Seg Neutrophils % Seg Neuts % (Manual) Lymphocytes % (Manual) Seg Neutrophils # Seg Neutrophils # Man Lymphocytes # (Manual) ABG pH ABG pO2 ABG HCO3 ABG O2 Saturation ABG Base Excess ABG Hemoglobin Sodium 133 L Potassium Chloride 95.3 L Carbon Dioxide BUN 40 H Creatinine 6.2 H Glucose 103 H POC Glucose 117 H Calcium Phosphorus Magnesium Iron TIBC Total Creatine Kinase Troponin T NT-Pro-B Natriuret Pep Total Protein Albumin PTH Intact Urine WBC (Auto) Urine Creatinine 11/21/21 11/21/21 11/22/21 11:38 18:13 00:41 WBC RBC Hgb Hct MCH MCHC RDW Lymph % (Auto) [place] % (Auto) Lymph # (Auto) [place] # (Auto) Seg Neutrophils % Seg Neuts % (Manual) Lymphocytes % (Manual) Seg Neutrophils # Seg Neutrophils # Man Lymphocytes # (Manual) ABG pH ABG pO2 ABG HCO3 ABG O2 Saturation ABG Base Excess ABG Hemoglobin Sodium Potassium Chloride Carbon Dioxide BUN Creatinine Glucose POC Glucose 127 H 112 H 106 H Calcium Phosphorus Magnesium Iron TIBC Total Creatine Kinase Troponin T NT-Pro-B Natriuret Pep Total Protein Albumin PTH Intact Urine WBC (Auto) Urine Creatinine 11/22/21 11/22/21 11/22/21 04:00 04:00 08:30 WBC 16.1 H 14.8 H RBC 3.01 L 2.95 L Hgb 8.1 L 7.8 L Hct 26.6 L 26.3 L MCH 27 L 27 L MCHC 31 L 30 L RDW 18.3 H 18.9 H Lymph % (Auto) 5.7 L [place] % (Auto) 13.0 H Lymph # (Auto) 0.8 L [place] # (Auto) 1.9 H Seg Neutrophils % 79.5 H Seg Neuts % (Manual) Lymphocytes % (Manual) Seg Neutrophils # 11.8 H Seg Neutrophils # Man Lymphocytes # (Manual) ABG pH ABG pO2 ABG HCO3 ABG O2 Saturation ABG Base Excess ABG Hemoglobin Sodium 136 L Potassium Chloride 97.6 L Carbon Dioxide BUN 35 H Creatinine 5.8 H Glucose 120 H POC Glucose Calcium Phosphorus 4.80 H D Magnesium 3.80 H Iron TIBC Total Creatine Kinase Troponin T NT-Pro-B Natriuret Pep Total Protein Albumin PTH Intact Urine WBC (Auto) Urine Creatinine 11/22/21 11/22/21 11/23/21 08:30 16:39 04:00 WBC 13.7 H RBC 2.93 L Hgb 7.8 L Hct 25.7 L MCH 27 L MCHC 30 L RDW 18.5 H Lymph % (Auto) [place] % (Auto) Lymph # (Auto) [place] # (Auto) Seg Neutrophils % Seg Neuts % (Manual) Lymphocytes % (Manual) Seg Neutrophils # Seg Neutrophils # Man Lymphocytes # (Manual) ABG pH ABG pO2 ABG HCO3 ABG O2 Saturation ABG Base Excess ABG Hemoglobin Sodium Potassium 5.3 H Chloride Carbon Dioxide BUN 36 H Creatinine 6.1 H Glucose 117 H POC Glucose 119 H Calcium Phosphorus Magnesium Iron TIBC Total Creatine Kinase 534 H Troponin T 0.294 H* NT-Pro-B Natriuret Pep Total Protein Albumin PTH Intact Urine WBC (Auto) Urine Creatinine 11/23/21 04:00 WBC RBC Hgb Hct MCH MCHC RDW Lymph % (Auto) [place] % (Auto) Lymph # (Auto) [place] # (Auto) Seg Neutrophils % Seg Neuts % (Manual) Lymphocytes % (Manual) Seg Neutrophils # Seg Neutrophils # Man Lymphocytes # (Manual) ABG pH ABG pO2 ABG HCO3 ABG O2 Saturation ABG Base Excess ABG Hemoglobin Sodium Potassium Chloride Carbon Dioxide BUN 27 H Creatinine 5.1 H Glucose 106 H POC Glucose Calcium Phosphorus Magnesium Iron TIBC Total Creatine Kinase Troponin T NT-Pro-B Natriuret Pep Total Protein Albumin PTH Intact Urine WBC (Auto) Urine Creatinine Allied health notes reviewed: nursing
[2021-11-23] MEDS: ALBUMIN HUMAN 25% (12.5 GM/50 ML) INJ IV PRN (11:05)
[2021-11-23] MEDS ORDERED: HYDROCORTISONE SOD SUCC 100 MG/2 ML VIAL IV ONE (11:10)
[2021-11-23] MEDS ORDERED: SODIUM CHLORIDE 0.9% 1000 ML 1,000 ML ONE (11:49)
[2021-11-23] MEDS ORDERED: VASOPRESSIN 20 UNIT in SODIUM CHLORIDE 0.9% 100 ML IV SCH (12:00)
[2021-11-23] MEDS ORDERED: SODIUM CHLORIDE 0.9% 1000 ML 1,000 ML IV SCH (13:00)
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
--- NOTE | 2021-11-23 13:50 | Progress Note ---
Assessment and Plan 56-year-old male status post Trach/PEG, POD 1 Plan: 1. resume TF 2. Routine trach care 3. Vent management per ICU team 4. Will s/o Thank you, please call with questions. Subjective Date of service: 11/23/21 Narrative: Patient seen and examined. He is awake on the vent. He has no acute complaints. He denies pain. Objective Vital Signs - 12hr 11/23/21 11/23/21 11/23/21 02:00 02:15 02:30 Temperature Pulse Rate 101 H 102 H 102 H Pulse Rate [ From Monitor] Respiratory 29 H 35 H 38 H Rate Blood Pressure 107/56 115/63 115/70 O2 Sat by Pulse 100 100 100 Oximetry O2 Sat by Pulse Oximetry [ Anterior Bilateral Throughout] 11/23/21 11/23/21 11/23/21 02:45 03:00 03:15 Temperature Pulse Rate 109 H 119 H 102 H Pulse Rate [ From Monitor] Respiratory 29 H 13 20 Rate Blood Pressure 113/62 124/58 88/36 O2 Sat by Pulse 100 98 99 Oximetry O2 Sat by Pulse Oximetry [ Anterior Bilateral Throughout] 11/23/21 11/23/21 11/23/21 03:30 03:45 04:00 Temperature 98.6 F Pulse Rate 107 H 108 H 105 H Pulse Rate [ 90 From Monitor] Respiratory 20 20 15 Rate Blood Pressure 100/48 125/58 96/50 O2 Sat by Pulse 100 100 99 Oximetry O2 Sat by Pulse Oximetry [ Anterior Bilateral Throughout] 11/23/21 11/23/21 11/23/21 04:06 04:15 04:30 Temperature Pulse Rate 107 H 107 H 108 H Pulse Rate [ From Monitor] Respiratory 20 20 Rate Blood Pressure 96/50 104/53 107/57 O2 Sat by Pulse 100 100 100 Oximetry O2 Sat by Pulse Oximetry [ Anterior Bilateral Throughout] 11/23/21 11/23/21 11/23/21 04:46 05:00 05:15 Temperature Pulse Rate 106 H 104 H 102 H Pulse Rate [ From Monitor] Respiratory 19 16 16 Rate Blood Pressure 81/58 111/66 110/54 O2 Sat by Pulse 100 100 100 Oximetry O2 Sat by Pulse Oximetry [ Anterior Bilateral Throughout] 11/23/21 11/23/21 11/23/21 05:30 05:45 06:00 Temperature Pulse Rate 99 H 99 H 100 H Pulse Rate [ From Monitor] Respiratory 16 20 20 Rate Blood Pressure 102/57 100/55 102/62 O2 Sat by Pulse 100 100 100 Oximetry O2 Sat by Pulse Oximetry [ Anterior Bilateral Throughout] 11/23/21 11/23/21 11/23/21 06:15 06:30 06:45 Temperature Pulse Rate 101 H 102 H 104 H Pulse Rate [ From Monitor] Respiratory 20 17 20 Rate Blood Pressure 112/70 124/78 113/69 O2 Sat by Pulse 100 100 100 Oximetry O2 Sat by Pulse Oximetry [ Anterior Bilateral Throughout] 11/23/21 11/23/21 11/23/21 07:00 07:16 07:30 Temperature Pulse Rate 105 H 105 H 102 H Pulse Rate [ From Monitor] Respiratory 13 16 20 Rate Blood Pressure 113/69 92/33 87/39 O2 Sat by Pulse 100 100 100 Oximetry O2 Sat by Pulse Oximetry [ Anterior Bilateral Throughout] 11/23/21 11/23/21 11/23/21 07:46 08:00 08:16 Temperature 99.1 F Pulse Rate 105 H 100 H 106 H Pulse Rate [ From Monitor] Respiratory 21 18 17 Rate Blood Pressure 96/47 114/38 92/46 O2 Sat by Pulse 99 100 100 Oximetry O2 Sat by Pulse Oximetry [ Anterior Bilateral Throughout] 11/23/21 11/23/21 11/23/21 08:30 08:45 09:03 Temperature Pulse Rate 98 H 96 H 102 H Pulse Rate [ From Monitor] Respiratory 23 20 19 Rate Blood Pressure 111/61 95/55 92/33 O2 Sat by Pulse 100 100 100 Oximetry O2 Sat by Pulse Oximetry [ Anterior Bilateral Throughout] 11/23/21 11/23/21 11/23/21 09:15 09:30 09:45 Temperature Pulse Rate 101 H 103 H Pulse Rate [ From Monitor] Respiratory 18 16 Rate Blood Pressure 92/46 99/57 99/57 O2 Sat by Pulse 100 100 100 Oximetry O2 Sat by Pulse Oximetry [ Anterior Bilateral Throughout] 11/23/21 11/23/21 11/23/21 10:00 10:15 10:29 Temperature Pulse Rate 103 H 105 H 96 H Pulse Rate [ From Monitor] Respiratory 20 Rate Blood Pressure 104/59 114/62 96/59 O2 Sat by Pulse 100 100 Oximetry O2 Sat by Pulse 100 Oximetry [ Anterior Bilateral Throughout] 04/02/0811/23/21 11/23/21 10:31 10:34 10:45 Temperature Pulse Rate 102 H 97 H 98 H Pulse Rate [ From Monitor] Respiratory Rate Blood Pressure 76/35 106/65 106/65 O2 Sat by Pulse 100 100 Oximetry O2 Sat by Pulse Oximetry [ Anterior Bilateral Throughout] 11/23/21 11/23/21 11/23/21 10:46 10:52 11:00 Temperature Pulse Rate 100 H 82 84 Pulse Rate [ From Monitor] Respiratory 21 Rate Blood Pressure 43/27 89/48 79/33 O2 Sat by Pulse 100 Oximetry O2 Sat by Pulse Oximetry [ Anterior Bilateral Throughout] 11/23/21 11/23/21 11/23/21 11:15 11:31 11:44 Temperature Pulse Rate 94 H 96 H 100 H Pulse Rate [ From Monitor] Respiratory 16 15 Rate Blood Pressure 72/28 67/28 O2 Sat by Pulse 100 100 100 Oximetry O2 Sat by Pulse Oximetry [ Anterior Bilateral Throughout] 11/23/21 11/23/21 11/23/21 11:45 12:00 12:01 Temperature 99.3 F Pulse Rate 80 100 H 95 H Pulse Rate [ From Monitor] Respiratory 14 Rate Blood Pressure 67/28 67/28 O2 Sat by Pulse 99 100 100 Oximetry O2 Sat by Pulse Oximetry [ Anterior Bilateral Throughout] 11/23/21 11/23/21 11/23/21 12:15 12:30 12:45 Temperature Pulse Rate 97 H 100 H 109 H Pulse Rate [ From Monitor] Respiratory 21 22 19 Rate Blood Pressure 205/107 220/118 182/113 O2 Sat by Pulse 100 100 100 Oximetry O2 Sat by Pulse Oximetry [ Anterior Bilateral Throughout] - General physical appearance Narrative Exam: Gen.: Awake, alert. On vent via trach. No apparent distress ENT: Trachea midline. Tracheostomy in place without evidence of bleeding. No swelling. No scleral icterus or conjunctival pallor CV: S1, S2 present Respiratory: No audible wheezes Abdomen: Soft, nondistended, nontender. PEG in place with outer bumper at 5 at the skin. No rebound, rigidity, guarding Extremities: No clubbing, cyanosis, edema - Labs 11/23/21 04:00 11/23/21 04:00 Diabetes panel 11/23/21 Range/Units 04:00 Sodium 137 (137-145) mmol/L Potassium 4.9 (3.6-5.0) mmol/L Chloride 98.7 (98-107) mmol/L Carbon Dioxide 25 (22-30) mmol/L BUN 27 H (9-20) mg/dL Creatinine 5.1 H (0.8-1.3) mg/dL Glucose 106 H (75-100) mg/dL Calcium 8.6 (8.4-10.2) mg/dL Calcium panel 11/23/21 Range/Units 04:00 Calcium 8.6 (8.4-10.2) mg/dL Pituitary panel 11/23/21 Range/Units 04:00 Sodium 137 (137-145) mmol/L Potassium 4.9 (3.6-5.0) mmol/L Chloride 98.7 (98-107) mmol/L Carbon Dioxide 25 (22-30) mmol/L BUN 27 H (9-20) mg/dL Creatinine 5.1 H (0.8-1.3) mg/dL Glucose 106 H (75-100) mg/dL Calcium 8.6 (8.4-10.2) mg/dL Adrenal panel 11/23/21 Range/Units 04:00 Sodium 137 (137-145) mmol/L Potassium 4.9 (3.6-5.0) mmol/L Chloride 98.7 (98-107) mmol/L Carbon Dioxide 25 (22-30) mmol/L BUN 27 H (9-20) mg/dL Creatinine 5.1 H (0.8-1.3) mg/dL Glucose 106 H (75-100) mg/dL Calcium 8.6 (8.4-10.2) mg/dL
--- NOTE | 2021-11-23 14:15 | Post Anesthesia Evaluation ---
- Post Anesthesia Evaluation Patient Participated: Yes (Patient able to nod appropriately) Airway Patent: Yes Stable Respiratory Function: Yes Nausea/Vomiting: No Temp > 96.8F: Yes Pain Manageable: Yes Adequeate Hydration: Yes Anesthesia Complications: No Block Receding Appropriately: Not Applicable Patient on Ventilator: Yes Other Comments: Patient alert and oriented and of all sedation at this time. Vitals WNL with norepinephrine infusing @ 30 mcg/min and vasopressin infusing @ 0.03 units/min. Vasopressor requirements increased after dialysis today and nurse is actively trying to titrate down.
[2021-11-24] MEDS: NORepinephrine/NS 8 MG-250 ML 8 MG/250 ML INFUS..BTL IV SCH (00:05)
[2021-11-24] MEDS: INSULIN LISPRO 100 UNIT/ML SUB-Q SCH ×4 (00:05→18:20)
[2021-11-24] MEDS: fentaNYL DRIP Premix 2,000 MCG/100 ML BAG IV SCH ×2 (01:41→08:00)
[2021-11-24 04:50] LABS: Hematocrit 24.4 % (35.5-45.6); Hemoglobin 7.4 gm/dl (11.8-15.2); Mean Corpuscular HGB Conc 30 % (32-34); Mean Corpuscular Volume 88 fl (84-94); Platelet Count 253 K/mm3 (140-440); Red Blood Count 2.77 M/mm3 (3.65-5.03); Red Cell Distribution Width 18.5 % (13.2-15.2)
[2021-11-24 05:32] LABS: Calcium 8.5 mg/dL (8.4-10.2)
--- NOTE | 2021-11-24 09:03 | Progress Note ---
Assessment and Plan Acute respiratory failure Pneumonia Hypoxia KD (acute kidney injury) on top of CKD Hyperkalemia Diabetes Elevated troponin Hypertension Obesity Acidosis Plan -low BP with HD yesterday, will hold for today -will assess HD needs daily -Renal ultrasound- Left kidney no visualized. No hydronephrosis to right kidney -Renally dose all medications -Obtain daily weights -Monitor I/O's daily -Assess dialysis needs daily Subjective Date of service: 11/24/21 Principal diagnosis: Acute respiratory failure, Interval history: in ICU, on the vent Objective - Vital Signs Vital signs: Vital Signs - 12hr 11/23/21 11/23/21 11/23/21 21:15 21:30 21:45 Temperature Pulse Rate 94 H 91 H 91 H Pulse Rate [ From Monitor] Respiratory 20 20 20 Rate Blood Pressure 108/59 115/65 115/65 O2 Sat by Pulse 97 95 99 Oximetry O2 Sat by Pulse Oximetry [ Assessment] 11/23/21 11/23/21 11/23/21 22:00 22:15 22:30 Temperature Pulse Rate 96 H 92 H 93 H Pulse Rate [ From Monitor] Respiratory 20 20 20 Rate Blood Pressure 123/69 123/69 115/63 O2 Sat by Pulse 97 95 Oximetry O2 Sat by Pulse Oximetry [ Assessment] 11/23/21 11/23/21 11/23/21 22:45 22:54 23:00 Temperature Pulse Rate 89 87 104 H Pulse Rate [ From Monitor] Respiratory 20 20 19 Rate Blood Pressure 115/63 115/63 115/63 O2 Sat by Pulse 97 98 97 Oximetry O2 Sat by Pulse Oximetry [ Assessment] 11/23/21 11/23/21 11/23/21 23:15 23:16 23:30 Temperature Pulse Rate 97 H 97 H 100 H Pulse Rate [ From Monitor] Respiratory 20 20 21 Rate Blood Pressure 119/80 119/80 119/80 O2 Sat by Pulse 99 99 99 Oximetry O2 Sat by Pulse Oximetry [ Assessment] 11/23/21 11/23/21 11/24/21 23:45 23:46 00:00 Temperature 99.0 F Pulse Rate 93 H 100 H 103 H Pulse Rate [ From Monitor] Respiratory 20 19 18 Rate Blood Pressure 126/75 126/75 126/75 O2 Sat by Pulse 99 100 95 Oximetry O2 Sat by Pulse Oximetry [ Assessment] 11/24/21 11/24/21 11/24/21 00:15 00:16 00:30 Temperature Pulse Rate 102 H 102 H 102 H Pulse Rate [ From Monitor] Respiratory 20 21 Rate Blood Pressure 126/75 134/78 124/67 O2 Sat by Pulse 98 97 96 Oximetry O2 Sat by Pulse Oximetry [ Assessment] 11/24/21 11/24/21 11/24/21 00:45 01:01 01:15 Temperature Pulse Rate 104 H 99 H 102 H Pulse Rate [ From Monitor] Respiratory 16 13 19 Rate Blood Pressure 124/67 124/68 124/68 O2 Sat by Pulse 97 90 96 Oximetry O2 Sat by Pulse Oximetry [ Assessment] 11/24/21 11/24/21 11/24/21 01:30 01:45 02:00 Temperature Pulse Rate 96 H 96 H 96 H Pulse Rate [ From Monitor] Respiratory 20 19 17 Rate Blood Pressure 96/50 96/50 94/56 O2 Sat by Pulse 94 98 91 Oximetry O2 Sat by Pulse Oximetry [ Assessment] 11/24/21 11/24/21 11/24/21 02:15 02:30 02:45 Temperature Pulse Rate 93 H 95 H 90 Pulse Rate [ From Monitor] Respiratory 20 20 20 Rate Blood Pressure 94/56 98/54 98/54 O2 Sat by Pulse 97 95 99 Oximetry O2 Sat by Pulse Oximetry [ Assessment] 11/24/21 11/24/21 11/24/21 03:00 03:15 03:30 Temperature Pulse Rate 92 H 89 88 Pulse Rate [ From Monitor] Respiratory 20 20 20 Rate Blood Pressure 87/51 87/51 97/50 O2 Sat by Pulse 98 97 96 Oximetry O2 Sat by Pulse Oximetry [ Assessment] 11/24/21 11/24/21 11/24/21 03:45 04:00 04:15 Temperature 98.5 F Pulse Rate 90 93 H 96 H Pulse Rate [ From Monitor] Respiratory 19 17 16 Rate Blood Pressure 97/50 101/59 101/59 O2 Sat by Pulse 97 98 97 Oximetry O2 Sat by Pulse Oximetry [ Assessment] 11/24/21 11/24/21 11/24/21 04:31 04:34 04:45 Temperature Pulse Rate 100 H 107 H 100 H Pulse Rate [ From Monitor] Respiratory 18 16 Rate Blood Pressure 101/59 108/62 108/62 O2 Sat by Pulse 93 95 100 Oximetry O2 Sat by Pulse Oximetry [ Assessment] 11/24/21 11/24/21 11/24/21 04:47 05:00 05:15 Temperature Pulse Rate 98 H 98 H Pulse Rate [ From Monitor] Respiratory 20 20 Rate Blood Pressure 108/56 108/56 O2 Sat by Pulse 92 96 Oximetry O2 Sat by Pulse 96 Oximetry [ Assessment] 11/24/21 11/24/21 11/24/21 05:30 05:45 06:00 Temperature Pulse Rate 99 H 99 H 97 H Pulse Rate [ From Monitor] Respiratory 17 13 20 Rate Blood Pressure 108/59 108/59 103/53 O2 Sat by Pulse 92 96 98 Oximetry O2 Sat by Pulse Oximetry [ Assessment] 11/24/21 11/24/21 11/24/21 06:15 06:30 06:47 Temperature Pulse Rate 105 H 110 H 115 H Pulse Rate [ From Monitor] Respiratory 19 21 21 Rate Blood Pressure 103/53 119/70 119/70 O2 Sat by Pulse Oximetry O2 Sat by Pulse Oximetry [ Assessment] 11/24/21 11/24/21 11/24/21 07:00 07:15 07:30 Temperature Pulse Rate 94 H 113 H 94 H Pulse Rate [ From Monitor] Respiratory 20 19 20 Rate Blood Pressure 89/39 89/39 91/48 O2 Sat by Pulse 92 97 Oximetry O2 Sat by Pulse Oximetry [ Assessment] 11/24/21 11/24/21 11/24/21 07:34 07:45 08:00 Temperature 99.3 F Pulse Rate 95 H 100 H 97 H Pulse Rate [ 94 H From Monitor] Respiratory 20 19 Rate Blood Pressure 91/48 91/48 114/63 O2 Sat by Pulse 97 97 97 Oximetry O2 Sat by Pulse 97 Oximetry [ Assessment] 11/24/21 08:15 Temperature Pulse Rate 90 Pulse Rate [ From Monitor] Respiratory 20 Rate Blood Pressure 114/63 O2 Sat by Pulse 97 Oximetry O2 Sat by Pulse Oximetry [ Assessment] - Lab 11/24/21 04:30 11/24/21 04:30 Most recent lab results ABG pH 7.467 pH Units (7.350-7.450) H 11/18/21 04:35 ABG pCO2 37.1 mm Hg 11/18/21 04:35 ABG pO2 110.0 mm Hg (80.0-90.0) H 11/18/21 04:35 ABG HCO3 26.2 mmol/L (20.0-26.0) H 11/18/21 04:35 ABG O2 Saturation 98.1 % (95.0-99.0) 11/18/21 04:35 Calcium 8.5 mg/dL (8.4-10.2) 11/24/21 04:30 Phosphorus 4.80 mg/dL (2.5-4.5) H D 11/22/21 04:00 Magnesium 3.80 mg/dL (1.7-2.3) H 11/22/21 04:00 Urine Creatinine 189.3 mg/dL (0.1-20.0) H 11/12/21 02:20 Urine Sodium 30 mmol/L 11/12/21 02:20 Medications & Allergies - Medications Allergies/Adverse Reactions: Allergies No Known Allergies Allergy (Verified 11/11/21 20:58) Home Medications: Home Medications Medication Instructions Recorded Confirmed Last Taken Type No Known Home Medications [No 11/22/21 11/22/21 Unknown History Reported Home Medications] Active Medications: Generic Name Dose Route Start Last Admin Trade Name Freq PRN Reason Stop Dose Admin Acetaminophen 650 mg 11/11/21 22:40 Acetaminophen 325 Mg Tab PO Q4H PRN Pain MILD(1-3)/Fever >100.5/SOTO Albumin Human 12.5 gm 11/23/21 10:00 11/23/21 11:05 Albumin Human 25% (12.5 Gm/50 Ml) Inj IV 12.5 gm LONG PRN Administration Hypotension Albuterol 2.5 mg 11/11/21 22:40 Albuterol 2.5 Mg/3 Ml Nebu IH Q3HRT PRN Shortness Of Breath Aspirin 325 mg 11/17/21 10:00 11/23/21 09:30 Aspirin 325 Mg Tab FEEDTUBE 325 mg QDAY BAO Administration Atorvastatin Calcium 40 mg 11/17/21 22:00 11/23/21 21:25 Atorvastatin 40 Mg Tab FEEDTUBE 40 mg QHS BAO Administration Dextrose 50 ml 11/18/21 13:00 Dextrose 50% In Water (25gm) 50 Ml Syringe IV Q30MIN PRN Hypoglycemia Protocol Docusate Sodium 100 mg 11/17/21 10:00 11/23/21 21:25 Docusate Sodium 100 Mg/10 Ml Oral Liqd FEEDTUBE 100 mg BID BAO Administration Famotidine 20 mg 11/17/21 10:00 11/23/21 09:30 Famotidine 20 Mg Tab FEEDTUBE 20 mg QDAY BAO Administration Fentanyl 50 mcg 11/11/21 20:56 11/22/21 03:45 Fentanyl 100 Mcg/2 Ml Inj IV 50 mcg Q10MIN PRN Administration ANALGESIA Hydrophilic Ointment 1 applic 11/11/21 20:56 Lip Therapy Vaseline TP Q2HR PRN Dry Lips Fentanyl Citrate 2,000 mcg in 100 mls @ 13.608 mls/hr 11/11/21 21:00 11/24/21 06:51 Fentanyl Drip Premix IV 2 mcg/kg/hr TITR BAO 27.216 mls/hr Titration Protocol 1 MCG/KG/HR NORepinephrine/NS 8 MG-250 ML 8 mg in 250 mls @ 3.75 mls/hr 11/11/21 23:00 11/24/21 07:07 Norepinephrine/Ns 8 Mg-250 Ml (Double Conc) IV 4 mcg/min TITRATE BAO 7.5 mls/hr Titration Protocol 2 MCG/MIN Propofol 1,000 mg in 100 mls @ 8.166 mls/hr 11/13/21 09:00 11/24/21 01:41 Diprivan 10 Mg/Ml IV 5 mcg/kg/min TITR BAO 8.166 mls/hr Titration Protocol 5 MCG/KG/MIN Sodium Chloride 100 mls @ 999 mls/hr 11/21/21 08:11 Nacl 0.9% IV LONG PRN Hypotension Vasopressin 20 unit/ Sodium 101 mls @ 9.09 mls/hr 11/23/21 12:00 11/23/21 16:17 Chloride IV 0 units/min TITR BAO 0 mls/hr Titration Protocol 0.03 UNITS/MIN Sodium Chloride 1,000 mls @ 5 mls/hr 11/23/21 13:00 11/23/21 17:26 Nacl 0.9% 1000 Ml IV 0 mls/hr DIRECT BAO Infusion Insulin Human Lispro 0 unit 11/12/21 00:00 11/24/21 06:16 Insulin Lispro 100 Unit/Ml SUB-Q Not Given Q6HR BAO Protocol Lorazepam 2 mg 11/21/21 11:00 Lorazepam 2 Mg/Ml Vial IV Q4H PRN Agitation Multi-Ingred Cream/Lotion/Oil/Oint 1 applic 11/11/21 20:56 Mineral Oil/Petrolatum, White Ophth Oint 3.5 Gm OU Q4HR PRN Dry Eye(s) Ondansetron HCl 4 mg 11/11/21 22:40 Ondansetron 4 Mg/2 Ml Inj IV Q8H PRN Nausea And Vomiting Polyethylene Glycol 17 gm 11/22/21 10:00 11/23/21 09:30 Polyethylene Glycol 3350 17 Gm Powder PO 17 gm QDAY BAO Administration Senna 8.6 mg 11/17/21 10:00 11/23/21 21:25 Sennosides 8.6 Mg Tab FEEDTUBE 8.6 mg Q12H BAO Administration Sodium Chloride 10 ml 11/12/21 10:00 11/23/21 21:25 Sodium Chloride 0.9% 10 Ml Flush Syringe IV 10 ml BID BAO Administration Sodium Chloride 10 ml 11/11/21 22:40 Sodium Chloride 0.9% 10 Ml Flush Syringe IV PRN PRN LINE FLUSH
[2021-11-24] MEDS: SENNOSIDES 8.6 MG TAB FEEDTUBE SCH ×2 (09:35→22:29)
[2021-11-24] MEDS: FAMOTIDINE 20 MG TAB FEEDTUBE SCH (09:35)
[2021-11-24] MEDS: POLYETHYLENE GLYCOL 3350 17 GM POWDER PO SCH (09:35)
[2021-11-24] MEDS: ASPIRIN 325 MG TAB FEEDTUBE SCH (09:35)
[2021-11-24] MEDS: DOCUSATE SODIUM 100 MG/10 ML ORAL LIQD FEEDTUBE SCH ×2 (09:35→22:29)
[2021-11-24] MEDS: HALOPERIDOL LACTATE 5 MG/1 ML INJ IV SCH ×3 (12:40→23:49)
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
--- NOTE | 2021-11-24 13:24 | Progress Note ---
Assessment and Plan 56 y/o morbidly obese male with acute respiratory failure, requiring intubation and now in acute renal failure and in need of HD 11/24/21: Start scheduled haldol and see if we can wean sedation of. Hold on HD today. LTACH. 11/23/21: Successful trach and peg on yesterday. HD today, post HD start weaning trials. Will need LTACH. Will ask renal about Permcath placement 11/22/21: Follow up post op. Will need LTACH. HD per renal, need to ask them if he will need permacath as well. 11/21/21: Reviewed Gen Surg note. Will reach out to them for further discussion. Continue aggressive volume removal. Wean Pressors as tolerated. 11/18/21: Await Gen Surg comments as they were checking on OR supplies. If not able to, will start working on transfer as patient will need trach given current clinical state. HD per renal. Wean pressors as tolerated. Guarded to poor prognosis. 11/17/21: Follow up Gen Surge eval, they are checking to see the materials they have in OR. Reviewed neck ultrasound, per their read trachea is only about an 1inch away from the skin. Shocking given his neck size but given the difficulty in intubation and his entrance being anterior, this makes sense. Will defer to surgery call but have no problem with calling for transfer as well. Wean Pressors as tolerated. HD per renal. Continue sedation for RASS of 0. Guarded to poor prognosis. 11/16/21: Given patient body habitus, difficult airway and likely no improvement in current clinical state, will need trach. However given his neck size, I wou ld suggest this be done by ENT as I am not even sure that the bovona XLT is long enough. Ok to consult surgery here but I suggest seeking transfer to a tertiary care facility with ENT to attempt this. Also suggest obtaining neck CT to further evaluate total neck anatomy that way if we need to send this over prior to acceptance we can. Guarded prognosis but mental status is intact. HD per renal. 11/15/21: stop sedation. Attempt PSV. Bipap PRN and QHS. Hopeful extubation today. HD per renal. 11/14/21: Wean PEEP again today and attempt PSV trial. If passes will attempt extubation. HD per renal 11/13/21: HD per renal. No PSV trials today. Wean PEEP after HD. Guarded prognosis. 1. Obtain ABG 2. Place Iglesias catheter 3. Wean Pressors for maps greater than 65 4. Insulin, D50 for Hyperkalemia, and HD per renal 5. Stopped scheduled duonebs 6. Stopped abx 7. Obtain BNP with morning labs 8. Guarded prognosis. CCT 31 minutes. Subjective Date of service: 11/24/21 Principal diagnosis: Acute respiratory failure, Interval history: Hd had to be stopped yesterday secondary to hypotension. Gave steroids but no improvement. Remains on low dose levophed. Still on Fent and Diprovan. Concerns about delirium overnight. Objective Vital Signs - 12hr 11/24/21 11/24/21 11/24/21 01:30 01:45 02:00 Temperature Pulse Rate 96 H 96 H 96 H Pulse Rate [ From Monitor] Respiratory 20 19 17 Rate Blood Pressure 96/50 96/50 94/56 O2 Sat by Pulse 94 98 91 Oximetry O2 Sat by Pulse Oximetry [ Assessment] 11/24/21 11/24/21 11/24/21 02:15 02:30 02:45 Temperature Pulse Rate 93 H 95 H 90 Pulse Rate [ From Monitor] Respiratory 20 20 20 Rate Blood Pressure 94/56 98/54 98/54 O2 Sat by Pulse 97 95 99 Oximetry O2 Sat by Pulse Oximetry [ Assessment] 11/24/21 11/24/21 11/24/21 03:00 03:15 03:30 Temperature Pulse Rate 92 H 89 88 Pulse Rate [ From Monitor] Respiratory 20 20 20 Rate Blood Pressure 87/51 87/51 97/50 O2 Sat by Pulse 98 97 96 Oximetry O2 Sat by Pulse Oximetry [ Assessment] 11/24/21 11/24/21 11/24/21 03:45 04:00 04:15 Temperature 98.5 F Pulse Rate 90 93 H 96 H Pulse Rate [ From Monitor] Respiratory 19 17 16 Rate Blood Pressure 97/50 101/59 101/59 O2 Sat by Pulse 97 98 97 Oximetry O2 Sat by Pulse Oximetry [ Assessment] 11/24/21 11/24/21 11/24/21 04:31 04:34 04:45 Temperature Pulse Rate 100 H 107 H 100 H Pulse Rate [ From Monitor] Respiratory 18 16 Rate Blood Pressure 101/59 108/62 108/62 O2 Sat by Pulse 93 95 100 Oximetry O2 Sat by Pulse Oximetry [ Assessment] 11/24/21 11/24/21 11/24/21 04:47 05:00 05:15 Temperature Pulse Rate 98 H 98 H Pulse Rate [ From Monitor] Respiratory 20 20 Rate Blood Pressure 108/56 108/56 O2 Sat by Pulse 92 96 Oximetry O2 Sat by Pulse 96 Oximetry [ Assessment] 11/24/21 11/24/21 11/24/21 05:30 05:45 06:00 Temperature Pulse Rate 99 H 99 H 97 H Pulse Rate [ From Monitor] Respiratory 17 13 20 Rate Blood Pressure 108/59 108/59 103/53 O2 Sat by Pulse 92 96 98 Oximetry O2 Sat by Pulse Oximetry [ Assessment] 11/24/21 11/24/21 11/24/21 06:15 06:30 06:47 Temperature Pulse Rate 105 H 110 H 115 H Pulse Rate [ From Monitor] Respiratory 19 21 21 Rate Blood Pressure 103/53 119/70 119/70 O2 Sat by Pulse Oximetry O2 Sat by Pulse Oximetry [ Assessment] 11/24/21 11/24/21 11/24/21 07:00 07:15 07:30 Temperature Pulse Rate 94 H 113 H 94 H Pulse Rate [ From Monitor] Respiratory 20 19 20 Rate Blood Pressure 89/39 89/39 91/48 O2 Sat by Pulse 92 97 Oximetry O2 Sat by Pulse Oximetry [ Assessment] 11/24/21 11/24/21 11/24/21 07:34 07:45 08:00 Temperature 99.3 F Pulse Rate 95 H 100 H 97 H Pulse Rate [ 94 H From Monitor] Respiratory 20 19 Rate Blood Pressure 91/48 91/48 114/63 O2 Sat by Pulse 97 97 97 Oximetry O2 Sat by Pulse 97 Oximetry [ Assessment] 11/24/21 11/24/21 11/24/21 08:15 08:30 08:45 Temperature Pulse Rate 90 94 H 93 H Pulse Rate [ From Monitor] Respiratory 20 20 20 Rate Blood Pressure 114/63 102/52 102/52 O2 Sat by Pulse 97 97 97 Oximetry O2 Sat by Pulse Oximetry [ Assessment] 11/24/21 11/24/21 11/24/21 09:00 09:15 09:30 Temperature Pulse Rate 87 85 84 Pulse Rate [ From Monitor] Respiratory 20 21 21 Rate Blood Pressure 94/46 94/46 104/60 O2 Sat by Pulse 96 95 95 Oximetry O2 Sat by Pulse Oximetry [ Assessment] 11/24/21 11/24/21 11/24/21 09:45 10:00 10:15 Temperature Pulse Rate 84 84 86 Pulse Rate [ From Monitor] Respiratory 19 20 20 Rate Blood Pressure 104/60 111/64 111/64 O2 Sat by Pulse 99 97 99 Oximetry O2 Sat by Pulse Oximetry [ Assessment] 11/24/21 11/24/21 11/24/21 10:30 10:45 11:00 Temperature Pulse Rate 84 96 H 89 Pulse Rate [ From Monitor] Respiratory 20 20 20 Rate Blood Pressure 104/50 104/50 113/68 O2 Sat by Pulse 98 99 100 Oximetry O2 Sat by Pulse Oximetry [ Assessment] 11/24/21 11/24/21 11/24/21 11:15 11:30 11:37 Temperature Pulse Rate 85 95 H 94 H Pulse Rate [ From Monitor] Respiratory 20 20 Rate Blood Pressure 113/68 115/64 115/64 O2 Sat by Pulse 98 94 98 Oximetry O2 Sat by Pulse Oximetry [ Assessment] 11/24/21 11/24/21 11/24/21 11:45 12:00 12:15 Temperature 98.9 F Pulse Rate 94 H 97 H 96 H Pulse Rate [ 96 H From Monitor] Respiratory 20 20 20 Rate Blood Pressure 115/64 95/53 95/53 O2 Sat by Pulse 98 97 98 Oximetry O2 Sat by Pulse Oximetry [ Assessment] 11/24/21 11/24/21 11/24/21 12:30 12:45 13:00 Temperature Pulse Rate 95 H 89 96 H Pulse Rate [ From Monitor] Respiratory 17 20 20 Rate Blood Pressure 97/59 97/59 97/47 O2 Sat by Pulse 96 97 92 Oximetry O2 Sat by Pulse Oximetry [ Assessment] Constitutional: comatose Eyes: non-icteric ENT: other (orally intubated and sedated) Neck: supple, other (large in circumference) Effort: normal Ascultation: Bilateral: diminished breath sounds Cardiovascular: regular rate and rhythm Gastrointestinal: normoactive bowel sounds Extremities: edema, anasarca Neurologic: unable to assess CBC and BMP: 11/24/21 04:30 11/24/21 04:30 ABG, PT/INR, D-dimer: ABG ABG pH 7.467 pH Units (7.350-7.450) H 11/18/21 04:35 ABG pCO2 37.1 mm Hg 11/18/21 04:35 ABG pO2 110.0 mm Hg (80.0-90.0) H 11/18/21 04:35 ABG O2 Saturation 98.1 % (95.0-99.0) 11/18/21 04:35 PT/INR, D-dimer PT 14.4 Sec. (12.2-14.9) 11/22/21 04:00 INR 1.01 (0.87-1.13) 11/22/21 04:00 Abnormal lab findings: Abnormal Labs 11/11/21 11/11/21 11/11/21 19:49 19:49 23:29 WBC 11.5 H RBC Hgb 10.1 L Hct 34.8 L MCH 27 L MCHC 29 L RDW 20.1 H Lymph % (Auto) 10.0 L Cole % (Auto) 8.8 H Lymph # (Auto) 1.1 L Cole # (Auto) 1.0 H Seg Neutrophils % 79.8 H Seg Neuts % (Manual) Lymphocytes % (Manual) Seg Neutrophils # 9.2 H Seg Neutrophils # Man Lymphocytes # (Manual) ABG pH ABG pO2 ABG HCO3 ABG O2 Saturation ABG Base Excess ABG Hemoglobin Sodium Potassium 7.6 H* Chloride 107.8 H Carbon Dioxide 13 L BUN 107 H Creatinine 13.8 H Glucose POC Glucose Calcium 7.5 L Phosphorus Magnesium Iron TIBC Total Creatine Kinase 268 H Troponin T 0.324 H* NT-Pro-B Natriuret Pep Total Protein 9.1 H Albumin 3.0 L PTH Intact Urine WBC (Auto) Urine Creatinine 11/11/21 11/11/21 11/12/21 23:29 23:29 02:20 WBC RBC Hgb Hct MCH MCHC RDW Lymph % (Auto) Cole % (Auto) Lymph # (Auto) Cole # (Auto) Seg Neutrophils % Seg Neuts % (Manual) Lymphocytes % (Manual) Seg Neutrophils # Seg Neutrophils # Man Lymphocytes # (Manual) ABG pH ABG pO2 ABG HCO3 ABG O2 Saturation ABG Base Excess ABG Hemoglobin Sodium Potassium Chloride Carbon Dioxide BUN Creatinine Glucose POC Glucose Calcium Phosphorus Magnesium Iron 24 L TIBC 157 L Total Creatine Kinase Troponin T NT-Pro-B Natriuret Pep Total Protein Albumin PTH Intact 1174 H Urine WBC (Auto) Urine Creatinine 189.3 H 11/12/21 11/12/21 11/12/21 02:20 02:28 06:55 WBC 20.5 H RBC 3.54 L Hgb 9.4 L Hct 32.3 L MCH 27 L MCHC 29 L RDW 20.0 H Lymph % (Auto) Cole % (Auto) Lymph # (Auto) Cole # (Auto) Seg Neutrophils % Seg Neuts % (Manual) 89.0 H Lymphocytes % (Manual) 0 L Seg Neutrophils # Seg Neutrophils # Man 18.2 H Lymphocytes # (Manual) 0.0 L ABG pH 7.172 L* ABG pO2 100.6 H ABG HCO3 17.4 L ABG O2 Saturation ABG Base Excess -10.6 L ABG Hemoglobin 9.4 L Sodium Potassium Chloride Carbon Dioxide BUN Creatinine Glucose POC Glucose Calcium Phosphorus Magnesium Iron TIBC Total Creatine Kinase Troponin T NT-Pro-B Natriuret Pep Total Protein Albumin PTH Intact Urine WBC (Auto) 12.0 H Urine Creatinine 11/12/21 11/12/21 11/12/21 06:55 09:10 12:01 WBC RBC Hgb Hct MCH MCHC RDW Lymph % (Auto) Cole % (Auto) Lymph # (Auto) Cole # (Auto) Seg Neutrophils % Seg Neuts % (Manual) Lymphocytes % (Manual) Seg Neutrophils # Seg Neutrophils # Man Lymphocytes # (Manual) ABG pH 7.296 L ABG pO2 237.3 H ABG HCO3 ABG O2 Saturation 99.3 H ABG Base Excess -6.0 L ABG Hemoglobin 8.8 L Sodium Potassium 5.5 H D Chloride 107.1 H Carbon Dioxide 19 L BUN 78 H Creatinine 9.4 H Glucose 119 H POC Glucose 106 H Calcium 8.1 L Phosphorus Magnesium Iron TIBC Total Creatine Kinase Troponin T NT-Pro-B Natriuret Pep Total Protein Albumin PTH Intact Urine WBC (Auto) Urine Creatinine 11/12/21 11/12/21 11/12/21 16:46 16:46 22:30 WBC RBC Hgb Hct MCH MCHC RDW Lymph % (Auto) Cole % (Auto) Lymph # (Auto) Cole # (Auto) Seg Neutrophils % Seg Neuts % (Manual) Lymphocytes % (Manual) Seg Neutrophils # Seg Neutrophils # Man Lymphocytes # (Manual) ABG pH ABG pO2 ABG HCO3 ABG O2 Saturation ABG Base Excess ABG Hemoglobin Sodium 146 H Potassium Chloride 108.2 H Carbon Dioxide 21 L BUN 66 H Creatinine 9.8 H Glucose 125 H POC Glucose Calcium 7.8 L Phosphorus Magnesium Iron TIBC Total Creatine Kinase Troponin T 0.319 H* 0.313 H* NT-Pro-B Natriuret Pep Total Protein Albumin PTH Intact Urine WBC (Auto) Urine Creatinine 11/12/21 11/12/21 11/13/21 23:18 Unknown 04:00 WBC 17.2 H RBC 3.09 L Hgb 8.4 L Hct 27.5 L MCH 27 L MCHC 30 L RDW 19.6 H Lymph % (Auto) Cole % (Auto) Lymph # (Auto) Cole # (Auto) Seg Neutrophils % Seg Neuts % (Manual) Lymphocytes % (Manual) Seg Neutrophils # Seg Neutrophils # Man Lymphocytes # (Manual) ABG pH ABG pO2 ABG HCO3 ABG O2 Saturation ABG Base Excess ABG Hemoglobin Sodium Potassium Chloride Carbon Dioxide BUN Creatinine Glucose POC Glucose 120 H Calcium Phosphorus Magnesium Iron TIBC Total Creatine Kinase Troponin T NT-Pro-B Natriuret Pep 3674 H Total Protein Albumin PTH Intact Urine WBC (Auto) Urine Creatinine 11/13/21 11/13/21 11/13/21 04:00 04:00 05:23 WBC RBC Hgb Hct MCH MCHC RDW Lymph % (Auto) Cole % (Auto) Lymph # (Auto) Cole # (Auto) Seg Neutrophils % Seg Neuts % (Manual) Lymphocytes % (Manual) Seg Neutrophils # Seg Neutrophils # Man Lymphocytes # (Manual) ABG pH 7.274 L ABG pO2 93.2 H ABG HCO3 ABG O2 Saturation ABG Base Excess -3.9 L ABG Hemoglobin 8.2 L Sodium Potassium Chloride Carbon Dioxide 21 L BUN 71 H Creatinine 9.9 H Glucose 128 H POC Glucose 117 H Calcium 7.7 L Phosphorus 5.10 H Magnesium 1.60 L Iron TIBC Total Creatine Kinase Troponin T NT-Pro-B Natriuret Pep Total Protein Albumin PTH Intact Urine WBC (Auto) Urine Creatinine 11/13/21 11/13/21 11/14/21 16:20 23:31 04:10 WBC RBC Hgb Hct MCH MCHC RDW Lymph % (Auto) Cole % (Auto) Lymph # (Auto) Cole # (Auto) Seg Neutrophils % Seg Neuts % (Manual) Lymphocytes % (Manual) Seg Neutrophils # Seg Neutrophils # Man Lymphocytes # (Manual) ABG pH ABG pO2 107.1 H ABG HCO3 ABG O2 Saturation ABG Base Excess ABG Hemoglobin 6.5 L Sodium Potassium Chloride Carbon Dioxide BUN Creatinine Glucose POC Glucose 125 H 123 H Calcium Phosphorus Magnesium Iron TIBC Total Creatine Kinase Troponin T NT-Pro-B Natriuret Pep Total Protein Albumin PTH Intact Urine WBC (Auto) Urine Creatinine 11/14/21 11/14/21 11/14/21 06:30 06:30 15:00 WBC 11.2 H RBC 3.03 L Hgb 8.1 L Hct 26.6 L MCH 27 L MCHC 30 L RDW 19.3 H Lymph % (Auto) Cole % (Auto) Lymph # (Auto) Cole # (Auto) Seg Neutrophils % Seg Neuts % (Manual) Lymphocytes % (Manual) Seg Neutrophils # Seg Neutrophils # Man Lymphocytes # (Manual) ABG pH ABG pO2 ABG HCO3 ABG O2 Saturation ABG Base Excess ABG Hemoglobin Sodium Potassium 3.0 L D 3.4 L Chloride Carbon Dioxide BUN 41 H Creatinine 7.0 H Glucose 107 H POC Glucose Calcium 7.5 L Phosphorus Magnesium 1.60 L Iron TIBC Total Creatine Kinase Troponin T NT-Pro-B Natriuret Pep Total Protein Albumin PTH Intact Urine WBC (Auto) Urine Creatinine 11/14/21 11/15/21 11/15/21 17:24 04:00 04:00 WBC 11.3 H RBC 3.00 L Hgb 8.1 L Hct 26.3 L MCH 27 L MCHC 31 L RDW 19.2 H Lymph % (Auto) Cole % (Auto) Lymph # (Auto) Cole # (Auto) Seg Neutrophils % Seg Neuts % (Manual) Lymphocytes % (Manual) Seg Neutrophils # Seg Neutrophils # Man Lymphocytes # (Manual) ABG pH ABG pO2 ABG HCO3 ABG O2 Saturation ABG Base Excess ABG Hemoglobin Sodium Potassium 3.4 L Chloride Carbon Dioxide BUN 32 H Creatinine 5.9 H Glucose 117 H POC Glucose 124 H Calcium 8.3 L Phosphorus Magnesium Iron TIBC Total Creatine Kinase Troponin T NT-Pro-B Natriuret Pep Total Protein Albumin PTH Intact Urine WBC (Auto) Urine Creatinine 11/15/21 11/15/21 11/16/21 13:58 16:20 04:00 WBC 13.2 H RBC 2.88 L Hgb 7.8 L Hct 25.2 L MCH 27 L MCHC 31 L RDW 19.1 H Lymph % (Auto) Cole % (Auto) Lymph # (Auto) Cole # (Auto) Seg Neutrophils % Seg Neuts % (Manual) Lymphocytes % (Manual) Seg Neutrophils # Seg Neutrophils # Man Lymphocytes # (Manual) ABG pH 7.335 L ABG pO2 254.0 H ABG HCO3 26.2 H ABG O2 Saturation 99.4 H ABG Base Excess ABG Hemoglobin 8.5 L Sodium Potassium Chloride Carbon Dioxide BUN Creatinine Glucose POC Glucose 132 H Calcium Phosphorus Magnesium Iron TIBC Total Creatine Kinase Troponin T NT-Pro-B Natriuret Pep Total Protein Albumin PTH Intact Urine WBC (Auto) Urine Creatinine 11/16/21 11/16/21 11/16/21 04:00 04:05 11:06 WBC RBC Hgb Hct MCH MCHC RDW Lymph % (Auto) Cole % (Auto) Lymph # (Auto) Cole # (Auto) Seg Neutrophils % Seg Neuts % (Manual) Lymphocytes % (Manual) Seg Neutrophils # Seg Neutrophils # Man Lymphocytes # (Manual) ABG pH ABG pO2 115.6 H ABG HCO3 ABG O2 Saturation ABG Base Excess ABG Hemoglobin 8.1 L Sodium Potassium Chloride Carbon Dioxide BUN 44 H Creatinine 7.7 H Glucose 104 H POC Glucose 106 H Calcium 7.9 L Phosphorus Magnesium Iron TIBC Total Creatine Kinase Troponin T NT-Pro-B Natriuret Pep Total Protein Albumin PTH Intact Urine WBC (Auto) Urine Creatinine 11/16/21 11/16/21 11/17/21 18:05 23:51 04:15 WBC 11.8 H RBC 3.02 L Hgb 8.1 L Hct 26.9 L MCH 27 L MCHC 30 L RDW 18.9 H Lymph % (Auto) Cole % (Auto) Lymph # (Auto) Cole # (Auto) Seg Neutrophils % Seg Neuts % (Manual) Lymphocytes % (Manual) Seg Neutrophils # Seg Neutrophils # Man Lymphocytes # (Manual) ABG pH ABG pO2 ABG HCO3 ABG O2 Saturation ABG Base Excess ABG Hemoglobin Sodium Potassium Chloride Carbon Dioxide BUN Creatinine Glucose POC Glucose 109 H 118 H Calcium Phosphorus Magnesium Iron TIBC Total Creatine Kinase Troponin T NT-Pro-B Natriuret Pep Total Protein Albumin PTH Intact Urine WBC (Auto) Urine Creatinine 11/17/21 11/17/21 11/17/21 04:15 04:25 11:25 WBC RBC Hgb Hct MCH MCHC RDW Lymph % (Auto) Cole % (Auto) Lymph # (Auto) Cole # (Auto) Seg Neutrophils % Seg Neuts % (Manual) Lymphocytes % (Manual) Seg Neutrophils # Seg Neutrophils # Man Lymphocytes # (Manual) ABG pH ABG pO2 153.8 H ABG HCO3 ABG O2 Saturation ABG Base Excess ABG Hemoglobin 8.3 L Sodium Potassium Chloride Carbon Dioxide BUN 33 H Creatinine 6.2 H Glucose 118 H POC Glucose 108 H Calcium Phosphorus Magnesium Iron TIBC Total Creatine Kinase Troponin T NT-Pro-B Natriuret Pep Total Protein Albumin PTH Intact Urine WBC (Auto) Urine Creatinine 11/18/21 11/18/21 11/18/21 04:00 04:00 04:35 WBC RBC 2.88 L Hgb 7.8 L Hct 25.3 L MCH 27 L MCHC 31 L RDW 18.7 H Lymph % (Auto) Cole % (Auto) Lymph # (Auto) Cole # (Auto) Seg Neutrophils % Seg Neuts % (Manual) Lymphocytes % (Manual) Seg Neutrophils # Seg Neutrophils # Man Lymphocytes # (Manual) ABG pH 7.467 H ABG pO2 110.0 H ABG HCO3 26.2 H ABG O2 Saturation ABG Base Excess ABG Hemoglobin 8.1 L Sodium Potassium Chloride Carbon Dioxide BUN 28 H Creatinine 5.5 H Glucose POC Glucose Calcium Phosphorus Magnesium Iron TIBC Total Creatine Kinase Troponin T NT-Pro-B Natriuret Pep Total Protein Albumin PTH Intact Urine WBC (Auto) Urine Creatinine 11/18/21 11/19/21 11/19/21 11:50 04:00 11:30 WBC RBC Hgb Hct MCH MCHC RDW Lymph % (Auto) Cole % (Auto) Lymph # (Auto) Cole # (Auto) Seg Neutrophils % Seg Neuts % (Manual) Lymphocytes % (Manual) Seg Neutrophils # Seg Neutrophils # Man Lymphocytes # (Manual) ABG pH ABG pO2 ABG HCO3 ABG O2 Saturation ABG Base Excess ABG Hemoglobin Sodium Potassium Chloride Carbon Dioxide BUN 26 H Creatinine 4.7 H Glucose 110 H POC Glucose 131 H 106 H Calcium Phosphorus Magnesium Iron TIBC Total Creatine Kinase Troponin T NT-Pro-B Natriuret Pep Total Protein Albumin PTH Intact Urine WBC (Auto) Urine Creatinine 11/19/21 11/20/21 11/20/21 17:09 00:14 04:00 WBC RBC Hgb Hct MCH MCHC RDW Lymph % (Auto) Cole % (Auto) Lymph # (Auto) Cole # (Auto) Seg Neutrophils % Seg Neuts % (Manual) Lymphocytes % (Manual) Seg Neutrophils # Seg Neutrophils # Man Lymphocytes # (Manual) ABG pH ABG pO2 ABG HCO3 ABG O2 Saturation ABG Base Excess ABG Hemoglobin Sodium 134 L Potassium Chloride 94.4 L Carbon Dioxide BUN 25 H Creatinine 4.6 H Glucose 117 H POC Glucose 129 H 115 H Calcium Phosphorus Magnesium Iron TIBC Total Creatine Kinase Troponin T NT-Pro-B Natriuret Pep Total Protein Albumin PTH Intact Urine WBC (Auto) Urine Creatinine 11/20/21 11/21/21 11/21/21 11:36 04:00 04:00 WBC 12.0 H RBC 2.85 L Hgb 7.8 L Hct 24.8 L MCH MCHC RDW 18.5 H Lymph % (Auto) Cole % (Auto) Lymph # (Auto) Cole # (Auto) Seg Neutrophils % Seg Neuts % (Manual) Lymphocytes % (Manual) Seg Neutrophils # Seg Neutrophils # Man Lymphocytes # (Manual) ABG pH ABG pO2 ABG HCO3 ABG O2 Saturation ABG Base Excess ABG Hemoglobin Sodium 133 L Potassium Chloride 95.3 L Carbon Dioxide BUN 40 H Creatinine 6.2 H Glucose 103 H POC Glucose 117 H Calcium Phosphorus Magnesium Iron TIBC Total Creatine Kinase Troponin T NT-Pro-B Natriuret Pep Total Protein Albumin PTH Intact Urine WBC (Auto) Urine Creatinine 11/21/21 11/21/21 11/22/21 11:38 18:13 00:41 WBC RBC Hgb Hct MCH MCHC RDW Lymph % (Auto) Cole % (Auto) Lymph # (Auto) Cole # (Auto) Seg Neutrophils % Seg Neuts % (Manual) Lymphocytes % (Manual) Seg Neutrophils # Seg Neutrophils # Man Lymphocytes # (Manual) ABG pH ABG pO2 ABG HCO3 ABG O2 Saturation ABG Base Excess ABG Hemoglobin Sodium Potassium Chloride Carbon Dioxide BUN Creatinine Glucose POC Glucose 127 H 112 H 106 H Calcium Phosphorus Magnesium Iron TIBC Total Creatine Kinase Troponin T NT-Pro-B Natriuret Pep Total Protein Albumin PTH Intact Urine WBC (Auto) Urine Creatinine 11/22/21 11/22/21 11/22/21 04:00 04:00 08:30 WBC 16.1 H 14.8 H RBC 3.01 L 2.95 L Hgb 8.1 L 7.8 L Hct 26.6 L 26.3 L MCH 27 L 27 L MCHC 31 L 30 L RDW 18.3 H 18.9 H Lymph % (Auto) 5.7 L Cole % (Auto) 13.0 H Lymph # (Auto) 0.8 L Cole # (Auto) 1.9 H Seg Neutrophils % 79.5 H Seg Neuts % (Manual) Lymphocytes % (Manual) Seg Neutrophils # 11.8 H Seg Neutrophils # Man Lymphocytes # (Manual) ABG pH ABG pO2 ABG HCO3 ABG O2 Saturation ABG Base Excess ABG Hemoglobin Sodium 136 L Potassium Chloride 97.6 L Carbon Dioxide BUN 35 H Creatinine 5.8 H Glucose 120 H POC Glucose Calcium Phosphorus 4.80 H D Magnesium 3.80 H Iron TIBC Total Creatine Kinase Troponin T NT-Pro-B Natriuret Pep Total Protein Albumin PTH Intact Urine WBC (Auto) Urine Creatinine 11/22/21 11/22/21 11/23/21 08:30 16:39 04:00 WBC 13.7 H RBC 2.93 L Hgb 7.8 L Hct 25.7 L MCH 27 L MCHC 30 L RDW 18.5 H Lymph % (Auto) Cole % (Auto) Lymph # (Auto) Cole # (Auto) Seg Neutrophils % Seg Neuts % (Manual) Lymphocytes % (Manual) Seg Neutrophils # Seg Neutrophils # Man Lymphocytes # (Manual) ABG pH ABG pO2 ABG HCO3 ABG O2 Saturation ABG Base Excess ABG Hemoglobin Sodium Potassium 5.3 H Chloride Carbon Dioxide BUN 36 H Creatinine 6.1 H Glucose 117 H POC Glucose 119 H Calcium Phosphorus Magnesium Iron TIBC Total Creatine Kinase 534 H Troponin T 0.294 H* NT-Pro-B Natriuret Pep Total Protein Albumin PTH Intact Urine WBC (Auto) Urine Creatinine 11/23/21 11/23/21 11/23/21 04:00 11:56 17:20 WBC RBC Hgb Hct MCH MCHC RDW Lymph % (Auto) Cole % (Auto) Lymph # (Auto) Cole # (Auto) Seg Neutrophils % Seg Neuts % (Manual) Lymphocytes % (Manual) Seg Neutrophils # Seg Neutrophils # Man Lymphocytes # (Manual) ABG pH ABG pO2 ABG HCO3 ABG O2 Saturation ABG Base Excess ABG Hemoglobin Sodium Potassium Chloride Carbon Dioxide BUN 27 H Creatinine 5.1 H Glucose 106 H POC Glucose 118 H 110 H Calcium Phosphorus Magnesium Iron TIBC Total Creatine Kinase Troponin T NT-Pro-B Natriuret Pep Total Protein Albumin PTH Intact Urine WBC (Auto) Urine Creatinine 11/24/21 11/24/21 11/24/21 04:30 04:30 05:30 WBC 14.0 H RBC 2.77 L Hgb 7.4 L Hct 24.4 L MCH 27 L MCHC 30 L RDW 18.5 H Lymph % (Auto) Cole % (Auto) Lymph # (Auto) Cole # (Auto) Seg Neutrophils % Seg Neuts % (Manual) Lymphocytes % (Manual) Seg Neutrophils # Seg Neutrophils # Man Lymphocytes # (Manual) ABG pH ABG pO2 ABG HCO3 ABG O2 Saturation ABG Base Excess ABG Hemoglobin Sodium Potassium Chloride 97.5 L Carbon Dioxide BUN 35 H Creatinine 6.1 H Glucose POC Glucose 107 H Calcium Phosphorus Magnesium Iron TIBC Total Creatine Kinase Troponin T NT-Pro-B Natriuret Pep Total Protein Albumin PTH Intact Urine WBC (Auto) Urine Creatinine 11/24/21 11:21 WBC RBC Hgb Hct MCH MCHC RDW Lymph % (Auto) Cole % (Auto) Lymph # (Auto) Cole # (Auto) Seg Neutrophils % Seg Neuts % (Manual) Lymphocytes % (Manual) Seg Neutrophils # Seg Neutrophils # Man Lymphocytes # (Manual) ABG pH ABG pO2 ABG HCO3 ABG O2 Saturation ABG Base Excess ABG Hemoglobin Sodium Potassium Chloride Carbon Dioxide BUN Creatinine Glucose POC Glucose 107 H Calcium Phosphorus Magnesium Iron TIBC Total Creatine Kinase Troponin T NT-Pro-B Natriuret Pep Total Protein Albumin PTH Intact Urine WBC (Auto) Urine Creatinine Allied health notes reviewed: nursing
[2021-11-25] MEDS: INSULIN LISPRO 100 UNIT/ML SUB-Q SCH ×4 (00:15→17:49)
[2021-11-25] MEDS: HALOPERIDOL LACTATE 5 MG/1 ML INJ IV SCH ×3 (05:48→18:34)
[2021-11-25] MEDS: NORepinephrine/NS 8 MG-250 ML 8 MG/250 ML INFUS..BTL IV SCH (07:05)
--- NOTE | 2021-11-25 09:40 | Progress Note ---
Assessment and Plan Acute respiratory failure Pneumonia Hypoxia KD (acute kidney injury) on top of CKD Hyperkalemia Diabetes Elevated troponin Hypertension Obesity Acidosis Plan -HD today for clearance and volume removal, vasopressor support to be added by ICU team if needed during HD -will assess HD needs daily -Renal ultrasound- Left kidney no visualized. No hydronephrosis to right kidney -Renally dose all medications -Obtain daily weights -Monitor I/O's daily -Assess dialysis needs daily Subjective Date of service: 11/25/21 Principal diagnosis: Acute respiratory failure, Interval history: low BP this AM Objective - Vital Signs Vital signs: Vital Signs - 12hr 11/24/21 11/24/21 11/24/21 21:46 22:00 22:16 Temperature Pulse Rate 91 H 91 H 92 H Pulse Rate [ From Monitor] Respiratory 20 21 20 Rate Blood Pressure 119/57 105/64 105/64 O2 Sat by Pulse 96 95 97 Oximetry O2 Sat by Pulse Oximetry [ Assessment] 11/24/21 11/24/21 11/24/21 22:24 22:30 22:46 Temperature Pulse Rate 89 95 H 93 H Pulse Rate [ From Monitor] Respiratory 19 17 20 Rate Blood Pressure 105/64 115/73 115/73 O2 Sat by Pulse 98 97 98 Oximetry O2 Sat by Pulse Oximetry [ Assessment] 11/24/21 11/24/21 11/24/21 23:00 23:16 23:30 Temperature Pulse Rate 95 H 103 H 93 H Pulse Rate [ From Monitor] Respiratory 16 24 18 Rate Blood Pressure 125/77 125/77 107/32 O2 Sat by Pulse 96 97 98 Oximetry O2 Sat by Pulse Oximetry [ Assessment] 11/24/21 11/25/21 11/25/21 23:46 00:00 00:16 Temperature Pulse Rate 93 H 97 H 97 H Pulse Rate [ 95 H From Monitor] Respiratory 21 24 20 Rate Blood Pressure 107/32 107/32 118/61 O2 Sat by Pulse 98 99 94 Oximetry O2 Sat by Pulse 97 Oximetry [ Assessment] 11/25/21 11/25/21 11/25/21 00:30 00:46 01:00 Temperature Pulse Rate 98 H 97 H 96 H Pulse Rate [ From Monitor] Respiratory 20 20 19 Rate Blood Pressure 112/65 112/65 115/63 O2 Sat by Pulse 99 96 Oximetry O2 Sat by Pulse Oximetry [ Assessment] 0411/25/21 11/25/21 01:16 01:30 01:46 Temperature Pulse Rate 96 H 98 H 95 H Pulse Rate [ From Monitor] Respiratory 19 19 20 Rate Blood Pressure 115/63 122/53 122/53 O2 Sat by Pulse 95 95 97 Oximetry O2 Sat by Pulse Oximetry [ Assessment] 11/25/21 11/25/21 11/25/21 02:00 02:16 02:30 Temperature Pulse Rate 98 H 98 H 98 H Pulse Rate [ From Monitor] Respiratory 19 20 20 Rate Blood Pressure 110/62 110/62 104/57 O2 Sat by Pulse 94 97 94 Oximetry O2 Sat by Pulse Oximetry [ Assessment] 11/25/21 11/25/21 11/25/21 02:46 03:00 03:16 Temperature Pulse Rate 97 H 95 H 98 H Pulse Rate [ From Monitor] Respiratory 15 20 16 Rate Blood Pressure 104/57 104/57 98/48 O2 Sat by Pulse 98 97 97 Oximetry O2 Sat by Pulse Oximetry [ Assessment] 11/25/21 11/25/21 11/25/21 03:30 03:46 04:00 Temperature Pulse Rate 96 H 96 H 96 H Pulse Rate [ 90 From Monitor] Respiratory 21 20 20 Rate Blood Pressure 102/57 102/57 102/57 O2 Sat by Pulse 94 97 97 Oximetry O2 Sat by Pulse Oximetry [ Assessment] 11/25/21 11/25/21 11/25/21 04:16 04:30 04:46 Temperature Pulse Rate 96 H 96 H 98 H Pulse Rate [ From Monitor] Respiratory 20 20 17 Rate Blood Pressure 107/58 107/61 107/61 O2 Sat by Pulse 96 93 96 Oximetry O2 Sat by Pulse Oximetry [ Assessment] 11/25/21 11/25/21 11/25/21 05:00 05:16 05:30 Temperature Pulse Rate 100 H 97 H 104 H Pulse Rate [ From Monitor] Respiratory 21 20 22 Rate Blood Pressure 103/67 103/67 117/79 O2 Sat by Pulse 94 97 92 Oximetry O2 Sat by Pulse Oximetry [ Assessment] 11/25/21 11/25/21 11/25/21 05:46 06:00 06:16 Temperature Pulse Rate 105 H 94 H 91 H Pulse Rate [ From Monitor] Respiratory 19 20 20 Rate Blood Pressure 117/79 115/59 115/59 O2 Sat by Pulse 96 91 96 Oximetry O2 Sat by Pulse Oximetry [ Assessment] 11/25/21 11/25/21 11/25/21 06:30 06:46 07:00 Temperature Pulse Rate 92 H 94 H 97 H Pulse Rate [ From Monitor] Respiratory 20 20 20 Rate Blood Pressure 115/59 81/40 79/43 O2 Sat by Pulse 98 95 92 Oximetry O2 Sat by Pulse Oximetry [ Assessment] 11/25/21 11/25/21 11/25/21 07:15 07:21 07:30 Temperature 99.3 F Pulse Rate 95 H 86 Pulse Rate [ From Monitor] Respiratory 20 19 Rate Blood Pressure 80/36 85/40 O2 Sat by Pulse 94 100 Oximetry O2 Sat by Pulse Oximetry [ Assessment] 11/25/21 11/25/21 11/25/21 07:45 08:00 08:15 Temperature 99.3 F Pulse Rate 86 85 85 Pulse Rate [ 90 From Monitor] Respiratory 20 20 20 Rate Blood Pressure 114/66 113/60 112/62 O2 Sat by Pulse 98 96 94 Oximetry O2 Sat by Pulse Oximetry [ Assessment] 11/25/21 11/25/21 11/25/21 08:25 08:30 08:45 Temperature Pulse Rate 93 H 86 90 Pulse Rate [ From Monitor] Respiratory 20 20 Rate Blood Pressure 130/75 112/62 113/59 O2 Sat by Pulse 96 98 96 Oximetry O2 Sat by Pulse Oximetry [ Assessment] 11/25/21 11/25/21 09:00 09:15 Temperature Pulse Rate 85 85 Pulse Rate [ From Monitor] Respiratory 20 20 Rate Blood Pressure 113/59 94/49 O2 Sat by Pulse 97 96 Oximetry O2 Sat by Pulse Oximetry [ Assessment] - Lab 11/24/21 04:30 11/24/21 04:30 Most recent lab results ABG pH 7.467 pH Units (7.350-7.450) H 11/18/21 04:35 ABG pCO2 37.1 mm Hg 11/18/21 04:35 ABG pO2 110.0 mm Hg (80.0-90.0) H 11/18/21 04:35 ABG HCO3 26.2 mmol/L (20.0-26.0) H 11/18/21 04:35 ABG O2 Saturation 98.1 % (95.0-99.0) 11/18/21 04:35 Calcium 8.5 mg/dL (8.4-10.2) 11/24/21 04:30 Phosphorus 4.80 mg/dL (2.5-4.5) H D 11/22/21 04:00 Magnesium 3.80 mg/dL (1.7-2.3) H 11/22/21 04:00 Urine Creatinine 189.3 mg/dL (0.1-20.0) H 11/12/21 02:20 Urine Sodium 30 mmol/L 11/12/21 02:20 Medications & Allergies - Medications Allergies/Adverse Reactions: Allergies No Known Allergies Allergy (Verified 11/11/21 20:58) Home Medications: Home Medications Medication Instructions Recorded Confirmed Last Taken Type No Known Home Medications [No 11/22/21 11/22/21 Unknown History Reported Home Medications] Active Medications: Generic Name Dose Route Start Last Admin Trade Name Freq PRN Reason Stop Dose Admin Acetaminophen 650 mg 11/11/21 22:40 Acetaminophen 325 Mg Tab PO Q4H PRN Pain MILD(1-3)/Fever >100.5/SOTO Albumin Human 12.5 gm 11/23/21 10:00 11/23/21 11:05 Albumin Human 25% (12.5 Gm/50 Ml) Inj IV 12.5 gm LONG PRN Administration Hypotension Albuterol 2.5 mg 11/11/21 22:40 Albuterol 2.5 Mg/3 Ml Nebu IH Q3HRT PRN Shortness Of Breath Aspirin 325 mg 11/17/21 10:00 11/24/21 09:35 Aspirin 325 Mg Tab FEEDTUBE 325 mg QDAY BAO Administration Atorvastatin Calcium 40 mg 11/17/21 22:00 11/24/21 21:05 Atorvastatin 40 Mg Tab FEEDTUBE 40 mg QHS BAO Administration Dextrose 50 ml 11/18/21 13:00 Dextrose 50% In Water (25gm) 50 Ml Syringe IV Q30MIN PRN Hypoglycemia Protocol Docusate Sodium 100 mg 11/17/21 10:00 11/24/21 22:29 Docusate Sodium 100 Mg/10 Ml Oral Liqd FEEDTUBE Not Given BID BAO Famotidine 20 mg 11/17/21 10:00 11/24/21 09:35 Famotidine 20 Mg Tab FEEDTUBE 20 mg QDAY BAO Administration Fentanyl 50 mcg 11/11/21 20:56 11/22/21 03:45 Fentanyl 100 Mcg/2 Ml Inj IV 50 mcg Q10MIN PRN Administration ANALGESIA Haloperidol Lactate 5 mg 11/24/21 12:00 11/25/21 05:48 Haloperidol Lactate 5 Mg/1 Ml Inj IV 5 mg Q6H BAO Administration Hydrophilic Ointment 1 applic 11/11/21 20:56 Lip Therapy Vaseline TP Q2HR PRN Dry Lips Fentanyl Citrate 2,000 mcg in 100 mls @ 13.608 mls/hr 11/11/21 21:00 11/24/21 18:06 Fentanyl Drip Premix IV 0 mcg/kg/hr TITR BAO 0 mls/hr Titration Protocol 1 MCG/KG/HR NORepinephrine/NS 8 MG-250 ML 8 mg in 250 mls @ 3.75 mls/hr 11/11/21 23:00 11/25/21 07:05 Norepinephrine/Ns 8 Mg-250 Ml (Double Conc) IV 3 mcg/min TITRATE BAO 5.625 mls/hr Administration Protocol 2 MCG/MIN Propofol 1,000 mg in 100 mls @ 8.166 mls/hr 11/13/21 09:00 11/24/21 18:05 Diprivan 10 Mg/Ml IV 0 mcg/kg/min TITR BAO 0 mls/hr Titration Protocol 5 MCG/KG/MIN Sodium Chloride 100 mls @ 999 mls/hr 11/21/21 08:11 Nacl 0.9% IV LONG PRN Hypotension Vasopressin 20 unit/ Sodium 101 mls @ 9.09 mls/hr 11/23/21 12:00 11/23/21 16:17 Chloride IV 0 units/min TITR BAO 0 mls/hr Titration Protocol 0.03 UNITS/MIN Sodium Chloride 1,000 mls @ 5 mls/hr 11/23/21 13:00 11/23/21 17:26 Nacl 0.9% 1000 Ml IV 0 mls/hr DIRECT BAO Infusion Insulin Human Lispro 0 unit 11/12/21 00:00 11/25/21 06:22 Insulin Lispro 100 Unit/Ml SUB-Q Not Given Q6HR [facility] Protocol Lorazepam 2 mg 11/21/21 11:00 Lorazepam 2 Mg/Ml Vial IV Q4H PRN Agitation Multi-Ingred Cream/Lotion/Oil/Oint 1 applic 11/11/21 20:56 Mineral Oil/Petrolatum, White Ophth Oint 3.5 Gm OU Q4HR PRN Dry Eye(s) Ondansetron HCl 4 mg 11/11/21 22:40 Ondansetron 4 Mg/2 Ml Inj IV Q8H PRN Nausea And Vomiting Polyethylene Glycol 17 gm 11/22/21 10:00 11/24/21 09:35 Polyethylene Glycol 3350 17 Gm Powder PO 17 gm QDAY BAO Administration Senna 8.6 mg 11/17/21 10:00 11/24/21 22:29 Sennosides 8.6 Mg Tab FEEDTUBE Not Given Q12H BAO Sodium Chloride 10 ml 11/12/21 10:00 11/24/21 21:05 Sodium Chloride 0.9% 10 Ml Flush Syringe IV 10 ml BID BAO Administration Sodium Chloride 10 ml 11/11/21 22:40 Sodium Chloride 0.9% 10 Ml Flush Syringe IV PRN PRN LINE FLUSH
[2021-11-25] MEDS: ASPIRIN 325 MG TAB FEEDTUBE SCH (10:57)
[2021-11-25] MEDS: SENNOSIDES 8.6 MG TAB FEEDTUBE SCH ×2 (10:58→22:12)
[2021-11-25] MEDS: DOCUSATE SODIUM 100 MG/10 ML ORAL LIQD FEEDTUBE SCH ×2 (10:58→22:00)
[2021-11-25] MEDS: POLYETHYLENE GLYCOL 3350 17 GM POWDER PO SCH (10:58)
[2021-11-25] MEDS: FAMOTIDINE 20 MG TAB FEEDTUBE SCH (10:58)
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
--- NOTE | 2021-11-25 12:02 | Progress Note ---
Assessment and Plan 56 y/o morbidly obese male with acute respiratory failure, requiring intubation and now in acute renal failure and in need of HD 11/25/21: Continue scheduled haldol. Ok if renal wants to dialyze but would consider only cleaning and not fluid removal as pulm status is stable. LTACH placement 11/24/21: Start scheduled haldol and see if we can wean sedation of. Hold on HD today. LTACH. 11/23/21: Successful trach and peg on yesterday. HD today, post HD start weaning trials. Will need LTACH. Will ask renal about Permcath placement 11/22/21: Follow up post op. Will need LTACH. HD per renal, need to ask them if he will need permacath as well. 11/21/21: Reviewed Gen Surg note. Will reach out to them for further discussion. Continue aggressive volume removal. Wean Pressors as tolerated. 11/18/21: Await Gen Surg comments as they were checking on OR supplies. If not able to, will start working on transfer as patient will need trach given current clinical state. HD per renal. Wean pressors as tolerated. Guarded to poor p rognosis. 11/17/21: Follow up Gen Surge eval, they are checking to see the materials they have in OR. Reviewed neck ultrasound, per their read trachea is only about an 1inch away from the skin. Shocking given his neck size but given the difficulty in intubation and his entrance being anterior, this makes sense. Will defer to surgery call but have no problem with calling for transfer as well. Wean Pressors as tolerated. HD per renal. Continue sedation for RASS of 0. Guarded to poor prognosis. 11/16/21: Given patient body habitus, difficult airway and likely no improvement in current clinical state, will need trach. However given his neck size, I would suggest this be done by ENT as I am not even sure that the bovona XLT is long enough. Ok to consult surgery here but I suggest seeking transfer to a tertiary care facility with ENT to attempt this. Also suggest obtaining neck CT to further evaluate total neck anatomy that way if we need to send this over prior to acceptance we can. Guarded prognosis but mental status is intact. HD per renal. 11/15/21: stop sedation. Attempt PSV. Bipap PRN and QHS. Hopeful extubation today. HD per renal. 11/14/21: Wean PEEP again today and attempt PSV trial. If passes will attempt extubation. HD per renal 11/13/21: HD per renal. No PSV trials today. Wean PEEP after HD. Guarded prognosis. 1. Obtain ABG 2. Place Iglesias catheter 3. Wean Pressors for maps greater than 65 4. Insulin, D50 for Hyperkalemia, and HD per renal 5. Stopped scheduled duonebs 6. Stopped abx 7. Obtain BNP with morning labs 8. Guarded prognosis. CCT 31 minutes. Subjective Date of service: 11/25/21 Principal diagnosis: Acute respiratory failure, Interval history: Off all sedation. Still on levo at 3. On 30% with a sat of 100. Per nursing making urine. Objective Vital Signs - 12hr 11/25/21 11/25/21 11/25/21 00:00 00:16 00:30 Temperature Pulse Rate 97 H 97 H 98 H Pulse Rate [ 95 H From Monitor] Respiratory 24 20 20 Rate Blood Pressure 107/32 118/61 112/65 O2 Sat by Pulse 99 94 Oximetry O2 Sat by Pulse 97 Oximetry [ Assessment] 11/25/21 11/25/21 11/25/21 00:46 01:00 01:16 Temperature Pulse Rate 97 H 96 H 96 H Pulse Rate [ From Monitor] Respiratory 20 19 19 Rate Blood Pressure 112/65 115/63 115/63 O2 Sat by Pulse 99 96 95 Oximetry O2 Sat by Pulse Oximetry [ Assessment] 11/25/21 11/25/21 11/25/21 01:30 01:46 02:00 Temperature Pulse Rate 98 H 95 H 98 H Pulse Rate [ From Monitor] Respiratory 19 20 19 Rate Blood Pressure 122/53 122/53 110/62 O2 Sat by Pulse 95 97 94 Oximetry O2 Sat by Pulse Oximetry [ Assessment] 11/25/21 11/25/21 11/25/21 02:16 02:30 02:46 Temperature Pulse Rate 98 H 98 H 97 H Pulse Rate [ From Monitor] Respiratory 20 20 15 Rate Blood Pressure 110/62 104/57 104/57 O2 Sat by Pulse 97 94 98 Oximetry O2 Sat by Pulse Oximetry [ Assessment] 11/25/21 11/25/21 11/25/21 03:00 03:16 03:30 Temperature Pulse Rate 95 H 98 H 96 H Pulse Rate [ From Monitor] Respiratory 20 16 21 Rate Blood Pressure 104/57 98/48 102/57 O2 Sat by Pulse 97 97 94 Oximetry O2 Sat by Pulse Oximetry [ Assessment] 11/25/21 11/25/21 11/25/21 03:46 04:00 04:16 Temperature Pulse Rate 96 H 96 H 96 H Pulse Rate [ 90 From Monitor] Respiratory 20 20 20 Rate Blood Pressure 102/57 102/57 107/58 O2 Sat by Pulse 97 97 96 Oximetry O2 Sat by Pulse Oximetry [ Assessment] 11/25/21 11/25/21 11/25/21 04:30 04:46 05:00 Temperature Pulse Rate 96 H 98 H 100 H Pulse Rate [ From Monitor] Respiratory 20 17 21 Rate Blood Pressure 107/61 107/61 103/67 O2 Sat by Pulse 93 96 94 Oximetry O2 Sat by Pulse Oximetry [ Assessment] 11/25/21 11/25/21 11/25/21 05:16 05:30 05:46 Temperature Pulse Rate 97 H 104 H 105 H Pulse Rate [ From Monitor] Respiratory 20 22 19 Rate Blood Pressure 103/67 117/79 117/79 O2 Sat by Pulse 97 92 96 Oximetry O2 Sat by Pulse Oximetry [ Assessment] 11/25/21 11/25/21 11/25/21 06:00 06:16 06:30 Temperature Pulse Rate 94 H 91 H 92 H Pulse Rate [ From Monitor] Respiratory 20 20 20 Rate Blood Pressure 115/59 115/59 115/59 O2 Sat by Pulse 91 96 98 Oximetry O2 Sat by Pulse Oximetry [ Assessment] 11/25/21 11/25/21 11/25/21 06:46 07:00 07:15 Temperature Pulse Rate 94 H 97 H 95 H Pulse Rate [ From Monitor] Respiratory 20 20 20 Rate Blood Pressure 81/40 79/43 80/36 O2 Sat by Pulse 95 92 94 Oximetry O2 Sat by Pulse Oximetry [ Assessment] 11/25/21 11/25/21 11/25/21 07:21 07:30 07:45 Temperature 99.3 F Pulse Rate 86 86 Pulse Rate [ From Monitor] Respiratory 19 20 Rate Blood Pressure 85/40 114/66 O2 Sat by Pulse 100 98 Oximetry O2 Sat by Pulse Oximetry [ Assessment] 11/25/21 11/25/21 11/25/21 08:00 08:15 08:25 Temperature 99.3 F Pulse Rate 85 85 93 H Pulse Rate [ 90 From Monitor] Respiratory 20 20 Rate Blood Pressure 113/60 112/62 130/75 O2 Sat by Pulse 96 94 96 Oximetry O2 Sat by Pulse Oximetry [ Assessment] 11/25/21 11/25/21 11/25/21 08:30 08:45 09:00 Temperature Pulse Rate 86 90 85 Pulse Rate [ From Monitor] Respiratory 20 20 20 Rate Blood Pressure 112/62 113/59 113/59 O2 Sat by Pulse 98 96 97 Oximetry O2 Sat by Pulse Oximetry [ Assessment] 11/25/21 11/25/21 11/25/21 09:15 09:30 09:45 Temperature Pulse Rate 85 85 90 Pulse Rate [ From Monitor] Respiratory 20 20 20 Rate Blood Pressure 94/49 101/50 104/56 O2 Sat by Pulse 96 95 96 Oximetry O2 Sat by Pulse Oximetry [ Assessment] 11/25/21 11/25/21 11/25/21 10:00 10:15 10:30 Temperature Pulse Rate 90 90 88 Pulse Rate [ From Monitor] Respiratory 20 20 20 Rate Blood Pressure 116/65 120/67 108/36 O2 Sat by Pulse 97 98 Oximetry O2 Sat by Pulse Oximetry [ Assessment] 11/25/21 11/25/21 10:45 11:00 Temperature Pulse Rate 87 89 Pulse Rate [ From Monitor] Respiratory 20 20 Rate Blood Pressure 96/46 101/52 O2 Sat by Pulse 96 94 Oximetry O2 Sat by Pulse Oximetry [ Assessment] Constitutional: comatose Eyes: non-icteric ENT: other (orally intubated and sedated) Neck: supple, other (large in circumference) Effort: normal Ascultation: Bilateral: diminished breath sounds Cardiovascular: regular rate and rhythm Gastrointestinal: normoactive bowel sounds Extremities: edema, anasarca Neurologic: unable to assess CBC and BMP: 11/24/21 04:30 11/24/21 04:30 ABG, PT/INR, D-dimer: ABG ABG pH 7.467 pH Units (7.350-7.450) H 11/18/21 04:35 ABG pCO2 37.1 mm Hg 11/18/21 04:35 ABG pO2 110.0 mm Hg (80.0-90.0) H 11/18/21 04:35 ABG O2 Saturation 98.1 % (95.0-99.0) 11/18/21 04:35 PT/INR, D-dimer PT 14.4 Sec. (12.2-14.9) 11/22/21 04:00 INR 1.01 (0.87-1.13) 11/22/21 04:00 Abnormal lab findings: Abnormal Labs 11/11/21 11/11/21 11/11/21 19:49 19:49 23:29 WBC 11.5 H RBC Hgb 10.1 L Hct 34.8 L MCH 27 L MCHC 29 L RDW 20.1 H Lymph % (Auto) 10.[address] [facility] % (Auto) 8.8 H Lymph # (Auto) 1.[address] [facility] # (Auto) 1.0 H Seg Neutrophils % 79.8 H Seg Neuts % (Manual) Lymphocytes % (Manual) Seg Neutrophils # 9.2 H Seg Neutrophils # Man Lymphocytes # (Manual) ABG pH ABG pO2 ABG HCO3 ABG O2 Saturation ABG Base Excess ABG Hemoglobin Sodium Potassium 7.6 H* Chloride 107.8 H Carbon Dioxide 13 L BUN 107 H Creatinine 13.8 H Glucose POC Glucose Calcium 7.5 L Phosphorus Magnesium Iron TIBC Total Creatine Kinase 268 H Troponin T 0.324 H* NT-Pro-B Natriuret Pep Total Protein 9.1 H Albumin 3.0 L PTH Intact Urine WBC (Auto) Urine Creatinine 11/11/21 11/11/21 11/12/21 23:29 23:29 02:20 WBC RBC Hgb Hct MCH MCHC RDW Lymph % (Auto) [facility] % (Auto) Lymph # (Auto) [facility] # (Auto) Seg Neutrophils % Seg Neuts % (Manual) Lymphocytes % (Manual) Seg Neutrophils # Seg Neutrophils # Man Lymphocytes # (Manual) ABG pH ABG pO2 ABG HCO3 ABG O2 Saturation ABG Base Excess ABG Hemoglobin Sodium Potassium Chloride Carbon Dioxide BUN Creatinine Glucose POC Glucose Calcium Phosphorus Magnesium Iron 24 L TIBC 157 L Total Creatine Kinase Troponin T NT-Pro-B Natriuret Pep Total Protein Albumin PTH Intact 1174 H Urine WBC (Auto) Urine Creatinine 189.3 H 11/12/21 11/12/21 11/12/21 02:20 02:28 06:55 WBC 20.5 H RBC 3.54 L Hgb 9.4 L Hct 32.3 L MCH 27 L MCHC 29 L RDW 20.0 H Lymph % (Auto) [facility] % (Auto) Lymph # (Auto) [facility] # (Auto) Seg Neutrophils % Seg Neuts % (Manual) 89.0 H Lymphocytes % (Manual) 0 L Seg Neutrophils # Seg Neutrophils # Man 18.2 H Lymphocytes # (Manual) 0.0 L ABG pH 7.172 L* ABG pO2 100.6 H ABG HCO3 17.4 L ABG O2 Saturation ABG Base Excess -10.6 L ABG Hemoglobin 9.4 L Sodium Potassium Chloride Carbon Dioxide BUN Creatinine Glucose POC Glucose Calcium Phosphorus Magnesium Iron TIBC Total Creatine Kinase Troponin T NT-Pro-B Natriuret Pep Total Protein Albumin PTH Intact Urine WBC (Auto) 12.0 H Urine Creatinine 11/12/21 11/12/21 11/12/21 06:55 09:10 12:01 WBC RBC Hgb Hct MCH MCHC RDW Lymph % (Auto) [facility] % (Auto) Lymph # (Auto) [facility] # (Auto) Seg Neutrophils % Seg Neuts % (Manual) Lymphocytes % (Manual) Seg Neutrophils # Seg Neutrophils # Man Lymphocytes # (Manual) ABG pH 7.296 L ABG pO2 237.3 H ABG HCO3 ABG O2 Saturation 99.3 H ABG Base Excess -6.0 L ABG Hemoglobin 8.8 L Sodium Potassium 5.5 H D Chloride 107.1 H Carbon Dioxide 19 L BUN 78 H Creatinine 9.4 H Glucose 119 H POC Glucose 106 H Calcium 8.1 L Phosphorus Magnesium Iron TIBC Total Creatine Kinase Troponin T NT-Pro-B Natriuret Pep Total Protein Albumin PTH Intact Urine WBC (Auto) Urine Creatinine 11/12/21 11/12/21 11/12/21 16:46 16:46 22:30 WBC RBC Hgb Hct MCH MCHC RDW Lymph % (Auto) [facility] % (Auto) Lymph # (Auto) [facility] # (Auto) Seg Neutrophils % Seg Neuts % (Manual) Lymphocytes % (Manual) Seg Neutrophils # Seg Neutrophils # Man Lymphocytes # (Manual) ABG pH ABG pO2 ABG HCO3 ABG O2 Saturation ABG Base Excess ABG Hemoglobin Sodium 146 H Potassium Chloride 108.2 H Carbon Dioxide 21 L BUN 66 H Creatinine 9.8 H Glucose 125 H POC Glucose Calcium 7.8 L Phosphorus Magnesium Iron TIBC Total Creatine Kinase Troponin T 0.319 H* 0.313 H* NT-Pro-B Natriuret Pep Total Protein Albumin PTH Intact Urine WBC (Auto) Urine Creatinine 11/12/21 11/12/21 11/13/21 23:18 Unknown 04:00 WBC 17.2 H RBC 3.09 L Hgb 8.4 L Hct 27.5 L MCH 27 L MCHC 30 L RDW 19.6 H Lymph % (Auto) [facility] % (Auto) Lymph # (Auto) [facility] # (Auto) Seg Neutrophils % Seg Neuts % (Manual) Lymphocytes % (Manual) Seg Neutrophils # Seg Neutrophils # Man Lymphocytes # (Manual) ABG pH ABG pO2 ABG HCO3 ABG O2 Saturation ABG Base Excess ABG Hemoglobin Sodium Potassium Chloride Carbon Dioxide BUN Creatinine Glucose POC Glucose 120 H Calcium Phosphorus Magnesium Iron TIBC Total Creatine Kinase Troponin T NT-Pro-B Natriuret Pep 3674 H Total Protein Albumin PTH Intact Urine WBC (Auto) Urine Creatinine 11/13/21 11/13/21 11/13/21 04:00 04:00 05:23 WBC RBC Hgb Hct MCH MCHC RDW Lymph % (Auto) [facility] % (Auto) Lymph # (Auto) [facility] # (Auto) Seg Neutrophils % Seg Neuts % (Manual) Lymphocytes % (Manual) Seg Neutrophils # Seg Neutrophils # Man Lymphocytes # (Manual) ABG pH 7.274 L ABG pO2 93.2 H ABG HCO3 ABG O2 Saturation ABG Base Excess -3.9 L ABG Hemoglobin 8.2 L Sodium Potassium Chloride Carbon Dioxide 21 L BUN 71 H Creatinine 9.9 H Glucose 128 H POC Glucose 117 H Calcium 7.7 L Phosphorus 5.10 H Magnesium 1.60 L Iron TIBC Total Creatine Kinase Troponin T NT-Pro-B Natriuret Pep Total Protein Albumin PTH Intact Urine WBC (Auto) Urine Creatinine 11/13/21 11/13/21 11/14/21 16:20 23:31 04:10 WBC RBC Hgb Hct MCH MCHC RDW Lymph % (Auto) [facility] % (Auto) Lymph # (Auto) [facility] # (Auto) Seg Neutrophils % Seg Neuts % (Manual) Lymphocytes % (Manual) Seg Neutrophils # Seg Neutrophils # Man Lymphocytes # (Manual) ABG pH ABG pO2 107.1 H ABG HCO3 ABG O2 Saturation ABG Base Excess ABG Hemoglobin 6.5 L Sodium Potassium Chloride Carbon Dioxide BUN Creatinine Glucose POC Glucose 125 H 123 H Calcium Phosphorus Magnesium Iron TIBC Total Creatine Kinase Troponin T NT-Pro-B Natriuret Pep Total Protein Albumin PTH Intact Urine WBC (Auto) Urine Creatinine 11/14/21 11/14/21 11/14/21 06:30 06:30 15:00 WBC 11.2 H RBC 3.03 L Hgb 8.1 L Hct 26.6 L MCH 27 L MCHC 30 L RDW 19.3 H Lymph % (Auto) [facility] % (Auto) Lymph # (Auto) [facility] # (Auto) Seg Neutrophils % Seg Neuts % (Manual) Lymphocytes % (Manual) Seg Neutrophils # Seg Neutrophils # Man Lymphocytes # (Manual) ABG pH ABG pO2 ABG HCO3 ABG O2 Saturation ABG Base Excess ABG Hemoglobin Sodium Potassium 3.0 L D 3.4 L Chloride Carbon Dioxide BUN 41 H Creatinine 7.0 H Glucose 107 H POC Glucose Calcium 7.5 L Phosphorus Magnesium 1.60 L Iron TIBC Total Creatine Kinase Troponin T NT-Pro-B Natriuret Pep Total Protein Albumin PTH Intact Urine WBC (Auto) Urine Creatinine 11/14/21 11/15/21 11/15/21 17:24 04:00 04:00 WBC 11.3 H RBC 3.00 L Hgb 8.1 L Hct 26.3 L MCH 27 L MCHC 31 L RDW 19.2 H Lymph % (Auto) [facility] % (Auto) Lymph # (Auto) [facility] # (Auto) Seg Neutrophils % Seg Neuts % (Manual) Lymphocytes % (Manual) Seg Neutrophils # Seg Neutrophils # Man Lymphocytes # (Manual) ABG pH ABG pO2 ABG HCO3 ABG O2 Saturation ABG Base Excess ABG Hemoglobin Sodium Potassium 3.4 L Chloride Carbon Dioxide BUN 32 H Creatinine 5.9 H Glucose 117 H POC Glucose 124 H Calcium 8.3 L Phosphorus Magnesium Iron TIBC Total Creatine Kinase Troponin T NT-Pro-B Natriuret Pep Total Protein Albumin PTH Intact Urine WBC (Auto) Urine Creatinine 11/15/21 11/15/21 11/16/21 13:58 16:20 04:00 WBC 13.2 H RBC 2.88 L Hgb 7.8 L Hct 25.2 L MCH 27 L MCHC 31 L RDW 19.1 H Lymph % (Auto) [facility] % (Auto) Lymph # (Auto) [facility] # (Auto) Seg Neutrophils % Seg Neuts % (Manual) Lymphocytes % (Manual) Seg Neutrophils # Seg Neutrophils # Man Lymphocytes # (Manual) ABG pH 7.335 L ABG pO2 254.0 H ABG HCO3 26.2 H ABG O2 Saturation 99.4 H ABG Base Excess ABG Hemoglobin 8.5 L Sodium Potassium Chloride Carbon Dioxide BUN Creatinine Glucose POC Glucose 132 H Calcium Phosphorus Magnesium Iron TIBC Total Creatine Kinase Troponin T NT-Pro-B Natriuret Pep Total Protein Albumin PTH Intact Urine WBC (Auto) Urine Creatinine 11/16/21 11/16/21 11/16/21 04:00 04:05 11:06 WBC RBC Hgb Hct MCH MCHC RDW Lymph % (Auto) [facility] % (Auto) Lymph # (Auto) [facility] # (Auto) Seg Neutrophils % Seg Neuts % (Manual) Lymphocytes % (Manual) Seg Neutrophils # Seg Neutrophils # Man Lymphocytes # (Manual) ABG pH ABG pO2 115.6 H ABG HCO3 ABG O2 Saturation ABG Base Excess ABG Hemoglobin 8.1 L Sodium Potassium Chloride Carbon Dioxide BUN 44 H Creatinine 7.7 H Glucose 104 H POC Glucose 106 H Calcium 7.9 L Phosphorus Magnesium Iron TIBC Total Creatine Kinase Troponin T NT-Pro-B Natriuret Pep Total Protein Albumin PTH Intact Urine WBC (Auto) Urine Creatinine 11/16/21 11/16/21 11/17/21 18:05 23:51 04:15 WBC 11.8 H RBC 3.02 L Hgb 8.1 L Hct 26.9 L MCH 27 L MCHC 30 L RDW 18.9 H Lymph % (Auto) [facility] % (Auto) Lymph # (Auto) [facility] # (Auto) Seg Neutrophils % Seg Neuts % (Manual) Lymphocytes % (Manual) Seg Neutrophils # Seg Neutrophils # Man Lymphocytes # (Manual) ABG pH ABG pO2 ABG HCO3 ABG O2 Saturation ABG Base Excess ABG Hemoglobin Sodium Potassium Chloride Carbon Dioxide BUN Creatinine Glucose POC Glucose 109 H 118 H Calcium Phosphorus Magnesium Iron TIBC Total Creatine Kinase Troponin T NT-Pro-B Natriuret Pep Total Protein Albumin PTH Intact Urine WBC (Auto) Urine Creatinine 11/17/21 11/17/21 11/17/21 04:15 04:25 11:25 WBC RBC Hgb Hct MCH MCHC RDW Lymph % (Auto) [facility] % (Auto) Lymph # (Auto) [facility] # (Auto) Seg Neutrophils % Seg Neuts % (Manual) Lymphocytes % (Manual) Seg Neutrophils # Seg Neutrophils # Man Lymphocytes # (Manual) ABG pH ABG pO2 153.8 H ABG HCO3 ABG O2 Saturation ABG Base Excess ABG Hemoglobin 8.3 L Sodium Potassium Chloride Carbon Dioxide BUN 33 H Creatinine 6.2 H Glucose 118 H POC Glucose 108 H Calcium Phosphorus Magnesium Iron TIBC Total Creatine Kinase Troponin T NT-Pro-B Natriuret Pep Total Protein Albumin PTH Intact Urine WBC (Auto) Urine Creatinine 11/18/21 11/18/21 11/18/21 04:00 04:00 04:35 WBC RBC 2.88 L Hgb 7.8 L Hct 25.3 L MCH 27 L MCHC 31 L RDW 18.7 H Lymph % (Auto) [facility] % (Auto) Lymph # (Auto) [facility] # (Auto) Seg Neutrophils % Seg Neuts % (Manual) Lymphocytes % (Manual) Seg Neutrophils # Seg Neutrophils # Man Lymphocytes # (Manual) ABG pH 7.467 H ABG pO2 110.0 H ABG HCO3 26.2 H ABG O2 Saturation ABG Base Excess ABG Hemoglobin 8.1 L Sodium Potassium Chloride Carbon Dioxide BUN 28 H Creatinine 5.5 H Glucose POC Glucose Calcium Phosphorus Magnesium Iron TIBC Total Creatine Kinase Troponin T NT-Pro-B Natriuret Pep Total Protein Albumin PTH Intact Urine WBC (Auto) Urine Creatinine 11/18/21 11/19/21 11/19/21 11:50 04:00 11:30 WBC RBC Hgb Hct MCH MCHC RDW Lymph % (Auto) [facility] % (Auto) Lymph # (Auto) [facility] # (Auto) Seg Neutrophils % Seg Neuts % (Manual) Lymphocytes % (Manual) Seg Neutrophils # Seg Neutrophils # Man Lymphocytes # (Manual) ABG pH ABG pO2 ABG HCO3 ABG O2 Saturation ABG Base Excess ABG Hemoglobin Sodium Potassium Chloride Carbon Dioxide BUN 26 H Creatinine 4.7 H Glucose 110 H POC Glucose 131 H 106 H Calcium Phosphorus Magnesium Iron TIBC Total Creatine Kinase Troponin T NT-Pro-B Natriuret Pep Total Protein Albumin PTH Intact Urine WBC (Auto) Urine Creatinine 11/19/21 11/20/21 11/20/21 17:09 00:14 04:00 WBC RBC Hgb Hct MCH MCHC RDW Lymph % (Auto) [facility] % (Auto) Lymph # (Auto) [facility] # (Auto) Seg Neutrophils % Seg Neuts % (Manual) Lymphocytes % (Manual) Seg Neutrophils # Seg Neutrophils # Man Lymphocytes # (Manual) ABG pH ABG pO2 ABG HCO3 ABG O2 Saturation ABG Base Excess ABG Hemoglobin Sodium 134 L Potassium Chloride 94.4 L Carbon Dioxide BUN 25 H Creatinine 4.6 H Glucose 117 H POC Glucose 129 H 115 H Calcium Phosphorus Magnesium Iron TIBC Total Creatine Kinase Troponin T NT-Pro-B Natriuret Pep Total Protein Albumin PTH Intact Urine WBC (Auto) Urine Creatinine 11/20/21 11/21/21 11/21/21 11:36 04:00 04:00 WBC 12.0 H RBC 2.85 L Hgb 7.8 L Hct 24.8 L MCH MCHC RDW 18.5 H Lymph % (Auto) [facility] % (Auto) Lymph # (Auto) [facility] # (Auto) Seg Neutrophils % Seg Neuts % (Manual) Lymphocytes % (Manual) Seg Neutrophils # Seg Neutrophils # Man Lymphocytes # (Manual) ABG pH ABG pO2 ABG HCO3 ABG O2 Saturation ABG Base Excess ABG Hemoglobin Sodium 133 L Potassium Chloride 95.3 L Carbon Dioxide BUN 40 H Creatinine 6.2 H Glucose 103 H POC Glucose 117 H Calcium Phosphorus Magnesium Iron TIBC Total Creatine Kinase Troponin T NT-Pro-B Natriuret Pep Total Protein Albumin PTH Intact Urine WBC (Auto) Urine Creatinine 11/21/21 11/21/21 11/22/21 11:38 18:13 00:41 WBC RBC Hgb Hct MCH MCHC RDW Lymph % (Auto) [facility] % (Auto) Lymph # (Auto) [facility] # (Auto) Seg Neutrophils % Seg Neuts % (Manual) Lymphocytes % (Manual) Seg Neutrophils # Seg Neutrophils # Man Lymphocytes # (Manual) ABG pH ABG pO2 ABG HCO3 ABG O2 Saturation ABG Base Excess ABG Hemoglobin Sodium Potassium Chloride Carbon Dioxide BUN Creatinine Glucose POC Glucose 127 H 112 H 106 H Calcium Phosphorus Magnesium Iron TIBC Total Creatine Kinase Troponin T NT-Pro-B Natriuret Pep Total Protein Albumin PTH Intact Urine WBC (Auto) Urine Creatinine 11/22/21 11/22/21 11/22/21 04:00 04:00 08:30 WBC 16.1 H 14.8 H RBC 3.01 L 2.95 L Hgb 8.1 L 7.8 L Hct 26.6 L 26.3 L MCH 27 L 27 L MCHC 31 L 30 L RDW 18.3 H 18.9 H Lymph % (Auto) 5.[address] [facility] % (Auto) 13.0 H Lymph # (Auto) 0.[address] [facility] # (Auto) 1.9 H Seg Neutrophils % 79.5 H Seg Neuts % (Manual) Lymphocytes % (Manual) Seg Neutrophils # 11.8 H Seg Neutrophils # Man Lymphocytes # (Manual) ABG pH ABG pO2 ABG HCO3 ABG O2 Saturation ABG Base Excess ABG Hemoglobin Sodium 136 L Potassium Chloride 97.6 L Carbon Dioxide BUN 35 H Creatinine 5.8 H Glucose 120 H POC Glucose Calcium Phosphorus 4.80 H D Magnesium 3.80 H Iron TIBC Total Creatine Kinase Troponin T NT-Pro-B Natriuret Pep Total Protein Albumin PTH Intact Urine WBC (Auto) Urine Creatinine 11/22/21 11/22/21 11/23/21 08:30 16:39 04:00 WBC 13.7 H RBC 2.93 L Hgb 7.8 L Hct 25.7 L MCH 27 L MCHC 30 L RDW 18.5 H Lymph % (Auto) [facility] % (Auto) Lymph # (Auto) [facility] # (Auto) Seg Neutrophils % Seg Neuts % (Manual) Lymphocytes % (Manual) Seg Neutrophils # Seg Neutrophils # Man Lymphocytes # (Manual) ABG pH ABG pO2 ABG HCO3 ABG O2 Saturation ABG Base Excess ABG Hemoglobin Sodium Potassium 5.3 H Chloride Carbon Dioxide BUN 36 H Creatinine 6.1 H Glucose 117 H POC Glucose 119 H Calcium Phosphorus Magnesium Iron TIBC Total Creatine Kinase 534 H Troponin T 0.294 H* NT-Pro-B Natriuret Pep Total Protein Albumin PTH Intact Urine WBC (Auto) Urine Creatinine 11/23/21 11/23/21 11/23/21 04:00 11:56 17:20 WBC RBC Hgb Hct MCH MCHC RDW Lymph % (Auto) [facility] % (Auto) Lymph # (Auto) [facility] # (Auto) Seg Neutrophils % Seg Neuts % (Manual) Lymphocytes % (Manual) Seg Neutrophils # Seg Neutrophils # Man Lymphocytes # (Manual) ABG pH ABG pO2 ABG HCO3 ABG O2 Saturation ABG Base Excess ABG Hemoglobin Sodium Potassium Chloride Carbon Dioxide BUN 27 H Creatinine 5.1 H Glucose 106 H POC Glucose 118 H 110 H Calcium Phosphorus Magnesium Iron TIBC Total Creatine Kinase Troponin T NT-Pro-B Natriuret Pep Total Protein Albumin PTH Intact Urine WBC (Auto) Urine Creatinine 11/24/21 11/24/21 11/24/21 04:30 04:30 05:30 WBC 14.0 H RBC 2.77 L Hgb 7.4 L Hct 24.4 L MCH 27 L MCHC 30 L RDW 18.5 H Lymph % (Auto) [facility] % (Auto) Lymph # (Auto) [facility] # (Auto) Seg Neutrophils % Seg Neuts % (Manual) Lymphocytes % (Manual) Seg Neutrophils # Seg Neutrophils # Man Lymphocytes # (Manual) ABG pH ABG pO2 ABG HCO3 ABG O2 Saturation ABG Base Excess ABG Hemoglobin Sodium Potassium Chloride 97.5 L Carbon Dioxide BUN 35 H Creatinine 6.1 H Glucose POC Glucose 107 H Calcium Phosphorus Magnesium Iron TIBC Total Creatine Kinase Troponin T NT-Pro-B Natriuret Pep Total Protein Albumin PTH Intact Urine WBC (Auto) Urine Creatinine 11/24/21 11/24/21 11:21 18:04 WBC RBC Hgb Hct MCH MCHC RDW Lymph % (Auto) [facility] % (Auto) Lymph # (Auto) [facility] # (Auto) Seg Neutrophils % Seg Neuts % (Manual) Lymphocytes % (Manual) Seg Neutrophils # Seg Neutrophils # Man Lymphocytes # (Manual) ABG pH ABG pO2 ABG HCO3 ABG O2 Saturation ABG Base Excess ABG Hemoglobin Sodium Potassium Chloride Carbon Dioxide BUN Creatinine Glucose POC Glucose 107 H 107 H Calcium Phosphorus Magnesium Iron TIBC Total Creatine Kinase Troponin T NT-Pro-B Natriuret Pep Total Protein Albumin PTH Intact Urine WBC (Auto) Urine Creatinine Allied health notes reviewed: nursing
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
[2021-11-25] MEDS: MIDODRINE 10 MG TAB PO SCH ×2 (14:51→17:58)
[2021-11-25] MEDS: ALBUMIN HUMAN 25% (12.5 GM/50 ML) INJ IV PRN (15:23)
[2021-11-26 00:02] LABS: Hematocrit 22.7 % (35.5-45.6); Hemoglobin 7.3 gm/dl (11.8-15.2); Mean Corpuscular HGB Conc 32 % (32-34); Mean Corpuscular Volume 88 fl (84-94); Platelet Count 243 K/mm3 (140-440); Red Blood Count 2.57 M/mm3 (3.65-5.03); Red Cell Distribution Width 17.9 % (13.2-15.2)
[2021-11-26] MEDS: HALOPERIDOL LACTATE 5 MG/1 ML INJ IV SCH ×4 (00:03→18:19)
[2021-11-26 00:14] LABS: Calcium 8.6 mg/dL (8.4-10.2)
[2021-11-26] MEDS: INSULIN LISPRO 100 UNIT/ML SUB-Q SCH ×4 (06:08→17:32)
[2021-11-26] MEDS: ASPIRIN 325 MG TAB FEEDTUBE SCH (09:21)
[2021-11-26] MEDS: DOCUSATE SODIUM 100 MG/10 ML ORAL LIQD FEEDTUBE SCH ×2 (09:21→23:30)
[2021-11-26] MEDS: POLYETHYLENE GLYCOL 3350 17 GM POWDER PO SCH (09:21)
[2021-11-26] MEDS: MIDODRINE 10 MG TAB PO SCH ×3 (09:21→15:23)
[2021-11-26] MEDS: FAMOTIDINE 20 MG TAB FEEDTUBE SCH (09:21)
[2021-11-26] MEDS: SENNOSIDES 8.6 MG TAB FEEDTUBE SCH ×2 (09:23→23:30)
[2021-11-26 11:24] LABS: Calcium 8.6 mg/dL (8.4-10.2)
[2021-11-26 11:38] LABS: Hematocrit 23.8 % (35.5-45.6); Hemoglobin 7.2 gm/dl (11.8-15.2); Mean Corpuscular HGB Conc 30 % (32-34); Mean Corpuscular Volume 88 fl (84-94); Platelet Count 278 K/mm3 (140-440); Red Blood Count 2.69 M/mm3 (3.65-5.03); Red Cell Distribution Width 17.7 % (13.2-15.2)
--- NOTE | 2021-11-26 11:42 | Progress Note ---
Assessment and Plan Acute respiratory failure Pneumonia Hypoxia KD (acute kidney injury) on top of CKD Hyperkalemia Diabetes Elevated troponin Hypertension Obesity Acidosis Plan -HD today for clearance and volume removal, vasopressor support to be added by ICU team if needed during HD -will assess HD needs daily -Renal ultrasound- Left kidney no visualized. No hydronephrosis to right kidney -Renally dose all medications -Obtain daily weights -Monitor I/O's daily -Assess dialysis needs daily Subjective Date of service: 11/26/21 Principal diagnosis: Acute respiratory failure, Interval history: Intubated on Vent. s/p HD yesterday. Objective - Exam Narrative Exam: General appearance: intubated. Eyes: non-icteric ENT: other (orally intubated and sedated) Neck: supple, other (large in circumference) Effort: normal Ascultation: Bilateral: diminished breath sounds Cardiovascular: regular rate and rhythm Gastrointestinal: normoactive bowel sounds Extremities: edema, anasarca unable to assess - Vital Signs Vital signs: Vital Signs - 12hr 11/25/21 11/26/21 11/26/21 23:45 00:00 00:15 Temperature 98.8 F Pulse Rate 89 87 91 H Pulse Rate [ 94 H From Monitor] Respiratory 20 20 20 Rate Blood Pressure 110/54 98/44 97/46 O2 Sat by Pulse 91 91 91 Oximetry O2 Sat by Pulse 94 Oximetry [ Assessment] 11/26/21 11/26/21 11/26/21 00:30 00:45 01:00 Temperature Pulse Rate 86 87 86 Pulse Rate [ From Monitor] Respiratory 20 20 20 Rate Blood Pressure 98/59 98/59 106/54 O2 Sat by Pulse 92 97 92 Oximetry O2 Sat by Pulse Oximetry [ Assessment] 11/26/21 11/26/21 11/26/21 01:15 01:30 01:45 Temperature Pulse Rate 87 87 91 H Pulse Rate [ From Monitor] Respiratory 20 20 20 Rate Blood Pressure 112/59 115/61 122/68 O2 Sat by Pulse 95 92 91 Oximetry O2 Sat by Pulse Oximetry [ Assessment] 11/26/21 11/26/21 11/26/21 02:00 02:15 02:31 Temperature Pulse Rate 90 87 88 Pulse Rate [ From Monitor] Respiratory 20 20 20 Rate Blood Pressure 115/58 117/62 108/53 O2 Sat by Pulse 92 93 92 Oximetry O2 Sat by Pulse Oximetry [ Assessment] 11/26/21 11/26/21 11/26/21 02:45 03:00 03:15 Temperature Pulse Rate 86 89 92 H Pulse Rate [ From Monitor] Respiratory 20 20 20 Rate Blood Pressure 108/53 117/61 121/70 O2 Sat by Pulse 97 93 93 Oximetry O2 Sat by Pulse Oximetry [ Assessment] 11/26/21 11/26/21 11/26/21 03:31 03:38 03:45 Temperature 99.2 F Pulse Rate 93 H 103 H Pulse Rate [ From Monitor] Respiratory 20 20 Rate Blood Pressure 118/55 118/55 O2 Sat by Pulse 93 97 Oximetry O2 Sat by Pulse Oximetry [ Assessment] 11/26/21 11/26/21 11/26/21 04:00 04:15 04:30 Temperature Pulse Rate 96 H 90 87 Pulse Rate [ 93 H From Monitor] Respiratory 20 20 20 Rate Blood Pressure 118/64 117/59 119/58 O2 Sat by Pulse 95 93 93 Oximetry O2 Sat by Pulse Oximetry [ Assessment] 11/26/21 11/26/21 11/26/21 04:45 05:01 05:15 Temperature Pulse Rate 90 98 H 91 H Pulse Rate [ From Monitor] Respiratory 20 20 20 Rate Blood Pressure 119/65 130/70 130/70 O2 Sat by Pulse 93 93 97 Oximetry O2 Sat by Pulse Oximetry [ Assessment] 11/26/21 11/26/21 11/26/21 05:31 05:45 06:01 Temperature Pulse Rate 89 97 H 101 H Pulse Rate [ From Monitor] Respiratory 20 20 20 Rate Blood Pressure 110/55 109/55 116/65 O2 Sat by Pulse 94 91 92 Oximetry O2 Sat by Pulse Oximetry [ Assessment] 11/26/21 11/26/21 11/26/21 06:15 06:30 06:45 Temperature Pulse Rate 93 H 94 H 101 H Pulse Rate [ From Monitor] Respiratory 20 20 26 H Rate Blood Pressure 113/56 118/57 128/66 O2 Sat by Pulse 90 90 89 Oximetry O2 Sat by Pulse Oximetry [ Assessment] 11/26/21 11/26/21 11/26/21 07:00 07:15 07:30 Temperature Pulse Rate 100 H 109 H 107 H Pulse Rate [ From Monitor] Respiratory 19 17 16 Rate Blood Pressure 129/60 129/60 130/69 O2 Sat by Pulse 89 88 91 Oximetry O2 Sat by Pulse Oximetry [ Assessment] 11/26/21 11/26/21 11/26/21 07:45 08:00 08:15 Temperature 99.3 F Pulse Rate 105 H 111 H 110 H Pulse Rate [ 105 H From Monitor] Respiratory 14 20 20 Rate Blood Pressure 130/69 120/62 116/65 O2 Sat by Pulse 93 90 92 Oximetry O2 Sat by Pulse 94 Oximetry [ Assessment] 11/26/21 11/26/21 11/26/21 08:30 08:45 09:01 Temperature Pulse Rate 105 H 99 H 98 H Pulse Rate [ From Monitor] Respiratory 20 20 21 Rate Blood Pressure 109/56 109/56 100/43 O2 Sat by Pulse 94 93 91 Oximetry O2 Sat by Pulse Oximetry [ Assessment] 11/26/21 11/26/21 11/26/21 09:15 09:30 09:45 Temperature Pulse Rate 98 H 89 94 H Pulse Rate [ From Monitor] Respiratory 19 21 20 Rate Blood Pressure 107/56 119/65 106/54 O2 Sat by Pulse 93 94 93 Oximetry O2 Sat by Pulse Oximetry [ Assessment] 11/26/21 11/26/21 11/26/21 10:00 10:15 10:30 Temperature Pulse Rate 98 H 93 H 93 H Pulse Rate [ From Monitor] Respiratory 21 20 19 Rate Blood Pressure 109/62 102/52 108/58 O2 Sat by Pulse 94 97 94 Oximetry O2 Sat by Pulse Oximetry [ Assessment] 11/26/21 11/26/21 10:45 11:00 Temperature Pulse Rate 90 93 H Pulse Rate [ From Monitor] Respiratory 20 20 Rate Blood Pressure 122/66 121/67 O2 Sat by Pulse 95 92 Oximetry O2 Sat by Pulse Oximetry [ Assessment] - Lab 11/26/21 10:41 11/26/21 10:46 Most recent lab results ABG pH 7.467 pH Units (7.350-7.450) H 11/18/21 04:35 ABG pCO2 37.1 mm Hg 11/18/21 04:35 ABG pO2 110.0 mm Hg (80.0-90.0) H 11/18/21 04:35 ABG HCO3 26.2 mmol/L (20.0-26.0) H 11/18/21 04:35 ABG O2 Saturation 98.1 % (95.0-99.0) 11/18/21 04:35 Calcium 8.6 mg/dL (8.4-10.2) 11/26/21 10:46 Phosphorus 3.20 mg/dL (2.5-4.5) 11/25/21 23:50 Magnesium 2.50 mg/dL (1.7-2.3) H 11/25/21 23:50 Urine Creatinine 189.3 mg/dL (0.1-20.0) H 11/12/21 02:20 Urine Sodium 30 mmol/L 11/12/21 02:20 Medications & Allergies - Medications Allergies/Adverse Reactions: Allergies No Known Allergies Allergy (Verified 11/11/21 20:58) Home Medications: Home Medications Medication Instructions Recorded Confirmed Last Taken Type No Known Home Medications [No 11/22/21 11/22/21 Unknown History Reported Home Medications] Active Medications: Generic Name Dose Route Start Last Admin Trade Name Freq PRN Reason Stop Dose Admin Acetaminophen 650 mg 11/11/21 22:40 Acetaminophen 325 Mg Tab PO Q4H PRN Pain MILD(1-3)/Fever >100.5/SOTO Albumin Human 12.5 gm 11/23/21 10:00 11/25/21 15:23 Albumin Human 25% (12.5 Gm/50 Ml) Inj IV 12.5 gm LONG PRN Administration Hypotension Albuterol 2.5 mg 11/11/21 22:40 Albuterol 2.5 Mg/3 Ml Nebu IH Q3HRT PRN Shortness Of Breath Aspirin 325 mg 11/17/21 10:00 11/26/21 09:21 Aspirin 325 Mg Tab FEEDTUBE 325 mg QDAY BAO Administration Atorvastatin Calcium 40 mg 11/17/21 22:00 11/25/21 21:04 Atorvastatin 40 Mg Tab FEEDTUBE 40 mg QHS BAO Administration Dextrose 50 ml 11/18/21 13:00 Dextrose 50% In Water (25gm) 50 Ml Syringe IV Q30MIN PRN Hypoglycemia Protocol Docusate Sodium 100 mg 11/17/21 10:00 11/26/21 09:21 Docusate Sodium 100 Mg/10 Ml Oral Liqd FEEDTUBE 100 mg BID BAO Administration Famotidine 20 mg 11/17/21 10:00 11/26/21 09:21 Famotidine 20 Mg Tab FEEDTUBE 20 mg QDAY BAO Administration Fentanyl 50 mcg 11/11/21 20:56 11/22/21 03:45 Fentanyl 100 Mcg/2 Ml Inj IV 50 mcg Q10MIN PRN Administration ANALGESIA Haloperidol Lactate 5 mg 11/24/21 12:00 11/26/21 11:24 Haloperidol Lactate 5 Mg/1 Ml Inj IV 5 mg Q6H BAO Administration Hydrophilic Ointment 1 applic 11/11/21 20:56 Lip Therapy Vaseline TP Q2HR PRN Dry Lips Fentanyl Citrate 2,000 mcg in 100 mls @ 13.608 mls/hr 11/11/21 21:00 11/24/21 18:06 Fentanyl Drip Premix IV 0 mcg/kg/hr TITR BAO 0 mls/hr Titration Protocol 1 MCG/KG/HR NORepinephrine/NS 8 MG-250 ML 8 mg in 250 mls @ 3.75 mls/hr 11/11/21 23:00 11/26/21 07:33 Norepinephrine/Ns 8 Mg-250 Ml (Double Conc) IV 0 mcg/min TITRATE BAO 0 mls/hr Titration Protocol 2 MCG/MIN Propofol 1,000 mg in 100 mls @ 8.166 mls/hr 11/13/21 09:00 11/24/21 18:05 Diprivan 10 Mg/Ml IV 0 mcg/kg/min TITR BAO 0 mls/hr Titration Protocol 5 MCG/KG/MIN Sodium Chloride 100 mls @ 999 mls/hr 11/21/21 08:11 Nacl 0.9% IV LONG PRN Hypotension Vasopressin 20 unit/ Sodium 101 mls @ 9.09 mls/hr 11/23/21 12:00 11/23/21 16:17 Chloride IV 0 units/min TITR BAO 0 mls/hr Titration Protocol 0.03 UNITS/MIN Sodium Chloride 1,000 mls @ 5 mls/hr 11/23/21 13:00 11/23/21 17:26 Nacl 0.9% 1000 Ml IV 0 mls/hr DIRECT BAO Infusion Insulin Human Lispro 0 unit 11/12/21 00:00 11/26/21 06:08 Insulin Lispro 100 Unit/Ml SUB-Q Not Given Q6HR BAO Protocol Lorazepam 2 mg 11/21/21 11:00 Lorazepam 2 Mg/Ml Vial IV Q4H PRN Agitation Midodrine 10 mg 11/25/21 13:00 11/26/21 11:24 Midodrine 10 Mg Tab PO 10 mg TID@0800,1200,1600 BAO Administration Multi-Ingred Cream/Lotion/Oil/Oint 1 applic 11/11/21 20:56 Mineral Oil/Petrolatum, White Ophth Oint 3.5 Gm OU Q4HR PRN Dry Eye(s) Ondansetron HCl 4 mg 11/11/21 22:40 Ondansetron 4 Mg/2 Ml Inj IV Q8H PRN Nausea And Vomiting Polyethylene Glycol 17 gm 11/22/21 10:00 11/26/21 09:21 Polyethylene Glycol 3350 17 Gm Powder PO 17 gm QDAY BAO Administration Senna 8.6 mg 11/17/21 10:00 11/26/21 09:23 Sennosides 8.6 Mg Tab FEEDTUBE 8.6 mg Q12H BAO Administration Sodium Chloride 10 ml 11/12/21 10:00 11/26/21 09:21 Sodium Chloride 0.9% 10 Ml Flush Syringe IV 10 ml BID BAO Administration Sodium Chloride 10 ml 11/11/21 22:40 Sodium Chloride 0.9% 10 Ml Flush Syringe IV PRN PRN LINE FLUSH
--- NOTE | 2021-11-26 12:01 | Progress Note ---
Assessment and Plan 56 y/o morbidly obese male with acute respiratory failure, requiring intubation and now in acute renal failure and in need of HD 11/26/21: Can likely stop haldol today as delirium seems to be stablized. LTACH next week. 11/25/21: Continue scheduled haldol. Ok if renal wants to dialyze but would consider only cleaning and not fluid removal as pulm status is stable. LTACH placement 11/24/21: Start scheduled haldol and see if we can wean sedation of. Hold on HD today. LTACH. 11/23/21: Successful trach and peg on yesterday. HD today, post HD start weaning trials. Will need LTACH. Will ask renal about Permcath placement 11/22/21: Follow up post op. Will need LTACH. HD per renal, need to ask them if he will need permacath as well. 11/21/21: Reviewed Gen Surg note. Will reach out to them for further discussion. Continue aggressive volume removal. Wean Pressors as tolerated. 11/18/21: Await Gen Surg comments as they were checking on OR supplies. If not able to, will start working on transfer as patient will need trach given current clinical state. HD per renal. Wean pressors as tolerated. Guarded to poor prognosis. 11/17/21: Follow up Gen Surge eval, they are checking to see the materials they have in OR. Reviewed neck ultrasound, per their read trachea is only about an 1inch away from the skin. Shocking given his neck size but given the difficulty in intubation and his entrance being anterior, this makes sense. Will defer to surgery call but have no problem with calling for transfer as well. Wean Pre ssors as tolerated. HD per renal. Continue sedation for RASS of 0. Guarded to poor prognosis. 11/16/21: Given patient body habitus, difficult airway and likely no improvement in current clinical state, will need trach. However given his neck size, I would suggest this be done by ENT as I am not even sure that the bovona XLT is long enough. Ok to consult surgery here but I suggest seeking transfer to a tertiary care facility with ENT to attempt this. Also suggest obtaining neck CT to further evaluate total neck anatomy that way if we need to send this over prior to acceptance we can. Guarded prognosis but mental status is intact. HD per renal. 11/15/21: stop sedation. Attempt PSV. Bipap PRN and QHS. Hopeful extubation today. HD per renal. 11/14/21: Wean PEEP again today and attempt PSV trial. If passes will attempt extubation. HD per renal 11/13/21: HD per renal. No PSV trials today. Wean PEEP after HD. Guarded prognosis. 1. Obtain ABG 2. Place Iglesias catheter 3. Wean Pressors for maps greater than 65 4. Insulin, D50 for Hyperkalemia, and HD per renal 5. Stopped scheduled duonebs 6. Stopped abx 7. Obtain BNP with morning labs 8. Guarded prognosis. CCT 31 minutes. Subjective Date of service: 11/26/21 Principal diagnosis: Acute respiratory failure, Interval history: No acute events. Awake and alert. On PRVC. Objective Vital Signs - 12hr 11/26/21 11/26/21 11/26/21 00:15 00:30 00:45 Temperature Pulse Rate 91 H 86 87 Pulse Rate [ From Monitor] Respiratory 20 20 20 Rate Blood Pressure 97/46 98/59 98/59 O2 Sat by Pulse 91 92 97 Oximetry O2 Sat by Pulse Oximetry [ Assessment] 11/26/21 11/26/21 11/26/21 01:00 01:15 01:30 Temperature Pulse Rate 86 87 87 Pulse Rate [ From Monitor] Respiratory 20 20 20 Rate Blood Pressure 106/54 112/59 115/61 O2 Sat by Pulse 92 95 92 Oximetry O2 Sat by Pulse Oximetry [ Assessment] 11/26/21 11/26/21 11/26/21 01:45 02:00 02:15 Temperature Pulse Rate 91 H 90 87 Pulse Rate [ From Monitor] Respiratory 20 20 20 Rate Blood Pressure 122/68 115/58 117/62 O2 Sat by Pulse 91 92 93 Oximetry O2 Sat by Pulse Oximetry [ Assessment] 11/26/21 11/26/21 11/26/21 02:31 02:45 03:00 Temperature Pulse Rate 88 86 89 Pulse Rate [ From Monitor] Respiratory 20 20 20 Rate Blood Pressure 108/53 108/53 117/61 O2 Sat by Pulse 92 97 93 Oximetry O2 Sat by Pulse Oximetry [ Assessment] 11/26/21 11/26/21 11/26/21 03:15 03:31 03:38 Temperature 99.2 F Pulse Rate 92 H 93 H Pulse Rate [ From Monitor] Respiratory 20 20 Rate Blood Pressure 121/70 118/55 O2 Sat by Pulse 93 93 Oximetry O2 Sat by Pulse Oximetry [ Assessment] 11/26/21 11/26/21 11/26/21 03:45 04:00 04:15 Temperature Pulse Rate 103 H 96 H 90 Pulse Rate [ 93 H From Monitor] Respiratory 20 20 20 Rate Blood Pressure 118/55 118/64 117/59 O2 Sat by Pulse 97 95 93 Oximetry O2 Sat by Pulse Oximetry [ Assessment] 11/26/21 11/26/21 11/26/21 04:30 04:45 05:01 Temperature Pulse Rate 87 90 98 H Pulse Rate [ From Monitor] Respiratory 20 20 20 Rate Blood Pressure 119/58 119/65 130/70 O2 Sat by Pulse 93 93 93 Oximetry O2 Sat by Pulse Oximetry [ Assessment] 11/26/21 11/26/21 11/26/21 05:15 05:31 05:45 Temperature Pulse Rate 91 H 89 97 H Pulse Rate [ From Monitor] Respiratory 20 20 20 Rate Blood Pressure 130/70 110/55 109/55 O2 Sat by Pulse 97 94 91 Oximetry O2 Sat by Pulse Oximetry [ Assessment] 11/26/21 11/26/21 11/26/21 06:01 06:15 06:30 Temperature Pulse Rate 101 H 93 H 94 H Pulse Rate [ From Monitor] Respiratory 20 20 20 Rate Blood Pressure 116/65 113/56 118/57 O2 Sat by Pulse 92 90 90 Oximetry O2 Sat by Pulse Oximetry [ Assessment] 11/26/21 11/26/21 11/26/21 06:45 07:00 07:15 Temperature Pulse Rate 101 H 100 H 109 H Pulse Rate [ From Monitor] Respiratory 26 H 19 17 Rate Blood Pressure 128/66 129/60 129/60 O2 Sat by Pulse 89 89 88 Oximetry O2 Sat by Pulse Oximetry [ Assessment] 11/26/21 11/26/21 11/26/21 07:30 07:45 08:00 Temperature 99.3 F Pulse Rate 107 H 105 H 111 H Pulse Rate [ 105 H From Monitor] Respiratory 16 14 20 Rate Blood Pressure 130/69 130/69 120/62 O2 Sat by Pulse 91 93 90 Oximetry O2 Sat by Pulse Oximetry [ Assessment] 11/26/21 11/26/21 11/26/21 08:15 08:30 08:45 Temperature Pulse Rate 110 H 105 H 99 H Pulse Rate [ From Monitor] Respiratory 20 20 20 Rate Blood Pressure 116/65 109/56 109/56 O2 Sat by Pulse 92 94 93 Oximetry O2 Sat by Pulse 94 Oximetry [ Assessment] 11/26/21 11/26/21 11/26/21 09:01 09:15 09:30 Temperature Pulse Rate 98 H 98 H 89 Pulse Rate [ From Monitor] Respiratory 21 19 21 Rate Blood Pressure 100/43 107/56 119/65 O2 Sat by Pulse 91 93 94 Oximetry O2 Sat by Pulse Oximetry [ Assessment] 11/26/21 11/26/21 11/26/21 09:45 10:00 10:15 Temperature Pulse Rate 94 H 98 H 93 H Pulse Rate [ From Monitor] Respiratory 20 21 20 Rate Blood Pressure 106/54 109/62 102/52 O2 Sat by Pulse 93 94 97 Oximetry O2 Sat by Pulse Oximetry [ Assessment] 11/26/21 11/26/21 11/26/21 10:30 10:45 11:00 Temperature Pulse Rate 93 H 90 93 H Pulse Rate [ From Monitor] Respiratory 19 20 20 Rate Blood Pressure 108/58 122/66 121/67 O2 Sat by Pulse 94 95 92 Oximetry O2 Sat by Pulse Oximetry [ Assessment] Constitutional: comatose Eyes: non-icteric ENT: other (orally intubated and sedated) Neck: supple, other (large in circumference) Effort: normal Ascultation: Bilateral: diminished breath sounds Cardiovascular: regular rate and rhythm Gastrointestinal: normoactive bowel sounds Extremities: edema, anasarca Neurologic: unable to assess CBC and BMP: 11/26/21 10:41 11/26/21 10:46 ABG, PT/INR, D-dimer: ABG ABG pH 7.467 pH Units (7.350-7.450) H 11/18/21 04:35 ABG pCO2 37.1 mm Hg 11/18/21 04:35 ABG pO2 110.0 mm Hg (80.0-90.0) H 11/18/21 04:35 ABG O2 Saturation 98.1 % (95.0-99.0) 11/18/21 04:35 PT/INR, D-dimer PT 14.4 Sec. (12.2-14.9) 11/22/21 04:00 INR 1.01 (0.87-1.13) 11/22/21 04:00 Abnormal lab findings: Abnormal Labs 11/11/21 11/11/21 11/11/21 19:49 19:49 23:29 WBC 11.5 H RBC Hgb 10.1 L Hct 34.8 L MCH 27 L MCHC 29 L RDW 20.1 H Lymph % (Auto) 10.0 L Boundary % (Auto) 8.8 H Lymph # (Auto) 1.1 L Boundary # (Auto) 1.0 H Seg Neutrophils % 79.8 H Seg Neuts % (Manual) Lymphocytes % (Manual) Seg Neutrophils # 9.2 H Seg Neutrophils # Man Lymphocytes # (Manual) ABG pH ABG pO2 ABG HCO3 ABG O2 Saturation ABG Base Excess ABG Hemoglobin Sodium Potassium 7.6 H* Chloride 107.8 H Carbon Dioxide 13 L BUN 107 H Creatinine 13.8 H Glucose POC Glucose Calcium 7.5 L Phosphorus Magnesium Iron TIBC Total Creatine Kinase 268 H Troponin T 0.324 H* NT-Pro-B Natriuret Pep Total Protein 9.1 H Albumin 3.0 L PTH Intact Urine WBC (Auto) Urine Creatinine 11/11/21 11/11/21 11/12/21 23:29 23:29 02:20 WBC RBC Hgb Hct MCH MCHC RDW Lymph % (Auto) Boundary % (Auto) Lymph # (Auto) Boundary # (Auto) Seg Neutrophils % Seg Neuts % (Manual) Lymphocytes % (Manual) Seg Neutrophils # Seg Neutrophils # Man Lymphocytes # (Manual) ABG pH ABG pO2 ABG HCO3 ABG O2 Saturation ABG Base Excess ABG Hemoglobin Sodium Potassium Chloride Carbon Dioxide BUN Creatinine Glucose POC Glucose Calcium Phosphorus Magnesium Iron 24 L TIBC 157 L Total Creatine Kinase Troponin T NT-Pro-B Natriuret Pep Total Protein Albumin PTH Intact 1174 H Urine WBC (Auto) Urine Creatinine 189.3 H 11/12/21 11/12/21 11/12/21 02:20 02:28 06:55 WBC 20.5 H RBC 3.54 L Hgb 9.4 L Hct 32.3 L MCH 27 L MCHC 29 L RDW 20.0 H Lymph % (Auto) Boundary % (Auto) Lymph # (Auto) Boundary # (Auto) Seg Neutrophils % Seg Neuts % (Manual) 89.0 H Lymphocytes % (Manual) 0 L Seg Neutrophils # Seg Neutrophils # Man 18.2 H Lymphocytes # (Manual) 0.0 L ABG pH 7.172 L* ABG pO2 100.6 H ABG HCO3 17.4 L ABG O2 Saturation ABG Base Excess -10.6 L ABG Hemoglobin 9.4 L Sodium Potassium Chloride Carbon Dioxide BUN Creatinine Glucose POC Glucose Calcium Phosphorus Magnesium Iron TIBC Total Creatine Kinase Troponin T NT-Pro-B Natriuret Pep Total Protein Albumin PTH Intact Urine WBC (Auto) 12.0 H Urine Creatinine 11/12/21 11/12/21 11/12/21 06:55 09:10 12:01 WBC RBC Hgb Hct MCH MCHC RDW Lymph % (Auto) Boundary % (Auto) Lymph # (Auto) Boundary # (Auto) Seg Neutrophils % Seg Neuts % (Manual) Lymphocytes % (Manual) Seg Neutrophils # Seg Neutrophils # Man Lymphocytes # (Manual) ABG pH 7.296 L ABG pO2 237.3 H ABG HCO3 ABG O2 Saturation 99.3 H ABG Base Excess -6.0 L ABG Hemoglobin 8.8 L Sodium Potassium 5.5 H D Chloride 107.1 H Carbon Dioxide 19 L BUN 78 H Creatinine 9.4 H Glucose 119 H POC Glucose 106 H Calcium 8.1 L Phosphorus Magnesium Iron TIBC Total Creatine Kinase Troponin T NT-Pro-B Natriuret Pep Total Protein Albumin PTH Intact Urine WBC (Auto) Urine Creatinine 11/12/21 11/12/21 11/12/21 16:46 16:46 22:30 WBC RBC Hgb Hct MCH MCHC RDW Lymph % (Auto) Boundary % (Auto) Lymph # (Auto) Boundary # (Auto) Seg Neutrophils % Seg Neuts % (Manual) Lymphocytes % (Manual) Seg Neutrophils # Seg Neutrophils # Man Lymphocytes # (Manual) ABG pH ABG pO2 ABG HCO3 ABG O2 Saturation ABG Base Excess ABG Hemoglobin Sodium 146 H Potassium Chloride 108.2 H Carbon Dioxide 21 L BUN 66 H Creatinine 9.8 H Glucose 125 H POC Glucose Calcium 7.8 L Phosphorus Magnesium Iron TIBC Total Creatine Kinase Troponin T 0.319 H* 0.313 H* NT-Pro-B Natriuret Pep Total Protein Albumin PTH Intact Urine WBC (Auto) Urine Creatinine 11/12/21 11/12/21 11/13/21 23:18 Unknown 04:00 WBC 17.2 H RBC 3.09 L Hgb 8.4 L Hct 27.5 L MCH 27 L MCHC 30 L RDW 19.6 H Lymph % (Auto) Boundary % (Auto) Lymph # (Auto) Boundary # (Auto) Seg Neutrophils % Seg Neuts % (Manual) Lymphocytes % (Manual) Seg Neutrophils # Seg Neutrophils # Man Lymphocytes # (Manual) ABG pH ABG pO2 ABG HCO3 ABG O2 Saturation ABG Base Excess ABG Hemoglobin Sodium Potassium Chloride Carbon Dioxide BUN Creatinine Glucose POC Glucose 120 H Calcium Phosphorus Magnesium Iron TIBC Total Creatine Kinase Troponin T NT-Pro-B Natriuret Pep 3674 H Total Protein Albumin PTH Intact Urine WBC (Auto) Urine Creatinine 11/13/21 11/13/21 11/13/21 04:00 04:00 05:23 WBC RBC Hgb Hct MCH MCHC RDW Lymph % (Auto) Boundary % (Auto) Lymph # (Auto) Boundary # (Auto) Seg Neutrophils % Seg Neuts % (Manual) Lymphocytes % (Manual) Seg Neutrophils # Seg Neutrophils # Man Lymphocytes # (Manual) ABG pH 7.274 L ABG pO2 93.2 H ABG HCO3 ABG O2 Saturation ABG Base Excess -3.9 L ABG Hemoglobin 8.2 L Sodium Potassium Chloride Carbon Dioxide 21 L BUN 71 H Creatinine 9.9 H Glucose 128 H POC Glucose 117 H Calcium 7.7 L Phosphorus 5.10 H Magnesium 1.60 L Iron TIBC Total Creatine Kinase Troponin T NT-Pro-B Natriuret Pep Total Protein Albumin PTH Intact Urine WBC (Auto) Urine Creatinine 11/13/21 11/13/21 11/14/21 16:20 23:31 04:10 WBC RBC Hgb Hct MCH MCHC RDW Lymph % (Auto) Boundary % (Auto) Lymph # (Auto) Boundary # (Auto) Seg Neutrophils % Seg Neuts % (Manual) Lymphocytes % (Manual) Seg Neutrophils # Seg Neutrophils # Man Lymphocytes # (Manual) ABG pH ABG pO2 107.1 H ABG HCO3 ABG O2 Saturation ABG Base Excess ABG Hemoglobin 6.5 L Sodium Potassium Chloride Carbon Dioxide BUN Creatinine Glucose POC Glucose 125 H 123 H Calcium Phosphorus Magnesium Iron TIBC Total Creatine Kinase Troponin T NT-Pro-B Natriuret Pep Total Protein Albumin PTH Intact Urine WBC (Auto) Urine Creatinine 03/28/22 03/28/22 03/28/22 06:30 06:30 15:00 WBC 11.2 H RBC 3.03 L Hgb 8.1 L Hct 26.6 L MCH 27 L MCHC 30 L RDW 19.3 H Lymph % (Auto) Boundary % (Auto) Lymph # (Auto) Boundary # (Auto) Seg Neutrophils % Seg Neuts % (Manual) Lymphocytes % (Manual) Seg Neutrophils # Seg Neutrophils # Man Lymphocytes # (Manual) ABG pH ABG pO2 ABG HCO3 ABG O2 Saturation ABG Base Excess ABG Hemoglobin Sodium Potassium 3.0 L D 3.4 L Chloride Carbon Dioxide BUN 41 H Creatinine 7.0 H Glucose 107 H POC Glucose Calcium 7.5 L Phosphorus Magnesium 1.60 L Iron TIBC Total Creatine Kinase Troponin T NT-Pro-B Natriuret Pep Total Protein Albumin PTH Intact Urine WBC (Auto) Urine Creatinine 11/14/21 11/15/21 11/15/21 17:24 04:00 04:00 WBC 11.3 H RBC 3.00 L Hgb 8.1 L Hct 26.3 L MCH 27 L MCHC 31 L RDW 19.2 H Lymph % (Auto) Boundary % (Auto) Lymph # (Auto) Boundary # (Auto) Seg Neutrophils % Seg Neuts % (Manual) Lymphocytes % (Manual) Seg Neutrophils # Seg Neutrophils # Man Lymphocytes # (Manual) ABG pH ABG pO2 ABG HCO3 ABG O2 Saturation ABG Base Excess ABG Hemoglobin Sodium Potassium 3.4 L Chloride Carbon Dioxide BUN 32 H Creatinine 5.9 H Glucose 117 H POC Glucose 124 H Calcium 8.3 L Phosphorus Magnesium Iron TIBC Total Creatine Kinase Troponin T NT-Pro-B Natriuret Pep Total Protein Albumin PTH Intact Urine WBC (Auto) Urine Creatinine 11/15/21 11/15/21 11/16/21 13:58 16:20 04:00 WBC 13.2 H RBC 2.88 L Hgb 7.8 L Hct 25.2 L MCH 27 L MCHC 31 L RDW 19.1 H Lymph % (Auto) Boundary % (Auto) Lymph # (Auto) Boundary # (Auto) Seg Neutrophils % Seg Neuts % (Manual) Lymphocytes % (Manual) Seg Neutrophils # Seg Neutrophils # Man Lymphocytes # (Manual) ABG pH 7.335 L ABG pO2 254.0 H ABG HCO3 26.2 H ABG O2 Saturation 99.4 H ABG Base Excess ABG Hemoglobin 8.5 L Sodium Potassium Chloride Carbon Dioxide BUN Creatinine Glucose POC Glucose 132 H Calcium Phosphorus Magnesium Iron TIBC Total Creatine Kinase Troponin T NT-Pro-B Natriuret Pep Total Protein Albumin PTH Intact Urine WBC (Auto) Urine Creatinine 11/16/21 11/16/21 11/16/21 04:00 04:05 11:06 WBC RBC Hgb Hct MCH MCHC RDW Lymph % (Auto) Boundary % (Auto) Lymph # (Auto) Boundary # (Auto) Seg Neutrophils % Seg Neuts % (Manual) Lymphocytes % (Manual) Seg Neutrophils # Seg Neutrophils # Man Lymphocytes # (Manual) ABG pH ABG pO2 115.6 H ABG HCO3 ABG O2 Saturation ABG Base Excess ABG Hemoglobin 8.1 L Sodium Potassium Chloride Carbon Dioxide BUN 44 H Creatinine 7.7 H Glucose 104 H POC Glucose 106 H Calcium 7.9 L Phosphorus Magnesium Iron TIBC Total Creatine Kinase Troponin T NT-Pro-B Natriuret Pep Total Protein Albumin PTH Intact Urine WBC (Auto) Urine Creatinine 11/16/21 11/16/21 11/17/21 18:05 23:51 04:15 WBC 11.8 H RBC 3.02 L Hgb 8.1 L Hct 26.9 L MCH 27 L MCHC 30 L RDW 18.9 H Lymph % (Auto) Boundary % (Auto) Lymph # (Auto) Boundary # (Auto) Seg Neutrophils % Seg Neuts % (Manual) Lymphocytes % (Manual) Seg Neutrophils # Seg Neutrophils # Man Lymphocytes # (Manual) ABG pH ABG pO2 ABG HCO3 ABG O2 Saturation ABG Base Excess ABG Hemoglobin Sodium Potassium Chloride Carbon Dioxide BUN Creatinine Glucose POC Glucose 109 H 118 H Calcium Phosphorus Magnesium Iron TIBC Total Creatine Kinase Troponin T NT-Pro-B Natriuret Pep Total Protein Albumin PTH Intact Urine WBC (Auto) Urine Creatinine 11/17/21 11/17/21 11/17/21 04:15 04:25 11:25 WBC RBC Hgb Hct MCH MCHC RDW Lymph % (Auto) Boundary % (Auto) Lymph # (Auto) Boundary # (Auto) Seg Neutrophils % Seg Neuts % (Manual) Lymphocytes % (Manual) Seg Neutrophils # Seg Neutrophils # Man Lymphocytes # (Manual) ABG pH ABG pO2 153.8 H ABG HCO3 ABG O2 Saturation ABG Base Excess ABG Hemoglobin 8.3 L Sodium Potassium Chloride Carbon Dioxide BUN 33 H Creatinine 6.2 H Glucose 118 H POC Glucose 108 H Calcium Phosphorus Magnesium Iron TIBC Total Creatine Kinase Troponin T NT-Pro-B Natriuret Pep Total Protein Albumin PTH Intact Urine WBC (Auto) Urine Creatinine 11/18/21 11/18/21 11/18/21 04:00 04:00 04:35 WBC RBC 2.88 L Hgb 7.8 L Hct 25.3 L MCH 27 L MCHC 31 L RDW 18.7 H Lymph % (Auto) Boundary % (Auto) Lymph # (Auto) Boundary # (Auto) Seg Neutrophils % Seg Neuts % (Manual) Lymphocytes % (Manual) Seg Neutrophils # Seg Neutrophils # Man Lymphocytes # (Manual) ABG pH 7.467 H ABG pO2 110.0 H ABG HCO3 26.2 H ABG O2 Saturation ABG Base Excess ABG Hemoglobin 8.1 L Sodium Potassium Chloride Carbon Dioxide BUN 28 H Creatinine 5.5 H Glucose POC Glucose Calcium Phosphorus Magnesium Iron TIBC Total Creatine Kinase Troponin T NT-Pro-B Natriuret Pep Total Protein Albumin PTH Intact Urine WBC (Auto) Urine Creatinine 11/18/21 11/19/21 11/19/21 11:50 04:00 11:30 WBC RBC Hgb Hct MCH MCHC RDW Lymph % (Auto) Boundary % (Auto) Lymph # (Auto) Boundary # (Auto) Seg Neutrophils % Seg Neuts % (Manual) Lymphocytes % (Manual) Seg Neutrophils # Seg Neutrophils # Man Lymphocytes # (Manual) ABG pH ABG pO2 ABG HCO3 ABG O2 Saturation ABG Base Excess ABG Hemoglobin Sodium Potassium Chloride Carbon Dioxide BUN 26 H Creatinine 4.7 H Glucose 110 H POC Glucose 131 H 106 H Calcium Phosphorus Magnesium Iron TIBC Total Creatine Kinase Troponin T NT-Pro-B Natriuret Pep Total Protein Albumin PTH Intact Urine WBC (Auto) Urine Creatinine 11/19/21 11/20/21 11/20/21 17:09 00:14 04:00 WBC RBC Hgb Hct MCH MCHC RDW Lymph % (Auto) Boundary % (Auto) Lymph # (Auto) Boundary # (Auto) Seg Neutrophils % Seg Neuts % (Manual) Lymphocytes % (Manual) Seg Neutrophils # Seg Neutrophils # Man Lymphocytes # (Manual) ABG pH ABG pO2 ABG HCO3 ABG O2 Saturation ABG Base Excess ABG Hemoglobin Sodium 134 L Potassium Chloride 94.4 L Carbon Dioxide BUN 25 H Creatinine 4.6 H Glucose 117 H POC Glucose 129 H 115 H Calcium Phosphorus Magnesium Iron TIBC Total Creatine Kinase Troponin T NT-Pro-B Natriuret Pep Total Protein Albumin PTH Intact Urine WBC (Auto) Urine Creatinine 11/20/21 11/21/21 11/21/21 11:36 04:00 04:00 WBC 12.0 H RBC 2.85 L Hgb 7.8 L Hct 24.8 L MCH MCHC RDW 18.5 H Lymph % (Auto) Boundary % (Auto) Lymph # (Auto) Boundary # (Auto) Seg Neutrophils % Seg Neuts % (Manual) Lymphocytes % (Manual) Seg Neutrophils # Seg Neutrophils # Man Lymphocytes # (Manual) ABG pH ABG pO2 ABG HCO3 ABG O2 Saturation ABG Base Excess ABG Hemoglobin Sodium 133 L Potassium Chloride 95.3 L Carbon Dioxide BUN 40 H Creatinine 6.2 H Glucose 103 H POC Glucose 117 H Calcium Phosphorus Magnesium Iron TIBC Total Creatine Kinase Troponin T NT-Pro-B Natriuret Pep Total Protein Albumin PTH Intact Urine WBC (Auto) Urine Creatinine 11/21/21 11/21/21 11/22/21 11:38 18:13 00:41 WBC RBC Hgb Hct MCH MCHC RDW Lymph % (Auto) Boundary % (Auto) Lymph # (Auto) Boundary # (Auto) Seg Neutrophils % Seg Neuts % (Manual) Lymphocytes % (Manual) Seg Neutrophils # Seg Neutrophils # Man Lymphocytes # (Manual) ABG pH ABG pO2 ABG HCO3 ABG O2 Saturation ABG Base Excess ABG Hemoglobin Sodium Potassium Chloride Carbon Dioxide BUN Creatinine Glucose POC Glucose 127 H 112 H 106 H Calcium Phosphorus Magnesium Iron TIBC Total Creatine Kinase Troponin T NT-Pro-B Natriuret Pep Total Protein Albumin PTH Intact Urine WBC (Auto) Urine Creatinine 11/22/21 11/22/21 11/22/21 04:00 04:00 08:30 WBC 16.1 H 14.8 H RBC 3.01 L 2.95 L Hgb 8.1 L 7.8 L Hct 26.6 L 26.3 L MCH 27 L 27 L MCHC 31 L 30 L RDW 18.3 H 18.9 H Lymph % (Auto) 5.7 L Boundary % (Auto) 13.0 H Lymph # (Auto) 0.8 L Boundary # (Auto) 1.9 H Seg Neutrophils % 79.5 H Seg Neuts % (Manual) Lymphocytes % (Manual) Seg Neutrophils # 11.8 H Seg Neutrophils # Man Lymphocytes # (Manual) ABG pH ABG pO2 ABG HCO3 ABG O2 Saturation ABG Base Excess ABG Hemoglobin Sodium 136 L Potassium Chloride 97.6 L Carbon Dioxide BUN 35 H Creatinine 5.8 H Glucose 120 H POC Glucose Calcium Phosphorus 4.80 H D Magnesium 3.80 H Iron TIBC Total Creatine Kinase Troponin T NT-Pro-B Natriuret Pep Total Protein Albumin PTH Intact Urine WBC (Auto) Urine Creatinine 11/22/21 11/22/21 11/23/21 08:30 16:39 04:00 WBC 13.7 H RBC 2.93 L Hgb 7.8 L Hct 25.7 L MCH 27 L MCHC 30 L RDW 18.5 H Lymph % (Auto) Boundary % (Auto) Lymph # (Auto) Boundary # (Auto) Seg Neutrophils % Seg Neuts % (Manual) Lymphocytes % (Manual) Seg Neutrophils # Seg Neutrophils # Man Lymphocytes # (Manual) ABG pH ABG pO2 ABG HCO3 ABG O2 Saturation ABG Base Excess ABG Hemoglobin Sodium Potassium 5.3 H Chloride Carbon Dioxide BUN 36 H Creatinine 6.1 H Glucose 117 H POC Glucose 119 H Calcium Phosphorus Magnesium Iron TIBC Total Creatine Kinase 534 H Troponin T 0.294 H* NT-Pro-B Natriuret Pep Total Protein Albumin PTH Intact Urine WBC (Auto) Urine Creatinine 11/23/21 11/23/21 11/23/21 04:00 11:56 17:20 WBC RBC Hgb Hct MCH MCHC RDW Lymph % (Auto) Boundary % (Auto) Lymph # (Auto) Boundary # (Auto) Seg Neutrophils % Seg Neuts % (Manual) Lymphocytes % (Manual) Seg Neutrophils # Seg Neutrophils # Man Lymphocytes # (Manual) ABG pH ABG pO2 ABG HCO3 ABG O2 Saturation ABG Base Excess ABG Hemoglobin Sodium Potassium Chloride Carbon Dioxide BUN 27 H Creatinine 5.1 H Glucose 106 H POC Glucose 118 H 110 H Calcium Phosphorus Magnesium Iron TIBC Total Creatine Kinase Troponin T NT-Pro-B Natriuret Pep Total Protein Albumin PTH Intact Urine WBC (Auto) Urine Creatinine 11/24/21 11/24/21 11/24/21 04:30 04:30 05:30 WBC 14.0 H RBC 2.77 L Hgb 7.4 L Hct 24.4 L MCH 27 L MCHC 30 L RDW 18.5 H Lymph % (Auto) Boundary % (Auto) Lymph # (Auto) Boundary # (Auto) Seg Neutrophils % Seg Neuts % (Manual) Lymphocytes % (Manual) Seg Neutrophils # Seg Neutrophils # Man Lymphocytes # (Manual) ABG pH ABG pO2 ABG HCO3 ABG O2 Saturation ABG Base Excess ABG Hemoglobin Sodium Potassium Chloride 97.5 L Carbon Dioxide BUN 35 H Creatinine 6.1 H Glucose POC Glucose 107 H Calcium Phosphorus Magnesium Iron TIBC Total Creatine Kinase Troponin T NT-Pro-B Natriuret Pep Total Protein Albumin PTH Intact Urine WBC (Auto) Urine Creatinine 11/24/21 11/24/21 11/25/21 11:21 18:04 17:47 WBC RBC Hgb Hct MCH MCHC RDW Lymph % (Auto) Boundary % (Auto) Lymph # (Auto) Boundary # (Auto) Seg Neutrophils % Seg Neuts % (Manual) Lymphocytes % (Manual) Seg Neutrophils # Seg Neutrophils # Man Lymphocytes # (Manual) ABG pH ABG pO2 ABG HCO3 ABG O2 Saturation ABG Base Excess ABG Hemoglobin Sodium Potassium Chloride Carbon Dioxide BUN Creatinine Glucose POC Glucose 107 H 107 H 124 H Calcium Phosphorus Magnesium Iron TIBC Total Creatine Kinase Troponin T NT-Pro-B Natriuret Pep Total Protein Albumin PTH Intact Urine WBC (Auto) Urine Creatinine 11/25/21 11/25/21 11/25/21 23:40 23:50 23:50 WBC 14.1 H RBC 2.57 L Hgb 7.3 L Hct 22.7 L MCH MCHC RDW 17.9 H Lymph % (Auto) Boundary % (Auto) Lymph # (Auto) Boundary # (Auto) Seg Neutrophils % Seg Neuts % (Manual) Lymphocytes % (Manual) Seg Neutrophils # Seg Neutrophils # Man Lymphocytes # (Manual) ABG pH ABG pO2 ABG HCO3 ABG O2 Saturation ABG Base Excess ABG Hemoglobin Sodium Potassium Chloride Carbon Dioxide BUN 34 H Creatinine 5.5 H Glucose 117 H POC Glucose 106 H Calcium Phosphorus Magnesium 2.50 H Iron TIBC Total Creatine Kinase Troponin T NT-Pro-B Natriuret Pep Total Protein Albumin PTH Intact Urine WBC (Auto) Urine Creatinine 11/26/21 11/26/21 10:41 10:46 WBC 12.5 H RBC 2.69 L Hgb 7.2 L Hct 23.8 L MCH 27 L MCHC 30 L RDW 17.7 H Lymph % (Auto) Boundary % (Auto) Lymph # (Auto) Boundary # (Auto) Seg Neutrophils % Seg Neuts % (Manual) Lymphocytes % (Manual) Seg Neutrophils # Seg Neutrophils # Man Lymphocytes # (Manual) ABG pH ABG pO2 ABG HCO3 ABG O2 Saturation ABG Base Excess ABG Hemoglobin Sodium Potassium Chloride Carbon Dioxide BUN 42 H Creatinine 6.6 H Glucose 106 H POC Glucose Calcium Phosphorus Magnesium Iron TIBC Total Creatine Kinase Troponin T NT-Pro-B Natriuret Pep Total Protein Albumin PTH Intact Urine WBC (Auto) Urine [employer] Allied health notes reviewed: nursing
[2021-11-26] MEDS ORDERED: SODIUM CHLORIDE 0.9% 100 ML IV PRN (12:30)
--- NOTE | 2021-11-26 15:32 | Progress Note ---
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 11/12/21 06:55 Metamyelocytes # 0.6 K/mm3 11/12/21 06:55 Myelocytes # 0.0 K/mm3 11/12/21 06:55 Promyelocytes # 0.0 K/mm3 11/12/21 06:55 Blast Cells # 0.0 K/mm3 11/12/21 06:55 WBC Morphology Not Reportable 11/12/21 06:55 Hypersegmented Neuts Not Reportable 11/12/21 06:55 Hyposegmented Neuts Not Reportable 11/12/21 06:55 Hypogranular Neuts Not Reportable 11/12/21 06:55 Smudge Cells Not Reportable 11/12/21 06:55 Toxic Granulation 1+ 11/12/21 06:55 Toxic Vacuolation Not Reportable 11/12/21 06:55 Dohle Bodies Not Reportable 11/12/21 06:55 Pelger-Huet Anomaly Not Reportable 11/12/21 06:55 Lissa Rods Not Reportable 11/12/21 06:55 Platelet Estimate Consistent w auto 11/12/21 06:55 Clumped Platelets Not Reportable 11/12/21 06:55 Plt Clumps, EDTA Not Reportable 11/12/21 06:55 Large Platelets Not Reportable 11/12/21 06:55 Giant Platelets Not Reportable 11/12/21 06:55 Platelet Satelliting Not Reportable 11/12/21 06:55 Plt Morphology Comment Not Reportable 11/12/21 06:55 RBC Morphology Normal 11/12/21 06:55 Dimorphic RBCs Not Reportable 11/12/21 06:55 Polychromasia Not Reportable 11/12/21 06:55 Hypochromasia Not Reportable 11/12/21 06:55 Poikilocytosis Not Reportable 11/12/21 06:55 Anisocytosis Not Reportable 11/12/21 06:55 Microcytosis Not Reportable 11/12/21 06:55 Macrocytosis Not Reportable 11/12/21 06:55 Spherocytes Not Reportable 11/12/21 06:55 Pappenheimer Bodies Not Reportable 11/12/21 06:55 Sickle Cells Not Reportable 11/12/21 06:55 Target Cells Not Reportable 11/12/21 06:55 Tear Drop Cells Not Reportable 11/12/21 06:55 Ovalocytes Not Reportable 11/12/21 06:55 Helmet Cells Not Reportable 11/12/21 06:55 [place] Bodies Not Reportable 11/12/21 06:55 [place] Rings Not Reportable 11/12/21 06:55 Zuly Cells Not Reportable 11/12/21 06:55 Bite Cells Not Reportable 11/12/21 06:55 Crenated Cell Not Reportable 11/12/21 06:55 Elliptocytes Not Reportable 11/12/21 06:55 Acanthocytes (Spur) Not Reportable 11/12/21 06:55 Rouleaux Not Reportable 11/12/21 06:55 Hemoglobin C Crystals Not Reportable 11/12/21 06:55 Schistocytes Not Reportable 11/12/21 06:55 Malaria parasites Not Reportable 11/12/21 06:55 Nam Bodies Not Reportable 11/12/21 06:55 Hem Pathologist Commnt No 11/12/21 06:55 PT 14.4 Sec. (12.2-14.9) 11/22/21 04:00 INR 1.01 (0.87-1.13) 11/22/21 04:00 ABG pH 7.467 pH Units (7.350-7.450) H 11/18/21 04:35 ABG pCO2 37.1 mm Hg 11/18/21 04:35 ABG pO2 110.0 mm Hg (80.0-90.0) H 11/18/21 04:35 ABG HCO3 26.2 mmol/L (20.0-26.0) H 11/18/21 04:35 ABG O2 Saturation 98.1 % (95.0-99.0) 11/18/21 04:35 ABG O2 Content 11.3 (0.0-44) 11/18/21 04:35 ABG Base Excess 2.4 mmol/L (-2.0-3.0) 11/18/21 04:35 ABG Hemoglobin 8.1 gm/dl (14.0-18.0) L 11/18/21 04:35 ABG Carboxyhemoglobin 1.2 % (0.0-5.0) 11/18/21 04:35 ABG Methemoglobin 0.4 % (0.0-1.5) 11/18/21 04:35 Oxyhemoglobin 96.5 % (95.0-99.0) 11/18/21 04:35 FiO2 30 % 11/18/21 04:35 Sodium 138 mmol/L (137-145) 11/27/21 04:45 Potassium 3.9 mmol/L (3.6-5.0) 11/27/21 04:45 Chloride 98.3 mmol/L (98-107) 11/27/21 04:45 Carbon Dioxide 28 mmol/L (22-30) 11/27/21 04:45 Anion Gap 16 mmol/L 11/27/21 04:45 BUN 32 mg/dL (9-20) H 11/27/21 04:45 Creatinine 5.0 mg/dL (0.8-1.3) H 11/27/21 04:45 Estimated GFR 15 ml/min 11/27/21 04:45 BUN/Creatinine Ratio 6 % 11/27/21 04:45 Glucose 112 mg/dL (75-100) H 11/27/21 04:45 POC Glucose 105 mg/dL (70-105) 11/27/21 06:10 Hemoglobin A1c 5.7 % (4-6) 11/12/21 06:55 Lactic Acid 0.90 mmol/L (0.7-2.0) 11/11/21 19:49 Calcium 9.2 mg/dL (8.4-10.2) 11/27/21 04:45 Phosphorus 3.20 mg/dL (2.5-4.5) 11/25/21 23:50 Magnesium 2.50 mg/dL (1.7-2.3) H 11/25/21 23:50 Iron 24 ug/dL (49-181) L 11/11/21 23:29 TIBC 157 mcg/dL (250-450) L 11/11/21 23:29 Total Bilirubin 0.40 mg/dL (0.1-1.2) 11/11/21 19:49 AST 10 units/L (5-40) 11/11/21 19:49 ALT 7 units/L (7-56) 11/11/21 19:49 Alkaline Phosphatase 111 units/L (35-129) 11/11/21 19:49 Total Creatine Kinase 534 units/L (55-170) H 11/22/21 08:30 CK-MB (CK-2) 2.4 ng/mL (0.0-4.0) 11/22/21 08:30 CK-MB (CK-2) Rel Index 0.4 (0-4) 11/22/21 08:30 Troponin T 0.294 ng/mL (0.00-0.029) H* 11/22/21 08:30 NT-Pro-B Natriuret Pep 3674 pg/mL (0-900) H 11/12/21 Unknown Total Protein 9.1 g/dL (6.3-8.2) H 11/11/21 19:49 Albumin 3.0 g/dL (3.9-5) L 11/11/21 19:49 Albumin/Globulin Ratio 0.5 % 11/11/21 19:49 Triglycerides 109 mg/dL (2-149) 11/21/21 04:00 Cholesterol 146 mg/dL (50-199) 11/11/21 19:49 LDL Cholesterol Direct 85 mg/dL (50-130) 11/11/21 19:49 HDL Cholesterol 43 mg/dL (40-59) 11/11/21 19:49 Cholesterol/HDL Ratio 3.39 % 11/11/21 19:49 PTH Intact 1174 pg/mL (15-65) H 11/11/21 23:29 Urine Color Yellow (Yellow) 11/12/21 02:20 Urine Turbidity Cloudy (Clear) 11/12/21 02:20 Urine pH 5.0 (5.0-7.0) 11/12/21 02:20 Ur Specific Fate 1.013 (1.003-1.030) 11/12/21 02:20 Urine Protein >500 mg/dL (Negative) 11/12/21 02:20 Urine Glucose (UA) Neg mg/dL (Negative) 11/12/21 02:20 Urine Ketones Neg mg/dL (Negative) 11/12/21 02:20 Urine Blood Sm (Negative) 11/12/21 02:20 Urine Nitrite Neg (Negative) 11/12/21 02:20 Urine Bilirubin Neg (Negative) 11/12/21 02:20 Urine Urobilinogen < 2.0 mg/dL (<2.0) 11/12/21 02:20 Ur Leukocyte Esterase Tr (Negative) 11/12/21 02:20 Urine WBC (Auto) 12.0 /HPF (0.0-6.0) H 11/12/21 02:20 Urine RBC (Auto) 4.0 /HPF (0.0-6.0) 11/12/21 02:20 U Epithel Cells (Auto) 9.0 /HPF (0-13.0) 11/12/21 02:20 Urine Bacteria (Auto) 2+ /HPF (Negative) 11/12/21 02:20 Urine Mucus Few /HPF 11/12/21 02:20 Urine Yeast (Budding) 3+ /HPF 11/12/21 02:20 Urine Eosinophils None seen (None Seen) 11/12/21 02:20 Urine Creatinine 189.3 mg/dL (0.1-20.0) H 11/12/21 02:20 Urine Sodium 30 mmol/L 11/12/21 02:20 Coronavirus (PCR) Negative (Negative) 11/22/21 Unknown Hepatitis A IgM Ab Non-reactive (NonReactive) 03/26/22 04:45 Hep Bs Antigen Non-reactive (Negative) 11/12/21 04:45 Hep B Core IgM Ab Non-reactive (NonReactive) 11/12/21 04:45 Hepatitis C Antibody Non-reactive (NonReactive) 11/12/21 04:45 Blood Type O POSITIVE 11/22/21 04:20 Antibody Screen Negative 11/22/21 04:20 Iglesias/IV: Voiding Method Indwelling Catheter Active Medications - Current Medications Current Medications: Generic Name Dose Route Start Last Admin Trade Name Freq PRN Reason Stop Dose Admin Acetaminophen 650 mg 11/11/21 22:40 Acetaminophen 325 Mg Tab PO Q4H PRN Pain MILD(1-3)/Fever >100.5/SOTO Albumin Human 12.5 gm 11/23/21 10:00 11/25/21 15:23 Albumin Human 25% (12.5 Gm/50 Ml) Inj IV 12.5 gm LONG PRN Administration Hypotension Albuterol 2.5 mg 11/11/21 22:40 Albuterol 2.5 Mg/3 Ml Nebu IH Q3HRT PRN Shortness Of Breath Aspirin 325 mg 11/17/21 10:00 11/27/21 09:42 Aspirin 325 Mg Tab FEEDTUBE 325 mg QDAY BAO Administration Atorvastatin Calcium 40 mg 11/17/21 22:00 11/26/21 23:30 Atorvastatin 40 Mg Tab FEEDTUBE 40 mg QHS BAO Administration Dextrose 50 ml 11/18/21 13:00 Dextrose 50% In Water (25gm) 50 Ml Syringe IV Q30MIN PRN Hypoglycemia Protocol Famotidine 20 mg 11/17/21 10:00 11/27/21 09:42 Famotidine 20 Mg Tab FEEDTUBE 20 mg QDAY BAO Administration Fentanyl 50 mcg 11/11/21 20:56 11/22/21 03:45 Fentanyl 100 Mcg/2 Ml Inj IV 50 mcg Q10MIN PRN Administration ANALGESIA Hydrophilic Ointment 1 applic 11/11/21 20:56 Lip Therapy Vaseline TP Q2HR PRN Dry Lips Fentanyl Citrate 2,000 mcg in 100 mls @ 13.608 mls/hr 11/11/21 21:00 11/24/21 18:06 Fentanyl Drip Premix IV 0 mcg/kg/hr TITR BAO 0 mls/hr Titration Protocol 1 MCG/KG/HR NORepinephrine/NS 8 MG-250 ML 8 mg in 250 mls @ 3.75 mls/hr 11/11/21 23:00 11/26/21 07:33 Norepinephrine/Ns 8 Mg-250 Ml (Double Conc) IV 0 mcg/min TITRATE BAO 0 mls/hr Titration Protocol 2 MCG/MIN Vasopressin 20 unit/ Sodium 101 mls @ 9.09 mls/hr 11/23/21 12:00 11/23/21 16:17 Chloride IV 0 units/min TITR BAO 0 mls/hr Titration Protocol 0.03 UNITS/MIN Sodium Chloride 1,000 mls @ 5 mls/hr 11/23/21 13:00 11/23/21 17:26 Nacl 0.9% 1000 Ml IV 0 mls/hr DIRECT BAO Infusion Sodium Chloride 100 mls @ 999 mls/hr 11/26/21 12:30 Nacl 0.9% IV LONG PRN Hypotension Insulin Human Lispro 0 unit 11/12/21 00:00 11/27/21 06:26 Insulin Lispro 100 Unit/Ml SUB-Q Not Given Q6HR [facility] Protocol Lorazepam 2 mg 11/21/21 11:00 11/26/21 20:55 Lorazepam 2 Mg/Ml Vial IV 2 mg Q4H PRN Administration Agitation Midodrine 10 mg 11/25/21 13:00 11/27/21 09:41 Midodrine 10 Mg Tab PO 10 mg TID@0800,1200,1600 BAO Administration Multi-Ingred Cream/Lotion/Oil/Oint 1 applic 11/11/21 20:56 Mineral Oil/Petrolatum, White Ophth Oint 3.5 Gm OU Q4HR PRN Dry Eye(s) Ondansetron HCl 4 mg 11/11/21 22:40 Ondansetron 4 Mg/2 Ml Inj IV Q8H PRN Nausea And Vomiting Polyethylene Glycol 17 gm 11/27/21 10:00 Polyethylene Glycol 3350 17 Gm Powder PO QDAY PRN Constip unreliev by MOM/or NPO Senna 8.6 mg 11/17/21 10:00 11/26/21 23:30 Sennosides 8.6 Mg Tab FEEDTUBE Not Given Q12H BAO Sodium Chloride 10 ml 11/12/21 10:00 11/27/21 09:42 Sodium Chloride 0.9% 10 Ml Flush Syringe IV 10 ml BID BAO Administration Sodium Chloride 10 ml 11/11/21 22:40 Sodium Chloride 0.9% 10 Ml Flush Syringe IV PRN PRN LINE FLUSH Nutrition/Malnutrition Assess - Dietary Evaluation Nutrition/Malnutrition Findings: Nutrition Notes Start: 11/12/21 16:08 Freq: Status: Active Protocol: Document 11/21/21 12:33 TODD (Rec: 11/21/21 12:44 TODD [id number]) Nutrition Notes Initial or Follow up Reassessment Current Diagnosis Acute Kidney Injury,Diabetes, Hypertension,Respiratory Failure Other Pertinent Diagnosis Pneu Current Diet TF - Nepro at 50ml/hr Labs/Tests Na 133 BUN 40 Cr 6.2 Pertinent Medications Colace, Pepcid, Senokot, Levophed gtt, Propofol at 8. 166ml/hr (provides 216 kcal) Height 5 ft 9 in Weight 186.45 kg [place] Body Weight (kg) 72.72 BMI 60.7 Weight change and time frame Current wt obtained from bed scale Weight Status Morbidly Obese Subjective/Other Information Pt receiving HD at time of visit (11:07). Per HD nurse, pt been receiving HD almost daily; she will remove 3L of fluid today; 4L removed this past Sunday. Pt remains on vent support. Per RN, pt last BM was 11/17. Pt tolerating TF. Percent of energy/protein needs met: 100% energy 53% pro Burn Absent Trauma Absent #1 Nutrition Diagnosis Inadequate oral intake Diagnosis Progress(for reassessment Continues documentation) Is patient on ventilator? Yes Is Patient Ambulatory and/or Out of Bed No REE-([facility]-confined to bed) 3230.892 Kcal/Kg value to use for calculation 11 Approximate Energy Requirements Using 1 kcal/Kg Calculation Used for Recommendations 65-70% energy Additional Notes Energy needs: 2819-6697 kcal/ day Pro needs up to 2.5g/kg IBW: 182g/day Fluid needs 1-1.5L/day Nutrition Intervention Nutrition Support: Continue Nepro at 50ml/hr with 200ml water flush q4h. Kcal 2,160 Protein (gm) 97 Carbohydrates (gm) 193 Fat (gm) 115 Fluid (mL) 872 Fiber (gm) 15 Goal #1 TF tolerance Goal #2 TF to meet energy and pro needs as best possible Follow-Up By: 11/28/21 Additional Comments F/U: stable TF, vent status, trach/PEG placement, BM, wt, renal function
[2021-11-26] MEDS: LORazepam 2 MG/ML VIAL IV PRN (20:55)
[2021-11-27] MEDS: HALOPERIDOL LACTATE 5 MG/1 ML INJ IV SCH ×2 (00:05→06:05)
[2021-11-27] MEDS: INSULIN LISPRO 100 UNIT/ML SUB-Q SCH ×4 (00:36→17:06)
[2021-11-27 05:11] LABS: Hematocrit 24.3 % (35.5-45.6); Hemoglobin 7.4 gm/dl (11.8-15.2); Mean Corpuscular HGB Conc 30 % (32-34); Mean Corpuscular Volume 88 fl (84-94); Platelet Count 305 K/mm3 (140-440); Red Blood Count 2.75 M/mm3 (3.65-5.03)
[2021-11-27 05:14] LABS: Calcium 9.2 mg/dL (8.4-10.2)
--- NOTE | 2021-11-27 07:44 | Progress Note ---
Assessment and Plan 56 y/o morbidly obese male with acute respiratory failure, requiring intubation and now in acute renal failure and in need of HD 11/27/21: Daily PSV trials. HD per renal. LTACH next week. Stopped Haldol today. 11/26/21: Can likely stop haldol today as delirium seems to be stablized. LTACH next week. 11/25/21: Continue scheduled haldol. Ok if renal wants to dialyze but would consider only cleaning and not fluid removal as pulm status is stable. LTACH placement 11/24/21: Start scheduled haldol and see if we can wean sedation of. Hold on HD today. LTACH. 11/23/21: Successful trach and peg on yesterday. HD today, post HD start weaning trials. Will need LTACH. Will ask renal about Permcath placement 11/22/21: Follow up post op. Will need LTACH. HD per renal, need to ask them if he will need permacath as well. 11/21/21: Reviewed Gen Surg note. Will reach out to them for further discussion. Continue aggressive volume removal. Wean Pressors as tolerated. 11/18/21: Await Gen Surg comments as they were checking on OR supplies. If not able to, will start working on transfer as patient will need trach given current clinical state. HD per renal. Wean pressors as tolerated. Guarded to poor prognosis. 11/17/21: Follow up Gen Surge eval, they are checking to see the materials they have in OR. Reviewed neck ultrasound, per their read trachea is only about an 1inch away from the skin. Shocking given his neck size but given the difficulty in intubation and his entrance being anterior, this makes sense. Will defer to surgery call but have no problem with calling for transfer as well. Wean Pressors as tolerated. HD per renal. Continue sedation for RASS of 0. Guarded to poor prognosis. 11/16/21: Given patient body habitus, difficult airway and likely no improvement in current clinical state, will need trach. However given his neck size, I would suggest this be done by ENT as I am not even sure that the [place] XLT is long enough. Ok to consult surgery here but I suggest seeking transfer to a tertiary care facility with ENT to attempt this. Also suggest obtaining neck CT to further evaluate total neck anatomy that way if we need to send this over prior to acceptance we can. Guarded prognosis but mental status is intact. HD per renal. 11/15/21: stop sedation. Attempt PSV. Bipap PRN and QHS. Hopeful extubation today. HD per renal. 11/14/21: Wean PEEP again today and attempt PSV trial. If passes will attempt extubation. HD per renal 11/13/21: HD per renal. No PSV trials today. Wean PEEP after HD. Guarded prognosis. 1. Obtain ABG 2. Place Iglesias catheter 3. Wean Pressors for maps greater than 65 4. Insulin, D50 for Hyperkalemia, and HD per renal 5. Stopped scheduled duonebs 6. Stopped abx 7. Obtain BNP with morning labs 8. Guarded prognosis. CCT 31 minutes. Subjective Date of service: 11/27/21 Principal diagnosis: Acute respiratory failure, Interval history: No acute events. Awake and alert. Still on PRVC. Did PSV for several hours yesterday. Objective Vital Signs - 12hr 11/26/21 11/26/21 11/26/21 19:45 19:56 20:00 Temperature 97.9 F Pulse Rate 86 85 82 Pulse Rate [ 84 From Monitor] Respiratory 24 21 Rate Blood Pressure 124/60 124/60 112/66 O2 Sat by Pulse 95 100 100 Oximetry O2 Sat by Pulse Oximetry [ Anterior Bilateral Throughout] 11/26/21 11/26/21 11/26/21 20:15 20:30 20:45 Temperature Pulse Rate 84 82 83 Pulse Rate [ From Monitor] Respiratory 20 20 20 Rate Blood Pressure 124/70 107/55 130/77 O2 Sat by Pulse 98 96 98 Oximetry O2 Sat by Pulse Oximetry [ Anterior Bilateral Throughout] 11/26/21 11/26/21 11/26/21 21:00 21:15 21:30 Temperature Pulse Rate 88 92 H 99 H Pulse Rate [ From Monitor] Respiratory 20 16 23 Rate Blood Pressure 134/76 138/80 117/81 O2 Sat by Pulse 100 99 98 Oximetry O2 Sat by Pulse Oximetry [ Anterior Bilateral Throughout] 11/26/21 11/26/21 11/26/21 21:45 22:00 22:15 Temperature Pulse Rate 99 H 97 H 101 H Pulse Rate [ From Monitor] Respiratory 23 20 Rate Blood Pressure 117/81 130/77 103/71 O2 Sat by Pulse 100 100 Oximetry O2 Sat by Pulse Oximetry [ Anterior Bilateral Throughout] 11/26/21 11/26/21 11/26/21 22:30 22:45 23:00 Temperature 98.2 F Pulse Rate 104 H 125 H 99 H Pulse Rate [ From Monitor] Respiratory 24 21 14 Rate Blood Pressure 103/71 138/71 138/71 O2 Sat by Pulse 100 97 Oximetry O2 Sat by Pulse 99 Oximetry [ Anterior Bilateral Throughout] 11/26/21 11/26/21 11/27/21 23:30 23:56 00:00 Temperature 98.5 F Pulse Rate 96 H 94 H 87 Pulse Rate [ 95 H From Monitor] Respiratory 17 18 20 Rate Blood Pressure 149/89 134/65 139/70 O2 Sat by Pulse 99 99 100 Oximetry O2 Sat by Pulse Oximetry [ Anterior Bilateral Throughout] 11/27/21 11/27/21 11/27/21 00:30 01:00 01:30 Temperature Pulse Rate 93 H 93 H 89 Pulse Rate [ From Monitor] Respiratory 17 19 20 Rate Blood Pressure 141/70 145/91 139/70 O2 Sat by Pulse 98 98 96 Oximetry O2 Sat by Pulse Oximetry [ Anterior Bilateral Throughout] 11/27/21 11/27/21 11/27/21 02:00 02:30 03:00 Temperature Pulse Rate 98 H 98 H 93 H Pulse Rate [ From Monitor] Respiratory 17 16 18 Rate Blood Pressure 139/70 132/74 147/78 O2 Sat by Pulse 96 98 99 Oximetry O2 Sat by Pulse Oximetry [ Anterior Bilateral Throughout] 11/27/21 11/27/21 11/27/21 03:30 04:00 04:30 Temperature 98.3 F Pulse Rate 90 93 H 100 H Pulse Rate [ 93 H From Monitor] Respiratory 19 20 23 Rate Blood Pressure 147/78 120/66 149/77 O2 Sat by Pulse 99 95 97 Oximetry O2 Sat by Pulse Oximetry [ Anterior Bilateral Throughout] 11/27/21 11/27/21 11/27/21 05:00 05:30 06:00 Temperature Pulse Rate 107 H 101 H 100 H Pulse Rate [ From Monitor] Respiratory 20 20 21 Rate Blood Pressure 113/55 113/55 120/66 O2 Sat by Pulse 98 96 99 Oximetry O2 Sat by Pulse Oximetry [ Anterior Bilateral Throughout] Constitutional: comatose Eyes: non-icteric ENT: other (orally intubated and sedated) Neck: supple, other (large in circumference) Effort: normal Ascultation: Bilateral: diminished breath sounds Cardiovascular: regular rate and rhythm Gastrointestinal: normoactive bowel sounds Extremities: edema, anasarca Neurologic: unable to assess CBC and BMP: 11/27/21 04:45 11/27/21 04:45 ABG, PT/INR, D-dimer: ABG ABG pH 7.467 pH Units (7.350-7.450) H 11/18/21 04:35 ABG pCO2 37.1 mm Hg 11/18/21 04:35 ABG pO2 110.0 mm Hg (80.0-90.0) H 11/18/21 04:35 ABG O2 Saturation 98.1 % (95.0-99.0) 11/18/21 04:35 PT/INR, D-dimer PT 14.4 Sec. (12.2-14.9) 11/22/21 04:00 INR 1.01 (0.87-1.13) 11/22/21 04:00 Abnormal lab findings: Abnormal Labs 11/11/21 11/11/21 11/11/21 19:49 19:49 23:29 WBC 11.5 H RBC Hgb 10.1 L Hct 34.8 L MCH 27 L MCHC 29 L RDW 20.1 H Lymph % (Auto) 10.0 L [place] % (Auto) 8.8 H Lymph # (Auto) 1.1 L [place] # (Auto) 1.0 H Seg Neutrophils % 79.8 H Seg Neuts % (Manual) Lymphocytes % (Manual) Seg Neutrophils # 9.2 H Seg Neutrophils # Man Lymphocytes # (Manual) ABG pH ABG pO2 ABG HCO3 ABG O2 Saturation ABG Base Excess ABG Hemoglobin Sodium Potassium 7.6 H* Chloride 107.8 H Carbon Dioxide 13 L BUN 107 H Creatinine 13.8 H Glucose POC Glucose Calcium 7.5 L Phosphorus Magnesium Iron TIBC Total Creatine Kinase 268 H Troponin T 0.324 H* NT-Pro-B Natriuret Pep Total Protein 9.1 H Albumin 3.0 L PTH Intact Urine WBC (Auto) Urine Creatinine 11/11/21 11/11/21 11/12/21 23:29 23:29 02:20 WBC RBC Hgb Hct MCH MCHC RDW Lymph % (Auto) [place] % (Auto) Lymph # (Auto) [place] # (Auto) Seg Neutrophils % Seg Neuts % (Manual) Lymphocytes % (Manual) Seg Neutrophils # Seg Neutrophils # Man Lymphocytes # (Manual) ABG pH ABG pO2 ABG HCO3 ABG O2 Saturation ABG Base Excess ABG Hemoglobin Sodium Potassium Chloride Carbon Dioxide BUN Creatinine Glucose POC Glucose Calcium Phosphorus Magnesium Iron 24 L TIBC 157 L Total Creatine Kinase Troponin T NT-Pro-B Natriuret Pep Total Protein Albumin PTH Intact 1174 H Urine WBC (Auto) Urine Creatinine 189.3 H 11/12/21 11/12/21 11/12/21 02:20 02:28 06:55 WBC 20.5 H RBC 3.54 L Hgb 9.4 L Hct 32.3 L MCH 27 L MCHC 29 L RDW 20.0 H Lymph % (Auto) [place] % (Auto) Lymph # (Auto) [place] # (Auto) Seg Neutrophils % Seg Neuts % (Manual) 89.0 H Lymphocytes % (Manual) 0 L Seg Neutrophils # Seg Neutrophils # Man 18.2 H Lymphocytes # (Manual) 0.0 L ABG pH 7.172 L* ABG pO2 100.6 H ABG HCO3 17.4 L ABG O2 Saturation ABG Base Excess -10.6 L ABG Hemoglobin 9.4 L Sodium Potassium Chloride Carbon Dioxide BUN Creatinine Glucose POC Glucose Calcium Phosphorus Magnesium Iron TIBC Total Creatine Kinase Troponin T NT-Pro-B Natriuret Pep Total Protein Albumin PTH Intact Urine WBC (Auto) 12.0 H Urine Creatinine 11/12/21 11/12/21 11/12/21 06:55 09:10 12:01 WBC RBC Hgb Hct MCH MCHC RDW Lymph % (Auto) [place] % (Auto) Lymph # (Auto) [place] # (Auto) Seg Neutrophils % Seg Neuts % (Manual) Lymphocytes % (Manual) Seg Neutrophils # Seg Neutrophils # Man Lymphocytes # (Manual) ABG pH 7.296 L ABG pO2 237.3 H ABG HCO3 ABG O2 Saturation 99.3 H ABG Base Excess -6.0 L ABG Hemoglobin 8.8 L Sodium Potassium 5.5 H D Chloride 107.1 H Carbon Dioxide 19 L BUN 78 H Creatinine 9.4 H Glucose 119 H POC Glucose 106 H Calcium 8.1 L Phosphorus Magnesium Iron TIBC Total Creatine Kinase Troponin T NT-Pro-B Natriuret Pep Total Protein Albumin PTH Intact Urine WBC (Auto) Urine Creatinine 11/12/21 11/12/21 11/12/21 16:46 16:46 22:30 WBC RBC Hgb Hct MCH MCHC RDW Lymph % (Auto) [place] % (Auto) Lymph # (Auto) [place] # (Auto) Seg Neutrophils % Seg Neuts % (Manual) Lymphocytes % (Manual) Seg Neutrophils # Seg Neutrophils # Man Lymphocytes # (Manual) ABG pH ABG pO2 ABG HCO3 ABG O2 Saturation ABG Base Excess ABG Hemoglobin Sodium 146 H Potassium Chloride 108.2 H Carbon Dioxide 21 L BUN 66 H Creatinine 9.8 H Glucose 125 H POC Glucose Calcium 7.8 L Phosphorus Magnesium Iron TIBC Total Creatine Kinase Troponin T 0.319 H* 0.313 H* NT-Pro-B Natriuret Pep Total Protein Albumin PTH Intact Urine WBC (Auto) Urine Creatinine 11/12/21 11/12/21 11/13/21 23:18 Unknown 04:00 WBC 17.2 H RBC 3.09 L Hgb 8.4 L Hct 27.5 L MCH 27 L MCHC 30 L RDW 19.6 H Lymph % (Auto) [place] % (Auto) Lymph # (Auto) [place] # (Auto) Seg Neutrophils % Seg Neuts % (Manual) Lymphocytes % (Manual) Seg Neutrophils # Seg Neutrophils # Man Lymphocytes # (Manual) ABG pH ABG pO2 ABG HCO3 ABG O2 Saturation ABG Base Excess ABG Hemoglobin Sodium Potassium Chloride Carbon Dioxide BUN Creatinine Glucose POC Glucose 120 H Calcium Phosphorus Magnesium Iron TIBC Total Creatine Kinase Troponin T NT-Pro-B Natriuret Pep 3674 H Total Protein Albumin PTH Intact Urine WBC (Auto) Urine Creatinine 11/13/21 11/13/21 11/13/21 04:00 04:00 05:23 WBC RBC Hgb Hct MCH MCHC RDW Lymph % (Auto) [place] % (Auto) Lymph # (Auto) [place] # (Auto) Seg Neutrophils % Seg Neuts % (Manual) Lymphocytes % (Manual) Seg Neutrophils # Seg Neutrophils # Man Lymphocytes # (Manual) ABG pH 7.274 L ABG pO2 93.2 H ABG HCO3 ABG O2 Saturation ABG Base Excess -3.9 L ABG Hemoglobin 8.2 L Sodium Potassium Chloride Carbon Dioxide 21 L BUN 71 H Creatinine 9.9 H Glucose 128 H POC Glucose 117 H Calcium 7.7 L Phosphorus 5.10 H Magnesium 1.60 L Iron TIBC Total Creatine Kinase Troponin T NT-Pro-B Natriuret Pep Total Protein Albumin PTH Intact Urine WBC (Auto) Urine Creatinine 11/13/21 11/13/21 11/14/21 16:20 23:31 04:10 WBC RBC Hgb Hct MCH MCHC RDW Lymph % (Auto) [place] % (Auto) Lymph # (Auto) [place] # (Auto) Seg Neutrophils % Seg Neuts % (Manual) Lymphocytes % (Manual) Seg Neutrophils # Seg Neutrophils # Man Lymphocytes # (Manual) ABG pH ABG pO2 107.1 H ABG HCO3 ABG O2 Saturation ABG Base Excess ABG Hemoglobin 6.5 L Sodium Potassium Chloride Carbon Dioxide BUN Creatinine Glucose POC Glucose 125 H 123 H Calcium Phosphorus Magnesium Iron TIBC Total Creatine Kinase Troponin T NT-Pro-B Natriuret Pep Total Protein Albumin PTH Intact Urine WBC (Auto) Urine Creatinine 11/14/21 11/14/21 11/14/21 06:30 06:30 15:00 WBC 11.2 H RBC 3.03 L Hgb 8.1 L Hct 26.6 L MCH 27 L MCHC 30 L RDW 19.3 H Lymph % (Auto) [place] % (Auto) Lymph # (Auto) [place] # (Auto) Seg Neutrophils % Seg Neuts % (Manual) Lymphocytes % (Manual) Seg Neutrophils # Seg Neutrophils # Man Lymphocytes # (Manual) ABG pH ABG pO2 ABG HCO3 ABG O2 Saturation ABG Base Excess ABG Hemoglobin Sodium Potassium 3.0 L D 3.4 L Chloride Carbon Dioxide BUN 41 H Creatinine 7.0 H Glucose 107 H POC Glucose Calcium 7.5 L Phosphorus Magnesium 1.60 L Iron TIBC Total Creatine Kinase Troponin T NT-Pro-B Natriuret Pep Total Protein Albumin PTH Intact Urine WBC (Auto) Urine Creatinine 11/14/21 11/15/21 11/15/21 17:24 04:00 04:00 WBC 11.3 H RBC 3.00 L Hgb 8.1 L Hct 26.3 L MCH 27 L MCHC 31 L RDW 19.2 H Lymph % (Auto) [place] % (Auto) Lymph # (Auto) [place] # (Auto) Seg Neutrophils % Seg Neuts % (Manual) Lymphocytes % (Manual) Seg Neutrophils # Seg Neutrophils # Man Lymphocytes # (Manual) ABG pH ABG pO2 ABG HCO3 ABG O2 Saturation ABG Base Excess ABG Hemoglobin Sodium Potassium 3.4 L Chloride Carbon Dioxide BUN 32 H Creatinine 5.9 H Glucose 117 H POC Glucose 124 H Calcium 8.3 L Phosphorus Magnesium Iron TIBC Total Creatine Kinase Troponin T NT-Pro-B Natriuret Pep Total Protein Albumin PTH Intact Urine WBC (Auto) Urine Creatinine 11/15/21 11/15/21 11/16/21 13:58 16:20 04:00 WBC 13.2 H RBC 2.88 L Hgb 7.8 L Hct 25.2 L MCH 27 L MCHC 31 L RDW 19.1 H Lymph % (Auto) [place] % (Auto) Lymph # (Auto) [place] # (Auto) Seg Neutrophils % Seg Neuts % (Manual) Lymphocytes % (Manual) Seg Neutrophils # Seg Neutrophils # Man Lymphocytes # (Manual) ABG pH 7.335 L ABG pO2 254.0 H ABG HCO3 26.2 H ABG O2 Saturation 99.4 H ABG Base Excess ABG Hemoglobin 8.5 L Sodium Potassium Chloride Carbon Dioxide BUN Creatinine Glucose POC Glucose 132 H Calcium Phosphorus Magnesium Iron TIBC Total Creatine Kinase Troponin T NT-Pro-B Natriuret Pep Total Protein Albumin PTH Intact Urine WBC (Auto) Urine Creatinine 11/16/21 11/16/21 11/16/21 04:00 04:05 11:06 WBC RBC Hgb Hct MCH MCHC RDW Lymph % (Auto) [place] % (Auto) Lymph # (Auto) [place] # (Auto) Seg Neutrophils % Seg Neuts % (Manual) Lymphocytes % (Manual) Seg Neutrophils # Seg Neutrophils # Man Lymphocytes # (Manual) ABG pH ABG pO2 115.6 H ABG HCO3 ABG O2 Saturation ABG Base Excess ABG Hemoglobin 8.1 L Sodium Potassium Chloride Carbon Dioxide BUN 44 H Creatinine 7.7 H Glucose 104 H POC Glucose 106 H Calcium 7.9 L Phosphorus Magnesium Iron TIBC Total Creatine Kinase Troponin T NT-Pro-B Natriuret Pep Total Protein Albumin PTH Intact Urine WBC (Auto) Urine Creatinine 11/16/21 11/16/21 11/17/21 18:05 23:51 04:15 WBC 11.8 H RBC 3.02 L Hgb 8.1 L Hct 26.9 L MCH 27 L MCHC 30 L RDW 18.9 H Lymph % (Auto) [place] % (Auto) Lymph # (Auto) [place] # (Auto) Seg Neutrophils % Seg Neuts % (Manual) Lymphocytes % (Manual) Seg Neutrophils # Seg Neutrophils # Man Lymphocytes # (Manual) ABG pH ABG pO2 ABG HCO3 ABG O2 Saturation ABG Base Excess ABG Hemoglobin Sodium Potassium Chloride Carbon Dioxide BUN Creatinine Glucose POC Glucose 109 H 118 H Calcium Phosphorus Magnesium Iron TIBC Total Creatine Kinase Troponin T NT-Pro-B Natriuret Pep Total Protein Albumin PTH Intact Urine WBC (Auto) Urine Creatinine 11/17/21 11/17/21 11/17/21 04:15 04:25 11:25 WBC RBC Hgb Hct MCH MCHC RDW Lymph % (Auto) [place] % (Auto) Lymph # (Auto) [place] # (Auto) Seg Neutrophils % Seg Neuts % (Manual) Lymphocytes % (Manual) Seg Neutrophils # Seg Neutrophils # Man Lymphocytes # (Manual) ABG pH ABG pO2 153.8 H ABG HCO3 ABG O2 Saturation ABG Base Excess ABG Hemoglobin 8.3 L Sodium Potassium Chloride Carbon Dioxide BUN 33 H Creatinine 6.2 H Glucose 118 H POC Glucose 108 H Calcium Phosphorus Magnesium Iron TIBC Total Creatine Kinase Troponin T NT-Pro-B Natriuret Pep Total Protein Albumin PTH Intact Urine WBC (Auto) Urine Creatinine 11/18/21 11/18/21 11/18/21 04:00 04:00 04:35 WBC RBC 2.88 L Hgb 7.8 L Hct 25.3 L MCH 27 L MCHC 31 L RDW 18.7 H Lymph % (Auto) [place] % (Auto) Lymph # (Auto) [place] # (Auto) Seg Neutrophils % Seg Neuts % (Manual) Lymphocytes % (Manual) Seg Neutrophils # Seg Neutrophils # Man Lymphocytes # (Manual) ABG pH 7.467 H ABG pO2 110.0 H ABG HCO3 26.2 H ABG O2 Saturation ABG Base Excess ABG Hemoglobin 8.1 L Sodium Potassium Chloride Carbon Dioxide BUN 28 H Creatinine 5.5 H Glucose POC Glucose Calcium Phosphorus Magnesium Iron TIBC Total Creatine Kinase Troponin T NT-Pro-B Natriuret Pep Total Protein Albumin PTH Intact Urine WBC (Auto) Urine Creatinine 11/18/21 11/19/21 11/19/21 11:50 04:00 11:30 WBC RBC Hgb Hct MCH MCHC RDW Lymph % (Auto) [place] % (Auto) Lymph # (Auto) [place] # (Auto) Seg Neutrophils % Seg Neuts % (Manual) Lymphocytes % (Manual) Seg Neutrophils # Seg Neutrophils # Man Lymphocytes # (Manual) ABG pH ABG pO2 ABG HCO3 ABG O2 Saturation ABG Base Excess ABG Hemoglobin Sodium Potassium Chloride Carbon Dioxide BUN 26 H Creatinine 4.7 H Glucose 110 H POC Glucose 131 H 106 H Calcium Phosphorus Magnesium Iron TIBC Total Creatine Kinase Troponin T NT-Pro-B Natriuret Pep Total Protein Albumin PTH Intact Urine WBC (Auto) Urine Creatinine 11/19/21 11/20/21 11/20/21 17:09 00:14 04:00 WBC RBC Hgb Hct MCH MCHC RDW Lymph % (Auto) [place] % (Auto) Lymph # (Auto) [place] # (Auto) Seg Neutrophils % Seg Neuts % (Manual) Lymphocytes % (Manual) Seg Neutrophils # Seg Neutrophils # Man Lymphocytes # (Manual) ABG pH ABG pO2 ABG HCO3 ABG O2 Saturation ABG Base Excess ABG Hemoglobin Sodium 134 L Potassium Chloride 94.4 L Carbon Dioxide BUN 25 H Creatinine 4.6 H Glucose 117 H POC Glucose 129 H 115 H Calcium Phosphorus Magnesium Iron TIBC Total Creatine Kinase Troponin T NT-Pro-B Natriuret Pep Total Protein Albumin PTH Intact Urine WBC (Auto) Urine Creatinine 11/20/21 11/21/21 11/21/21 11:36 04:00 04:00 WBC 12.0 H RBC 2.85 L Hgb 7.8 L Hct 24.8 L MCH MCHC RDW 18.5 H Lymph % (Auto) [place] % (Auto) Lymph # (Auto) [place] # (Auto) Seg Neutrophils % Seg Neuts % (Manual) Lymphocytes % (Manual) Seg Neutrophils # Seg Neutrophils # Man Lymphocytes # (Manual) ABG pH ABG pO2 ABG HCO3 ABG O2 Saturation ABG Base Excess ABG Hemoglobin Sodium 133 L Potassium Chloride 95.3 L Carbon Dioxide BUN 40 H Creatinine 6.2 H Glucose 103 H POC Glucose 117 H Calcium Phosphorus Magnesium Iron TIBC Total Creatine Kinase Troponin T NT-Pro-B Natriuret Pep Total Protein Albumin PTH Intact Urine WBC (Auto) Urine Creatinine 11/21/21 11/21/21 11/22/21 11:38 18:13 00:41 WBC RBC Hgb Hct MCH MCHC RDW Lymph % (Auto) [place] % (Auto) Lymph # (Auto) [place] # (Auto) Seg Neutrophils % Seg Neuts % (Manual) Lymphocytes % (Manual) Seg Neutrophils # Seg Neutrophils # Man Lymphocytes # (Manual) ABG pH ABG pO2 ABG HCO3 ABG O2 Saturation ABG Base Excess ABG Hemoglobin Sodium Potassium Chloride Carbon Dioxide BUN Creatinine Glucose POC Glucose 127 H 112 H 106 H Calcium Phosphorus Magnesium Iron TIBC Total Creatine Kinase Troponin T NT-Pro-B Natriuret Pep Total Protein Albumin PTH Intact Urine WBC (Auto) Urine Creatinine 11/22/21 11/22/21 11/22/21 04:00 04:00 08:30 WBC 16.1 H 14.8 H RBC 3.01 L 2.95 L Hgb 8.1 L 7.8 L Hct 26.6 L 26.3 L MCH 27 L 27 L MCHC 31 L 30 L RDW 18.3 H 18.9 H Lymph % (Auto) 5.7 L [place] % (Auto) 13.0 H Lymph # (Auto) 0.8 L [place] # (Auto) 1.9 H Seg Neutrophils % 79.5 H Seg Neuts % (Manual) Lymphocytes % (Manual) Seg Neutrophils # 11.8 H Seg Neutrophils # Man Lymphocytes # (Manual) ABG pH ABG pO2 ABG HCO3 ABG O2 Saturation ABG Base Excess ABG Hemoglobin Sodium 136 L Potassium Chloride 97.6 L Carbon Dioxide BUN 35 H Creatinine 5.8 H Glucose 120 H POC Glucose Calcium Phosphorus 4.80 H D Magnesium 3.80 H Iron TIBC Total Creatine Kinase Troponin T NT-Pro-B Natriuret Pep Total Protein Albumin PTH Intact Urine WBC (Auto) Urine Creatinine 11/22/21 11/22/21 11/23/21 08:30 16:39 04:00 WBC 13.7 H RBC 2.93 L Hgb 7.8 L Hct 25.7 L MCH 27 L MCHC 30 L RDW 18.5 H Lymph % (Auto) [place] % (Auto) Lymph # (Auto) [place] # (Auto) Seg Neutrophils % Seg Neuts % (Manual) Lymphocytes % (Manual) Seg Neutrophils # Seg Neutrophils # Man Lymphocytes # (Manual) ABG pH ABG pO2 ABG HCO3 ABG O2 Saturation ABG Base Excess ABG Hemoglobin Sodium Potassium 5.3 H Chloride Carbon Dioxide BUN 36 H Creatinine 6.1 H Glucose 117 H POC Glucose 119 H Calcium Phosphorus Magnesium Iron TIBC Total Creatine Kinase 534 H Troponin T 0.294 H* NT-Pro-B Natriuret Pep Total Protein Albumin PTH Intact Urine WBC (Auto) Urine Creatinine 11/23/21 11/23/21 11/23/21 04:00 11:56 17:20 WBC RBC Hgb Hct MCH MCHC RDW Lymph % (Auto) [place] % (Auto) Lymph # (Auto) [place] # (Auto) Seg Neutrophils % Seg Neuts % (Manual) Lymphocytes % (Manual) Seg Neutrophils # Seg Neutrophils # Man Lymphocytes # (Manual) ABG pH ABG pO2 ABG HCO3 ABG O2 Saturation ABG Base Excess ABG Hemoglobin Sodium Potassium Chloride Carbon Dioxide BUN 27 H Creatinine 5.1 H Glucose 106 H POC Glucose 118 H 110 H Calcium Phosphorus Magnesium Iron TIBC Total Creatine Kinase Troponin T NT-Pro-B Natriuret Pep Total Protein Albumin PTH Intact Urine WBC (Auto) Urine Creatinine 11/24/21 11/24/21 11/24/21 04:30 04:30 05:30 WBC 14.0 H RBC 2.77 L Hgb 7.4 L Hct 24.4 L MCH 27 L MCHC 30 L RDW 18.5 H Lymph % (Auto) [place] % (Auto) Lymph # (Auto) [place] # (Auto) Seg Neutrophils % Seg Neuts % (Manual) Lymphocytes % (Manual) Seg Neutrophils # Seg Neutrophils # Man Lymphocytes # (Manual) ABG pH ABG pO2 ABG HCO3 ABG O2 Saturation ABG Base Excess ABG Hemoglobin Sodium Potassium Chloride 97.5 L Carbon Dioxide BUN 35 H Creatinine 6.1 H Glucose POC Glucose 107 H Calcium Phosphorus Magnesium Iron TIBC Total Creatine Kinase Troponin T NT-Pro-B Natriuret Pep Total Protein Albumin PTH Intact Urine WBC (Auto) Urine Creatinine 11/24/21 11/24/21 11/25/21 11:21 18:04 17:47 WBC RBC Hgb Hct MCH MCHC RDW Lymph % (Auto) [place] % (Auto) Lymph # (Auto) [place] # (Auto) Seg Neutrophils % Seg Neuts % (Manual) Lymphocytes % (Manual) Seg Neutrophils # Seg Neutrophils # Man Lymphocytes # (Manual) ABG pH ABG pO2 ABG HCO3 ABG O2 Saturation ABG Base Excess ABG Hemoglobin Sodium Potassium Chloride Carbon Dioxide BUN Creatinine Glucose POC Glucose 107 H 107 H 124 H Calcium Phosphorus Magnesium Iron TIBC Total Creatine Kinase Troponin T NT-Pro-B Natriuret Pep Total Protein Albumin PTH Intact Urine WBC (Auto) Urine Creatinine 11/25/21 11/25/2111/25/22 23:40 23:50 23:50 WBC 14.1 H RBC 2.57 L Hgb 7.3 L Hct 22.7 L MCH MCHC RDW 17.9 H Lymph % (Auto) [place] % (Auto) Lymph # (Auto) [place] # (Auto) Seg Neutrophils % Seg Neuts % (Manual) Lymphocytes % (Manual) Seg Neutrophils # Seg Neutrophils # Man Lymphocytes # (Manual) ABG pH ABG pO2 ABG HCO3 ABG O2 Saturation ABG Base Excess ABG Hemoglobin Sodium Potassium Chloride Carbon Dioxide BUN 34 H Creatinine 5.5 H Glucose 117 H POC Glucose 106 H Calcium Phosphorus Magnesium 2.50 H Iron TIBC Total Creatine Kinase Troponin T NT-Pro-B Natriuret Pep Total Protein Albumin PTH Intact Urine WBC (Auto) Urine Creatinine 11/26/21 11/26/21 11/26/21 10:41 10:46 17:28 WBC 12.5 H RBC 2.69 L Hgb 7.2 L Hct 23.8 L MCH 27 L MCHC 30 L RDW 17.7 H Lymph % (Auto) [place] % (Auto) Lymph # (Auto) [place] # (Auto) Seg Neutrophils % Seg Neuts % (Manual) Lymphocytes % (Manual) Seg Neutrophils # Seg Neutrophils # Man Lymphocytes # (Manual) ABG pH ABG pO2 ABG HCO3 ABG O2 Saturation ABG Base Excess ABG Hemoglobin Sodium Potassium Chloride Carbon Dioxide BUN 42 H Creatinine 6.6 H Glucose 106 H POC Glucose 112 H Calcium Phosphorus Magnesium Iron TIBC Total Creatine Kinase Troponin T NT-Pro-B Natriuret Pep Total Protein Albumin PTH Intact Urine WBC (Auto) Urine Creatinine 11/27/21 11/27/21 04:45 04:45 WBC 12.4 H RBC 2.75 L Hgb 7.4 L Hct 24.3 L MCH 27 L MCHC 30 L RDW 18.0 H Lymph % (Auto) [place] % (Auto) Lymph # (Auto) [place] # (Auto) Seg Neutrophils % Seg Neuts % (Manual) Lymphocytes % (Manual) Seg Neutrophils # Seg Neutrophils # Man Lymphocytes # (Manual) ABG pH ABG pO2 ABG HCO3 ABG O2 Saturation ABG Base Excess ABG Hemoglobin Sodium Potassium Chloride Carbon Dioxide BUN 32 H Creatinine 5.0 H Glucose 112 H POC Glucose Calcium Phosphorus Magnesium Iron TIBC Total Creatine Kinase Troponin T NT-Pro-B Natriuret Pep Total Protein Albumin PTH Intact Urine WBC (Auto) Urine Creatinine Allied health notes reviewed: nursing
[2021-11-27] MEDS: MIDODRINE 10 MG TAB PO SCH ×3 (09:41→16:57)
[2021-11-27] MEDS: FAMOTIDINE 20 MG TAB FEEDTUBE SCH (09:42)
[2021-11-27] MEDS: ASPIRIN 325 MG TAB FEEDTUBE SCH (09:42)
[2021-11-27] MEDS ORDERED: POLYETHYLENE GLYCOL 3350 17 GM POWDER PO PRN (10:00)
--- NOTE | 2021-11-27 11:35 | Progress Note ---
Assessment and Plan Acute respiratory failure Pneumonia Hypoxia KD (acute kidney injury) on top of CKD Hyperkalemia Diabetes Elevated troponin Hypertension Obesity Acidosis Plan -s/p HD yesterday, no HD today, HD tomorrow. -Trached on Vent, In ICU -will assess HD needs daily -Renal ultrasound- Left kidney no visualized. No hydronephrosis to right kidney -Renally dose all medications -Obtain daily weights -Monitor I/O's daily -Assess dialysis needs daily Subjective Date of service: 11/27/21 Principal diagnosis: Acute respiratory failure, Interval history: trached on Vent. s/p HD yesterday. Objective - Exam Narrative Exam: General appearance: trached Eyes: non-icteric ENT: other (trached and sedated) Neck: supple, other (large in circumference) Effort: normal Ascultation: Bilateral: diminished breath sounds Cardiovascular: regular rate and rhythm Gastrointestinal: normoactive bowel sounds Extremities: edema, anasarca unable to assess - Vital Signs Vital signs: Vital Signs - 12hr 11/26/21 11/27/21 11/27/21 23:56 00:00 00:30 Temperature 98.5 F Pulse Rate 94 H 87 93 H Pulse Rate [ 95 H From Monitor] Respiratory 18 20 17 Rate Blood Pressure 134/65 139/70 141/70 O2 Sat by Pulse 99 100 98 Oximetry O2 Sat by Pulse Oximetry [ Assessment] 11/27/21 11/27/21 11/27/21 01:00 01:30 02:00 Temperature Pulse Rate 93 H 89 98 H Pulse Rate [ From Monitor] Respiratory 19 20 17 Rate Blood Pressure 145/91 139/70 139/70 O2 Sat by Pulse 98 96 96 Oximetry O2 Sat by Pulse Oximetry [ Assessment] 11/27/21 11/27/21 11/27/21 02:30 03:00 03:30 Temperature Pulse Rate 98 H 93 H 90 Pulse Rate [ From Monitor] Respiratory 16 18 19 Rate Blood Pressure 132/74 147/78 147/78 O2 Sat by Pulse 98 99 99 Oximetry O2 Sat by Pulse Oximetry [ Assessment] 11/27/21 11/27/21 11/27/21 04:00 04:30 05:00 Temperature 98.3 F Pulse Rate 93 H 100 H 107 H Pulse Rate [ 93 H From Monitor] Respiratory 20 23 20 Rate Blood Pressure 120/66 149/77 113/55 O2 Sat by Pulse 95 97 98 Oximetry O2 Sat by Pulse Oximetry [ Assessment] 11/27/21 11/27/21 11/27/21 05:30 06:00 06:30 Temperature Pulse Rate 101 H 100 H 99 H Pulse Rate [ From Monitor] Respiratory 20 21 21 Rate Blood Pressure 113/55 120/66 92/58 O2 Sat by Pulse 96 99 97 Oximetry O2 Sat by Pulse Oximetry [ Assessment] 11/27/21 11/27/21 11/27/21 07:00 07:30 07:35 Temperature Pulse Rate 96 H 93 H Pulse Rate [ From Monitor] Respiratory 14 14 Rate Blood Pressure 131/80 O2 Sat by Pulse 98 97 99 Oximetry O2 Sat by Pulse 99 Oximetry [ Assessment] 11/27/21 11/27/21 11/27/21 08:00 08:30 09:00 Temperature 98.2 F Pulse Rate 84 92 H 96 H Pulse Rate [ 89 From Monitor] Respiratory 20 20 18 Rate Blood Pressure 128/80 140/86 O2 Sat by Pulse 99 99 99 Oximetry O2 Sat by Pulse Oximetry [ Assessment] 11/27/21 09:35 Temperature Pulse Rate 108 H Pulse Rate [ From Monitor] Respiratory 25 H Rate Blood Pressure 130/71 O2 Sat by Pulse 97 Oximetry O2 Sat by Pulse Oximetry [ Assessment] - Lab 11/27/21 04:45 11/27/21 04:45 Most recent lab results ABG pH 7.467 pH Units (7.350-7.450) H 11/18/21 04:35 ABG pCO2 37.1 mm Hg 11/18/21 04:35 ABG pO2 110.0 mm Hg (80.0-90.0) H 11/18/21 04:35 ABG HCO3 26.2 mmol/L (20.0-26.0) H 11/18/21 04:35 ABG O2 Saturation 98.1 % (95.0-99.0) 11/18/21 04:35 Calcium 9.2 mg/dL (8.4-10.2) 11/27/21 04:45 Phosphorus 3.20 mg/dL (2.5-4.5) 11/25/21 23:50 Magnesium 2.50 mg/dL (1.7-2.3) H 11/25/21 23:50 Urine Creatinine 189.3 mg/dL (0.1-20.0) H 11/12/21 02:20 Urine Sodium 30 mmol/L 11/12/21 02:20 Medications & Allergies - Medications Allergies/Adverse Reactions: Allergies No Known Allergies Allergy (Verified 11/11/21 20:58) Home Medications: Home Medications Medication Instructions Recorded Confirmed Last Taken Type No Known Home Medications [No 11/22/21 11/22/21 Unknown History Reported Home Medications] Active Medications: Generic Name Dose Route Start Last Admin Trade Name Freq PRN Reason Stop Dose Admin Acetaminophen 650 mg 11/11/21 22:40 Acetaminophen 325 Mg Tab PO Q4H PRN Pain MILD(1-3)/Fever >100.5/SOTO Albumin Human 12.5 gm 11/23/21 10:00 11/25/21 15:23 Albumin Human 25% (12.5 Gm/50 Ml) Inj IV 12.5 gm LONG PRN Administration Hypotension Albuterol 2.5 mg 11/11/21 22:40 Albuterol 2.5 Mg/3 Ml Nebu IH Q3HRT PRN Shortness Of Breath Aspirin 325 mg 11/17/21 10:00 11/27/21 09:42 Aspirin 325 Mg Tab FEEDTUBE 325 mg QDAY BAO Administration Atorvastatin Calcium 40 mg 11/17/21 22:00 11/26/21 23:30 Atorvastatin 40 Mg Tab FEEDTUBE 40 mg QHS BAO Administration Dextrose 50 ml 11/18/21 13:00 Dextrose 50% In Water (25gm) 50 Ml Syringe IV Q30MIN PRN Hypoglycemia Protocol Famotidine 20 mg 11/17/21 10:00 11/27/21 09:42 Famotidine 20 Mg Tab FEEDTUBE 20 mg QDAY BAO Administration Fentanyl 50 mcg 11/11/21 20:56 11/22/21 03:45 Fentanyl 100 Mcg/2 Ml Inj IV 50 mcg Q10MIN PRN Administration ANALGESIA Hydrophilic Ointment 1 applic 11/11/21 20:56 Lip Therapy Vaseline TP Q2HR PRN Dry Lips Fentanyl Citrate 2,000 mcg in 100 mls @ 13.608 mls/hr 11/11/21 21:00 11/24/21 18:06 Fentanyl Drip Premix IV 0 mcg/kg/hr TITR BAO 0 mls/hr Titration Protocol 1 MCG/KG/HR NORepinephrine/NS 8 MG-250 ML 8 mg in 250 mls @ 3.75 mls/hr 11/11/21 23:00 11/26/21 07:33 Norepinephrine/Ns 8 Mg-250 Ml (Double Conc) IV 0 mcg/min TITRATE BAO 0 mls/hr Titration Protocol 2 MCG/MIN Vasopressin 20 unit/ Sodium 101 mls @ 9.09 mls/hr 11/23/21 12:00 11/23/21 16:17 Chloride IV 0 units/min TITR BAO 0 mls/hr Titration Protocol 0.03 UNITS/MIN Sodium Chloride 1,000 mls @ 5 mls/hr 11/23/21 13:00 11/23/21 17:26 Nacl 0.9% 1000 Ml IV 0 mls/hr DIRECT BAO Infusion Sodium Chloride 100 mls @ 999 mls/hr 11/26/21 12:30 Nacl 0.9% IV LONG PRN Hypotension Insulin Human Lispro 0 unit 11/12/21 00:00 11/27/21 06:26 Insulin Lispro 100 Unit/Ml SUB-Q Not Given Q6HR [facility] Protocol Lorazepam 2 mg 11/21/21 11:00 11/26/21 20:55 Lorazepam 2 Mg/Ml Vial IV 2 mg Q4H PRN Administration Agitation Midodrine 10 mg 11/25/21 13:00 11/27/21 09:41 Midodrine 10 Mg Tab PO 10 mg TID@0800,1200,1600 BAO Administration Multi-Ingred Cream/Lotion/Oil/Oint 1 applic 11/11/21 20:56 Mineral Oil/Petrolatum, White Ophth Oint 3.5 Gm OU Q4HR PRN Dry Eye(s) Ondansetron HCl 4 mg 11/11/21 22:40 Ondansetron 4 Mg/2 Ml Inj IV Q8H PRN Nausea And Vomiting Polyethylene Glycol 17 gm 11/27/21 10:00 Polyethylene Glycol 3350 17 Gm Powder PO QDAY PRN Constip unreliev by MOM/or NPO Senna 8.6 mg 11/17/21 10:00 11/26/21 23:30 Sennosides 8.6 Mg Tab FEEDTUBE Not Given Q12H BAO Sodium Chloride 10 ml 11/12/21 10:00 11/27/21 09:42 Sodium Chloride 0.9% 10 Ml Flush Syringe IV 10 ml BID BAO Administration Sodium Chloride 10 ml 11/11/21 22:40 Sodium Chloride 0.9% 10 Ml Flush Syringe IV PRN PRN LINE FLUSH
--- NOTE | 2021-11-27 12:02 | Progress Note ---
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 06:55 Hyposegmented Neuts Not Reportable 11/12/21 06:55 Hypogranular Neuts Not Reportable 11/12/21 06:55 Smudge Cells Not Reportable 11/12/21 06:55 Toxic Granulation 1+ 11/12/21 06:55 Toxic Vacuolation Not Reportable 11/12/21 06:55 Dohle Bodies Not Reportable 11/12/21 06:55 Pelger-Huet Anomaly Not Reportable 11/12/21 06:55 Lissa Rods Not Reportable 11/12/21 06:55 Platelet Estimate Consistent w auto 11/12/21 06:55 Clumped Platelets Not Reportable 11/12/21 06:55 Plt Clumps, EDTA Not Reportable 11/12/21 06:55 Large Platelets Not Reportable 11/12/21 06:55 Giant Platelets Not Reportable 11/12/21 06:55 Platelet Satelliting Not Reportable 11/12/21 06:55 Plt Morphology Comment Not Reportable 11/12/21 06:55 RBC Morphology Normal 11/12/21 06:55 Dimorphic RBCs Not Reportable 11/12/21 06:55 Polychromasia Not Reportable 11/12/21 06:55 Hypochromasia Not Reportable 11/12/21 06:55 Poikilocytosis Not Reportable 11/12/21 06:55 Anisocytosis Not Reportable 11/12/21 06:55 Microcytosis Not Reportable 11/12/21 06:55 Macrocytosis Not Reportable 11/12/21 06:55 Spherocytes Not Reportable 11/12/21 06:55 Pappenheimer Bodies Not Reportable 11/12/21 06:55 Sickle Cells Not Reportable 11/12/21 06:55 Target Cells Not Reportable 11/12/21 06:55 Tear Drop Cells Not Reportable 11/12/21 06:55 Ovalocytes Not Reportable 11/12/21 06:55 Helmet Cells Not Reportable 11/12/21 06:55 Shea-Weldon Bodies Not Reportable 11/12/21 06:55 Trimble Rings Not Reportable 11/12/21 06:55 [place] Cells Not Reportable 11/12/21 06:55 Bite Cells Not Reportable 11/12/21 06:55 Crenated Cell Not Reportable 11/12/21 06:55 Elliptocytes Not Reportable 11/12/21 06:55 Acanthocytes (Spur) Not Reportable 11/12/21 06:55 Rouleaux Not Reportable 11/12/21 06:55 Hemoglobin C Crystals Not Reportable 11/12/21 06:55 Schistocytes Not Reportable 11/12/21 06:55 Malaria parasites Not Reportable 11/12/21 06:55 Nam Bodies Not Reportable 11/12/21 06:55 Hem Pathologist Commnt No 11/12/21 06:55 PT 14.4 Sec. (12.2-14.9) 11/22/21 04:00 INR 1.01 (0.87-1.13) 11/22/21 04:00 ABG pH 7.467 pH Units (7.350-7.450) H 11/18/21 04:35 ABG pCO2 37.1 mm Hg 11/18/21 04:35 ABG pO2 110.0 mm Hg (80.0-90.0) H 11/18/21 04:35 ABG HCO3 26.2 mmol/L (20.0-26.0) H 11/18/21 04:35 ABG O2 Saturation 98.1 % (95.0-99.0) 11/18/21 04:35 ABG O2 Content 11.3 (0.0-44) 11/18/21 04:35 ABG Base Excess 2.4 mmol/L (-2.0-3.0) 11/18/21 04:35 ABG Hemoglobin 8.1 gm/dl (14.0-18.0) L 11/18/21 04:35 ABG Carboxyhemoglobin 1.2 % (0.0-5.0) 11/18/21 04:35 ABG Methemoglobin 0.4 % (0.0-1.5) 11/18/21 04:35 Oxyhemoglobin 96.5 % (95.0-99.0) 11/18/21 04:35 FiO2 30 % 11/18/21 04:35 Sodium 136 mmol/L (137-145) L 11/28/21 04:30 Potassium 4.2 mmol/L (3.6-5.0) 11/28/21 04:30 Chloride 95.4 mmol/L (98-107) L 11/28/21 04:30 Carbon Dioxide 26 mmol/L (22-30) 11/28/21 04:30 Anion Gap 19 mmol/L 11/28/21 04:30 BUN 49 mg/dL (9-20) H 11/28/21 04:30 Creatinine 6.6 mg/dL (0.8-1.3) H 11/28/21 04:30 Estimated GFR 11 ml/min 11/28/21 04:30 BUN/Creatinine Ratio 7 % 11/28/21 04:30 Glucose 98 mg/dL (75-100) 11/28/21 04:30 POC Glucose 89 mg/dL (70-105) 11/28/21 05:26 Hemoglobin A1c 5.7 % (4-6) 11/12/21 06:55 Lactic Acid 0.90 mmol/L (0.7-2.0) 11/11/21 19:49 Calcium 8.7 mg/dL (8.4-10.2) 11/28/21 04:30 Phosphorus 3.20 mg/dL (2.5-4.5) 11/25/21 23:50 Magnesium 2.50 mg/dL (1.7-2.3) H 11/25/21 23:50 Iron 24 ug/dL (49-181) L 11/11/21 23:29 TIBC 157 mcg/dL (250-450) L 11/11/21 23:29 Total Bilirubin 0.40 mg/dL (0.1-1.2) 11/11/21 19:49 AST 10 units/L (5-40) 11/11/21 19:49 ALT 7 units/L (7-56) 11/11/21 19:49 Alkaline Phosphatase 111 units/L (35-129) 11/11/21 19:49 Total Creatine Kinase 534 units/L (55-170) H 11/22/21 08:30 CK-MB (CK-2) 2.4 ng/mL (0.0-4.0) 11/22/21 08:30 CK-MB (CK-2) Rel Index 0.4 (0-4) 11/22/21 08:30 Troponin T 0.294 ng/mL (0.00-0.029) H* 11/22/21 08:30 NT-Pro-B Natriuret Pep 3674 pg/mL (0-900) H 11/12/21 Unknown Total Protein 9.1 g/dL (6.3-8.2) H 11/11/21 19:49 Albumin 3.0 g/dL (3.9-5) L 11/11/21 19:49 Albumin/Globulin Ratio 0.5 % 11/11/21 19:49 Triglycerides 109 mg/dL (2-149) 11/21/21 04:00 Cholesterol 146 mg/dL (50-199) 11/11/21 19:49 LDL Cholesterol Direct 85 mg/dL (50-130) 11/11/21 19:49 HDL Cholesterol 43 mg/dL (40-59) 11/11/21 19:49 Cholesterol/HDL Ratio 3.39 % 11/11/21 19:49 PTH Intact 1174 pg/mL (15-65) H 11/11/21 23:29 Urine Color Yellow (Yellow) 11/12/21 02:20 Urine Turbidity Cloudy (Clear) 11/12/21 02:20 Urine pH 5.0 (5.0-7.0) 11/12/21 02:20 Ur Specific [place] 1.013 (1.003-1.030) 11/12/21 02:20 Urine Protein >500 mg/dL (Negative) 11/12/21 02:20 Urine Glucose (UA) Neg mg/dL (Negative) 11/12/21 02:20 Urine Ketones Neg mg/dL (Negative) 11/12/21 02:20 Urine Blood Sm (Negative) 11/12/21 02:20 Urine Nitrite Neg (Negative) 11/12/21 02:20 Urine Bilirubin Neg (Negative) 11/12/21 02:20 Urine Urobilinogen < 2.0 mg/dL (<2.0) 11/12/21 02:20 Ur Leukocyte Esterase Tr (Negative) 11/12/21 02:20 Urine WBC (Auto) 12.0 /HPF (0.0-6.0) H 11/12/21 02:20 Urine RBC (Auto) 4.0 /HPF (0.0-6.0) 11/12/21 02:20 U Epithel Cells (Auto) 9.0 /HPF (0-13.0) 11/12/21 02:20 Urine Bacteria (Auto) 2+ /HPF (Negative) 11/12/21 02:20 Urine Mucus Few /HPF 11/12/21 02:20 Urine Yeast (Budding) 3+ /HPF 11/12/21 02:20 Urine Eosinophils None seen (None Seen) 11/12/21 02:20 Urine Creatinine 189.3 mg/dL (0.1-20.0) H 11/12/21 02:20 Urine Sodium 30 mmol/L 11/12/21 02:20 Coronavirus (PCR) Negative (Negative) 11/22/21 Unknown Hepatitis A IgM Ab Non-reactive (NonReactive) 11/12/21 04:45 Hep Bs Antigen Non-reactive (Negative) 11/12/21 04:45 Hep B Core IgM Ab Non-reactive (NonReactive) 11/12/21 04:45 Hepatitis C Antibody Non-reactive (NonReactive) 11/12/21 04:45 Blood Type O POSITIVE 11/22/21 04:20 Antibody Screen Negative 11/22/21 04:20 Iglesias/IV: Voiding Method Incontinent Active Medications - Current Medications Current Medications: Generic Name Dose Route Start Last Admin Trade Name Freq PRN Reason Stop Dose Admin Acetaminophen 650 mg 11/11/21 22:40 Acetaminophen 325 Mg Tab PO Q4H PRN Pain MILD(1-3)/Fever >100.5/SOTO Albumin Human 12.5 gm 11/23/21 10:00 11/25/21 15:23 Albumin Human 25% (12.5 Gm/50 Ml) Inj IV 12.5 gm LONG PRN Administration Hypotension Albuterol 2.5 mg 11/11/21 22:40 Albuterol 2.5 Mg/3 Ml Nebu IH Q3HRT PRN Shortness Of Breath Aspirin 325 mg 11/17/21 10:00 11/27/21 09:42 Aspirin 325 Mg Tab FEEDTUBE 325 mg QDAY BAO Administration Atorvastatin Calcium 40 mg 11/17/21 22:00 11/27/21 22:06 Atorvastatin 40 Mg Tab FEEDTUBE 40 mg QHS BAO Administration Dextrose 50 ml 11/18/21 13:00 Dextrose 50% In Water (25gm) 50 Ml Syringe IV Q30MIN PRN Hypoglycemia Protocol Famotidine 20 mg 11/17/21 10:00 11/27/21 09:42 Famotidine 20 Mg Tab FEEDTUBE 20 mg QDAY BAO Administration Fentanyl 50 mcg 11/11/21 20:56 11/22/21 03:45 Fentanyl 100 Mcg/2 Ml Inj IV 50 mcg Q10MIN PRN Administration ANALGESIA Hydrophilic Ointment 1 applic 11/11/21 20:56 Lip Therapy Vaseline TP Q2HR PRN Dry Lips Fentanyl Citrate 2,000 mcg in 100 mls @ 13.608 mls/hr 11/11/21 21:00 11/24/21 18:06 Fentanyl Drip Premix IV 0 mcg/kg/hr TITR BAO 0 mls/hr Titration Protocol 1 MCG/KG/HR NORepinephrine/NS 8 MG-250 ML 8 mg in 250 mls @ 3.75 mls/hr 11/11/21 23:00 11/26/21 07:33 Norepinephrine/Ns 8 Mg-250 Ml (Double Conc) IV 0 mcg/min TITRATE BAO 0 mls/hr Titration Protocol 2 MCG/MIN Vasopressin 20 unit/ Sodium 101 mls @ 9.09 mls/hr 11/23/21 12:00 11/23/21 16:17 Chloride IV 0 units/min TITR BAO 0 mls/hr Titration Protocol 0.03 UNITS/MIN Sodium Chloride 1,000 mls @ 5 mls/hr 11/23/21 13:00 11/23/21 17:26 Nacl 0.9% 1000 Ml IV 0 mls/hr DIRECT BAO Infusion Sodium Chloride 100 mls @ 999 mls/hr 11/26/21 12:30 Nacl 0.9% IV LONG PRN Hypotension Insulin Human Lispro 0 unit 11/12/21 00:00 11/28/21 05:40 Insulin Lispro 100 Unit/Ml SUB-Q Not Given Q6HR [facility] Protocol Lorazepam 2 mg 11/21/21 11:00 11/26/21 20:55 Lorazepam 2 Mg/Ml Vial IV 2 mg Q4H PRN Administration Agitation Midodrine 10 mg 11/25/21 13:00 11/27/21 16:57 Midodrine 10 Mg Tab PO 10 mg TID@0800,1200,1600 BAO Administration Multi-Ingred Cream/Lotion/Oil/Oint 1 applic 11/11/21 20:56 Mineral Oil/Petrolatum, White Ophth Oint 3.5 Gm OU Q4HR PRN Dry Eye(s) Ondansetron HCl 4 mg 11/11/21 22:40 Ondansetron 4 Mg/2 Ml Inj IV Q8H PRN Nausea And Vomiting Polyethylene Glycol 17 gm 11/27/21 10:00 Polyethylene Glycol 3350 17 Gm Powder PO QDAY PRN Constip unreliev by MOM/or NPO Senna 8.6 mg 11/17/21 10:00 11/27/21 22:06 Sennosides 8.6 Mg Tab FEEDTUBE 8.6 mg Q12H BAO Administration Sodium Chloride 10 ml 11/12/21 10:00 11/27/21 22:07 Sodium Chloride 0.9% 10 Ml Flush Syringe IV 10 ml BID BAO Administration Sodium Chloride 10 ml 11/11/21 22:40 Sodium Chloride 0.9% 10 Ml Flush Syringe IV PRN PRN LINE FLUSH Nutrition/Malnutrition Assess - Dietary Evaluation Nutrition/Malnutrition Findings: Nutrition Notes Start: 11/12/21 16:08 Freq: Status: Active Protocol: Document 11/21/21 12:33 TODD (Rec: 11/21/21 12:44 TODD [email or web address]) Nutrition Notes Initial or Follow up Reassessment Current Diagnosis Acute Kidney Injury,Diabetes, Hypertension,Respiratory Failure Other Pertinent Diagnosis Pneu Current Diet TF - Nepro at 50ml/hr Labs/Tests Na 133 BUN 40 Cr 6.2 Pertinent Medications Colace, Pepcid, Senokot, Levophed gtt, Propofol at 8. 166ml/hr (provides 216 kcal) Height 5 ft 9 in Weight 186.45 kg [place] Body Weight (kg) 72.72 BMI 60.7 Weight change and time frame Current wt obtained from bed scale Weight Status Morbidly Obese Subjective/Other Information Pt receiving HD at time of visit (11:07). Per HD nurse, pt been receiving HD almost daily; she will remove 3L of fluid today; 4L removed this past Sunday. Pt remains on vent support. Per RN, pt last BM was 11/17. Pt tolerating TF. Percent of energy/protein needs met: 100% energy 53% pro Burn Absent Trauma Absent #1 Nutrition Diagnosis Inadequate oral intake Diagnosis Progress(for reassessment Continues documentation) Is patient on ventilator? Yes Is Patient Ambulatory and/or Out of Bed No REE-([facility]-confined to bed) 3230.892 Kcal/Kg value to use for calculation 11 Approximate Energy Requirements Using 2051 kcal/Kg Calculation Used for Recommendations 65-70% energy Additional Notes Energy needs: 8298-1708 kcal/ day Pro needs up to 2.5g/kg IBW: 182g/day Fluid needs 1-1.5L/day Nutrition Intervention Nutrition Support: Continue Nepro at 50ml/hr with 200ml water flush q4h. Kcal 2,160 Protein (gm) 97 Carbohydrates (gm) 193 Fat (gm) 115 Fluid (mL) 872 Fiber (gm) 15 Goal #1 TF tolerance Goal #2 TF to meet energy and pro needs as best possible Follow-Up By: 11/28/21 Additional Comments F/U: stable TF, vent status, trach/PEG placement, BM, wt, renal function
[2021-11-27] MEDS: SENNOSIDES 8.6 MG TAB FEEDTUBE SCH ×2 (13:48→22:06)
[2021-11-28] MEDS: INSULIN LISPRO 100 UNIT/ML SUB-Q SCH ×4 (00:33→18:55)
[2021-11-28 05:07] LABS: Hematocrit 23.9 % (35.5-45.6); Hemoglobin 7.4 gm/dl (11.8-15.2); Mean Corpuscular HGB Conc 31 % (32-34); Mean Corpuscular Volume 88 fl (84-94); Platelet Count 319 K/mm3 (140-440); Red Blood Count 2.71 M/mm3 (3.65-5.03)
[2021-11-28 05:25] LABS: Calcium 8.7 mg/dL (8.4-10.2)
[2021-11-28] MEDS: ASPIRIN 325 MG TAB FEEDTUBE SCH (09:30)
[2021-11-28] MEDS: MIDODRINE 10 MG TAB PO SCH ×3 (09:30→17:07)
[2021-11-28] MEDS: FAMOTIDINE 20 MG TAB FEEDTUBE SCH (09:30)
[2021-11-28] MEDS: SENNOSIDES 8.6 MG TAB FEEDTUBE SCH ×2 (09:30→22:15)
--- NOTE | 2021-11-28 10:17 | Progress Note ---
Assessment and Plan Assessment and plan: This is a 56-year-old male with DM, HTN, obesity, currently bedbound and past intubations admitted with acute hypoxic respiratory failure and acute renal failure Hospital course to date: 11/12: Overnight patient received a dialysis catheter and was initiated on dialysis. Iglesias catheter was also placed. Antibiotics discontinued. proBNP pending. Decrease in FiO2 related to ABG. Echocardiogram pending. Patient given X1 for potassium 5.5 and nutrition consulted for tube feedings. updated brother at bedside 11/13: Propofol letter for sedation as patient seems restless on the ventilator only on fentanyl. HD scheduled for today. [facility] plans to conduct PSV possibly Sunday. 11/14: Tolerated HD overnight, 2L removed. Plan for possible HD again today. Patient is tolerating PST today on low dose fentanyl, plan for possible extubation tomorrow. 11/15: SANA overnight. Remains on the vent and on low dose sedation. Continue to tolerate HD. Plan for PST and possible extubation today. 11/16: Failed extubation yesterday and had to be emergently reintubated due to hypoxia and decreased LOC. Patient is stable on the vent this am, remains on low dose sedation, while awake and following commands. CCM recommendations noted due to patient's body habitus, he might need to be trach/Peg. CT neck was canceled due to weight limit. General Surgery consulted for Trach/PEG eval. 11/17: Remains on the vent, sedation increased overnight due to increased agitation and low dose pressors were initiated. Patient tolerated HD yesterday, plan for HD again today. Plan for possible trach/PEG vs possible transfer for ENT eval for trach/PEG. Awaiting on General surgery recommendations. 11/18: SANA overnight. D/w [facility] plan for US thyroid biopsy per General Surgery recommendation due thyroid nodule to r/o malignancy. Patient remains on low dose levophed gtt. Continue HD per Nephro. 11/19: Periods of low SPO2 overnight which resolved with deep suctioning. Patient remains on low dose vent setting, no respiratory distress noted this am. Patient remains on sedation and low dose levophed, MAP in the 70s, continue to wean pressors for MAP above 65. Pending US biopsy of the thyroid for possible trach per General Surgery. 11/20: SANA overnight. Remains on low dose pressors, continue to wean for MAP above 65. Pending US guided thyroid biopsy for possible trach/PEG per General Surgery. 11/21: Trach/PEG postponed till tomorrow. Neurology consult completed who recommended MRI brain and EEG. NGT will be replaced. Will give mag citrate once placed has patient has not had a BM since 11/17 11/22: Patient had a trach/PEG placed today. Will remain n.p.o. till tomorrow morning. On palpation right wrist may have dislocation, x-ray ordered. Confirmed dislocation. Will order sling. 11/23: Attempted hemodialysis today at bedside however unable to record blood pressure and he was given albumin and and started on Levophed. Levophed was still maxed at 30 mcg and vasopressin was added. 1 dose of hydrocortisone 100 mg did not yield results. Attempts to place a line was unsuccessful however blood pressure reading was in the 180s and hemodialysis was resumed. Shortly after resumption patient became hypotensive and was again maxed on Levophed. Hemodialysis was abandoned. 11/24: Haldol scheduled for possibly delirium per CCM, RN to attempt to decrease sedation as tolerated. RT asked to place on SPT. 11/25: CAM ICU negative, started on Levophed overnight, added midodrine. HD orders noted 11/26: HD planned today. Patient seems to be comfortable. RT placed on PSV. 11/28: Remains stable on the vent, tolerated PST over the weekend. Continue daily PST. qHs Seroquel added to promote rest and maintain sleep-wake cycle. Plan for HD today per Nephro. Possible LTAC placement, case management to arrange. Assessment and Plan Neuro: Acute metabolic encephalopathy -Remains on the vent, drowsy this am -Restlessness and Insomnia -qHs Seroquel added -Monitor Qtc -Avoid delirium -Reorientation as needed -Maintain sleep-wake cycle -aspiration/seizure precautions -As needed analgesia for CPOT greater than 3 -Neurology on consult Cardiac: h/o HTN, elevated troponins -Cardiology consulted, appreciate recommendations -S/p vasopressor support -Now on Midodrine -Echocardiogram shows ejection fraction greater than 70 -Blood pressure monitoring per protocol -Maintain MAP above 65 Respiratory: Acute hypoxic respiratory failure, ? OHS -CCM consulted, appreciate recommendations -Intubated in the emergency department on 11/04 -11/15 Failed extubation had to be emergently reintubated due to hypoxia and decreased LOC -4/5 s/p Trach/PEG placement -Vent settings: PRVC-30%,6,20,550 -VAP bundle addressed -Aspiration precaution HOB above 30 -Daily PSV trials as tolerated -PRN ABG and CXR per [facility] -Continue SPO2 monitoring for SPO2 goal above 92% GI: Protin calorie malnutrition, Morbid obesity -4/5 s/p PEGTube placement -Continue enteral nutrition -NTR consulted for tube feedings -BR: Colace : Acute Renal Failure -FeNa 1.04% indicating either ATN or prerenal state -Nephrology consulted, appreciate recommendations -Vas-Cath placed at HD initiated 11/12 -HD per nephrology -Strict intake and output -Renally dose medications -Avoid nephrotoxic medications -Daily weights -Renal ultrasound pending -Trend BMP -Repeat magnesium Endo:Thyroid Nodule h/o DM -Head/neck ultrasound showed left thyroid lobe nodule is a T1 RADS category 3 lesion, current recommendation is follow-up in 1 year -Reexamination by Dr. Gutierrez showed nodule approximately 2.3 cm in maximum dimension. Rec. Follow-up at 1, 3, 5-year intervals to be appropriate -Hemoglobin A1c 5.7 -SSI -Accu-Cheks q. 6 -Avoid hypoglycemia GI/DVT Prophylaxis -PPI- Pepcid -Heparin SubQ The high probability of a clinically significant, sudden or life threatening deterioration of the [multi] system(s) required my full and direct attention, intervention and personal management. The aggregate critical care time was [60] minutes. This time is in addition to time spent performing reported procedures but includes the following: [x] Data Review and interpretation [x] Patient assessment and monitoring of vital signs [x] Documentation [x] Medication orders and management Disposition Plan: ICU Total Time Spent with Patient (Minutes): 60 History Interval history: Patient seen and examined at the bedside. Remains stable on the vent. Drowsy but easily arousable this am, following commands. Restlessness and insomnia overnight,otherwise SANA overnight. Hospitalist Physical - Constitutional Vitals: Temp Pulse Resp BP Pulse Ox 99.3 F 83 20 138/72 99 11/28/21 08:00 11/28/21 10:00 11/28/21 10:00 11/28/21 10:00 11/28/21 10:00 General appearance: Present: no acute distress, obese, other (tracheostomy, on the vent) - EENT Eyes: Present: PERRL ENT: hearing intact - Neck Neck: Present: normal ROM - Respiratory Respiratory effort: normal Respiratory: bilateral: rhonchi - Cardiovascular Rhythm: regular Heart Sounds: Present: S1 & S2 - Extremities Extremities: no ischemia, pulses intact, pulses symmetrical Extremity abnormal: edema - Peripheral Assessment Generalized Edema Type: Non-pitting Edema Degree: 2+ Capillary Refill: < 3 seconds Skin Temperature: Warm Peripheral Pulses: within normal limits - Abdominal General gastrointestinal: soft, non-distended, normal bowel sounds - Integumentary Integumentary: Present: warm, dry - Psychiatric Psychiatric: appropriate mood/affect, cooperative, other (Drowsy) - Neurologic Neurologic: moves all extremities (Except RUE, Chronic wrist fracture) - Allied Health Allied health notes reviewed: nursing, case management HEART Score - HEART Score Troponin: Troponin T 0.294 ng/mL (0.00-0.029) H* 11/22/21 08:30 Results - Labs CBC & Chem 7: 11/28/21 04:30 11/28/21 04:30 Labs: Laboratory Last Values WBC 11.2 K/mm3 (4.5-11.0) H 11/28/21 04:30 RBC 2.71 M/mm3 (3.65-5.03) L 11/28/21 04:30 Hgb 7.4 gm/dl (11.8-15.2) L 11/28/21 04:30 Hct 23.9 % (35.5-45.6) L 11/28/21 04:30 MCV 88 fl (84-94) 11/28/21 04:30 MCH 27 pg (28-32) L 11/28/21 04:30 MCHC 31 % (32-34) L 11/28/21 04:30 RDW 18.0 % (13.2-15.2) H 11/28/21 04:30 Plt Count 319 K/mm3 (140-440) 11/28/21 04:30 Lymph % (Auto) 5.7 % (13.4-35.0) L 11/22/21 08:30 [place] % (Auto) 13.0 % (0.0-7.3) H 11/22/21 08:30 Eos % (Auto) 1.4 % (0.0-4.3) 11/22/21 08:30 Baso % (Auto) 0.4 % (0.0-1.8) 11/22/21 08:30 Lymph # (Auto) 0.8 K/mm3 (1.2-5.4) L 11/22/21 08:30 [place] # (Auto) 1.9 K/mm3 (0.0-0.8) H 11/22/21 08:30 Eos # (Auto) 0.2 K/mm3 (0.0-0.4) 11/22/21 08:30 Baso # (Auto) 0.1 K/mm3 (0.0-0.1) 11/22/21 08:30 Add Manual Diff Complete 11/12/21 06:55 Total Counted 100 11/12/21 06:55 Seg Neutrophils % 79.5 % (40.0-70.0) H 11/22/21 08:30 Seg Neuts % (Manual) 89.0 % (40.0-70.0) H 11/12/21 06:55 Band Neutrophils % 5.0 % 11/12/21 06:55 Lymphocytes % (Manual) 0 % (13.4-35.0) L 11/12/21 06:55 Reactive Lymphs % (Man) 0 % 11/12/21 06:55 Monocytes % (Manual) 3.0 % (0.0-7.3) 11/12/21 06:55 Eosinophils % (Manual) 0 % (0.0-4.3) 11/12/21 06:55 Basophils % (Manual) 0 % (0.0-1.8) 11/12/21 06:55 Metamyelocytes % 3.0 % 11/12/21 06:55 Myelocytes % 0 % 11/12/21 06:55 Promyelocytes % 0 % 11/12/21 06:55 Blast Cells % 0 % 11/12/21 06:55 Nucleated RBC % Not Reportable 11/12/21 06:55 Seg Neutrophils # 11.8 K/mm3 (1.8-7.7) H 11/22/21 08:30 Seg Neutrophils # Man 18.2 K/mm3 (1.8-7.7) H 11/12/21 06:55 Band Neutrophils # 1.0 K/mm3 11/12/21 06:55 Lymphocytes # (Manual) 0.0 K/mm3 (1.2-5.4) L 11/12/21 06:55 Abs React Lymphs (Man) 0.0 K/mm3 11/12/21 06:55 Monocytes # (Manual) 0.6 K/mm3 (0.0-0.8) 11/12/21 06:55 Eosinophils # (Manual) 0.0 K/mm3 (0.0-0.4) 11/12/21 06:55 Basophils # (Manual) 0.0 K/mm3 (0.0-0.1) 11/12/21 06:55 Metamyelocytes # 0.6 K/mm3 11/12/21 06:55 Myelocytes # 0.0 K/mm3 11/12/21 06:55 Promyelocytes # 0.0 K/mm3 11/12/21 06:55 Blast Cells # 0.0 K/mm3 11/12/21 06:55 WBC Morphology Not Reportable 11/12/21 06:55 Hypersegmented Neuts Not Reportable 11/12/21 06:55 Hyposegmented Neuts Not Reportable 11/12/21 06:55 Hypogranular Neuts Not Reportable 11/12/21 06:55 Smudge Cells Not Reportable 11/12/21 06:55 Toxic Granulation 1+ 11/12/21 06:55 Toxic Vacuolation Not Reportable 11/12/21 06:55 Dohle Bodies Not Reportable 11/12/21 06:55 Pelger-Huet Anomaly Not Reportable 11/12/21 06:55 Lissa Rods Not Reportable 11/12/21 06:55 Platelet Estimate Consistent w auto 11/12/21 06:55 Clumped Platelets Not Reportable 11/12/21 06:55 Plt Clumps, EDTA Not Reportable 11/12/21 06:55 Large Platelets Not Reportable 11/12/21 06:55 Giant Platelets Not Reportable 11/12/21 06:55 Platelet Satelliting Not Reportable 11/12/21 06:55 Plt Morphology Comment Not Reportable 11/12/21 06:55 RBC Morphology Normal 11/12/21 06:55 Dimorphic RBCs Not Reportable 11/12/21 06:55 Polychromasia Not Reportable 11/12/21 06:55 Hypochromasia Not Reportable 11/12/21 06:55 Poikilocytosis Not Reportable 11/12/21 06:55 Anisocytosis Not Reportable 11/12/21 06:55 Microcytosis Not Reportable 11/12/21 06:55 Macrocytosis Not Reportable 11/12/21 06:55 Spherocytes Not Reportable 11/12/21 06:55 Pappenheimer Bodies Not Reportable 11/12/21 06:55 Sickle Cells Not Reportable 11/12/21 06:55 Target Cells Not Reportable 11/12/21 06:55 Tear Drop Cells Not Reportable 11/12/21 06:55 Ovalocytes Not Reportable 11/12/21 06:55 Helmet Cells Not Reportable 11/12/21 06:55 Shea-Berwind Bodies Not Reportable 11/12/21 06:55 Merrill Rings Not Reportable 11/12/21 06:55 [place] Cells Not Reportable 11/12/21 06:55 Bite Cells Not Reportable 11/12/21 06:55 Crenated Cell Not Reportable 11/12/21 06:55 Elliptocytes Not Reportable 11/12/21 06:55 Acanthocytes (Spur) Not Reportable 11/12/21 06:55 Rouleaux Not Reportable 11/12/21 06:55 Hemoglobin C Crystals Not Reportable 11/12/21 06:55 Schistocytes Not Reportable 11/12/21 06:55 Malaria parasites Not Reportable 11/12/21 06:55 Nam Bodies Not Reportable 11/12/21 06:55 Hem Pathologist Commnt No 11/12/21 06:55 PT 14.4 Sec. (12.2-14.9) 11/22/21 04:00 INR 1.01 (0.87-1.13) 11/22/21 04:00 ABG pH 7.467 pH Units (7.350-7.450) H 11/18/21 04:35 ABG pCO2 37.1 mm Hg 11/18/21 04:35 ABG pO2 110.0 mm Hg (80.0-90.0) H 11/18/21 04:35 ABG HCO3 26.2 mmol/L (20.0-26.0) H 11/18/21 04:35 ABG O2 Saturation 98.1 % (95.0-99.0) 11/18/21 04:35 ABG O2 Content 11.3 (0.0-44) 11/18/21 04:35 ABG Base Excess 2.4 mmol/L (-2.0-3.0) 11/18/21 04:35 ABG Hemoglobin 8.1 gm/dl (14.0-18.0) L 11/18/21 04:35 ABG Carboxyhemoglobin 1.2 % (0.0-5.0) 11/18/21 04:35 ABG Methemoglobin 0.4 % (0.0-1.5) 11/18/21 04:35 Oxyhemoglobin 96.5 % (95.0-99.0) 11/18/21 04:35 FiO2 30 % 11/18/21 04:35 Sodium 136 mmol/L (137-145) L 11/28/21 04:30 Potassium 4.2 mmol/L (3.6-5.0) 11/28/21 04:30 Chloride 95.4 mmol/L (98-107) L 11/28/21 04:30 Carbon Dioxide 26 mmol/L (22-30) 11/28/21 04:30 Anion Gap 19 mmol/L 11/28/21 04:30 BUN 49 mg/dL (9-20) H 11/28/21 04:30 Creatinine 6.6 mg/dL (0.8-1.3) H 11/28/21 04:30 Estimated GFR 11 ml/min 11/28/21 04:30 BUN/Creatinine Ratio 7 % 11/28/21 04:30 Glucose 98 mg/dL (75-100) 11/28/21 04:30 POC Glucose 89 mg/dL (70-105) 11/28/21 05:26 Hemoglobin A1c 5.7 % (4-6) 11/12/21 06:55 Lactic Acid 0.90 mmol/L (0.7-2.0) 11/11/21 19:49 Calcium 8.7 mg/dL (8.4-10.2) 11/28/21 04:30 Phosphorus 3.20 mg/dL (2.5-4.5) 11/25/21 23:50 Magnesium 2.50 mg/dL (1.7-2.3) H 11/25/21 23:50 Iron 24 ug/dL (49-181) L 11/11/21 23:29 TIBC 157 mcg/dL (250-450) L 11/11/21 23:29 Total Bilirubin 0.40 mg/dL (0.1-1.2) 11/11/21 19:49 AST 10 units/L (5-40) 11/11/21 19:49 ALT 7 units/L (7-56) 11/11/21 19:49 Alkaline Phosphatase 111 units/L (35-129) 11/11/21 19:49 Total Creatine Kinase 534 units/L (55-170) H 11/22/21 08:30 CK-MB (CK-2) 2.4 ng/mL (0.0-4.0) 11/22/21 08:30 CK-MB (CK-2) Rel Index 0.4 (0-4) 11/22/21 08:30 Troponin T 0.294 ng/mL (0.00-0.029) H* 11/22/21 08:30 NT-Pro-B Natriuret Pep 3674 pg/mL (0-900) H 11/12/21 Unknown Total Protein 9.1 g/dL (6.3-8.2) H 11/11/21 19:49 Albumin 3.0 g/dL (3.9-5) L 11/11/21 19:49 Albumin/Globulin Ratio 0.5 % 11/11/21 19:49 Triglycerides 109 mg/dL (2-149) 11/21/21 04:00 Cholesterol 146 mg/dL (50-199) 11/11/21 19:49 LDL Cholesterol Direct 85 mg/dL (50-130) 11/11/21 19:49 HDL Cholesterol 43 mg/dL (40-59) 11/11/21 19:49 Cholesterol/HDL Ratio 3.39 % 11/11/21 19:49 PTH Intact 1174 pg/mL (15-65) H 11/11/21 23:29 Urine Color Yellow (Yellow) 11/12/21 02:20 Urine Turbidity Cloudy (Clear) 11/12/21 02:20 Urine pH 5.0 (5.0-7.0) 11/12/21 02:20 Ur Specific [place] 1.013 (1.003-1.030) 11/12/21 02:20 Urine Protein >500 mg/dL (Negative) 11/12/21 02:20 Urine Glucose (UA) Neg mg/dL (Negative) 11/12/21 02:20 Urine Ketones Neg mg/dL (Negative) 11/12/21 02:20 Urine Blood Sm (Negative) 11/12/21 02:20 Urine Nitrite Neg (Negative) 11/12/21 02:20 Urine Bilirubin Neg (Negative) 11/12/21 02:20 Urine Urobilinogen < 2.0 mg/dL (<2.0) 11/12/21 02:20 Ur Leukocyte Esterase Tr (Negative) 11/12/21 02:20 Urine WBC (Auto) 12.0 /HPF (0.0-6.0) H 11/12/21 02:20 Urine RBC (Auto) 4.0 /HPF (0.0-6.0) 11/12/21 02:20 U Epithel Cells (Auto) 9.0 /HPF (0-13.0) 11/12/21 02:20 Urine Bacteria (Auto) 2+ /HPF (Negative) 11/12/21 02:20 Urine Mucus Few /HPF 11/12/21 02:20 Urine Yeast (Budding) 3+ /HPF 11/12/21 02:20 Urine Eosinophils None seen (None Seen) 11/12/21 02:20 Urine Creatinine 189.3 mg/dL (0.1-20.0) H 11/12/21 02:20 Urine Sodium 30 mmol/L 11/12/21 02:20 Coronavirus (PCR) Negative (Negative) 11/22/21 Unknown Hepatitis A IgM Ab Non-reactive (NonReactive) 11/12/21 04:45 Hep Bs Antigen Non-reactive (Negative) 11/12/21 04:45 Hep B Core IgM Ab Non-reactive (NonReactive) 11/12/21 04:45 Hepatitis C Antibody Non-reactive (NonReactive) 11/12/21 04:45 Blood Type O POSITIVE 11/22/21 04:20 Antibody Screen Negative 11/22/21 04:20 Iglesias/IV: Voiding Method Incontinent Active Medications - Current Medications Current Medications: Generic Name Dose Route Start Last Admin Trade Name Freq PRN Reason Stop Dose Admin Acetaminophen 650 mg 11/11/21 22:40 Acetaminophen 325 Mg Tab PO Q4H PRN Pain MILD(1-3)/Fever >100.5/SOTO Albumin Human 12.5 gm 11/23/21 10:00 11/25/21 15:23 Albumin Human 25% (12.5 Gm/50 Ml) Inj IV 12.5 gm LONG PRN Administration Hypotension Albuterol 2.5 mg 11/11/21 22:40 Albuterol 2.5 Mg/3 Ml Nebu IH Q3HRT PRN Shortness Of Breath Aspirin 325 mg 11/17/21 10:00 11/28/21 09:30 Aspirin 325 Mg Tab FEEDTUBE 325 mg QDAY BAO Administration Atorvastatin Calcium 40 mg 11/17/21 22:00 11/27/21 22:06 Atorvastatin 40 Mg Tab FEEDTUBE 40 mg QHS BAO Administration Dextrose 50 ml 11/18/21 13:00 Dextrose 50% In Water (25gm) 50 Ml Syringe IV Q30MIN PRN Hypoglycemia Protocol Famotidine 20 mg 11/17/21 10:00 11/28/21 09:30 Famotidine 20 Mg Tab FEEDTUBE 20 mg QDAY BAO Administration Fentanyl 50 mcg 11/11/21 20:56 11/22/21 03:45 Fentanyl 100 Mcg/2 Ml Inj IV 50 mcg Q10MIN PRN Administration ANALGESIA Hydrophilic Ointment 1 applic 11/11/21 20:56 Lip Therapy Vaseline TP Q2HR PRN Dry Lips Fentanyl Citrate 2,000 mcg in 100 mls @ 13.608 mls/hr 11/11/21 21:00 11/24/21 18:06 Fentanyl Drip Premix IV 0 mcg/kg/hr TITR BAO 0 mls/hr Titration Protocol 1 MCG/KG/HR NORepinephrine/NS 8 MG-250 ML 8 mg in 250 mls @ 3.75 mls/hr 11/11/21 23:00 11/26/21 07:33 Norepinephrine/Ns 8 Mg-250 Ml (Double Conc) IV 0 mcg/min TITRATE BAO 0 mls/hr Titration Protocol 2 MCG/MIN Vasopressin 20 unit/ Sodium 101 mls @ 9.09 mls/hr 11/23/21 12:00 11/23/21 16:17 Chloride IV 0 units/min TITR BAO 0 mls/hr Titration Protocol 0.03 UNITS/MIN Sodium Chloride 1,000 mls @ 5 mls/hr 11/23/21 13:00 11/23/21 17:26 Nacl 0.9% 1000 Ml IV 0 mls/hr DIRECT BAO Infusion Sodium Chloride 100 mls @ 999 mls/hr 11/26/21 12:30 Nacl 0.9% IV LONG PRN Hypotension Insulin Human Lispro 0 unit 11/12/21 00:00 11/28/21 05:40 Insulin Lispro 100 Unit/Ml SUB-Q Not Given Q6HR [facility] Protocol Lorazepam 2 mg 11/21/21 11:00 11/26/21 20:55 Lorazepam 2 Mg/Ml Vial IV 2 mg Q4H PRN Administration Agitation Midodrine 10 mg 11/25/21 13:00 11/28/21 09:30 Midodrine 10 Mg Tab PO 10 mg TID@0800,1200,1600 BAO Administration Multi-Ingred Cream/Lotion/Oil/Oint 1 applic 11/11/21 20:56 Mineral Oil/Petrolatum, White Ophth Oint 3.5 Gm OU Q4HR PRN Dry Eye(s) Ondansetron HCl 4 mg 11/11/21 22:40 Ondansetron 4 Mg/2 Ml Inj IV Q8H PRN Nausea And Vomiting Polyethylene Glycol 17 gm 11/27/21 10:00 Polyethylene Glycol 3350 17 Gm Powder PO QDAY PRN Constip unreliev by MOM/or NPO Senna 8.6 mg 11/17/21 10:00 11/28/21 09:30 Sennosides 8.6 Mg Tab FEEDTUBE 8.6 mg Q12H BAO Administration Sodium Chloride 10 ml 11/12/21 10:00 11/28/21 09:30 Sodium Chloride 0.9% 10 Ml Flush Syringe IV 10 ml BID BAO Administration Sodium Chloride 10 ml 11/11/21 22:40 Sodium Chloride 0.9% 10 Ml Flush Syringe IV PRN PRN LINE FLUSH Nutrition/Malnutrition Assess - Dietary Evaluation Nutrition/Malnutrition Findings: Nutrition Notes Start: 11/12/21 16:08 Freq: Status: Active Protocol: Document 11/21/21 12:33 TODD (Rec: 11/21/21 12:44 TODD [id number]) Nutrition Notes Initial or Follow up Reassessment Current Diagnosis Acute Kidney Injury,Diabetes, Hypertension,Respiratory Failure Other Pertinent Diagnosis Pneu Current Diet TF - Nepro at 50ml/hr Labs/Tests Na 133 BUN 40 Cr 6.2 Pertinent Medications Colace, Pepcid, Senokot, Levophed gtt, Propofol at 8. 166ml/hr (provides 216 kcal) Height 5 ft 9 in Weight 186.45 kg [place] Body Weight (kg) 72.72 BMI 60.7 Weight change and time frame Current wt obtained from bed scale Weight Status Morbidly Obese Subjective/Other Information Pt receiving HD at time of visit (11:07). Per HD nurse, pt been receiving HD almost daily; she will remove 3L of fluid today; 4L removed this past Sunday. Pt remains on vent support. Per RN, pt last BM was 11/17. Pt tolerating TF. Percent of energy/protein needs met: 100% energy 53% pro Burn Absent Trauma Absent #1 Nutrition Diagnosis Inadequate oral intake Diagnosis Progress(for reassessment Continues documentation) Is patient on ventilator? Yes Is Patient Ambulatory and/or Out of Bed No REE-(Dale-St. Jeor-confined to bed) 3230.892 Kcal/Kg value to use for calculation 11 Approximate Energy Requirements Using 1 kcal/Kg Calculation Used for Recommendations 65-70% energy Additional Notes Energy needs: 0193-6987 kcal/ day Pro needs up to 2.5g/kg IBW: 182g/day Fluid needs 1-1.5L/day Nutrition Intervention Nutrition Support: Continue Nepro at 50ml/hr with 200ml water flush q4h. Kcal 2,160 Protein (gm) 97 Carbohydrates (gm) 193 Fat (gm) 115 Fluid (mL) 872 Fiber (gm) 15 Goal #1 TF tolerance Goal #2 TF to meet energy and pro needs as best possible Follow-Up By: 11/28/21 Additional Comments F/U: stable TF, vent status, trach/PEG placement, BM, wt, renal function
--- NOTE | 2021-11-28 11:08 | Progress Note ---
Assessment and Plan 56 y/o morbidly obese male with acute respiratory failure, requiring intubation and now in acute renal failure and in need of HD 11/28/21: Daily PSV trials. HD today. Restarted antipsychotics at night. Seroquel at 50 11/27/21: Daily PSV trials. HD per renal. LTACH next week. Stopped Haldol today. 11/26/21: Can likely stop haldol today as delirium seems to be stablized. LTACH next week. 11/25/21: Continue scheduled haldol. Ok if renal wants to dialyze but would consider only cleaning and not fluid removal as pulm status is stable. LTACH placement 11/24/21: Start scheduled haldol and see if we can wean sedation of. Hold on HD today. LTACH. 11/23/21: Successful trach and peg on yesterday. HD today, post HD start weaning trials. Will need LTACH. Will ask renal about Permcath placement 11/22/21: Follow up post op. Will need LTACH. HD per renal, need to ask them if he will need permacath as well. 11/21/21: Reviewed Gen Surg note. Will reach out to them for further discussion. Continue aggressive volume removal. Wean Pressors as tolerated. 11/18/21: Await Gen Surg comments as they were checking on OR supplies. If not able to, will start working on transfer as patient will need trach given current clinical state. HD per renal. Wean pressors as tolerated. Guarded to poor prognosis. 11/17/21: Follow up Gen Surge eval, they are checking to see the materials they have in OR. Reviewed neck ultrasound, per their read trachea is only about an 1inch away from the skin. Shocking given his neck size but given the difficulty in intubation and his entrance being anterior, this makes sense. Will defer to surgery call but have no problem with calling for transfer as well. Wean Pressors as tolerated. HD per renal. Continue sedation for RASS of 0. Guarded to poor prognosis. 11/16/21: Given patient body habitus, difficult airway and likely no improvement in current clinical state, will need trach. However given his neck size, I would suggest this be done by ENT as I am not even sure that the bovona XLT is long enough. Ok to consult surgery here but I suggest seeking transfer to a tertiary care facility with ENT to attempt this. Also suggest obtaining neck CT to further evaluate total neck anatomy that way if we need to send this over prior to acceptance we can. Guarded prognosis but mental status is intact. HD per renal. 11/15/21: stop sedation. Attempt PSV. Bipap PRN and QHS. Hopeful extubation today. HD per renal. 11/14/21: Wean PEEP again today and attempt PSV trial. If passes will attempt extubation. HD per renal 11/13/21: HD per renal. No PSV trials today. Wean PEEP after HD. Guarded prognosis. 1. Obtain ABG 2. Place Iglesias catheter 3. Wean Pressors for maps greater than 65 4. Insulin, D50 for Hyperkalemia, and HD per renal 5. Stopped scheduled duonebs 6. Stopped abx 7. Obtain BNP with morning labs 8. Guarded prognosis. CCT 31 minutes. Subjective Date of service: 11/28/21 Principal diagnosis: Acute respiratory failure, Interval history: No acute events Objective Vital Signs - 12hr 11/27/21 11/27/21 11/27/21 23:12 23:16 23:30 Temperature Pulse Rate 89 89 86 Pulse Rate [ From Monitor] Respiratory 17 20 Rate Blood Pressure 113/53 113/53 123/61 O2 Sat by Pulse 100 99 98 Oximetry O2 Sat by Pulse Oximetry [ Assessment] 11/27/21 11/28/21 11/28/21 23:57 00:00 00:30 Temperature 98.7 F Pulse Rate 90 90 Pulse Rate [ 90 From Monitor] Respiratory 17 20 Rate Blood Pressure 119/64 132/76 O2 Sat by Pulse 99 98 Oximetry O2 Sat by Pulse Oximetry [ Assessment] 11/28/21 11/28/21 11/28/21 01:00 01:30 02:00 Temperature Pulse Rate 96 H 93 H 90 Pulse Rate [ From Monitor] Respiratory 17 20 20 Rate Blood Pressure 132/76 142/79 O2 Sat by Pulse 100 96 100 Oximetry O2 Sat by Pulse Oximetry [ Assessment] 11/28/21 11/28/21 11/28/21 02:30 03:00 03:30 Temperature Pulse Rate 88 89 88 Pulse Rate [ From Monitor] Respiratory 20 20 20 Rate Blood Pressure 151/81 157/79 152/77 O2 Sat by Pulse 100 100 100 Oximetry O2 Sat by Pulse Oximetry [ Assessment] 11/28/21 11/28/21 11/28/21 03:31 04:00 04:30 Temperature 99.5 F Pulse Rate 89 88 Pulse Rate [ 88 From Monitor] Respiratory 20 20 Rate Blood Pressure 160/84 148/80 O2 Sat by Pulse 100 100 Oximetry O2 Sat by Pulse Oximetry [ Assessment] 11/28/21 11/28/21 11/28/21 05:00 05:30 05:46 Temperature Pulse Rate 89 82 Pulse Rate [ From Monitor] Respiratory 20 17 18 Rate Blood Pressure 160/84 163/84 163/84 O2 Sat by Pulse 99 99 100 Oximetry O2 Sat by Pulse Oximetry [ Assessment] 11/28/21 11/28/21 11/28/21 06:00 06:16 06:30 Temperature Pulse Rate 111 H 96 H 99 H Pulse Rate [ From Monitor] Respiratory 20 22 14 Rate Blood Pressure 163/84 140/80 140/80 O2 Sat by Pulse 99 100 96 Oximetry O2 Sat by Pulse Oximetry [ Assessment] 11/28/21 11/28/21 11/28/21 06:46 07:00 07:16 Temperature Pulse Rate 96 H 89 87 Pulse Rate [ From Monitor] Respiratory 18 16 21 Rate Blood Pressure 135/74 135/74 125/61 O2 Sat by Pulse 95 96 97 Oximetry O2 Sat by Pulse Oximetry [ Assessment] 11/28/21 11/28/21 11/28/21 07:30 07:46 08:00 Temperature 99.3 F Pulse Rate 93 H 88 Pulse Rate [ 90 From Monitor] Respiratory 19 20 Rate Blood Pressure 125/61 105/59 105/59 O2 Sat by Pulse 98 99 99 Oximetry O2 Sat by Pulse Oximetry [ Assessment] 11/28/21 11/28/21 11/28/21 08:15 08:16 08:24 Temperature Pulse Rate 89 87 Pulse Rate [ From Monitor] Respiratory 20 Rate Blood Pressure 138/75 138/75 O2 Sat by Pulse 98 98 Oximetry O2 Sat by Pulse 98 Oximetry [ Assessment] 11/28/21 11/28/21 11/28/21 08:30 09:06 09:15 Temperature Pulse Rate 85 85 86 Pulse Rate [ From Monitor] Respiratory 20 20 20 Rate Blood Pressure 138/75 O2 Sat by Pulse 98 97 97 Oximetry O2 Sat by Pulse Oximetry [ Assessment] 11/28/21 11/28/21 11/28/21 09:30 09:45 10:00 Temperature Pulse Rate 85 85 83 Pulse Rate [ From Monitor] Respiratory 20 20 20 Rate Blood Pressure 138/73 138/73 138/72 O2 Sat by Pulse 98 98 99 Oximetry O2 Sat by Pulse Oximetry [ Assessment] 11/28/21 10:45 Temperature Pulse Rate 89 Pulse Rate [ From Monitor] Respiratory 20 Rate Blood Pressure 140/79 O2 Sat by Pulse 97 Oximetry O2 Sat by Pulse Oximetry [ Assessment] Constitutional: comatose Eyes: non-icteric ENT: other (orally intubated and sedated) Neck: supple, other (large in circumference) Effort: normal Ascultation: Bilateral: diminished breath sounds Cardiovascular: regular rate and rhythm Gastrointestinal: normoactive bowel sounds Extremities: edema, anasarca Neurologic: unable to assess CBC and BMP: 11/29/21 05:25 11/29/21 05:25 ABG, PT/INR, D-dimer: ABG ABG pH 7.467 pH Units (7.350-7.450) H 11/18/21 04:35 ABG pCO2 37.1 mm Hg 11/18/21 04:35 ABG pO2 110.0 mm Hg (80.0-90.0) H 11/18/21 04:35 ABG O2 Saturation 98.1 % (95.0-99.0) 11/18/21 04:35 PT/INR, D-dimer PT 14.4 Sec. (12.2-14.9) 11/22/21 04:00 INR 1.01 (0.87-1.13) 11/22/21 04:00 Abnormal lab findings: Abnormal Labs 11/11/21 11/11/21 11/11/21 19:49 19:49 23:29 WBC 11.5 H RBC Hgb 10.1 L Hct 34.8 L MCH 27 L MCHC 29 L RDW 20.1 H Lymph % (Auto) 10.0 L [place] % (Auto) 8.8 H Lymph # (Auto) 1.1 L [place] # (Auto) 1.0 H Seg Neutrophils % 79.8 H Seg Neuts % (Manual) Lymphocytes % (Manual) Seg Neutrophils # 9.2 H Seg Neutrophils # Man Lymphocytes # (Manual) ABG pH ABG pO2 ABG HCO3 ABG O2 Saturation ABG Base Excess ABG Hemoglobin Sodium Potassium 7.6 H* Chloride 107.8 H Carbon Dioxide 13 L BUN 107 H Creatinine 13.8 H Glucose POC Glucose Calcium 7.5 L Phosphorus Magnesium Iron TIBC Total Creatine Kinase 268 H Troponin T 0.324 H* NT-Pro-B Natriuret Pep Total Protein 9.1 H Albumin 3.0 L PTH Intact Urine WBC (Auto) Urine Creatinine 11/11/21 11/11/21 11/12/21 23:29 23:29 02:20 WBC RBC Hgb Hct MCH MCHC RDW Lymph % (Auto) [place] % (Auto) Lymph # (Auto) [place] # (Auto) Seg Neutrophils % Seg Neuts % (Manual) Lymphocytes % (Manual) Seg Neutrophils # Seg Neutrophils # Man Lymphocytes # (Manual) ABG pH ABG pO2 ABG HCO3 ABG O2 Saturation ABG Base Excess ABG Hemoglobin Sodium Potassium Chloride Carbon Dioxide BUN Creatinine Glucose POC Glucose Calcium Phosphorus Magnesium Iron 24 L TIBC 157 L Total Creatine Kinase Troponin T NT-Pro-B Natriuret Pep Total Protein Albumin PTH Intact 1174 H Urine WBC (Auto) Urine Creatinine 189.3 H 11/12/21 11/12/21 11/12/21 02:20 02:28 06:55 WBC 20.5 H RBC 3.54 L Hgb 9.4 L Hct 32.3 L MCH 27 L MCHC 29 L RDW 20.0 H Lymph % (Auto) [place] % (Auto) Lymph # (Auto) [place] # (Auto) Seg Neutrophils % Seg Neuts % (Manual) 89.0 H Lymphocytes % (Manual) 0 L Seg Neutrophils # Seg Neutrophils # Man 18.2 H Lymphocytes # (Manual) 0.0 L ABG pH 7.172 L* ABG pO2 100.6 H ABG HCO3 17.4 L ABG O2 Saturation ABG Base Excess -10.6 L ABG Hemoglobin 9.4 L Sodium Potassium Chloride Carbon Dioxide BUN Creatinine Glucose POC Glucose Calcium Phosphorus Magnesium Iron TIBC Total Creatine Kinase Troponin T NT-Pro-B Natriuret Pep Total Protein Albumin PTH Intact Urine WBC (Auto) 12.0 H Urine Creatinine 11/12/21 11/12/21 11/12/21 06:55 09:10 12:01 WBC RBC Hgb Hct MCH MCHC RDW Lymph % (Auto) [place] % (Auto) Lymph # (Auto) [place] # (Auto) Seg Neutrophils % Seg Neuts % (Manual) Lymphocytes % (Manual) Seg Neutrophils # Seg Neutrophils # Man Lymphocytes # (Manual) ABG pH 7.296 L ABG pO2 237.3 H ABG HCO3 ABG O2 Saturation 99.3 H ABG Base Excess -6.0 L ABG Hemoglobin 8.8 L Sodium Potassium 5.5 H D Chloride 107.1 H Carbon Dioxide 19 L BUN 78 H Creatinine 9.4 H Glucose 119 H POC Glucose 106 H Calcium 8.1 L Phosphorus Magnesium Iron TIBC Total Creatine Kinase Troponin T NT-Pro-B Natriuret Pep Total Protein Albumin PTH Intact Urine WBC (Auto) Urine Creatinine 11/12/21 11/12/21 11/12/21 16:46 16:46 22:30 WBC RBC Hgb Hct MCH MCHC RDW Lymph % (Auto) [place] % (Auto) Lymph # (Auto) [place] # (Auto) Seg Neutrophils % Seg Neuts % (Manual) Lymphocytes % (Manual) Seg Neutrophils # Seg Neutrophils # Man Lymphocytes # (Manual) ABG pH ABG pO2 ABG HCO3 ABG O2 Saturation ABG Base Excess ABG Hemoglobin Sodium 146 H Potassium Chloride 108.2 H Carbon Dioxide 21 L BUN 66 H Creatinine 9.8 H Glucose 125 H POC Glucose Calcium 7.8 L Phosphorus Magnesium Iron TIBC Total Creatine Kinase Troponin T 0.319 H* 0.313 H* NT-Pro-B Natriuret Pep Total Protein Albumin PTH Intact Urine WBC (Auto) Urine Creatinine 11/12/21 11/12/21 11/13/21 23:18 Unknown 04:00 WBC 17.2 H RBC 3.09 L Hgb 8.4 L Hct 27.5 L MCH 27 L MCHC 30 L RDW 19.6 H Lymph % (Auto) [place] % (Auto) Lymph # (Auto) [place] # (Auto) Seg Neutrophils % Seg Neuts % (Manual) Lymphocytes % (Manual) Seg Neutrophils # Seg Neutrophils # Man Lymphocytes # (Manual) ABG pH ABG pO2 ABG HCO3 ABG O2 Saturation ABG Base Excess ABG Hemoglobin Sodium Potassium Chloride Carbon Dioxide BUN Creatinine Glucose POC Glucose 120 H Calcium Phosphorus Magnesium Iron TIBC Total Creatine Kinase Troponin T NT-Pro-B Natriuret Pep 3674 H Total Protein Albumin PTH Intact Urine WBC (Auto) Urine Creatinine 11/13/21 11/13/21 11/13/21 04:00 04:00 05:23 WBC RBC Hgb Hct MCH MCHC RDW Lymph % (Auto) [place] % (Auto) Lymph # (Auto) [place] # (Auto) Seg Neutrophils % Seg Neuts % (Manual) Lymphocytes % (Manual) Seg Neutrophils # Seg Neutrophils # Man Lymphocytes # (Manual) ABG pH 7.274 L ABG pO2 93.2 H ABG HCO3 ABG O2 Saturation ABG Base Excess -3.9 L ABG Hemoglobin 8.2 L Sodium Potassium Chloride Carbon Dioxide 21 L BUN 71 H Creatinine 9.9 H Glucose 128 H POC Glucose 117 H Calcium 7.7 L Phosphorus 5.10 H Magnesium 1.60 L Iron TIBC Total Creatine Kinase Troponin T NT-Pro-B Natriuret Pep Total Protein Albumin PTH Intact Urine WBC (Auto) Urine Creatinine 11/13/21 11/13/21 11/14/21 16:20 23:31 04:10 WBC RBC Hgb Hct MCH MCHC RDW Lymph % (Auto) [place] % (Auto) Lymph # (Auto) [place] # (Auto) Seg Neutrophils % Seg Neuts % (Manual) Lymphocytes % (Manual) Seg Neutrophils # Seg Neutrophils # Man Lymphocytes # (Manual) ABG pH ABG pO2 107.1 H ABG HCO3 ABG O2 Saturation ABG Base Excess ABG Hemoglobin 6.5 L Sodium Potassium Chloride Carbon Dioxide BUN Creatinine Glucose POC Glucose 125 H 123 H Calcium Phosphorus Magnesium Iron TIBC Total Creatine Kinase Troponin T NT-Pro-B Natriuret Pep Total Protein Albumin PTH Intact Urine WBC (Auto) Urine Creatinine 11/14/21 11/14/21 11/14/21 06:30 06:30 15:00 WBC 11.2 H RBC 3.03 L Hgb 8.1 L Hct 26.6 L MCH 27 L MCHC 30 L RDW 19.3 H Lymph % (Auto) [place] % (Auto) Lymph # (Auto) [place] # (Auto) Seg Neutrophils % Seg Neuts % (Manual) Lymphocytes % (Manual) Seg Neutrophils # Seg Neutrophils # Man Lymphocytes # (Manual) ABG pH ABG pO2 ABG HCO3 ABG O2 Saturation ABG Base Excess ABG Hemoglobin Sodium Potassium 3.0 L D 3.4 L Chloride Carbon Dioxide BUN 41 H Creatinine 7.0 H Glucose 107 H POC Glucose Calcium 7.5 L Phosphorus Magnesium 1.60 L Iron TIBC Total Creatine Kinase Troponin T NT-Pro-B Natriuret Pep Total Protein Albumin PTH Intact Urine WBC (Auto) Urine Creatinine 11/14/21 11/15/21 11/15/21 17:24 04:00 04:00 WBC 11.3 H RBC 3.00 L Hgb 8.1 L Hct 26.3 L MCH 27 L MCHC 31 L RDW 19.2 H Lymph % (Auto) [place] % (Auto) Lymph # (Auto) [place] # (Auto) Seg Neutrophils % Seg Neuts % (Manual) Lymphocytes % (Manual) Seg Neutrophils # Seg Neutrophils # Man Lymphocytes # (Manual) ABG pH ABG pO2 ABG HCO3 ABG O2 Saturation ABG Base Excess ABG Hemoglobin Sodium Potassium 3.4 L Chloride Carbon Dioxide BUN 32 H Creatinine 5.9 H Glucose 117 H POC Glucose 124 H Calcium 8.3 L Phosphorus Magnesium Iron TIBC Total Creatine Kinase Troponin T NT-Pro-B Natriuret Pep Total Protein Albumin PTH Intact Urine WBC (Auto) Urine Creatinine 11/15/21 11/15/21 11/16/21 13:58 16:20 04:00 WBC 13.2 H RBC 2.88 L Hgb 7.8 L Hct 25.2 L MCH 27 L MCHC 31 L RDW 19.1 H Lymph % (Auto) [place] % (Auto) Lymph # (Auto) [place] # (Auto) Seg Neutrophils % Seg Neuts % (Manual) Lymphocytes % (Manual) Seg Neutrophils # Seg Neutrophils # Man Lymphocytes # (Manual) ABG pH 7.335 L ABG pO2 254.0 H ABG HCO3 26.2 H ABG O2 Saturation 99.4 H ABG Base Excess ABG Hemoglobin 8.5 L Sodium Potassium Chloride Carbon Dioxide BUN Creatinine Glucose POC Glucose 132 H Calcium Phosphorus Magnesium Iron TIBC Total Creatine Kinase Troponin T NT-Pro-B Natriuret Pep Total Protein Albumin PTH Intact Urine WBC (Auto) Urine Creatinine 11/16/21 11/16/21 11/16/21 04:00 04:05 11:06 WBC RBC Hgb Hct MCH MCHC RDW Lymph % (Auto) [place] % (Auto) Lymph # (Auto) [place] # (Auto) Seg Neutrophils % Seg Neuts % (Manual) Lymphocytes % (Manual) Seg Neutrophils # Seg Neutrophils # Man Lymphocytes # (Manual) ABG pH ABG pO2 115.6 H ABG HCO3 ABG O2 Saturation ABG Base Excess ABG Hemoglobin 8.1 L Sodium Potassium Chloride Carbon Dioxide BUN 44 H Creatinine 7.7 H Glucose 104 H POC Glucose 106 H Calcium 7.9 L Phosphorus Magnesium Iron TIBC Total Creatine Kinase Troponin T NT-Pro-B Natriuret Pep Total Protein Albumin PTH Intact Urine WBC (Auto) Urine Creatinine 11/16/21 11/16/21 11/17/21 18:05 23:51 04:15 WBC 11.8 H RBC 3.02 L Hgb 8.1 L Hct 26.9 L MCH 27 L MCHC 30 L RDW 18.9 H Lymph % (Auto) [place] % (Auto) Lymph # (Auto) [place] # (Auto) Seg Neutrophils % Seg Neuts % (Manual) Lymphocytes % (Manual) Seg Neutrophils # Seg Neutrophils # Man Lymphocytes # (Manual) ABG pH ABG pO2 ABG HCO3 ABG O2 Saturation ABG Base Excess ABG Hemoglobin Sodium Potassium Chloride Carbon Dioxide BUN Creatinine Glucose POC Glucose 109 H 118 H Calcium Phosphorus Magnesium Iron TIBC Total Creatine Kinase Troponin T NT-Pro-B Natriuret Pep Total Protein Albumin PTH Intact Urine WBC (Auto) Urine Creatinine 11/17/21 11/17/21 11/17/21 04:15 04:25 11:25 WBC RBC Hgb Hct MCH MCHC RDW Lymph % (Auto) [place] % (Auto) Lymph # (Auto) [place] # (Auto) Seg Neutrophils % Seg Neuts % (Manual) Lymphocytes % (Manual) Seg Neutrophils # Seg Neutrophils # Man Lymphocytes # (Manual) ABG pH ABG pO2 153.8 H ABG HCO3 ABG O2 Saturation ABG Base Excess ABG Hemoglobin 8.3 L Sodium Potassium Chloride Carbon Dioxide BUN 33 H Creatinine 6.2 H Glucose 118 H POC Glucose 108 H Calcium Phosphorus Magnesium Iron TIBC Total Creatine Kinase Troponin T NT-Pro-B Natriuret Pep Total Protein Albumin PTH Intact Urine WBC (Auto) Urine Creatinine 11/18/21 11/18/21 11/18/21 04:00 04:00 04:35 WBC RBC 2.88 L Hgb 7.8 L Hct 25.3 L MCH 27 L MCHC 31 L RDW 18.7 H Lymph % (Auto) [place] % (Auto) Lymph # (Auto) [place] # (Auto) Seg Neutrophils % Seg Neuts % (Manual) Lymphocytes % (Manual) Seg Neutrophils # Seg Neutrophils # Man Lymphocytes # (Manual) ABG pH 7.467 H ABG pO2 110.0 H ABG HCO3 26.2 H ABG O2 Saturation ABG Base Excess ABG Hemoglobin 8.1 L Sodium Potassium Chloride Carbon Dioxide BUN 28 H Creatinine 5.5 H Glucose POC Glucose Calcium Phosphorus Magnesium Iron TIBC Total Creatine Kinase Troponin T NT-Pro-B Natriuret Pep Total Protein Albumin PTH Intact Urine WBC (Auto) Urine Creatinine 11/18/21 11/19/21 11/19/21 11:50 04:00 11:30 WBC RBC Hgb Hct MCH MCHC RDW Lymph % (Auto) [place] % (Auto) Lymph # (Auto) [place] # (Auto) Seg Neutrophils % Seg Neuts % (Manual) Lymphocytes % (Manual) Seg Neutrophils # Seg Neutrophils # Man Lymphocytes # (Manual) ABG pH ABG pO2 ABG HCO3 ABG O2 Saturation ABG Base Excess ABG Hemoglobin Sodium Potassium Chloride Carbon Dioxide BUN 26 H Creatinine 4.7 H Glucose 110 H POC Glucose 131 H 106 H Calcium Phosphorus Magnesium Iron TIBC Total Creatine Kinase Troponin T NT-Pro-B Natriuret Pep Total Protein Albumin PTH Intact Urine WBC (Auto) Urine Creatinine 11/19/21 11/20/21 11/20/21 17:09 00:14 04:00 WBC RBC Hgb Hct MCH MCHC RDW Lymph % (Auto) [place] % (Auto) Lymph # (Auto) [place] # (Auto) Seg Neutrophils % Seg Neuts % (Manual) Lymphocytes % (Manual) Seg Neutrophils # Seg Neutrophils # Man Lymphocytes # (Manual) ABG pH ABG pO2 ABG HCO3 ABG O2 Saturation ABG Base Excess ABG Hemoglobin Sodium 134 L Potassium Chloride 94.4 L Carbon Dioxide BUN 25 H Creatinine 4.6 H Glucose 117 H POC Glucose 129 H 115 H Calcium Phosphorus Magnesium Iron TIBC Total Creatine Kinase Troponin T NT-Pro-B Natriuret Pep Total Protein Albumin PTH Intact Urine WBC (Auto) Urine Creatinine 11/20/21 11/21/21 11/21/21 11:36 04:00 04:00 WBC 12.0 H RBC 2.85 L Hgb 7.8 L Hct 24.8 L MCH MCHC RDW 18.5 H Lymph % (Auto) [place] % (Auto) Lymph # (Auto) [place] # (Auto) Seg Neutrophils % Seg Neuts % (Manual) Lymphocytes % (Manual) Seg Neutrophils # Seg Neutrophils # Man Lymphocytes # (Manual) ABG pH ABG pO2 ABG HCO3 ABG O2 Saturation ABG Base Excess ABG Hemoglobin Sodium 133 L Potassium Chloride 95.3 L Carbon Dioxide BUN 40 H Creatinine 6.2 H Glucose 103 H POC Glucose 117 H Calcium Phosphorus Magnesium Iron TIBC Total Creatine Kinase Troponin T NT-Pro-B Natriuret Pep Total Protein Albumin PTH Intact Urine WBC (Auto) Urine Creatinine 11/21/21 11/21/21 11/22/21 11:38 18:13 00:41 WBC RBC Hgb Hct MCH MCHC RDW Lymph % (Auto) [place] % (Auto) Lymph # (Auto) [place] # (Auto) Seg Neutrophils % Seg Neuts % (Manual) Lymphocytes % (Manual) Seg Neutrophils # Seg Neutrophils # Man Lymphocytes # (Manual) ABG pH ABG pO2 ABG HCO3 ABG O2 Saturation ABG Base Excess ABG Hemoglobin Sodium Potassium Chloride Carbon Dioxide BUN Creatinine Glucose POC Glucose 127 H 112 H 106 H Calcium Phosphorus Magnesium Iron TIBC Total Creatine Kinase Troponin T NT-Pro-B Natriuret Pep Total Protein Albumin PTH Intact Urine WBC (Auto) Urine Creatinine 11/22/21 11/22/21 11/22/21 04:00 04:00 08:30 WBC 16.1 H 14.8 H RBC 3.01 L 2.95 L Hgb 8.1 L 7.8 L Hct 26.6 L 26.3 L MCH 27 L 27 L MCHC 31 L 30 L RDW 18.3 H 18.9 H Lymph % (Auto) 5.7 L [place] % (Auto) 13.0 H Lymph # (Auto) 0.8 L [place] # (Auto) 1.9 H Seg Neutrophils % 79.5 H Seg Neuts % (Manual) Lymphocytes % (Manual) Seg Neutrophils # 11.8 H Seg Neutrophils # Man Lymphocytes # (Manual) ABG pH ABG pO2 ABG HCO3 ABG O2 Saturation ABG Base Excess ABG Hemoglobin Sodium 136 L Potassium Chloride 97.6 L Carbon Dioxide BUN 35 H Creatinine 5.8 H Glucose 120 H POC Glucose Calcium Phosphorus 4.80 H D Magnesium 3.80 H Iron TIBC Total Creatine Kinase Troponin T NT-Pro-B Natriuret Pep Total Protein Albumin PTH Intact Urine WBC (Auto) Urine Creatinine 11/22/21 11/22/21 11/23/21 08:30 16:39 04:00 WBC 13.7 H RBC 2.93 L Hgb 7.8 L Hct 25.7 L MCH 27 L MCHC 30 L RDW 18.5 H Lymph % (Auto) [place] % (Auto) Lymph # (Auto) [place] # (Auto) Seg Neutrophils % Seg Neuts % (Manual) Lymphocytes % (Manual) Seg Neutrophils # Seg Neutrophils # Man Lymphocytes # (Manual) ABG pH ABG pO2 ABG HCO3 ABG O2 Saturation ABG Base Excess ABG Hemoglobin Sodium Potassium 5.3 H Chloride Carbon Dioxide BUN 36 H Creatinine 6.1 H Glucose 117 H POC Glucose 119 H Calcium Phosphorus Magnesium Iron TIBC Total Creatine Kinase 534 H Troponin T 0.294 H* NT-Pro-B Natriuret Pep Total Protein Albumin PTH Intact Urine WBC (Auto) Urine Creatinine 11/23/21 11/23/21 11/23/21 04:00 11:56 17:20 WBC RBC Hgb Hct MCH MCHC RDW Lymph % (Auto) [place] % (Auto) Lymph # (Auto) [place] # (Auto) Seg Neutrophils % Seg Neuts % (Manual) Lymphocytes % (Manual) Seg Neutrophils # Seg Neutrophils # Man Lymphocytes # (Manual) ABG pH ABG pO2 ABG HCO3 ABG O2 Saturation ABG Base Excess ABG Hemoglobin Sodium Potassium Chloride Carbon Dioxide BUN 27 H Creatinine 5.1 H Glucose 106 H POC Glucose 118 H 110 H Calcium Phosphorus Magnesium Iron TIBC Total Creatine Kinase Troponin T NT-Pro-B Natriuret Pep Total Protein Albumin PTH Intact Urine WBC (Auto) Urine Creatinine 11/24/21 11/24/21 11/24/21 04:30 04:30 05:30 WBC 14.0 H RBC 2.77 L Hgb 7.4 L Hct 24.4 L MCH 27 L MCHC 30 L RDW 18.5 H Lymph % (Auto) [place] % (Auto) Lymph # (Auto) [place] # (Auto) Seg Neutrophils % Seg Neuts % (Manual) Lymphocytes % (Manual) Seg Neutrophils # Seg Neutrophils # Man Lymphocytes # (Manual) ABG pH ABG pO2 ABG HCO3 ABG O2 Saturation ABG Base Excess ABG Hemoglobin Sodium Potassium Chloride 97.5 L Carbon Dioxide BUN 35 H Creatinine 6.1 H Glucose POC Glucose 107 H Calcium Phosphorus Magnesium Iron TIBC Total Creatine Kinase Troponin T NT-Pro-B Natriuret Pep Total Protein Albumin PTH Intact Urine WBC (Auto) Urine Creatinine 11/24/21 11/24/21 11/25/21 11:21 18:04 17:47 WBC RBC Hgb Hct MCH MCHC RDW Lymph % (Auto) [place] % (Auto) Lymph # (Auto) [place] # (Auto) Seg Neutrophils % Seg Neuts % (Manual) Lymphocytes % (Manual) Seg Neutrophils # Seg Neutrophils # Man Lymphocytes # (Manual) ABG pH ABG pO2 ABG HCO3 ABG O2 Saturation ABG Base Excess ABG Hemoglobin Sodium Potassium Chloride Carbon Dioxide BUN Creatinine Glucose POC Glucose 107 H 107 H 124 H Calcium Phosphorus Magnesium Iron TIBC Total Creatine Kinase Troponin T NT-Pro-B Natriuret Pep Total Protein Albumin PTH Intact Urine WBC (Auto) Urine Creatinine 11/25/21 11/25/21 11/25/21 23:40 23:50 23:50 WBC 14.1 H RBC 2.57 L Hgb 7.3 L Hct 22.7 L MCH MCHC RDW 17.9 H Lymph % (Auto) [place] % (Auto) Lymph # (Auto) [place] # (Auto) Seg Neutrophils % Seg Neuts % (Manual) Lymphocytes % (Manual) Seg Neutrophils # Seg Neutrophils # Man Lymphocytes # (Manual) ABG pH ABG pO2 ABG HCO3 ABG O2 Saturation ABG Base Excess ABG Hemoglobin Sodium Potassium Chloride Carbon Dioxide BUN 34 H Creatinine 5.5 H Glucose 117 H POC Glucose 106 H Calcium Phosphorus Magnesium 2.50 H Iron TIBC Total Creatine Kinase Troponin T NT-Pro-B Natriuret Pep Total Protein Albumin PTH Intact Urine WBC (Auto) Urine Creatinine 11/26/21 11/26/21 11/26/21 10:41 10:46 17:28 WBC 12.5 H RBC 2.69 L Hgb 7.2 L Hct 23.8 L MCH 27 L MCHC 30 L RDW 17.7 H Lymph % (Auto) [place] % (Auto) Lymph # (Auto) [place] # (Auto) Seg Neutrophils % Seg Neuts % (Manual) Lymphocytes % (Manual) Seg Neutrophils # Seg Neutrophils # Man Lymphocytes # (Manual) ABG pH ABG pO2 ABG HCO3 ABG O2 Saturation ABG Base Excess ABG Hemoglobin Sodium Potassium Chloride Carbon Dioxide BUN 42 H Creatinine 6.6 H Glucose 106 H POC Glucose 112 H Calcium Phosphorus Magnesium Iron TIBC Total Creatine Kinase Troponin T NT-Pro-B Natriuret Pep Total Protein Albumin PTH Intact Urine WBC (Auto) Urine Creatinine 11/27/21 11/27/21 11/27/21 04:45 04:45 17:05 WBC 12.4 H RBC 2.75 L Hgb 7.4 L Hct 24.3 L MCH 27 L MCHC 30 L RDW 18.0 H Lymph % (Auto) [place] % (Auto) Lymph # (Auto) [place] # (Auto) Seg Neutrophils % Seg Neuts % (Manual) Lymphocytes % (Manual) Seg Neutrophils # Seg Neutrophils # Man Lymphocytes # (Manual) ABG pH ABG pO2 ABG HCO3 ABG O2 Saturation ABG Base Excess ABG Hemoglobin Sodium Potassium Chloride Carbon Dioxide BUN 32 H Creatinine 5.0 H Glucose 112 H POC Glucose 110 H Calcium Phosphorus Magnesium Iron TIBC Total Creatine Kinase Troponin T NT-Pro-B Natriuret Pep Total Protein Albumin PTH Intact Urine WBC (Auto) Urine Creatinine 11/28/21 11/28/21 04:30 04:30 WBC 11.2 H RBC 2.71 L Hgb 7.4 L Hct 23.9 L MCH 27 L MCHC 31 L RDW 18.0 H Lymph % (Auto) [place] % (Auto) Lymph # (Auto) [place] # (Auto) Seg Neutrophils % Seg Neuts % (Manual) Lymphocytes % (Manual) Seg Neutrophils # Seg Neutrophils # Man Lymphocytes # (Manual) ABG pH ABG pO2 ABG HCO3 ABG O2 Saturation ABG Base Excess ABG Hemoglobin Sodium 136 L Potassium Chloride 95.4 L Carbon Dioxide BUN 49 H Creatinine 6.6 H Glucose POC Glucose Calcium Phosphorus Magnesium Iron TIBC Total Creatine Kinase Troponin T NT-Pro-B Natriuret Pep Total Protein Albumin PTH Intact Urine WBC (Auto) Urine Creatinine Allied health notes reviewed: nursing
--- NOTE | 2021-11-28 12:07 | Progress Note ---
Assessment and Plan Acute respiratory failure Pneumonia Hypoxia KD (acute kidney injury) on top of CKD Hyperkalemia Diabetes Elevated troponin Hypertension Obesity Acidosis Plan -HD today for clearance and volume removal -will assess HD needs daily -Renal ultrasound- Left kidney no visualized. No hydronephrosis to right kidney -Renally dose all medications -Obtain daily weights -Monitor I/O's daily -Assess dialysis needs daily Subjective Date of service: 11/28/21 Principal diagnosis: Acute respiratory failure, Interval history: in ICU, no family at bedside Objective - Vital Signs Vital signs: Vital Signs - 12hr 11/28/21 11/28/21 11/28/21 00:30 01:00 01:30 Temperature Pulse Rate 90 96 H 93 H Pulse Rate [ From Monitor] Respiratory 20 17 20 Rate Blood Pressure 132/76 132/76 O2 Sat by Pulse 98 100 96 Oximetry O2 Sat by Pulse Oximetry [ Assessment] 11/28/21 11/28/21 11/28/21 02:00 02:30 03:00 Temperature Pulse Rate 90 88 89 Pulse Rate [ From Monitor] Respiratory 20 20 20 Rate Blood Pressure 142/79 151/81 157/79 O2 Sat by Pulse 100 100 100 Oximetry O2 Sat by Pulse Oximetry [ Assessment] 11/28/21 11/28/21 11/28/21 03:30 03:31 04:00 Temperature 99.5 F Pulse Rate 88 89 Pulse Rate [ 88 From Monitor] Respiratory 20 20 Rate Blood Pressure 152/77 160/84 O2 Sat by Pulse 100 100 Oximetry O2 Sat by Pulse Oximetry [ Assessment] 11/28/21 11/28/21 11/28/21 04:30 05:00 05:30 Temperature Pulse Rate 88 89 Pulse Rate [ From Monitor] Respiratory 20 20 17 Rate Blood Pressure 148/80 160/84 163/84 O2 Sat by Pulse 100 99 99 Oximetry O2 Sat by Pulse Oximetry [ Assessment] 11/28/21 11/28/21 11/28/21 05:46 06:00 06:16 Temperature Pulse Rate 82 111 H 96 H Pulse Rate [ From Monitor] Respiratory 18 20 22 Rate Blood Pressure 163/84 163/84 140/80 O2 Sat by Pulse 100 99 100 Oximetry O2 Sat by Pulse Oximetry [ Assessment] 11/28/21 11/28/21 11/28/21 06:30 06:46 07:00 Temperature Pulse Rate 99 H 96 H 89 Pulse Rate [ From Monitor] Respiratory 14 18 16 Rate Blood Pressure 140/80 135/74 135/74 O2 Sat by Pulse 96 95 96 Oximetry O2 Sat by Pulse Oximetry [ Assessment] 11/28/21 11/28/21 11/28/21 07:16 07:30 07:46 Temperature Pulse Rate 87 93 H Pulse Rate [ From Monitor] Respiratory 21 19 Rate Blood Pressure 125/61 125/61 105/59 O2 Sat by Pulse 97 98 99 Oximetry O2 Sat by Pulse Oximetry [ Assessment] 11/28/21 11/28/21 11/28/21 08:00 08:15 08:16 Temperature 99.3 F Pulse Rate 88 89 87 Pulse Rate [ 90 From Monitor] Respiratory 20 20 Rate Blood Pressure 105/59 138/75 138/75 O2 Sat by Pulse 99 98 98 Oximetry O2 Sat by Pulse Oximetry [ Assessment] 11/28/21 11/28/21 11/28/21 08:24 08:30 09:06 Temperature Pulse Rate 85 85 Pulse Rate [ From Monitor] Respiratory 20 20 Rate Blood Pressure 138/75 O2 Sat by Pulse 98 97 Oximetry O2 Sat by Pulse 98 Oximetry [ Assessment] 11/28/21 11/28/21 11/28/21 09:15 09:30 09:45 Temperature Pulse Rate 86 85 85 Pulse Rate [ From Monitor] Respiratory 20 20 20 Rate Blood Pressure 138/73 138/73 O2 Sat by Pulse 97 98 98 Oximetry O2 Sat by Pulse Oximetry [ Assessment] 11/28/21 11/28/21 11/28/21 10:00 10:15 10:30 Temperature Pulse Rate 83 85 88 Pulse Rate [ From Monitor] Respiratory 20 20 18 Rate Blood Pressure 138/72 138/72 140/79 O2 Sat by Pulse 99 98 98 Oximetry O2 Sat by Pulse Oximetry [ Assessment] 11/28/21 11/28/21 11/28/21 10:45 11:01 11:15 Temperature Pulse Rate 84 88 90 Pulse Rate [ From Monitor] Respiratory 20 20 21 Rate Blood Pressure 140/79 119/65 119/65 O2 Sat by Pulse 99 97 97 Oximetry O2 Sat by Pulse Oximetry [ Assessment] 11/28/21 11/28/21 11/28/21 11:28 11:30 11:45 Temperature 99.5 F Pulse Rate 89 89 Pulse Rate [ From Monitor] Respiratory 23 22 Rate Blood Pressure 120/61 120/61 O2 Sat by Pulse 98 98 Oximetry O2 Sat by Pulse Oximetry [ Assessment] 11/28/21 12:00 Temperature Pulse Rate 88 Pulse Rate [ From Monitor] Respiratory 22 Rate Blood Pressure 121/64 O2 Sat by Pulse 97 Oximetry O2 Sat by Pulse Oximetry [ Assessment] - General Appearance General appearance: sedated on ventilator EENT: ATNC, PERRL, mucous membranes dry Neck: no JVD Respiratory: Present: Decreased Breath Sounds Cardiology: tachycardia Gastrointestinal: normoactive bowel sounds, no tenderness, no distended, no masses, obese Integumentary: no rash, warm and dry - Lab 11/28/21 04:30 11/28/21 04:30 Most recent lab results ABG pH 7.467 pH Units (7.350-7.450) H 11/18/21 04:35 ABG pCO2 37.1 mm Hg 11/18/21 04:35 ABG pO2 110.0 mm Hg (80.0-90.0) H 11/18/21 04:35 ABG HCO3 26.2 mmol/L (20.0-26.0) H 11/18/21 04:35 ABG O2 Saturation 98.1 % (95.0-99.0) 11/18/21 04:35 Calcium 8.7 mg/dL (8.4-10.2) 11/28/21 04:30 Phosphorus 3.20 mg/dL (2.5-4.5) 11/25/21 23:50 Magnesium 2.50 mg/dL (1.7-2.3) H 11/25/21 23:50 Urine Creatinine 189.3 mg/dL (0.1-20.0) H 11/12/21 02:20 Urine Sodium 30 mmol/L 11/12/21 02:20 Medications & Allergies - Medications Allergies/Adverse Reactions: Allergies No Known Allergies Allergy (Verified 11/11/21 20:58) Home Medications: Home Medications Medication Instructions Recorded Confirmed Last Taken Type No Known Home Medications [No 11/22/21 11/22/21 Unknown History Reported Home Medications] Active Medications: Generic Name Dose Route Start Last Admin Trade Name Freq PRN Reason Stop Dose Admin Acetaminophen 650 mg 11/11/21 22:40 Acetaminophen 325 Mg Tab PO Q4H PRN Pain MILD(1-3)/Fever >100.5/SOTO Albumin Human 12.5 gm 11/23/21 10:00 11/25/21 15:23 Albumin Human 25% (12.5 Gm/50 Ml) Inj IV 12.5 gm LONG PRN Administration Hypotension Albuterol 2.5 mg 11/11/21 22:40 Albuterol 2.5 Mg/3 Ml Nebu IH Q3HRT PRN Shortness Of Breath Aspirin 325 mg 11/17/21 10:00 11/28/21 09:30 Aspirin 325 Mg Tab FEEDTUBE 325 mg QDAY BAO Administration Atorvastatin Calcium 40 mg 11/17/21 22:00 11/27/21 22:06 Atorvastatin 40 Mg Tab FEEDTUBE 40 mg QHS BAO Administration Dextrose 50 ml 11/18/21 13:00 Dextrose 50% In Water (25gm) 50 Ml Syringe IV Q30MIN PRN Hypoglycemia Protocol Famotidine 20 mg 11/17/21 10:00 11/28/21 09:30 Famotidine 20 Mg Tab FEEDTUBE 20 mg QDAY BAO Administration Fentanyl 50 mcg 11/11/21 20:56 11/22/21 03:45 Fentanyl 100 Mcg/2 Ml Inj IV 50 mcg Q10MIN PRN Administration ANALGESIA Hydrophilic Ointment 1 applic 11/11/21 20:56 Lip Therapy Vaseline TP Q2HR PRN Dry Lips Fentanyl Citrate 2,000 mcg in 100 mls @ 13.608 mls/hr 11/11/21 21:00 11/24/21 18:06 Fentanyl Drip Premix IV 0 mcg/kg/hr TITR BAO 0 mls/hr Titration Protocol 1 MCG/KG/HR NORepinephrine/NS 8 MG-250 ML 8 mg in 250 mls @ 3.75 mls/hr 11/11/21 23:00 11/26/21 07:33 Norepinephrine/Ns 8 Mg-250 Ml (Double Conc) IV 0 mcg/min TITRATE BAO 0 mls/hr Titration Protocol 2 MCG/MIN Vasopressin 20 unit/ Sodium 101 mls @ 9.09 mls/hr 11/23/21 12:00 11/23/21 16:17 Chloride IV 0 units/min TITR BAO 0 mls/hr Titration Protocol 0.03 UNITS/MIN Sodium Chloride 1,000 mls @ 5 mls/hr 11/23/21 13:00 11/23/21 17:26 Nacl 0.9% 1000 Ml IV 0 mls/hr DIRECT BAO Infusion Sodium Chloride 100 mls @ 999 mls/hr 11/26/21 12:30 Nacl 0.9% IV LONG PRN Hypotension Insulin Human Lispro 0 unit 11/12/21 00:00 11/28/21 05:40 Insulin Lispro 100 Unit/Ml SUB-Q Not Given Q6HR [facility] Protocol Lorazepam 2 mg 11/21/21 11:00 11/26/21 20:55 Lorazepam 2 Mg/Ml Vial IV 2 mg Q4H PRN Administration Agitation Midodrine 10 mg 11/25/21 13:00 11/28/21 09:30 Midodrine 10 Mg Tab PO 10 mg TID@0800,1200,1600 BAO Administration Multi-Ingred Cream/Lotion/Oil/Oint 1 applic 11/11/21 20:56 Mineral Oil/Petrolatum, White Ophth Oint 3.5 Gm OU Q4HR PRN Dry Eye(s) Ondansetron HCl 4 mg 11/11/21 22:40 Ondansetron 4 Mg/2 Ml Inj IV Q8H PRN Nausea And Vomiting Polyethylene Glycol 17 gm 11/27/21 10:00 Polyethylene Glycol 3350 17 Gm Powder PO QDAY PRN Constip unreliev by MOM/or NPO Quetiapine Fumarate 50 mg 11/28/21 22:00 Quetiapine 25 Mg Tab FEEDTUBE QHS BAO Senna 8.6 mg 11/17/21 10:00 11/28/21 09:30 Sennosides 8.6 Mg Tab FEEDTUBE 8.6 mg Q12H BAO Administration Sodium Chloride 10 ml 11/12/21 10:00 11/28/21 09:30 Sodium Chloride 0.9% 10 Ml Flush Syringe IV 10 ml BID BAO Administration Sodium Chloride 10 ml 11/11/21 22:40 Sodium Chloride 0.9% 10 Ml Flush Syringe IV PRN PRN LINE FLUSH
[2021-11-28] MEDS: NORepinephrine/NS 8 MG-250 ML 8 MG/250 ML INFUS..BTL IV SCH (21:35)
[2021-11-28] MEDS: QUEtiapine 25 MG TAB FEEDTUBE SCH (22:15)
[2021-11-29] MEDS: INSULIN LISPRO 100 UNIT/ML SUB-Q SCH ×4 (00:31→18:55)
[2021-11-29 05:35] LABS: Hematocrit 24.3 % (35.5-45.6); Hemoglobin 7.6 gm/dl (11.8-15.2); Mean Corpuscular HGB Conc 31 % (32-34); Mean Corpuscular Volume 88 fl (84-94); Platelet Count 302 K/mm3 (140-440); Red Blood Count 2.76 M/mm3 (3.65-5.03); Red Cell Distribution Width 17.7 % (13.2-15.2)
[2021-11-29 06:05] LABS: Calcium 8.9 mg/dL (8.4-10.2)
[2021-11-29] MEDS: MIDODRINE 10 MG TAB PO SCH (08:45)
[2021-11-29] MEDS: FAMOTIDINE 20 MG TAB FEEDTUBE SCH (09:26)
[2021-11-29] MEDS: SENNOSIDES 8.6 MG TAB FEEDTUBE SCH ×2 (09:26→22:08)
[2021-11-29] MEDS: ASPIRIN 325 MG TAB FEEDTUBE SCH (09:26)
--- NOTE | 2021-11-29 10:48 | Progress Note ---
Assessment and Plan 56 y/o morbidly obese male with acute respiratory failure, requiring intubation and now in acute renal failure and in need of HD 11/29/21: Increase Midodrine to 15 TID. Continue nightly seroquel. HD per renal. Await Ltach placement 11/28/21: Daily PSV trials. HD today. Restarted antipsychotics at night. Seroquel at 50 11/27/21: Daily PSV trials. HD per renal. LTACH next week. Stopped Haldol today. 11/26/21: Can likely stop haldol today as delirium seems to be stablized. LTACH next week. 11/25/21: Continue scheduled haldol. Ok if renal wants to dialyze but would consider only cleaning and not fluid removal as pulm status is stable. LTACH placement 11/24/21: Start scheduled haldol and see if we can wean sedation of. Hold on HD today. LTACH. 11/23/21: Successful trach and peg on yesterday. HD today, post HD start weaning trials. Will need LTACH. Will ask renal about Permcath placement 11/22/21: Follow up post op. Will need LTACH. HD per renal, need to ask them if he will need permacath as well. 11/21/21: Reviewed Gen Surg note. Will reach out to them for further discussion. Continue aggressive volume removal. Wean Pressors as tolerated. 11/18/21: Await Gen Surg comments as they were checking on OR supplies. If not able to, will start working on transfer as patient will need trach given current clinical state. HD per renal. Wean pressors as tolerated. Guarded to poor prognosis. 11/17/21: Follow up Gen Surge eval, they are checking to see the materials they have in OR. Reviewed neck ultrasound, per their read trachea is only about an 1inch away from the skin. Shocking given his neck size but given the difficulty in intubation and his entrance being anterior, this makes sense. Will defer to surgery call but have no problem with calling for transfer as well. Wean Pressors as tolerated. HD per renal. Continue sedation for RASS of 0. Guarded to poor prognosis. 11/16/21: Given patient body habitus, difficult airway and likely no improvement in current clinical state, will need trach. However given his neck size, I would suggest this be done by ENT as I am not even sure that the bovona XLT is long enough. Ok to consult surgery here but I suggest seeking transfer to a tertiary care facility with ENT to attempt this. Also suggest obtaining neck CT to further evaluate total neck anatomy that way if we need to send this over prior to acceptance we can. Guarded prognosis but mental status is intact. HD per renal. 11/15/21: stop sedation. Attempt PSV. Bipap PRN and QHS. Hopeful extubation today. HD per renal. 11/14/21: Wean PEEP again today and attempt PSV trial. If passes will attempt extubation. HD per renal 11/13/21: HD per renal. No PSV trials today. Wean PEEP after HD. Guarded prognosis. 1. Obtain ABG 2. Place Iglesias catheter 3. Wean Pressors for maps greater than 65 4. Insulin, D50 for Hyperkalemia, and HD per renal 5. Stopped scheduled duonebs 6. Stopped abx 7. Obtain BNP with morning labs 8. Guarded prognosis. CCT 31 minutes. Subjective Date of service: 11/29/21 Principal diagnosis: Acute respiratory failure, Interval history: No acute events. Became hypotensive on HD yesterday, still hypotensive this am. Objective Vital Signs - 12hr 11/28/21 11/28/21 11/28/21 23:00 23:01 23:15 Temperature Pulse Rate 96 H 104 H Pulse Rate [ From Monitor] Pulse Rate [ 97 H None] Respiratory 21 12 15 Rate Blood Pressure 135/77 151/87 135/77 O2 Sat by Pulse 99 99 99 Oximetry O2 Sat by Pulse Oximetry [ Assessment] 11/28/21 11/28/21 11/28/21 23:30 23:39 23:45 Temperature Pulse Rate 100 H 94 H 97 H Pulse Rate [ From Monitor] Pulse Rate [ None] Respiratory 20 20 24 Rate Blood Pressure 127/74 127/74 127/74 O2 Sat by Pulse 99 99 99 Oximetry O2 Sat by Pulse Oximetry [ Assessment] 11/29/21 11/29/21 11/29/21 00:00 00:15 00:30 Temperature 99.1 F Pulse Rate 83 95 H 93 H Pulse Rate [ 96 H From Monitor] Pulse Rate [ None] Respiratory 18 20 20 Rate Blood Pressure 103/77 122/65 136/78 O2 Sat by Pulse 99 96 97 Oximetry O2 Sat by Pulse Oximetry [ Assessment] 11/29/21 11/29/21 11/29/21 01:00 01:30 02:00 Temperature Pulse Rate 92 H 93 H 92 H Pulse Rate [ From Monitor] Pulse Rate [ None] Respiratory 20 20 20 Rate Blood Pressure 131/73 135/79 123/71 O2 Sat by Pulse 98 100 98 Oximetry O2 Sat by Pulse Oximetry [ Assessment] 11/29/21 11/29/21 11/29/21 02:30 03:00 03:11 Temperature 98.7 F Pulse Rate 95 H 93 H Pulse Rate [ From Monitor] Pulse Rate [ None] Respiratory 20 20 Rate Blood Pressure 132/75 126/75 O2 Sat by Pulse 98 99 Oximetry O2 Sat by Pulse Oximetry [ Assessment] 11/29/21 11/29/21 11/29/21 03:30 04:00 04:30 Temperature Pulse Rate 93 H 88 95 H Pulse Rate [ 97 H From Monitor] Pulse Rate [ None] Respiratory 20 17 20 Rate Blood Pressure 118/73 100/56 124/74 O2 Sat by Pulse 98 99 98 Oximetry O2 Sat by Pulse Oximetry [ Assessment] 11/29/21 11/29/21 11/29/21 05:00 05:30 06:00 Temperature Pulse Rate 93 H 96 H 108 H Pulse Rate [ From Monitor] Pulse Rate [ None] Respiratory 20 19 21 Rate Blood Pressure 114/68 116/69 102/48 O2 Sat by Pulse 99 98 97 Oximetry O2 Sat by Pulse Oximetry [ Assessment] 11/29/21 11/29/21 11/29/21 06:30 07:00 07:30 Temperature Pulse Rate 99 H 99 H 99 H Pulse Rate [ From Monitor] Pulse Rate [ None] Respiratory 19 19 20 Rate Blood Pressure 101/46 112/53 98/53 O2 Sat by Pulse 97 98 98 Oximetry O2 Sat by Pulse Oximetry [ Assessment] 11/29/21 11/29/21 11/29/21 07:54 07:59 08:00 Temperature Pulse Rate 96 H 94 H Pulse Rate [ From Monitor] Pulse Rate [ None] Respiratory 18 Rate Blood Pressure 98/53 O2 Sat by Pulse 97 98 Oximetry O2 Sat by Pulse 96 Oximetry [ Assessment] 11/29/21 08:30 Temperature Pulse Rate 98 H Pulse Rate [ From Monitor] Pulse Rate [ None] Respiratory 19 Rate Blood Pressure 40/20 O2 Sat by Pulse 97 Oximetry O2 Sat by Pulse Oximetry [ Assessment] Constitutional: comatose Eyes: non-icteric ENT: other (orally intubated and sedated) Neck: supple, other (large in circumference) Effort: normal Ascultation: Bilateral: diminished breath sounds Cardiovascular: regular rate and rhythm Gastrointestinal: normoactive bowel sounds Extremities: edema, anasarca Neurologic: unable to assess CBC and BMP: 11/29/21 05:25 11/29/21 05:25 ABG, PT/INR, D-dimer: ABG ABG pH 7.467 pH Units (7.350-7.450) H 11/18/21 04:35 ABG pCO2 37.1 mm Hg 11/18/21 04:35 ABG pO2 110.0 mm Hg (80.0-90.0) H 11/18/21 04:35 ABG O2 Saturation 98.1 % (95.0-99.0) 11/18/21 04:35 PT/INR, D-dimer PT 14.4 Sec. (12.2-14.9) 11/22/21 04:00 INR 1.01 (0.87-1.13) 11/22/21 04:00 Abnormal lab findings: Abnormal Labs 11/11/21 11/11/21 11/11/21 19:49 19:49 23:29 WBC 11.5 H RBC Hgb 10.1 L Hct 34.8 L MCH 27 L MCHC 29 L RDW 20.1 H Lymph % (Auto) 10.0 L [place] % (Auto) 8.8 H Lymph # (Auto) 1.1 L [place] # (Auto) 1.0 H Seg Neutrophils % 79.8 H Seg Neuts % (Manual) Lymphocytes % (Manual) Seg Neutrophils # 9.2 H Seg Neutrophils # Man Lymphocytes # (Manual) ABG pH ABG pO2 ABG HCO3 ABG O2 Saturation ABG Base Excess ABG Hemoglobin Sodium Potassium 7.6 H* Chloride 107.8 H Carbon Dioxide 13 L BUN 107 H Creatinine 13.8 H Glucose POC Glucose Calcium 7.5 L Phosphorus Magnesium Iron TIBC Total Creatine Kinase 268 H Troponin T 0.324 H* NT-Pro-B Natriuret Pep Total Protein 9.1 H Albumin 3.0 L PTH Intact Urine WBC (Auto) Urine Creatinine 11/11/21 11/11/21 11/12/21 23:29 23:29 02:20 WBC RBC Hgb Hct MCH MCHC RDW Lymph % (Auto) [place] % (Auto) Lymph # (Auto) [place] # (Auto) Seg Neutrophils % Seg Neuts % (Manual) Lymphocytes % (Manual) Seg Neutrophils # Seg Neutrophils # Man Lymphocytes # (Manual) ABG pH ABG pO2 ABG HCO3 ABG O2 Saturation ABG Base Excess ABG Hemoglobin Sodium Potassium Chloride Carbon Dioxide BUN Creatinine Glucose POC Glucose Calcium Phosphorus Magnesium Iron 24 L TIBC 157 L Total Creatine Kinase Troponin T NT-Pro-B Natriuret Pep Total Protein Albumin PTH Intact 1174 H Urine WBC (Auto) Urine Creatinine 189.3 H 11/12/21 11/12/21 11/12/21 02:20 02:28 06:55 WBC 20.5 H RBC 3.54 L Hgb 9.4 L Hct 32.3 L MCH 27 L MCHC 29 L RDW 20.0 H Lymph % (Auto) [place] % (Auto) Lymph # (Auto) [place] # (Auto) Seg Neutrophils % Seg Neuts % (Manual) 89.0 H Lymphocytes % (Manual) 0 L Seg Neutrophils # Seg Neutrophils # Man 18.2 H Lymphocytes # (Manual) 0.0 L ABG pH 7.172 L* ABG pO2 100.6 H ABG HCO3 17.4 L ABG O2 Saturation ABG Base Excess -10.6 L ABG Hemoglobin 9.4 L Sodium Potassium Chloride Carbon Dioxide BUN Creatinine Glucose POC Glucose Calcium Phosphorus Magnesium Iron TIBC Total Creatine Kinase Troponin T NT-Pro-B Natriuret Pep Total Protein Albumin PTH Intact Urine WBC (Auto) 12.0 H Urine Creatinine 11/12/21 11/12/21 11/12/21 06:55 09:10 12:01 WBC RBC Hgb Hct MCH MCHC RDW Lymph % (Auto) [place] % (Auto) Lymph # (Auto) [place] # (Auto) Seg Neutrophils % Seg Neuts % (Manual) Lymphocytes % (Manual) Seg Neutrophils # Seg Neutrophils # Man Lymphocytes # (Manual) ABG pH 7.296 L ABG pO2 237.3 H ABG HCO3 ABG O2 Saturation 99.3 H ABG Base Excess -6.0 L ABG Hemoglobin 8.8 L Sodium Potassium 5.5 H D Chloride 107.1 H Carbon Dioxide 19 L BUN 78 H Creatinine 9.4 H Glucose 119 H POC Glucose 106 H Calcium 8.1 L Phosphorus Magnesium Iron TIBC Total Creatine Kinase Troponin T NT-Pro-B Natriuret Pep Total Protein Albumin PTH Intact Urine WBC (Auto) Urine Creatinine 11/12/21 11/12/21 11/12/21 16:46 16:46 22:30 WBC RBC Hgb Hct MCH MCHC RDW Lymph % (Auto) [place] % (Auto) Lymph # (Auto) [place] # (Auto) Seg Neutrophils % Seg Neuts % (Manual) Lymphocytes % (Manual) Seg Neutrophils # Seg Neutrophils # Man Lymphocytes # (Manual) ABG pH ABG pO2 ABG HCO3 ABG O2 Saturation ABG Base Excess ABG Hemoglobin Sodium 146 H Potassium Chloride 108.2 H Carbon Dioxide 21 L BUN 66 H Creatinine 9.8 H Glucose 125 H POC Glucose Calcium 7.8 L Phosphorus Magnesium Iron TIBC Total Creatine Kinase Troponin T 0.319 H* 0.313 H* NT-Pro-B Natriuret Pep Total Protein Albumin PTH Intact Urine WBC (Auto) Urine Creatinine 11/12/21 11/12/21 11/13/21 23:18 Unknown 04:00 WBC 17.2 H RBC 3.09 L Hgb 8.4 L Hct 27.5 L MCH 27 L MCHC 30 L RDW 19.6 H Lymph % (Auto) [place] % (Auto) Lymph # (Auto) [place] # (Auto) Seg Neutrophils % Seg Neuts % (Manual) Lymphocytes % (Manual) Seg Neutrophils # Seg Neutrophils # Man Lymphocytes # (Manual) ABG pH ABG pO2 ABG HCO3 ABG O2 Saturation ABG Base Excess ABG Hemoglobin Sodium Potassium Chloride Carbon Dioxide BUN Creatinine Glucose POC Glucose 120 H Calcium Phosphorus Magnesium Iron TIBC Total Creatine Kinase Troponin T NT-Pro-B Natriuret Pep 3674 H Total Protein Albumin PTH Intact Urine WBC (Auto) Urine Creatinine 11/13/21 11/13/21 11/13/21 04:00 04:00 05:23 WBC RBC Hgb Hct MCH MCHC RDW Lymph % (Auto) [place] % (Auto) Lymph # (Auto) [place] # (Auto) Seg Neutrophils % Seg Neuts % (Manual) Lymphocytes % (Manual) Seg Neutrophils # Seg Neutrophils # Man Lymphocytes # (Manual) ABG pH 7.274 L ABG pO2 93.2 H ABG HCO3 ABG O2 Saturation ABG Base Excess -3.9 L ABG Hemoglobin 8.2 L Sodium Potassium Chloride Carbon Dioxide 21 L BUN 71 H Creatinine 9.9 H Glucose 128 H POC Glucose 117 H Calcium 7.7 L Phosphorus 5.10 H Magnesium 1.60 L Iron TIBC Total Creatine Kinase Troponin T NT-Pro-B Natriuret Pep Total Protein Albumin PTH Intact Urine WBC (Auto) Urine Creatinine 11/13/21 11/13/21 11/14/21 16:20 23:31 04:10 WBC RBC Hgb Hct MCH MCHC RDW Lymph % (Auto) [place] % (Auto) Lymph # (Auto) [place] # (Auto) Seg Neutrophils % Seg Neuts % (Manual) Lymphocytes % (Manual) Seg Neutrophils # Seg Neutrophils # Man Lymphocytes # (Manual) ABG pH ABG pO2 107.1 H ABG HCO3 ABG O2 Saturation ABG Base Excess ABG Hemoglobin 6.5 L Sodium Potassium Chloride Carbon Dioxide BUN Creatinine Glucose POC Glucose 125 H 123 H Calcium Phosphorus Magnesium Iron TIBC Total Creatine Kinase Troponin T NT-Pro-B Natriuret Pep Total Protein Albumin PTH Intact Urine WBC (Auto) Urine Creatinine 11/14/21 11/14/21 11/14/21 06:30 06:30 15:00 WBC 11.2 H RBC 3.03 L Hgb 8.1 L Hct 26.6 L MCH 27 L MCHC 30 L RDW 19.3 H Lymph % (Auto) [place] % (Auto) Lymph # (Auto) [place] # (Auto) Seg Neutrophils % Seg Neuts % (Manual) Lymphocytes % (Manual) Seg Neutrophils # Seg Neutrophils # Man Lymphocytes # (Manual) ABG pH ABG pO2 ABG HCO3 ABG O2 Saturation ABG Base Excess ABG Hemoglobin Sodium Potassium 3.0 L D 3.4 L Chloride Carbon Dioxide BUN 41 H Creatinine 7.0 H Glucose 107 H POC Glucose Calcium 7.5 L Phosphorus Magnesium 1.60 L Iron TIBC Total Creatine Kinase Troponin T NT-Pro-B Natriuret Pep Total Protein Albumin PTH Intact Urine WBC (Auto) Urine Creatinine 11/14/21 11/15/21 11/15/21 17:24 04:00 04:00 WBC 11.3 H RBC 3.00 L Hgb 8.1 L Hct 26.3 L MCH 27 L MCHC 31 L RDW 19.2 H Lymph % (Auto) [place] % (Auto) Lymph # (Auto) [place] # (Auto) Seg Neutrophils % Seg Neuts % (Manual) Lymphocytes % (Manual) Seg Neutrophils # Seg Neutrophils # Man Lymphocytes # (Manual) ABG pH ABG pO2 ABG HCO3 ABG O2 Saturation ABG Base Excess ABG Hemoglobin Sodium Potassium 3.4 L Chloride Carbon Dioxide BUN 32 H Creatinine 5.9 H Glucose 117 H POC Glucose 124 H Calcium 8.3 L Phosphorus Magnesium Iron TIBC Total Creatine Kinase Troponin T NT-Pro-B Natriuret Pep Total Protein Albumin PTH Intact Urine WBC (Auto) Urine Creatinine 11/15/21 11/15/21 11/16/21 13:58 16:20 04:00 WBC 13.2 H RBC 2.88 L Hgb 7.8 L Hct 25.2 L MCH 27 L MCHC 31 L RDW 19.1 H Lymph % (Auto) [place] % (Auto) Lymph # (Auto) [place] # (Auto) Seg Neutrophils % Seg Neuts % (Manual) Lymphocytes % (Manual) Seg Neutrophils # Seg Neutrophils # Man Lymphocytes # (Manual) ABG pH 7.335 L ABG pO2 254.0 H ABG HCO3 26.2 H ABG O2 Saturation 99.4 H ABG Base Excess ABG Hemoglobin 8.5 L Sodium Potassium Chloride Carbon Dioxide BUN Creatinine Glucose POC Glucose 132 H Calcium Phosphorus Magnesium Iron TIBC Total Creatine Kinase Troponin T NT-Pro-B Natriuret Pep Total Protein Albumin PTH Intact Urine WBC (Auto) Urine Creatinine 11/16/21 11/16/21 11/16/21 04:00 04:05 11:06 WBC RBC Hgb Hct MCH MCHC RDW Lymph % (Auto) [place] % (Auto) Lymph # (Auto) [place] # (Auto) Seg Neutrophils % Seg Neuts % (Manual) Lymphocytes % (Manual) Seg Neutrophils # Seg Neutrophils # Man Lymphocytes # (Manual) ABG pH ABG pO2 115.6 H ABG HCO3 ABG O2 Saturation ABG Base Excess ABG Hemoglobin 8.1 L Sodium Potassium Chloride Carbon Dioxide BUN 44 H Creatinine 7.7 H Glucose 104 H POC Glucose 106 H Calcium 7.9 L Phosphorus Magnesium Iron TIBC Total Creatine Kinase Troponin T NT-Pro-B Natriuret Pep Total Protein Albumin PTH Intact Urine WBC (Auto) Urine Creatinine 11/16/21 11/16/21 11/17/21 18:05 23:51 04:15 WBC 11.8 H RBC 3.02 L Hgb 8.1 L Hct 26.9 L MCH 27 L MCHC 30 L RDW 18.9 H Lymph % (Auto) [place] % (Auto) Lymph # (Auto) [place] # (Auto) Seg Neutrophils % Seg Neuts % (Manual) Lymphocytes % (Manual) Seg Neutrophils # Seg Neutrophils # Man Lymphocytes # (Manual) ABG pH ABG pO2 ABG HCO3 ABG O2 Saturation ABG Base Excess ABG Hemoglobin Sodium Potassium Chloride Carbon Dioxide BUN Creatinine Glucose POC Glucose 109 H 118 H Calcium Phosphorus Magnesium Iron TIBC Total Creatine Kinase Troponin T NT-Pro-B Natriuret Pep Total Protein Albumin PTH Intact Urine WBC (Auto) Urine Creatinine 11/17/21 11/17/21 11/17/21 04:15 04:25 11:25 WBC RBC Hgb Hct MCH MCHC RDW Lymph % (Auto) [place] % (Auto) Lymph # (Auto) [place] # (Auto) Seg Neutrophils % Seg Neuts % (Manual) Lymphocytes % (Manual) Seg Neutrophils # Seg Neutrophils # Man Lymphocytes # (Manual) ABG pH ABG pO2 153.8 H ABG HCO3 ABG O2 Saturation ABG Base Excess ABG Hemoglobin 8.3 L Sodium Potassium Chloride Carbon Dioxide BUN 33 H Creatinine 6.2 H Glucose 118 H POC Glucose 108 H Calcium Phosphorus Magnesium Iron TIBC Total Creatine Kinase Troponin T NT-Pro-B Natriuret Pep Total Protein Albumin PTH Intact Urine WBC (Auto) Urine Creatinine 11/18/21 11/18/21 11/18/21 04:00 04:00 04:35 WBC RBC 2.88 L Hgb 7.8 L Hct 25.3 L MCH 27 L MCHC 31 L RDW 18.7 H Lymph % (Auto) [place] % (Auto) Lymph # (Auto) [place] # (Auto) Seg Neutrophils % Seg Neuts % (Manual) Lymphocytes % (Manual) Seg Neutrophils # Seg Neutrophils # Man Lymphocytes # (Manual) ABG pH 7.467 H ABG pO2 110.0 H ABG HCO3 26.2 H ABG O2 Saturation ABG Base Excess ABG Hemoglobin 8.1 L Sodium Potassium Chloride Carbon Dioxide BUN 28 H Creatinine 5.5 H Glucose POC Glucose Calcium Phosphorus Magnesium Iron TIBC Total Creatine Kinase Troponin T NT-Pro-B Natriuret Pep Total Protein Albumin PTH Intact Urine WBC (Auto) Urine Creatinine 11/18/21 11/19/21 11/19/21 11:50 04:00 11:30 WBC RBC Hgb Hct MCH MCHC RDW Lymph % (Auto) [place] % (Auto) Lymph # (Auto) [place] # (Auto) Seg Neutrophils % Seg Neuts % (Manual) Lymphocytes % (Manual) Seg Neutrophils # Seg Neutrophils # Man Lymphocytes # (Manual) ABG pH ABG pO2 ABG HCO3 ABG O2 Saturation ABG Base Excess ABG Hemoglobin Sodium Potassium Chloride Carbon Dioxide BUN 26 H Creatinine 4.7 H Glucose 110 H POC Glucose 131 H 106 H Calcium Phosphorus Magnesium Iron TIBC Total Creatine Kinase Troponin T NT-Pro-B Natriuret Pep Total Protein Albumin PTH Intact Urine WBC (Auto) Urine Creatinine 11/19/21 11/20/21 11/20/21 17:09 00:14 04:00 WBC RBC Hgb Hct MCH MCHC RDW Lymph % (Auto) [place] % (Auto) Lymph # (Auto) [place] # (Auto) Seg Neutrophils % Seg Neuts % (Manual) Lymphocytes % (Manual) Seg Neutrophils # Seg Neutrophils # Man Lymphocytes # (Manual) ABG pH ABG pO2 ABG HCO3 ABG O2 Saturation ABG Base Excess ABG Hemoglobin Sodium 134 L Potassium Chloride 94.4 L Carbon Dioxide BUN 25 H Creatinine 4.6 H Glucose 117 H POC Glucose 129 H 115 H Calcium Phosphorus Magnesium Iron TIBC Total Creatine Kinase Troponin T NT-Pro-B Natriuret Pep Total Protein Albumin PTH Intact Urine WBC (Auto) Urine Creatinine 11/20/21 11/21/21 11/21/21 11:36 04:00 04:00 WBC 12.0 H RBC 2.85 L Hgb 7.8 L Hct 24.8 L MCH MCHC RDW 18.5 H Lymph % (Auto) [place] % (Auto) Lymph # (Auto) [place] # (Auto) Seg Neutrophils % Seg Neuts % (Manual) Lymphocytes % (Manual) Seg Neutrophils # Seg Neutrophils # Man Lymphocytes # (Manual) ABG pH ABG pO2 ABG HCO3 ABG O2 Saturation ABG Base Excess ABG Hemoglobin Sodium 133 L Potassium Chloride 95.3 L Carbon Dioxide BUN 40 H Creatinine 6.2 H Glucose 103 H POC Glucose 117 H Calcium Phosphorus Magnesium Iron TIBC Total Creatine Kinase Troponin T NT-Pro-B Natriuret Pep Total Protein Albumin PTH Intact Urine WBC (Auto) Urine Creatinine 11/21/21 11/21/21 11/22/21 11:38 18:13 00:41 WBC RBC Hgb Hct MCH MCHC RDW Lymph % (Auto) [place] % (Auto) Lymph # (Auto) [place] # (Auto) Seg Neutrophils % Seg Neuts % (Manual) Lymphocytes % (Manual) Seg Neutrophils # Seg Neutrophils # Man Lymphocytes # (Manual) ABG pH ABG pO2 ABG HCO3 ABG O2 Saturation ABG Base Excess ABG Hemoglobin Sodium Potassium Chloride Carbon Dioxide BUN Creatinine Glucose POC Glucose 127 H 112 H 106 H Calcium Phosphorus Magnesium Iron TIBC Total Creatine Kinase Troponin T NT-Pro-B Natriuret Pep Total Protein Albumin PTH Intact Urine WBC (Auto) Urine Creatinine 11/22/21 11/22/21 11/22/21 04:00 04:00 08:30 WBC 16.1 H 14.8 H RBC 3.01 L 2.95 L Hgb 8.1 L 7.8 L Hct 26.6 L 26.3 L MCH 27 L 27 L MCHC 31 L 30 L RDW 18.3 H 18.9 H Lymph % (Auto) 5.7 L [place] % (Auto) 13.0 H Lymph # (Auto) 0.8 L [place] # (Auto) 1.9 H Seg Neutrophils % 79.5 H Seg Neuts % (Manual) Lymphocytes % (Manual) Seg Neutrophils # 11.8 H Seg Neutrophils # Man Lymphocytes # (Manual) ABG pH ABG pO2 ABG HCO3 ABG O2 Saturation ABG Base Excess ABG Hemoglobin Sodium 136 L Potassium Chloride 97.6 L Carbon Dioxide BUN 35 H Creatinine 5.8 H Glucose 120 H POC Glucose Calcium Phosphorus 4.80 H D Magnesium 3.80 H Iron TIBC Total Creatine Kinase Troponin T NT-Pro-B Natriuret Pep Total Protein Albumin PTH Intact Urine WBC (Auto) Urine Creatinine 11/22/21 11/22/21 11/23/21 08:30 16:39 04:00 WBC 13.7 H RBC 2.93 L Hgb 7.8 L Hct 25.7 L MCH 27 L MCHC 30 L RDW 18.5 H Lymph % (Auto) [place] % (Auto) Lymph # (Auto) [place] # (Auto) Seg Neutrophils % Seg Neuts % (Manual) Lymphocytes % (Manual) Seg Neutrophils # Seg Neutrophils # Man Lymphocytes # (Manual) ABG pH ABG pO2 ABG HCO3 ABG O2 Saturation ABG Base Excess ABG Hemoglobin Sodium Potassium 5.3 H Chloride Carbon Dioxide BUN 36 H Creatinine 6.1 H Glucose 117 H POC Glucose 119 H Calcium Phosphorus Magnesium Iron TIBC Total Creatine Kinase 534 H Troponin T 0.294 H* NT-Pro-B Natriuret Pep Total Protein Albumin PTH Intact Urine WBC (Auto) Urine Creatinine 11/23/21 11/23/21 11/23/21 04:00 11:56 17:20 WBC RBC Hgb Hct MCH MCHC RDW Lymph % (Auto) [place] % (Auto) Lymph # (Auto) [place] # (Auto) Seg Neutrophils % Seg Neuts % (Manual) Lymphocytes % (Manual) Seg Neutrophils # Seg Neutrophils # Man Lymphocytes # (Manual) ABG pH ABG pO2 ABG HCO3 ABG O2 Saturation ABG Base Excess ABG Hemoglobin Sodium Potassium Chloride Carbon Dioxide BUN 27 H Creatinine 5.1 H Glucose 106 H POC Glucose 118 H 110 H Calcium Phosphorus Magnesium Iron TIBC Total Creatine Kinase Troponin T NT-Pro-B Natriuret Pep Total Protein Albumin PTH Intact Urine WBC (Auto) Urine Creatinine 11/24/21 11/24/21 11/24/21 04:30 04:30 05:30 WBC 14.0 H RBC 2.77 L Hgb 7.4 L Hct 24.4 L MCH 27 L MCHC 30 L RDW 18.5 H Lymph % (Auto) [place] % (Auto) Lymph # (Auto) [place] # (Auto) Seg Neutrophils % Seg Neuts % (Manual) Lymphocytes % (Manual) Seg Neutrophils # Seg Neutrophils # Man Lymphocytes # (Manual) ABG pH ABG pO2 ABG HCO3 ABG O2 Saturation ABG Base Excess ABG Hemoglobin Sodium Potassium Chloride 97.5 L Carbon Dioxide BUN 35 H Creatinine 6.1 H Glucose POC Glucose 107 H Calcium Phosphorus Magnesium Iron TIBC Total Creatine Kinase Troponin T NT-Pro-B Natriuret Pep Total Protein Albumin PTH Intact Urine WBC (Auto) Urine Creatinine 11/24/21 11/24/21 11/25/21 11:21 18:04 17:47 WBC RBC Hgb Hct MCH MCHC RDW Lymph % (Auto) [place] % (Auto) Lymph # (Auto) [place] # (Auto) Seg Neutrophils % Seg Neuts % (Manual) Lymphocytes % (Manual) Seg Neutrophils # Seg Neutrophils # Man Lymphocytes # (Manual) ABG pH ABG pO2 ABG HCO3 ABG O2 Saturation ABG Base Excess ABG Hemoglobin Sodium Potassium Chloride Carbon Dioxide BUN Creatinine Glucose POC Glucose 107 H 107 H 124 H Calcium Phosphorus Magnesium Iron TIBC Total Creatine Kinase Troponin T NT-Pro-B Natriuret Pep Total Protein Albumin PTH Intact Urine WBC (Auto) Urine Creatinine 11/25/21 11/25/21 11/25/21 23:40 23:50 23:50 WBC 14.1 H RBC 2.57 L Hgb 7.3 L Hct 22.7 L MCH MCHC RDW 17.9 H Lymph % (Auto) [place] % (Auto) Lymph # (Auto) [place] # (Auto) Seg Neutrophils % Seg Neuts % (Manual) Lymphocytes % (Manual) Seg Neutrophils # Seg Neutrophils # Man Lymphocytes # (Manual) ABG pH ABG pO2 ABG HCO3 ABG O2 Saturation ABG Base Excess ABG Hemoglobin Sodium Potassium Chloride Carbon Dioxide BUN 34 H Creatinine 5.5 H Glucose 117 H POC Glucose 106 H Calcium Phosphorus Magnesium 2.50 H Iron TIBC Total Creatine Kinase Troponin T NT-Pro-B Natriuret Pep Total Protein Albumin PTH Intact Urine WBC (Auto) Urine Creatinine 11/26/21 11/26/21 11/26/21 10:41 10:46 17:28 WBC 12.5 H RBC 2.69 L Hgb 7.2 L Hct 23.8 L MCH 27 L MCHC 30 L RDW 17.7 H Lymph % (Auto) [place] % (Auto) Lymph # (Auto) [place] # (Auto) Seg Neutrophils % Seg Neuts % (Manual) Lymphocytes % (Manual) Seg Neutrophils # Seg Neutrophils # Man Lymphocytes # (Manual) ABG pH ABG pO2 ABG HCO3 ABG O2 Saturation ABG Base Excess ABG Hemoglobin Sodium Potassium Chloride Carbon Dioxide BUN 42 H Creatinine 6.6 H Glucose 106 H POC Glucose 112 H Calcium Phosphorus Magnesium Iron TIBC Total Creatine Kinase Troponin T NT-Pro-B Natriuret Pep Total Protein Albumin PTH Intact Urine WBC (Auto) Urine Creatinine 11/27/21 11/27/21 11/27/21 04:45 04:45 17:05 WBC 12.4 H RBC 2.75 L Hgb 7.4 L Hct 24.3 L MCH 27 L MCHC 30 L RDW 18.0 H Lymph % (Auto) [place] % (Auto) Lymph # (Auto) [place] # (Auto) Seg Neutrophils % Seg Neuts % (Manual) Lymphocytes % (Manual) Seg Neutrophils # Seg Neutrophils # Man Lymphocytes # (Manual) ABG pH ABG pO2 ABG HCO3 ABG O2 Saturation ABG Base Excess ABG Hemoglobin Sodium Potassium Chloride Carbon Dioxide BUN 32 H Creatinine 5.0 H Glucose 112 H POC Glucose 110 H Calcium Phosphorus Magnesium Iron TIBC Total Creatine Kinase Troponin T NT-Pro-B Natriuret Pep Total Protein Albumin PTH Intact Urine WBC (Auto) Urine Creatinine 11/28/21 11/28/21 11/28/21 04:30 04:30 17:43 WBC 11.2 H RBC 2.71 L Hgb 7.4 L Hct 23.9 L MCH 27 L MCHC 31 L RDW 18.0 H Lymph % (Auto) [place] % (Auto) Lymph # (Auto) [place] # (Auto) Seg Neutrophils % Seg Neuts % (Manual) Lymphocytes % (Manual) Seg Neutrophils # Seg Neutrophils # Man Lymphocytes # (Manual) ABG pH ABG pO2 ABG HCO3 ABG O2 Saturation ABG Base Excess ABG Hemoglobin Sodium 136 L Potassium Chloride 95.4 L Carbon Dioxide BUN 49 H Creatinine 6.6 H Glucose POC Glucose 107 H Calcium Phosphorus Magnesium Iron TIBC Total Creatine Kinase Troponin T NT-Pro-B Natriuret Pep Total Protein Albumin PTH Intact Urine WBC (Auto) Urine Creatinine 11/29/21 11/29/21 05:25 05:25 WBC RBC 2.76 L Hgb 7.6 L Hct 24.3 L MCH 27 L MCHC 31 L RDW 17.7 H Lymph % (Auto) [place] % (Auto) Lymph # (Auto) [place] # (Auto) Seg Neutrophils % Seg Neuts % (Manual) Lymphocytes % (Manual) Seg Neutrophils # Seg Neutrophils # Man Lymphocytes # (Manual) ABG pH ABG pO2 ABG HCO3 ABG O2 Saturation ABG Base Excess ABG Hemoglobin Sodium 136 L Potassium Chloride 96.5 L Carbon Dioxide BUN 40 H Creatinine 6.1 H Glucose 110 H POC Glucose Calcium Phosphorus Magnesium Iron TIBC Total Creatine Kinase Troponin T NT-Pro-B Natriuret Pep Total Protein Albumin PTH Intact Urine WBC (Auto) Urine Creatinine Allied health notes reviewed: nursing
--- NOTE | 2021-11-29 11:53 | Progress Note ---
Assessment and Plan Acute respiratory failure Pneumonia Hypoxia KD (acute kidney injury) on top of CKD Hyperkalemia Diabetes Elevated troponin Hypertension Obesity Acidosis Plan -no indication for HD today -will need permcath prior to discharge -will assess HD needs daily -Renal ultrasound- Left kidney no visualized. No hydronephrosis to right kidney -Renally dose all medications -Obtain daily weights -Monitor I/O's daily -Assess dialysis needs daily Subjective Date of service: 11/29/21 Principal diagnosis: Acute respiratory failure, Interval history: in ICU, no family at bedside, on the vent Objective - Vital Signs Vital signs: Vital Signs - 12hr 11/29/21 11/29/21 11/29/21 00:00 00:15 00:30 Temperature 99.1 F Pulse Rate 83 95 H 93 H Pulse Rate [ 96 H From Monitor] Respiratory 18 20 20 Rate Blood Pressure 103/77 122/65 136/78 O2 Sat by Pulse 99 96 97 Oximetry O2 Sat by Pulse Oximetry [ Assessment] 11/29/21 11/29/21 11/29/21 01:00 01:30 02:00 Temperature Pulse Rate 92 H 93 H 92 H Pulse Rate [ From Monitor] Respiratory 20 20 20 Rate Blood Pressure 131/73 135/79 123/71 O2 Sat by Pulse 98 100 98 Oximetry O2 Sat by Pulse Oximetry [ Assessment] 11/29/21 11/29/21 11/29/21 02:30 03:00 03:11 Temperature 98.7 F Pulse Rate 95 H 93 H Pulse Rate [ From Monitor] Respiratory 20 20 Rate Blood Pressure 132/75 126/75 O2 Sat by Pulse 98 99 Oximetry O2 Sat by Pulse Oximetry [ Assessment] 11/29/21 11/29/21 11/29/21 03:30 04:00 04:30 Temperature Pulse Rate 93 H 88 95 H Pulse Rate [ 97 H From Monitor] Respiratory 20 17 20 Rate Blood Pressure 118/73 100/56 124/74 O2 Sat by Pulse 98 99 98 Oximetry O2 Sat by Pulse Oximetry [ Assessment] 11/29/21 11/29/21 11/29/21 05:00 05:30 06:00 Temperature Pulse Rate 93 H 96 H 108 H Pulse Rate [ From Monitor] Respiratory 20 19 21 Rate Blood Pressure 114/68 116/69 102/48 O2 Sat by Pulse 99 98 97 Oximetry O2 Sat by Pulse Oximetry [ Assessment] 11/29/21 11/29/21 11/29/21 06:30 07:00 07:30 Temperature Pulse Rate 99 H 99 H 99 H Pulse Rate [ From Monitor] Respiratory 19 19 20 Rate Blood Pressure 101/46 112/53 98/53 O2 Sat by Pulse 97 98 98 Oximetry O2 Sat by Pulse Oximetry [ Assessment] 11/29/21 11/29/21 11/29/21 07:54 07:59 08:00 Temperature Pulse Rate 96 H 94 H Pulse Rate [ From Monitor] Respiratory 18 Rate Blood Pressure 98/53 O2 Sat by Pulse 97 98 Oximetry O2 Sat by Pulse 96 Oximetry [ Assessment] 11/29/21 11/29/21 11/29/21 08:30 09:00 09:30 Temperature Pulse Rate 98 H 94 H 92 H Pulse Rate [ From Monitor] Respiratory 19 20 19 Rate Blood Pressure 40/20 98/66 103/62 O2 Sat by Pulse 97 97 99 Oximetry O2 Sat by Pulse Oximetry [ Assessment] 11/29/21 11/29/21 11/29/21 10:00 10:30 11:00 Temperature Pulse Rate 91 H 93 H 96 H Pulse Rate [ From Monitor] Respiratory 23 23 23 Rate Blood Pressure 52/21 118/62 112/61 O2 Sat by Pulse 97 98 97 Oximetry O2 Sat by Pulse Oximetry [ Assessment] 11/29/21 11:29 Temperature Pulse Rate 92 H Pulse Rate [ From Monitor] Respiratory 24 Rate Blood Pressure 113/57 O2 Sat by Pulse 98 Oximetry O2 Sat by Pulse Oximetry [ Assessment] - General Appearance General appearance: well-developed, well-nourished, sedated on ventilator EENT: PERRL, mucous membranes dry Neck: no JVD Respiratory: Present: Decreased Breath Sounds Cardiology: tachycardia Gastrointestinal: normoactive bowel sounds, no tenderness, no distended, no masses, obese Integumentary: no rash, warm and dry Neurologic: other (on the vent) Musculoskeletal: other (non pitting edema in BLE) - Lab 11/29/21 05:25 11/29/21 05:25 Most recent lab results ABG pH 7.467 pH Units (7.350-7.450) H 11/18/21 04:35 ABG pCO2 37.1 mm Hg 11/18/21 04:35 ABG pO2 110.0 mm Hg (80.0-90.0) H 11/18/21 04:35 ABG HCO3 26.2 mmol/L (20.0-26.0) H 11/18/21 04:35 ABG O2 Saturation 98.1 % (95.0-99.0) 11/18/21 04:35 Calcium 8.9 mg/dL (8.4-10.2) 11/29/21 05:25 Phosphorus 3.30 mg/dL (2.5-4.5) 11/29/21 05:25 Magnesium 2.20 mg/dL (1.7-2.3) 11/29/21 05:25 Urine Creatinine 189.3 mg/dL (0.1-20.0) H 11/12/21 02:20 Urine Sodium 30 mmol/L 11/12/21 02:20 Medications & Allergies - Medications Allergies/Adverse Reactions: Allergies No Known Allergies Allergy (Verified 11/11/21 20:58) Home Medications: Home Medications Medication Instructions Recorded Confirmed Last Taken Type No Known Home Medications [No 11/22/21 11/22/21 Unknown History Reported Home Medications] Active Medications: Generic Name Dose Route Start Last Admin Trade Name Freq PRN Reason Stop Dose Admin Acetaminophen 650 mg 11/11/21 22:40 Acetaminophen 325 Mg Tab PO Q4H PRN Pain MILD(1-3)/Fever >100.5/SOTO Albumin Human 12.5 gm 11/23/21 10:00 11/25/21 15:23 Albumin Human 25% (12.5 Gm/50 Ml) Inj IV 12.5 gm LONG PRN Administration Hypotension Albuterol 2.5 mg 11/11/21 22:40 Albuterol 2.5 Mg/3 Ml Nebu IH Q3HRT PRN Shortness Of Breath Aspirin 325 mg 11/17/21 10:00 11/29/21 09:26 Aspirin 325 Mg Tab FEEDTUBE 325 mg QDAY BAO Administration Atorvastatin Calcium 40 mg 11/17/21 22:00 11/28/21 22:15 Atorvastatin 40 Mg Tab FEEDTUBE 40 mg QHS BAO Administration Dextrose 50 ml 11/18/21 13:00 Dextrose 50% In Water (25gm) 50 Ml Syringe IV Q30MIN PRN Hypoglycemia Protocol Famotidine 20 mg 11/17/21 10:00 11/29/21 09:26 Famotidine 20 Mg Tab FEEDTUBE 20 mg QDAY BAO Administration Hydrophilic Ointment 1 applic 11/11/21 20:56 Lip Therapy Vaseline TP Q2HR PRN Dry Lips Sodium Chloride 100 mls @ 999 mls/hr 11/26/21 12:30 Nacl 0.9% IV LONG PRN Hypotension NORepinephrine/NS 8 MG-250 ML 8 mg in 250 mls @ 3.75 mls/hr 11/29/21 11:00 Norepinephrine/Ns 8 Mg-250 Ml (Double Conc) IV TITRATE [facility] Protocol 2 MCG/MIN Insulin Human Lispro 0 unit 11/12/21 00:00 11/29/21 06:25 Insulin Lispro 100 Unit/Ml SUB-Q Not Given Q6HR [facility] Protocol Lorazepam 2 mg 11/21/21 11:00 11/26/21 20:55 Lorazepam 2 Mg/Ml Vial IV 2 mg Q4H PRN Administration Agitation Midodrine 15 mg 11/29/21 12:00 Midodrine 5 Mg Tab PO TID@0800,1200,1600 [facility] Multi-Ingred Cream/Lotion/Oil/Oint 1 applic 11/11/21 20:56 Mineral Oil/Petrolatum, White Ophth Oint 3.5 Gm OU Q4HR PRN Dry Eye(s) Ondansetron HCl 4 mg 11/11/21 22:40 Ondansetron 4 Mg/2 Ml Inj IV Q8H PRN Nausea And Vomiting Polyethylene Glycol 17 gm 11/27/21 10:00 Polyethylene Glycol 3350 17 Gm Powder PO QDAY PRN Constip unreliev by MOM/or NPO Quetiapine Fumarate 50 mg 11/28/21 22:00 11/28/21 22:15 Quetiapine 25 Mg Tab FEEDTUBE 50 mg QHS BAO Administration Senna 8.6 mg 11/17/21 10:00 11/29/21 09:26 Sennosides 8.6 Mg Tab FEEDTUBE 8.6 mg Q12H BAO Administration Sodium Chloride 10 ml 11/12/21 10:00 11/29/21 09:26 Sodium Chloride 0.9% 10 Ml Flush Syringe IV 10 ml BID BAO Administration Sodium Chloride 10 ml 11/11/21 22:40 Sodium Chloride 0.9% 10 Ml Flush Syringe IV PRN PRN LINE FLUSH
[2021-11-29] MEDS: MIDODRINE 5 MG TAB PO SCH ×2 (13:42→18:55)
--- NOTE | 2021-11-29 18:21 | Progress Note ---
Assessment and Plan Assessment and plan: This is a 56-year-old male with DM, HTN, obesity, currently bedbound and past intubations admitted with acute hypoxic respiratory failure and acute renal failure Hospital course to date: 11/12: Overnight patient received a dialysis catheter and was initiated on dialysis. Iglesias catheter was also placed. Antibiotics discontinued. proBNP pending. Decrease in FiO2 related to ABG. Echocardiogram pending. Patient given X1 for potassium 5.5 and nutrition consulted for tube feedings. updated brother at bedside 11/13: Propofol letter for sedation as patient seems restless on the ventilator only on fentanyl. HD scheduled for today. [facility] plans to conduct PSV possibly Sunday. 11/14: Tolerated HD overnight, 2L removed. Plan for possible HD again today. Patient is tolerating PST today on low dose fentanyl, plan for possible extubation tomorrow. 11/15: SANA overnight. Remains on the vent and on low dose sedation. Continue to tolerate HD. Plan for PST and possible extubation today. 11/16: Failed extubation yesterday and had to be emergently reintubated due to hypoxia and decreased LOC. Patient is stable on the vent this am, remains on low dose sedation, while awake and following commands. CCM recommendations noted due to patient's body habitus, he might need to be trach/Peg. CT neck was canceled due to weight limit. General Surgery consulted for Trach/PEG eval. 11/17: Remains on the vent, sedation increased overnight due to increased agitation and low dose pressors were initiated. Patient tolerated HD yesterday, plan for HD again today. Plan for possible trach/PEG vs possible transfer for ENT eval for trach/PEG. Awaiting on General surgery recommendations. 11/18: SANA overnight. D/w [facility] plan for US thyroid biopsy per General Surgery recommendation due thyroid nodule to r/o malignancy. Patient remains on low dose levophed gtt. Continue HD per Nephro. 11/19: Periods of low SPO2 overnight which resolved with deep suctioning. Patient remains on low dose vent setting, no respiratory distress noted this am. Patient remains on sedation and low dose levophed, MAP in the 70s, continue to wean pressors for MAP above 65. Pending US biopsy of the thyroid for possible trach per General Surgery. 11/20: SANA overnight. Remains on low dose pressors, continue to wean for MAP above 65. Pending US guided thyroid biopsy for possible trach/PEG per General Surgery. 11/21: Trach/PEG postponed till tomorrow. Neurology consult completed who recommended MRI brain and EEG. NGT will be replaced. Will give mag citrate once placed has patient has not had a BM since 11/17 11/22: Patient had a trach/PEG placed today. Will remain n.p.o. till tomorrow morning. On palpation right wrist may have dislocation, x-ray ordered. Confirmed dislocation. Will order sling. 11/23: Attempted hemodialysis today at bedside however unable to record blood pressure and he was given albumin and and started on Levophed. Levophed was still maxed at 30 mcg and vasopressin was added. 1 dose of hydrocortisone 100 mg did not yield results. Attempts to place a line was unsuccessful however blood pressure reading was in the 180s and hemodialysis was resumed. Shortly after resumption patient became hypotensive and was again maxed on Levophed. Hemodialysis was abandoned. 11/24: Haldol scheduled for possibly delirium per CCM, RN to attempt to decrease sedation as tolerated. RT asked to place on SPT. 11/25: CAM ICU negative, started on Levophed overnight, added midodrine. HD orders noted 11/26: HD planned today. Patient seems to be comfortable. RT placed on PSV. 11/28: Remains stable on the vent, tolerated PST over the weekend. Continue daily PST. qHs Seroquel added to promote rest and maintain sleep-wake cycle. Plan for HD today per Nephro. Possible LTAC placement, case management to arrange. 11/29: Hypotensive during HD overnight, required short duration of levophed gtt. Pressors are off this am, midodrine increased to 15mg TID. Awaiting LTAC placement, case management to arrange. Assessment and Plan Neuro: Acute metabolic encephalopathy -Remains on the vent, drowsy this am -Restlessness and Insomnia -qHs Seroquel added -Monitor Qtc -Avoid delirium -Reorientation as needed -Maintain sleep-wake cycle -aspiration/seizure precautions -As needed analgesia for CPOT greater than 3 -Neurology on consult Cardiac: h/o HTN, elevated troponins -Cardiology consulted, appreciate recommendations -S/p vasopressor support -Now on Midodrine -Echocardiogram shows ejection fraction greater than 70 -Blood pressure monitoring per protocol -Maintain MAP above 65 Respiratory: Acute hypoxic respiratory failure, ? [facility] -[facility] consulted, appreciate recommendations -Intubated in the emergency department on 11/04 -11/15 Failed extubation had to be emergently reintubated due to hypoxia and de creased LOC -4/5 s/p Trach/PEG placement -Vent settings: PRVC-30%,6,20,550 -VAP bundle addressed -Aspiration precaution HOB above 30 -Daily PSV trials as tolerated -PRN ABG and CXR per [facility] -Continue SPO2 monitoring for SPO2 goal above 92% GI: Protin calorie malnutrition, Morbid obesity -4/5 s/p PEGTube placement -Continue enteral nutrition -NTR consulted for tube feedings -BR: Colace : Acute Renal Failure -FeNa 1.04% indicating either ATN or prerenal state -Nephrology consulted, appreciate recommendations -Vas-Cath placed at HD initiated 11/12 -HD per nephrology -Strict intake and output -Renally dose medications -Avoid nephrotoxic medications -Daily weights -Renal ultrasound pending -Trend BMP -Repeat magnesium Endo:Thyroid Nodule h/o DM -Head/neck ultrasound showed left thyroid lobe nodule is a T1 RADS category 3 lesion, current recommendation is follow-up in 1 year -Reexamination by Dr. Gutierrez showed nodule approximately 2.3 cm in maximum dimension. Rec. Follow-up at 1, 3, 5-year intervals to be appropriate -Hemoglobin A1c 5.7 -SSI -Accu-Cheks q. 6 -Avoid hypoglycemia GI/DVT Prophylaxis -PPI- Pepcid -Heparin SubQ The high probability of a clinically significant, sudden or life threatening deterioration of the [multi] system(s) required my full and direct attention, intervention and personal management. The aggregate critical care time was [60] minutes. This time is in addition to time spent performing reported procedures but includes the following: [x] Data Review and interpretation [x] Patient assessment and monitoring of vital signs [x] Documentation [x] Medication orders and management Disposition Plan: ICU Total Time Spent with Patient (Minutes): 60 History Interval history: Patient seen and examined at the bedside. Remains stable on the vent. Required short duration of levophed gtt during HD overnight, pressor is off this am, VSS. Hospitalist Physical - Constitutional Vitals: Temp Pulse Resp BP Pulse Ox 97.9 F 95 H 24 102/66 98 11/29/21 16:00 11/29/21 16:00 11/29/21 16:00 11/29/21 16:00 11/29/21 16:00 General appearance: Present: no acute distress, obese, other (tracheostomy, on the vent) - EENT Eyes: Present: PERRL ENT: hearing intact - Neck Neck: Present: normal ROM - Respiratory Respiratory effort: normal Respiratory: bilateral: rhonchi - Cardiovascular Rhythm: regular Heart Sounds: Present: S1 & S2 - Extremities Extremities: no ischemia, pulses intact, pulses symmetrical Extremity abnormal: edema - Peripheral Assessment Generalized Edema Type: Non-pitting Edema Degree: 3+ Capillary Refill: < 3 seconds Skin Temperature: Warm Peripheral Pulses: within normal limits - Abdominal General gastrointestinal: soft, non-distended, normal bowel sounds - Integumentary Integumentary: Present: warm, dry - Psychiatric Psychiatric: appropriate mood/affect, cooperative, other (tracheostomy, on the vent) - Neurologic Neurologic: moves all extremities (Except Rt wrist, chronic fracture), other (tracheostomy, on the vent) - Allied Health Allied health notes reviewed: nursing, case management HEART Score - HEART Score Troponin: Troponin T 0.294 ng/mL (0.00-0.029) H* 11/22/21 08:30 Results - Labs CBC & Chem 7: 11/29/21 05:25 11/29/21 05:25 Labs: Laboratory Last Values WBC 9.4 K/mm3 (4.5-11.0) 11/29/21 05:25 RBC 2.76 M/mm3 (3.65-5.03) L 11/29/21 05:25 Hgb 7.6 gm/dl (11.8-15.2) L 11/29/21 05:25 Hct 24.3 % (35.5-45.6) L 11/29/21 05:25 MCV 88 fl (84-94) 11/29/21 05:25 MCH 27 pg (28-32) L 11/29/21 05:25 MCHC 31 % (32-34) L 11/29/21 05:25 RDW 17.7 % (13.2-15.2) H 11/29/21 05:25 Plt Count 302 K/mm3 (140-440) 11/29/21 05:25 Lymph % (Auto) 5.7 % (13.4-35.0) L 11/22/21 08:30 [place] % (Auto) 13.0 % (0.0-7.3) H 11/22/21 08:30 Eos % (Auto) 1.4 % (0.0-4.3) 11/22/21 08:30 Baso % (Auto) 0.4 % (0.0-1.8) 11/22/21 08:30 Lymph # (Auto) 0.8 K/mm3 (1.2-5.4) L 11/22/21 08:30 [place] # (Auto) 1.9 K/mm3 (0.0-0.8) H 11/22/21 08:30 Eos # (Auto) 0.2 K/mm3 (0.0-0.4) 11/22/21 08:30 Baso # (Auto) 0.1 K/mm3 (0.0-0.1) 11/22/21 08:30 Add Manual Diff Complete 11/12/21 06:55 Total Counted 100 11/12/21 06:55 Seg Neutrophils % 79.5 % (40.0-70.0) H 11/22/21 08:30 Seg Neuts % (Manual) 89.0 % (40.0-70.0) H 11/12/21 06:55 Band Neutrophils % 5.0 % 11/12/21 06:55 Lymphocytes % (Manual) 0 % (13.4-35.0) L 11/12/21 06:55 Reactive Lymphs % (Man) 0 % 11/12/21 06:55 Monocytes % (Manual) 3.0 % (0.0-7.3) 11/12/21 06:55 Eosinophils % (Manual) 0 % (0.0-4.3) 11/12/21 06:55 Basophils % (Manual) 0 % (0.0-1.8) 11/12/21 06:55 Metamyelocytes % 3.0 % 11/12/21 06:55 Myelocytes % 0 % 11/12/21 06:55 Promyelocytes % 0 % 11/12/21 06:55 Blast Cells % 0 % 11/12/21 06:55 Nucleated RBC % Not Reportable 11/12/21 06:55 Seg Neutrophils # 11.8 K/mm3 (1.8-7.7) H 11/22/21 08:30 Seg Neutrophils # Man 18.2 K/mm3 (1.8-7.7) H 11/12/21 06:55 Band Neutrophils # 1.0 K/mm3 11/12/21 06:55 Lymphocytes # (Manual) 0.0 K/mm3 (1.2-5.4) L 11/12/21 06:55 Abs React Lymphs (Man) 0.0 K/mm3 11/12/21 06:55 Monocytes # (Manual) 0.6 K/mm3 (0.0-0.8) 11/12/21 06:55 Eosinophils # (Manual) 0.0 K/mm3 (0.0-0.4) 11/12/21 06:55 Basophils # (Manual) 0.0 K/mm3 (0.0-0.1) 11/12/21 06:55 Metamyelocytes # 0.6 K/mm3 11/12/21 06:55 Myelocytes # 0.0 K/mm3 11/12/21 06:55 Promyelocytes # 0.0 K/mm3 11/12/21 06:55 Blast Cells # 0.0 K/mm3 11/12/21 06:55 WBC Morphology Not Reportable 11/12/21 06:55 Hypersegmented Neuts Not Reportable 11/12/21 06:55 Hyposegmented Neuts Not Reportable 11/12/21 06:55 Hypogranular Neuts Not Reportable 11/12/21 06:55 Smudge Cells Not Reportable 11/12/21 06:55 Toxic Granulation 1+ 11/12/21 06:55 Toxic Vacuolation Not Reportable 11/12/21 06:55 Dohle Bodies Not Reportable 11/12/21 06:55 Pelger-Huet Anomaly Not Reportable 11/12/21 06:55 Lissa Rods Not Reportable 11/12/21 06:55 Platelet Estimate Consistent w auto 11/12/21 06:55 Clumped Platelets Not Reportable 11/12/21 06:55 Plt Clumps, EDTA Not Reportable 11/12/21 06:55 Large Platelets Not Reportable 11/12/21 06:55 Giant Platelets Not Reportable 11/12/21 06:55 Platelet Satelliting Not Reportable 11/12/21 06:55 Plt Morphology Comment Not Reportable 11/12/21 06:55 RBC Morphology Normal 11/12/21 06:55 Dimorphic RBCs Not Reportable 11/12/21 06:55 Polychromasia Not Reportable 11/12/21 06:55 Hypochromasia Not Reportable 11/12/21 06:55 Poikilocytosis Not Reportable 11/12/21 06:55 Anisocytosis Not Reportable 11/12/21 06:55 Microcytosis Not Reportable 11/12/21 06:55 Macrocytosis Not Reportable 11/12/21 06:55 Spherocytes Not Reportable 11/12/21 06:55 Pappenheimer Bodies Not Reportable 11/12/21 06:55 Sickle Cells Not Reportable 11/12/21 06:55 Target Cells Not Reportable 11/12/21 06:55 Tear Drop Cells Not Reportable 11/12/21 06:55 Ovalocytes Not Reportable 11/12/21 06:55 Helmet Cells Not Reportable 11/12/21 06:55 Shea-Premont Bodies Not Reportable 11/12/21 06:55 [place] Rings Not Reportable 11/12/21 06:55 [place] Cells Not Reportable 11/12/21 06:55 Bite Cells Not Reportable 11/12/21 06:55 Crenated Cell Not Reportable 11/12/21 06:55 Elliptocytes Not Reportable 11/12/21 06:55 Acanthocytes (Spur) Not Reportable 11/12/21 06:55 Rouleaux Not Reportable 11/12/21 06:55 Hemoglobin C Crystals Not Reportable 11/12/21 06:55 Schistocytes Not Reportable 11/12/21 06:55 Malaria parasites Not Reportable 11/12/21 06:55 Nam Bodies Not Reportable 11/12/21 06:55 Hem Pathologist Commnt No 11/12/21 06:55 PT 14.4 Sec. (12.2-14.9) 11/22/21 04:00 INR 1.01 (0.87-1.13) 11/22/21 04:00 ABG pH 7.467 pH Units (7.350-7.450) H 11/18/21 04:35 ABG pCO2 37.1 mm Hg 11/18/21 04:35 ABG pO2 110.0 mm Hg (80.0-90.0) H 11/18/21 04:35 ABG HCO3 26.2 mmol/L (20.0-26.0) H 11/18/21 04:35 ABG O2 Saturation 98.1 % (95.0-99.0) 11/18/21 04:35 ABG O2 Content 11.3 (0.0-44) 11/18/21 04:35 ABG Base Excess 2.4 mmol/L (-2.0-3.0) 11/18/21 04:35 ABG Hemoglobin 8.1 gm/dl (14.0-18.0) L 11/18/21 04:35 ABG Carboxyhemoglobin 1.2 % (0.0-5.0) 11/18/21 04:35 ABG Methemoglobin 0.4 % (0.0-1.5) 11/18/21 04:35 Oxyhemoglobin 96.5 % (95.0-99.0) 11/18/21 04:35 FiO2 30 % 11/18/21 04:35 Sodium 136 mmol/L (137-145) L 11/29/21 05:25 Potassium 4.0 mmol/L (3.6-5.0) 11/29/21 05:25 Chloride 96.5 mmol/L (98-107) L 11/29/21 05:25 Carbon Dioxide 27 mmol/L (22-30) 11/29/21 05:25 Anion Gap 17 mmol/L 11/29/21 05:25 BUN 40 mg/dL (9-20) H 11/29/21 05:25 Creatinine 6.1 mg/dL (0.8-1.3) H 11/29/21 05:25 Estimated GFR 12 ml/min 11/29/21 05:25 BUN/Creatinine Ratio 7 % 11/29/21 05:25 Glucose 110 mg/dL (75-100) H 11/29/21 05:25 POC Glucose 111 mg/dL (70-105) H 11/29/21 11:37 Hemoglobin A1c 5.7 % (4-6) 11/12/21 06:55 Lactic Acid 0.90 mmol/L (0.7-2.0) 11/11/21 19:49 Calcium 8.9 mg/dL (8.4-10.2) 11/29/21 05:25 Phosphorus 3.30 mg/dL (2.5-4.5) 11/29/21 05:25 Magnesium 2.20 mg/dL (1.7-2.3) 11/29/21 05:25 Iron 24 ug/dL (49-181) L 11/11/21 23:29 TIBC 157 mcg/dL (250-450) L 11/11/21 23:29 Total Bilirubin 0.40 mg/dL (0.1-1.2) 11/11/21 19:49 AST 10 units/L (5-40) 11/11/21 19:49 ALT 7 units/L (7-56) 11/11/21 19:49 Alkaline Phosphatase 111 units/L (35-129) 11/11/21 19:49 Total Creatine Kinase 534 units/L (55-170) H 11/22/21 08:30 CK-MB (CK-2) 2.4 ng/mL (0.0-4.0) 11/22/21 08:30 CK-MB (CK-2) Rel Index 0.4 (0-4) 11/22/21 08:30 Troponin T 0.294 ng/mL (0.00-0.029) H* 11/22/21 08:30 NT-Pro-B Natriuret Pep 3674 pg/mL (0-900) H 11/12/21 Unknown Total Protein 9.1 g/dL (6.3-8.2) H 11/11/21 19:49 Albumin 3.0 g/dL (3.9-5) L 11/11/21 19:49 Albumin/Globulin Ratio 0.5 % 11/11/21 19:49 Triglycerides 109 mg/dL (2-149) 11/21/21 04:00 Cholesterol 146 mg/dL (50-199) 11/11/21 19:49 LDL Cholesterol Direct 85 mg/dL (50-130) 11/11/21 19:49 HDL Cholesterol 43 mg/dL (40-59) 11/11/21 19:49 Cholesterol/HDL Ratio 3.39 % 11/11/21 19:49 PTH Intact 1174 pg/mL (15-65) H 11/11/21 23:29 Urine Color Yellow (Yellow) 11/12/21 02:20 Urine Turbidity Cloudy (Clear) 11/12/21 02:20 Urine pH 5.0 (5.0-7.0) 11/12/21 02:20 Ur Specific [place] 1.013 (1.003-1.030) 11/12/21 02:20 Urine Protein >500 mg/dL (Negative) 11/12/21 02:20 Urine Glucose (UA) Neg mg/dL (Negative) 11/12/21 02:20 Urine Ketones Neg mg/dL (Negative) 11/12/21 02:20 Urine Blood Sm (Negative) 11/12/21 02:20 Urine Nitrite Neg (Negative) 11/12/21 02:20 Urine Bilirubin Neg (Negative) 11/12/21 02:20 Urine Urobilinogen < 2.0 mg/dL (<2.0) 11/12/21 02:20 Ur Leukocyte Esterase Tr (Negative) 11/12/21 02:20 Urine WBC (Auto) 12.0 /HPF (0.0-6.0) H 11/12/21 02:20 Urine RBC (Auto) 4.0 /HPF (0.0-6.0) 11/12/21 02:20 U Epithel Cells (Auto) 9.0 /HPF (0-13.0) 11/12/21 02:20 Urine Bacteria (Auto) 2+ /HPF (Negative) 11/12/21 02:20 Urine Mucus Few /HPF 11/12/21 02:20 Urine Yeast (Budding) 3+ /HPF 11/12/21 02:20 Urine Eosinophils None seen (None Seen) 11/12/21 02:20 Urine Creatinine 189.3 mg/dL (0.1-20.0) H 11/12/21 02:20 Urine Sodium 30 mmol/L 11/12/21 02:20 Coronavirus (PCR) Negative (Negative) 11/22/21 Unknown Hepatitis A IgM Ab Non-reactive (NonReactive) 11/12/21 04:45 Hep Bs Antigen Non-reactive (Negative) 11/12/21 04:45 Hep B Core IgM Ab Non-reactive (NonReactive) 11/12/21 04:45 Hepatitis C Antibody Non-reactive (NonReactive) 11/12/21 04:45 Blood Type O POSITIVE 11/22/21 04:20 Antibody Screen Negative 11/22/21 04:20 Iglesias/IV: Voiding Method Incontinent Active Medications - Current Medications Current Medications: Generic Name Dose Route Start Last Admin Trade Name Freq PRN Reason Stop Dose Admin Acetaminophen 650 mg 11/11/21 22:40 Acetaminophen 325 Mg Tab PO Q4H PRN Pain MILD(1-3)/Fever >100.5/SOTO Albumin Human 12.5 gm 11/23/21 10:00 11/25/21 15:23 Albumin Human 25% (12.5 Gm/50 Ml) Inj IV 12.5 gm LONG PRN Administration Hypotension Albuterol 2.5 mg 11/11/21 22:40 Albuterol 2.5 Mg/3 Ml Nebu IH Q3HRT PRN Shortness Of Breath Aspirin 325 mg 11/17/21 10:00 11/29/21 09:26 Aspirin 325 Mg Tab FEEDTUBE 325 mg QDAY BAO Administration Atorvastatin Calcium 40 mg 11/17/21 22:00 11/28/21 22:15 Atorvastatin 40 Mg Tab FEEDTUBE 40 mg QHS BAO Administration Dextrose 50 ml 11/18/21 13:00 Dextrose 50% In Water (25gm) 50 Ml Syringe IV Q30MIN PRN Hypoglycemia Protocol Famotidine 20 mg 11/17/21 10:00 11/29/21 09:26 Famotidine 20 Mg Tab FEEDTUBE 20 mg QDAY BAO Administration Hydrophilic Ointment 1 applic 11/11/21 20:56 Lip Therapy Vaseline TP Q2HR PRN Dry Lips Sodium Chloride 100 mls @ 999 mls/hr 11/26/21 12:30 Nacl 0.9% IV LONG PRN Hypotension NORepinephrine/NS 8 MG-250 ML 8 mg in 250 mls @ 3.75 mls/hr 11/29/21 11:00 Norepinephrine/Ns 8 Mg-250 Ml (Double Conc) IV TITRATE BAO Protocol 2 MCG/MIN Insulin Human Lispro 0 unit 11/12/21 00:00 11/29/21 12:41 Insulin Lispro 100 Unit/Ml SUB-Q Not Given Q6HR BAO Protocol Lorazepam 2 mg 11/21/21 11:00 11/26/21 20:55 Lorazepam 2 Mg/Ml Vial IV 2 mg Q4H PRN Administration Agitation Midodrine 15 mg 11/29/21 12:00 11/29/21 13:42 Midodrine 5 Mg Tab PO 15 mg TID@0800,1200,1600 BAO Administration Multi-Ingred Cream/Lotion/Oil/Oint 1 applic 11/11/21 20:56 Mineral Oil/Petrolatum, White Ophth Oint 3.5 Gm OU Q4HR PRN Dry Eye(s) Ondansetron HCl 4 mg 11/11/21 22:40 Ondansetron 4 Mg/2 Ml Inj IV Q8H PRN Nausea And Vomiting Polyethylene Glycol 17 gm 11/27/21 10:00 Polyethylene Glycol 3350 17 Gm Powder PO QDAY PRN Constip unreliev by MOM/or NPO Quetiapine Fumarate 50 mg 11/28/21 22:00 11/28/21 22:15 Quetiapine 25 Mg Tab FEEDTUBE 50 mg QHS BAO Administration Senna 8.6 mg 11/17/21 10:00 11/29/21 09:26 Sennosides 8.6 Mg Tab FEEDTUBE 8.6 mg Q12H BAO Administration Sodium Chloride 10 ml 11/12/21 10:00 11/29/21 09:26 Sodium Chloride 0.9% 10 Ml Flush Syringe IV 10 ml BID BAO Administration Sodium Chloride 10 ml 11/11/21 22:40 Sodium Chloride 0.9% 10 Ml Flush Syringe IV PRN PRN LINE FLUSH Nutrition/Malnutrition Assess - Dietary Evaluation Nutrition/Malnutrition Findings: Nutrition Notes Start: 11/12/21 16:08 Freq: Status: Active Protocol: Document 11/28/21 15:01 TODD (Rec: 11/28/21 15:12 [facility] [id number]) Nutrition Notes Initial or Follow up Reassessment Current Diagnosis Acute Kidney Injury,Diabetes, Hypertension,Respiratory Failure Other Pertinent Diagnosis Pneu Current Diet TF - Nepro at 50ml/hr Labs/Tests Na 136 BUN 49 Cr 6.6 Pertinent Medications Reviewed Height 5 ft 9 in Weight 272.155 kg [place] Body Weight (kg) 72.72 BMI 88.6 Weight change and time frame Unsure of current wt as bed scale not functioning properly ; scale needs to be re-zeroed Weight Status Morbidly Obese Subjective/Other Information Pt tolerating TF at goal rate. He remains on vent support. Trach and PEG tubes placed on 11/22. Pt had 2 large, loose stools on 11/26. Percent of energy/protein needs met: 99% energy 53% pro Burn Absent Trauma Absent #1 Nutrition Diagnosis Inadequate oral intake Diagnosis Progress(for reassessment Continues documentation) Is patient on ventilator? Yes Is Patient Ambulatory and/or Out of Bed No REE-([facility]-confined to bed) 4258.320 Kcal/Kg value to use for calculation 8 Approximate Energy Requirements Using 2177 kcal/Kg Calculation Used for Recommendations Kcal/kg Additional Notes Pro needs up to 2.5g/kg IBW: 182g/day Fluid needs 1-1.5L/day Nutrition Intervention Nutrition Support: Continue Nepro at 50ml/hr with 60ml water flush q4h (per MD order sec to hyponatremia). Kcal 2,160 Protein (gm) 97 Carbohydrates (gm) 193 Fat (gm) 115 Fluid (mL) 872 Fiber (gm) 15 Goal #1 TF tolerance Goal #2 TF to meet energy and pro needs as best possible Follow-Up By: 12/05/21 Additional Comments F/U: stable TF, wt, vent status, renal function
[2021-11-29] MEDS: QUEtiapine 25 MG TAB FEEDTUBE SCH (22:08)
[2021-11-30] MEDS: INSULIN LISPRO 100 UNIT/ML SUB-Q SCH ×4 (00:14→18:25)
[2021-11-30 05:12] LABS: Calcium 8.6 mg/dL (8.4-10.2)
[2021-11-30] MEDS: MIDODRINE 5 MG TAB PO SCH ×3 (08:40→16:41)
[2021-11-30] MEDS: ASPIRIN 325 MG TAB FEEDTUBE SCH (09:39)
[2021-11-30] MEDS: FAMOTIDINE 20 MG TAB FEEDTUBE SCH (09:40)
[2021-11-30] MEDS: SENNOSIDES 8.6 MG TAB FEEDTUBE SCH ×2 (09:41→21:09)
--- NOTE | 2021-11-30 13:22 | Progress Note ---
Assessment and Plan Assessment Acute respiratory failure Pneumonia Hypoxia KD (acute kidney injury) on top of CKD Hyperkalemia Diabetes Elevated troponin Hypertension Obesity Acidosis Plan -Renal labs reviewed. Serum creatinine 7.7 today, yesterday's was 6.1 -Hemodialysis today for UF and clearance via vasc cath -Consulted IR for perm-catheter placement prior to discharge -Renal ultrasound- Left kidney no visualized. No hydronephrosis to right kidney -Renally dose all medications -Obtain daily weights -Monitor I/O's daily -Assess dialysis needs daily -Plan to be discharge to [facility] today -Plan of care reviewed by Dr. Ya Subjective Date of service: 11/30/21 Principal diagnosis: Acute respiratory failure, Interval history: Awake. Has PEG tube and Trach. No family at bedside. Objective - Vital Signs Vital signs: Vital Signs - 12hr 11/30/21 11/30/21 11/30/21 01:31 01:35 02:00 Temperature Pulse Rate 97 H 92 H Pulse Rate [ From Monitor] Respiratory 18 20 Rate Blood Pressure 114/58 108/61 O2 Sat by Pulse 93 100 Oximetry O2 Sat by Pulse Oximetry [ Assessment] 11/30/21 11/30/21 11/30/21 02:30 03:00 03:30 Temperature Pulse Rate 88 92 H 92 H Pulse Rate [ From Monitor] Respiratory 20 16 18 Rate Blood Pressure 135/79 124/73 103/67 O2 Sat by Pulse 99 99 100 Oximetry O2 Sat by Pulse Oximetry [ Assessment] 11/30/21 11/30/21 11/30/21 04:00 04:21 04:30 Temperature 98.5 F Pulse Rate 91 H 91 H 89 Pulse Rate [ 91 H From Monitor] Respiratory 20 17 Rate Blood Pressure 129/83 129/83 137/78 O2 Sat by Pulse 100 100 100 Oximetry O2 Sat by Pulse Oximetry [ Assessment] 11/30/21 11/30/21 11/30/21 04:55 05:00 05:30 Temperature Pulse Rate 87 88 Pulse Rate [ From Monitor] Respiratory 20 17 Rate Blood Pressure 106/55 124/73 O2 Sat by Pulse 100 100 Oximetry O2 Sat by Pulse 100 Oximetry [ Assessment] 11/30/21 11/30/21 11/30/21 06:01 06:30 07:01 Temperature Pulse Rate 87 89 84 Pulse Rate [ From Monitor] Respiratory 20 18 20 Rate Blood Pressure 105/51 122/69 88/42 O2 Sat by Pulse 99 99 99 Oximetry O2 Sat by Pulse Oximetry [ Assessment] 11/30/21 11/30/21 11/30/21 07:30 07:58 08:00 Temperature 99.7 F H Pulse Rate 84 85 83 Pulse Rate [ 84 From Monitor] Respiratory 20 20 Rate Blood Pressure 87/43 85/43 85/43 O2 Sat by Pulse 99 100 100 Oximetry O2 Sat by Pulse Oximetry [ Assessment] 11/30/21 11/30/21 11/30/21 08:30 09:00 09:30 Temperature Pulse Rate 87 85 82 Pulse Rate [ From Monitor] Respiratory 20 20 20 Rate Blood Pressure 97/58 97/53 84/40 O2 Sat by Pulse 100 100 98 Oximetry O2 Sat by Pulse Oximetry [ Assessment] 11/30/21 11/30/21 11/30/21 10:00 10:30 11:00 Temperature Pulse Rate 84 82 83 Pulse Rate [ From Monitor] Respiratory 20 20 20 Rate Blood Pressure 89/46 88/41 102/54 O2 Sat by Pulse 99 99 100 Oximetry O2 Sat by Pulse Oximetry [ Assessment] 11/30/21 11/30/21 11/30/21 11:31 11:46 12:00 Temperature 98.9 F Pulse Rate 90 90 86 Pulse Rate [ 86 From Monitor] Respiratory 20 20 Rate Blood Pressure 82/57 96/51 101/58 O2 Sat by Pulse 100 100 100 Oximetry O2 Sat by Pulse 100 Oximetry [ Assessment] - General Appearance General appearance: well-developed, appears stated age, obese, intubated EENT: ATNC Neck: no JVD Respiratory: Present: Decreased Breath Sounds, Other (has trach) Cardiology: S1S2 Gastrointestinal: normoactive bowel sounds Integumentary: warm and dry Neurologic: other (Awake) Musculoskeletal: joint swelling - Lab 11/29/21 05:25 11/30/21 04:00 Most recent lab results ABG pH 7.467 pH Units (7.350-7.450) H 11/18/21 04:35 ABG pCO2 37.1 mm Hg 11/18/21 04:35 ABG pO2 110.0 mm Hg (80.0-90.0) H 11/18/21 04:35 ABG HCO3 26.2 mmol/L (20.0-26.0) H 11/18/21 04:35 ABG O2 Saturation 98.1 % (95.0-99.0) 11/18/21 04:35 Calcium 8.6 mg/dL (8.4-10.2) 11/30/21 04:00 Phosphorus 4.50 mg/dL (2.5-4.5) D 11/30/21 04:00 Magnesium 2.10 mg/dL (1.7-2.3) 11/30/21 04:00 Urine Creatinine 189.3 mg/dL (0.1-20.0) H 11/12/21 02:20 Urine Sodium 30 mmol/L 11/12/21 02:20 Medications & Allergies - Medications Allergies/Adverse Reactions: Allergies No Known Allergies Allergy (Verified 11/11/21 20:58) Home Medications: Home Medications Medication Instructions Recorded Confirmed Last Taken Type No Known Home Medications [No 11/22/21 11/22/21 Unknown History Reported Home Medications] Active Medications: Generic Name Dose Route Start Last Admin Trade Name Freq PRN Reason Stop Dose Admin Acetaminophen 650 mg 11/11/21 22:40 Acetaminophen 325 Mg Tab PO Q4H PRN Pain MILD(1-3)/Fever >100.5/SOTO Albumin Human 12.5 gm 11/23/21 10:00 11/25/21 15:23 Albumin Human 25% (12.5 Gm/50 Ml) Inj IV 12.5 gm LONG PRN Administration Hypotension Albuterol 2.5 mg 11/11/21 22:40 Albuterol 2.5 Mg/3 Ml Nebu IH Q3HRT PRN Shortness Of Breath Aspirin 325 mg 11/17/21 10:00 11/30/21 09:39 Aspirin 325 Mg Tab FEEDTUBE 325 mg QDAY BAO Administration Atorvastatin Calcium 40 mg 11/17/21 22:00 11/29/21 22:08 Atorvastatin 40 Mg Tab FEEDTUBE 40 mg QHS BAO Administration Dextrose 50 ml 11/18/21 13:00 Dextrose 50% In Water (25gm) 50 Ml Syringe IV Q30MIN PRN Hypoglycemia Protocol Famotidine 20 mg 11/17/21 10:00 11/30/21 09:40 Famotidine 20 Mg Tab FEEDTUBE 20 mg QDAY BAO Administration Hydrophilic Ointment 1 applic 11/11/21 20:56 Lip Therapy Vaseline TP Q2HR PRN Dry Lips Sodium Chloride 100 mls @ 999 mls/hr 11/26/21 12:30 Nacl 0.9% IV LONG PRN Hypotension NORepinephrine/NS 8 MG-250 ML 8 mg in 250 mls @ 3.75 mls/hr 11/29/21 11:00 Norepinephrine/Ns 8 Mg-250 Ml (Double Conc) IV TITRATE [facility] Protocol 2 MCG/MIN Insulin Human Lispro 0 unit 11/12/21 00:00 11/30/21 12:07 Insulin Lispro 100 Unit/Ml SUB-Q Not Given Q6HR [facility] Protocol Lorazepam 2 mg 11/21/21 11:00 11/26/21 20:55 Lorazepam 2 Mg/Ml Vial IV 2 mg Q4H PRN Administration Agitation Midodrine 15 mg 11/29/21 12:00 11/30/21 12:40 Midodrine 5 Mg Tab PO 15 mg TID@0800,1200,1600 BAO Administration Multi-Ingred Cream/Lotion/Oil/Oint 1 applic 11/11/21 20:56 Mineral Oil/Petrolatum, White Ophth Oint 3.5 Gm OU Q4HR PRN Dry Eye(s) Ondansetron HCl 4 mg 11/11/21 22:40 Ondansetron 4 Mg/2 Ml Inj IV Q8H PRN Nausea And Vomiting Polyethylene Glycol 17 gm 11/27/21 10:00 Polyethylene Glycol 3350 17 Gm Powder PO QDAY PRN Constip unreliev by MOM/or NPO Quetiapine Fumarate 50 mg 11/28/21 22:00 11/29/21 22:08 Quetiapine 25 Mg Tab FEEDTUBE 50 mg QHS BAO Administration Senna 8.6 mg 11/17/21 10:00 11/30/21 09:41 Sennosides 8.6 Mg Tab FEEDTUBE 8.6 mg Q12H BAO Administration Sodium Chloride 10 ml 11/12/21 10:00 11/30/21 09:39 Sodium Chloride 0.9% 10 Ml Flush Syringe IV 10 ml BID BAO Administration Sodium Chloride 10 ml 11/11/21 22:40 Sodium Chloride 0.9% 10 Ml Flush Syringe IV PRN PRN LINE FLUSH
--- NOTE | 2021-11-30 15:20 | Progress Note ---
Assessment and Plan 56 y/o morbidly obese male with acute respiratory failure, requiring intubation and now in acute renal failure and in need of HD 11/30/21: increase in midodrine appears to be working, off levo. HD today and hope he does not require pressors. Daily PSV trials and LTACH placement 11/29/21: Increase Midodrine to 15 TID. Continue nightly seroquel. HD per renal. Await Ltach placement 11/28/21: Daily PSV trials. HD today. Restarted antipsychotics at night. Seroquel at 50 11/27/21: Daily PSV trials. HD per renal. LTACH next week. Stopped Haldol today. 11/26/21: Can likely stop haldol today as delirium seems to be stablized. LTACH next week. 11/25/21: Continue scheduled haldol. Ok if renal wants to dialyze but would cons ider only cleaning and not fluid removal as pulm status is stable. LTACH placement 11/24/21: Start scheduled haldol and see if we can wean sedation of. Hold on HD today. LTACH. 11/23/21: Successful trach and peg on yesterday. HD today, post HD start weaning trials. Will need LTACH. Will ask renal about Permcath placement 11/22/21: Follow up post op. Will need LTACH. HD per renal, need to ask them if he will need permacath as well. 11/21/21: Reviewed Gen Surg note. Will reach out to them for further discussion. Continue aggressive volume removal. Wean Pressors as tolerated. 11/18/21: Await Gen Surg comments as they were checking on OR supplies. If not able to, will start working on transfer as patient will need trach given current clinical state. HD per renal. Wean pressors as tolerated. Guarded to poor prognosis. 11/17/21: Follow up Gen Surge eval, they are checking to see the materials they have in OR. Reviewed neck ultrasound, per their read trachea is only about an 1 inch away from the skin. Shocking given his neck size but given the difficulty in intubation and his entrance being anterior, this makes sense. Will defer to surgery call but have no problem with calling for transfer as well. Wean Pressors as tolerated. HD per renal. Continue sedation for RASS of 0. Guarded to poor prognosis. 11/16/21: Given patient body habitus, difficult airway and likely no improvement in current clinical state, will need trach. However given his neck size, I would suggest this be done by ENT as I am not even sure that the bovona XLT is long enough. Ok to consult surgery here but I suggest seeking transfer to a tertiary care facility with ENT to attempt this. Also suggest obtaining neck CT to further evaluate total neck anatomy that way if we need to send this over prior to acceptance we can. Guarded prognosis but mental status is intact. HD per renal. 11/15/21: stop sedation. Attempt PSV. Bipap PRN and QHS. Hopeful extubation today. HD per renal. 11/14/21: Wean PEEP again today and attempt PSV trial. If passes will attempt extubation. HD per renal 11/13/21: HD per renal. No PSV trials today. Wean PEEP after HD. Guarded prognosis. 1. Obtain ABG 2. Place Iglesias catheter 3. Wean Pressors for maps greater than 65 4. Insulin, D50 for Hyperkalemia, and HD per renal 5. Stopped scheduled duonebs 6. Stopped abx 7. Obtain BNP with morning labs 8. Guarded prognosis. CCT 31 minutes. Subjective Date of service: 11/30/21 Principal diagnosis: Acute respiratory failure, Interval history: No acute events. Objective Vital Signs - 12hr 11/30/21 11/30/21 11/30/21 03:30 04:00 04:21 Temperature 98.5 F Pulse Rate 92 H 91 H 91 H Pulse Rate [ 91 H From Monitor] Respiratory 18 20 Rate Blood Pressure 103/67 129/83 129/83 O2 Sat by Pulse 100 100 100 Oximetry O2 Sat by Pulse Oximetry [ Assessment] 11/30/21 11/30/21 11/30/21 04:30 04:55 05:00 Temperature Pulse Rate 89 87 Pulse Rate [ From Monitor] Respiratory 17 20 Rate Blood Pressure 137/78 106/55 O2 Sat by Pulse 100 100 Oximetry O2 Sat by Pulse 100 Oximetry [ Assessment] 11/30/21 11/30/21 11/30/21 05:30 06:01 06:30 Temperature Pulse Rate 88 87 89 Pulse Rate [ From Monitor] Respiratory 17 20 18 Rate Blood Pressure 124/73 105/51 122/69 O2 Sat by Pulse 100 99 99 Oximetry O2 Sat by Pulse Oximetry [ Assessment] 11/30/21 11/30/21 11/30/21 07:01 07:30 07:58 Temperature Pulse Rate 84 84 85 Pulse Rate [ From Monitor] Respiratory 20 20 Rate Blood Pressure 88/42 87/43 85/43 O2 Sat by Pulse 99 99 100 Oximetry O2 Sat by Pulse Oximetry [ Assessment] 11/30/21 11/30/21 11/30/21 08:00 08:30 09:00 Temperature 99.7 F H Pulse Rate 83 87 85 Pulse Rate [ 84 From Monitor] Respiratory 20 20 20 Rate Blood Pressure 85/43 97/58 97/53 O2 Sat by Pulse 100 100 100 Oximetry O2 Sat by Pulse Oximetry [ Assessment] 11/30/21 11/30/21 11/30/21 09:30 10:00 10:30 Temperature Pulse Rate 82 84 82 Pulse Rate [ From Monitor] Respiratory 20 20 20 Rate Blood Pressure 84/40 89/46 88/41 O2 Sat by Pulse 98 99 99 Oximetry O2 Sat by Pulse Oximetry [ Assessment] 11/30/21 11/30/21 11/30/21 11:00 11:31 11:46 Temperature Pulse Rate 83 90 90 Pulse Rate [ From Monitor] Respiratory 20 20 Rate Blood Pressure 102/54 82/57 96/51 O2 Sat by Pulse 100 100 100 Oximetry O2 Sat by Pulse Oximetry [ Assessment] 11/30/21 11/30/21 11/30/21 12:00 12:30 13:01 Temperature 98.9 F Pulse Rate 86 90 88 Pulse Rate [ 86 From Monitor] Respiratory 20 15 20 Rate Blood Pressure 101/58 89/52 96/51 O2 Sat by Pulse 100 99 99 Oximetry O2 Sat by Pulse 100 Oximetry [ Assessment] 11/30/21 13:30 Temperature Pulse Rate 89 Pulse Rate [ From Monitor] Respiratory 20 Rate Blood Pressure 115/76 O2 Sat by Pulse 98 Oximetry O2 Sat by Pulse Oximetry [ Assessment] Constitutional: comatose Eyes: non-icteric ENT: other (orally intubated and sedated) Neck: supple, other (large in circumference) Effort: normal Ascultation: Bilateral: diminished breath sounds Cardiovascular: regular rate and rhythm Gastrointestinal: normoactive bowel sounds Extremities: edema, anasarca Neurologic: unable to assess CBC and BMP: 11/29/21 05:11/30/21 04:00 ABG, PT/INR, D-dimer: ABG ABG pH 7.467 pH Units (7.350-7.450) H 11/18/21 04:35 ABG pCO2 37.1 mm Hg 11/18/21 04:35 ABG pO2 110.0 mm Hg (80.0-90.0) H 11/18/21 04:35 ABG O2 Saturation 98.1 % (95.0-99.0) 11/18/21 04:35 PT/INR, D-dimer PT 14.4 Sec. (12.2-14.9) 11/22/21 04:00 INR 1.01 (0.87-1.13) 11/22/21 04:00 Abnormal lab findings: Abnormal Labs 11/11/21 11/11/21 11/11/21 19:49 19:49 23:29 WBC 11.5 H RBC Hgb 10.1 L Hct 34.8 L MCH 27 L MCHC 29 L RDW 20.1 H Lymph % (Auto) 10.0 L [place] % (Auto) 8.8 H Lymph # (Auto) 1.1 L [place] # (Auto) 1.0 H Seg Neutrophils % 79.8 H Seg Neuts % (Manual) Lymphocytes % (Manual) Seg Neutrophils # 9.2 H Seg Neutrophils # Man Lymphocytes # (Manual) ABG pH ABG pO2 ABG HCO3 ABG O2 Saturation ABG Base Excess ABG Hemoglobin Sodium Potassium 7.6 H* Chloride 107.8 H Carbon Dioxide 13 L BUN 107 H Creatinine 13.8 H Glucose POC Glucose Calcium 7.5 L Phosphorus Magnesium Iron TIBC Total Creatine Kinase 268 H Troponin T 0.324 H* NT-Pro-B Natriuret Pep Total Protein 9.1 H Albumin 3.0 L PTH Intact Urine WBC (Auto) Urine Creatinine 11/11/21 11/11/21 11/12/21 23:29 23:29 02:20 WBC RBC Hgb Hct MCH MCHC RDW Lymph % (Auto) [place] % (Auto) Lymph # (Auto) [place] # (Auto) Seg Neutrophils % Seg Neuts % (Manual) Lymphocytes % (Manual) Seg Neutrophils # Seg Neutrophils # Man Lymphocytes # (Manual) ABG pH ABG pO2 ABG HCO3 ABG O2 Saturation ABG Base Excess ABG Hemoglobin Sodium Potassium Chloride Carbon Dioxide BUN Creatinine Glucose POC Glucose Calcium Phosphorus Magnesium Iron 24 L TIBC 157 L Total Creatine Kinase Troponin T NT-Pro-B Natriuret Pep Total Protein Albumin PTH Intact 1174 H Urine WBC (Auto) Urine Creatinine 189.3 H 11/12/21 11/12/21 11/12/21 02:20 02:28 06:55 WBC 20.5 H RBC 3.54 L Hgb 9.4 L Hct 32.3 L MCH 27 L MCHC 29 L RDW 20.0 H Lymph % (Auto) [place] % (Auto) Lymph # (Auto) [place] # (Auto) Seg Neutrophils % Seg Neuts % (Manual) 89.0 H Lymphocytes % (Manual) 0 L Seg Neutrophils # Seg Neutrophils # Man 18.2 H Lymphocytes # (Manual) 0.0 L ABG pH 7.172 L* ABG pO2 100.6 H ABG HCO3 17.4 L ABG O2 Saturation ABG Base Excess -10.6 L ABG Hemoglobin 9.4 L Sodium Potassium Chloride Carbon Dioxide BUN Creatinine Glucose POC Glucose Calcium Phosphorus Magnesium Iron TIBC Total Creatine Kinase Troponin T NT-Pro-B Natriuret Pep Total Protein Albumin PTH Intact Urine WBC (Auto) 12.0 H Urine Creatinine 11/12/21 11/12/21 11/12/21 06:55 09:10 12:01 WBC RBC Hgb Hct MCH MCHC RDW Lymph % (Auto) [place] % (Auto) Lymph # (Auto) [place] # (Auto) Seg Neutrophils % Seg Neuts % (Manual) Lymphocytes % (Manual) Seg Neutrophils # Seg Neutrophils # Man Lymphocytes # (Manual) ABG pH 7.296 L ABG pO2 237.3 H ABG HCO3 ABG O2 Saturation 99.3 H ABG Base Excess -6.0 L ABG Hemoglobin 8.8 L Sodium Potassium 5.5 H D Chloride 107.1 H Carbon Dioxide 19 L BUN 78 H Creatinine 9.4 H Glucose 119 H POC Glucose 106 H Calcium 8.1 L Phosphorus Magnesium Iron TIBC Total Creatine Kinase Troponin T NT-Pro-B Natriuret Pep Total Protein Albumin PTH Intact Urine WBC (Auto) Urine Creatinine 11/12/21 11/12/21 11/12/21 16:46 16:46 22:30 WBC RBC Hgb Hct MCH MCHC RDW Lymph % (Auto) [place] % (Auto) Lymph # (Auto) [place] # (Auto) Seg Neutrophils % Seg Neuts % (Manual) Lymphocytes % (Manual) Seg Neutrophils # Seg Neutrophils # Man Lymphocytes # (Manual) ABG pH ABG pO2 ABG HCO3 ABG O2 Saturation ABG Base Excess ABG Hemoglobin Sodium 146 H Potassium Chloride 108.2 H Carbon Dioxide 21 L BUN 66 H Creatinine 9.8 H Glucose 125 H POC Glucose Calcium 7.8 L Phosphorus Magnesium Iron TIBC Total Creatine Kinase Troponin T 0.319 H* 0.313 H* NT-Pro-B Natriuret Pep Total Protein Albumin PTH Intact Urine WBC (Auto) Urine Creatinine 11/12/21 11/12/21 11/13/21 23:18 Unknown 04:00 WBC 17.2 H RBC 3.09 L Hgb 8.4 L Hct 27.5 L MCH 27 L MCHC 30 L RDW 19.6 H Lymph % (Auto) [place] % (Auto) Lymph # (Auto) [place] # (Auto) Seg Neutrophils % Seg Neuts % (Manual) Lymphocytes % (Manual) Seg Neutrophils # Seg Neutrophils # Man Lymphocytes # (Manual) ABG pH ABG pO2 ABG HCO3 ABG O2 Saturation ABG Base Excess ABG Hemoglobin Sodium Potassium Chloride Carbon Dioxide BUN Creatinine Glucose POC Glucose 120 H Calcium Phosphorus Magnesium Iron TIBC Total Creatine Kinase Troponin T NT-Pro-B Natriuret Pep 3674 H Total Protein Albumin PTH Intact Urine WBC (Auto) Urine Creatinine 11/13/21 11/13/21 11/13/21 04:00 04:00 05:23 WBC RBC Hgb Hct MCH MCHC RDW Lymph % (Auto) [place] % (Auto) Lymph # (Auto) [place] # (Auto) Seg Neutrophils % Seg Neuts % (Manual) Lymphocytes % (Manual) Seg Neutrophils # Seg Neutrophils # Man Lymphocytes # (Manual) ABG pH 7.274 L ABG pO2 93.2 H ABG HCO3 ABG O2 Saturation ABG Base Excess -3.9 L ABG Hemoglobin 8.2 L Sodium Potassium Chloride Carbon Dioxide 21 L BUN 71 H Creatinine 9.9 H Glucose 128 H POC Glucose 117 H Calcium 7.7 L Phosphorus 5.10 H Magnesium 1.60 L Iron TIBC Total Creatine Kinase Troponin T NT-Pro-B Natriuret Pep Total Protein Albumin PTH Intact Urine WBC (Auto) Urine Creatinine 11/13/21 11/13/21 11/14/21 16:20 23:31 04:10 WBC RBC Hgb Hct MCH MCHC RDW Lymph % (Auto) [place] % (Auto) Lymph # (Auto) [place] # (Auto) Seg Neutrophils % Seg Neuts % (Manual) Lymphocytes % (Manual) Seg Neutrophils # Seg Neutrophils # Man Lymphocytes # (Manual) ABG pH ABG pO2 107.1 H ABG HCO3 ABG O2 Saturation ABG Base Excess ABG Hemoglobin 6.5 L Sodium Potassium Chloride Carbon Dioxide BUN Creatinine Glucose POC Glucose 125 H 123 H Calcium Phosphorus Magnesium Iron TIBC Total Creatine Kinase Troponin T NT-Pro-B Natriuret Pep Total Protein Albumin PTH Intact Urine WBC (Auto) Urine Creatinine 11/14/21 11/14/21 11/14/21 06:30 06:30 15:00 WBC 11.2 H RBC 3.03 L Hgb 8.1 L Hct 26.6 L MCH 27 L MCHC 30 L RDW 19.3 H Lymph % (Auto) [place] % (Auto) Lymph # (Auto) [place] # (Auto) Seg Neutrophils % Seg Neuts % (Manual) Lymphocytes % (Manual) Seg Neutrophils # Seg Neutrophils # Man Lymphocytes # (Manual) ABG pH ABG pO2 ABG HCO3 ABG O2 Saturation ABG Base Excess ABG Hemoglobin Sodium Potassium 3.0 L D 3.4 L Chloride Carbon Dioxide BUN 41 H Creatinine 7.0 H Glucose 107 H POC Glucose Calcium 7.5 L Phosphorus Magnesium 1.60 L Iron TIBC Total Creatine Kinase Troponin T NT-Pro-B Natriuret Pep Total Protein Albumin PTH Intact Urine WBC (Auto) Urine Creatinine 11/14/21 11/15/21 11/15/21 17:24 04:00 04:00 WBC 11.3 H RBC 3.00 L Hgb 8.1 L Hct 26.3 L MCH 27 L MCHC 31 L RDW 19.2 H Lymph % (Auto) [place] % (Auto) Lymph # (Auto) [place] # (Auto) Seg Neutrophils % Seg Neuts % (Manual) Lymphocytes % (Manual) Seg Neutrophils # Seg Neutrophils # Man Lymphocytes # (Manual) ABG pH ABG pO2 ABG HCO3 ABG O2 Saturation ABG Base Excess ABG Hemoglobin Sodium Potassium 3.4 L Chloride Carbon Dioxide BUN 32 H Creatinine 5.9 H Glucose 117 H POC Glucose 124 H Calcium 8.3 L Phosphorus Magnesium Iron TIBC Total Creatine Kinase Troponin T NT-Pro-B Natriuret Pep Total Protein Albumin PTH Intact Urine WBC (Auto) Urine Creatinine 11/15/21 11/15/21 11/16/21 13:58 16:20 04:00 WBC 13.2 H RBC 2.88 L Hgb 7.8 L Hct 25.2 L MCH 27 L MCHC 31 L RDW 19.1 H Lymph % (Auto) [place] % (Auto) Lymph # (Auto) [place] # (Auto) Seg Neutrophils % Seg Neuts % (Manual) Lymphocytes % (Manual) Seg Neutrophils # Seg Neutrophils # Man Lymphocytes # (Manual) ABG pH 7.335 L ABG pO2 254.0 H ABG HCO3 26.2 H ABG O2 Saturation 99.4 H ABG Base Excess ABG Hemoglobin 8.5 L Sodium Potassium Chloride Carbon Dioxide BUN Creatinine Glucose POC Glucose 132 H Calcium Phosphorus Magnesium Iron TIBC Total Creatine Kinase Troponin T NT-Pro-B Natriuret Pep Total Protein Albumin PTH Intact Urine WBC (Auto) Urine Creatinine 11/16/21 11/16/21 11/16/21 04:00 04:05 11:06 WBC RBC Hgb Hct MCH MCHC RDW Lymph % (Auto) [place] % (Auto) Lymph # (Auto) [place] # (Auto) Seg Neutrophils % Seg Neuts % (Manual) Lymphocytes % (Manual) Seg Neutrophils # Seg Neutrophils # Man Lymphocytes # (Manual) ABG pH ABG pO2 115.6 H ABG HCO3 ABG O2 Saturation ABG Base Excess ABG Hemoglobin 8.1 L Sodium Potassium Chloride Carbon Dioxide BUN 44 H Creatinine 7.7 H Glucose 104 H POC Glucose 106 H Calcium 7.9 L Phosphorus Magnesium Iron TIBC Total Creatine Kinase Troponin T NT-Pro-B Natriuret Pep Total Protein Albumin PTH Intact Urine WBC (Auto) Urine Creatinine 11/16/21 11/16/21 11/17/21 18:05 23:51 04:15 WBC 11.8 H RBC 3.02 L Hgb 8.1 L Hct 26.9 L MCH 27 L MCHC 30 L RDW 18.9 H Lymph % (Auto) [place] % (Auto) Lymph # (Auto) [place] # (Auto) Seg Neutrophils % Seg Neuts % (Manual) Lymphocytes % (Manual) Seg Neutrophils # Seg Neutrophils # Man Lymphocytes # (Manual) ABG pH ABG pO2 ABG HCO3 ABG O2 Saturation ABG Base Excess ABG Hemoglobin Sodium Potassium Chloride Carbon Dioxide BUN Creatinine Glucose POC Glucose 109 H 118 H Calcium Phosphorus Magnesium Iron TIBC Total Creatine Kinase Troponin T NT-Pro-B Natriuret Pep Total Protein Albumin PTH Intact Urine WBC (Auto) Urine Creatinine 11/17/21 11/17/21 11/17/21 04:15 04:25 11:25 WBC RBC Hgb Hct MCH MCHC RDW Lymph % (Auto) [place] % (Auto) Lymph # (Auto) [place] # (Auto) Seg Neutrophils % Seg Neuts % (Manual) Lymphocytes % (Manual) Seg Neutrophils # Seg Neutrophils # Man Lymphocytes # (Manual) ABG pH ABG pO2 153.8 H ABG HCO3 ABG O2 Saturation ABG Base Excess ABG Hemoglobin 8.3 L Sodium Potassium Chloride Carbon Dioxide BUN 33 H Creatinine 6.2 H Glucose 118 H POC Glucose 108 H Calcium Phosphorus Magnesium Iron TIBC Total Creatine Kinase Troponin T NT-Pro-B Natriuret Pep Total Protein Albumin PTH Intact Urine WBC (Auto) Urine Creatinine 11/18/21 11/18/21 11/18/21 04:00 04:00 04:35 WBC RBC 2.88 L Hgb 7.8 L Hct 25.3 L MCH 27 L MCHC 31 L RDW 18.7 H Lymph % (Auto) [place] % (Auto) Lymph # (Auto) [place] # (Auto) Seg Neutrophils % Seg Neuts % (Manual) Lymphocytes % (Manual) Seg Neutrophils # Seg Neutrophils # Man Lymphocytes # (Manual) ABG pH 7.467 H ABG pO2 110.0 H ABG HCO3 26.2 H ABG O2 Saturation ABG Base Excess ABG Hemoglobin 8.1 L Sodium Potassium Chloride Carbon Dioxide BUN 28 H Creatinine 5.5 H Glucose POC Glucose Calcium Phosphorus Magnesium Iron TIBC Total Creatine Kinase Troponin T NT-Pro-B Natriuret Pep Total Protein Albumin PTH Intact Urine WBC (Auto) Urine Creatinine 11/18/21 11/19/21 11/19/21 11:50 04:00 11:30 WBC RBC Hgb Hct MCH MCHC RDW Lymph % (Auto) [place] % (Auto) Lymph # (Auto) [place] # (Auto) Seg Neutrophils % Seg Neuts % (Manual) Lymphocytes % (Manual) Seg Neutrophils # Seg Neutrophils # Man Lymphocytes # (Manual) ABG pH ABG pO2 ABG HCO3 ABG O2 Saturation ABG Base Excess ABG Hemoglobin Sodium Potassium Chloride Carbon Dioxide BUN 26 H Creatinine 4.7 H Glucose 110 H POC Glucose 131 H 106 H Calcium Phosphorus Magnesium Iron TIBC Total Creatine Kinase Troponin T NT-Pro-B Natriuret Pep Total Protein Albumin PTH Intact Urine WBC (Auto) Urine Creatinine 11/19/21 11/20/21 11/20/21 17:09 00:14 04:00 WBC RBC Hgb Hct MCH MCHC RDW Lymph % (Auto) [place] % (Auto) Lymph # (Auto) [place] # (Auto) Seg Neutrophils % Seg Neuts % (Manual) Lymphocytes % (Manual) Seg Neutrophils # Seg Neutrophils # Man Lymphocytes # (Manual) ABG pH ABG pO2 ABG HCO3 ABG O2 Saturation ABG Base Excess ABG Hemoglobin Sodium 134 L Potassium Chloride 94.4 L Carbon Dioxide BUN 25 H Creatinine 4.6 H Glucose 117 H POC Glucose 129 H 115 H Calcium Phosphorus Magnesium Iron TIBC Total Creatine Kinase Troponin T NT-Pro-B Natriuret Pep Total Protein Albumin PTH Intact Urine WBC (Auto) Urine Creatinine 11/20/21 11/21/21 11/21/21 11:36 04:00 04:00 WBC 12.0 H RBC 2.85 L Hgb 7.8 L Hct 24.8 L MCH MCHC RDW 18.5 H Lymph % (Auto) [place] % (Auto) Lymph # (Auto) [place] # (Auto) Seg Neutrophils % Seg Neuts % (Manual) Lymphocytes % (Manual) Seg Neutrophils # Seg Neutrophils # Man Lymphocytes # (Manual) ABG pH ABG pO2 ABG HCO3 ABG O2 Saturation ABG Base Excess ABG Hemoglobin Sodium 133 L Potassium Chloride 95.3 L Carbon Dioxide BUN 40 H Creatinine 6.2 H Glucose 103 H POC Glucose 117 H Calcium Phosphorus Magnesium Iron TIBC Total Creatine Kinase Troponin T NT-Pro-B Natriuret Pep Total Protein Albumin PTH Intact Urine WBC (Auto) Urine Creatinine 11/21/21 11/21/21 11/22/21 11:38 18:13 00:41 WBC RBC Hgb Hct MCH MCHC RDW Lymph % (Auto) [place] % (Auto) Lymph # (Auto) [place] # (Auto) Seg Neutrophils % Seg Neuts % (Manual) Lymphocytes % (Manual) Seg Neutrophils # Seg Neutrophils # Man Lymphocytes # (Manual) ABG pH ABG pO2 ABG HCO3 ABG O2 Saturation ABG Base Excess ABG Hemoglobin Sodium Potassium Chloride Carbon Dioxide BUN Creatinine Glucose POC Glucose 127 H 112 H 106 H Calcium Phosphorus Magnesium Iron TIBC Total Creatine Kinase Troponin T NT-Pro-B Natriuret Pep Total Protein Albumin PTH Intact Urine WBC (Auto) Urine Creatinine 11/22/21 11/22/21 11/22/21 04:00 04:00 08:30 WBC 16.1 H 14.8 H RBC 3.01 L 2.95 L Hgb 8.1 L 7.8 L Hct 26.6 L 26.3 L MCH 27 L 27 L MCHC 31 L 30 L RDW 18.3 H 18.9 H Lymph % (Auto) 5.7 L [place] % (Auto) 13.0 H Lymph # (Auto) 0.8 L [place] # (Auto) 1.9 H Seg Neutrophils % 79.5 H Seg Neuts % (Manual) Lymphocytes % (Manual) Seg Neutrophils # 11.8 H Seg Neutrophils # Man Lymphocytes # (Manual) ABG pH ABG pO2 ABG HCO3 ABG O2 Saturation ABG Base Excess ABG Hemoglobin Sodium 136 L Potassium Chloride 97.6 L Carbon Dioxide BUN 35 H Creatinine 5.8 H Glucose 120 H POC Glucose Calcium Phosphorus 4.80 H D Magnesium 3.80 H Iron TIBC Total Creatine Kinase Troponin T NT-Pro-B Natriuret Pep Total Protein Albumin PTH Intact Urine WBC (Auto) Urine Creatinine 11/22/21 11/22/21 11/23/21 08:30 16:39 04:00 WBC 13.7 H RBC 2.93 L Hgb 7.8 L Hct 25.7 L MCH 27 L MCHC 30 L RDW 18.5 H Lymph % (Auto) [place] % (Auto) Lymph # (Auto) [place] # (Auto) Seg Neutrophils % Seg Neuts % (Manual) Lymphocytes % (Manual) Seg Neutrophils # Seg Neutrophils # Man Lymphocytes # (Manual) ABG pH ABG pO2 ABG HCO3 ABG O2 Saturation ABG Base Excess ABG Hemoglobin Sodium Potassium 5.3 H Chloride Carbon Dioxide BUN 36 H Creatinine 6.1 H Glucose 117 H POC Glucose 119 H Calcium Phosphorus Magnesium Iron TIBC Total Creatine Kinase 534 H Troponin T 0.294 H* NT-Pro-B Natriuret Pep Total Protein Albumin PTH Intact Urine WBC (Auto) Urine Creatinine 11/23/21 11/23/21 11/23/21 04:00 11:56 17:20 WBC RBC Hgb Hct MCH MCHC RDW Lymph % (Auto) [place] % (Auto) Lymph # (Auto) [place] # (Auto) Seg Neutrophils % Seg Neuts % (Manual) Lymphocytes % (Manual) Seg Neutrophils # Seg Neutrophils # Man Lymphocytes # (Manual) ABG pH ABG pO2 ABG HCO3 ABG O2 Saturation ABG Base Excess ABG Hemoglobin Sodium Potassium Chloride Carbon Dioxide BUN 27 H Creatinine 5.1 H Glucose 106 H POC Glucose 118 H 110 H Calcium Phosphorus Magnesium Iron TIBC Total Creatine Kinase Troponin T NT-Pro-B Natriuret Pep Total Protein Albumin PTH Intact Urine WBC (Auto) Urine Creatinine 11/24/21 11/24/21 11/24/21 04:30 04:30 05:30 WBC 14.0 H RBC 2.77 L Hgb 7.4 L Hct 24.4 L MCH 27 L MCHC 30 L RDW 18.5 H Lymph % (Auto) [place] % (Auto) Lymph # (Auto) [place] # (Auto) Seg Neutrophils % Seg Neuts % (Manual) Lymphocytes % (Manual) Seg Neutrophils # Seg Neutrophils # Man Lymphocytes # (Manual) ABG pH ABG pO2 ABG HCO3 ABG O2 Saturation ABG Base Excess ABG Hemoglobin Sodium Potassium Chloride 97.5 L Carbon Dioxide BUN 35 H Creatinine 6.1 H Glucose POC Glucose 107 H Calcium Phosphorus Magnesium Iron TIBC Total Creatine Kinase Troponin T NT-Pro-B Natriuret Pep Total Protein Albumin PTH Intact Urine WBC (Auto) Urine Creatinine 11/24/21 11/24/21 11/25/21 11:21 18:04 17:47 WBC RBC Hgb Hct MCH MCHC RDW Lymph % (Auto) [place] % (Auto) Lymph # (Auto) [place] # (Auto) Seg Neutrophils % Seg Neuts % (Manual) Lymphocytes % (Manual) Seg Neutrophils # Seg Neutrophils # Man Lymphocytes # (Manual) ABG pH ABG pO2 ABG HCO3 ABG O2 Saturation ABG Base Excess ABG Hemoglobin Sodium Potassium Chloride Carbon Dioxide BUN Creatinine Glucose POC Glucose 107 H 107 H 124 H Calcium Phosphorus Magnesium Iron TIBC Total Creatine Kinase Troponin T NT-Pro-B Natriuret Pep Total Protein Albumin PTH Intact Urine WBC (Auto) Urine Creatinine 11/25/21 11/25/21 11/25/21 23:40 23:50 23:50 WBC 14.1 H RBC 2.57 L Hgb 7.3 L Hct 22.7 L MCH MCHC RDW 17.9 H Lymph % (Auto) [place] % (Auto) Lymph # (Auto) [place] # (Auto) Seg Neutrophils % Seg Neuts % (Manual) Lymphocytes % (Manual) Seg Neutrophils # Seg Neutrophils # Man Lymphocytes # (Manual) ABG pH ABG pO2 ABG HCO3 ABG O2 Saturation ABG Base Excess ABG Hemoglobin Sodium Potassium Chloride Carbon Dioxide BUN 34 H Creatinine 5.5 H Glucose 117 H POC Glucose 106 H Calcium Phosphorus Magnesium 2.50 H Iron TIBC Total Creatine Kinase Troponin T NT-Pro-B Natriuret Pep Total Protein Albumin PTH Intact Urine WBC (Auto) Urine Creatinine 11/26/21 11/26/21 11/26/21 10:41 10:46 17:28 WBC 12.5 H RBC 2.69 L Hgb 7.2 L Hct 23.8 L MCH 27 L MCHC 30 L RDW 17.7 H Lymph % (Auto) [place] % (Auto) Lymph # (Auto) [place] # (Auto) Seg Neutrophils % Seg Neuts % (Manual) Lymphocytes % (Manual) Seg Neutrophils # Seg Neutrophils # Man Lymphocytes # (Manual) ABG pH ABG pO2 ABG HCO3 ABG O2 Saturation ABG Base Excess ABG Hemoglobin Sodium Potassium Chloride Carbon Dioxide BUN 42 H Creatinine 6.6 H Glucose 106 H POC Glucose 112 H Calcium Phosphorus Magnesium Iron TIBC Total Creatine Kinase Troponin T NT-Pro-B Natriuret Pep Total Protein Albumin PTH Intact Urine WBC (Auto) Urine Creatinine 11/27/21 11/27/21 11/27/21 04:45 04:45 17:05 WBC 12.4 H RBC 2.75 L Hgb 7.4 L Hct 24.3 L MCH 27 L MCHC 30 L RDW 18.0 H Lymph % (Auto) [place] % (Auto) Lymph # (Auto) [place] # (Auto) Seg Neutrophils % Seg Neuts % (Manual) Lymphocytes % (Manual) Seg Neutrophils # Seg Neutrophils # Man Lymphocytes # (Manual) ABG pH ABG pO2 ABG HCO3 ABG O2 Saturation ABG Base Excess ABG Hemoglobin Sodium Potassium Chloride Carbon Dioxide BUN 32 H Creatinine 5.0 H Glucose 112 H POC Glucose 110 H Calcium Phosphorus Magnesium Iron TIBC Total Creatine Kinase Troponin T NT-Pro-B Natriuret Pep Total Protein Albumin PTH Intact Urine WBC (Auto) Urine Creatinine 11/28/21 11/28/21 11/28/21 04:30 04:30 17:43 WBC 11.2 H RBC 2.71 L Hgb 7.4 L Hct 23.9 L MCH 27 L MCHC 31 L RDW 18.0 H Lymph % (Auto) [place] % (Auto) Lymph # (Auto) [place] # (Auto) Seg Neutrophils % Seg Neuts % (Manual) Lymphocytes % (Manual) Seg Neutrophils # Seg Neutrophils # Man Lymphocytes # (Manual) ABG pH ABG pO2 ABG HCO3 ABG O2 Saturation ABG Base Excess ABG Hemoglobin Sodium 136 L Potassium Chloride 95.4 L Carbon Dioxide BUN 49 H Creatinine 6.6 H Glucose POC Glucose 107 H Calcium Phosphorus Magnesium Iron TIBC Total Creatine Kinase Troponin T NT-Pro-B Natriuret Pep Total Protein Albumin PTH Intact Urine WBC (Auto) Urine Creatinine 11/29/21 11/29/21 11/29/21 05:25 05:25 11:37 WBC RBC 2.76 L Hgb 7.6 L Hct 24.3 L MCH 27 L MCHC 31 L RDW 17.7 H Lymph % (Auto) [place] % (Auto) Lymph # (Auto) [place] # (Auto) Seg Neutrophils % Seg Neuts % (Manual) Lymphocytes % (Manual) Seg Neutrophils # Seg Neutrophils # Man Lymphocytes # (Manual) ABG pH ABG pO2 ABG HCO3 ABG O2 Saturation ABG Base Excess ABG Hemoglobin Sodium 136 L Potassium Chloride 96.5 L Carbon Dioxide BUN 40 H Creatinine 6.1 H Glucose 110 H POC Glucose 111 H Calcium Phosphorus Magnesium Iron TIBC Total Creatine Kinase Troponin T NT-Pro-B Natriuret Pep Total Protein Albumin PTH Intact Urine WBC (Auto) Urine Creatinine 11/30/21 04:00 WBC RBC Hgb Hct MCH MCHC RDW Lymph % (Auto) [place] % (Auto) Lymph # (Auto) [place] # (Auto) Seg Neutrophils % Seg Neuts % (Manual) Lymphocytes % (Manual) Seg Neutrophils # Seg Neutrophils # Man Lymphocytes # (Manual) ABG pH ABG pO2 ABG HCO3 ABG O2 Saturation ABG Base Excess ABG Hemoglobin Sodium 133 L Potassium Chloride 92.1 L Carbon Dioxide BUN 62 H Creatinine 7.7 H Glucose POC Glucose Calcium Phosphorus Magnesium Iron TIBC Total Creatine Kinase Troponin T NT-Pro-B Natriuret Pep Total Protein Albumin PTH Intact Urine WBC (Auto) Urine Creatinine Allied health notes reviewed: nursing
[2021-11-30] MEDS: NORepinephrine/NS 8 MG-250 ML 8 MG/250 ML INFUS..BTL IV SCH (15:24)
--- NOTE | 2021-11-30 15:25 | Progress Note ---
<RUFUS ALVAREZ - Last Filed: 11/30/21 18:06> Assessment and Plan Assessment and plan: This is a 56-year-old male with DM, HTN, obesity, currently bedbound and past intubations admitted with acute hypoxic respiratory failure and acute renal failure Hospital course to date: 11/12: Overnight patient received a dialysis catheter and was initiated on dialysis. Iglesias catheter was also placed. Antibiotics discontinued. proBNP pending. Decrease in FiO2 related to ABG. Echocardiogram pending. Patient given X1 for potassium 5.5 and nutrition consulted for tube feedings. updated brother at bedside 11/13: Propofol letter for sedation as patient seems restless on the ventilator only on fentanyl. HD scheduled for today. [facility] plans to conduct PSV possibly Sunday. 11/14: Tolerated HD overnight, 2L removed. Plan for possible HD again today. Patient is tolerating PST today on low dose fentanyl, plan for possible extubation tomorrow. 11/15: SANA overnight. Remains on the vent and on low dose sedation. Continue to tolerate HD. Plan for PST and possible extubation today. 11/16: Failed extubation yesterday and had to be emergently reintubated due to hypoxia and decreased LOC. Patient is stable on the vent this am, remains on low dose sedation, while awake and following commands. CCM recommendations noted due to patient's body habitus, he might need to be trach/Peg. CT neck was canceled due to weight limit. General Surgery consulted for Trach/PEG eval. 11/17: Remains on the vent, sedation increased overnight due to increased agitation and low dose pressors were initiated. Patient tolerated HD yesterday, plan for HD again today. Plan for possible trach/PEG vs possible transfer for ENT eval for trach/PEG. Awaiting on General surgery recommendations. 11/18: SANA overnight. D/w CCM plan for US thyroid biopsy per General Surgery recommendation due thyroid nodule to r/o malignancy. Patient remains on low dose levophed gtt. Continue HD per Nephro. 11/19: Periods of low SPO2 overnight which resolved with deep suctioning. Patient remains on low dose vent setting, no respiratory distress noted this am. Patient remains on sedation and low dose levophed, MAP in the 70s, continue to wean pressors for MAP above 65. Pending US biopsy of the thyroid for possible trach per General Surgery. 4/3: SANA overnight. Remains on low dose pressors, continue to wean for MAP above 65. Pending US guided thyroid biopsy for possible trach/PEG per General Surgery. 11/21: Trach/PEG postponed till tomorrow. Neurology consult completed who recommended MRI brain and EEG. NGT will be replaced. Will give mag citrate once placed has patient has not had a BM since 11/17 11/22: Patient had a trach/PEG placed today. Will remain n.p.o. till tomorrow morning. On palpation right wrist may have dislocation, x-ray ordered. Confirmed dislocation. Will order sling. 11/23: Attempted hemodialysis today at bedside however unable to record blood pressure and he was given albumin and and started on Levophed. Levophed was still maxed at 30 mcg and vasopressin was added. 1 dose of hydrocortisone 100 mg did not yield results. Attempts to place a line was unsuccessful however blood pressure reading was in the 180s and hemodialysis was resumed. Shortly after resumption patient became hypotensive and was again maxed on Levophed. Hemodialysis was abandoned. 11/24: Haldol scheduled for possibly delirium per CCM, RN to attempt to decrease sedation as tolerated. RT asked to place on SPT. 11/25: CAM ICU negative, started on Levophed overnight, added midodrine. HD orders noted 11/26: HD planned today. Patient seems to be comfortable. RT placed on PSV. 11/28: Remains stable on the vent, tolerated PST over the weekend. Continue daily PST. qHs Seroquel added to promote rest and maintain sleep-wake cycle. Plan for HD today per Nephro. Possible LTAC placement, case management to arrange. 11/29: Hypotensive during HD overnight, required short duration of levophed gtt. Pressors are off this am, midodrine increased to 15mg TID. Awaiting LTAC placement, case management to arrange. 11/30: SANA overnight, remains stable on the vent. Continue daily PST as tolerated. Plan for HD today. Possible transfer to LTAC tomorrow. Assessment and Plan Neuro: Acute metabolic encephalopathy -Remains on the vent, drowsy this am -Restlessness and Insomnia -qHs Seroquel added -Monitor Qtc -Avoid delirium -Reorientation as needed -Maintain sleep-wake cycle -aspiration/seizure precautions -As needed analgesia for CPOT greater than 3 -Neurology on consult Cardiac: h/o HTN, elevated troponins -Cardiology consulted, appreciate recommendations -S/p vasopressor support -Now on Midodrine -Echocardiogram shows ejection fraction greater than 70 -Blood pressure monitoring per protocol -Maintain MAP above 65 Respiratory: Acute hypoxic respiratory failure, ? [facility] consulted, appreciate recommendations -Intubated in the emergency department on 11/04 -11/15 Failed extubation had to be emergently reintubated due to hypoxia and decreased LOC -4/5 s/p Trach/PEG placement -Vent settings: PRVC-30%,6,20,550 -VAP bundle addressed -Aspiration precaution HOB above 30 -Daily PSV trials as tolerated -PRN ABG and CXR per [facility] -Continue SPO2 monitoring for SPO2 goal above 92% GI: Protin calorie malnutrition, Morbid obesity -4/5 s/p PEGTube placement -Continue enteral nutrition -NTR consulted for tube feedings -BR: Colace : Acute Renal Failure -FeNa 1.04% indicating either ATN or prerenal state -Nephrology consulted, appreciate recommendations -Vas-Cath placed at HD initiated 11/12 -HD per nephrology -Strict intake and output -Renally dose medications -Avoid nephrotoxic medications -Daily weights -Renal ultrasound pending -Trend BMP -Repeat magnesium Endo:Thyroid Nodule h/o DM -Head/neck ultrasound showed left thyroid lobe nodule is a T1 RADS category 3 lesion, current recommendation is follow-up in 1 year -Reexamination by Dr. Gutierrez showed nodule approximately 2.3 cm in maximum dimension. Rec. Follow-up at 1, 3, 5-year intervals to be appropriate -Hemoglobin A1c 5.7 -SSI -Accu-Cheks q. 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 The aggregate critical care time was [60] minutes. This time is in addition to time spent performing reported procedures but includes the following: [x] Data Review and interpretation [x] Patient assessment and monitoring of vital signs [x] Documentation [x] Medication orders and management Disposition Plan: ICU Total Time Spent with Patient (Minutes): 60 History Interval history: Patient seen and examined at the bedside. Remains stable on the vent, [place] [facility] overnight Hospitalist Physical - Constitutional Vitals: Temp Pulse Resp BP Pulse Ox 98.9 F 89 20 115/76 98 11/30/21 12:00 11/30/21 13:30 11/30/21 13:30 11/30/21 13:30 11/30/21 13:30 General appearance: Present: no acute distress, obese, other (tracheostomy, on the vent) - EENT Eyes: Present: PERRL ENT: hearing intact, clear oral mucosa - Neck Neck: Present: normal ROM - Respiratory Respiratory effort: normal Respiratory: bilateral: rhonchi - Cardiovascular Rhythm: regular Heart Sounds: Present: S1 & S2 - Extremities Extremities: no ischemia, pulses intact, pulses symmetrical Extremity abnormal: edema - Peripheral Assessment Generalized Edema Type: Non-pitting Edema Degree: 2+ Capillary Refill: < 3 seconds Skin Temperature: Warm Peripheral Pulses: within normal limits - Abdominal General gastrointestinal: soft, non-distended, normal bowel sounds - Integumentary Integumentary: Present: warm, dry - Psychiatric Psychiatric: appropriate mood/affect, cooperative, other (tracheostomy, on the v ent) - Neurologic Neurologic: moves all extremities (Except Right Wrist due to chronic fracture), other (tracheostomy, on the vent) - Allied Health Allied health notes reviewed: nursing, case management HEART Score - HEART Score Troponin: Troponin T 0.294 ng/mL (0.00-0.029) H* 11/22/21 08:30 Results - Labs CBC & Chem 7: 11/29/21 05:25 11/30/21 04:00 Labs: Laboratory Last Values WBC 9.4 K/mm3 (4.5-11.0) 11/29/21 05:25 RBC 2.76 M/mm3 (3.65-5.03) L 11/29/21 05:25 Hgb 7.6 gm/dl (11.8-15.2) L 11/29/21 05:25 Hct 24.3 % (35.5-45.6) L 11/29/21 05:25 MCV 88 fl (84-94) 11/29/21 05:25 MCH 27 pg (28-32) L 11/29/21 05:25 MCHC 31 % (32-34) L 11/29/21 05:25 RDW 17.7 % (13.2-15.2) H 11/29/21 05:25 Plt Count 302 K/mm3 (140-440) 11/29/21 05:25 Lymph % (Auto) 5.7 % (13.4-35.0) L 11/22/21 08:30 Bertie % (Auto) 13.0 % (0.0-7.3) H 11/22/21 08:30 Eos % (Auto) 1.4 % (0.0-4.3) 11/22/21 08:30 Baso % (Auto) 0.4 % (0.0-1.8) 11/22/21 08:30 Lymph # (Auto) 0.8 K/mm3 (1.2-5.4) L 11/22/21 08:30 Bertie # (Auto) 1.9 K/mm3 (0.0-0.8) H 11/22/21 08:30 Eos # (Auto) 0.2 K/mm3 (0.0-0.4) 11/22/21 08:30 Baso # (Auto) 0.1 K/mm3 (0.0-0.1) 11/22/21 08:30 Add Manual Diff Complete 11/12/21 06:55 Total Counted 100 11/12/21 06:55 Seg Neutrophils % 79.5 % (40.0-70.0) H 11/22/21 08:30 Seg Neuts % (Manual) 89.0 % (40.0-70.0) H 11/12/21 06:55 Band Neutrophils % 5.0 % 11/12/21 06:55 Lymphocytes % (Manual) 0 % (13.4-35.0) L 11/12/21 06:55 Reactive Lymphs % (Man) 0 % 11/12/21 06:55 Monocytes % (Manual) 3.0 % (0.0-7.3) 11/12/21 06:55 Eosinophils % (Manual) 0 % (0.0-4.3) 11/12/21 06:55 Basophils % (Manual) 0 % (0.0-1.8) 11/12/21 06:55 Metamyelocytes % 3.0 % 11/12/21 06:55 Myelocytes % 0 % 11/12/21 06:55 Promyelocytes % 0 % 11/12/21 06:55 Blast Cells % 0 % 11/12/21 06:55 Nucleated RBC % Not Reportable 11/12/21 06:55 Seg Neutrophils # 11.8 K/mm3 (1.8-7.7) H 11/22/21 08:30 Seg Neutrophils # Man 18.2 K/mm3 (1.8-7.7) H 11/12/21 06:55 Band Neutrophils # 1.0 K/mm3 11/12/21 06:55 Lymphocytes # (Manual) 0.0 K/mm3 (1.2-5.4) L 11/12/21 06:55 Abs React Lymphs (Man) 0.0 K/mm3 11/12/21 06:55 Monocytes # (Manual) 0.6 K/mm3 (0.0-0.8) 11/12/21 06:55 Eosinophils # (Manual) 0.0 K/mm3 (0.0-0.4) 11/12/21 06:55 Basophils # (Manual) 0.0 K/mm3 (0.0-0.1) 11/12/21 06:55 Metamyelocytes # 0.6 K/mm3 11/12/21 06:55 Myelocytes # 0.0 K/mm3 11/12/21 06:55 Promyelocytes # 0.0 K/mm3 11/12/21 06:55 Blast Cells # 0.0 K/mm3 11/12/21 06:55 WBC Morphology Not Reportable 11/12/21 06:55 Hypersegmented Neuts Not Reportable 11/12/21 06:55 Hyposegmented Neuts Not Reportable 11/12/21 06:55 Hypogranular Neuts Not Reportable 11/12/21 06:55 Smudge Cells Not Reportable 11/12/21 06:55 Toxic Granulation 1+ 11/12/21 06:55 Toxic Vacuolation Not Reportable 11/12/21 06:55 Dohle Bodies Not Reportable 11/12/21 06:55 Pelger-Huet Anomaly Not Reportable 11/12/21 06:55 Lissa Rods Not Reportable 11/12/21 06:55 Platelet Estimate Consistent w auto 11/12/21 06:55 Clumped Platelets Not Reportable 11/12/21 06:55 Plt Clumps, EDTA Not Reportable 11/12/21 06:55 Large Platelets Not Reportable 11/12/21 06:55 Giant Platelets Not Reportable 11/12/21 06:55 Platelet Satelliting Not Reportable 11/12/21 06:55 Plt Morphology Comment Not Reportable 11/12/21 06:55 RBC Morphology Normal 11/12/21 06:55 Dimorphic RBCs Not Reportable 11/12/21 06:55 Polychromasia Not Reportable 11/12/21 06:55 Hypochromasia Not Reportable 11/12/21 06:55 Poikilocytosis Not Reportable 11/12/21 06:55 Anisocytosis Not Reportable 11/12/21 06:55 Microcytosis Not Reportable 11/12/21 06:55 Macrocytosis Not Reportable 11/12/21 06:55 Spherocytes Not Reportable 11/12/21 06:55 Pappenheimer Bodies Not Reportable 11/12/21 06:55 Sickle Cells Not Reportable 11/12/21 06:55 Target Cells Not Reportable 11/12/21 06:55 Tear Drop Cells Not Reportable 11/12/21 06:55 Ovalocytes Not Reportable 11/12/21 06:55 Helmet Cells Not Reportable 11/12/21 06:55 [place] Bodies Not Reportable 11/12/21 06:55 [place] Rings Not Reportable 11/12/21 06:55 [place] Cells Not Reportable 11/12/21 06:55 Bite Cells Not Reportable 11/12/21 06:55 Crenated Cell Not Reportable 11/12/21 06:55 Elliptocytes Not Reportable 11/12/21 06:55 Acanthocytes (Spur) Not Reportable 11/12/21 06:55 Rouleaux Not Reportable 11/12/21 06:55 Hemoglobin C Crystals Not Reportable 11/12/21 06:55 Schistocytes Not Reportable 11/12/21 06:55 Malaria parasites Not Reportable 11/12/21 06:55 Nam Bodies Not Reportable 11/12/21 06:55 Hem Pathologist Commnt No 11/12/21 06:55 PT 14.4 Sec. (12.2-14.9) 11/22/21 04:00 INR 1.01 (0.87-1.13) 11/22/21 04:00 ABG pH 7.467 pH Units (7.350-7.450) H 11/18/21 04:35 ABG pCO2 37.1 mm Hg 11/18/21 04:35 ABG pO2 110.0 mm Hg (80.0-90.0) H 11/18/21 04:35 ABG HCO3 26.2 mmol/L (20.0-26.0) H 11/18/21 04:35 ABG O2 Saturation 98.1 % (95.0-99.0) 11/18/21 04:35 ABG O2 Content 11.3 (0.0-44) 11/18/21 04:35 ABG Base Excess 2.4 mmol/L (-2.0-3.0) 11/18/21 04:35 ABG Hemoglobin 8.1 gm/dl (14.0-18.0) L 11/18/21 04:35 ABG Carboxyhemoglobin 1.2 % (0.0-5.0) 11/18/21 04:35 ABG Methemoglobin 0.4 % (0.0-1.5) 11/18/21 04:35 Oxyhemoglobin 96.5 % (95.0-99.0) 11/18/21 04:35 FiO2 30 % 11/18/21 04:35 Sodium 133 mmol/L (137-145) L 11/30/21 04:00 Potassium 4.3 mmol/L (3.6-5.0) 11/30/21 04:00 Chloride 92.1 mmol/L (98-107) L 11/30/21 04:00 Carbon Dioxide 25 mmol/L (22-30) 11/30/21 04:00 Anion Gap 20 mmol/L 11/30/21 04:00 BUN 62 mg/dL (9-20) H 11/30/21 04:00 Creatinine 7.7 mg/dL (0.8-1.3) H 11/30/21 04:00 Estimated GFR 9 ml/min 11/30/21 04:00 BUN/Creatinine Ratio 8 % 11/30/21 04:00 Glucose 99 mg/dL (75-100) 11/30/21 04:00 POC Glucose 105 mg/dL (70-105) 11/30/21 11:34 Hemoglobin A1c 5.7 % (4-6) 11/12/21 06:55 Lactic Acid 0.90 mmol/L (0.7-2.0) 11/11/21 19:49 Calcium 8.6 mg/dL (8.4-10.2) 11/30/21 04:00 Phosphorus 4.50 mg/dL (2.5-4.5) D 11/30/21 04:00 Magnesium 2.10 mg/dL (1.7-2.3) 11/30/21 04:00 Iron 24 ug/dL (49-181) L 11/11/21 23:29 TIBC 157 mcg/dL (250-450) L 11/11/21 23:29 Total Bilirubin 0.40 mg/dL (0.1-1.2) 11/11/21 19:49 AST 10 units/L (5-40) 11/11/21 19:49 ALT 7 units/L (7-56) 11/11/21 19:49 Alkaline Phosphatase 111 units/L (35-129) 11/11/21 19:49 Total Creatine Kinase 534 units/L (55-170) H 11/22/21 08:30 CK-MB (CK-2) 2.4 ng/mL (0.0-4.0) 11/22/21 08:30 CK-MB (CK-2) Rel Index 0.4 (0-4) 11/22/21 08:30 Troponin T 0.294 ng/mL (0.00-0.029) H* 11/22/21 08:30 NT-Pro-B Natriuret Pep 3674 pg/mL (0-900) H 11/12/21 Unknown Total Protein 9.1 g/dL (6.3-8.2) H 11/11/21 19:49 Albumin 3.0 g/dL (3.9-5) L 11/11/21 19:49 Albumin/Globulin Ratio 0.5 % 11/11/21 19:49 Triglycerides 109 mg/dL (2-149) 11/21/21 04:00 Cholesterol 146 mg/dL (50-199) 11/11/21 19:49 LDL Cholesterol Direct 85 mg/dL (50-130) 11/11/21 19:49 HDL Cholesterol 43 mg/dL (40-59) 11/11/21 19:49 Cholesterol/HDL Ratio 3.39 % 11/11/21 19:49 PTH Intact 1174 pg/mL (15-65) H 11/11/21 23:29 Urine Color Yellow (Yellow) 11/12/21 02:20 Urine Turbidity Cloudy (Clear) 11/12/21 02:20 Urine pH 5.0 (5.0-7.0) 11/12/21 02:20 Ur Specific [place] 1.013 (1.003-1.030) 11/12/21 02:20 Urine Protein >500 mg/dL (Negative) 11/12/21 02:20 Urine Glucose (UA) Neg mg/dL (Negative) 11/12/21 02:20 Urine Ketones Neg mg/dL (Negative) 11/12/21 02:20 Urine Blood Sm (Negative) 11/12/21 02:20 Urine Nitrite Neg (Negative) 11/12/21 02:20 Urine Bilirubin Neg (Negative) 11/12/21 02:20 Urine Urobilinogen < 2.0 mg/dL (<2.0) 11/12/21 02:20 Ur Leukocyte Esterase Tr (Negative) 11/12/21 02:20 Urine WBC (Auto) 12.0 /HPF (0.0-6.0) H 11/12/21 02:20 Urine RBC (Auto) 4.0 /HPF (0.0-6.0) 11/12/21 02:20 U Epithel Cells (Auto) 9.0 /HPF (0-13.0) 11/12/21 02:20 Urine Bacteria (Auto) 2+ /HPF (Negative) 11/12/21 02:20 Urine Mucus Few /HPF 11/12/21 02:20 Urine Yeast (Budding) 3+ /HPF 11/12/21 02:20 Urine Eosinophils None seen (None Seen) 11/12/21 02:20 Urine Creatinine 189.3 mg/dL (0.1-20.0) H 11/12/21 02:20 Urine Sodium 30 mmol/L 11/12/21 02:20 Coronavirus (PCR) Negative (Negative) 11/22/21 Unknown Hepatitis A IgM Ab Non-reactive (NonReactive) 11/12/21 04:45 Hep Bs Antigen Non-reactive (Negative) 11/12/21 04:45 Hep B Core IgM Ab Non-reactive (NonReactive) 11/12/21 04:45 Hepatitis C Antibody Non-reactive (NonReactive) 11/12/21 04:45 Blood Type O POSITIVE 11/22/21 04:20 Antibody Screen Negative 11/22/21 04:20 Iglesias/IV: Voiding Method Incontinent Active Medications - Current Medications Current Medications: Generic Name Dose Route Start Last Admin Trade Name Freq PRN Reason Stop Dose Admin Acetaminophen 650 mg 11/11/21 22:40 Acetaminophen 325 Mg Tab PO Q4H PRN Pain MILD(1-3)/Fever >100.5/SOTO Albumin Human 12.5 gm 11/23/21 10:00 11/25/21 15:23 Albumin Human 25% (12.5 Gm/50 Ml) Inj IV 12.5 gm LONG PRN Administration Hypotension Albuterol 2.5 mg 11/11/21 22:40 Albuterol 2.5 Mg/3 Ml Nebu IH Q3HRT PRN Shortness Of Breath Aspirin 325 mg 11/17/21 10:00 11/30/21 09:39 Aspirin 325 Mg Tab FEEDTUBE 325 mg QDAY BAO Administration Atorvastatin Calcium 40 mg 11/17/21 22:00 11/29/21 22:08 Atorvastatin 40 Mg Tab FEEDTUBE 40 mg QHS BAO Administration Dextrose 50 ml 11/18/21 13:00 Dextrose 50% In Water (25gm) 50 Ml Syringe IV Q30MIN PRN Hypoglycemia Protocol Famotidine 20 mg 11/17/21 10:00 11/30/21 09:40 Famotidine 20 Mg Tab FEEDTUBE 20 mg QDAY BAO Administration Hydrophilic Ointment 1 applic 11/11/21 20:56 Lip Therapy Vaseline TP Q2HR PRN Dry Lips Sodium Chloride 100 mls @ 999 mls/hr 11/26/21 12:30 Nacl 0.9% IV LONG PRN Hypotension NORepinephrine/NS 8 MG-250 ML 8 mg in 250 mls @ 3.75 mls/hr 11/29/21 11:00 Norepinephrine/Ns 8 Mg-250 Ml (Double Conc) IV TITRATE BAO Protocol 2 MCG/MIN Insulin Human Lispro 0 unit 11/12/21 00:00 11/30/21 12:07 Insulin Lispro 100 Unit/Ml SUB-Q Not Given Q6HR [facility] Protocol Lorazepam 2 mg 11/21/21 11:00 11/26/21 20:55 Lorazepam 2 Mg/Ml Vial IV 2 mg Q4H PRN Administration Agitation Midodrine 15 mg 11/29/21 12:00 11/30/21 12:40 Midodrine 5 Mg Tab PO 15 mg TID@0800,1200,1600 BAO Administration Multi-Ingred Cream/Lotion/Oil/Oint 1 applic 11/11/21 20:56 Mineral Oil/Petrolatum, White Ophth Oint 3.5 Gm OU Q4HR PRN Dry Eye(s) Ondansetron HCl 4 mg 11/11/21 22:40 Ondansetron 4 Mg/2 Ml Inj IV Q8H PRN Nausea And Vomiting Polyethylene Glycol 17 gm 11/27/21 10:00 Polyethylene Glycol 3350 17 Gm Powder PO QDAY PRN Constip unreliev by MOM/or NPO Quetiapine Fumarate 50 mg 11/28/21 22:00 11/29/21 22:08 Quetiapine 25 Mg Tab FEEDTUBE 50 mg QHS BAO Administration Senna 8.6 mg 11/17/21 10:00 11/30/21 09:41 Sennosides 8.6 Mg Tab FEEDTUBE 8.6 mg Q12H BAO Administration Sodium Chloride 10 ml 11/12/21 10:00 11/30/21 09:39 Sodium Chloride 0.9% 10 Ml Flush Syringe IV 10 ml BID BAO Administration Sodium Chloride 10 ml 11/11/21 22:40 Sodium Chloride 0.9% 10 Ml Flush Syringe IV PRN PRN LINE FLUSH Nutrition/Malnutrition Assess - Dietary Evaluation Nutrition/Malnutrition Findings: Nutrition Notes Start: 11/12/21 16:08 Freq: Status: Active Protocol: Document 11/28/21 15:01 TODD (Rec: 11/28/21 15:12 TODD [id number]) Nutrition Notes Initial or Follow up Reassessment Current Diagnosis Acute Kidney Injury,Diabetes, Hypertension,Respiratory Failure Other Pertinent Diagnosis Pneu Current Diet TF - Nepro at 50ml/hr Labs/Tests Na 136 BUN 49 Cr 6.6 Pertinent Medications Reviewed Height 5 ft 9 in Weight 272.155 kg [place] Body Weight (kg) 72.72 BMI 88.6 Weight change and time frame Unsure of current wt as bed scale not functioning properly ; scale needs to be re-zeroed Weight Status Morbidly Obese Subjective/Other Information Pt tolerating TF at goal rate. He remains on vent support. Trach and PEG tubes placed on 11/22. Pt had 2 large, loose stools on 11/26. Percent of energy/protein needs met: 99% energy 53% pro Burn Absent Trauma Absent #1 Nutrition Diagnosis Inadequate oral intake Diagnosis Progress(for reassessment Continues documentation) Is patient on ventilator? Yes Is Patient Ambulatory and/or Out of Bed No REE-([facility]-confined to bed) 4258.320 Kcal/Kg value to use for calculation 8 Approximate Energy Requirements Using 2177 kcal/Kg Calculation Used for Recommendations Kcal/kg Additional Notes Pro needs up to 2.5g/kg IBW: 182g/day Fluid needs 1-1.5L/day Nutrition Intervention Nutrition Support: Continue Nepro at 50ml/hr with 60ml water flush q4h (per MD order sec to hyponatremia). Kcal 2,160 Protein (gm) 97 Carbohydrates (gm) 193 Fat (gm) 115 Fluid (mL) 872 Fiber (gm) 15 Goal #1 TF tolerance Goal #2 TF to meet energy and pro needs as best possible Follow-Up By: 12/05/21 Additional Comments F/U: stable TF, wt, vent status, renal function <AMADO YODER - Last Filed: 12/01/21 07:08> Assessment and Plan Assessment and plan: I saw and evaluated the patient. I agree with the findings and the plan of care as documented in the Nurse Practitioner's~note, with the following corrections and additions. Hospitalist Physical - Constitutional Vitals: Temp Pulse Resp BP Pulse Ox 98.4 F 129 H 38 H 137/84 99 12/01/21 04:00 12/01/21 06:30 12/01/21 06:30 12/01/21 06:30 12/01/21 06:30 HEART Score - HEART Score Troponin: Troponin T 0.294 ng/mL (0.00-0.029) H* 11/22/21 08:30 Results - Labs CBC & Chem 7: 11/29/21 05:25 12/01/21 Unknown Labs: Laboratory Last Values WBC 9.4 K/mm3 (4.5-11.0) 11/29/21 05:25 RBC 2.76 M/mm3 (3.65-5.03) L 11/29/21 05:25 Hgb 7.6 gm/dl (11.8-15.2) L 11/29/21 05:25 Hct 24.3 % (35.5-45.6) L 11/29/21 05:25 MCV 88 fl (84-94) 11/29/21 05:25 MCH 27 pg (28-32) L 11/29/21 05:25 MCHC 31 % (32-34) L 11/29/21 05:25 RDW 17.7 % (13.2-15.2) H 11/29/21 05:25 Plt Count 302 K/mm3 (140-440) 11/29/21 05:25 Lymph % (Auto) 5.7 % (13.4-35.0) L 11/22/21 08:30 Bertie % (Auto) 13.0 % (0.0-7.3) H 11/22/21 08:30 Eos % (Auto) 1.4 % (0.0-4.3) 11/22/21 08:30 Baso % (Auto) 0.4 % (0.0-1.8) 11/22/21 08:30 Lymph # (Auto) 0.8 K/mm3 (1.2-5.4) L 11/22/21 08:30 Bertie # (Auto) 1.9 K/mm3 (0.0-0.8) H 11/22/21 08:30 Eos # (Auto) 0.2 K/mm3 (0.0-0.4) 11/22/21 08:30 Baso # (Auto) 0.1 K/mm3 (0.0-0.1) 11/22/21 08:30 Add Manual Diff Complete 11/12/21 06:55 Total Counted 100 11/12/21 06:55 Seg Neutrophils % 79.5 % (40.0-70.0) H 11/22/21 08:30 Seg Neuts % (Manual) 89.0 % (40.0-70.0) H 11/12/21 06:55 Band Neutrophils % 5.0 % 11/12/21 06:55 Lymphocytes % (Manual) 0 % (13.4-35.0) L 11/12/21 06:55 Reactive Lymphs % (Man) 0 % 11/12/21 06:55 Monocytes % (Manual) 3.0 % (0.0-7.3) 11/12/21 06:55 Eosinophils % (Manual) 0 % (0.0-4.3) 11/12/21 06:55 Basophils % (Manual) 0 % (0.0-1.8) 11/12/21 06:55 Metamyelocytes % 3.0 % 11/12/21 06:55 Myelocytes % 0 % 11/12/21 06:55 Promyelocytes % 0 % 11/12/21 06:55 Blast Cells % 0 % 11/12/21 06:55 Nucleated RBC % Not Reportable 11/12/21 06:55 Seg Neutrophils # 11.8 K/mm3 (1.8-7.7) H 11/22/21 08:30 Seg Neutrophils # Man 18.2 K/mm3 (1.8-7.7) H 11/12/21 06:55 Band Neutrophils # 1.0 K/mm3 11/12/21 06:55 Lymphocytes # (Manual) 0.0 K/mm3 (1.2-5.4) L 11/12/21 06:55 Abs React Lymphs (Man) 0.0 K/mm3 11/12/21 06:55 Monocytes # (Manual) 0.6 K/mm3 (0.0-0.8) 11/12/21 06:55 Eosinophils # (Manual) 0.0 K/mm3 (0.0-0.4) 11/12/21 06:55 Basophils # (Manual) 0.0 K/mm3 (0.0-0.1) 11/12/21 06:55 Metamyelocytes # 0.6 K/mm3 11/12/21 06:55 Myelocytes # 0.0 K/mm3 11/12/21 06:55 Promyelocytes # 0.0 K/mm3 11/12/21 06:55 Blast Cells # 0.0 K/mm3 11/12/21 06:55 WBC Morphology Not Reportable 11/12/21 06:55 Hypersegmented Neuts Not Reportable 11/12/21 06:55 Hyposegmented Neuts Not Reportable 11/12/21 06:55 Hypogranular Neuts Not Reportable 11/12/21 06:55 Smudge Cells Not Reportable 11/12/21 06:55 Toxic Granulation 1+ 11/12/21 06:55 Toxic Vacuolation Not Reportable 11/12/21 06:55 Dohle Bodies Not Reportable 11/12/21 06:55 Pelger-Huet Anomaly Not Reportable 11/12/21 06:55 Lissa Rods Not Reportable 11/12/21 06:55 Platelet Estimate Consistent w auto 11/12/21 06:55 Clumped Platelets Not Reportable 11/12/21 06:55 Plt Clumps, EDTA Not Reportable 11/12/21 06:55 Large Platelets Not Reportable 11/12/21 06:55 Giant Platelets Not Reportable 11/12/21 06:55 Platelet Satelliting Not Reportable 11/12/21 06:55 Plt Morphology Comment Not Reportable 11/12/21 06:55 RBC Morphology Normal 11/12/21 06:55 Dimorphic RBCs Not Reportable 11/12/21 06:55 Polychromasia Not Reportable 11/12/21 06:55 Hypochromasia Not Reportable 11/12/21 06:55 Poikilocytosis Not Reportable 11/12/21 06:55 Anisocytosis Not Reportable 11/12/21 06:55 Microcytosis Not Reportable 11/12/21 06:55 Macrocytosis Not Reportable 11/12/21 06:55 Spherocytes Not Reportable 11/12/21 06:55 Pappenheimer Bodies Not Reportable 11/12/21 06:55 Sickle Cells Not Reportable 11/12/21 06:55 Target Cells Not Reportable 11/12/21 06:55 Tear Drop Cells Not Reportable 11/12/21 06:55 Ovalocytes Not Reportable 11/12/21 06:55 Helmet Cells Not Reportable 11/12/21 06:55 [place] Bodies Not Reportable 11/12/21 06:55 [place] Rings Not Reportable 11/12/21 06:55 [place] Cells Not Reportable 11/12/21 06:55 Bite Cells Not Reportable 11/12/21 06:55 Crenated Cell Not Reportable 11/12/21 06:55 Elliptocytes Not Reportable 11/12/21 06:55 Acanthocytes (Spur) Not Reportable 11/12/21 06:55 Rouleaux Not Reportable 11/12/21 06:55 Hemoglobin C Crystals Not Reportable 11/12/21 06:55 Schistocytes Not Reportable 11/12/21 06:55 Malaria parasites Not Reportable 11/12/21 06:55 Nam Bodies Not Reportable 11/12/21 06:55 Hem Pathologist Commnt No 11/12/21 06:55 PT 14.4 Sec. (12.2-14.9) 11/22/21 04:00 INR 1.01 (0.87-1.13) 11/22/21 04:00 ABG pH 7.467 pH Units (7.350-7.450) H 11/18/21 04:35 ABG pCO2 37.1 mm Hg 11/18/21 04:35 ABG pO2 110.0 mm Hg (80.0-90.0) H 11/18/21 04:35 ABG HCO3 26.2 mmol/L (20.0-26.0) H 11/18/21 04:35 ABG O2 Saturation 98.1 % (95.0-99.0) 11/18/21 04:35 ABG O2 Content 11.3 (0.0-44) 11/18/21 04:35 ABG Base Excess 2.4 mmol/L (-2.0-3.0) 11/18/21 04:35 ABG Hemoglobin 8.1 gm/dl (14.0-18.0) L 11/18/21 04:35 ABG Carboxyhemoglobin 1.2 % (0.0-5.0) 11/18/21 04:35 ABG Methemoglobin 0.4 % (0.0-1.5) 11/18/21 04:35 Oxyhemoglobin 96.5 % (95.0-99.0) 11/18/21 04:35 FiO2 30 % 11/18/21 04:35 Sodium 135 mmol/L (137-145) L 12/01/21 Unknown Potassium 4.3 mmol/L (3.6-5.0) 12/01/21 Unknown Chloride 94.1 mmol/L (98-107) L 12/01/21 Unknown Carbon Dioxide 24 mmol/L (22-30) 12/01/21 Unknown Anion Gap 21 mmol/L 12/01/21 Unknown BUN 52 mg/dL (9-20) H 12/01/21 Unknown Creatinine 6.7 mg/dL (0.8-1.3) H 12/01/21 Unknown Estimated GFR 10 ml/min 12/01/21 Unknown BUN/Creatinine Ratio 8 % 12/01/21 Unknown Glucose 119 mg/dL (75-100) H 12/01/21 Unknown POC Glucose 122 mg/dL (70-105) H 12/01/21 05:37 Hemoglobin A1c 5.7 % (4-6) 11/12/21 06:55 Lactic Acid 0.90 mmol/L (0.7-2.0) 11/11/21 19:49 Calcium 8.9 mg/dL (8.4-10.2) 12/01/21 Unknown Phosphorus 4.50 mg/dL (2.5-4.5) D 11/30/21 04:00 Magnesium 2.10 mg/dL (1.7-2.3) 11/30/21 04:00 Iron 24 ug/dL (49-181) L 11/11/21 23:29 TIBC 157 mcg/dL (250-450) L 11/11/21 23:29 Total Bilirubin 0.40 mg/dL (0.1-1.2) 11/11/21 19:49 AST 10 units/L (5-40) 11/11/21 19:49 ALT 7 units/L (7-56) 11/11/21 19:49 Alkaline Phosphatase 111 units/L (35-129) 11/11/21 19:49 Total Creatine Kinase 534 units/L (55-170) H 11/22/21 08:30 CK-MB (CK-2) 2.4 ng/mL (0.0-4.0) 11/22/21 08:30 CK-MB (CK-2) Rel Index 0.4 (0-4) 11/22/21 08:30 Troponin T 0.294 ng/mL (0.00-0.029) H* 11/22/21 08:30 NT-Pro-B Natriuret Pep 3674 pg/mL (0-900) H 11/12/21 Unknown Total Protein 9.1 g/dL (6.3-8.2) H 11/11/21 19:49 Albumin 3.0 g/dL (3.9-5) L 11/11/21 19:49 Albumin/Globulin Ratio 0.5 % 11/11/21 19:49 Triglycerides 109 mg/dL (2-149) 11/21/21 04:00 Cholesterol 146 mg/dL (50-199) 11/11/21 19:49 LDL Cholesterol Direct 85 mg/dL (50-130) 11/11/21 19:49 HDL Cholesterol 43 mg/dL (40-59) 11/11/21 19:49 Cholesterol/HDL Ratio 3.39 % 11/11/21 19:49 PTH Intact 1174 pg/mL (15-65) H 11/11/21 23:29 Urine Color Yellow (Yellow) 11/12/21 02:20 Urine Turbidity Cloudy (Clear) 11/12/21 02:20 Urine pH 5.0 (5.0-7.0) 11/12/21 02:20 Ur Specific [place] 1.013 (1.003-1.030) 11/12/21 02:20 Urine Protein >500 mg/dL (Negative) 11/12/21 02:20 Urine Glucose (UA) Neg mg/dL (Negative) 11/12/21 02:20 Urine Ketones Neg mg/dL (Negative) 11/12/21 02:20 Urine Blood Sm (Negative) 11/12/21 02:20 Urine Nitrite Neg (Negative) 11/12/21 02:20 Urine Bilirubin Neg (Negative) 11/12/21 02:20 Urine Urobilinogen < 2.0 mg/dL (<2.0) 11/12/21 02:20 Ur Leukocyte Esterase Tr (Negative) 11/12/21 02:20 Urine WBC (Auto) 12.0 /HPF (0.0-6.0) H 11/12/21 02:20 Urine RBC (Auto) 4.0 /HPF (0.0-6.0) 11/12/21 02:20 U Epithel Cells (Auto) 9.0 /HPF (0-13.0) 11/12/21 02:20 Urine Bacteria (Auto) 2+ /HPF (Negative) 11/12/21 02:20 Urine Mucus Few /HPF 11/12/21 02:20 Urine Yeast (Budding) 3+ /HPF 11/12/21 02:20 Urine Eosinophils None seen (None Seen) 11/12/21 02:20 Urine Creatinine 189.3 mg/dL (0.1-20.0) H 11/12/21 02:20 Urine Sodium 30 mmol/L 11/12/21 02:20 Coronavirus (PCR) Negative (Negative) 11/22/21 Unknown Hepatitis A IgM Ab Non-reactive (NonReactive) 11/12/21 04:45 Hep Bs Antigen Non-reactive (Negative) 11/12/21 04:45 Hep B Core IgM Ab Non-reactive (NonReactive) 11/12/21 04:45 Hepatitis C Antibody Non-reactive (NonReactive) 11/12/21 04:45 Blood Type O POSITIVE 11/22/21 04:20 Antibody Screen Negative 11/22/21 04:20 Iglesias/IV: Voiding Method Incontinent Active Medications - Current Medications Current Medications: Generic Name Dose Route Start Last Admin Trade Name Freq PRN Reason Stop Dose Admin Acetaminophen 650 mg 11/11/21 22:40 Acetaminophen 325 Mg Tab PO Q4H PRN Pain MILD(1-3)/Fever >100.5/SOTO Albumin Human 12.5 gm 11/23/21 10:00 11/30/21 18:45 Albumin Human 25% (12.5 Gm/50 Ml) Inj IV 12.5 gm LONG PRN Administration Hypotension Albuterol 2.5 mg 11/11/21 22:40 Albuterol 2.5 Mg/3 Ml Nebu IH Q3HRT PRN Shortness Of Breath Aspirin 325 mg 11/17/21 10:00 11/30/21 09:39 Aspirin 325 Mg Tab FEEDTUBE 325 mg QDAY BAO Administration Atorvastatin Calcium 40 mg 11/17/21 22:00 11/30/21 21:08 Atorvastatin 40 Mg Tab FEEDTUBE 40 mg QHS BAO Administration Dextrose 50 ml 11/18/21 13:00 Dextrose 50% In Water (25gm) 50 Ml Syringe IV Q30MIN PRN Hypoglycemia Protocol Famotidine 20 mg 11/17/21 10:00 11/30/21 09:40 Famotidine 20 Mg Tab FEEDTUBE 20 mg QDAY BAO Administration Hydrophilic Ointment 1 applic 11/11/21 20:56 Lip Therapy Vaseline TP Q2HR PRN Dry Lips Sodium Chloride 100 mls @ 999 mls/hr 11/26/21 12:30 Nacl 0.9% IV LONG PRN Hypotension NORepinephrine/NS 8 MG-250 ML 8 mg in 250 mls @ 3.75 mls/hr 11/29/21 11:00 12/01/21 06:20 Norepinephrine/Ns 8 Mg-250 Ml (Double Conc) IV 10 mcg/min TITRATE BAO 18.75 mls/hr Titration Protocol 2 MCG/MIN Insulin Human Lispro 0 unit 11/12/21 00:00 12/01/21 00:00 Insulin Lispro 100 Unit/Ml SUB-Q Not Given Q6HR [facility] Protocol Lorazepam 2 mg 11/21/21 11:00 12/01/21 05:16 Lorazepam 2 Mg/Ml Vial IV 2 mg Q4H PRN Administration Agitation Midodrine 15 mg 11/29/21 12:00 11/30/21 16:41 Midodrine 5 Mg Tab PO 15 mg TID@0800,1200,1600 BAO Administration Multi-Ingred Cream/Lotion/Oil/Oint 1 applic 11/11/21 20:56 Mineral Oil/Petrolatum, White Ophth Oint 3.5 Gm OU Q4HR PRN Dry Eye(s) Ondansetron HCl 4 mg 11/11/21 22:40 Ondansetron 4 Mg/2 Ml Inj IV Q8H PRN Nausea And Vomiting Polyethylene Glycol 17 gm 11/27/21 10:00 Polyethylene Glycol 3350 17 Gm Powder PO QDAY PRN Constip unreliev by MOM/or NPO Quetiapine Fumarate 50 mg 11/28/21 22:00 11/30/21 21:08 Quetiapine 25 Mg Tab FEEDTUBE 50 mg QHS BAO Administration Senna 8.6 mg 11/17/21 10:00 11/30/21 21:09 Sennosides 8.6 Mg Tab FEEDTUBE Not Given Q12H BAO Sodium Chloride 10 ml 11/12/21 10:00 11/30/21 21:08 Sodium Chloride 0.9% 10 Ml Flush Syringe IV 10 ml BID BAO Administration Sodium Chloride 10 ml 11/11/21 22:40 Sodium Chloride 0.9% 10 Ml Flush Syringe IV PRN PRN LINE FLUSH Nutrition/Malnutrition Assess - Dietary Evaluation Nutrition/Malnutrition Findings: Nutrition Notes Start: 11/12/21 16:08 Freq: Status: Active Protocol: Document 11/28/21 15:01 TODD (Rec: 11/28/21 15:12 TODD [id number]) Nutrition Notes Initial or Follow up Reassessment Current Diagnosis Acute Kidney Injury,Diabetes, Hypertension,Respiratory Failure Other Pertinent Diagnosis Pneu Current Diet TF - Nepro at 50ml/hr Labs/Tests Na 136 BUN 49 Cr 6.6 Pertinent Medications Reviewed Height 5 ft 9 in Weight 272.155 kg [place] Body Weight (kg) 72.72 BMI 88.6 Weight change and time frame Unsure of current wt as bed scale not functioning properly ; scale needs to be re-zeroed Weight Status Morbidly Obese Subjective/Other Information Pt tolerating TF at goal rate. He remains on vent support. Trach and PEG tubes placed on 11/22. Pt had 2 large, loose stools on 11/26. Percent of energy/protein needs met: 99% energy 53% pro Burn Absent Trauma Absent #1 Nutrition Diagnosis Inadequate oral intake Diagnosis Progress(for reassessment Continues documentation) Is patient on ventilator? Yes Is Patient Ambulatory and/or Out of Bed No REE-([facility]-confined to bed) 4258.320 Kcal/Kg value to use for calculation 8 Approximate Energy Requirements Using 2177 kcal/Kg Calculation Used for Recommendations Kcal/kg Additional Notes Pro needs up to 2.5g/kg IBW: 182g/day Fluid needs 1-1.5L/day Nutrition Intervention Nutrition Support: Continue Nepro at 50ml/hr with 60ml water flush q4h (per MD order sec to hyponatremia). Kcal 2,160 Protein (gm) 97 Carbohydrates (gm) 193 Fat (gm) 115 Fluid (mL) 872 Fiber (gm) 15 Goal #1 TF tolerance Goal #2 TF to meet energy and pro needs as best possible Follow-Up By: 12/05/21 Additional Comments F/U: stable TF, wt, vent status, renal function
[2021-11-30] MEDS: ALBUMIN HUMAN 25% (12.5 GM/50 ML) INJ IV PRN (18:45)
[2021-11-30] MEDS: QUEtiapine 25 MG TAB FEEDTUBE SCH (21:08)
[2021-11-30] MEDS: LORazepam 2 MG/ML VIAL IV PRN (23:43)
[2021-12-01] MEDS: NORepinephrine/NS 8 MG-250 ML 8 MG/250 ML INFUS..BTL IV SCH (02:01)
[2021-12-01] MEDS ORDERED: HYDROmorphone 1 MG/1 ML INJ IV ONE (03:32)
[2021-12-01] MEDS: LORazepam 2 MG/ML VIAL IV PRN (05:16)
[2021-12-01 05:52] LABS: Calcium 8.9 mg/dL (8.4-10.2)
[2021-12-01] MEDS: MIDODRINE 5 MG TAB PO SCH ×3 (08:14→17:55)
[2021-12-01] MEDS: FAMOTIDINE 20 MG TAB FEEDTUBE SCH (09:56)
[2021-12-01] MEDS: ASPIRIN 325 MG TAB FEEDTUBE SCH (09:56)
[2021-12-01] MEDS: SENNOSIDES 8.6 MG TAB FEEDTUBE SCH ×2 (09:56→21:00)
--- NOTE | 2021-12-01 10:46 | Progress Note ---
Assessment and Plan 56 y/o morbidly obese male with acute respiratory failure, requiring intubation and now in acute renal failure and in need of HD 12/01/21: Continue Midodrine at 15. HD per renal. Daily PSV trials. Agree with LTACH transfer. Per CM, patient can get permcath placed there. 11/30/21: increase in midodrine appears to be working, off levo. HD today and hope he does not require pressors. Daily PSV trials and LTACH placement 11/29/21: Increase Midodrine to 15 TID. Continue nightly seroquel. HD per renal. Await Ltach placement 11/28/21: Daily PSV trials. HD today. Restarted antipsychotics at night. Seroquel at 50 11/27/21: Daily PSV trials. HD per renal. LTACH next week. Stopped Haldol today. 11/26/21: Can likely stop haldol today as delirium seems to be stablized. LTACH next week. 11/25/21: Continue scheduled haldol. Ok if renal wants to dialyze but would consider only cleaning and not fluid removal as pulm status is stable. LTACH placement 11/24/21: Start scheduled haldol and see if we can wean sedation of. Hold on HD today. LTACH. 11/23/21: Successful trach and peg on yesterday. HD today, post HD start weaning trials. Will need LTACH. Will ask renal about Permcath placement 11/22/21: Follow up post op. Will need LTACH. HD per renal, need to ask them if he will need permacath as well. 11/21/21: Reviewed Gen Surg note. Will reach out to them for further discussion. Continue aggressive volume removal. Wean Pressors as tolerated. 11/18/21: Await Gen Surg comments as they were checking on OR supplies. If not able to, will start working on transfer as patient will need trach given current clinical state. HD per renal. Wean pressors as tolerated. Guarded to poor prognosis. 11/17/21: Follow up Gen Surge eval, they are checking to see the materials they have in OR. Reviewed neck ultrasound, per their read trachea is only about an 1inch away from the skin. Shocking given his neck size but given the difficulty in intubation and his entrance being anterior, this makes sense. Will defer to surgery call but have no problem with calling for transfer as well. Wean Pressors as tolerated. HD per renal. Continue sedation for RASS of 0. Guarded to poor prognosis. 11/16/21: Given patient body habitus, difficult airway and likely no improvement in current clinical state, will need trach. However given his neck size, I would suggest this be done by ENT as I am not even sure that the bovona XLT is long enough. Ok to consult surgery here but I suggest seeking transfer to a tertiary care facility with ENT to attempt this. Also suggest obtaining neck CT to further evaluate total neck anatomy that way if we need to send this over prior to acceptance we can. Guarded prognosis but mental status is intact. HD per renal. 11/15/21: stop sedation. Attempt PSV. Bipap PRN and QHS. Hopeful extubation today. HD per renal. 11/14/21: Wean PEEP again today and attempt PSV trial. If passes will attempt extubation. HD per renal 11/13/21: HD per renal. No PSV trials today. Wean PEEP after HD. Guarded prognosis. 1. Obtain ABG 2. Place Iglesias catheter 3. Wean Pressors for maps greater than 65 4. Insulin, D50 for Hyperkalemia, and HD per renal 5. Stopped scheduled duonebs 6. Stopped abx 7. Obtain BNP with morning labs 8. Guarded prognosis. CCT 31 minutes. Subjective Date of service: 12/01/21 Principal diagnosis: Acute respiratory failure, Interval history: No acute events. Per CM going today at 1600 to LTACH Objective Vital Signs - 12hr 12/01/21 12/01/21 12/01/21 00:00 00:56 01:01 Temperature 98.3 F Pulse Rate 86 75 Pulse Rate [ 81 From Monitor] Pulse Rate [ 92 H None] Respiratory 19 20 Rate Blood Pressure 129/66 129/66 O2 Sat by Pulse 99 98 96 Oximetry O2 Sat by Pulse Oximetry [ Assessment] 12/01/21 12/01/21 12/01/21 01:09 01:19 01:31 Temperature Pulse Rate 84 85 Pulse Rate [ From Monitor] Pulse Rate [ None] Respiratory 20 20 Rate Blood Pressure 123/84 O2 Sat by Pulse 99 99 Oximetry O2 Sat by Pulse 99 Oximetry [ Assessment] 12/01/21 12/01/2122 02:01 02:31 03:00 Temperature Pulse Rate 85 92 H 97 H Pulse Rate [ From Monitor] Pulse Rate [ None] Respiratory 17 20 21 Rate Blood Pressure 136/86 O2 Sat by Pulse 99 99 98 Oximetry O2 Sat by Pulse Oximetry [ Assessment] 12/01/21 12/01/21 12/01/21 03:30 04:00 04:27 Temperature 98.4 F Pulse Rate 91 H 86 94 H Pulse Rate [ 81 From Monitor] Pulse Rate [ None] Respiratory 20 20 Rate Blood Pressure 130/85 154/79 140/73 O2 Sat by Pulse 99 99 99 Oximetry O2 Sat by Pulse Oximetry [ Assessment] 12/01/21 12/01/21 12/01/21 04:31 05:00 05:30 Temperature Pulse Rate 96 H 119 H 91 H Pulse Rate [ From Monitor] Pulse Rate [ None] Respiratory 20 16 19 Rate Blood Pressure 80/55 93/53 145/86 O2 Sat by Pulse 99 98 100 Oximetry O2 Sat by Pulse Oximetry [ Assessment] 12/01/21 12/01/21 12/01/21 06:00 06:30 07:00 Temperature Pulse Rate 123 H 129 H 97 H Pulse Rate [ From Monitor] Pulse Rate [ None] Respiratory 17 38 H 23 Rate Blood Pressure 139/85 137/84 120/73 O2 Sat by Pulse 99 99 99 Oximetry O2 Sat by Pulse Oximetry [ Assessment] 12/01/21 12/01/21 12/01/21 07:30 08:00 08:01 Temperature 99.4 F Pulse Rate 127 H 129 H 127 H Pulse Rate [ From Monitor] Pulse Rate [ None] Respiratory 29 H 38 H 19 Rate Blood Pressure 116/55 102/63 102/63 O2 Sat by Pulse 99 99 99 Oximetry O2 Sat by Pulse 99 Oximetry [ Assessment] 12/01/21 08:21 Temperature Pulse Rate 129 H Pulse Rate [ From Monitor] Pulse Rate [ None] Respiratory 24 Rate Blood Pressure 109/57 O2 Sat by Pulse 99 Oximetry O2 Sat by Pulse Oximetry [ Assessment] Constitutional: comatose Eyes: non-icteric ENT: other (orally intubated and sedated) Neck: supple, other (large in circumference) Effort: normal Ascultation: Bilateral: diminished breath sounds Cardiovascular: regular rate and rhythm Gastrointestinal: normoactive bowel sounds Extremities: edema, anasarca Neurologic: unable to assess CBC and BMP: 11/29/21 05:25 12/01/21 Unknown ABG, PT/INR, D-dimer: ABG ABG pH 7.467 pH Units (7.350-7.450) H 11/18/21 04:35 ABG pCO2 37.1 mm Hg 11/18/21 04:35 ABG pO2 110.0 mm Hg (80.0-90.0) H 11/18/21 04:35 ABG O2 Saturation 98.1 % (95.0-99.0) 11/18/21 04:35 PT/INR, D-dimer PT 14.4 Sec. (12.2-14.9) 11/22/21 04:00 INR 1.01 (0.87-1.13) 11/22/21 04:00 Abnormal lab findings: Abnormal Labs 11/11/21 11/11/21 11/11/21 19:49 19:49 23:29 WBC 11.5 H RBC Hgb 10.1 L Hct 34.8 L MCH 27 L MCHC 29 L RDW 20.1 H Lymph % (Auto) 10.0 L [place] % (Auto) 8.8 H Lymph # (Auto) 1.1 L [place] # (Auto) 1.0 H Seg Neutrophils % 79.8 H Seg Neuts % (Manual) Lymphocytes % (Manual) Seg Neutrophils # 9.2 H Seg Neutrophils # Man Lymphocytes # (Manual) ABG pH ABG pO2 ABG HCO3 ABG O2 Saturation ABG Base Excess ABG Hemoglobin Sodium Potassium 7.6 H* Chloride 107.8 H Carbon Dioxide 13 L BUN 107 H Creatinine 13.8 H Glucose POC Glucose Calcium 7.5 L Phosphorus Magnesium Iron TIBC Total Creatine Kinase 268 H Troponin T 0.324 H* NT-Pro-B Natriuret Pep Total Protein 9.1 H Albumin 3.0 L PTH Intact Urine WBC (Auto) Urine Creatinine 11/11/21 11/11/21 11/12/21 23:29 23:29 02:20 WBC RBC Hgb Hct MCH MCHC RDW Lymph % (Auto) [place] % (Auto) Lymph # (Auto) [place] # (Auto) Seg Neutrophils % Seg Neuts % (Manual) Lymphocytes % (Manual) Seg Neutrophils # Seg Neutrophils # Man Lymphocytes # (Manual) ABG pH ABG pO2 ABG HCO3 ABG O2 Saturation ABG Base Excess ABG Hemoglobin Sodium Potassium Chloride Carbon Dioxide BUN Creatinine Glucose POC Glucose Calcium Phosphorus Magnesium Iron 24 L TIBC 157 L Total Creatine Kinase Troponin T NT-Pro-B Natriuret Pep Total Protein Albumin PTH Intact 1174 H Urine WBC (Auto) Urine Creatinine 189.3 H 11/12/21 11/12/21 11/12/21 02:20 02:28 06:55 WBC 20.5 H RBC 3.54 L Hgb 9.4 L Hct 32.3 L MCH 27 L MCHC 29 L RDW 20.0 H Lymph % (Auto) [place] % (Auto) Lymph # (Auto) [place] # (Auto) Seg Neutrophils % Seg Neuts % (Manual) 89.0 H Lymphocytes % (Manual) 0 L Seg Neutrophils # Seg Neutrophils # Man 18.2 H Lymphocytes # (Manual) 0.0 L ABG pH 7.172 L* ABG pO2 100.6 H ABG HCO3 17.4 L ABG O2 Saturation ABG Base Excess -10.6 L ABG Hemoglobin 9.4 L Sodium Potassium Chloride Carbon Dioxide BUN Creatinine Glucose POC Glucose Calcium Phosphorus Magnesium Iron TIBC Total Creatine Kinase Troponin T NT-Pro-B Natriuret Pep Total Protein Albumin PTH Intact Urine WBC (Auto) 12.0 H Urine Creatinine 11/12/21 11/12/21 11/12/21 06:55 09:10 12:01 WBC RBC Hgb Hct MCH MCHC RDW Lymph % (Auto) [place] % (Auto) Lymph # (Auto) [place] # (Auto) Seg Neutrophils % Seg Neuts % (Manual) Lymphocytes % (Manual) Seg Neutrophils # Seg Neutrophils # Man Lymphocytes # (Manual) ABG pH 7.296 L ABG pO2 237.3 H ABG HCO3 ABG O2 Saturation 99.3 H ABG Base Excess -6.0 L ABG Hemoglobin 8.8 L Sodium Potassium 5.5 H D Chloride 107.1 H Carbon Dioxide 19 L BUN 78 H Creatinine 9.4 H Glucose 119 H POC Glucose 106 H Calcium 8.1 L Phosphorus Magnesium Iron TIBC Total Creatine Kinase Troponin T NT-Pro-B Natriuret Pep Total Protein Albumin PTH Intact Urine WBC (Auto) Urine Creatinine 11/12/21 11/12/21 11/12/21 16:46 16:46 22:30 WBC RBC Hgb Hct MCH MCHC RDW Lymph % (Auto) [place] % (Auto) Lymph # (Auto) [place] # (Auto) Seg Neutrophils % Seg Neuts % (Manual) Lymphocytes % (Manual) Seg Neutrophils # Seg Neutrophils # Man Lymphocytes # (Manual) ABG pH ABG pO2 ABG HCO3 ABG O2 Saturation ABG Base Excess ABG Hemoglobin Sodium 146 H Potassium Chloride 108.2 H Carbon Dioxide 21 L BUN 66 H Creatinine 9.8 H Glucose 125 H POC Glucose Calcium 7.8 L Phosphorus Magnesium Iron TIBC Total Creatine Kinase Troponin T 0.319 H* 0.313 H* NT-Pro-B Natriuret Pep Total Protein Albumin PTH Intact Urine WBC (Auto) Urine Creatinine 11/12/21 11/12/21 11/13/21 23:18 Unknown 04:00 WBC 17.2 H RBC 3.09 L Hgb 8.4 L Hct 27.5 L MCH 27 L MCHC 30 L RDW 19.6 H Lymph % (Auto) [place] % (Auto) Lymph # (Auto) [place] # (Auto) Seg Neutrophils % Seg Neuts % (Manual) Lymphocytes % (Manual) Seg Neutrophils # Seg Neutrophils # Man Lymphocytes # (Manual) ABG pH ABG pO2 ABG HCO3 ABG O2 Saturation ABG Base Excess ABG Hemoglobin Sodium Potassium Chloride Carbon Dioxide BUN Creatinine Glucose POC Glucose 120 H Calcium Phosphorus Magnesium Iron TIBC Total Creatine Kinase Troponin T NT-Pro-B Natriuret Pep 3674 H Total Protein Albumin PTH Intact Urine WBC (Auto) Urine Creatinine 11/13/21 11/13/21 11/13/21 04:00 04:00 05:23 WBC RBC Hgb Hct MCH MCHC RDW Lymph % (Auto) [place] % (Auto) Lymph # (Auto) [place] # (Auto) Seg Neutrophils % Seg Neuts % (Manual) Lymphocytes % (Manual) Seg Neutrophils # Seg Neutrophils # Man Lymphocytes # (Manual) ABG pH 7.274 L ABG pO2 93.2 H ABG HCO3 ABG O2 Saturation ABG Base Excess -3.9 L ABG Hemoglobin 8.2 L Sodium Potassium Chloride Carbon Dioxide 21 L BUN 71 H Creatinine 9.9 H Glucose 128 H POC Glucose 117 H Calcium 7.7 L Phosphorus 5.10 H Magnesium 1.60 L Iron TIBC Total Creatine Kinase Troponin T NT-Pro-B Natriuret Pep Total Protein Albumin PTH Intact Urine WBC (Auto) Urine Creatinine 11/13/21 11/13/21 11/14/21 16:20 23:31 04:10 WBC RBC Hgb Hct MCH MCHC RDW Lymph % (Auto) [place] % (Auto) Lymph # (Auto) [place] # (Auto) Seg Neutrophils % Seg Neuts % (Manual) Lymphocytes % (Manual) Seg Neutrophils # Seg Neutrophils # Man Lymphocytes # (Manual) ABG pH ABG pO2 107.1 H ABG HCO3 ABG O2 Saturation ABG Base Excess ABG Hemoglobin 6.5 L Sodium Potassium Chloride Carbon Dioxide BUN Creatinine Glucose POC Glucose 125 H 123 H Calcium Phosphorus Magnesium Iron TIBC Total Creatine Kinase Troponin T NT-Pro-B Natriuret Pep Total Protein Albumin PTH Intact Urine WBC (Auto) Urine Creatinine 11/14/21 11/14/21 11/14/21 06:30 06:30 15:00 WBC 11.2 H RBC 3.03 L Hgb 8.1 L Hct 26.6 L MCH 27 L MCHC 30 L RDW 19.3 H Lymph % (Auto) [place] % (Auto) Lymph # (Auto) [place] # (Auto) Seg Neutrophils % Seg Neuts % (Manual) Lymphocytes % (Manual) Seg Neutrophils # Seg Neutrophils # Man Lymphocytes # (Manual) ABG pH ABG pO2 ABG HCO3 ABG O2 Saturation ABG Base Excess ABG Hemoglobin Sodium Potassium 3.0 L D 3.4 L Chloride Carbon Dioxide BUN 41 H Creatinine 7.0 H Glucose 107 H POC Glucose Calcium 7.5 L Phosphorus Magnesium 1.60 L Iron TIBC Total Creatine Kinase Troponin T NT-Pro-B Natriuret Pep Total Protein Albumin PTH Intact Urine WBC (Auto) Urine Creatinine 11/14/21 11/15/21 11/15/21 17:24 04:00 04:00 WBC 11.3 H RBC 3.00 L Hgb 8.1 L Hct 26.3 L MCH 27 L MCHC 31 L RDW 19.2 H Lymph % (Auto) [place] % (Auto) Lymph # (Auto) [place] # (Auto) Seg Neutrophils % Seg Neuts % (Manual) Lymphocytes % (Manual) Seg Neutrophils # Seg Neutrophils # Man Lymphocytes # (Manual) ABG pH ABG pO2 ABG HCO3 ABG O2 Saturation ABG Base Excess ABG Hemoglobin Sodium Potassium 3.4 L Chloride Carbon Dioxide BUN 32 H Creatinine 5.9 H Glucose 117 H POC Glucose 124 H Calcium 8.3 L Phosphorus Magnesium Iron TIBC Total Creatine Kinase Troponin T NT-Pro-B Natriuret Pep Total Protein Albumin PTH Intact Urine WBC (Auto) Urine Creatinine 11/15/21 11/15/21 11/16/21 13:58 16:20 04:00 WBC 13.2 H RBC 2.88 L Hgb 7.8 L Hct 25.2 L MCH 27 L MCHC 31 L RDW 19.1 H Lymph % (Auto) [place] % (Auto) Lymph # (Auto) [place] # (Auto) Seg Neutrophils % Seg Neuts % (Manual) Lymphocytes % (Manual) Seg Neutrophils # Seg Neutrophils # Man Lymphocytes # (Manual) ABG pH 7.335 L ABG pO2 254.0 H ABG HCO3 26.2 H ABG O2 Saturation 99.4 H ABG Base Excess ABG Hemoglobin 8.5 L Sodium Potassium Chloride Carbon Dioxide BUN Creatinine Glucose POC Glucose 132 H Calcium Phosphorus Magnesium Iron TIBC Total Creatine Kinase Troponin T NT-Pro-B Natriuret Pep Total Protein Albumin PTH Intact Urine WBC (Auto) Urine Creatinine 11/16/21 11/16/21 11/16/21 04:00 04:05 11:06 WBC RBC Hgb Hct MCH MCHC RDW Lymph % (Auto) [place] % (Auto) Lymph # (Auto) [place] # (Auto) Seg Neutrophils % Seg Neuts % (Manual) Lymphocytes % (Manual) Seg Neutrophils # Seg Neutrophils # Man Lymphocytes # (Manual) ABG pH ABG pO2 115.6 H ABG HCO3 ABG O2 Saturation ABG Base Excess ABG Hemoglobin 8.1 L Sodium Potassium Chloride Carbon Dioxide BUN 44 H Creatinine 7.7 H Glucose 104 H POC Glucose 106 H Calcium 7.9 L Phosphorus Magnesium Iron TIBC Total Creatine Kinase Troponin T NT-Pro-B Natriuret Pep Total Protein Albumin PTH Intact Urine WBC (Auto) Urine Creatinine 11/16/21 11/16/21 11/17/21 18:05 23:51 04:15 WBC 11.8 H RBC 3.02 L Hgb 8.1 L Hct 26.9 L MCH 27 L MCHC 30 L RDW 18.9 H Lymph % (Auto) [place] % (Auto) Lymph # (Auto) [place] # (Auto) Seg Neutrophils % Seg Neuts % (Manual) Lymphocytes % (Manual) Seg Neutrophils # Seg Neutrophils # Man Lymphocytes # (Manual) ABG pH ABG pO2 ABG HCO3 ABG O2 Saturation ABG Base Excess ABG Hemoglobin Sodium Potassium Chloride Carbon Dioxide BUN Creatinine Glucose POC Glucose 109 H 118 H Calcium Phosphorus Magnesium Iron TIBC Total Creatine Kinase Troponin T NT-Pro-B Natriuret Pep Total Protein Albumin PTH Intact Urine WBC (Auto) Urine Creatinine 11/17/21 11/17/21 11/17/21 04:15 04:25 11:25 WBC RBC Hgb Hct MCH MCHC RDW Lymph % (Auto) [place] % (Auto) Lymph # (Auto) [place] # (Auto) Seg Neutrophils % Seg Neuts % (Manual) Lymphocytes % (Manual) Seg Neutrophils # Seg Neutrophils # Man Lymphocytes # (Manual) ABG pH ABG pO2 153.8 H ABG HCO3 ABG O2 Saturation ABG Base Excess ABG Hemoglobin 8.3 L Sodium Potassium Chloride Carbon Dioxide BUN 33 H Creatinine 6.2 H Glucose 118 H POC Glucose 108 H Calcium Phosphorus Magnesium Iron TIBC Total Creatine Kinase Troponin T NT-Pro-B Natriuret Pep Total Protein Albumin PTH Intact Urine WBC (Auto) Urine Creatinine 11/18/21 11/18/21 11/18/21 04:00 04:00 04:35 WBC RBC 2.88 L Hgb 7.8 L Hct 25.3 L MCH 27 L MCHC 31 L RDW 18.7 H Lymph % (Auto) [place] % (Auto) Lymph # (Auto) [place] # (Auto) Seg Neutrophils % Seg Neuts % (Manual) Lymphocytes % (Manual) Seg Neutrophils # Seg Neutrophils # Man Lymphocytes # (Manual) ABG pH 7.467 H ABG pO2 110.0 H ABG HCO3 26.2 H ABG O2 Saturation ABG Base Excess ABG Hemoglobin 8.1 L Sodium Potassium Chloride Carbon Dioxide BUN 28 H Creatinine 5.5 H Glucose POC Glucose Calcium Phosphorus Magnesium Iron TIBC Total Creatine Kinase Troponin T NT-Pro-B Natriuret Pep Total Protein Albumin PTH Intact Urine WBC (Auto) Urine Creatinine 11/18/21 11/19/21 11/19/21 11:50 04:00 11:30 WBC RBC Hgb Hct MCH MCHC RDW Lymph % (Auto) [place] % (Auto) Lymph # (Auto) [place] # (Auto) Seg Neutrophils % Seg Neuts % (Manual) Lymphocytes % (Manual) Seg Neutrophils # Seg Neutrophils # Man Lymphocytes # (Manual) ABG pH ABG pO2 ABG HCO3 ABG O2 Saturation ABG Base Excess ABG Hemoglobin Sodium Potassium Chloride Carbon Dioxide BUN 26 H Creatinine 4.7 H Glucose 110 H POC Glucose 131 H 106 H Calcium Phosphorus Magnesium Iron TIBC Total Creatine Kinase Troponin T NT-Pro-B Natriuret Pep Total Protein Albumin PTH Intact Urine WBC (Auto) Urine Creatinine 11/19/21 11/20/21 11/20/21 17:09 00:14 04:00 WBC RBC Hgb Hct MCH MCHC RDW Lymph % (Auto) [place] % (Auto) Lymph # (Auto) [place] # (Auto) Seg Neutrophils % Seg Neuts % (Manual) Lymphocytes % (Manual) Seg Neutrophils # Seg Neutrophils # Man Lymphocytes # (Manual) ABG pH ABG pO2 ABG HCO3 ABG O2 Saturation ABG Base Excess ABG Hemoglobin Sodium 134 L Potassium Chloride 94.4 L Carbon Dioxide BUN 25 H Creatinine 4.6 H Glucose 117 H POC Glucose 129 H 115 H Calcium Phosphorus Magnesium Iron TIBC Total Creatine Kinase Troponin T NT-Pro-B Natriuret Pep Total Protein Albumin PTH Intact Urine WBC (Auto) Urine Creatinine 11/20/21 11/21/21 11/21/21 11:36 04:00 04:00 WBC 12.0 H RBC 2.85 L Hgb 7.8 L Hct 24.8 L MCH MCHC RDW 18.5 H Lymph % (Auto) [place] % (Auto) Lymph # (Auto) [place] # (Auto) Seg Neutrophils % Seg Neuts % (Manual) Lymphocytes % (Manual) Seg Neutrophils # Seg Neutrophils # Man Lymphocytes # (Manual) ABG pH ABG pO2 ABG HCO3 ABG O2 Saturation ABG Base Excess ABG Hemoglobin Sodium 133 L Potassium Chloride 95.3 L Carbon Dioxide BUN 40 H Creatinine 6.2 H Glucose 103 H POC Glucose 117 H Calcium Phosphorus Magnesium Iron TIBC Total Creatine Kinase Troponin T NT-Pro-B Natriuret Pep Total Protein Albumin PTH Intact Urine WBC (Auto) Urine Creatinine 11/21/21 11/21/21 11/22/21 11:38 18:13 00:41 WBC RBC Hgb Hct MCH MCHC RDW Lymph % (Auto) [place] % (Auto) Lymph # (Auto) [place] # (Auto) Seg Neutrophils % Seg Neuts % (Manual) Lymphocytes % (Manual) Seg Neutrophils # Seg Neutrophils # Man Lymphocytes # (Manual) ABG pH ABG pO2 ABG HCO3 ABG O2 Saturation ABG Base Excess ABG Hemoglobin Sodium Potassium Chloride Carbon Dioxide BUN Creatinine Glucose POC Glucose 127 H 112 H 106 H Calcium Phosphorus Magnesium Iron TIBC Total Creatine Kinase Troponin T NT-Pro-B Natriuret Pep Total Protein Albumin PTH Intact Urine WBC (Auto) Urine Creatinine 11/22/21 11/22/21 11/22/21 04:00 04:00 08:30 WBC 16.1 H 14.8 H RBC 3.01 L 2.95 L Hgb 8.1 L 7.8 L Hct 26.6 L 26.3 L MCH 27 L 27 L MCHC 31 L 30 L RDW 18.3 H 18.9 H Lymph % (Auto) 5.7 L [place] % (Auto) 13.0 H Lymph # (Auto) 0.8 L [place] # (Auto) 1.9 H Seg Neutrophils % 79.5 H Seg Neuts % (Manual) Lymphocytes % (Manual) Seg Neutrophils # 11.8 H Seg Neutrophils # Man Lymphocytes # (Manual) ABG pH ABG pO2 ABG HCO3 ABG O2 Saturation ABG Base Excess ABG Hemoglobin Sodium 136 L Potassium Chloride 97.6 L Carbon Dioxide BUN 35 H Creatinine 5.8 H Glucose 120 H POC Glucose Calcium Phosphorus 4.80 H D Magnesium 3.80 H Iron TIBC Total Creatine Kinase Troponin T NT-Pro-B Natriuret Pep Total Protein Albumin PTH Intact Urine WBC (Auto) Urine Creatinine 11/22/21 11/22/21 11/23/21 08:30 16:39 04:00 WBC 13.7 H RBC 2.93 L Hgb 7.8 L Hct 25.7 L MCH 27 L MCHC 30 L RDW 18.5 H Lymph % (Auto) [place] % (Auto) Lymph # (Auto) [place] # (Auto) Seg Neutrophils % Seg Neuts % (Manual) Lymphocytes % (Manual) Seg Neutrophils # Seg Neutrophils # Man Lymphocytes # (Manual) ABG pH ABG pO2 ABG HCO3 ABG O2 Saturation ABG Base Excess ABG Hemoglobin Sodium Potassium 5.3 H Chloride Carbon Dioxide BUN 36 H Creatinine 6.1 H Glucose 117 H POC Glucose 119 H Calcium Phosphorus Magnesium Iron TIBC Total Creatine Kinase 534 H Troponin T 0.294 H* NT-Pro-B Natriuret Pep Total Protein Albumin PTH Intact Urine WBC (Auto) Urine Creatinine 11/23/21 11/23/21 11/23/21 04:00 11:56 17:20 WBC RBC Hgb Hct MCH MCHC RDW Lymph % (Auto) [place] % (Auto) Lymph # (Auto) [place] # (Auto) Seg Neutrophils % Seg Neuts % (Manual) Lymphocytes % (Manual) Seg Neutrophils # Seg Neutrophils # Man Lymphocytes # (Manual) ABG pH ABG pO2 ABG HCO3 ABG O2 Saturation ABG Base Excess ABG Hemoglobin Sodium Potassium Chloride Carbon Dioxide BUN 27 H Creatinine 5.1 H Glucose 106 H POC Glucose 118 H 110 H Calcium Phosphorus Magnesium Iron TIBC Total Creatine Kinase Troponin T NT-Pro-B Natriuret Pep Total Protein Albumin PTH Intact Urine WBC (Auto) Urine Creatinine 11/24/21 11/24/21 11/24/21 04:30 04:30 05:30 WBC 14.0 H RBC 2.77 L Hgb 7.4 L Hct 24.4 L MCH 27 L MCHC 30 L RDW 18.5 H Lymph % (Auto) [place] % (Auto) Lymph # (Auto) [place] # (Auto) Seg Neutrophils % Seg Neuts % (Manual) Lymphocytes % (Manual) Seg Neutrophils # Seg Neutrophils # Man Lymphocytes # (Manual) ABG pH ABG pO2 ABG HCO3 ABG O2 Saturation ABG Base Excess ABG Hemoglobin Sodium Potassium Chloride 97.5 L Carbon Dioxide BUN 35 H Creatinine 6.1 H Glucose POC Glucose 107 H Calcium Phosphorus Magnesium Iron TIBC Total Creatine Kinase Troponin T NT-Pro-B Natriuret Pep Total Protein Albumin PTH Intact Urine WBC (Auto) Urine Creatinine 11/24/21 11/24/21 11/25/21 11:21 18:04 17:47 WBC RBC Hgb Hct MCH MCHC RDW Lymph % (Auto) [place] % (Auto) Lymph # (Auto) [place] # (Auto) Seg Neutrophils % Seg Neuts % (Manual) Lymphocytes % (Manual) Seg Neutrophils # Seg Neutrophils # Man Lymphocytes # (Manual) ABG pH ABG pO2 ABG HCO3 ABG O2 Saturation ABG Base Excess ABG Hemoglobin Sodium Potassium Chloride Carbon Dioxide BUN Creatinine Glucose POC Glucose 107 H 107 H 124 H Calcium Phosphorus Magnesium Iron TIBC Total Creatine Kinase Troponin T NT-Pro-B Natriuret Pep Total Protein Albumin PTH Intact Urine WBC (Auto) Urine Creatinine 11/25/21 11/25/21 11/25/21 23:40 23:50 23:50 WBC 14.1 H RBC 2.57 L Hgb 7.3 L Hct 22.7 L MCH MCHC RDW 17.9 H Lymph % (Auto) [place] % (Auto) Lymph # (Auto) [place] # (Auto) Seg Neutrophils % Seg Neuts % (Manual) Lymphocytes % (Manual) Seg Neutrophils # Seg Neutrophils # Man Lymphocytes # (Manual) ABG pH ABG pO2 ABG HCO3 ABG O2 Saturation ABG Base Excess ABG Hemoglobin Sodium Potassium Chloride Carbon Dioxide BUN 34 H Creatinine 5.5 H Glucose 117 H POC Glucose 106 H Calcium Phosphorus Magnesium 2.50 H Iron TIBC Total Creatine Kinase Troponin T NT-Pro-B Natriuret Pep Total Protein Albumin PTH Intact Urine WBC (Auto) Urine Creatinine 11/26/21 11/26/21 11/26/21 10:41 10:46 17:28 WBC 12.5 H RBC 2.69 L Hgb 7.2 L Hct 23.8 L MCH 27 L MCHC 30 L RDW 17.7 H Lymph % (Auto) [place] % (Auto) Lymph # (Auto) [place] # (Auto) Seg Neutrophils % Seg Neuts % (Manual) Lymphocytes % (Manual) Seg Neutrophils # Seg Neutrophils # Man Lymphocytes # (Manual) ABG pH ABG pO2 ABG HCO3 ABG O2 Saturation ABG Base Excess ABG Hemoglobin Sodium Potassium Chloride Carbon Dioxide BUN 42 H Creatinine 6.6 H Glucose 106 H POC Glucose 112 H Calcium Phosphorus Magnesium Iron TIBC Total Creatine Kinase Troponin T NT-Pro-B Natriuret Pep Total Protein Albumin PTH Intact Urine WBC (Auto) Urine Creatinine 11/27/21 11/27/21 11/27/21 04:45 04:45 17:05 WBC 12.4 H RBC 2.75 L Hgb 7.4 L Hct 24.3 L MCH 27 L MCHC 30 L RDW 18.0 H Lymph % (Auto) [place] % (Auto) Lymph # (Auto) [place] # (Auto) Seg Neutrophils % Seg Neuts % (Manual) Lymphocytes % (Manual) Seg Neutrophils # Seg Neutrophils # Man Lymphocytes # (Manual) ABG pH ABG pO2 ABG HCO3 ABG O2 Saturation ABG Base Excess ABG Hemoglobin Sodium Potassium Chloride Carbon Dioxide BUN 32 H Creatinine 5.0 H Glucose 112 H POC Glucose 110 H Calcium Phosphorus Magnesium Iron TIBC Total Creatine Kinase Troponin T NT-Pro-B Natriuret Pep Total Protein Albumin PTH Intact Urine WBC (Auto) Urine Creatinine 11/28/21 11/28/21 11/28/21 04:30 04:30 17:43 WBC 11.2 H RBC 2.71 L Hgb 7.4 L Hct 23.9 L MCH 27 L MCHC 31 L RDW 18.0 H Lymph % (Auto) [place] % (Auto) Lymph # (Auto) [place] # (Auto) Seg Neutrophils % Seg Neuts % (Manual) Lymphocytes % (Manual) Seg Neutrophils # Seg Neutrophils # Man Lymphocytes # (Manual) ABG pH ABG pO2 ABG HCO3 ABG O2 Saturation ABG Base Excess ABG Hemoglobin Sodium 136 L Potassium Chloride 95.4 L Carbon Dioxide BUN 49 H Creatinine 6.6 H Glucose POC Glucose 107 H Calcium Phosphorus Magnesium Iron TIBC Total Creatine Kinase Troponin T NT-Pro-B Natriuret Pep Total Protein Albumin PTH Intact Urine WBC (Auto) Urine Creatinine 11/29/21 11/29/21 11/29/21 05:25 05:25 11:37 WBC RBC 2.76 L Hgb 7.6 L Hct 24.3 L MCH 27 L MCHC 31 L RDW 17.7 H Lymph % (Auto) [place] % (Auto) Lymph # (Auto) [place] # (Auto) Seg Neutrophils % Seg Neuts % (Manual) Lymphocytes % (Manual) Seg Neutrophils # Seg Neutrophils # Man Lymphocytes # (Manual) ABG pH ABG pO2 ABG HCO3 ABG O2 Saturation ABG Base Excess ABG Hemoglobin Sodium 136 L Potassium Chloride 96.5 L Carbon Dioxide BUN 40 H Creatinine 6.1 H Glucose 110 H POC Glucose 111 H Calcium Phosphorus Magnesium Iron TIBC Total Creatine Kinase Troponin T NT-Pro-B Natriuret Pep Total Protein Albumin PTH Intact Urine WBC (Auto) Urine Creatinine 11/30/21 11/30/21 12/01/21 04:00 23:26 05:37 WBC RBC Hgb Hct MCH MCHC RDW Lymph % (Auto) [place] % (Auto) Lymph # (Auto) [place] # (Auto) Seg Neutrophils % Seg Neuts % (Manual) Lymphocytes % (Manual) Seg Neutrophils # Seg Neutrophils # Man Lymphocytes # (Manual) ABG pH ABG pO2 ABG HCO3 ABG O2 Saturation ABG Base Excess ABG Hemoglobin Sodium 133 L Potassium Chloride 92.1 L Carbon Dioxide BUN 62 H Creatinine 7.7 H Glucose POC Glucose 128 H 122 H Calcium Phosphorus Magnesium Iron TIBC Total Creatine Kinase Troponin T NT-Pro-B Natriuret Pep Total Protein Albumin PTH Intact Urine WBC (Auto) Urine Creatinine 12/01/21 Unknown WBC RBC Hgb Hct MCH MCHC RDW Lymph % (Auto) [place] % (Auto) Lymph # (Auto) [place] # (Auto) Seg Neutrophils % Seg Neuts % (Manual) Lymphocytes % (Manual) Seg Neutrophils # Seg Neutrophils # Man Lymphocytes # (Manual) ABG pH ABG pO2 ABG HCO3 ABG O2 Saturation ABG Base Excess ABG Hemoglobin Sodium 135 L Potassium Chloride 94.1 L Carbon Dioxide BUN 52 H Creatinine 6.7 H Glucose 119 H POC Glucose Calcium Phosphorus Magnesium Iron TIBC Total Creatine Kinase Troponin T NT-Pro-B Natriuret Pep Total Protein Albumin PTH Intact Urine WBC (Auto) Urine Creatinine Allied health notes reviewed: nursing
--- NOTE | 2021-12-01 11:00 | Discharge Summary ---
Providers - Providers Date of Admission: 11/11/21 22:40 Date of discharge: 12/01/21 Attending physician: AMADO YODER MD 11/11/21 22:40 Consult to Dietitian/Nutrition [CONS] Routine Physician Instructions: Reason For Exam: Reason for Consult: Diet education Consult to Physician [CONS] Routine Comment: Dr. Shafer spoke with Dr. Umana @ [id number] Consulting Provider: JAKE UMANA Physician Instructions: Reason For Exam: Acute respiratory failure 11/11/21 23:03 Consult to Physician [CONS] Routine Comment: Dr. Shafer spoke with Dr. Vargas @ [id number] Consulting Provider: CHUY VARGAS Physician Instructions: Reason For Exam: arf 11/11/21 23:19 Consult to Physician [CONS] Routine Comment: Consulting Provider: YVONNE ALLAN Physician Instructions: Reason For Exam: Elevated troponin 11/12/21 09:51 Consult to Dietitian/Nutrition [CONS] Routine Physician Instructions: Reason For Exam: Reason for Consult: Write/Manage Tube Feeding 11/16/21 08:31 Consult to Physician [CONS] Routine Comment: called office/ mehrdad Consulting Provider: CYNDI PACHECO Physician Instructions: Reason For Exam: Trach/Peg eval 11/30/21 13:23 Consult to Interventional Radiology [CONS] Routine Consulting Provider: KADEN BALLARD Reason For Exam: Perm-catheter placement prior to discharge Place consult to:: kaden foote Notified:: yes Phone number called:: [phone] Was contact made?: Yes Time called:: 16:35 Comment:: spoke with answering service 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 Iglesias catheter was also placed. Antibiotics discontinued. proBNP pending. Decrease in FiO2 related to ABG. Echocardiogram pending. Patient given X1 for potassium 5.5 and nutrition consulted for tube feedings. updated brother at bedside 11/13: Propofol letter for sedation as patient seems restless on the ventilator only on fentanyl. HD scheduled for today. [facility] plans to conduct PSV possibly Sunday. 11/14: Tolerated HD overnight, 2L removed. Plan for possible HD again today. Patient is tolerating PST today on low dose fentanyl, plan for possible extubation tomorrow. 11/15: SANA overnight. Remains on the vent and on low dose sedation. Continue to tolerate HD. Plan for PST and possible extubation today. 11/16: Failed extubation yesterday and had to be emergently reintubated due to hypoxia and decreased LOC. Patient is stable on the vent this am, remains on low dose sedation, while awake and following commands. CCM recommendations noted due to patient's body habitus, he might need to be trach/Peg. CT neck was canceled due to weight limit. General Surgery consulted for Trach/PEG eval. 11/17: Remains on the vent, sedation increased overnight due to increased agitation and low dose pressors were initiated. Patient tolerated HD yesterday, plan for HD again today. Plan for possible trach/PEG vs possible transfer for ENT eval for trach/PEG. Awaiting on General surgery recommendations. 11/18: SANA overnight. D/w [facility] plan for US thyroid biopsy per General Surgery recommendation due thyroid nodule to r/o malignancy. Patient remains on low dose levophed gtt. Continue HD per Nephro. 11/19: Periods of low SPO2 overnight which resolved with deep suctioning. Patient remains on low dose vent setting, no respiratory distress noted this am. Patient remains on sedation and low dose levophed, MAP in the 70s, continue to wean pressors for MAP above 65. Pending US biopsy of the thyroid for possible trach per General Surgery. 11/20: SANA overnight. Remains on low dose pressors, continue to wean for MAP above 65. Pending US guided thyroid biopsy for possible trach/PEG per General Surgery. 11/21: Trach/PEG postponed till tomorrow. Neurology consult completed who recommended MRI brain and EEG. NGT will be replaced. Will give mag citrate once placed has patient has not had a BM since 11/17 11/22: Patient had a trach/PEG placed today. Will remain n.p.o. till tomorrow morning. On palpation right wrist may have dislocation, x-ray ordered. Confirmed dislocation. Will order sling. 11/23: Attempted hemodialysis today at bedside however unable to record blood pressure and he was given albumin and and started on Levophed. Levophed was still maxed at 30 mcg and vasopressin was added. 1 dose of hydrocortisone 100 mg did not yield results. Attempts to place a line was unsuccessful however blood pressure reading was in the 180s and hemodialysis was resumed. Shortly after resumption patient became hypotensive and was again maxed on Levophed. Hemodialysis was abandoned. 11/24: Haldol scheduled for possibly delirium per CCM, RN to attempt to decrease sedation as tolerated. RT asked to place on SPT. 11/25: CAM ICU negative, started on Levophed overnight, added midodrine. HD orders noted 11/26: HD planned today. Patient seems to be comfortable. RT placed on PSV. 11/28: Remains stable on the vent, tolerated PST over the weekend. Continue daily PST. qHs Seroquel added to promote rest and maintain sleep-wake cycle. Plan for HD today per Nephro. Possible LTAC placement, case management to arrange. 11/29: Hypotensive during HD overnight, required short duration of levophed gtt. Pressors are off this am, midodrine increased to 15mg TID. Awaiting LTAC placement, case management to arrange. 11/30: SANA overnight, remains stable on the vent. Continue daily PST as tolerated. Plan for HD today. Possible transfer to LTAC tomorrow. 12/01: Transfer to LTAC today. Per Case management, permacath can be done at the LTAC facility. Assessment and Plan Neuro: Acute metabolic encephalopathy -Remains on the vent, drowsy this am -Restlessness and Insomnia -qHs Seroquel added -Monitor Qtc -Avoid delirium -Reorientation as needed -Maintain sleep-wake cycle -aspiration/seizure precautions -As needed analgesia for CPOT greater than 3 -Neurology on consult Cardiac: h/o HTN, elevated troponins -Cardiology consulted, appreciate recommendations -S/p vasopressor support -Now on Midodrine -Echocardiogram shows ejection fraction greater than 70 -Blood pressure monitoring per protocol -Maintain MAP above 65 Respiratory: Acute hypoxic respiratory failure, ? [facility] -[facility] consulted, appreciate recommendations -Intubated in the emergency department on 11/04 -11/15 Failed extubation had to be emergently reintubated due to hypoxia and decreased LOC -4/5 s/p Trach/PEG placement -Vent settings: PRVC-30%,6,20,550 -VAP bundle addressed -Aspiration precaution HOB above 30 -Daily PSV trials as tolerated -PRN ABG and CXR per [facility] -Continue SPO2 monitoring for SPO2 goal above 92% GI: Protin calorie malnutrition, Morbid obesity -4/5 s/p PEGTube placement -Continue enteral nutrition -NTR consulted for tube feedings -BR: Colace : Acute Renal Failure -FeNa 1.04% indicating either ATN or prerenal state -Nephrology consulted, appreciate recommendations -Vas-Cath placed at HD initiated 11/12 -HD per nephrology -Strict intake and output -Renally dose medications -Avoid nephrotoxic medications -Daily weights -Renal ultrasound pending -Trend BMP -Repeat magnesium Endo:Thyroid Nodule h/o DM -Head/neck ultrasound showed left thyroid lobe nodule is a T1 RADS category 3 lesion, current recommendation is follow-up in 1 year -Reexamination by Dr. Gutierrez showed nodule approximately 2.3 cm in maximum dimension. Rec. Follow-up at 1, 3, 5-year intervals to be appropriate -Hemoglobin A1c 5.7 -SSI -Accu-Cheks q. 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 ESRD on HD Time spent for discharge: 35 Core Measure Documentation - Palliative Care Palliative Care/ Comfort Measures: Not Applicable - Core Measures Any of the following diagnoses?: none Exam - Physical Exam Narrative exam: General appearance: Present: no acute distress, obese, other (tracheostomy, on the vent) - EENT Eyes: Present: PERRL ENT: hearing intact, clear oral mucosa - Neck Neck: Present: normal ROM - Respiratory Respiratory effort: normal Respiratory: bilateral: rhonchi - Cardiovascular Rhythm: regular Heart Sounds: Present: S1 & S2 - Extremities Extremities: no ischemia, pulses intact, pulses symmetrical Extremity abnormal: edema - Peripheral Assessment Generalized Edema Type: Non-pitting Edema Degree: 2+ Capillary Refill: < 3 seconds Skin Temperature: Warm Peripheral Pulses: within normal limits - Abdominal General gastrointestinal: soft, non-distended, normal bowel sounds - Integumentary Integumentary: Present: warm, dry - Psychiatric Psychiatric: appropriate mood/affect, cooperative, other (tracheostomy, on the vent) - Neurologic Neurologic: moves all extremities (Except Right Wrist due to chronic fracture), other (tracheostomy, on the vent) - Allied Health Allied health notes reviewed: nursing, case management - Constitutional Vitals: Temp Pulse Resp BP Pulse Ox 99.4 F 129 H 24 109/57 99 12/01/21 08:00 12/01/21 08:21 12/01/21 08:21 12/01/21 08:21 12/01/21 08:21 Plan Activity: advance as tolerated Diet: other (Enteral Nutrition via PEG-Tube) Wound: open to air Special Instructions: physical therapy, occupational therapy Follow up with: SILVANO BENDER MD [Primary Care Provider] - 7 Days
--- NOTE | 2021-12-01 11:07 | Progress Note ---
Assessment and Plan Assessment Acute respiratory failure Pneumonia Hypoxia KD (acute kidney injury) on top of CKD Hyperkalemia Diabetes Elevated troponin Hypertension Obesity Acidosis Plan -Renal labs reviewed. Serum creatinine 6.7 today, yesterday's was 7.7 -Received hemodialysis yesterday for UF and clearance via vasc cath -Consulted IR on 11/30/21 for perm-catheter placement prior to discharge -Renal ultrasound- Left kidney no visualized. No hydronephrosis to right kidney -Renally dose all medications -Obtain daily weights -Monitor I/O's daily -Assess dialysis needs daily -Plan to be discharge to [facility] once bed available -Plan of care reviewed by Dr. Ya Subjective Date of service: 12/01/21 Principal diagnosis: Acute respiratory failure, Interval history: Awake. Has PEG tube and Trach. No family at bedside. Objective - Vital Signs Vital signs: Vital Signs - 12hr 12/01/21 12/01/21 12/01/21 00:00 00:56 01:01 Temperature 98.3 F Pulse Rate 86 75 Pulse Rate [ 81 From Monitor] Pulse Rate [ 92 H None] Respiratory 19 20 Rate Blood Pressure 129/66 129/66 O2 Sat by Pulse 99 98 96 Oximetry O2 Sat by Pulse Oximetry [ Assessment] 12/01/21 12/01/21 12/01/21 01:09 01:19 01:31 Temperature Pulse Rate 84 85 Pulse Rate [ From Monitor] Pulse Rate [ None] Respiratory 20 20 Rate Blood Pressure 123/84 O2 Sat by Pulse 99 99 Oximetry O2 Sat by Pulse 99 Oximetry [ Assessment] 12/01/21 12/01/21 12/01/21 02:01 02:31 03:00 Temperature Pulse Rate 85 92 H 97 H Pulse Rate [ From Monitor] Pulse Rate [ None] Respiratory 17 20 21 Rate Blood Pressure 136/86 O2 Sat by Pulse 99 99 98 Oximetry O2 Sat by Pulse Oximetry [ Assessment] 12/01/21 12/01/21 12/01/21 03:30 04:00 04:27 Temperature 98.4 F Pulse Rate 91 H 86 94 H Pulse Rate [ 81 From Monitor] Pulse Rate [ None] Respiratory 20 20 Rate Blood Pressure 130/85 154/79 140/73 O2 Sat by Pulse 99 99 99 Oximetry O2 Sat by Pulse Oximetry [ Assessment] 12/01/21 12/01/21 12/01/21 04:31 05:00 05:30 Temperature Pulse Rate 96 H 119 H 91 H Pulse Rate [ From Monitor] Pulse Rate [ None] Respiratory 20 16 19 Rate Blood Pressure 80/55 93/53 145/86 O2 Sat by Pulse 99 98 100 Oximetry O2 Sat by Pulse Oximetry [ Assessment] 12/01/21 12/01/21 12/01/21 06:00 06:30 07:00 Temperature Pulse Rate 123 H 129 H 97 H Pulse Rate [ From Monitor] Pulse Rate [ None] Respiratory 17 38 H 23 Rate Blood Pressure 139/85 137/84 120/73 O2 Sat by Pulse 99 99 99 Oximetry O2 Sat by Pulse Oximetry [ Assessment] 12/01/21 12/01/21 12/01/21 07:30 08:00 08:01 Temperature 99.4 F Pulse Rate 127 H 129 H 127 H Pulse Rate [ From Monitor] Pulse Rate [ None] Respiratory 29 H 38 H 19 Rate Blood Pressure 116/55 102/63 102/63 O2 Sat by Pulse 99 99 99 Oximetry O2 Sat by Pulse 99 Oximetry [ Assessment] 12/01/21 08:21 Temperature Pulse Rate 129 H Pulse Rate [ From Monitor] Pulse Rate [ None] Respiratory 24 Rate Blood Pressure 109/57 O2 Sat by Pulse 99 Oximetry O2 Sat by Pulse Oximetry [ Assessment] - General Appearance General appearance: obese, other (No acute distress) EENT: ATNC Neck: no JVD, other (has trach) Respiratory: Present: Decreased Breath Sounds, Other (has trach) Cardiology: S1S2 Gastrointestinal: normoactive bowel sounds Integumentary: warm and dry Neurologic: alert and oriented x3 Musculoskeletal: joint swelling - Lab 11/29/21 05:25 12/01/21 Unknown Most recent lab results ABG pH 7.467 pH Units (7.350-7.450) H 11/18/21 04:35 ABG pCO2 37.1 mm Hg 11/18/21 04:35 ABG pO2 110.0 mm Hg (80.0-90.0) H 11/18/21 04:35 ABG HCO3 26.2 mmol/L (20.0-26.0) H 11/18/21 04:35 ABG O2 Saturation 98.1 % (95.0-99.0) 11/18/21 04:35 Calcium 8.9 mg/dL (8.4-10.2) 12/01/21 Unknown Phosphorus 4.50 mg/dL (2.5-4.5) D 11/30/21 04:00 Magnesium 2.10 mg/dL (1.7-2.3) 11/30/21 04:00 Urine Creatinine 189.3 mg/dL (0.1-20.0) H 11/12/21 02:20 Urine Sodium 30 mmol/L 11/12/21 02:20 Medications & Allergies - Medications Allergies/Adverse Reactions: Allergies No Known Allergies Allergy (Verified 11/11/21 20:58) Home Medications: Home Medications Medication Instructions Recorded Confirmed Last Taken Type Aspirin 325 mg FEEDTUBE QDAY tablet 12/01/21 Unknown Rx AtorvaSTATin [Lipitor] 40 mg FEEDTUBE QHS tablet 12/01/21 Unknown Rx Famotidine [Pepcid] 20 mg FEEDTUBE QDAY tablet 12/01/21 Unknown Rx Lispro Insulin [HumaLOG] 0 unit SUB-Q Q6HR units 12/01/21 Unknown Rx Midodrine [Proamatine] 15 mg PO TID@0800,1200,1600 tablet 12/01/21 Unknown Rx QUEtiapine [SEROquel] 50 mg FEEDTUBE QHS tablet 12/01/21 Unknown Rx Sennosides Tab [Senokot] 8.6 mg FEEDTUBE Q12H tablet 12/01/21 Unknown Rx polyethylene glycoL 3350 [Miralax 17 gm PO QDAY PRN powd.pack 12/01/21 Unknown Rx 3350] Active Medications: Generic Name Dose Route Start Last Admin Trade Name Freq PRN Reason Stop Dose Admin Acetaminophen 650 mg 11/11/21 22:40 Acetaminophen 325 Mg Tab PO Q4H PRN Pain MILD(1-3)/Fever >100.5/SOTO Albumin Human 12.5 gm 11/23/21 10:00 11/30/21 18:45 Albumin Human 25% (12.5 Gm/50 Ml) Inj IV 12.5 gm LONG PRN Administration Hypotension Albuterol 2.5 mg 11/11/21 22:40 Albuterol 2.5 Mg/3 Ml Nebu IH Q3HRT PRN Shortness Of Breath Aspirin 325 mg 11/17/21 10:00 12/01/21 09:56 Aspirin 325 Mg Tab FEEDTUBE 325 mg QDAY BAO Administration Atorvastatin Calcium 40 mg 11/17/21 22:00 11/30/21 21:08 Atorvastatin 40 Mg Tab FEEDTUBE 40 mg QHS BAO Administration Dextrose 50 ml 11/18/21 13:00 Dextrose 50% In Water (25gm) 50 Ml Syringe IV Q30MIN PRN Hypoglycemia Protocol Famotidine 20 mg 11/17/21 10:00 12/01/21 09:56 Famotidine 20 Mg Tab FEEDTUBE 20 mg QDAY BAO Administration Hydrophilic Ointment 1 applic 11/11/21 20:56 Lip Therapy Vaseline TP Q2HR PRN Dry Lips Sodium Chloride 100 mls @ 999 mls/hr 11/26/21 12:30 Nacl 0.9% IV LONG PRN Hypotension NORepinephrine/NS 8 MG-250 ML 8 mg in 250 mls @ 3.75 mls/hr 11/29/21 11:00 12/01/21 09:56 Norepinephrine/Ns 8 Mg-250 Ml (Double Conc) IV 0 mcg/min TITRATE BAO 0 mls/hr Titration Protocol 2 MCG/MIN Insulin Human Lispro 0 unit 11/12/21 00:00 12/01/21 00:00 Insulin Lispro 100 Unit/Ml SUB-Q Not Given Q6HR BAO Protocol Lorazepam 2 mg 11/21/21 11:00 12/01/21 05:16 Lorazepam 2 Mg/Ml Vial IV 2 mg Q4H PRN Administration Agitation Midodrine 15 mg 11/29/21 12:00 12/01/21 08:14 Midodrine 5 Mg Tab PO 15 mg TID@0800,1200,1600 BAO Administration Multi-Ingred Cream/Lotion/Oil/Oint 1 applic 11/11/21 20:56 Mineral Oil/Petrolatum, White Ophth Oint 3.5 Gm OU Q4HR PRN Dry Eye(s) Ondansetron HCl 4 mg 11/11/21 22:40 Ondansetron 4 Mg/2 Ml Inj IV Q8H PRN Nausea And Vomiting Polyethylene Glycol 17 gm 11/27/21 10:00 Polyethylene Glycol 3350 17 Gm Powder PO QDAY PRN Constip unreliev by MOM/or NPO Quetiapine Fumarate 50 mg 11/28/21 22:00 11/30/21 21:08 Quetiapine 25 Mg Tab FEEDTUBE 50 mg QHS BAO Administration Senna 8.6 mg 11/17/21 10:00 04/14/22 09:56 Sennosides 8.6 Mg Tab FEEDTUBE 8.6 mg Q12H BAO Administration Sodium Chloride 10 ml 11/12/21 10:00 11/30/21 21:08 Sodium Chloride 0.9% 10 Ml Flush Syringe IV 10 ml BID BAO Administration Sodium Chloride 10 ml 11/11/21 22:40 Sodium Chloride 0.9% 10 Ml Flush Syringe IV PRN PRN LINE FLUSH
[2021-12-01 11:47] LABS: ABG Base Excess 0.9 mmol/L (-2.0-3.0); ABG HCO3 26.4 mmol/L (20.0-26.0); ABG Methemoglobin 0.5 % (0.0-1.5); ABG Oxygen Saturation 96.8 % (95.0-99.0); ABG PCO2 46.8 mm Hg; ABG PH 7.369 pH Units (7.350-7.450); ABG PO2 87.4 mm Hg (80.0-90.0)
[2021-12-01] MEDS ORDERED: LIDOCAINE (1%) 10 MG/1 ML VIAL 20 ML MDV ONE (14:49)
[2021-12-01] MEDS ORDERED: LIDOCAINE (1%) 10 MG/1 ML VIAL 20 ML MDV IJ**NOT IV ONE (15:00)
--- NOTE | 2021-12-01 16:56 | Progress Note ---
<RUFUS ALVAREZ - Last Filed: 12/01/21 16:50> Assessment and Plan Assessment and plan: This is a 56-year-old male with DM, HTN, obesity, currently bedbound and past intubations admitted with acute hypoxic respiratory failure and acute renal failure Hospital course to date: 11/12: Overnight patient received a dialysis catheter and was initiated on dialysis. Iglesias catheter was also placed. Antibiotics discontinued. proBNP pending. Decrease in FiO2 related to ABG. Echocardiogram pending. Patient given X1 for potassium 5.5 and nutrition consulted for tube feedings. updated brother at bedside 11/13: Propofol letter for sedation as patient seems restless on the ventilator only on fentanyl. HD scheduled for today. [facility] plans to conduct PSV possibly Sunday. 11/14: Tolerated HD overnight, 2L removed. Plan for possible HD again today. Patient is tolerating PST today on low dose fentanyl, plan for possible extubation tomorrow. 11/15: SANA overnight. Remains on the vent and on low dose sedation. Continue to tolerate HD. Plan for PST and possible extubation today. 11/16: Failed extubation yesterday and had to be emergently reintubated due to hypoxia and decreased LOC. Patient is stable on the vent this am, remains on low dose sedation, while awake and following commands. CCM recommendations noted due to patient's body habitus, he might need to be trach/Peg. CT neck was canceled due to weight limit. General Surgery consulted for Trach/PEG eval. 11/17: Remains on the vent, sedation increased overnight due to increased agitation and low dose pressors were initiated. Patient tolerated HD yesterday, plan for HD again today. Plan for possible trach/PEG vs possible transfer for ENT eval for trach/PEG. Awaiting on General surgery recommendations. 11/18: SANA overnight. D/w CCM plan for US thyroid biopsy per General Surgery recommendation due thyroid nodule to r/o malignancy. Patient remains on low dose levophed gtt. Continue HD per Nephro. 11/19: Periods of low SPO2 overnight which resolved with deep suctioning. Patient remains on low dose vent setting, no respiratory distress noted this am. Patient remains on sedation and low dose levophed, MAP in the 70s, continue to wean pressors for MAP above 65. Pending US biopsy of the thyroid for possible trach per General Surgery. 4/3: SANA overnight. Remains on low dose pressors, continue to wean for MAP above 65. Pending US guided thyroid biopsy for possible trach/PEG per General Surgery. 11/21: Trach/PEG postponed till tomorrow. Neurology consult completed who recommended MRI brain and EEG. NGT will be replaced. Will give mag citrate once placed has patient has not had a BM since 11/17 11/22: Patient had a trach/PEG placed today. Will remain n.p.o. till tomorrow morning. On palpation right wrist may have dislocation, x-ray ordered. Confirmed dislocation. Will order sling. 11/23: Attempted hemodialysis today at bedside however unable to record blood pressure and he was given albumin and and started on Levophed. Levophed was still maxed at 30 mcg and vasopressin was added. 1 dose of hydrocortisone 100 mg did not yield results. Attempts to place a line was unsuccessful however blood pressure reading was in the 180s and hemodialysis was resumed. Shortly after resumption patient became hypotensive and was again maxed on Levophed. Hemodialysis was abandoned. 11/24: Haldol scheduled for possibly delirium per CCM, RN to attempt to decrease sedation as tolerated. RT asked to place on SPT. 11/25: CAM ICU negative, started on Levophed overnight, added midodrine. HD orders noted 11/26: HD planned today. Patient seems to be comfortable. RT placed on PSV. 11/28: Remains stable on the vent, tolerated PST over the weekend. Continue daily PST. qHs Seroquel added to promote rest and maintain sleep-wake cycle. Plan for HD today per Nephro. Possible LTAC placement, case management to arrange. 11/29: Hypotensive during HD overnight, required short duration of levophed gtt. Pressors are off this am, midodrine increased to 15mg TID. Awaiting LTAC placement, case management to arrange. 11/30: SANA overnight, remains stable on the vent. Continue daily PST as tolerated. Plan for HD today. Possible transfer to LTAC tomorrow. 12/01: Hypotensive again yesterday during HD required pressors. Levophed gtt off this am, VSS. Patient was acceptable and ready for transfer to LTAC, however transfer is hold today due to transportation. Possible transfer to LTAC tomorrow. Assessment and Plan Neuro: Acute metabolic encephalopathy -Remains on the vent, drowsy this am -Restlessness and Insomnia -qHs Seroquel added -Monitor Qtc -Avoid delirium -Reorientation as needed -Maintain sleep-wake cycle -aspiration/seizure precautions -As needed analgesia for CPOT greater than 3 -Neurology on consult Cardiac: h/o HTN, elevated troponins -Cardiology consulted, appreciate recommendations -S/p vasopressor support -Now on Midodrine -Echocardiogram shows ejection fraction greater than 70 -Blood pressure monitoring per protocol -Maintain MAP above 65 Respiratory: Acute hypoxic respiratory failure, ? OHS -CCM consulted, appreciate recommendations -Intubated in the emergency department on 11/04 -11/15 Failed extubation had to be emergently reintubated due to hypoxia and decreased LOC -4/5 s/p Trach/PEG placement -Vent settings:CPAP-30%,6 PS-12 -VAP bundle addressed -Aspiration precaution HOB above 30 -Daily PSV trials as tolerated -PRN ABG and CXR per [facility] [place] [facility] -Continue SPO2 monitoring for SPO2 goal above 92% GI: Protin calorie malnutrition, Morbid obesity -4/5 s/p PEGTube placement -Continue enteral nutrition -NTR consulted for tube feedings -BR: Colace : Acute Renal Failure -FeNa 1.04% indicating either ATN or prerenal state -Nephrology consulted, appreciate recommendations -Vas-Cath placed at HD initiated 11/12 -HD per nephrology -Strict intake and output -Renally dose medications -Avoid nephrotoxic medications -Daily weights -Renal ultrasound pending -Trend BMP -Repeat magnesium Endo:Thyroid Nodule h/o DM -Head/neck ultrasound showed left thyroid lobe nodule is a T1 RADS category 3 lesion, current recommendation is follow-up in 1 year -Reexamination by Dr. Gutierrez showed nodule approximately 2.3 cm in maximum dimension. Rec. Follow-up at 1, 3, 5-year intervals to be appropriate -Hemoglobin A1c 5.7 -SSI -Accu-Cheks q. 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 The aggregate critical care time was [60] minutes. This time is in addition to time spent performing reported procedures but includes the following: [x] Data Review and interpretation [x] Patient assessment and monitoring of vital signs [x] Documentation [x] Medication orders and management Disposition Plan: ICU Total Time Spent with Patient (Minutes): 60 History Interval history: Patient seen and examined at the bedside. Remains stable on the vent, VSS. Required pressors overnight during and after HD overnight due to hypotension. Levophed is off this am. Hospitalist Physical - Physical exam Narrative exam: General appearance: Present: no acute distress, obese, other (tracheostomy, on the vent) - EENT Eyes: Present: PERRL ENT: hearing intact, clear oral mucosa - Neck Neck: Present: normal ROM - Respiratory Respiratory effort: normal Respiratory: bilateral: rhonchi - Cardiovascular Rhythm: regular Heart Sounds: Present: S1 & S2 - Extremities Extremities: no ischemia, pulses intact, pulses symmetrical Extremity abnormal: edema - Peripheral Assessment Generalized Edema Type: Non-pitting Edema Degree: 2+ Capillary Refill: < 3 seconds Skin Temperature: Warm Peripheral Pulses: within normal limits - Abdominal General gastrointestinal: soft, non-distended, normal bowel sounds - Integumentary Integumentary: Present: warm, dry - Psychiatric Psychiatric: appropriate mood/affect, cooperative, other (tracheostomy, on the vent) - Neurologic Neurologic: moves all extremities (Except Right Wrist due to chronic fracture), other (tracheostomy, on the vent) - Allied Health Allied health notes reviewed: nursing, case management - Constitutional Vitals: Temp Pulse Resp BP Pulse Ox 98.4 F 90 29 H 102/52 100 12/01/21 16:00 12/01/21 15:30 12/01/21 15:30 12/01/21 15:30 12/01/21 15:30 HEART Score - HEART Score Troponin: Troponin T 0.294 ng/mL (0.00-0.029) H* 11/22/21 08:30 Results - Labs CBC & Chem 7: 11/29/21 05:25 12/01/21 Unknown Labs: Laboratory Last Values WBC 9.4 K/mm3 (4.5-11.0) 11/29/21 05:25 RBC 2.76 M/mm3 (3.65-5.03) L 11/29/21 05:25 Hgb 7.6 gm/dl (11.8-15.2) L 11/29/21 05:25 Hct 24.3 % (35.5-45.6) L 11/29/21 05:25 MCV 88 fl (84-94) 11/29/21 05:25 MCH 27 pg (28-32) L 11/29/21 05:25 MCHC 31 % (32-34) L 11/29/21 05:25 RDW 17.7 % (13.2-15.2) H 11/29/21 05:25 Plt Count 302 K/mm3 (140-440) 11/29/21 05:25 Lymph % (Auto) 5.7 % (13.4-35.0) L 11/22/21 08:30 Falls % (Auto) 13.0 % (0.0-7.3) H 11/22/21 08:30 Eos % (Auto) 1.4 % (0.0-4.3) 11/22/21 08:30 Baso % (Auto) 0.4 % (0.0-1.8) 11/22/21 08:30 Lymph # (Auto) 0.8 K/mm3 (1.2-5.4) L 11/22/21 08:30 Falls # (Auto) 1.9 K/mm3 (0.0-0.8) H 11/22/21 08:30 Eos # (Auto) 0.2 K/mm3 (0.0-0.4) 11/22/21 08:30 Baso # (Auto) 0.1 K/mm3 (0.0-0.1) 11/22/21 08:30 Add Manual Diff Complete 11/12/21 06:55 Total Counted 100 11/12/21 06:55 Seg Neutrophils % 79.5 % (40.0-70.0) H 11/22/21 08:30 Seg Neuts % (Manual) 89.0 % (40.0-70.0) H 11/12/21 06:55 Band Neutrophils % 5.0 % 11/12/21 06:55 Lymphocytes % (Manual) 0 % (13.4-35.0) L 11/12/21 06:55 Reactive Lymphs % (Man) 0 % 11/12/21 06:55 Monocytes % (Manual) 3.0 % (0.0-7.3) 11/12/21 06:55 Eosinophils % (Manual) 0 % (0.0-4.3) 11/12/21 06:55 Basophils % (Manual) 0 % (0.0-1.8) 11/12/21 06:55 Metamyelocytes % 3.0 % 11/12/21 06:55 Myelocytes % 0 % 11/12/21 06:55 Promyelocytes % 0 % 11/12/21 06:55 Blast Cells % 0 % 11/12/21 06:55 Nucleated RBC % Not Reportable 11/12/21 06:55 Seg Neutrophils # 11.8 K/mm3 (1.8-7.7) H 11/22/21 08:30 Seg Neutrophils # Man 18.2 K/mm3 (1.8-7.7) H 11/12/21 06:55 Band Neutrophils # 1.0 K/mm3 11/12/21 06:55 Lymphocytes # (Manual) 0.0 K/mm3 (1.2-5.4) L 11/12/21 06:55 Abs React Lymphs (Man) 0.0 K/mm3 11/12/21 06:55 Monocytes # (Manual) 0.6 K/mm3 (0.0-0.8) 11/12/21 06:55 Eosinophils # (Manual) 0.0 K/mm3 (0.0-0.4) 11/12/21 06:55 Basophils # (Manual) 0.0 K/mm3 (0.0-0.1) 11/12/21 06:55 Metamyelocytes # 0.6 K/mm3 11/12/21 06:55 Myelocytes # 0.0 K/mm3 11/12/21 06:55 Promyelocytes # 0.0 K/mm3 11/12/21 06:55 Blast Cells # 0.0 K/mm3 11/12/21 06:55 WBC Morphology Not Reportable 11/12/21 06:55 Hypersegmented Neuts Not Reportable 11/12/21 06:55 Hyposegmented Neuts Not Reportable 11/12/21 06:55 Hypogranular Neuts Not Reportable 11/12/21 06:55 Smudge Cells Not Reportable 11/12/21 06:55 Toxic Granulation 1+ 11/12/21 06:55 Toxic Vacuolation Not Reportable 11/12/21 06:55 Dohle Bodies Not Reportable 11/12/21 06:55 Pelger-Huet Anomaly Not Reportable 11/12/21 06:55 Lissa Rods Not Reportable 11/12/21 06:55 Platelet Estimate Consistent w auto 11/12/21 06:55 Clumped Platelets Not Reportable 11/12/21 06:55 Plt Clumps, EDTA Not Reportable 11/12/21 06:55 Large Platelets Not Reportable 11/12/21 06:55 Giant Platelets Not Reportable 11/12/21 06:55 Platelet Satelliting Not Reportable 11/12/21 06:55 Plt Morphology Comment Not Reportable 11/12/21 06:55 RBC Morphology Normal 11/12/21 06:55 Dimorphic RBCs Not Reportable 11/12/21 06:55 Polychromasia Not Reportable 11/12/21 06:55 Hypochromasia Not Reportable 11/12/21 06:55 Poikilocytosis Not Reportable 11/12/21 06:55 Anisocytosis Not Reportable 11/12/21 06:55 Microcytosis Not Reportable 11/12/21 06:55 Macrocytosis Not Reportable 11/12/21 06:55 Spherocytes Not Reportable 11/12/21 06:55 Pappenheimer Bodies Not Reportable 11/12/21 06:55 Sickle Cells Not Reportable 11/12/21 06:55 Target Cells Not Reportable 11/12/21 06:55 Tear Drop Cells Not Reportable 11/12/21 06:55 Ovalocytes Not Reportable 11/12/21 06:55 Helmet Cells Not Reportable 11/12/21 06:55 [place] Bodies Not Reportable 11/12/21 06:55 [place] Rings Not Reportable 11/12/21 06:55 Zuly Cells Not Reportable 11/12/21 06:55 Bite Cells Not Reportable 11/12/21 06:55 Crenated Cell Not Reportable 11/12/21 06:55 Elliptocytes Not Reportable 11/12/21 06:55 Acanthocytes (Spur) Not Reportable 11/12/21 06:55 Rouleaux Not Reportable 11/12/21 06:55 Hemoglobin C Crystals Not Reportable 11/12/21 06:55 Schistocytes Not Reportable 11/12/21 06:55 Malaria parasites Not Reportable 11/12/21 06:55 Nam Bodies Not Reportable 11/12/21 06:55 Hem Pathologist Commnt No 11/12/21 06:55 PT 14.4 Sec. (12.2-14.9) 11/22/21 04:00 INR 1.01 (0.87-1.13) 11/22/21 04:00 ABG pH 7.369 pH Units (7.350-7.450) 12/01/21 11:25 ABG pCO2 46.8 mm Hg 12/01/21 11:25 ABG pO2 87.4 mm Hg (80.0-90.0) 12/01/21 11:25 ABG HCO3 26.4 mmol/L (20.0-26.0) H 12/01/21 11:25 ABG O2 Saturation 96.8 % (95.0-99.0) 12/01/21 11:25 ABG O2 Content 9.6 (0.0-44) 12/01/21 11:25 ABG Base Excess 0.9 mmol/L (-2.0-3.0) 12/01/21 11:25 ABG Hemoglobin 7.1 gm/dl (14.0-18.0) L 12/01/21 11:25 ABG Carboxyhemoglobin 1.4 % (0.0-5.0) 12/01/21 11:25 ABG Methemoglobin 0.5 % (0.0-1.5) 12/01/21 11:25 Oxyhemoglobin 94.9 % (95.0-99.0) L 12/01/21 11:25 FiO2 30 % 12/01/21 11:25 Sodium 135 mmol/L (137-145) L 12/01/21 Unknown Potassium 4.3 mmol/L (3.6-5.0) 12/01/21 Unknown Chloride 94.1 mmol/L (98-107) L 12/01/21 Unknown Carbon Dioxide 24 mmol/L (22-30) 12/01/21 Unknown Anion Gap 21 mmol/L 12/01/21 Unknown BUN 52 mg/dL (9-20) H 12/01/21 Unknown Creatinine 6.7 mg/dL (0.8-1.3) H 12/01/21 Unknown Estimated GFR 10 ml/min 12/01/21 Unknown BUN/Creatinine Ratio 8 % 12/01/21 Unknown Glucose 119 mg/dL (75-100) H 12/01/21 Unknown POC Glucose 102 mg/dL (70-105) 12/01/21 11:35 Hemoglobin A1c 5.7 % (4-6) 11/12/21 06:55 Lactic Acid 0.90 mmol/L (0.7-2.0) 11/11/21 19:49 Calcium 8.9 mg/dL (8.4-10.2) 12/01/21 Unknown Phosphorus 4.50 mg/dL (2.5-4.5) D 11/30/21 04:00 Magnesium 2.10 mg/dL (1.7-2.3) 11/30/21 04:00 Iron 24 ug/dL (49-181) L 11/11/21 23:29 TIBC 157 mcg/dL (250-450) L 11/11/21 23:29 Total Bilirubin 0.40 mg/dL (0.1-1.2) 11/11/21 19:49 AST 10 units/L (5-40) 11/11/21 19:49 ALT 7 units/L (7-56) 11/11/21 19:49 Alkaline Phosphatase 111 units/L (35-129) 11/11/21 19:49 Total Creatine Kinase 534 units/L (55-170) H 11/22/21 08:30 CK-MB (CK-2) 2.4 ng/mL (0.0-4.0) 11/22/21 08:30 CK-MB (CK-2) Rel Index 0.4 (0-4) 11/22/21 08:30 Troponin T 0.294 ng/mL (0.00-0.029) H* 11/22/21 08:30 NT-Pro-B Natriuret Pep 3674 pg/mL (0-900) H 11/12/21 Unknown Total Protein 9.1 g/dL (6.3-8.2) H 11/11/21 19:49 Albumin 3.0 g/dL (3.9-5) L 11/11/21 19:49 Albumin/Globulin Ratio 0.5 % 11/11/21 19:49 Triglycerides 109 mg/dL (2-149) 11/21/21 04:00 Cholesterol 146 mg/dL (50-199) 11/11/21 19:49 LDL Cholesterol Direct 85 mg/dL (50-130) 11/11/21 19:49 HDL Cholesterol 43 mg/dL (40-59) 11/11/21 19:49 Cholesterol/HDL Ratio 3.39 % 11/11/21 19:49 PTH Intact 1174 pg/mL (15-65) H 11/11/21 23:29 Urine Color Yellow (Yellow) 11/12/21 02:20 Urine Turbidity Cloudy (Clear) 11/12/21 02:20 Urine pH 5.0 (5.0-7.0) 11/12/21 02:20 Ur Specific [place] 1.013 (1.003-1.030) 11/12/21 02:20 Urine Protein >500 mg/dL (Negative) 11/12/21 02:20 Urine Glucose (UA) Neg mg/dL (Negative) 11/12/21 02:20 Urine Ketones Neg mg/dL (Negative) 11/12/21 02:20 Urine Blood Sm (Negative) 11/12/21 02:20 Urine Nitrite Neg (Negative) 11/12/21 02:20 Urine Bilirubin Neg (Negative) 11/12/21 02:20 Urine Urobilinogen < 2.0 mg/dL (<2.0) 11/12/21 02:20 Ur Leukocyte Esterase Tr (Negative) 11/12/21 02:20 Urine WBC (Auto) 12.0 /HPF (0.0-6.0) H 11/12/21 02:20 Urine RBC (Auto) 4.0 /HPF (0.0-6.0) 11/12/21 02:20 U Epithel Cells (Auto) 9.0 /HPF (0-13.0) 11/12/21 02:20 Urine Bacteria (Auto) 2+ /HPF (Negative) 11/12/21 02:20 Urine Mucus Few /HPF 11/12/21 02:20 Urine Yeast (Budding) 3+ /HPF 11/12/21 02:20 Urine Eosinophils None seen (None Seen) 11/12/21 02:20 Urine Creatinine 189.3 mg/dL (0.1-20.0) H 11/12/21 02:20 Urine Sodium 30 mmol/L 11/12/21 02:20 Coronavirus (PCR) Negative (Negative) 11/22/21 Unknown Hepatitis A IgM Ab Non-reactive (NonReactive) 11/12/21 04:45 Hep Bs Antigen Non-reactive (Negative) 11/12/21 04:45 Hep B Core IgM Ab Non-reactive (NonReactive) 11/12/21 04:45 Hepatitis C Antibody Non-reactive (NonReactive) 11/12/21 04:45 Blood Type O POSITIVE 11/22/21 04:20 Antibody Screen Negative 11/22/21 04:20 Iglesias/IV: Voiding Method Incontinent Active Medications - Current Medications Current Medications: Generic Name Dose Route Start Last Admin Trade Name Freq PRN Reason Stop Dose Admin Acetaminophen 650 mg 11/11/21 22:40 Acetaminophen 325 Mg Tab PO Q4H PRN Pain MILD(1-3)/Fever >100.5/SOTO Albumin Human 12.5 gm 11/23/21 10:00 11/30/21 18:45 Albumin Human 25% (12.5 Gm/50 Ml) Inj IV 12.5 gm LONG PRN Administration Hypotension Albuterol 2.5 mg 11/11/21 22:40 Albuterol 2.5 Mg/3 Ml Nebu IH Q3HRT PRN Shortness Of Breath Aspirin 325 mg 11/17/21 10:00 12/01/21 09:56 Aspirin 325 Mg Tab FEEDTUBE 325 mg QDAY BAO Administration Atorvastatin Calcium 40 mg 11/17/21 22:00 11/30/21 21:08 Atorvastatin 40 Mg Tab FEEDTUBE 40 mg QHS BAO Administration Dextrose 50 ml 11/18/21 13:00 Dextrose 50% In Water (25gm) 50 Ml Syringe IV Q30MIN PRN Hypoglycemia Protocol Famotidine 20 mg 11/17/21 10:00 12/01/21 09:56 Famotidine 20 Mg Tab FEEDTUBE 20 mg QDAY BAO Administration Hydrophilic Ointment 1 applic 11/11/21 20:56 Lip Therapy Vaseline TP Q2HR PRN Dry Lips Sodium Chloride 100 mls @ 999 mls/hr 11/26/21 12:30 Nacl 0.9% IV LONG PRN Hypotension NORepinephrine/NS 8 MG-250 ML 8 mg in 250 mls @ 3.75 mls/hr 11/29/21 11:00 12/01/21 09:56 Norepinephrine/Ns 8 Mg-250 Ml (Double Conc) IV 0 mcg/min TITRATE BAO 0 mls/hr Titration Protocol 2 MCG/MIN Insulin Human Lispro 0 unit 11/12/21 00:00 12/01/21 00:00 Insulin Lispro 100 Unit/Ml SUB-Q Not Given Q6HR BAO Protocol Lorazepam 2 mg 11/21/21 11:00 12/01/21 05:16 Lorazepam 2 Mg/Ml Vial IV 2 mg Q4H PRN Administration Agitation Midodrine 15 mg 11/29/21 12:00 12/01/21 12:54 Midodrine 5 Mg Tab PO 15 mg TID@0800,1200,1600 BAO Administration Multi-Ingred Cream/Lotion/Oil/Oint 1 applic 11/11/21 20:56 Mineral Oil/Petrolatum, White Ophth Oint 3.5 Gm OU Q4HR PRN Dry Eye(s) Ondansetron HCl 4 mg 11/11/21 22:40 Ondansetron 4 Mg/2 Ml Inj IV Q8H PRN Nausea And Vomiting Polyethylene Glycol 17 gm 11/27/21 10:00 Polyethylene Glycol 3350 17 Gm Powder PO QDAY PRN Constip unreliev by MOM/or NPO Quetiapine Fumarate 50 mg 11/28/21 22:00 11/30/21 21:08 Quetiapine 25 Mg Tab FEEDTUBE 50 mg QHS BAO Administration Senna 8.6 mg 11/17/21 10:00 12/01/21 09:56 Sennosides 8.6 Mg Tab FEEDTUBE 8.6 mg Q12H BAO Administration Sodium Chloride 10 ml 11/12/21 10:00 11/30/21 21:08 Sodium Chloride 0.9% 10 Ml Flush Syringe IV 10 ml BID BAO Administration Sodium Chloride 10 ml 11/11/21 22:40 Sodium Chloride 0.9% 10 Ml Flush Syringe IV PRN PRN LINE FLUSH Nutrition/Malnutrition Assess - Dietary Evaluation Nutrition/Malnutrition Findings: Nutrition Notes Start: 11/12/21 16:08 Freq: Status: Active Protocol: Document 11/28/21 15:01 TODD (Rec: 11/28/21 15:12 TODD [email or web address]) Nutrition Notes Initial or Follow up Reassessment Current Diagnosis Acute Kidney Injury,Diabetes, Hypertension,Respiratory Failure Other Pertinent Diagnosis Pneu Current Diet TF - Nepro at 50ml/hr Labs/Tests Na 136 BUN 49 Cr 6.6 Pertinent Medications Reviewed Height 5 ft 9 in Weight 272.155 kg [place] Body Weight (kg) 72.72 BMI 88.6 Weight change and time frame Unsure of current wt as bed scale not functioning properly ; scale needs to be re-zeroed Weight Status Morbidly Obese Subjective/Other Information Pt tolerating TF at goal rate. He remains on vent support. Trach and PEG tubes placed on 11/22. Pt had 2 large, loose stools on 11/26. Percent of energy/protein needs met: 99% energy 53% pro Burn Absent Trauma Absent #1 Nutrition Diagnosis Inadequate oral intake Diagnosis Progress(for reassessment Continues documentation) Is patient on ventilator? Yes Is Patient Ambulatory and/or Out of Bed No REE-([place] Jeor-confined to bed) 4258.320 Kcal/Kg value to use for calculation 8 Approximate Energy Requirements Using 2177 kcal/Kg Calculation Used for Recommendations Kcal/kg Additional Notes Pro needs up to 2.5g/kg IBW: 182g/day Fluid needs 1-1.5L/day Nutrition Intervention Nutrition Support: Continue Nepro at 50ml/hr with 60ml water flush q4h (per MD order sec to hyponatremia). Kcal 2,160 Protein (gm) 97 Carbohydrates (gm) 193 Fat (gm) 115 Fluid (mL) 872 Fiber (gm) 15 Goal #1 TF tolerance Goal #2 TF to meet energy and pro needs as best possible Follow-Up By: 12/05/21 Additional Comments F/U: stable TF, wt, vent status, renal function <AMADO YODER E - Last Filed: 12/01/21 17:06> Assessment and Plan Assessment and plan: I saw and evaluated the patient. I agree with the findings and the plan of care as documented in the Nurse Practitioner's~note, with the following corrections and additions. Hospitalist Physical - Constitutional Vitals: Temp Pulse Resp BP Pulse Ox 98.4 F 92 H 29 H 98/55 98 12/01/21 16:00 12/01/21 16:00 12/01/21 15:30 12/01/21 16:00 12/01/21 16:00 HEART Score - HEART Score Troponin: Troponin T 0.294 ng/mL (0.00-0.029) H* 11/22/21 08:30 Results - Labs CBC & Chem 7: 11/29/21 05:25 12/01/21 Unknown Labs: Laboratory Last Values WBC 9.4 K/mm3 (4.5-11.0) 11/29/21 05:25 RBC 2.76 M/mm3 (3.65-5.03) L 11/29/21 05:25 Hgb 7.6 gm/dl (11.8-15.2) L 11/29/21 05:25 Hct 24.3 % (35.5-45.6) L 11/29/21 05:25 MCV 88 fl (84-94) 11/29/21 05:25 MCH 27 pg (28-32) L 11/29/21 05:25 MCHC 31 % (32-34) L 11/29/21 05:25 RDW 17.7 % (13.2-15.2) H 11/29/21 05:25 Plt Count 302 K/mm3 (140-440) 11/29/21 05:25 Lymph % (Auto) 5.7 % (13.4-35.0) L 11/22/21 08:30 Falls % (Auto) 13.0 % (0.0-7.3) H 11/22/21 08:30 Eos % (Auto) 1.4 % (0.0-4.3) 11/22/21 08:30 Baso % (Auto) 0.4 % (0.0-1.8) 11/22/21 08:30 Lymph # (Auto) 0.8 K/mm3 (1.2-5.4) L 11/22/21 08:30 [place] # (Auto) 1.9 K/mm3 (0.0-0.8) H 11/22/21 08:30 Eos # (Auto) 0.2 K/mm3 (0.0-0.4) 11/22/21 08:30 Baso # (Auto) 0.1 K/mm3 (0.0-0.1) 11/22/21 08:30 Add Manual Diff Complete 11/12/21 06:55 Total Counted 100 11/12/21 06:55 Seg Neutrophils % 79.5 % (40.0-70.0) H 11/22/21 08:30 Seg Neuts % (Manual) 89.0 % (40.0-70.0) H 11/12/21 06:55 Band Neutrophils % 5.0 % 11/12/21 06:55 Lymphocytes % (Manual) 0 % (13.4-35.0) L 11/12/21 06:55 Reactive Lymphs % (Man) 0 % 11/12/21 06:55 Monocytes % (Manual) 3.0 % (0.0-7.3) 11/12/21 06:55 Eosinophils % (Manual) 0 % (0.0-4.3) 11/12/21 06:55 Basophils % (Manual) 0 % (0.0-1.8) 11/12/21 06:55 Metamyelocytes % 3.0 % 11/12/21 06:55 Myelocytes % 0 % 11/12/21 06:55 Promyelocytes % 0 % 11/12/21 06:55 Blast Cells % 0 % 11/12/21 06:55 Nucleated RBC % Not Reportable 11/12/21 06:55 Seg Neutrophils # 11.8 K/mm3 (1.8-7.7) H 11/22/21 08:30 Seg Neutrophils # Man 18.2 K/mm3 (1.8-7.7) H 11/12/21 06:55 Band Neutrophils # 1.0 K/mm3 11/12/21 06:55 Lymphocytes # (Manual) 0.0 K/mm3 (1.2-5.4) L 11/12/21 06:55 Abs React Lymphs (Man) 0.0 K/mm3 11/12/21 06:55 Monocytes # (Manual) 0.6 K/mm3 (0.0-0.8) 11/12/21 06:55 Eosinophils # (Manual) 0.0 K/mm3 (0.0-0.4) 11/12/21 06:55 Basophils # (Manual) 0.0 K/mm3 (0.0-0.1) 11/12/21 06:55 Metamyelocytes # 0.6 K/mm3 11/12/21 06:55 Myelocytes # 0.0 K/mm3 11/12/21 06:55 Promyelocytes # 0.0 K/mm3 11/12/21 06:55 Blast Cells # 0.0 K/mm3 11/12/21 06:55 WBC Morphology Not Reportable 11/12/21 06:55 Hypersegmented Neuts Not Reportable 11/12/21 06:55 Hyposegmented Neuts Not Reportable 11/12/21 06:55 Hypogranular Neuts Not Reportable 11/12/21 06:55 Smudge Cells Not Reportable 11/12/21 06:55 Toxic Granulation 1+ 11/12/21 06:55 Toxic Vacuolation Not Reportable 11/12/21 06:55 Dohle Bodies Not Reportable 11/12/21 06:55 Pelger-Huet Anomaly Not Reportable 11/12/21 06:55 Lissa Rods Not Reportable 11/12/21 06:55 Platelet Estimate Consistent w auto 11/12/21 06:55 Clumped Platelets Not Reportable 11/12/21 06:55 Plt Clumps, EDTA Not Reportable 11/12/21 06:55 Large Platelets Not Reportable 11/12/21 06:55 Giant Platelets Not Reportable 11/12/21 06:55 Platelet Satelliting Not Reportable 11/12/21 06:55 Plt Morphology Comment Not Reportable 11/12/21 06:55 RBC Morphology Normal 11/12/21 06:55 Dimorphic RBCs Not Reportable 11/12/21 06:55 Polychromasia Not Reportable 11/12/21 06:55 Hypochromasia Not Reportable 11/12/21 06:55 Poikilocytosis Not Reportable 11/12/21 06:55 Anisocytosis Not Reportable 11/12/21 06:55 Microcytosis Not Reportable 11/12/21 06:55 Macrocytosis Not Reportable 11/12/21 06:55 Spherocytes Not Reportable 11/12/21 06:55 Pappenheimer Bodies Not Reportable 11/12/21 06:55 Sickle Cells Not Reportable 11/12/21 06:55 Target Cells Not Reportable 11/12/21 06:55 Tear Drop Cells Not Reportable 11/12/21 06:55 Ovalocytes Not Reportable 11/12/21 06:55 Helmet Cells Not Reportable 11/12/21 06:55 [place] Bodies Not Reportable 11/12/21 06:55 [place] Rings Not Reportable 11/12/21 06:55 [place] Cells Not Reportable 11/12/21 06:55 Bite Cells Not Reportable 11/12/21 06:55 Crenated Cell Not Reportable 11/12/21 06:55 Elliptocytes Not Reportable 11/12/21 06:55 Acanthocytes (Spur) Not Reportable 11/12/21 06:55 Rouleaux Not Reportable 11/12/21 06:55 Hemoglobin C Crystals Not Reportable 11/12/21 06:55 Schistocytes Not Reportable 11/12/21 06:55 Malaria parasites Not Reportable 11/12/21 06:55 Nam Bodies Not Reportable 11/12/21 06:55 Hem Pathologist Commnt No 11/12/21 06:55 PT 14.4 Sec. (12.2-14.9) 11/22/21 04:00 INR 1.01 (0.87-1.13) 11/22/21 04:00 ABG pH 7.369 pH Units (7.350-7.450) 12/01/21 11:25 ABG pCO2 46.8 mm Hg 12/01/21 11:25 ABG pO2 87.4 mm Hg (80.0-90.0) 12/01/21 11:25 ABG HCO3 26.4 mmol/L (20.0-26.0) H 12/01/21 11:25 ABG O2 Saturation 96.8 % (95.0-99.0) 12/01/21 11:25 ABG O2 Content 9.6 (0.0-44) 12/01/21 11:25 ABG Base Excess 0.9 mmol/L (-2.0-3.0) 12/01/21 11:25 ABG Hemoglobin 7.1 gm/dl (14.0-18.0) L 12/01/21 11:25 ABG Carboxyhemoglobin 1.4 % (0.0-5.0) 12/01/21 11:25 ABG Methemoglobin 0.5 % (0.0-1.5) 12/01/21 11:25 Oxyhemoglobin 94.9 % (95.0-99.0) L 12/01/21 11:25 FiO2 30 % 12/01/21 11:25 Sodium 135 mmol/L (137-145) L 12/01/21 Unknown Potassium 4.3 mmol/L (3.6-5.0) 12/01/21 Unknown Chloride 94.1 mmol/L (98-107) L 12/01/21 Unknown Carbon Dioxide 24 mmol/L (22-30) 12/01/21 Unknown Anion Gap 21 mmol/L 12/01/21 Unknown BUN 52 mg/dL (9-20) H 12/01/21 Unknown Creatinine 6.7 mg/dL (0.8-1.3) H 12/01/21 Unknown Estimated GFR 10 ml/min 12/01/21 Unknown BUN/Creatinine Ratio 8 % 12/01/21 Unknown Glucose 119 mg/dL (75-100) H 12/01/21 Unknown POC Glucose 102 mg/dL (70-105) 12/01/21 11:35 Hemoglobin A1c 5.7 % (4-6) 11/12/21 06:55 Lactic Acid 0.90 mmol/L (0.7-2.0) 11/11/21 19:49 Calcium 8.9 mg/dL (8.4-10.2) 12/01/21 Unknown Phosphorus 4.50 mg/dL (2.5-4.5) D 11/30/21 04:00 Magnesium 2.10 mg/dL (1.7-2.3) 11/30/21 04:00 Iron 24 ug/dL (49-181) L 11/11/21 23:29 TIBC 157 mcg/dL (250-450) L 11/11/21 23:29 Total Bilirubin 0.40 mg/dL (0.1-1.2) 11/11/21 19:49 AST 10 units/L (5-40) 11/11/21 19:49 ALT 7 units/L (7-56) 11/11/21 19:49 Alkaline Phosphatase 111 units/L (35-129) 11/11/21 19:49 Total Creatine Kinase 534 units/L (55-170) H 11/22/21 08:30 CK-MB (CK-2) 2.4 ng/mL (0.0-4.0) 11/22/21 08:30 CK-MB (CK-2) Rel Index 0.4 (0-4) 11/22/21 08:30 Troponin T 0.294 ng/mL (0.00-0.029) H* 11/22/21 08:30 NT-Pro-B Natriuret Pep 3674 pg/mL (0-900) H 11/12/21 Unknown Total Protein 9.1 g/dL (6.3-8.2) H 11/11/21 19:49 Albumin 3.0 g/dL (3.9-5) L 11/11/21 19:49 Albumin/Globulin Ratio 0.5 % 11/11/21 19:49 Triglycerides 109 mg/dL (2-149) 11/21/21 04:00 Cholesterol 146 mg/dL (50-199) 11/11/21 19:49 LDL Cholesterol Direct 85 mg/dL (50-130) 11/11/21 19:49 HDL Cholesterol 43 mg/dL (40-59) 11/11/21 19:49 Cholesterol/HDL Ratio 3.39 % 11/11/21 19:49 PTH Intact 1174 pg/mL (15-65) H 11/11/21 23:29 Urine Color Yellow (Yellow) 11/12/21 02:20 Urine Turbidity Cloudy (Clear) 11/12/21 02:20 Urine pH 5.0 (5.0-7.0) 11/12/21 02:20 Ur Specific [place] 1.013 (1.003-1.030) 11/12/21 02:20 Urine Protein >500 mg/dL (Negative) 11/12/21 02:20 Urine Glucose (UA) Neg mg/dL (Negative) 11/12/21 02:20 Urine Ketones Neg mg/dL (Negative) 11/12/21 02:20 Urine Blood Sm (Negative) 11/12/21 02:20 Urine Nitrite Neg (Negative) 11/12/21 02:20 Urine Bilirubin Neg (Negative) 11/12/21 02:20 Urine Urobilinogen < 2.0 mg/dL (<2.0) 11/12/21 02:20 Ur Leukocyte Esterase Tr (Negative) 11/12/21 02:20 Urine WBC (Auto) 12.0 /HPF (0.0-6.0) H 11/12/21 02:20 Urine RBC (Auto) 4.0 /HPF (0.0-6.0) 11/12/21 02:20 U Epithel Cells (Auto) 9.0 /HPF (0-13.0) 11/12/21 02:20 Urine Bacteria (Auto) 2+ /HPF (Negative) 11/12/21 02:20 Urine Mucus Few /HPF 11/12/21 02:20 Urine Yeast (Budding) 3+ /HPF 11/12/21 02:20 Urine Eosinophils None seen (None Seen) 11/12/21 02:20 Urine Creatinine 189.3 mg/dL (0.1-20.0) H 11/12/21 02:20 Urine Sodium 30 mmol/L 11/12/21 02:20 Coronavirus (PCR) Negative (Negative) 11/22/21 Unknown Hepatitis A IgM Ab Non-reactive (NonReactive) 11/12/21 04:45 Hep Bs Antigen Non-reactive (Negative) 11/12/21 04:45 Hep B Core IgM Ab Non-reactive (NonReactive) 11/12/21 04:45 Hepatitis C Antibody Non-reactive (NonReactive) 11/12/21 04:45 Blood Type O POSITIVE 11/22/21 04:20 Antibody Screen Negative 11/22/21 04:20 Iglesias/IV: Voiding Method Incontinent Active Medications - Current Medications Current Medications: Generic Name Dose Route Start Last Admin Trade Name Freq PRN Reason Stop Dose Admin Acetaminophen 650 mg 11/11/21 22:40 Acetaminophen 325 Mg Tab PO Q4H PRN Pain MILD(1-3)/Fever >100.5/SOTO Albumin Human 12.5 gm 11/23/21 10:00 11/30/21 18:45 Albumin Human 25% (12.5 Gm/50 Ml) Inj IV 12.5 gm LONG PRN Administration Hypotension Albuterol 2.5 mg 11/11/21 22:40 Albuterol 2.5 Mg/3 Ml Nebu IH Q3HRT PRN Shortness Of Breath Aspirin 325 mg 11/17/21 10:00 12/01/21 09:56 Aspirin 325 Mg Tab FEEDTUBE 325 mg QDAY BAO Administration Atorvastatin Calcium 40 mg 11/17/21 22:00 11/30/21 21:08 Atorvastatin 40 Mg Tab FEEDTUBE 40 mg QHS BAO Administration Dextrose 50 ml 11/18/21 13:00 Dextrose 50% In Water (25gm) 50 Ml Syringe IV Q30MIN PRN Hypoglycemia Protocol Famotidine 20 mg 11/17/21 10:00 12/01/21 09:56 Famotidine 20 Mg Tab FEEDTUBE 20 mg QDAY BAO Administration Hydrophilic Ointment 1 applic 11/11/21 20:56 Lip Therapy Vaseline TP Q2HR PRN Dry Lips Sodium Chloride 100 mls @ 999 mls/hr 11/26/21 12:30 Nacl 0.9% IV LONG PRN Hypotension NORepinephrine/NS 8 MG-250 ML 8 mg in 250 mls @ 3.75 mls/hr 11/29/21 11:00 12/01/21 09:56 Norepinephrine/Ns 8 Mg-250 Ml (Double Conc) IV 0 mcg/min TITRATE BAO 0 mls/hr Titration Protocol 2 MCG/MIN Insulin Human Lispro 0 unit 11/12/21 00:00 12/01/21 00:00 Insulin Lispro 100 Unit/Ml SUB-Q Not Given Q6HR BAO Protocol Lorazepam 2 mg 11/21/21 11:00 12/01/21 05:16 Lorazepam 2 Mg/Ml Vial IV 2 mg Q4H PRN Administration Agitation Midodrine 15 mg 11/29/21 12:00 12/01/21 12:54 Midodrine 5 Mg Tab PO 15 mg TID@0800,1200,1600 BAO Administration Multi-Ingred Cream/Lotion/Oil/Oint 1 applic 11/11/21 20:56 Mineral Oil/Petrolatum, White Ophth Oint 3.5 Gm OU Q4HR PRN Dry Eye(s) Ondansetron HCl 4 mg 11/11/21 22:40 Ondansetron 4 Mg/2 Ml Inj IV Q8H PRN Nausea And Vomiting Polyethylene Glycol 17 gm 11/27/21 10:00 Polyethylene Glycol 3350 17 Gm Powder PO QDAY PRN Constip unreliev by MOM/or NPO Quetiapine Fumarate 50 mg 11/28/21 22:00 11/30/21 21:08 Quetiapine 25 Mg Tab FEEDTUBE 50 mg QHS BAO Administration Senna 8.6 mg 11/17/21 10:00 12/01/21 09:56 Sennosides 8.6 Mg Tab FEEDTUBE 8.6 mg Q12H BAO Administration Sodium Chloride 10 ml 11/12/21 10:00 11/30/21 21:08 Sodium Chloride 0.9% 10 Ml Flush Syringe IV 10 ml BID BAO Administration Sodium Chloride 10 ml 11/11/21 22:40 Sodium Chloride 0.9% 10 Ml Flush Syringe IV PRN PRN LINE FLUSH Nutrition/Malnutrition Assess - Dietary Evaluation Nutrition/Malnutrition Findings: Nutrition Notes Start: 11/12/21 16:08 Freq: Status: Active Protocol: Document 11/28/21 15:01 TODD (Rec: 11/28/21 15:12 TODD [id number]) Nutrition Notes Initial or Follow up Reassessment Current Diagnosis Acute Kidney Injury,Diabetes, Hypertension,Respiratory Failure Other Pertinent Diagnosis Pneu Current Diet TF - Nepro at 50ml/hr Labs/Tests Na 136 BUN 49 Cr 6.6 Pertinent Medications Reviewed Height 5 ft 9 in Weight 272.155 kg [place] Body Weight (kg) 72.72 BMI 88.6 Weight change and time frame Unsure of current wt as bed scale not functioning properly ; scale needs to be re-zeroed Weight Status Morbidly Obese Subjective/Other Information Pt tolerating TF at goal rate. He remains on vent support. Trach and PEG tubes placed on 11/22. Pt had 2 large, loose stools on 11/26. Percent of energy/protein needs met: 99% energy 53% pro Burn Absent Trauma Absent #1 Nutrition Diagnosis Inadequate oral intake Diagnosis Progress(for reassessment Continues documentation) Is patient on ventilator? Yes Is Patient Ambulatory and/or Out of Bed No REE-([facility]-confined to bed) 4258.320 Kcal/Kg value to use for calculation 8 Approximate Energy Requirements Using 2177 kcal/Kg Calculation Used for Recommendations Kcal/kg Additional Notes Pro needs up to 2.5g/kg IBW: 182g/day Fluid needs 1-1.5L/day Nutrition Intervention Nutrition Support: Continue Nepro at 50ml/hr with 60ml water flush q4h (per MD order sec to hyponatremia). Kcal 2,160 Protein (gm) 97 Carbohydrates (gm) 193 Fat (gm) 115 Fluid (mL) 872 Fiber (gm) 15 Goal #1 TF tolerance Goal #2 TF to meet energy and pro needs as best possible Follow-Up By: 12/05/21 Additional Comments F/U: stable TF, wt, vent status, renal function
[2021-12-01] MEDS: INSULIN LISPRO 100 UNIT/ML SUB-Q SCH ×2 (18:02)
[2021-12-01] MEDS: QUEtiapine 25 MG TAB FEEDTUBE SCH (21:00)
[2021-12-02] MEDS: INSULIN LISPRO 100 UNIT/ML SUB-Q SCH ×2 (00:21→05:36)
[2021-12-02 05:51] LABS: Calcium 8.1 mg/dL (8.4-10.2)
[2021-12-02] MEDS: MIDODRINE 5 MG TAB PO SCH (08:13)
--- NOTE | 2021-12-02 09:36 | Progress Note ---
Subjective Date of service: 12/02/21 Principal diagnosis: Acute respiratory failure, Interval history: Acute respiratory failure Pneumonia Hypoxia KD (acute kidney injury) on top of CKD Hyperkalemia Diabetes Elevated troponin Hypertension Obesity Acidosis Plan -HD today for clearance and volume removal -Consulted IR on 11/30/21 for perm-catheter placement prior to discharge -Renal ultrasound- Left kidney no visualized. No hydronephrosis to right kidney -Renally dose all medications -Obtain daily weights -Monitor I/O's daily -Assess dialysis needs daily -Plan to be discharge to [facility] once bed available Objective - Vital Signs Vital signs: Vital Signs - 12hr 12/01/21 12/01/21 12/01/21 22:00 22:08 23:27 Temperature 98.9 F Pulse Rate 85 88 Pulse Rate [ From Monitor] Respiratory 20 17 Rate Blood Pressure 92/48 92/48 O2 Sat by Pulse 97 99 Oximetry O2 Sat by Pulse Oximetry [ Assessment] 12/01/21 12/02/21 12/02/21 23:45 00:00 00:21 Temperature Pulse Rate 87 83 Pulse Rate [ 89 From Monitor] Respiratory 20 Rate Blood Pressure 95/52 O2 Sat by Pulse 100 99 Oximetry O2 Sat by Pulse Oximetry [ Assessment] 12/02/21 12/02/21 12/02/21 00:24 00:30 01:00 Temperature Pulse Rate 89 90 86 Pulse Rate [ From Monitor] Respiratory 19 20 15 Rate Blood Pressure 100/61 105/62 O2 Sat by Pulse 98 99 99 Oximetry O2 Sat by Pulse Oximetry [ Assessment] 12/02/21 12/02/21 12/02/21 01:30 02:00 02:30 Temperature Pulse Rate 90 88 62 Pulse Rate [ From Monitor] Respiratory 17 19 18 Rate Blood Pressure 99/59 102/63 112/57 O2 Sat by Pulse 100 98 99 Oximetry O2 Sat by Pulse Oximetry [ Assessment] 12/02/21 12/02/21 12/02/21 03:00 03:19 03:30 Temperature 99.5 F Pulse Rate 89 85 Pulse Rate [ From Monitor] Respiratory 16 16 Rate Blood Pressure 92/48 111/63 O2 Sat by Pulse 99 100 Oximetry O2 Sat by Pulse Oximetry [ Assessment] 12/02/21 12/02/21 12/02/21 03:56 04:00 04:10 Temperature Pulse Rate 90 88 90 Pulse Rate [ 90 From Monitor] Respiratory 20 Rate Blood Pressure 115/64 115/64 O2 Sat by Pulse 100 99 Oximetry O2 Sat by Pulse Oximetry [ Assessment] 12/02/21 12/02/21 12/02/21 04:12 04:30 05:00 Temperature Pulse Rate 82 85 Pulse Rate [ From Monitor] Respiratory 20 19 Rate Blood Pressure 132/75 143/63 O2 Sat by Pulse 100 100 Oximetry O2 Sat by Pulse 99 Oximetry [ Assessment] 12/02/21 12/02/21 12/02/21 05:30 06:00 06:30 Temperature Pulse Rate 87 90 85 Pulse Rate [ From Monitor] Respiratory 19 21 20 Rate Blood Pressure 114/68 113/77 109/64 O2 Sat by Pulse 100 100 100 Oximetry O2 Sat by Pulse Oximetry [ Assessment] 12/02/21 12/02/21 12/02/21 07:00 07:30 08:00 Temperature 99.2 F Pulse Rate 87 85 81 Pulse Rate [ 84 From Monitor] Respiratory 18 33 H 36 H Rate Blood Pressure 109/64 103/56 75/36 O2 Sat by Pulse 100 100 100 Oximetry O2 Sat by Pulse 100 Oximetry [ Assessment] 12/02/21 12/02/21 08:30 09:00 Temperature Pulse Rate 83 91 H Pulse Rate [ From Monitor] Respiratory 20 19 Rate Blood Pressure 83/59 125/78 O2 Sat by Pulse 100 99 Oximetry O2 Sat by Pulse Oximetry [ Assessment] - Lab 11/29/21 05:25 12/02/21 04:00 Most recent lab results ABG pH 7.369 pH Units (7.350-7.450) 12/01/21 11:25 ABG pCO2 46.8 mm Hg 12/01/21 11:25 ABG pO2 87.4 mm Hg (80.0-90.0) 12/01/21 11:25 ABG HCO3 26.4 mmol/L (20.0-26.0) H 12/01/21 11:25 ABG O2 Saturation 96.8 % (95.0-99.0) 12/01/21 11:25 Calcium 8.1 mg/dL (8.4-10.2) L 12/02/21 04:00 Phosphorus 4.50 mg/dL (2.5-4.5) D 11/30/21 04:00 Magnesium 2.10 mg/dL (1.7-2.3) 11/30/21 04:00 Urine Creatinine 189.3 mg/dL (0.1-20.0) H 11/12/21 02:20 Urine Sodium 30 mmol/L 11/12/21 02:20 Medications & Allergies - Medications Allergies/Adverse Reactions: Allergies No Known Allergies Allergy (Verified 11/11/21 20:58) Home Medications: Home Medications Medication Instructions Recorded Confirmed Last Taken Type Aspirin 325 mg FEEDTUBE QDAY tablet 12/01/21 Unknown Rx AtorvaSTATin [Lipitor] 40 mg FEEDTUBE QHS tablet 12/01/21 Unknown Rx Famotidine [Pepcid] 20 mg FEEDTUBE QDAY tablet 12/01/21 Unknown Rx Lispro Insulin [HumaLOG] 0 unit SUB-Q Q6HR units 12/01/21 Unknown Rx Midodrine [Proamatine] 15 mg PO TID@0800,1200,1600 tablet 12/01/21 Unknown Rx QUEtiapine [SEROquel] 50 mg FEEDTUBE QHS tablet 12/01/21 Unknown Rx Sennosides Tab [Senokot] 8.6 mg FEEDTUBE Q12H tablet 12/01/21 Unknown Rx polyethylene glycoL 3350 [Miralax 17 gm PO QDAY PRN powd.pack 12/01/21 Unknown Rx 3350] Active Medications: Generic Name Dose Route Start Last Admin Trade Name Freq PRN Reason Stop Dose Admin Acetaminophen 650 mg 11/11/21 22:40 Acetaminophen 325 Mg Tab PO Q4H PRN Pain MILD(1-3)/Fever >100.5/SOTO Albumin Human 12.5 gm 11/23/21 10:00 11/30/21 18:45 Albumin Human 25% (12.5 Gm/50 Ml) Inj IV 12.5 gm LONG PRN Administration Hypotension Albuterol 2.5 mg 11/11/21 22:40 Albuterol 2.5 Mg/3 Ml Nebu IH Q3HRT PRN Shortness Of Breath Aspirin 325 mg 11/17/21 10:00 12/01/21 09:56 Aspirin 325 Mg Tab FEEDTUBE 325 mg QDAY BAO Administration Atorvastatin Calcium 40 mg 11/17/21 22:00 12/01/21 21:00 Atorvastatin 40 Mg Tab FEEDTUBE 40 mg QHS BAO Administration Dextrose 50 ml 11/18/21 13:00 Dextrose 50% In Water (25gm) 50 Ml Syringe IV Q30MIN PRN Hypoglycemia Protocol Famotidine 20 mg 11/17/21 10:00 12/01/21 09:56 Famotidine 20 Mg Tab FEEDTUBE 20 mg QDAY BAO Administration Hydrophilic Ointment 1 applic 11/11/21 20:56 Lip Therapy Vaseline TP Q2HR PRN Dry Lips Sodium Chloride 100 mls @ 999 mls/hr 11/26/21 12:30 Nacl 0.9% IV LONG PRN Hypotension NORepinephrine/NS 8 MG-250 ML 8 mg in 250 mls @ 3.75 mls/hr 11/29/21 11:00 12/01/21 09:56 Norepinephrine/Ns 8 Mg-250 Ml (Double Conc) IV 0 mcg/min TITRATE BAO 0 mls/hr Titration Protocol 2 MCG/MIN Insulin Human Lispro 0 unit 11/12/21 00:00 12/02/21 05:36 Insulin Lispro 100 Unit/Ml SUB-Q Not Given Q6HR BAO Protocol Lorazepam 2 mg 11/21/21 11:00 12/01/21 05:16 Lorazepam 2 Mg/Ml Vial IV 2 mg Q4H PRN Administration Agitation Midodrine 15 mg 11/29/21 12:00 12/02/21 08:13 Midodrine 5 Mg Tab PO 15 mg TID@0800,1200,1600 BAO Administration Multi-Ingred Cream/Lotion/Oil/Oint 1 applic 11/11/21 20:56 Mineral Oil/Petrolatum, White Ophth Oint 3.5 Gm OU Q4HR PRN Dry Eye(s) Ondansetron HCl 4 mg 11/11/21 22:40 Ondansetron 4 Mg/2 Ml Inj IV Q8H PRN Nausea And Vomiting Polyethylene Glycol 17 gm 11/27/21 10:00 Polyethylene Glycol 3350 17 Gm Powder PO QDAY PRN Constip unreliev by MOM/or NPO Quetiapine Fumarate 50 mg 11/28/21 22:00 12/01/21 21:00 Quetiapine 25 Mg Tab FEEDTUBE 50 mg QHS BAO Administration Senna 8.6 mg 11/17/21 10:00 12/01/21 21:00 Sennosides 8.6 Mg Tab FEEDTUBE 8.6 mg Q12H BAO Administration Sodium Chloride 10 ml 11/12/21 10:00 12/01/21 21:00 Sodium Chloride 0.9% 10 Ml Flush Syringe IV 10 ml BID BAO Administration Sodium Chloride 10 ml 11/11/21 22:40 Sodium Chloride 0.9% 10 Ml Flush Syringe IV PRN PRN LINE FLUSH
[2021-12-02 11:20] VITALS: BP 111/60
[2021-12-02] MEDS: ASPIRIN 325 MG TAB FEEDTUBE SCH (11:20)
[2021-12-02] MEDS: SENNOSIDES 8.6 MG TAB FEEDTUBE SCH (11:20)
[2021-12-02] MEDS: FAMOTIDINE 20 MG TAB FEEDTUBE SCH (11:20)
--- NOTE | 2021-12-02 11:25 | Event Note ---
Date: 12/02/21 Received consult for placement of PermCath patient who previously had Vas-Cath placed in the ICU. Review of notes demonstrated that LTAC receiving facility was willing to place PermCath and therefore he was not placed on her schedule. If they are unable to place a PermCath, we will schedule the patient for placement of PermCath in the OR on bariatric beds however, this will most likely not available till Sunday giving schedule availability. The patient's weight greatly exceeds the ability to do procedures on him in the [employer].
--- NOTE | 2021-12-02 11:32 | Discharge Summary ---
<RUFUS ALVAREZ - Last Filed: 12/02/21 11:32> Providers - Providers Date of Admission: 11/11/21 22:40 Date of discharge: 12/02/21 Attending physician: AMADO YODER MD 11/11/21 22:40 Consult to Dietitian/Nutrition [CONS] Routine Physician Instructions: Reason For Exam: Reason for Consult: Diet education Consult to Physician [CONS] Routine Comment: Dr. Shafer spoke with Dr. Umana @ 1969 Consulting Provider: JAKE UMANA Physician Instructions: Reason For Exam: Acute respiratory failure 11/11/21 23:03 Consult to Physician [CONS] Routine Comment: Dr. Shafer spoke with Dr. Vargas @ [phone] Consulting Provider: CHUY VARGAS Physician Instructions: Reason For Exam: arf 11/11/21 23:19 Consult to Physician [CONS] Routine Comment: Consulting Provider: YVONNE ALLAN Physician Instructions: Reason For Exam: Elevated troponin 11/12/21 09:51 Consult to Dietitian/Nutrition [CONS] Routine Physician Instructions: Reason For Exam: Reason for Consult: Write/Manage Tube Feeding 11/16/21 08:31 Consult to Physician [CONS] Routine Comment: called office/ mehrdad Consulting Provider: CYNDI PACHECO Physician Instructions: Reason For Exam: Trach/Peg eval 11/30/21 13:23 Consult to Interventional Radiology [CONS] Routine Consulting Provider: KADEN BALLARD Reason For Exam: Perm-catheter placement prior to discharge Place consult to:: kaden foote Notified:: yes Phone number called:: [phone] Was contact made?: Yes Time called:: 16:35 Comment:: spoke with answering service 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 Iglesias catheter was also placed. Antibiotics discontinued. proBNP pending. Decrease in FiO2 related to ABG. Echocardiogram pending. Patient given X1 for potassium 5.5 and nutrition consulted for tube feedings. updated brother at bedside 11/13: Propofol letter for sedation as patient seems restless on the ventilator only on fentanyl. HD scheduled for today. [facility] plans to conduct PSV possibly Sunday. 11/14: Tolerated HD overnight, 2L removed. Plan for possible HD again today. Patient is tolerating PST today on low dose fentanyl, plan for possible extubation tomorrow. 11/15: SANA overnight. Remains on the vent and on low dose sedation. Continue to tolerate HD. Plan for PST and possible extubation today. 11/16: Failed extubation yesterday and had to be emergently reintubated due to hypoxia and decreased LOC. Patient is stable on the vent this am, remains on low dose sedation, while awake and following commands. CCM recommendations noted due to patient's body habitus, he might need to be trach/Peg. CT neck was canceled due to weight limit. General Surgery consulted for Trach/PEG eval. 11/17: Remains on the vent, sedation increased overnight due to increased agitation and low dose pressors were initiated. Patient tolerated HD yesterday, plan for HD again today. Plan for possible trach/PEG vs possible transfer for ENT eval for trach/PEG. Awaiting on General surgery recommendations. 11/18: SANA overnight. D/w [facility] plan for US thyroid biopsy per General Surgery recommendation due thyroid nodule to r/o malignancy. Patient remains on low dose levophed gtt. Continue HD per Nephro. 11/19: Periods of low SPO2 overnight which resolved with deep suctioning. Patient remains on low dose vent setting, no respiratory distress noted this am. Patient remains on sedation and low dose levophed, MAP in the 70s, continue to wean pressors for MAP above 65. Pending US biopsy of the thyroid for possible trach per General Surgery. 11/20: SANA overnight. Remains on low dose pressors, continue to wean for MAP above 65. Pending US guided thyroid biopsy for possible trach/PEG per General Surgery. 11/21: Trach/PEG postponed till tomorrow. Neurology consult completed who recommended MRI brain and EEG. NGT will be replaced. Will give mag citrate once placed has patient has not had a BM since 11/17 11/22: Patient had a trach/PEG placed today. Will remain n.p.o. till tomorrow morning. On palpation right wrist may have dislocation, x-ray ordered. Confirmed dislocation. Will order sling. 11/23: Attempted hemodialysis today at bedside however unable to record blood pressure and he was given albumin and and started on Levophed. Levophed was still maxed at 30 mcg and vasopressin was added. 1 dose of hydrocortisone 100 mg did not yield results. Attempts to place a line was unsuccessful however blood pressure reading was in the 180s and hemodialysis was resumed. Shortly after resumption patient became hypotensive and was again maxed on Levophed. Hemodialysis was abandoned. 11/24: Haldol scheduled for possibly delirium per CCM, RN to attempt to decrease sedation as tolerated. RT asked to place on SPT. 11/25: CAM ICU negative, started on Levophed overnight, added midodrine. HD orders noted 11/26: HD planned today. Patient seems to be comfortable. RT placed on PSV. 11/28: Remains stable on the vent, tolerated PST over the weekend. Continue daily PST. qHs Seroquel added to promote rest and maintain sleep-wake cycle. Plan for HD today per Nephro. Possible LTAC placement, case management to arrange. 11/29: Hypotensive during HD overnight, required short duration of levophed gtt. Pressors are off this am, midodrine increased to 15mg TID. Awaiting LTAC placement, case management to arrange. 11/30: SANA overnight, remains stable on the vent. Continue daily PST as tolerated. Plan for HD today. Possible transfer to LTAC tomorrow. 12/01: Hypotensive again yesterday during HD required pressors. Levophed gtt off this am, VSS. Patient was acceptable and ready for transfer to LTAC, however transfer is hold today due to transportation. Possible transfer to LTAC tomorrow. 12/02: SANA overnight. Transfer to LTAC today. Assessment and Plan Neuro: Acute metabolic encephalopathy -Remains on the vent, drowsy this am -Restlessness and Insomnia -qHs Seroquel added -Monitor Qtc -Avoid delirium -Reorientation as needed -Maintain sleep-wake cycle -aspiration/seizure precautions -As needed analgesia for CPOT greater than 3 -Neurology on consult Cardiac: h/o HTN, elevated troponins -Cardiology consulted, appreciate recommendations -S/p vasopressor support -Now on Midodrine -Echocardiogram shows ejection fraction greater than 70 -Blood pressure monitoring per protocol -Maintain MAP above 65 Respiratory: Acute hypoxic respiratory failure, ? [facility] consulted, appreciate recommendations -Intubated in the emergency department on 11/04 -11/15 Failed extubation had to be emergently reintubated due to hypoxia and decreased LOC -4/5 s/p Trach/PEG placement -Vent settings:CPAP-30%,6 PS-12 -VAP bundle addressed -Aspiration precaution HOB above 30 -Daily PSV trials as tolerated -PRN ABG and CXR per [facility] -Continue SPO2 monitoring for SPO2 goal above 92% GI: Protin calorie malnutrition, Morbid obesity -4/5 s/p PEGTube placement -Continue enteral nutrition -NTR consulted for tube feedings -BR: Colace : Acute Renal Failure -FeNa 1.04% indicating either ATN or prerenal state -Nephrology consulted, appreciate recommendations -Vas-Cath placed at HD initiated 11/12 -HD per nephrology -Strict intake and output -Renally dose medications -Avoid nephrotoxic medications -Daily weights -Renal ultrasound pending -Trend BMP -Repeat magnesium Endo:Thyroid Nodule h/o DM -Head/neck ultrasound showed left thyroid lobe nodule is a T1 RADS category 3 lesion, current recommendation is follow-up in 1 year -Reexamination by Dr. Gutierrez showed nodule approximately 2.3 cm in maximum dim ension. Rec. Follow-up at 1, 3, 5-year intervals to be appropriate -Hemoglobin A1c 5.7 -SSI -Accu-Cheks q. 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 The aggregate critical care time was [60] minutes. This time is in addition to time spent performing reported procedures but includes the following: [x] Data Review and interpretation [x] Patient assessment and monitoring of vital signs [x] Documentation [x] Medication orders and management Disposition Plan: ICU Total Time Spent with Patient (Minutes): 60 Disposition: [facility] Final Discharge Diagnosis (Prints w/discharge instructions): Acute Hypoxic Respiratory Failure s/p Tracheostomy. ESRD now on HD Time spent for discharge: 35 Core Measure Documentation - Palliative Care Palliative Care/ Comfort Measures: Not Applicable - Core Measures Any of the following diagnoses?: none Exam - Physical Exam Narrative exam: General appearance: Present: no acute distress, obese, other (tracheostomy, on the vent) - EENT Eyes: Present: PERRL ENT: hearing intact, clear oral mucosa - Neck Neck: Present: normal ROM - Respiratory Respiratory effort: normal Respiratory: bilateral: rhonchi - Cardiovascular Rhythm: regular Heart Sounds: Present: S1 & S2 - Extremities Extremities: no ischemia, pulses intact, pulses symmetrical Extremity abnormal: edema - Peripheral Assessment Generalized Edema Type: Non-pitting Edema Degree: 2+ Capillary Refill: < 3 seconds Skin Temperature: Warm Peripheral Pulses: within normal limits - Abdominal General gastrointestinal: soft, non-distended, normal bowel sounds - Integumentary Integumentary: Present: warm, dry - Psychiatric Psychiatric: appropriate mood/affect, cooperative, other (tracheostomy, on the vent) - Neurologic Neurologic: moves all extremities (Except Right Wrist due to chronic fracture), other (tracheostomy, on the vent) - Allied Health Allied health notes reviewed: nursing, case management - Constitutional Vitals: Temp Pulse Resp BP Pulse Ox 99.2 F 87 19 111/60 99 12/02/21 08:00 12/02/21 11:00 12/02/21 11:00 12/02/21 11:00 12/02/21 11:00 Plan Activity: no restrictions, other (Per LTAC facility) Diet: other (Enteral Nutrition via PEG-Tube) Wound: open to air Special Instructions: physical therapy, occupational therapy, other (Per LTAC facility) Follow up with: SILVANO BENDER MD [Primary Care Provider] - 7 Days <AMADO YODER - Last Filed: 12/03/21 07:08> Providers - Providers Date of Admission: 11/11/21 22:40 Attending physician: AMADO YODER MD 11/11/21 22:40 Consult to Dietitian/Nutrition [CONS] Routine Physician Instructions: Reason For Exam: Reason for Consult: Diet education Consult to Physician [CONS] Routine Comment: Dr. Shafer spoke with Dr. Umana @ [phone] Consulting Provider: JAKE UMANA Physician Instructions: Reason For Exam: Acute respiratory failure 11/11/21 23:03 Consult to Physician [CONS] Routine Comment: Dr. Shafer spoke with Dr. Vargas @ [phone] Consulting Provider: CHUY VARGAS Physician Instructions: Reason For Exam: arf 11/11/21 23:19 Consult to Physician [CONS] Routine Comment: Consulting Provider: YVONNE ALLAN Physician Instructions: Reason For Exam: Elevated troponin 11/12/21 09:51 Consult to Dietitian/Nutrition [CONS] Routine Physician Instructions: Reason For Exam: Reason for Consult: Write/Manage Tube Feeding 11/16/21 08:31 Consult to Physician [CONS] Routine Comment: called office/ mehrdad Consulting Provider: CYNDI PACHECO Physician Instructions: Reason For Exam: Trach/Peg eval 11/30/21 13:23 Consult to Interventional Radiology [CONS] Routine Consulting Provider: KADEN BALLARD Reason For Exam: Perm-catheter placement prior to discharge Place consult to:: kaden foote Notified:: yes Phone number called:: [phone] Was contact made?: Yes Time called:: 16:35 Comment:: spoke with answering service will reach out to 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 I agree with the findings and the plan of care as documented in the Nurse Practitioner's~note, with the following corrections and additions. Exam - Constitutional Vitals: Temp Pulse Resp BP Pulse Ox 99.2 F 87 20 111/60 98 12/02/21 08:00 12/02/21 11:00 12/02/21 11:30 12/02/21 11:00 12/02/21 11:30
== END 2021-12-02 12:06 | DRG 4 ==
LOC: ED 18:13 → CC1 22:40
PROVIDERS: ADMIT Hospitalist; ATTEND Internal Medicine
PROC: 5A1955Z Respiratory Ventilation, Greater than 96 Consecutive Hours (ICD-10-PCS; principal; 2021-11-11)
PROC: 0BH17EZ Insertion of Endotracheal Airway into Trachea, Via Natural or Artificial Opening (ICD-10-PCS; 2021-11-11)
PROC: 06HM33Z Insertion of Infusion Device into Right Femoral Vein, Percutaneous Approach (ICD-10-PCS; 2021-11-11)
PROC: B54BZZA Ultrasonography of Right Lower Extremity Veins, Guidance (ICD-10-PCS; 2021-11-11)
PROC: 5A09357 Assistance with Respiratory Ventilation, Less than 24 Consecutive Hours, Continuous Positive Airway Pressure (ICD-10-PCS; 2021-11-11)
PROC: 05HM33Z Insertion of Infusion Device into Right Internal Jugular Vein, Percutaneous Approach (ICD-10-PCS; 2021-11-12)
PROC: B543ZZA Ultrasonography of Right Jugular Veins, Guidance (ICD-10-PCS; 2021-11-12)
PROC: 5A1D70Z Performance of Urinary Filtration, Intermittent, Less than 6 Hours Per Day (ICD-10-PCS; 2021-11-12)
PROC: 5A1D70Z Performance of Urinary Filtration, Intermittent, Less than 6 Hours Per Day (ICD-10-PCS; 2021-11-13)
PROC: 5A1D70Z Performance of Urinary Filtration, Intermittent, Less than 6 Hours Per Day (ICD-10-PCS; 2021-11-14)
PROC: 4A033R1 Measurement of Arterial Saturation, Peripheral, Percutaneous Approach (ICD-10-PCS; 2021-11-15)
PROC: 5A1D70Z Performance of Urinary Filtration, Intermittent, Less than 6 Hours Per Day (ICD-10-PCS; 2021-11-16)
PROC: 5A1D70Z Performance of Urinary Filtration, Intermittent, Less than 6 Hours Per Day (ICD-10-PCS; 2021-11-17)
PROC: 5A1D70Z Performance of Urinary Filtration, Intermittent, Less than 6 Hours Per Day (ICD-10-PCS; 2021-11-18)
PROC: 5A1D70Z Performance of Urinary Filtration, Intermittent, Less than 6 Hours Per Day (ICD-10-PCS; 2021-11-19)
PROC: 5A1D70Z Performance of Urinary Filtration, Intermittent, Less than 6 Hours Per Day (ICD-10-PCS; 2021-11-21)
PROC: 0B113F4 Bypass Trachea to Cutaneous with Tracheostomy Device, Percutaneous Approach (ICD-10-PCS; 2021-11-22)
PROC: 0DH63UZ Insertion of Feeding Device into Stomach, Percutaneous Approach (ICD-10-PCS; 2021-11-22)
PROC: 0BJ08ZZ Inspection of Tracheobronchial Tree, Via Natural or Artificial Opening Endoscopic (ICD-10-PCS; 2021-11-22)
PROC: 5A1D70Z Performance of Urinary Filtration, Intermittent, Less than 6 Hours Per Day (ICD-10-PCS; 2021-11-22)
PROC: 5A1D70Z Performance of Urinary Filtration, Intermittent, Less than 6 Hours Per Day (ICD-10-PCS; 2021-11-23)
PROC: 5A1D70Z Performance of Urinary Filtration, Intermittent, Less than 6 Hours Per Day (ICD-10-PCS; 2021-11-25)
PROC: 5A1D70Z Performance of Urinary Filtration, Intermittent, Less than 6 Hours Per Day (ICD-10-PCS; 2021-11-26)
PROC: 5A1D70Z Performance of Urinary Filtration, Intermittent, Less than 6 Hours Per Day (ICD-10-PCS; 2021-11-28)
PROC: 5A1D70Z Performance of Urinary Filtration, Intermittent, Less than 6 Hours Per Day (ICD-10-PCS; 2021-11-30)
DX: A41.9 Sepsis, unspecified organism (principal); J96.01 Acute respiratory failure with hypoxia; J18.9 Pneumonia, unspecified organism; G93.41 Metabolic encephalopathy; I21.A1 Myocardial infarction type 2; N17.0 Acute kidney failure with tubular necrosis; E46 Unspecified protein-calorie malnutrition; Z68.45 Body mass index [BMI] 70 or greater, adult; R57.9 Shock, unspecified; Z20.822 Contact with and (suspected) exposure to COVID-19; E87.5 Hyperkalemia; E66.9 Obesity, unspecified; E66.01 Morbid (severe) obesity due to excess calories; N18.9 Chronic kidney disease, unspecified; I12.9 Hypertensive chronic kidney disease with stage 1 through stage 4 chronic kidney disease, or unspecified chronic kidney disease; E11.22 Type 2 diabetes mellitus with diabetic chronic kidney disease
CPT/HCPCS: 36415; 36600; 71045; 74018; 76536; 76705; 76770; 80048; 80053; 80061; 80074; 81001; 82140; 82550; 82553; 82570; 82803; 82962; 83036; 83550; 83735; 83880; 83970; 84100; 84132; 84300; 84478; 84484; 85007; 85025; 85027; 85610; 86850; 86900; 86901; 87070; 87076; 87086; 87186; 87205; 89050; 93005; 93306; 93308; 93321; 93325; 94002; 94003; 94640; 99292; G0378; J2354; J3490; J7120; Q0162; Q9967; C8929; J0456; J0610; J0696; J1170; J1630; J1644; J1720; J1815; J2060; J2370; J2704; J2930; J3010; J3475; J7030; J7040; J7042; P9047; U0003

== ENCOUNTER 2022-05-13 13:59 | Inpatient (IN) | payer MEDICARE ==
--- NOTE | 2022-05-13 17:32 | XRay Report ---
CHEST - 1 VIEW INDICATION: sob COMPARISON: 11/22/2021 FINDINGS: SUPPORT DEVICES: Satisfactory support device positioning. HEART: Stable cardiomediastinal silhouette. LUNGS/PLEURA: Mild interstitial edema. No appreciable effusion. ADDITIONAL FINDINGS: None. IMPRESSION: Mild interstitial edema with no effusion. Signer Name: Shaheen Gutierrez MD Signed: 05/13/2022 5:28 PM Workstation Name: [id number]
[2022-05-13 17:41] LABS: Basophils # (Auto) 0.1 K/mm3 (0.0-0.1); Basophils % (Auto) 0.7 % (0.0-1.8); Eosinophils # (Auto) 0.4 K/mm3 (0.0-0.4); Eosinophils % (Auto) 2.6 % (0.0-4.3); Hematocrit 27.7 % (35.5-45.6); Hemoglobin 8.5 gm/dl (11.8-15.2); Lymphocytes # (Auto) 2.5 K/mm3 (1.2-5.4); Lymphocytes % (Auto) 15.6 % (13.4-35.0); Mean Corpuscular HGB Conc 31 % (32-34); Mean Corpuscular Volume 88 fl (84-94); Monocytes # (Auto) 1.3 K/mm3 (0.0-0.8); Monocytes % (Auto) 8.5 % (0.0-7.3); Platelet Count 249 K/mm3 (140-440); Red Blood Count 3.16 M/mm3 (3.65-5.03); Red Cell Distribution Width 17.7 % (13.2-15.2)
[2022-05-13 18:01] LABS: Albumin 3.4 g/dL (3.9-5); Calcium 8.3 mg/dL (8.4-10.2)
--- NOTE | 2022-05-13 19:04 | Emergency Department Report ---
ED General Adult HPI - General Chief complaint: Recheck/Abnormal Lab/Rx Stated complaint: ABNORMAL LABS Time Seen by Provider: 05/13/22 14:54 Source: patient, EMS Mode of arrival: Stretcher Limitations: Physical Limitation - History of Present Illness Initial comments: 56-year-old -[place] male with a history of a trach, end-stage renal disease who gets dialyzed approximately 3 times a week patient missed dialysis 2 days ago and now having increased shortness of breath and his creatinine is elevated hence patient sent to the emergency for evaluation. -: Gradual Location: chest Radiation: non-radiation Severity scale (0 -10): 0 Improves with: none Worsens with: none Associated Symptoms: shortness of breath Treatments Prior to Arrival: none - Related Data Previous Rx's Medication Instructions Recorded Last Taken Type Aspirin 325 mg FEEDTUBE QDAY tablet 12/01/21 Unknown Rx AtorvaSTATin [Lipitor] 40 mg FEEDTUBE QHS tablet 12/01/21 Unknown Rx Famotidine [Pepcid] 20 mg FEEDTUBE QDAY tablet 12/01/21 Unknown Rx Lispro Insulin [HumaLOG] 0 unit SUB-Q Q6HR units 12/01/21 Unknown Rx Midodrine [Proamatine] 15 mg PO TID@0800,1200,1600 tablet 12/01/21 Unknown Rx QUEtiapine [SEROquel] 50 mg FEEDTUBE QHS tablet 12/01/21 Unknown Rx Sennosides Tab [Senokot] 8.6 mg FEEDTUBE Q12H tablet 12/01/21 Unknown Rx polyethylene glycoL 3350 [Miralax 17 gm PO QDAY PRN powd.pack 12/01/21 Unknown Rx 3350] Allergies Allergy/AdvReac Type Severity Reaction Status Date / Time No Known Allergies Allergy Verified 11/11/21 20:58 ED Review of Systems ROS: Stated complaint: ABNORMAL LABS Other details as noted in HPI Constitutional: no symptoms reported Eyes: denies: eye pain, eye discharge, vision change ENT: denies: ear pain, throat pain Respiratory: denies: cough, shortness of breath, wheezing Cardiovascular: denies: chest pain, palpitations Endocrine: no symptoms reported, see HPI Genitourinary: as per HPI Musculoskeletal: as per HPI Skin: as per HPI Neurological: as per HPI Psychiatric: as per HPI Hematological/Lymphatic: as per HPI ED Past Medical Hx - Past Medical History Hx Hypertension: Yes (intermittently on pressors this admission) Hx Congestive Heart Failure: No Hx Diabetes: Yes Hx Renal Disease: Yes (ARF on HD) Additional medical history: obesity, - Surgical History Additional Surgical History: Right hand surgery - Social History Smoking Status: Never Smoker Substance Use Type: None - Medications Home Medications: Home Medications Medication Instructions Recorded Confirmed Last Taken Type Aspirin 325 mg FEEDTUBE QDAY tablet 12/01/21 Unknown Rx AtorvaSTATin [Lipitor] 40 mg FEEDTUBE QHS tablet 12/01/21 Unknown Rx Famotidine [Pepcid] 20 mg FEEDTUBE QDAY tablet 12/01/21 Unknown Rx Lispro Insulin [HumaLOG] 0 unit SUB-Q Q6HR units 12/01/21 Unknown Rx Midodrine [Proamatine] 15 mg PO TID@0800,1200,1600 tablet 12/01/21 Unknown Rx QUEtiapine [SEROquel] 50 mg FEEDTUBE QHS tablet 12/01/21 Unknown Rx Sennosides Tab [Senokot] 8.6 mg FEEDTUBE Q12H tablet 12/01/21 Unknown Rx polyethylene glycoL 3350 [Miralax 17 gm PO QDAY PRN powd.pack 12/01/21 Unknown Rx 3350] ED Physical Exam - General Limitations: No Limitations, Physical Limitation General appearance: alert, in distress - Head Head exam: Present: atraumatic, normocephalic - Eye Eye exam: Present: normal appearance, PERRL Pupils: Present: normal accommodation - ENT ENT exam: Present: mucous membranes dry, other (Patient has a trach.) - Neck Neck exam: Present: normal inspection - Respiratory Respiratory exam: Present: respiratory distress, rales ED Course Vital Signs 05/13/22 05/13/22 05/13/22 14:03 14:33 14:46 Temperature 98.4 F Pulse Rate 102 H 101 H Respiratory 18 14 16 Rate Blood Pressure 138/71 Blood Pressure 156/83 [Left] O2 Sat by Pulse 100 100 Oximetry 05/13/22 05/13/22 05/13/22 15:00 15:16 15:30 Temperature Pulse Rate 99 H 101 H 98 H Respiratory 20 17 21 Rate Blood Pressure 138/71 139/80 139/80 Blood Pressure [Left] O2 Sat by Pulse 100 100 100 Oximetry 05/13/22 05/13/22 05/13/22 15:46 16:00 16:16 Temperature Pulse Rate 101 H 96 H 98 H Respiratory 18 18 19 Rate Blood Pressure 128/69 128/69 124/66 Blood Pressure [Left] O2 Sat by Pulse 100 100 100 Oximetry 05/13/22 05/13/22 05/13/22 16:30 16:46 17:00 Temperature Pulse Rate 96 H 92 H 98 H Respiratory 16 19 20 Rate Blood Pressure 124/66 124/66 Blood Pressure [Left] O2 Sat by Pulse 100 100 100 Oximetry 05/13/22 05/13/22 05/13/22 17:16 17:30 17:46 Temperature Pulse Rate 98 H 100 H 115 H Respiratory 12 13 21 Rate Blood Pressure 138/72 138/72 138/72 Blood Pressure [Left] O2 Sat by Pulse 100 100 93 Oximetry 05/13/22 05/13/22 18:00 18:10 Temperature Pulse Rate 103 H Respiratory 22 14 Rate Blood Pressure 138/72 Blood Pressure [Left] O2 Sat by Pulse 84 98 Oximetry ED Medical Decision Making - Lab Data Result diagrams: 05/13/22 17:25 05/13/22 17:25 Critical care attestation.: If time is entered above; I have spent that time in minutes in the direct care of this critically ill patient, excluding procedure time. ED Disposition Clinical Impression: End stage renal disease, SOB (shortness of breath), Pulmonary edema Disposition: ADMITTED INPATIENT Is pt being admited?: No Does the pt Need Aspirin: No Condition: Serious Instructions: Pulmonary Edema (ED) Referrals: SILVANO BENDER MD [Primary Care Provider] - 3-5 Days
--- NOTE | 2022-05-13 21:47 | History and Physical Report ---
History of Present Illness Date of examination: 05/13/22 Date of admission: 05/13/2022 Chief complaint: Increasing shortness of breath for 2 days History of present illness: 55-year-old male with end-stage renal disease and trach in place with insulin- dependent diabetes comes in for increasing shortness of breath of 2 days duration. Patient has missed 2 dialysis sessions on Sunday and Sunday. Shortness of breath on minimal exertion. No fever or chills. Orthopnea present. - Past Medical History --Hypertension: Yes (intermittently on pressors this admission) --Congestive Heart Failure: No --Diabetes: Yes --Renal Disease: Yes (ARF on HD) --Additional medical history: obesity, - Surgical History --Additional Surgical History: Right hand surgery - Social History --Smoking Status: Never Smoker --Substance Use Type: None - Family history --Htn - Medications Home Medications: Home Medications Medication Instructions Recorded Confirmed Last Taken Type Aspirin 325 mg FEEDTUBE QDAY tablet 12/01/21 Unknown Rx AtorvaSTATin [Lipitor] 40 mg FEEDTUBE QHS tablet 12/01/21 Unknown Rx Famotidine [Pepcid] 20 mg FEEDTUBE QDAY tablet 12/01/21 Unknown Rx Lispro Insulin [HumaLOG] 0 unit SUB-Q Q6HR units 12/01/21 Unknown Rx Midodrine [Proamatine] 15 mg PO TID@0800,1200,1600 tablet 12/01/21 Unknown Rx QUEtiapine [SEROquel] 50 mg FEEDTUBE QHS tablet 12/01/21 Unknown Rx Sennosides Tab [Senokot] 8.6 mg FEEDTUBE Q12H tablet 12/01/21 Unknown Rx polyethylene glycoL 3350 [Miralax 17 gm PO QDAY PRN powd.pack 12/01/21 Unknown Rx 3350] Review of Systems ROS: Stated complaint: ABNORMAL LABS Other details as noted in HPI Constitutional: no symptoms reported Eyes: denies: eye pain, eye discharge, vision change ENT: denies: ear pain, throat pain Respiratory: denies: cough, shortness of breath, wheezing Cardiovascular: denies: chest pain, palpitations Endocrine: no symptoms reported, see HPI Genitourinary: as per HPI Musculoskeletal: as per HPI Skin: as per HPI Neurological: as per HPI Psychiatric: as per HPI Hematological/Lymphatic: as per HPI Medications and Allergies Allergies Allergy/AdvReac Type Severity Reaction Status Date / Time No Known Allergies Allergy Verified 11/11/21 20:58 Home Medications Medication Instructions Recorded Confirmed Last Taken Type Aspirin 325 mg FEEDTUBE QDAY tablet 12/01/21 Unknown Rx AtorvaSTATin [Lipitor] 40 mg FEEDTUBE QHS tablet 12/01/21 Unknown Rx Famotidine [Pepcid] 20 mg FEEDTUBE QDAY tablet 12/01/21 Unknown Rx Lispro Insulin [HumaLOG] 0 unit SUB-Q Q6HR units 12/01/21 Unknown Rx Midodrine [Proamatine] 15 mg PO TID@0800,1200,1600 tablet 12/01/21 Unknown Rx QUEtiapine [SEROquel] 50 mg FEEDTUBE QHS tablet 12/01/21 Unknown Rx Sennosides Tab [Senokot] 8.6 mg FEEDTUBE Q12H tablet 12/01/21 Unknown Rx polyethylene glycoL 3350 [Miralax 17 gm PO QDAY PRN powd.pack 12/01/21 Unknown Rx 3350] Exam - Constitutional Vitals: Temp Pulse Resp BP Pulse Ox 98.4 F 103 H 14 138/72 98 05/13/22 14:03 05/13/22 18:00 05/13/22 18:10 05/13/22 18:00 05/13/22 18:10 General appearance: Present: mild distress, well-nourished - EENT Eyes: Present: PERRL ENT: hearing intact, clear oral mucosa - Neck Neck: Present: supple, normal ROM - Respiratory Respiratory effort: normal Respiratory: bilateral: CTA, rhonchi, wheezing - Cardiovascular Heart rate: 78 Rhythm: regular Heart Sounds: Present: S1 & S2. Absent: rub, click - Extremities Extremities: no ischemia, pulses intact, pulses symmetrical, No edema Peripheral Pulses: within normal limits - Abdominal General gastrointestinal: Present: soft, non-tender, non-distended, normal bowel sounds Male genitourinary: Present: normal - Integumentary Integumentary: Present: clear, warm, dry - Musculoskeletal Musculoskeletal: gait normal, strength equal bilaterally - Psychiatric Psychiatric: appropriate mood/affect, intact judgment & insight - Neurologic Neurologic: CNII-XII intact, moves all extremities HEART Score - HEART Score History: Slightly suspicious Risk factors: 1-2 risk factors Troponin: 1-3x normal limit - Critical Actions Critical Actions: 4-6 pts:12-16.6% risk of adverse cardiac event. Should be ad mitted Results - Labs CBC & Chem 7: 05/14/22 05:06 05/14/22 05:06 Labs: Laboratory Last Values WBC 15.7 K/mm3 (4.5-11.0) H 05/13/22 17:25 RBC 3.16 M/mm3 (3.65-5.03) L 05/13/22 17:25 Hgb 8.5 gm/dl (11.8-15.2) L 05/13/22 17:25 Hct 27.7 % (35.5-45.6) L 05/13/22 17:25 MCV 88 fl (84-94) 05/13/22 17:25 MCH 27 pg (28-32) L 05/13/22 17:25 MCHC 31 % (32-34) L 05/13/22 17:25 RDW 17.7 % (13.2-15.2) H 05/13/22 17:25 Plt Count 249 K/mm3 (140-440) 05/13/22 17:25 Lymph % (Auto) 15.6 % (13.4-35.0) 05/13/22 17:25 [place] % (Auto) 8.5 % (0.0-7.3) H 05/13/22 17:25 Eos % (Auto) 2.6 % (0.0-4.3) 05/13/22 17:25 Baso % (Auto) 0.7 % (0.0-1.8) 05/13/22 17:25 Lymph # (Auto) 2.5 K/mm3 (1.2-5.4) 05/13/22 17:25 [place] # (Auto) 1.3 K/mm3 (0.0-0.8) H 05/13/22 17:25 Eos # (Auto) 0.4 K/mm3 (0.0-0.4) 05/13/22 17:25 Baso # (Auto) 0.1 K/mm3 (0.0-0.1) 05/13/22 17:25 Seg Neutrophils % 72.6 % (40.0-70.0) H 05/13/22 17:25 Seg Neutrophils # 11.4 K/mm3 (1.8-7.7) H 05/13/22 17:25 Sodium 144 mmol/L (137-145) 05/13/22 17:25 Potassium 4.3 mmol/L (3.6-5.0) 05/13/22 17:25 Chloride 104.1 mmol/L (98-107) 05/13/22 17:25 Carbon Dioxide 23 mmol/L (22-30) 05/13/22 17:25 Anion Gap 21 mmol/L 05/13/22 17:25 BUN 71 mg/dL (9-20) H 05/13/22 17:25 Creatinine 9.2 mg/dL (0.8-1.3) H 05/13/22 17:25 Estimated GFR 7 ml/min 05/13/22 17:25 BUN/Creatinine Ratio 8 % 05/13/22 17:25 Glucose 87 mg/dL (75-100) 05/13/22 17:25 Calcium 8.3 mg/dL (8.4-10.2) L 05/13/22 17:25 Total Bilirubin 0.20 mg/dL (0.1-1.2) 05/13/22 17:25 AST 36 units/L (5-40) 05/13/22 17:25 ALT 36 units/L (7-56) 05/13/22 17:25 Alkaline Phosphatase 182 units/L (35-129) H 05/13/22 17:25 Total Protein 6.7 g/dL (6.3-8.2) 05/13/22 17:25 Albumin 3.4 g/dL (3.9-5) L 05/13/22 17:25 Albumin/Globulin Ratio 1.0 % 05/13/22 17:25 Short CBC 05/13/22 Range/Units 17:25 WBC 15.7 H (4.5-11.0) K/mm3 Hgb 8.5 L (11.8-15.2) gm/dl Hct 27.7 L (35.5-45.6) % Plt Count 249 (140-440) K/mm3 BMP 05/13/22 17:25 Sodium 144 Potassium 4.3 Chloride 104.1 Carbon Dioxide 23 BUN 71 H Creatinine 9.2 H Glucose 87 Calcium 8.3 L Liver Function 05/13/22 Range/Units 17:25 Total Bilirubin 0.20 (0.1-1.2) mg/dL AST 36 (5-40) units/L ALT 36 (7-56) units/L Alkaline Phosphatase 182 H (35-129) units/L Albumin 3.4 L (3.9-5) g/dL Short CBC 05/13/22 05/14/22 Range/Units 17:25 05:06 WBC 15.7 H 18.0 H (4.5-11.0) K/mm3 Hgb 8.5 L 8.5 L (11.8-15.2) gm/dl Hct 27.7 L 28.4 L (35.5-45.6) % Plt Count 249 249 (140-440) K/mm3 BMP 05/13/22 05/14/22 17:25 05:06 Sodium 144 142 Potassium 4.3 3.9 Chloride 104.1 101.4 Carbon Dioxide 23 25 BUN 71 H 49 H Creatinine 9.2 H 7.8 H Glucose 87 91 Calcium 8.3 L 8.3 L Liver Function 05/13/22 05/14/22 Range/Units 17:25 05:06 Total Bilirubin 0.20 0.30 (0.1-1.2) mg/dL AST 36 34 (5-40) units/L ALT 36 37 (7-56) units/L Alkaline Phosphatase 182 H 158 H (35-129) units/L Albumin 3.4 L 3.0 L (3.9-5) g/dL - Imaging and Cardiology EKG: report reviewed (Sinus rhythm, no acute ST-T wave changes) Chest x-ray: report reviewed Imaging and Cardiology: Chest x-ray Mild interstitial edema with no effusion Assessment and Plan Advance Directives: Yes (Full code) VTE prophylaxis?: Chemical Plan of care discussed with patient/family: Yes - Patient Problems (1) Acute respiratory failure with hypoxia Current Visit: Yes Status: Acute Plan to address problem: Patient is on 3 L nasal cannula oxygen Hypoxic at the time of admission No home oxygen (2) Volume overload Current Visit: Yes Status: Acute Plan to address problem: Patient for emergent hemodialysis Nephrology consult (3) ESRD (end stage renal disease) on dialysis Current Visit: Yes Status: Chronic Plan to address problem: Continue hemodialysis as per schedule and emergent hemodialysis today Nephrology consulted (4) IDDM (insulin dependent diabetes mellitus) Current Visit: Yes Status: Chronic Plan to address problem: Continue home insulin and coverage Check hemoglobin A1c (5) Bipolar disorder Current Visit: Yes Status: Chronic Qualifiers: Active/Remission status: in full remission Plan to address problem: Continue Seroquel (6) GERD (gastroesophageal reflux disease) Current Visit: Yes Status: Chronic Qualifiers: Esophagitis presence: without esophagitis Qualified Code(s): K21.9 - Gastro-esophageal reflux disease without esophagitis Plan to address problem: Continue PPI (7) DVT prophylaxis Current Visit: Yes Status: Acute Plan to address problem: On heparin and GI prophylaxis (8) Advance care planning Current Visit: Yes Status: Acute Plan to address problem: Disease education conducted, care plan discussed: Diagnosis and prognosis discussed. Patient is full code. Patient acknowledges understanding of the care plan. +30 minutes.
[2022-05-13] MEDS ORDERED: POLYETHYLENE GLYCOL 3350 17 GM POWDER PO PRN (21:53)
[2022-05-13] MEDS ORDERED: FAMOTIDINE 20 MG TAB FEEDTUBE SCH (22:00)
[2022-05-13] MEDS ORDERED: METOCLOPRAMIDE 10 MG/2 ML INJ IV PRN ×2 (22:05→22:26)
[2022-05-13] MEDS ORDERED: ACETAMINOPHEN 325 MG TAB PO PRN (22:05)
[2022-05-13] MEDS ORDERED: MORPHINE 2 MG/1 ML INJ IV PRN (22:05)
[2022-05-13] MEDS ORDERED: ONDANSETRON 4 MG/2 ML INJ IV PRN (22:05)
[2022-05-13 22:22] LABS: Hepatitis B Surface Antigen Non-Reactive (Negative); Hepatitis C Virus Antibody Non-Reactive (NonReactive)
[2022-05-13] MEDS: MIDODRINE 5 MG TAB PO SCH (23:52)
[2022-05-14] MEDS: INSULIN LISPRO 100 UNIT/ML SUB-Q SCH ×4 (01:05→17:33)
[2022-05-14 05:52] LABS: Calcium 8.3 mg/dL (8.4-10.2)
[2022-05-14 05:55] LABS: Basophils # (Auto) 0.1 K/mm3 (0.0-0.1); Basophils % (Auto) 0.5 % (0.0-1.8); Eosinophils # (Auto) 0.5 K/mm3 (0.0-0.4); Eosinophils % (Auto) 2.7 % (0.0-4.3); Hematocrit 28.4 % (35.5-45.6); Hemoglobin 8.5 gm/dl (11.8-15.2); Lymphocytes # (Auto) 2.8 K/mm3 (1.2-5.4); Lymphocytes % (Auto) 15.6 % (13.4-35.0); Mean Corpuscular HGB Conc 30 % (32-34); Mean Corpuscular Volume 88 fl (84-94); Monocytes # (Auto) 1.6 K/mm3 (0.0-0.8); Monocytes % (Auto) 9.1 % (0.0-7.3); Platelet Count 249 K/mm3 (140-440); Red Blood Count 3.24 M/mm3 (3.65-5.03); Red Cell Distribution Width 17.6 % (13.2-15.2)
[2022-05-14] MEDS: QUEtiapine 25 MG TAB FEEDTUBE SCH ×2 (08:11→21:40)
[2022-05-14] MEDS: SENNOSIDES 8.6 MG TAB FEEDTUBE SCH ×3 (08:11→21:40)
[2022-05-14] MEDS: HEPARIN 5,000 UNIT/1 ML VIAL SUB-Q SCH ×3 (08:11→21:41)
[2022-05-14] MEDS: ASPIRIN 325 MG TAB FEEDTUBE SCH ×2 (08:11→09:22)
[2022-05-14] MEDS: FAMOTIDINE 10 MG TAB PO SCH ×2 (09:22→21:40)
[2022-05-14] MEDS: MIDODRINE 5 MG TAB PO SCH ×3 (09:22→17:50)
--- NOTE | 2022-05-14 09:27 | Consultation ---
History of Present Illness - Reason for Consult Consult date: 05/14/22 end stage renal disease - History of Present Illness The patient is a 56 year old male with ESRD on HD, last TX appears to be Sunday, he was admitted yesterday for worsening of SOB, He was found to have pulm edema onCXR and renal consult was requested for ESRD management Past History Past Medical History: ESRD, hypertension Medications and Allergies Allergies Allergy/AdvReac Type Severity Reaction Status Date / Time No Known Allergies Allergy Verified 11/11/21 20:58 Home Medications Medication Instructions Recorded Confirmed Last Taken Type Aspirin 325 mg FEEDTUBE QDAY tablet 12/01/21 Unknown Rx AtorvaSTATin [Lipitor] 40 mg FEEDTUBE QHS tablet 12/01/21 Unknown Rx Famotidine [Pepcid] 20 mg FEEDTUBE QDAY tablet 12/01/21 Unknown Rx Lispro Insulin [HumaLOG] 0 unit SUB-Q Q6HR units 12/01/21 Unknown Rx Midodrine [Proamatine] 15 mg PO TID@0800,1200,1600 tablet 12/01/21 Unknown Rx QUEtiapine [SEROquel] 50 mg FEEDTUBE QHS tablet 12/01/21 Unknown Rx Sennosides Tab [Senokot] 8.6 mg FEEDTUBE Q12H tablet 12/01/21 Unknown Rx polyethylene glycoL 3350 [Miralax 17 gm PO QDAY PRN powd.pack 12/01/21 Unknown Rx 3350] Active Meds: Active Medications Acetaminophen (Acetaminophen 325 Mg Tab) 650 mg PO Q4H PRN PRN Reason: Pain MILD(1-3)/Fever >100.5/SOTO Aspirin (Aspirin 325 Mg Tab) 325 mg FEEDTUBE QDAY [facility] Last Admin: 05/14/22 09:22 Dose: 325 mg Atorvastatin Calcium (Atorvastatin 40 Mg Tab) 40 mg FEEDTUBE QHS [facility] Last Admin: 05/14/22 08:11 Dose: Not Given Famotidine (Famotidine 10 Mg Tab) 10 mg PO BID [facility] Last Admin: 05/14/22 09:22 Dose: 10 mg Heparin Sodium (Porcine) (Heparin 5,000 Unit/1 Ml Vial) 5,000 unit SUB-Q Q12HR [facility] Last Admin: 05/14/22 09:22 Dose: 5,000 unit Insulin Human Lispro (Insulin Lispro 100 Unit/Ml) 0 unit SUB-Q Q6HR [facility]; Protocol Last Admin: 05/14/22 06:45 Dose: Not Given Metoclopramide HCl (Metoclopramide 10 Mg/2 Ml Inj) 5 mg IV Q6H PRN PRN Reason: Nausea And Vomiting Midodrine (Midodrine 5 Mg Tab) 15 mg PO TID@0800,1200,1600 [facility] Last Admin: 05/14/22 09:22 Dose: 15 mg Morphine Sulfate (Morphine 2 Mg/1 Ml Inj) 2 mg IV Q4H PRN PRN Reason: Pain, Moderate (4-6) Ondansetron HCl (Ondansetron 4 Mg/2 Ml Inj) 4 mg IV Q8H PRN PRN Reason: Nausea And Vomiting Polyethylene Glycol (Polyethylene Glycol 3350 17 Gm Powder) 17 gm PO QDAY PRN PRN Reason: Constip unreliev by MOM/or NPO Quetiapine Fumarate (Quetiapine 25 Mg Tab) 50 mg FEEDTUBE QHS [facility] Last Admin: 05/14/22 08:11 Dose: Not Given Senna (Sennosides 8.6 Mg Tab) 8.6 mg FEEDTUBE Q12H [facility] Last Admin: 05/14/22 09:22 Dose: Not Given Sodium Chloride (Sodium Chloride 0.9% 10 Ml Flush Syringe) 10 ml IV BID [facility] Last Admin: 05/14/22 09:22 Dose: 10 ml Sodium Chloride (Sodium Chloride 0.9% 10 Ml Flush Syringe) 10 ml IV PRN PRN PRN Reason: LINE FLUSH Review of Systems All systems: negative (SOB) Exam - Vital Signs Vital signs: Vital Signs Temp Pulse Resp BP Pulse Ox 98.4 F 102 H 18 156/83 100 05/13/22 14:03 05/13/22 14:03 05/13/22 14:03 05/13/22 14:03 05/13/22 14:03 - General Appearance General appearance: well-developed EENT: ATNC, PERRL, mucous membranes dry Neck: Present: neck supple Respiratory: Clear to Ascultation, Decreased Breath Sounds Heart: regular, S1S2 Gastrointestinal: Present: normoactive bowel sounds Integumentary: no rash, warm and dry Neurologic: no focal deficit Musculoskeletal: Present: other (edema in BLE) Psychiatric: cooperative Results - Lab Results 05/14/22 05:06 05/14/22 05:06 Most recent lab results Calcium 8.3 mg/dL (8.4-10.2) L 05/14/22 05:06 Assessment and Plan ESRD on HD Anemia in CKD HTN Pulm edema S/P HD yesterday for clearance volume removal No indication for HD today will assess dialysis needs daily ANISA with HD Renally dose meds Strict I&O Daily weight
--- NOTE | 2022-05-14 10:56 | Electrocardiograph Report ---
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
[2022-05-15] MEDS: INSULIN LISPRO 100 UNIT/ML SUB-Q SCH ×4 (02:18→19:02)
--- NOTE | 2022-05-15 07:05 | Progress Note ---
Assessment and Plan - Patient Problems (1) Acute respiratory failure with hypoxia Current Visit: Yes Status: Acute Plan to address problem: Patient is on 3 L nasal cannula oxygen Hypoxic at the time of admission No home oxygen (2) Volume overload Current Visit: Yes Status: Acute Plan to address problem: Patient for emergent hemodialysis Nephrology consult (3) ESRD (end stage renal disease) on dialysis Current Visit: Yes Status: Chronic Plan to address problem: Continue hemodialysis as per schedule and emergent hemodialysis today Nephrology consulted (4) IDDM (insulin dependent diabetes mellitus) Current Visit: Yes Status: Chronic Plan to address problem: Continue home insulin and coverage Check hemoglobin A1c (5) Bipolar disorder Current Visit: Yes Status: Chronic Qualifiers: Active/Remission status: in full remission Plan to address problem: Continue Seroquel (6) GERD (gastroesophageal reflux disease) Current Visit: Yes Status: Chronic Qualifiers: Esophagitis presence: without esophagitis Qualified Code(s): K21.9 - Gastro-esophageal reflux disease without esophagitis Plan to address problem: Continue PPI (7) DVT prophylaxis Current Visit: Yes Status: Acute Plan to address problem: On heparin and GI prophylaxis (8) Advance care planning Current Visit: Yes Status: Acute Plan to address problem: Disease education conducted, care plan discussed: Diagnosis and prognosis di scussed. Patient is full code. Patient acknowledges understanding of the care plan. +30 minutes. Subjective Date of service: 05/14/22 Principal diagnosis: Volume overload and pulmonary edema Interval history: 55-year-old male with end-stage renal disease and trach in place with insulin- dependent diabetes comes in for increasing shortness of breath of 2 days duration. Patient has missed 2 dialysis sessions on Sunday and Sunday. Shortness of breath on minimal exertion. No fever or chills. Orthopnea present. 05/14/2022 Shortness of breath versus Needs 1 more hemodialysis treatment Objective - Constitutional Vitals: Vital Signs - 12hr 05/14/22 05/14/22 05/14/22 19:37 20:05 20:37 Temperature 97.7 F Pulse Rate 74 76 Respiratory 20 Rate Blood Pressure 133/69 O2 Sat by Pulse 100 96 Oximetry 05/14/22 05/15/22 23:56 04:27 Temperature 98.5 F 97.4 F L Pulse Rate 88 83 Respiratory 20 20 Rate Blood Pressure 144/67 139/66 O2 Sat by Pulse 100 89 Oximetry General appearance: Present: no acute distress, well-nourished - EENT Eyes: PERRL, EOM intact ENT: hearing intact, clear oral mucosa Ears: bilateral: normal - Neck Neck: supple, normal ROM - Respiratory Respiratory effort: normal Respiratory: bilateral: CTA - Breasts Breasts: normal - Cardiovascular Heart rate: 78 Rhythm: regular Heart Sounds: Present: S1 & S2. Absent: gallop, rub Extremities: pulses intact, No edema, normal color, Full ROM - Gastrointestinal General gastrointestinal: Present: soft, non-tender, non-distended, normal bowel sounds - Genitourinary Male genitourinary: normal - Integumentary Integumentary: clear, warm, dry - Musculoskeletal Musculoskeletal: 1, strength equal bilaterally - Neurologic Neurologic: moves all extremities - Psychiatric Psychiatric: memory intact, appropriate mood/affect, intact judgment & insight - Labs CBC & Chem 7: 05/14/22 05:06 05/16/22 04:46 Labs: Abnormal lab results 05/14/22 Range/Units 15:38 POC Glucose 108 H (70-105) mg/dL HEART Score - HEART Score Risk factors: 1-2 risk factors Troponin: 1-3x normal limit - Critical Actions Critical Actions: 4-6 pts:12-16.6% risk of adverse cardiac event. Should be admitted
[2022-05-15] MEDS: FAMOTIDINE 10 MG TAB PO SCH ×2 (09:08→22:58)
[2022-05-15] MEDS: ASPIRIN 325 MG TAB FEEDTUBE SCH (09:08)
[2022-05-15] MEDS: MIDODRINE 5 MG TAB PO SCH ×3 (09:08→16:51)
[2022-05-15] MEDS: HEPARIN 5,000 UNIT/1 ML VIAL SUB-Q SCH ×2 (09:08→22:58)
[2022-05-15] MEDS: SENNOSIDES 8.6 MG TAB FEEDTUBE SCH ×2 (09:13→22:58)
--- NOTE | 2022-05-15 13:56 | Progress Note ---
Assessment and Plan Assessment: ESRD on Hemodialysis Anemia in CKD Hypertension Pulmonary edema Plan: Hemodialysis today for UF and clearance Fluid restriction of 1 liter per day Renally dose medications Strict I&O's daily Obtain daily weights Assess dialysis needs daily Plan of care reviewed by Dr. Ya Subjective Date of service: 05/15/22 Principal diagnosis: ESRD Interval history: Patient seen lying in bed. Sister at bedside. Objective - Vital Signs Vital signs: Vital Signs - 12hr 05/15/22 05/15/22 05/15/22 04:27 07:20 08:03 Temperature 97.4 F L 98.6 F Pulse Rate 83 94 H Respiratory 20 18 Rate Blood Pressure 139/66 122/71 O2 Sat by Pulse 89 100 100 Oximetry O2 Sat by Pulse 100 Oximetry [ Assessment] 05/15/22 10:00 Temperature Pulse Rate Respiratory 18 Rate Blood Pressure O2 Sat by Pulse 96 Oximetry O2 Sat by Pulse Oximetry [ Assessment] - General Appearance General appearance: well-developed, appears stated age, obese EENT: ATNC Neck: no JVD, supple Respiratory: Present: Decreased Breath Sounds, Other (has trach that is capped) Cardiology: S1S2 Gastrointestinal: normoactive bowel sounds Integumentary: warm and dry Neurologic: alert and oriented x3 Musculoskeletal: joint swelling, decreased ROM - Lab 05/14/22 05:06 05/14/22 05:06 Most recent lab results Calcium 8.3 mg/dL (8.4-10.2) L 05/14/22 05:06 Medications & Allergies - Medications Allergies/Adverse Reactions: Allergies No Known Allergies Allergy (Verified 11/11/21 20:58) Home Medications: Home Medications Medication Instructions Recorded Confirmed Last Taken Type Aspirin 325 mg FEEDTUBE QDAY tablet 12/01/21 Unknown Rx AtorvaSTATin [Lipitor] 40 mg FEEDTUBE QHS tablet 12/01/21 Unknown Rx Famotidine [Pepcid] 20 mg FEEDTUBE QDAY tablet 12/01/21 Unknown Rx Lispro Insulin [HumaLOG] 0 unit SUB-Q Q6HR units 12/01/21 Unknown Rx Midodrine [Proamatine] 15 mg PO TID@0800,1200,1600 tablet 12/01/21 Unknown Rx QUEtiapine [SEROquel] 50 mg FEEDTUBE QHS tablet 12/01/21 Unknown Rx Sennosides Tab [Senokot] 8.6 mg FEEDTUBE Q12H tablet 12/01/21 Unknown Rx polyethylene glycoL 3350 [Miralax 17 gm PO QDAY PRN powd.pack 12/01/21 Unknown Rx 3350] Active Medications: Generic Name Dose Route Start Last Admin Trade Name Freq PRN Reason Stop Dose Admin Acetaminophen 650 mg 05/13/22 22:05 Acetaminophen 325 Mg Tab PO Q4H PRN Pain MILD(1-3)/Fever >100.5/SOTO Aspirin 325 mg 05/13/22 22:00 05/15/22 09:08 Aspirin 325 Mg Tab FEEDTUBE 325 mg QDAY [facility]O Administration Atorvastatin Calcium 40 mg 05/13/22 22:00 05/14/22 21:40 Atorvastatin 40 Mg Tab FEEDTUBE 40 mg QHS [facility]O Administration Famotidine 10 mg 05/14/22 10:00 05/15/22 09:08 Famotidine 10 Mg Tab PO 10 mg BID [facility]O Administration Heparin Sodium (Porcine) 5,000 unit 05/13/22 22:15 05/15/22 09:08 Heparin 5,000 Unit/1 Ml Vial SUB-Q 5,000 unit Q12HR [facility] Administration Insulin Human Lispro 0 unit 05/14/22 00:00 05/15/22 12:27 Insulin Lispro 100 Unit/Ml SUB-Q Not Given Q6HR [facility] Protocol Metoclopramide HCl 5 mg 05/13/22 22:26 Metoclopramide 10 Mg/2 Ml Inj IV Q6H PRN Nausea And Vomiting Midodrine 15 mg 05/14/22 08:00 05/15/22 12:24 Midodrine 5 Mg Tab PO 15 mg TID@0800,1200,1600 [facility]O Administration Morphine Sulfate 2 mg 05/13/22 22:05 Morphine 2 Mg/1 Ml Inj IV Q4H PRN Pain, Moderate (4-6) Ondansetron HCl 4 mg 05/13/22 22:05 Ondansetron 4 Mg/2 Ml Inj IV Q8H PRN Nausea And Vomiting Polyethylene Glycol 17 gm 05/13/22 21:53 Polyethylene Glycol 3350 17 Gm Powder PO QDAY PRN Constip unreliev by MOM/or NPO Quetiapine Fumarate 50 mg 05/13/22 22:00 05/14/22 21:40 Quetiapine 25 Mg Tab FEEDTUBE 50 mg QHS [facility] Administration Senna 8.6 mg 05/13/22 22:00 05/15/22 09:13 Sennosides 8.6 Mg Tab FEEDTUBE Not Given Q12H [facility]O Sodium Chloride 10 ml 05/14/22 10:00 05/15/22 12:26 Sodium Chloride 0.9% 10 Ml Flush Syringe IV 10 ml BID [facility]O Administration Sodium Chloride 10 ml 05/13/22 22:05 Sodium Chloride 0.9% 10 Ml Flush Syringe IV PRN PRN LINE FLUSH
--- NOTE | 2022-05-15 17:39 | Discharge Summary ---
Providers - Providers Date of Admission: 05/13/22 22:05 Date of discharge: 05/16/22 Attending physician: DARIEL GILLIS 05/13/22 22:20 Consult to Physician [CONS] Routine Comment: Consulting Provider: JANESSA CASAS Physician Instructions: Reason For Exam: ESRD/Volume overload 05/15/22 11:46 Occupational Therapy Evaluate and Treat [CONS] Routine Comment: OT eval and treat Reason For Exam: debility Physical Therapy Evaluation and Treat [CONS] Routine Comment: PT eval and treat Reason For Exam: debility Primary care physician: SILVANO BENDER Hospitalization Condition: Serious Hospital course: Subjective Date of service: 05/16/22 Principal diagnosis: ESRD and pulmonary edema Interval history: 55-year-old male with end-stage renal disease and trach in place with insulin- dependent diabetes comes in for increasing shortness of breath of 2 days du ration. Patient has missed 2 dialysis sessions on Sunday and Sunday. Shortness of breath on minimal exertion. No fever or chills. Orthopnea present. 05/14/2022 Shortness of breath versus Needs 1 more hemodialysis treatment 05/15/2022 Undergoing hemodialysis For discharge in a.m. 05/16/2022 For discharge today Assessment and Plan Improved - Patient Problems (1) Acute respiratory failure with hypoxia Current Visit: Yes Status: Acute Plan to address problem: Patient is on 3 L nasal cannula oxygen Hypoxic at the time of admission No home oxygen (2) Volume overload Current Visit: Yes Status: Acute Plan to address problem: Patient is undergoing second dialysis treatment (3) ESRD (end stage renal disease) on dialysis Current Visit: Yes Status: Chronic Plan to address problem: Continue hemodialysis as per schedule and emergent hemodialysis today Nephrology consulted (4) IDDM (insulin dependent diabetes mellitus) Current Visit: Yes Status: Chronic Plan to address problem: Continue home insulin and coverage Check hemoglobin A1c (5) Bipolar disorder Current Visit: Yes Status: Chronic Qualifiers: Active/Remission status: in full remission Plan to address problem: Continue Seroquel (6) GERD (gastroesophageal reflux disease) Current Visit: Yes Status: Chronic Qualifiers: Esophagitis presence: without esophagitis Qualified Code(s): K21.9 - Gastro-esophageal reflux disease without esophagitis Plan to address problem: Continue PPI (7) DVT prophylaxis Current Visit: Yes Status: Acute Plan to address problem: On heparin and GI prophylaxis (8) Advance care planning Current Visit: Yes Status: Acute Plan to address problem: Disease education conducted, care plan discussed: Diagnosis and prognosis discussed. Patient is full code. Patient acknowledges understanding of the care plan. +30 minutes. Open b Disposition: 04 [facility] Final Discharge Diagnosis (Prints w/discharge instructions): Acute respiratory failure with hypoxia. Pulmonary edema. Volume overload. End-stage renal disease needing dialysis next line IDDM. Bipolar disorder. GERD. Morbid obesity Time spent for discharge: 35 minutes - Discharge Diagnoses (1) Acute respiratory failure with hypoxia Status: Acute (2) Volume overload Status: Acute (3) ESRD (end stage renal disease) on dialysis Status: Chronic (4) IDDM (insulin dependent diabetes mellitus) Status: Chronic (5) Bipolar disorder Status: Chronic Qualifiers: Active/Remission status: in full remission (6) GERD (gastroesophageal reflux disease) Status: Chronic Qualifiers: Esophagitis presence: without esophagitis Qualified Code(s): K21.9 - Gastro-esophageal reflux disease without esophagitis (7) DVT prophylaxis Status: Acute (8) Advance care planning Status: Acute Core Measure Documentation - Palliative Care Palliative Care/ Comfort Measures: Not Applicable - Core Measures Any of the following diagnoses?: none Exam - Constitutional Vitals: Temp Pulse Resp BP Pulse Ox 98.0 F 94 H 18 130/79 96 05/15/22 15:18 05/15/22 09:00 05/15/22 15:18 05/15/22 15:18 05/15/22 10:00 General appearance: Present: no acute distress, well-nourished - EENT Eyes: Present: PERRL ENT: hearing intact, clear oral mucosa - Neck Neck: Present: supple, normal ROM - Respiratory Respiratory effort: normal Respiratory: bilateral: CTA - Cardiovascular Heart rate: 78 Rhythm: regular Heart Sounds: Present: S1 & S2. Absent: rub, click - Extremities Extremities: pulses symmetrical, No edema Peripheral Pulses: within normal limits - Abdominal General gastrointestinal: Present: soft, non-tender, non-distended, normal bowel sounds Male genitourinary: Present: normal - Integumentary Integumentary: Present: clear, warm, dry - Musculoskeletal Musculoskeletal: gait normal, strength equal bilaterally - Psychiatric Psychiatric: appropriate mood/affect, intact judgment & insight - Neurologic Neurologic: CNII-XII intact, moves all extremities Plan Activity: no restrictions Diet: renal Follow up with: SILVANO BENDER MD [Primary Care Provider] - 3-5 Days
--- NOTE | 2022-05-15 20:34 | Progress Note ---
Assessment and Plan Improved - Patient Problems (1) Acute respiratory failure with hypoxia Current Visit: Yes Status: Acute Plan to address problem: Patient is on 3 L nasal cannula oxygen Hypoxic at the time of admission No home oxygen (2) Volume overload Current Visit: Yes Status: Acute Plan to address problem: Patient is undergoing second dialysis treatment (3) ESRD (end stage renal disease) on dialysis Current Visit: Yes Status: Chronic Plan to address problem: Continue hemodialysis as per schedule and emergent hemodialysis today Nephrology consulted (4) IDDM (insulin dependent diabetes mellitus) Current Visit: Yes Status: Chronic Plan to address problem: Continue home insulin and coverage Check hemoglobin A1c (5) Bipolar disorder Current Visit: Yes Status: Chronic Qualifiers: Active/Remission status: in full remission Plan to address problem: Continue Seroquel (6) GERD (gastroesophageal reflux disease) Current Visit: Yes Status: Chronic Qualifiers: Esophagitis presence: without esophagitis Qualified Code(s): K21.9 - Gastro-esophageal reflux disease without esophagitis Plan to address problem: Continue PPI (7) DVT prophylaxis Current Visit: Yes Status: Acute Plan to address problem: On heparin and GI prophylaxis (8) Advance care planning Current Visit: Yes Status: Acute Plan to address problem: Disease education conducted, care plan discussed: Diagnosis and prognosis discussed. Patient is full code. Patient acknowledges understanding of the care plan. +30 minutes. Subjective Date of service: 05/15/22 Principal diagnosis: ESRD and pulmonary edema Interval history: 55-year-old male with end-stage renal disease and trach in place with insulin- dependent diabetes comes in for increasing shortness of breath of 2 days duration. Patient has missed 2 dialysis sessions on Sunday and Sunday. Shortness of breath on minimal exertion. No fever or chills. Orthopnea pr esent. 05/14/2022 Shortness of breath versus Needs 1 more hemodialysis treatment 05/15/2022 Undergoing hemodialysis For discharge in a.m. Objective - Constitutional Vitals: Vital Signs - 12hr 05/15/22 05/15/22 05/15/22 09:00 10:00 15:18 Temperature 98.0 F Pulse Rate 94 H Respiratory 18 18 Rate Blood Pressure 130/79 O2 Sat by Pulse 96 Oximetry O2 Sat by Pulse Oximetry [ Anterior Bilateral] 05/15/22 05/15/22 05/15/22 17:00 17:15 17:30 Temperature 97.7 F Pulse Rate 90 89 81 Respiratory 20 Rate Blood Pressure 128/68 104/52 133/68 O2 Sat by Pulse Oximetry O2 Sat by Pulse 100 Oximetry [ Anterior Bilateral] 05/15/22 05/15/22 05/15/22 17:45 18:00 18:15 Temperature Pulse Rate 81 79 84 Respiratory Rate Blood Pressure 127/70 124/59 96/51 O2 Sat by Pulse Oximetry O2 Sat by Pulse Oximetry [ Anterior Bilateral] 05/15/22 05/15/22 05/15/22 18:30 18:45 19:00 Temperature Pulse Rate 86 86 80 Respiratory Rate Blood Pressure 97/46 113/59 107/54 O2 Sat by Pulse Oximetry O2 Sat by Pulse Oximetry [ Anterior Bilateral] 05/15/22 19:15 Temperature Pulse Rate 81 Respiratory Rate Blood Pressure 116/67 O2 Sat by Pulse Oximetry O2 Sat by Pulse Oximetry [ Anterior Bilateral] General appearance: Present: no acute distress, well-nourished - EENT Eyes: PERRL, EOM intact ENT: hearing intact, clear oral mucosa Ears: bilateral: normal - Neck Neck: supple, normal ROM - Respiratory Respiratory effort: normal Respiratory: bilateral: CTA - Breasts Breasts: normal - Cardiovascular Rhythm: regular Heart Sounds: Present: S1 & S2. Absent: gallop, rub Extremities: pulses intact, No edema, normal color, Full ROM - Gastrointestinal General gastrointestinal: Present: soft, non-tender, non-distended, normal bowel sounds - Genitourinary Male genitourinary: normal - Integumentary Integumentary: clear, warm, dry - Musculoskeletal Musculoskeletal: 1, strength equal bilaterally - Neurologic Neurologic: moves all extremities - Psychiatric Psychiatric: memory intact, appropriate mood/affect, intact judgment & insight - Labs CBC & Chem 7: 05/14/22 05:06 05/16/22 04:46 Labs: Abnormal lab results 05/15/22 05/15/22 Range/Units 11:15 15:16 POC Glucose 126 H 108 H (70-105) mg/dL HEART Score - HEART Score Risk factors: 1-2 risk factors Troponin: 1-3x normal limit - Critical Actions Critical Actions: 4-6 pts:12-16.6% risk of adverse cardiac event. Should be admitted
[2022-05-15] MEDS: QUEtiapine 25 MG TAB FEEDTUBE SCH (22:58)
[2022-05-16] MEDS: INSULIN LISPRO 100 UNIT/ML SUB-Q SCH ×3 (03:21→12:47)
[2022-05-16 05:19] LABS: Calcium 7.9 mg/dL (8.4-10.2)
--- NOTE | 2022-05-16 09:08 | Progress Note ---
Assessment and Plan ESRD on Hemodialysis Anemia in CKD Hypertension Pulmonary edema Plan: no indication for HD today Fluid restriction of 1 liter per day Renally dose medications Strict I&O's daily Obtain daily weights Assess dialysis needs daily Subjective Date of service: 05/16/22 Principal diagnosis: ESRD and pulmonary edema Interval history: tolerated HD Objective - Vital Signs Vital signs: Vital Signs - 12hr 05/15/22 05/15/22 05/15/22 21:25 22:00 23:41 Temperature 98.2 F Pulse Rate 86 101 H Respiratory 20 Rate Blood Pressure 137/72 O2 Sat by Pulse 100 99 Oximetry O2 Sat by Pulse 100 Oximetry [ Anterior Bilateral] O2 Sat by Pulse Oximetry [ Assessment] 05/15/22 05/15/22 05/16/22 23:57 23:59 00:00 Temperature 98.5 F Pulse Rate 93 H Respiratory 18 Rate Blood Pressure 123/75 O2 Sat by Pulse 95 99 Oximetry O2 Sat by Pulse Oximetry [ Anterior Bilateral] O2 Sat by Pulse 99 Oximetry [ Assessment] 05/16/22 05/16/22 05:10 07:00 Temperature 98.4 F Pulse Rate 91 H Respiratory 20 Rate Blood Pressure 113/64 O2 Sat by Pulse 94 Oximetry O2 Sat by Pulse Oximetry [ Anterior Bilateral] O2 Sat by Pulse 100 Oximetry [ Assessment] - Lab 05/14/22 05:06 05/16/22 04:46 Most recent lab results Calcium 7.9 mg/dL (8.4-10.2) L 05/16/22 04:46 Medications & Allergies - Medications Allergies/Adverse Reactions: Allergies No Known Allergies Allergy (Verified 11/11/21 20:58) Home Medications: Home Medications Medication Instructions Recorded Confirmed Last Taken Type AtorvaSTATin [Lipitor] 40 mg FEEDTUBE QHS tablet 12/01/21 Unknown Rx Famotidine [Pepcid] 20 mg FEEDTUBE QDAY tablet 12/01/21 Unknown Rx Sennosides Tab [Senokot] 8.6 mg FEEDTUBE Q12H tablet 12/01/21 Unknown Rx Aspirin 325 mg FEEDTUBE QDAY tablet 05/16/22 Unknown Rx Insulin Glargine,Hum.rec.anlog 10 unit SQ QHS #1 vial 05/16/22 Unknown Rx [Lantus Solostar] Lispro Insulin [HumaLOG] 6 unit SUB-Q AC #1 vial 05/16/22 Unknown Rx Midodrine [Proamatine] 15 mg PO TID@0800,1200,1600 tablet 05/16/22 Unknown Rx QUEtiapine [SEROquel] 50 mg FEEDTUBE QHS tablet 05/16/22 Unknown Rx polyethylene glycoL 3350 [Miralax 17 gm PO QDAY PRN powd.pack 05/16/22 Unknown Rx 3350] Active Medications: Generic Name Dose Route Start Last Admin Trade Name Freq PRN Reason Stop Dose Admin Acetaminophen 650 mg 05/13/22 22:05 Acetaminophen 325 Mg Tab PO Q4H PRN Pain MILD(1-3)/Fever >100.5/SOTO Aspirin 325 mg 05/13/22 22:00 05/15/22 09:08 Aspirin 325 Mg Tab FEEDTUBE 325 mg QDAY BAO Administration Atorvastatin Calcium 40 mg 05/15/22 22:45 05/15/22 23:01 Atorvastatin 20 Mg Tab FEEDTUBE 40 mg QHS BAO Administration Famotidine 10 mg 05/14/22 10:00 05/15/22 22:58 Famotidine 10 Mg Tab PO 10 mg BID BAO Administration Heparin Sodium (Porcine) 5,000 unit 05/13/22 22:15 05/15/22 22:58 Heparin 5,000 Unit/1 Ml Vial SUB-Q 5,000 unit Q12HR BAO Administration Insulin Human Lispro 0 unit 05/14/22 00:00 05/16/22 06:22 Insulin Lispro 100 Unit/Ml SUB-Q Not Given Q6HR [facility] Protocol Metoclopramide HCl 5 mg 05/13/22 22:26 Metoclopramide 10 Mg/2 Ml Inj IV Q6H PRN Nausea And Vomiting Midodrine 15 mg 05/14/22 08:00 05/15/22 16:51 Midodrine 5 Mg Tab PO Not Given TID@0800,1200,1600 [facility] Morphine Sulfate 2 mg 05/13/22 22:05 Morphine 2 Mg/1 Ml Inj IV Q4H PRN Pain, Moderate (4-6) Ondansetron HCl 4 mg 05/13/22 22:05 Ondansetron 4 Mg/2 Ml Inj IV Q8H PRN Nausea And Vomiting Polyethylene Glycol 17 gm 05/13/22 21:53 Polyethylene Glycol 3350 17 Gm Powder PO QDAY PRN Constip unreliev by MOM/or NPO Quetiapine Fumarate 50 mg 05/13/22 22:00 05/15/22 22:58 Quetiapine 25 Mg Tab FEEDTUBE 50 mg QHS BAO Administration Senna 8.6 mg 05/13/22 22:00 05/15/22 22:58 Sennosides 8.6 Mg Tab FEEDTUBE Not Given Q12H BAO Sodium Chloride 10 ml 05/14/22 10:00 05/15/22 22:58 Sodium Chloride 0.9% 10 Ml Flush Syringe IV 10 ml BID BAO Administration Sodium Chloride 10 ml 05/13/22 22:05 Sodium Chloride 0.9% 10 Ml Flush Syringe IV PRN PRN LINE FLUSH
[2022-05-16] MEDS: ASPIRIN 325 MG TAB FEEDTUBE SCH (10:08)
[2022-05-16] MEDS: MIDODRINE 5 MG TAB PO SCH ×2 (10:09→12:47)
[2022-05-16] MEDS: SENNOSIDES 8.6 MG TAB FEEDTUBE SCH (10:09)
[2022-05-16] MEDS: HEPARIN 5,000 UNIT/1 ML VIAL SUB-Q SCH (10:09)
[2022-05-16] MEDS: FAMOTIDINE 10 MG TAB PO SCH (10:09)
[2022-05-16 10:20] VITALS: BP 98/59
== END 2022-05-16 12:53 | DRG 640 ==
LOC: ED 13:59 → 4A 22:05
PROVIDERS: ADMIT Internal Medicine; ATTEND Student in an Organized Health Care Education/Training Program
PROC: 5A1D70Z Performance of Urinary Filtration, Intermittent, Less than 6 Hours Per Day (ICD-10-PCS; principal; 2022-05-13)
PROC: 5A1D70Z Performance of Urinary Filtration, Intermittent, Less than 6 Hours Per Day (ICD-10-PCS; 2022-05-14)
PROC: 5A1D70Z Performance of Urinary Filtration, Intermittent, Less than 6 Hours Per Day (ICD-10-PCS; 2022-05-15)
PROC: 5A09357 Assistance with Respiratory Ventilation, Less than 24 Consecutive Hours, Continuous Positive Airway Pressure (ICD-10-PCS; 2022-05-15)
DX: E87.70 Fluid overload, unspecified (principal); J96.01 Acute respiratory failure with hypoxia; N18.6 End stage renal disease; J81.1 Chronic pulmonary edema; I12.0 Hypertensive chronic kidney disease with stage 5 chronic kidney disease or end stage renal disease; Z20.822 Contact with and (suspected) exposure to COVID-19; F31.9 Bipolar disorder, unspecified; Z99.2 Dependence on renal dialysis; E11.22 Type 2 diabetes mellitus with diabetic chronic kidney disease; D63.1 Anemia in chronic kidney disease; K21.9 Gastro-esophageal reflux disease without esophagitis; E66.01 Morbid (severe) obesity due to excess calories; Z79.4 Long term (current) use of insulin; Z79.899 Other long term (current) drug therapy; Z82.49 Family history of ischemic heart disease and other diseases of the circulatory system
CPT/HCPCS: 36415; 71045; 80048; 80053; 80074; 82962; 85025; 93005; 94660; 94760; 99285; G0378; J1644; U0003